=== PATIENT | female | born 1980 | race Caucasian/White ===

== ENCOUNTER 2020-09-19 12:57 | Emergency (ER) | payer OTHER, SELFPAY ==
[2020-09-19 13:23] VITALS: BP 155/96; PULSE 84; RESP 17; TEMP 36.7; O2SAT 95; BMI 27.4
--- NOTE | 2020-09-19 13:53 | ED.GENADULT ---
HPI - General Adult General Chief complaint: General Medical Stated complaint: L JAW PAIN Time Seen by Provider: 09/19/20 13:29 Source: patient Mode of arrival: ambulatory History of Present Illness HPI narrative: 40-year-old female with no significant past medical history presenting to the ED complaining of left jaw pain/swelling times a few days. Patient reports she has concern for possible abscess. Denies fever, ear pain, throat pain, intra oral swelling, difficulty swallowing, dental pain or issues Onset (ago): day(s) Related Data Previous Rx's Medication Instructions Recorded azithromycin [Zithromax TRI-JOSE MIGUEL] See Rx Instructions .ROUTE 09/19/20 .COMPLEX #6 tab Allergies Allergy/AdvReac Type Severity Reaction Status Date / Time amoxicillin [Amoxicillin] Allergy Intermediate HIVES Unverified 07/28/20 16:01 tramadol AdvReac Unknown SOB Verified 12/07/19 00:00 Review of Systems Review of Systems: Constitutional: No Weight loss, No Fever, + Chills ENT/Mouth: No Ear Pain, No Nasal Congestion, No Sinus Pain, No Hoarseness, No sore throat, No Rhinorrhea, No Swallowing Difficulty, +L jaw pain Cardiovascular: No Chest Pain, No SOB Respiratory: No Cough, No Sputum, No Wheezing Musculoskeletal: No joint pain, No Myalgias, No Joint Swelling Skin: No Skin Lesions, No rash Yes all other systems are reviewed and are negative [facility] Past Medical History Attestation statement: The following information was validated with the patient. Source: nursing notes reviewed Medical History (Updated 09/19/20 @ 16:32 by RAMONE Vazquez) Abscess Surgical History (Updated 09/19/20 @ 13:26 by Sylvia Brady RN) Tubal ligation status Social History Social History Advance Directives: No Advance Directives Information Provided: No Physical Exam Vital Signs: Vital Signs: Last Vital Signs Temp 98.3 F 09/19/20 15:36 Pulse 87 09/19/20 15:36 Resp 16 09/19/20 15:36 BP 159/89 H 09/19/20 15:36 Pulse Ox 100 09/19/20 15:36 Body Mass Index 27.4 Const: General: cooperative and healthy appearing Orientation/consciousness: patient oriented x3 Limitations: no limitations HENMT: Other: + left jaw at angle mandible swelling noted. No fluctuance, induration, or erythema. No crepitus. No TMJ or mastoid ttp Bilateral ears and intra oral mucosa WNL Ears: hearing grossly normal bilaterally, TM's normal bilaterally, mastoids normal and external ear abnormal General nose exam: Normal external nose present Mouth: Normal oral and palatal mucosa present, no drooling and no muffled voice Throat: Yes posterior oropharynx normal and Yes uvula midline Eyes: General: appearance normal, both eyes and all related structures EOM: EOMs intact bilaterally Neck: Neck: Yes normal visual inspection, Yes full ROM, Yes no meningeal signs, Yes trachea midline, Yes supple and No torticollis Resp: Effort & Inspection: normal respiratory effort, no respiratory distress and no stridor Skin: Rashes: no rashes Wounds: no wounds Neuro: General: patient oriented x3 and no meningeal signs Gait exam (Neuro): Normal gait present Extrem: General: Yes normal to inspection Course Course Course Narrative: -labs unremarkable -CT with out cystic or solid mass, interval adenopathy, abscess or acute inflammatory changes. Bilateral enlarged parotid glands in bilateral mildly atrophic submandibular glands with scattered fatty foci and some punctate parenchymal calcifications similar to prior CT >> labs/imaging results discussed with patient, with shared decision making will send patient home with antibiotic due to questionable unilateral lymphadenopathy and close PCP follow-up. Worrisome signs and symptoms and strict return precautions discussed. Patient verbalized understanding feel safe for discharge home Medical Decision Making MDM Narrative Medical decision making narrative: On exam VS, NAD/well-appearing left-sided jaw swelling. No evidence of ear or mouth involvement. Concern for possible abscess vs ? Lymphadenopathy. No evidence of SQUAD BOSS Plan: Labs, CT Lab Data Result diagrams: 09/19/20 14:02 09/19/20 14:02 Labs: Lab Results 09/19/20 09/19/20 Range/Units 14:02 14:02 WBC 5.2 (4.8-10.8) X10*3/uL RBC 3.91 L (4.20-5.50) X10*6/uL Hgb 10.0 L (12.0-16.0) g/dl Hct 33.1 L (37-47) % MCV 84.7 (80-98) fL MCH 25.6 L (27.0-33.0) pg MCHC 30.2 L (31.0-35.0) g/dl RDW 16.1 H (11.0-16.0) % Plt Count 197 (160-400) X10*3/uL MPV 12.4 H (9.4-12.3) fL Immature Gran % (Auto) Cancelled Neut % (Auto) Cancelled Lymph % (Auto) Cancelled [place] % (Auto) Cancelled Eos % (Auto) Cancelled Baso % (Auto) Cancelled Lymph # (Auto) Cancelled [place] # (Auto) Cancelled Eos # (Auto) Cancelled Baso # (Auto) Cancelled Abs Immat Gran (auto) Cancelled Absolute Neuts (auto) Cancelled Absolute Nucleated RBC 0.000 (0.0-0.012) X10*3/uL Nucleated RBC % (auto) 0.0 (0.0-0.2) /100WBC Neutrophils % (Manual) 76 H (45-73) % Band Neutrophils % 3 (3-5) % Lymphocytes % (Manual) 16 L (20-40) % Monocytes % (Manual) 5 (2-11) % Abs Neuts (Manual) 4.1 (2.2-7.9) X10*3/uL Lymphocytes # (Manual) 0.8 (0.6-4.8) X10*3/uL Monocytes # (Manual) 0.3 (0.0-1.2) X10*3/uL Platelet Estimate NORMAL (NORMAL) Plt Morphology Comment NORMAL RBC Morphology NOTED Hypochromasia 1+ Sodium 137 (135-145) mmol/L Potassium 4.5 (3.3-5.1) mmol/l Chloride 105 (96-108) mmol/L Carbon Dioxide 26 (22-29) mmol/L Anion Gap 11 L (12-20) BUN 12 (9-16) mg/dL Creatinine 0.83 (0.5-1.4) mg/dL Estim Creat Clear Calc 86.2 Estimated GFR > 60 Random Glucose 105 (60-115) mg/dL Calcium 8.4 (8.4-10.2) mg/dL Discharge Plan Discharge Clinical Impression: Lump Patient Disposition: Home, Self-Care Instructions: Lymphadenopathy (ED) Additional Instructions: Your blood work was unremarkable today in the ED Your CT scan did not show any acute findings The Z-jose miguel is an antibiotic, take as prescribed Take Tylenol and Motrin every 4-6 hours for pain/inflammation Apply ice or heat area Follow up with her doctor If area grows, turns red, looks infected, pain becomes unbearable, or spreads return to the ED Prescriptions: New azithromycin [Zithromax TRI-JOSE MIGUEL] 500 mg tablet See Rx Instructions .ROUTE .COMPLEX Qty: 6 RF: 0 Referrals: Physician,None [Primary Care Provider] - 2 days (Your primary care doctor)
--- NOTE | 2020-09-19 13:54 | CT_ITS ---
EXAMINATION: CT FACIAL WITH CONTRAST CLINICAL INFORMATION: Pain in soft tissue swelling left side near angle of jaw. Assess for cyst versus abscess/inflammatory. COMPARISON: CT neck soft tissues with contrast 03/26/2018 TECHNIQUE: Axial CT of the facial soft tissues and upper neck is performed in the axial plane using 85 mL Omnipaque 350 intravenous contrast. Additional 2-D coronal and sagittal reformatted images are generated on the CT workstation and uploaded to PACS. This CT examination was performed using dose optimization techniques as appropriate, variously including the following: *Automated exposure control *Adjustment of mA and/or kV according to patient size (this includes techniques or standardized protocols for targeted exams where dose is matched to indication/reason for exam; i.e. extremities or head) *Use of iterative reconstruction technique DLP: 376 mGy-cm FINDINGS: There is no cystic or solid mass, inflammatory changes in the soft tissue planes, or abscess. The parapharyngeal spaces are symmetric. The vallecula and epiglottis and area epiglottic folds and outbursts prevertebral soft tissues are unremarkable. Again, there is bilateral symmetric prominence of the parotid glands which show numerous scattered foci of fatty changes as well as some scattered punctate calcifications similar to prior CT. The bilateral submandibular glands again show some mild atrophy with scattered foci of fatty change again similar to prior CT. There are no inflammatory changes around the salivary glands. The bilateral infratemporal fossa and globes and retrobulbar soft tissues are unremarkable. There is no thrombophlebitis. No interval adenopathy or cystic susan changes. Prominent left submental node 0.6 cm short axis again noted. There is no fracture. The orbital rims and floors, zygomatic arches, pterygoid plates, mandible are intact. There are no air-fluid levels in the sinuses or middle ears or mastoids. Small polyp or retention cyst 1 cm again noted right maxillary sinus. CT/CT facial bones w con IMPRESSION: 1. No cystic or solid mass, interval adenopathy, abscess, or acute inflammatory changes. 2. Bilateral enlarged parotid glands and bilateral mildly atrophic submandibular glands with scattered glandular fatty foci and some punctate parenchymal calcifications similar to prior CT 2018.
[2020-09-19 14:12] LABS: Hematocrit 33.1 % (37-47); Mean Corpuscular HGB Conc 30.2 g/dl (31.0-35.0); Mean Corpuscular Hemoglobin 25.6 pg (27.0-33.0); Mean Corpuscular Volume 84.7 fL (80-98); Mean Platelet Volume 12.4 fL (9.4-12.3); Platelet Count 197 X10*3/uL (160-400); Red Blood Count 3.91 X10*6/uL (4.20-5.50); Red Cell Distribution Width 16.1 % (11.0-16.0)
[2020-09-19 14:13] LABS: WBC ABN SCTR FOR CBC 1
[2020-09-19 14:41] LABS: Anion Gap 11 (12-20); Blood Urea Nitrogen 12 mg/dL (9-16); Calcium 8.4 mg/dL (8.4-10.2); Carbon Dioxide 26 mmol/L (22-29); Chloride 105 mmol/L (96-108); Creatinine Clr Calc Pharmacy 86.2; Estimated Glomerular Filt Rate > 60; Glucose Random 105 mg/dL (60-115); Potassium 4.5 mmol/l (3.3-5.1); Sodium 137 mmol/L (135-145)
[2020-09-19 14:57] LABS: Band Neutrophils Percent 3 % (3-5); Lymphocytes Percent Manual 16 % (20-40); Monocytes Percent Manual 5 % (2-11); Neutrophils Percent Manual 76 % (45-73); RBC Morphology NOTED
[2020-09-19 15:02] LABS: Hypochromasia 1+; Platelet Estimate NORMAL (NORMAL); Platelet Morphology Comment NORMAL
[2020-09-19 15:03] LABS: Lymphocytes Absolute Manual 0.8 X10*3/uL (0.6-4.8); Monocytes Absolute Manual 0.3 X10*3/uL (0.0-1.2); Neutrophils Absolute Manual 4.1 X10*3/uL (2.2-7.9); White Blood Count 5.2 X10*3/uL (4.8-10.8)
[2020-09-19 15:36] VITALS: BP 159/89; PULSE 87; RESP 16; TEMP 36.8; O2SAT 100
[2020-09-19] MEDS: iohexoL 350 MG/ML 100 ML INFUS..BTL IV (15:45)
== END 2020-09-19 16:49 | disposition home or self-care (01) ==
PROVIDERS: Physician Assistant; Emergency Provider Emergency Medicine
DX: R68.84 Jaw pain (principal)
CPT/HCPCS: 36415; 70487; 80048; 85007; 85027; 99283; 99284; Q9967

== ENCOUNTER 2020-09-21 12:35 | Emergency (ER) | payer OTHER, SELFPAY ==
[2020-09-21 14:03] VITALS: BP 143/86; PULSE 67; RESP 16; TEMP 37.6; O2SAT 98; BMI 27.6
--- NOTE | 2020-09-21 15:13 | CT_ITS ---
EXAMINATION: CT HEAD WITHOUT CONTRAST CLINICAL INFORMATION: Headache and dizziness COMPARISON: Previous facial bone CT 09/19/[address] March 2018 TECHNIQUE: Contiguous axial imaging was performed from the skull base to vertex without intravenous administration of contrast. This CT examination was performed using dose optimization techniques as appropriate, variously including the following: *Automated exposure control *Adjustment of mA and/or kV according to patient size (this includes techniques or standardized protocols for targeted exams where dose is matched to indication/reason for exam; i.e. extremities or head) *Use of iterative reconstruction technique DLP: 668 mGy-cm FINDINGS: There is no evidence of acute intracranial hemorrhage or territorial infarction. No abnormal mass effect or midline shift is seen. Levine to white matter differentiation is well preserved. No extra-axial fluid collections are identified. The ventricles are normal in size. There is no abnormal attenuation within the brain parenchyma. The osseous structures and soft tissues are normal. There is a small polyp or cyst in the floor of the right maxillary sinus. 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 The visualized parotid glands appear prominent with areas of fatty infiltration or small cysts and small bilateral calcifications. This is similar to previous exams. CT/CT head/brain wo con IMPRESSION: No acute intracranial pathology. Prominent parotid glands with bilateral small parotid calcifications and areas of fatty infiltration versus small cysts.
[2020-09-21] MEDS: 0.9 % Sodium Chloride 1,000 ML 1000 ML IV (15:40)
[2020-09-21 15:48] LABS: Hematocrit 32.9 % (37-47); Hemoglobin 9.8 g/dl (12.0-16.0); Mean Corpuscular HGB Conc 29.8 g/dl (31.0-35.0); Mean Corpuscular Hemoglobin 25.1 pg (27.0-33.0); Mean Corpuscular Volume 84.4 fL (80-98); Mean Platelet Volume 12.3 fL (9.4-12.3); Platelet Count 210 X10*3/uL (160-400); Red Cell Distribution Width 15.9 % (11.0-16.0)
[2020-09-21 15:53] LABS: WBC ABN SCTR FOR CBC 1
[2020-09-21 16:11] LABS: White Blood Count 6.1 X10*3/uL (4.8-10.8)
[2020-09-21 16:15] LABS: Band Neutrophils Percent 1 % (3-5); Lymphocytes Absolute Manual 1.6 X10*3/uL (0.6-4.8); Lymphocytes Percent Manual 27 % (20-40); Monocytes Absolute Manual 0.5 X10*3/uL (0.0-1.2); Monocytes Percent Manual 8 % (2-11); Neutrophils Percent Manual 64 % (45-73)
[2020-09-21 16:17] LABS: Microcytosis 2+; Platelet Estimate NORMAL (NORMAL); Platelet Morphology Comment NORMAL
[2020-09-21 16:23] LABS: Alanine Aminotransferase 14 U/L (0-31); Albumin Level 3.9 g/dL (3.5-5.0); Alkaline Phosphatase 51 U/L (39-117); Anion Gap 14 (12-20); Aspartate Amino Transferase 15 U/L (5-31); Bilirubin Total 0.4 mg/dL (0.0-1.0); Blood Urea Nitrogen 14 mg/dL (9-16); Calcium 8.2 mg/dL (8.4-10.2); Carbon Dioxide 27 mmol/L (22-29); Chloride 101 mmol/L (96-108); Creatinine Clr Calc Pharmacy 91.9; Estimated Glomerular Filt Rate > 60; Glucose Random 79 mg/dL (60-115); Potassium 4.3 mmol/l (3.3-5.1); Sodium 138 mmol/L (135-145); Total Protein 7.3 g/dL (6.5-8.0)
[2020-09-21 16:28] LABS: Troponin-I High Sensitivity < 3.5 ng/L (<3.5-17.0)
[2020-09-21 16:47] VITALS: BP 152/85; PULSE 62
[2020-09-21 16:51] VITALS: BP 152/93; PULSE 62
[2020-09-21 16:52] LABS: Appearance Urine CLOUDY; Color Urine AMBER; Glucose Urine UA NEG (NEG); Leukocyte Esterase Urine 1+ (NEG); Nitrite Urine NEG (NEG); PH 5.5 (5.0-8.0); Specific Gravity - Urine >= 1.030 (1.005-1.025); Urine Blood 3+ (NEG); Urine Ketones NEG (NEG); Urine Protein 1+ MG/DL (NEG-TRACE)
[2020-09-21 16:53] VITALS: BP 157/92; PULSE 54
[2020-09-21 16:57] LABS: RBC Morphology NOTED
[2020-09-21 17:17] LABS: Amphetamine Screen Urine Not Detected (Not Detect); Barbiturates, Urine Not Detected (Not Detect); Benzodiazepines Screen Urine Not Detected (Not Detect); Cannabinoid Screen Urine POSITIVE (Not Detect); Cocaine Screen Urine Not Detected (Not Detect); Opiate Screen Urine POSITIVE (Not Detect); Phencyclidine Screen Urine Not Detected (Not Detect)
[2020-09-21 17:24] LABS: RBC Urine TNTC /HPF (0)
[2020-09-21 17:25] LABS: Mucus Urine 2+ /LPF; Squamous Epithelial Cell Urine 1+ /LPF
--- NOTE | 2020-09-21 19:22 | ED_ITS ---
HPI - Dizziness General Chief Complaint: Dizziness Stated Complaint: dizzy Time Seen by Provider: 09/21/20 15:13 Source: patient Mode of arrival: ambulatory Limitations: no limitations History of Present Illness HPI Narrative: States she was seen here 2 days ago for swelling glands and mild ear pain now having slight pain in the left ear again with dizziness. Denies headache, chest pain or shortness of breath. MD elicited complaint: dizziness Onset (ago): day(s) (1) Timing: gradual onset Severity: moderate Description: room spinning History of similar symptoms: Yes Exacerbating factors: movement/ambulation Relieving factors: remaining still Associated symptoms: denies other symptoms Related Data Previous Rx's Medication Instructions Recorded azithromycin [Zithromax TRI-JOSE MIGUEL] See Rx Instructions .ROUTE 09/19/20 .COMPLEX #6 tab meclizine 25 mg PO DAILY PRN #10 tab 09/21/20 Allergies Allergy/AdvReac Type Severity Reaction Status Date / Time amoxicillin [Amoxicillin] Allergy Intermediate HIVES Unverified 07/28/20 16:01 tramadol AdvReac Unknown SOB Verified 12/07/19 00:00 Review of Systems Review of Systems: Constitutional: No Weight loss, No Fever, No Chills, No Night Sweats, No Fatigue, No Malaise ENT/Mouth: No Hearing loss, No Ear Pain, No Nasal Congestion, No Sinus Pain, No Hoarseness, No sore throat, No Rhinorrhea, No Swallowing Difficulty Eyes: No Eye Pain, No Swelling, No Redness, No Foreign Body, No Discharge, No Vision Changes Cardiovascular: No Chest Pain, No SOB, No Dyspnea on Exertion, No Orthopnea, No Edema, No Palpitations Respiratory: No Cough, No Sputum, No Wheezing, No Smoke Exposure, No Dyspnea Gastrointestinal: No Nausea, No Vomiting, No Diarrhea, No Constipation, No abdominal Pain, No Hematochezia, No Melena Genitourinary: no irregular bleeding, No Dysuria, No Urinary Frequency, No Hematuria, No Urinary Incontinence, No Urgency, No Flank Pain, No Urinary Flow Changes, No Hesitancy Musculoskeletal: No joint pain, No Myalgias, No Joint Swelling Skin: No Skin Lesions, No rash Neuro: No Weakness, No Numbness, No Paresthesias, No Loss of Consciousness, No Headache Psych: No Anxiety/Panic, No Depression, No SI/HI/AH/VH, No Social Issues, Heme/Lymph: No Bruising, No Bleeding,No Lymphadenopathy Endocrine: No Polyuria, No Polydipsia, No Temperature Intolerance Yes all other systems are reviewed and are negative [facility] Past Medical History Attestation statement: The following information was validated with the patient. Medical History (Updated 09/22/20 @ 00:07 by Eladio Natarajan) Abscess Surgical History (Updated 09/19/20 @ 13:26 by Sylvia Brady RN) Tubal ligation status Social History Social History Advance Directives: No Advance Directives Information Provided: No Physical Exam Vital Signs: Vital Signs: Last Vital Signs Temp 99.7 F 09/21/20 14:03 Pulse 54 09/21/20 16:53 Resp 16 09/21/20 14:03 BP 157/92 H 09/21/20 16:53 Pulse Ox 98 09/21/20 14:03 Body Mass Index 27.6 Reviewed Const: General: cooperative and healthy appearing; No acute distress or intoxicated appearing Nutritional Appearance: average body habitus Orientation/consciousness: patient oriented x3 HENMT: Head: Yes normal to inspection Ears: hearing grossly normal bilaterally Eyes: General: appearance normal, both eyes and all related structures Visual Zheng: normal visual zheng by confrontation Neck: Neck: Yes normal visual inspection, No positive Brudzinski's sign, No positive Kernig's sign and No tender Thyroid: Thyroid normal Chest: Chest palpation & inspection: normal inspection of the chest Resp: Effort & Inspection: normal respiratory effort Cardio: Jugular venous distension: no JVD GI: Inspection: Yes normal to inspection Percussion: Yes normal to percussion Auscultation: normal bowel sounds : General: Yes no CVA tenderness Back/Spine/Pelvis: Back: no CVA tenderness Skin: General skin exam: no rashes or lesions noted Neuro: Other: Positive [place] Ambulates with steady straight gait General: patient oriented x3 Extrem: General: Yes normal to inspection Course Course Course Narrative: NIH/stroke scale negative MDM - Dizziness Differential Diagnosis Differential diagnosis: Likely adverse reaction to drug, benign paroxysmal positional vertigo, orthostatic hypotension and vertebral basilar insufficiency; Unlikely cerebrovascular accident, acute vestibular neuronitis and transient cerebral ischemia Medical Records Attestation: I reviewed the patient's medical records. Lab Data Attestation: I reviewed the patient's lab results. Result diagrams: 09/21/20 15:39 09/21/20 15:39 Labs: Lab Results 09/21/20 09/21/20 09/21/20 Range/Units 15:39 15:39 15:39 WBC 6.1 (4.8-10.8) X10*3/uL RBC 3.90 L (4.20-5.50) X10*6/uL Hgb 9.8 L (12.0-16.0) g/dl Hct 32.9 L (37-47) % MCV 84.4 (80-98) fL MCH 25.1 L (27.0-33.0) pg MCHC 29.8 L (31.0-35.0) g/dl RDW 15.9 (11.0-16.0) % Plt Count 210 (160-400) X10*3/uL MPV 12.3 (9.4-12.3) fL Immature Gran % (Auto) Cancelled Neut % (Auto) Cancelled Lymph % (Auto) Cancelled [place] % (Auto) Cancelled Eos % (Auto) Cancelled Baso % (Auto) Cancelled Lymph # (Auto) Cancelled [place] # (Auto) Cancelled Eos # (Auto) Cancelled Baso # (Auto) Cancelled Abs Immat Gran (auto) Cancelled Absolute Neuts (auto) Cancelled Absolute Nucleated RBC 0.000 (0.0-0.012) X10*3/uL Nucleated RBC % (auto) 0.0 (0.0-0.2) /100WBC Neutrophils % (Manual) 64 (45-73) % Band Neutrophils % 1 L (3-5) % Lymphocytes % (Manual) 27 (20-40) % Monocytes % (Manual) 8 (2-11) % Abs Neuts (Manual) 4.0 (2.2-7.9) X10*3/uL Lymphocytes # (Manual) 1.6 (0.6-4.8) X10*3/uL Monocytes # (Manual) 0.5 (0.0-1.2) X10*3/uL Platelet Estimate NORMAL (NORMAL) Plt Morphology Comment NORMAL RBC Morphology NOTED Microcytosis 2+ Sodium 138 (135-145) mmol/L Potassium 4.3 (3.3-5.1) mmol/l Chloride 101 (96-108) mmol/L Carbon Dioxide 27 (22-29) mmol/L Anion Gap 14 (12-20) BUN 14 (9-16) mg/dL Creatinine 0.78 (0.5-1.4) mg/dL Estim Creat Clear Calc 91.9 Estimated GFR > 60 Random Glucose 79 (60-115) mg/dL Calcium 8.2 L (8.4-10.2) mg/dL Total Bilirubin 0.4 (0.0-1.0) mg/dL AST 15 (5-31) U/L ALT 14 (0-31) U/L Alkaline Phosphatase 51 (39-117) U/L Troponin I High Sens < 3.5 (<3.5-17.0) ng/L Total Protein 7.3 (6.5-8.0) g/dL Albumin 3.9 (3.5-5.0) g/dL Urine Color Urine Appearance Urine pH (5.0-8.0) Ur Specific [place] (1.005-1.025) Urine Protein (NEG-TRACE) MG/DL Urine Glucose (UA) (NEG) MG/DL Urine Ketones (NEG) MG/DL Urine Blood (NEG) Urine Nitrite (NEG) Ur Leukocyte Esterase (NEG) Urine RBC (0) /HPF Urine WBC (0-4) /HPF Ur Squamous Epith Cells /LPF Urine Bacteria /LPF Urine Mucus /LPF Urine Opiates Screen (Not Detect) Ur Barbiturates Screen (Not Detect) Ur Phencyclidine Scrn (Not Detect) Ur Amphetamines Screen (Not Detect) U Benzodiazepines Scrn (Not Detect) Urine Cocaine Screen (Not Detect) U Marijuana (THC) Screen (Not Detect) 09/21/20 09/21/20 Range/Units 16:39 16:39 WBC (4.8-10.8) X10*3/uL RBC (4.20-5.50) X10*6/uL Hgb (12.0-16.0) g/dl Hct (37-47) % MCV (80-98) fL MCH (27.0-33.0) pg MCHC (31.0-35.0) g/dl RDW (11.0-16.0) % Plt Count (160-400) X10*3/uL MPV (9.4-12.3) fL Immature Gran % (Auto) Neut % (Auto) Lymph % (Auto) [place] % (Auto) Eos % (Auto) Baso % (Auto) Lymph # (Auto) [place] # (Auto) Eos # (Auto) Baso # (Auto) Abs Immat Gran (auto) Absolute Neuts (auto) Absolute Nucleated RBC (0.0-0.012) X10*3/uL Nucleated RBC % (auto) (0.0-0.2) /100WBC Neutrophils % (Manual) (45-73) % Band Neutrophils % (3-5) % Lymphocytes % (Manual) (20-40) % Monocytes % (Manual) (2-11) % Abs Neuts (Manual) (2.2-7.9) X10*3/uL Lymphocytes # (Manual) (0.6-4.8) X10*3/uL Monocytes # (Manual) (0.0-1.2) X10*3/uL Platelet Estimate (NORMAL) Plt Morphology Comment RBC Morphology Microcytosis Sodium (135-145) mmol/L Potassium (3.3-5.1) mmol/l Chloride (96-108) mmol/L Carbon Dioxide (22-29) mmol/L Anion Gap (12-20) BUN (9-16) mg/dL Creatinine (0.5-1.4) mg/dL Estim Creat Clear Calc Estimated GFR Random Glucose (60-115) mg/dL Calcium (8.4-10.2) mg/dL Total Bilirubin (0.0-1.0) mg/dL AST (5-31) U/L ALT (0-31) U/L Alkaline Phosphatase (39-117) U/L Troponin I High Sens (<3.5-17.0) ng/L Total Protein (6.5-8.0) g/dL Albumin (3.5-5.0) g/dL Urine Color ARBEN Urine Appearance CLOUDY Urine pH 5.5 (5.0-8.0) Ur Specific [place] >= 1.030 H (1.005-1.025) Urine Protein 1+ H (NEG-TRACE) MG/DL Urine Glucose (UA) NEG (NEG) MG/DL Urine Ketones NEG (NEG) MG/DL Urine Blood 3+ H (NEG) Urine Nitrite NEG (NEG) Ur Leukocyte Esterase 1+ H (NEG) Urine RBC TNTC H (0) /HPF Urine WBC 5-9 H (0-4) /HPF Ur Squamous Epith Cells 1+ /LPF Urine Bacteria NONE /LPF Urine Mucus 2+ /LPF Urine Opiates Screen POSITIVE H (Not Detect) Ur Barbiturates Screen Not Detected (Not Detect) Ur Phencyclidine Scrn Not Detected (Not Detect) Ur Amphetamines Screen Not Detected (Not Detect) U Benzodiazepines Scrn Not Detected (Not Detect) Urine Cocaine Screen Not Detected (Not Detect) U Marijuana (THC) Screen POSITIVE H (Not Detect) Discharge Plan Discharge Clinical Impression: Benign paroxysmal positional vertigo Patient Disposition: Home, Self-Care Instructions: Benign Paroxysmal Positional Vertigo (ED), Dizziness (ED) Prescriptions: New meclizine 25 mg tablet 25 mg PO DAILY PRN (Reason: dizziness) Qty: 10 RF: 0 No Action azithromycin [Zithromax TRI-JOSE MIGUEL] 500 mg tablet See Rx Instructions .ROUTE .COMPLEX Qty: 6 RF: 0 Referrals: Physician,None [Primary Care Provider] - 1 week (Primary care ) Stand Alone Forms: Work/School Release Interventions: ED Discharge Assessment Last Done: 09/21/20 19:34 Discharge Date/Time: 09/21/20 19:36
== END 2020-09-21 19:36 | disposition home or self-care (01) ==
PROVIDERS: Nurse Practitioner Primary Care; Emergency Provider Emergency Medicine
DX: H81.13 Benign paroxysmal vertigo, bilateral (principal); Z79.899 Other long term (current) drug therapy
CPT/HCPCS: 36415; 70450; 80053; 80307; 81001; 84484; 85007; 85025; 85027; 96360; 99283; 99284

== ENCOUNTER 2020-11-18 12:13 | Outpatient (REF) | payer OTHER, SELFPAY | END 2020-11-18 12:14 | disposition home or self-care (01) | LOC: HO.LAB 12:13 | PROVIDERS: Visit Provider Internal Medicine | DX: Z20.822 Contact with and (suspected) exposure to COVID-19 (principal) | CPT/HCPCS: 36415; C9803; U0003 ==

== ENCOUNTER 2020-11-23 13:28 | Outpatient (REF) | payer OTHER, SELFPAY | END 2020-11-23 13:29 | disposition home or self-care (01) | LOC: HO.LAB 13:28 | PROVIDERS: Visit Provider Internal Medicine | DX: Z20.822 Contact with and (suspected) exposure to COVID-19 (principal) | CPT/HCPCS: 36415; C9803; U0003 ==

== ENCOUNTER 2020-12-28 12:14 | Emergency (ER) | payer OTHER, SELFPAY ==
--- NOTE | ~2020-12-28 | CT_ITS ---
EXAMINATION: CT ABDOMEN AND PELVIS WITH CONTRAST CLINICAL INFORMATION: Nausea vomiting and abdominal pain COMPARISON: August 08, 2020 TECHNIQUE: Multidetector volumetric images were obtained from the superior aspect of the liver through the pubic symphysis following administration 85 mL of Omnipaque 350 intravenous contrast. Sagittal and coronal reformatted images were obtained on the technologist's workstation. Oral contrast: No This CT examination was performed using dose optimization techniques as appropriate, variously including the following: *Automated exposure control *Adjustment of mA and/or kV according to patient size (this includes techniques or standardized protocols for targeted exams where dose is matched to indication/reason for exam; i.e. extremities or head) *Use of iterative reconstruction technique DLP: 503 mGy-cm FINDINGS: LUNG BASES: Lung bases appear unremarkable without evidence of pleural or pericardial effusion. LIVER, GALLBLADDER, AND BILIARY TREE: The liver is normal in size, shape, and attenuation. No focal hepatic lesion or biliary ductal dilatation is present. The gallbladder is unremarkable with no evidence of radiopaque gallstones, gallbladder wall thickening, or obvious pericholecystic inflammatory changes. PANCREAS: Unremarkable. SPLEEN: Unremarkable. ADRENAL GLANDS: Unremarkable. KIDNEYS AND URETERS: The kidneys are normal in size, shape, and attenuation. No hydronephrosis, hydroureter, or calculi seen. No perinephric stranding. BLADDER: Unremarkable. GASTROINTESTINAL TRACT: No free air or free fluid is identified. No dilated large or small bowel are seen. There is no evidence of acute diverticulitis. No pericolonic inflammatory change. The appendix is visualized and appears unremarkable. ABDOMINAL WALL: No significant hernia is appreciated. LYMPH NODES: No lymphadenopathy is appreciated. VASCULAR: Unremarkable. PELVIC VISCERA: No abnormal pelvic mass or free fluid is appreciated. OSSEOUS STRUCTURES: No suspicious destructive bony lesions identified. CT/CT abdomen pelvis w con IMPRESSION: No evidence of ileus or obstruction. No free air or free fluid. No evidence of obstructive uropathy. No evidence of acute diverticulitis or acute appendicitis.
[2020-12-28 12:27] VITALS: BP 116/80; BP 175/95; PULSE 80; PULSE 86; RESP 20; TEMP 36.6; O2SAT 96; BMI 28.3
[2020-12-28] MEDS: Ketorolac Tromethamine 30 MG/ML VIAL IVPUSH (12:54)
[2020-12-28] MEDS: diphenhydrAMINE HCL 50 MG/ML VIAL IVPUSH (12:54)
[2020-12-28] MEDS: Metoclopramide HCl 10 MG/2 ML VIAL IVPUSH (12:54)
[2020-12-28] MEDS: 0.9 % Sodium Chloride 1,000 ML 999 ML IVCONT (12:55)
[2020-12-28 13:07] LABS: MANUAL DIFF FLAG NO
[2020-12-28 13:13] LABS: Basophils Percent Auto 0.3 % (0-2); Eosinophils Percent Auto 0.1 % (0-4); Hematocrit 36.1 % (37-47); Imm Gran Abs Auto 0.02 X10*3/uL (0.00-0.03); Imm Gran Pct Auto 0.3 % (0.0-0.4); Lymphocytes Absolute Auto 0.7 X10*3/uL (1.2-4.9); Lymphocytes Percent Auto 9.9 % (20-40); Mean Corpuscular HGB Conc 30.5 g/dl (31.0-35.0); Mean Platelet Volume 12.7 fL (9.4-12.3); Monocytes Absolute Auto 0.3 X10*3/uL (0.1-1.2); Monocytes Percent Auto 3.5 % (2-11); Neutrophils Absolute Auto 6.5 X10*3/uL (2.0-8.3); Neutrophils Percent Auto 85.9 % (45-73); Platelet Count 190 X10*3/uL (160-400); Red Cell Distribution Width 14.9 % (11.0-16.0); White Blood Count 7.5 X10*3/uL (4.8-10.8)
[2020-12-28 13:15] LABS: INTERNATIONAL NORM RATIO 1.2 (0.9-1.1)
--- NOTE | 2020-12-28 13:39 | ED_ITS ---
HPI - Abdominal Pain General Chief Complaint: General Medical Stated Complaint: CHILLS,N/V/D Time Seen by Provider: 12/28/20 12:33 Source: patient and EMS Mode of arrival: EMS Limitations: no limitations History of Present Illness HPI narrative: 40-year-old female with a past medical history of hypothyroidism, pyelonephritis, marijuana and opioid usage presenting to the ED with complaints of nausea/vomiting with diffuse abdominal pain that started today with associated chills. Reports she had a COVID test recently which was negative but unsure of the date. Denies recent travel or sick contacts or bad food exposure. Denies any focal weakness, weaight loss, dizziness, headaches, hemoptysis, jaw pain, chest pain, shortness of breath, sore throat, cough, dysuria, hematuria, vaginal discharge, diarrhea or any other symptoms complaints or concerns at this time. MD elicited complaint: abdominal pain Onset (ago): hour(s) Pain Consistency: constant Location: diffuse Severity: severe Quality: aching Radiation: none Migration to: no migration Exacerbating factors: nothing Relieving factors: nothing Associated symptoms: nausea, vomiting and chills Treatments prior to arrival: other (4 mg of Zofran IV via EMS no symptomatic relief) Related Data Previous Rx's Medication Instructions Recorded azithromycin [Zithromax TRI-JOSE MIGUEL] See Rx Instructions .ROUTE 09/19/20 .COMPLEX #6 tab meclizine 25 mg PO DAILY PRN #10 tab 09/21/20 naproxen 500 mg PO BID PRN #10 tab 12/28/20 oxycodone-acetaminophen [Percocet] 1 tab PO Q6H PRN #10 tab 12/28/20 prochlorperazine maleate 10 mg PO Q8H PRN #14 tab 12/28/20 [Compazine] Allergies Allergy/AdvReac Type Severity Reaction Status Date / Time amoxicillin [Amoxicillin] Allergy Intermediate HIVES Verified 12/28/20 12:27 tramadol AdvReac Intermediate SOB Verified 12/28/20 12:27 Review of Systems Review of Systems Constitutional : + Chills, No Weight loss, No Fever, No Night Sweats, No Fatigue, No Malaise ENT/Mouth: No ear pain, No sore throat, No Difficulty swallowing Cardiovascular : No Chest Pain, No SOB, No Dyspnea on Exertion, No Orthopnea, NoEdema, No Palpitations Respiratory : No Cough, No Sputum, No Wheezing, No Dyspnea Gastrointestinal : + Nausea, + Vomiting, + Abdominal pain, No Diarrhea, No Hematochezia, No Melena Genitourinary : No irregular bleeding, No Dysuria, No Urinary Frequency, No Hematuria,No Urinary Incontinence, No Urgency, No Flank Pain Musculoskeletal : No joint pain, No Myalgias, No Joint Swelling Skin : No Skin Lesions, No rash Neuro : No Weakness, No Numbness, No Paresthesias, No Loss of Consciousness, NoDizziness, No Headache Psych : No Social Issues, Heme/Lymph: No Bruising, No Bleeding,No Lymphadenopathy Endocrine : No Polyuria, No Polydipsia, No Temperature Intolerance Yes all other systems are reviewed and are negative Physical Exam Vital Signs: Vital Signs: Last Vital Signs Temp 98.2 F 12/28/20 16:12 Pulse 82 12/28/20 16:12 Resp 20 12/28/20 16:12 BP 165/77 H 12/28/20 16:12 Pulse Ox 100 12/28/20 16:12 Body Mass Index 28.3 vital signs have been reviewed as normal and appeared to be correct. Blood pressure hypertensive at 175/95. Heart rate normal. Respiration rate normal. Temperature normal. Oxygen saturation normal. Appearance: Alert. Actively vomiting throughout exam bilious emesis noted. Otherwise is Oriented X3 and No o ther acute distress. Head: Normal external exam. Normocephalic. Eyes: PERRLA. EOMI. Conjunctiva and sclera normal. Eyelids normal. ENT: Pharynx normal. Uvula midline. Moist mucous membranes. No trismus noted. No drooling noted. No muffled voice noted. Neck: Normal inspection. Neck supple. FROM. No adenopathy. No meningeal signs. CVS: Normal heart rate and rhythm. Heart sound normal. No murmurs noted. Pulses normal throughout. Respiratory: No respiratory distress. Painless inspiration. Breath sounds normal. No wheezes/rales/rhonchi noted. Chest nontender. No accessory muscle usage noted or decreased air movement noted. Abdomen: Soft and mild tenderness diffusely. Nondistended. No guarding. No rigidity. Bowel sounds normal in all 4 quadrants. No distention noted. No organomegaly noted. No visible injury noted. No rebound tenderness. Negative Rovsing sign. Negative obturator's sign. Negative psoas sign. Negative Lam sign. Back: No CVA tenderness. Full range of motion noted. Skin: Skin warm and dry. Normal skin color. Normal skin turgor. No rashes/lesions/lacerations noted. Extremities: Extremities exhibit normal range of motion. Extremities nontender. Neuro: Oriented X 3. No motor deficit. No sensory deficit. Reflexes normal. Course Course Course Narrative: 12:35pm - 40-year-old female with a past medical history of hypothyroidism, pyelonephritis, marijuana and opioid usage presenting to the ED with complaints of nausea/vomiting with diffuse abdominal pain that started today with associated chills. - patient received 4 mg of IV Zofran via EMS prior to arrival no symptomatic relief. When I enter the patient's room patient is actively vomiting bilious emesis otherwise in no other acute distress. Is alert and oriented x3. Mildly hypertensive otherwise all other vitals are within normal limits. Nontoxic appearing. No signs of dehydration. Abdomen is soft and mild tenderness to palpation diffusely. No CVA tenderness noted. - concern for viral syndrome vs appendicitis vs cholecystitis vs diverticulitis vs electrolyte abnormality - Plan: Labs, UA, Drug urine screen, CT scan of abd/pelvis c IV contrast. Provide a L of IV fluids, 10 mg of IV Reglan and 50 mg of IV Benadryl and re- evaluate. Reevaluation(s) Reevaluation #1: - Labs WNL. Serum quant negative for . Patient positive for marijuana. Negative for all other drugs. - UA with 15 ketones otherwise no signs of UTI. Urine negative. - COVID/RSV/flu negative. - CT scan of abdomen and pelvis within normal limits no acute processes noted. - I gave the patient 10 mg of Benadryl and Reglan and she did not have any symptomatic relief. Therefore I gave her 10 mg of Compazine and 4 mg of morphine and patient reports the Compazine is what made her feel much better therefore is requesting this to go home. She is able to tolerate p.o. fluids at this time. Will DC home with Compazine and symptomatic treatment along with instructions to return if any new or worsening symptoms to follow up with primary care provider. Patient understands agrees with this plan. Time: 16:48 [facility] - Abdominal Pain Medical Records Attestation: I reviewed the patient's medical records. Lab Data Attestation: I reviewed the patient's lab results. Result diagrams: 12/28/20 13:01 12/28/20 13:01 Labs: Lab Results 12/28/20 12/28/20 12/28/20 Range/Units 13:00 13:00 13:00 WBC (4.8-10.8) X10*3/uL RBC (4.20-5.50) X10*6/uL Hgb (12.0-16.0) g/dl Hct (37-47) % MCV (80-98) fL MCH (27.0-33.0) pg MCHC (31.0-35.0) g/dl RDW (11.0-16.0) % Plt Count (160-400) X10*3/uL MPV (9.4-12.3) fL Immature Gran % (Auto) (0.0-0.4) % Neut % (Auto) (45-73) % Lymph % (Auto) (20-40) % [place]ruff % (Auto) (2-11) % Eos % (Auto) (0-4) % Baso % (Auto) (0-2) % Lymph # (Auto) (1.2-4.9) X10*3/uL [place] # (Auto) (0.1-1.2) X10*3/uL Eos # (Auto) (0.0-0.4) X10*3/uL Baso # (Auto) (0.0-0.2) X10*3/uL Abs Immat Gran (auto) (0.00-0.03) X10*3/uL Absolute Neuts (auto) (2.0-8.3) X10*3/uL Absolute Nucleated RBC (0.0-0.012) X10*3/uL Nucleated RBC % (auto) (0.0-0.2) /100WBC PT 14.0 H (10.8-13.0) SEC INR 1.2 H (0.9-1.1) Sodium (135-145) mmol/L Potassium (3.3-5.1) mmol/L Chloride (96-108) mmol/L Carbon Dioxide (22-29) mmol/L Anion Gap (12-20) BUN (9-16) mg/dL Creatinine (0.5-1.4) mg/dL Estim Creat Clear Calc Estimated GFR Random Glucose (60-115) mg/dL Calcium (8.4-10.2) mg/dL Magnesium (1.6-2.6) mg/dL Ferritin (10-250) ng/mL Total Bilirubin (0.0-1.0) mg/dL Direct Bilirubin (0.0-0.5) mg/dL AST (5-31) U/L ALT (0-31) U/L Alkaline Phosphatase (39-117) U/L Lactate Dehydrogenase (122-220) U/L C-Reactive Protein (< or = 0.50) mg/dL Total Protein (6.5-8.0) g/dL Albumin (3.5-5.0) g/dL Procalcitonin < 0.02 ng/mL Beta HCG, Quant mIU/mL Urine Color Urine Appearance Urine pH (5.0-8.0) Ur Specific [place] (1.005-1.025) Urine Protein (NEG-TRACE) MG/DL Urine Glucose (UA) (NEG) MG/DL Urine Ketones (NEG) MG/DL Urine Blood (NEG) Urine Nitrite (NEG) Ur Leukocyte Esterase (NEG) Urine Test (NEGATIVE) Urine Opiates Screen (Not Detect) Ur Barbiturates Screen (Not Detect) Ur Phencyclidine Scrn (Not Detect) Ur Amphetamines Screen (Not Detect) U Benzodiazepines Scrn (Not Detect) Urine Cocaine Screen (Not Detect) U Marijuana (THC) Screen (Not Detect) Coronavirus (PCR) NEGATIVE (Negative) Influenza Type A (PCR) NEGATIVE (Negative) Influenza Type B (PCR) NEGATIVE (Negative) RSV RNA Qual (PCR) NEGATIVE (Negative) 12/28/20 12/28/20 12/28/20 Range/Units 13:01 13:01 13:01 WBC 7.5 (4.8-10.8) X10*3/uL RBC 4.40 (4.20-5.50) X10*6/uL Hgb 11.0 L (12.0-16.0) g/dl Hct 36.1 L (37-47) % MCV 82.0 (80-98) fL MCH 25.0 L (27.0-33.0) pg MCHC 30.5 L (31.0-35.0) g/dl RDW 14.9 (11.0-16.0) % Plt Count 190 (160-400) X10*3/uL MPV 12.7 H (9.4-12.3) fL Immature Gran % (Auto) 0.3 (0.0-0.4) % Neut % (Auto) 85.9 H (45-73) % Lymph % (Auto) 9.9 L (20-40) % Woodruff % (Auto) 3.5 (2-11) % Eos % (Auto) 0.1 (0-4) % Baso % (Auto) 0.3 (0-2) % Lymph # (Auto) 0.7 L (1.2-4.9) X10*3/uL [place] # (Auto) 0.3 (0.1-1.2) X10*3/uL Eos # (Auto) 0.0 (0.0-0.4) X10*3/uL Baso # (Auto) 0.0 (0.0-0.2) X10*3/uL Abs Immat Gran (auto) 0.02 (0.00-0.03) X10*3/uL Absolute Neuts (auto) 6.5 (2.0-8.3) X10*3/uL Absolute Nucleated RBC 0.000 (0.0-0.012) X10*3/uL Nucleated RBC % (auto) 0.0 (0.0-0.2) /100WBC PT (10.8-13.0) SEC INR (0.9-1.1) Sodium 138 (135-145) mmol/L Potassium 3.8 (3.3-5.1) mmol/L Chloride 107 (96-108) mmol/L Carbon Dioxide 23 (22-29) mmol/L Anion Gap 12 (12-20) BUN 9 (9-16) mg/dL Creatinine 0.78 (0.5-1.4) mg/dL Estim Creat Clear Calc 93.1 Estimated GFR > 60 Random Glucose 126 H D (60-115) mg/dL Calcium 8.8 D (8.4-10.2) mg/dL Magnesium 1.9 (1.6-2.6) mg/dL Ferritin 13 (10-250) ng/mL Total Bilirubin 0.6 (0.0-1.0) mg/dL Direct Bilirubin 0.2 (0.0-0.5) mg/dL AST 19 (5-31) U/L ALT 18 (0-31) U/L Alkaline Phosphatase 56 (39-117) U/L Lactate Dehydrogenase 179 (122-220) U/L C-Reactive Protein 0.29 (< or = 0.50) mg/dL Total Protein 8.1 H (6.5-8.0) g/dL Albumin 4.4 (3.5-5.0) g/dL Procalcitonin ng/mL Beta HCG, Quant < 2 mIU/mL Urine Color Urine Appearance Urine pH (5.0-8.0) Ur Specific [place] (1.005-1.025) Urine Protein (NEG-TRACE) MG/DL Urine Glucose (UA) (NEG) MG/DL Urine Ketones (NEG) MG/DL Urine Blood (NEG) Urine Nitrite (NEG) Ur Leukocyte Esterase (NEG) Urine Test (NEGATIVE) Urine Opiates Screen (Not Detect) Ur Barbiturates Screen (Not Detect) Ur Phencyclidine Scrn (Not Detect) Ur Amphetamines Screen (Not Detect) U Benzodiazepines Scrn (Not Detect) Urine Cocaine Screen (Not Detect) U Marijuana (THC) Screen (Not Detect) Coronavirus (PCR) (Negative) Influenza Type A (PCR) (Negative) Influenza Type B (PCR) (Negative) RSV RNA Qual (PCR) (Negative) 12/28/20 12/28/20 Range/Units 14:24 14:24 WBC (4.8-10.8) X10*3/uL RBC (4.20-5.50) X10*6/uL Hgb (12.0-16.0) g/dl Hct (37-47) % MCV (80-98) fL MCH (27.0-33.0) pg MCHC (31.0-35.0) g/dl RDW (11.0-16.0) % Plt Count (160-400) X10*3/uL MPV (9.4-12.3) fL Immature Gran % (Auto) (0.0-0.4) % Neut % (Auto) (45-73) % Lymph % (Auto) (20-40) % Woodruff % (Auto) (2-11) % Eos % (Auto) (0-4) % Baso % (Auto) (0-2) % Lymph # (Auto) (1.2-4.9) X10*3/uL [place] # (Auto) (0.1-1.2) X10*3/uL Eos # (Auto) (0.0-0.4) X10*3/uL Baso # (Auto) (0.0-0.2) X10*3/uL Abs Immat Gran (auto) (0.00-0.03) X10*3/uL Absolute Neuts (auto) (2.0-8.3) X10*3/uL Absolute Nucleated RBC (0.0-0.012) X10*3/uL Nucleated RBC % (auto) (0.0-0.2) /100WBC PT (10.8-13.0) SEC INR (0.9-1.1) Sodium (135-145) mmol/L Potassium (3.3-5.1) mmol/L Chloride (96-108) mmol/L Carbon Dioxide (22-29) mmol/L Anion Gap (12-20) BUN (9-16) mg/dL Creatinine (0.5-1.4) mg/dL Estim Creat Clear Calc Estimated GFR Random Glucose (60-115) mg/dL Calcium (8.4-10.2) mg/dL Magnesium (1.6-2.6) mg/dL Ferritin (10-250) ng/mL Total Bilirubin (0.0-1.0) mg/dL Direct Bilirubin (0.0-0.5) mg/dL AST (5-31) U/L ALT (0-31) U/L Alkaline Phosphatase (39-117) U/L Lactate Dehydrogenase (122-220) U/L C-Reactive Protein (< or = 0.50) mg/dL Total Protein (6.5-8.0) g/dL Albumin (3.5-5.0) g/dL Procalcitonin ng/mL Beta HCG, Quant mIU/mL Urine Color STRAW Urine Appearance HAZY Urine pH 8.5 H (5.0-8.0) Ur Specific [place] 1.020 (1.005-1.025) Urine Protein NEG (NEG-TRACE) MG/DL Urine Glucose (UA) NEG (NEG) MG/DL Urine Ketones 15 (NEG) MG/DL Urine Blood NEG (NEG) Urine Nitrite NEG (NEG) Ur Leukocyte Esterase NEG (NEG) Urine Test NEGATIVE (NEGATIVE) Urine Opiates Screen Not Detected (Not Detect) Ur Barbiturates Screen Not Detected (Not Detect) Ur Phencyclidine Scrn Not Detected (Not Detect) Ur Amphetamines Screen Not Detected (Not Detect) U Benzodiazepines Scrn Not Detected (Not Detect) Urine Cocaine Screen Not Detected (Not Detect) U Marijuana (THC) Screen POSITIVE H (Not Detect) Coronavirus (PCR) (Negative) Influenza Type A (PCR) (Negative) Influenza Type B (PCR) (Negative) RSV RNA Qual (PCR) (Negative) Imaging Data CT scan of abdomen and pelvis with IV contrast: Attestation: I personally reviewed and interpreted this imaging study as follows: Radiologist's impression: FINDINGS: LUNG BASES: Lung bases appear unremarkable without evidence of pleural or pericardial effusion. LIVER, GALLBLADDER, AND BILIARY TREE: The liver is normal in size, shape, and attenuation. No focal hepatic lesion or biliary ductal dilatation is present. The gallbladder is unremarkable with no evidence of radiopaque gallstones, gallbladder wall thickening, or obvious pericholecystic inflammatory changes. PANCREAS: Unremarkable. SPLEEN: Unremarkable. ADRENAL GLANDS: Unremarkable. KIDNEYS AND URETERS: The kidneys are normal in size, shape, and attenuation. No hydronephrosis, hydroureter, or calculi seen. No perinephric stranding. BLADDER: Unremarkable. GASTROINTESTINAL TRACT: No free air or free fluid is identified. No dilated large or small bowel are seen. There is no evidence of acute diverticulitis. No pericolonic inflammatory change. The appendix is visualized and appears unremarkable. ABDOMINAL WALL: No significant hernia is appreciated. LYMPH NODES: No lymphadenopathy is appreciated. VASCULAR: Unremarkable. PELVIC VISCERA: No abnormal pelvic mass or free fluid is appreciated. OSSEOUS STRUCTURES: No suspicious destructive bony lesions identified. CT/CT abdomen pelvis w con IMPRESSION: No evidence of ileus or obstruction. No free air or free fluid. No evidence of obstructive uropathy. No evidence of acute diverticulitis or acute appendicitis. Discharge Plan Discharge Clinical Impression: Abdominal pain, Nausea & vomiting Patient Disposition: Home, Self-Care Instructions: Acute Nausea and Vomiting (ED), Abdominal Pain (ED) Prescriptions: New prochlorperazine maleate [Compazine] 10 mg tablet 10 mg PO Q8H PRN (Reason: nausea and vomiting) Qty: 14 RF: 0 oxycodone-acetaminophen [Percocet] 5-325 mg tablet 1 tab PO Q6H PRN (Reason: pain) Qty: 10 RF: 0 naproxen 500 mg tablet 500 mg PO BID PRN (Reason: pain) Qty: 10 RF: 0 No Action meclizine 25 mg tablet 25 mg PO DAILY PRN (Reason: dizziness) Qty: 10 RF: 0 azithromycin [Zithromax TRI-JOSE MIGUEL] 500 mg tablet See Rx Instructions .ROUTE .COMPLEX Qty: 6 RF: 0 Referrals: Physician,None [Primary Care Provider] - 2 days (your pcp) Stand Alone Forms: Work/School Release Print Language: Croatian [facility] Past Medical History Attestation statement: The following information was validated with the patient. Medical History Abscess Surgical History Tubal ligation status Social History Social History Alcohol intake: current Alcohol intake frequency: holidays/special occasions only Smoking Status: Current every day smoker Use of substances other than those prescribed or required for medical reasons: Yes Substance Use Type: Marijuana Last Used Substance: Days (ago) Advance Directives: No Advance Directives Information Provided: No
[2020-12-28 13:47] LABS: Alanine Aminotransferase 18 U/L (0-31); Albumin Level 4.4 g/dL (3.5-5.0); Alkaline Phosphatase 56 U/L (39-117); Anion Gap 12 (12-20); Aspartate Amino Transferase 19 U/L (5-31); Bilirubin Direct 0.2 mg/dL (0.0-0.5); Bilirubin Total 0.6 mg/dL (0.0-1.0); Blood Urea Nitrogen 9 mg/dL (9-16); C Reactive Protein 0.29 mg/dL (< or = 0.50); Calcium 8.8 mg/dL (8.4-10.2); Carbon Dioxide 23 mmol/L (22-29); Chloride 107 mmol/L (96-108); Creatinine Clr Calc Pharmacy 93.1; Estimated Glomerular Filt Rate > 60; Glucose Random 126 mg/dL (60-115); Lactate Dehydrogenase 179 U/L (122-220); Magnesium 1.9 mg/dL (1.6-2.6); Potassium 3.8 mmol/L (3.3-5.1); Sodium 138 mmol/L (135-145); Total Protein 8.1 g/dL (6.5-8.0)
[2020-12-28 13:51] LABS: Influenza A PCR NEGATIVE (Negative); Influenza B PCR NEGATIVE (Negative); Resp Syncy Virus RNA Qual PCR NEGATIVE (Negative); SARS COV2 PCR INHOUSE NEGATIVE (Negative)
[2020-12-28 13:57] LABS: Ferritin 13 ng/mL (10-250)
--- NOTE | 2020-12-28 14:18 | PC.NURSE ---
patient a&ox3, c/o 08/20 abd pain, vitals stable, pt medicated per order, labs drawn, pt aware we need urine, will continue to monitor.
[2020-12-28 14:20] LABS: Procalcitonin < 0.02 ng/mL
[2020-12-28 14:21] VITALS: BP 181/93; PULSE 74; RESP 20; TEMP 36.8; O2SAT 100
[2020-12-28 14:39] LABS: Glucose Urine UA NEG (NEG); Leukocyte Esterase Urine NEG (NEG); Nitrite Urine NEG (NEG); PH 8.5 (5.0-8.0); Urine Blood NEG (NEG); Urine Ketones 15 MG/DL (NEG); Urine Protein NEG (NEG-TRACE)
[2020-12-28 14:40] LABS: Appearance Urine HAZY; Color Urine STRAW
[2020-12-28 14:41] LABS: UPreg QC Valid YES; Urine Pregnancy NEGATIVE (NEGATIVE)
[2020-12-28 14:43] LABS: HCG Quantitative < 2 mIU/mL
--- NOTE | 2020-12-28 14:51 | PC.NURSE ---
patient continues to c/o 08/20 abd pain, nausea/vomiting, provider notified, pts daughter kamryn called per request of patient she was updated on her mothers status
[2020-12-28] MEDS: Morphine Sulfate 4 MG/ML CARTRIDGE IVPUSH (15:03)
[2020-12-28] MEDS: Prochlorperazine Edisylate 10 MG/2 ML VIAL IVPUSH (15:04)
--- NOTE | 2020-12-28 15:04 | PC.NURSE ---
patient medicated for pain per order
[2020-12-28 15:08] LABS: Amphetamine Screen Urine Not Detected (Not Detect); Barbiturates, Urine Not Detected (Not Detect); Benzodiazepines Screen Urine Not Detected (Not Detect); Cannabinoid Screen Urine POSITIVE (Not Detect); Cocaine Screen Urine Not Detected (Not Detect); Opiate Screen Urine Not Detected (Not Detect); Phencyclidine Screen Urine Not Detected (Not Detect)
[2020-12-28] MEDS: iohexoL 350 MG/ML 100 ML INFUS..BTL 85 ML IV (15:44)
[2020-12-28 16:12] VITALS: BP 165/77; PULSE 82; RESP 20; TEMP 36.8; O2SAT 100
--- NOTE | 2020-12-28 16:13 | PC.NURSE ---
gaurang a&ox3, pt states she is sweating and cold at the same time, c/o 8 abd pain and states her nausea is only a little bit better, vss, will continue to montior
== END 2020-12-28 17:35 | disposition home or self-care (01) ==
PROVIDERS: Physician Assistant Medical; Emergency Provider Emergency Medicine
DX: R10.9 Unspecified abdominal pain (principal); R11.2 Nausea with vomiting, unspecified; F12.90 Cannabis use, unspecified, uncomplicated; F11.10 Opioid abuse, uncomplicated; F17.200 Nicotine dependence, unspecified, uncomplicated; Z71.6 Tobacco abuse counseling; Z20.822 Contact with and (suspected) exposure to COVID-19
CPT/HCPCS: 0241U; 36415; 74177; 80048; 80076; 80307; 81003; 81025; 82728; 83615; 83735; 84145; 84702; 85025; 85610; 86140; 96361; 96374; 96375; 99284; J1200; J1885; J2270; J2765; Q9967

== ENCOUNTER 2020-12-31 15:44 | Emergency (ER) | payer OTHER, SELFPAY ==
[2020-12-31 16:13] VITALS: BP 134/103; PULSE 89; RESP 16; TEMP 37.7; O2SAT 98; BMI 27.4
[2020-12-31 21:05] VITALS: BP 163/93; PULSE 79; RESP 18; TEMP 37.4; O2SAT 100
[2020-12-31 21:16] LABS: Basophils Percent Auto 0.1 % (0-2); Hematocrit 36.3 % (37-47); Hemoglobin 11.2 g/dl (12.0-16.0); Imm Gran Abs Auto 0.02 X10*3/uL (0.00-0.03); Imm Gran Pct Auto 0.2 % (0.0-0.4); Lymphocytes Absolute Auto 1.9 X10*3/uL (1.2-4.9); Lymphocytes Percent Auto 21.4 % (20-40); MANUAL DIFF FLAG NO; Mean Corpuscular HGB Conc 30.9 g/dl (31.0-35.0); Mean Corpuscular Hemoglobin 24.9 pg (27.0-33.0); Mean Corpuscular Volume 80.7 fL (80-98); Monocytes Absolute Auto 0.8 X10*3/uL (0.1-1.2); Monocytes Percent Auto 8.8 % (2-11); Neutrophils Absolute Auto 6.2 X10*3/uL (2.0-8.3); Neutrophils Percent Auto 69.5 % (45-73); Platelet Count 232 X10*3/uL (160-400); Red Cell Distribution Width 15.2 % (11.0-16.0); WBC ABN SCTR 1
[2020-12-31 21:17] LABS: WBC ABN SCTR FOR CBC 1; White Blood Count 8.9 X10*3/uL (4.8-10.8)
[2020-12-31] MEDS: 0.9 % Sodium Chloride 1,000 ML 999 ML IVCONT (21:23)
--- NOTE | 2020-12-31 21:23 | ECG_ITS ---
Test Reason : ABDOMINAL PAIN Blood Pressure : / mmHG Vent. Rate : 074 BPM Atrial Rate : 074 BPM P-R Int : 138 ms QRS Dur : 090 ms QT Int : 450 ms P-R-T Axes : 061 062 042 degrees QTc Int : 499 ms Normal sinus rhythm Possible Left atrial enlargement Left ventricular hypertrophy Prolonged QT Abnormal ECG No previous ECGs available Referred By: Sydnee Ricks Electronically Signed By:Benjamin Zayas
--- NOTE | 2020-12-31 21:24 | ED_ITS ---
HPI - Abdominal Pain General Chief Complaint: Abdominal Pain Stated Complaint: abd pain, vomiting Time Seen by Provider: 12/31/20 21:10 Source: patient Mode of arrival: ambulatory Limitations: no limitations History of Present Illness HPI narrative: Patient comes to emergency room complaining of nausea and vomiting and epigastric burning. Patient was seen here on December 28 for the same reason. Patient also had a CT scan done which showed no acute pathology. Patient admits that she has been constantly smoking marijuana. Patient reports 1 episode of loose stool. Patient states that Zofran and Compazine did not work is to control the nausea and vomiting MD elicited complaint: other (Nausea vomiting) Related Data Previous Rx's Medication Instructions Recorded azithromycin [Zithromax TRI-JOSE MIGUEL] See Rx Instructions .ROUTE 09/19/20 .COMPLEX #6 tab meclizine 25 mg PO DAILY PRN #10 tab 09/21/20 naproxen 500 mg PO BID PRN #10 tab 12/28/20 oxycodone-acetaminophen [Percocet] 1 tab PO Q6H PRN #10 tab 12/28/20 prochlorperazine maleate 10 mg PO Q8H PRN #14 tab 12/28/20 [Compazine] promethazine 25 mg PO Q6H PRN #14 tab 12/31/20 Allergies Allergy/AdvReac Type Severity Reaction Status Date / Time amoxicillin [Amoxicillin] Allergy Intermediate HIVES Verified 12/28/20 12:27 tramadol AdvReac Intermediate SOB Verified 12/28/20 12:27 Review of Systems Review of Systems Constitutional : No Weight loss, No Fever, No Chills, No Night Sweats, No Fatigue, No Malaise ENT/Mouth : No Hearing loss, No Ear Pain, No Nasal Congestion, No Sinus Pain, No Hoarseness, No sore throat, No Rhinorrhea, No Swallowing Difficulty Eyes: No Eye Pain, No Swelling, No Redness, No Foreign Body, No Discharge, No Vision Changes Cardiovascular : No Chest Pain, No SOB, No Dyspnea on Exertion, No Orthopnea, No Edema, No Palpitations Respiratory : No Cough, No Sputum, No Wheezing, No Smoke Exposure, No Dyspnea Gastrointestinal : Complaining of nausea, vomiting, 1 episode of loose stool, No Constipation, epigastric burning sensation, No Hematochezia, No Melena Genitourinary : no irregular bleeding, No Dysuria, No Urinary Frequency, No Hematuria, No Urinary Incontinence, No Urgency, No Flank Pain, No Urinary Flow Changes, No Hesitancy Musculoskeletal : No joint pain, No Myalgias, No Joint Swelling Skin : No Skin Lesions, No rash Neuro : No Weakness, No Numbness, No Paresthesias, No Loss of Consciousness, No Dizziness, No Headache Psych : No Anxiety/Panic, No Depression, No SI/HI/AH/VH, No Social Issues, Heme/Lymph: No Bruising, No Bleeding,No Lymphadenopathy Endocrine : No Polyuria, No Polydipsia, No Temperature Intolerance Physical Exam Vital Signs: Vital Signs: Last Vital Signs Temp 98.2 F 12/31/20 21:52 Pulse 79 12/31/20 21:52 Resp 18 12/31/20 21:52 BP 165/90 H 12/31/20 21:52 Pulse Ox 98 12/31/20 21:52 Body Mass Index 27.4 Appearance: Alert. Oriented X3. Mild distress, seems uncomfortable Eyes: Pupils equal, round and reactive to light. ENT: Pharynx normal. Neck: Normal inspection. Neck supple. No lymph nodes noted. No crepitus CVS: Normal heart rate and rhythm. Pulses normal. Normal S1 and S2 Respiratory: No respiratory distress. Breath sounds normal. No Wheezing. No rales Abdomen: Soft and nontender. No rigidity. No distention. good BS x4 Skin: Skin warm and dry. Normal skin color. Normal skin turgor. Extremities: No lower extremity edema. No lower extremity edema. No Lacerations. No Rash Neuro: Oriented X 3. No motor deficit. No sensory deficit. Moving all extermities. No slurred speech. Course Course Course Narrative: Patient has not vomited in the emergency room, patient more comfortable, patient had good effect with Phenergan. I discussed with the patient to stop smoking marijuana, patient states she was not aware that marijuana can cause cyclical vomiting, but now she is aware. MDM - Abdominal Pain Lab Data Result diagrams: 12/31/20 21:09 12/31/20 21:09 Labs: Lab Results 12/31/20 12/31/20 12/31/20 Range/Units 21:09 21:09 21:09 WBC 8.9 (4.8-10.8) X10*3/uL RBC 4.50 (4.20-5.50) X10*6/uL Hgb 11.2 L (12.0-16.0) g/dl Hct 36.3 L (37-47) % MCV 80.7 (80-98) fL MCH 24.9 L (27.0-33.0) pg MCHC 30.9 L (31.0-35.0) g/dl RDW 15.2 (11.0-16.0) % Plt Count 232 (160-400) X10*3/uL MPV 12.0 (9.4-12.3) fL Immature Gran % (Auto) 0.2 (0.0-0.4) % Neut % (Auto) 69.5 (45-73) % Lymph % (Auto) 21.4 (20-40) % [place] % (Auto) 8.8 (2-11) % Eos % (Auto) 0.0 (0-4) % Baso % (Auto) 0.1 (0-2) % Lymph # (Auto) 1.9 (1.2-4.9) X10*3/uL [place] # (Auto) 0.8 (0.1-1.2) X10*3/uL Eos # (Auto) 0.0 (0.0-0.4) X10*3/uL Baso # (Auto) 0.0 (0.0-0.2) X10*3/uL Abs Immat Gran (auto) 0.02 (0.00-0.03) X10*3/uL Absolute Neuts (auto) 6.2 (2.0-8.3) X10*3/uL Absolute Nucleated RBC 0.000 (0.0-0.012) X10*3/uL Nucleated RBC % (auto) 0.0 (0.0-0.2) /100WBC Hold Blue Top SEE NOTE Sodium 140 (135-145) mmol/L Potassium 3.3 (3.3-5.1) mmol/L Chloride 104 (96-108) mmol/L Carbon Dioxide 24 (22-29) mmol/L Anion Gap 15 (12-20) BUN 13 (9-16) mg/dL Creatinine 0.83 (0.5-1.4) mg/dL Estim Creat Clear Calc 86.2 Estimated GFR > 60 Random Glucose 111 (60-115) mg/dL Calcium 9.4 D (8.4-10.2) mg/dL Total Bilirubin 0.8 (0.0-1.0) mg/dL Direct Bilirubin 0.3 (0.0-0.5) mg/dL AST 20 (5-31) U/L ALT 15 (0-31) U/L Alkaline Phosphatase 57 (39-117) U/L Total Protein 8.9 H (6.5-8.0) g/dL Albumin 4.8 (3.5-5.0) g/dL Lipase 35 (8-78) U/L Discharge Plan Discharge Clinical Impression: Cyclical vomiting Patient Disposition: Home, Self-Care Instructions: Cyclic Vomiting Syndrome (ED) Additional Instructions: Please follow-up with your primary care physician tomorrow. If you have any worsening or new symptoms, please return to the emergency room or call 911 Prescriptions: New promethazine 25 mg tablet 25 mg PO Q6H PRN (Reason: nausea and vomiting) Qty: 14 RF: 0 No Action meclizine 25 mg tablet 25 mg PO DAILY PRN (Reason: dizziness) Qty: 10 RF: 0 prochlorperazine maleate [Compazine] 10 mg tablet 10 mg PO Q8H PRN (Reason: nausea and vomiting) Qty: 14 RF: 0 oxycodone-acetaminophen [Percocet] 5-325 mg tablet 1 tab PO Q6H PRN (Reason: pain) Qty: 10 RF: 0 naproxen 500 mg tablet 500 mg PO BID PRN (Reason: pain) Qty: 10 RF: 0 azithromycin [Zithromax TRI-JOSE MIGUEL] 500 mg tablet See Rx Instructions .ROUTE .COMPLEX Qty: 6 RF: 0 Stand Alone Forms: Work/School Release [facility] Past Medical History Medical History (Updated 12/31/20 @ 23:51 by Sydnee Ricks MD) Abscess Cyclical vomiting Surgical History Tubal ligation status Social History Social History Alcohol intake: never Smoking Status: Current every day smoker Substance Use Type: Marijuana Substance Use Frequency: Occasionally Advance Directives: No Advance Directives Information Provided: Yes
[2020-12-31] MEDS: Famotidine/PF 20 MG/2 ML VIAL IVPUSH (21:33)
[2020-12-31] MEDS: Lidocaine HCl Viscous 2 % 15 ML SOLUTION MUCOUS MEM (21:34)
[2020-12-31] MEDS: Magnesium Hydrox/Alum Hydrox 30 ML ORAL.SUSP PO (21:34)
[2020-12-31 21:38] LABS: Alanine Aminotransferase 15 U/L (0-31); Albumin Level 4.8 g/dL (3.5-5.0); Alkaline Phosphatase 57 U/L (39-117); Anion Gap 15 (12-20); Aspartate Amino Transferase 20 U/L (5-31); Bilirubin Total 0.8 mg/dL (0.0-1.0); Blood Urea Nitrogen 13 mg/dL (9-16); Calcium 9.4 mg/dL (8.4-10.2); Carbon Dioxide 24 mmol/L (22-29); Chloride 104 mmol/L (96-108); Creatinine Clr Calc Pharmacy 86.2; Estimated Glomerular Filt Rate > 60; Glucose Random 111 mg/dL (60-115); Potassium 3.3 mmol/L (3.3-5.1); Sodium 140 mmol/L (135-145); Total Protein 8.9 g/dL (6.5-8.0)
[2020-12-31 21:52] VITALS: BP 165/90; PULSE 79; RESP 18; TEMP 36.8; O2SAT 98
[2020-12-31 21:52] LABS: Bilirubin Direct 0.3 mg/dL (0.0-0.5); Lipase 35 U/L (8-78)
[2021-01-01] VITALS: BP 135/85; PULSE 89; RESP 18; TEMP 37.3; O2SAT 100
== END 2021-01-01 00:09 | disposition home or self-care (01) ==
PROVIDERS: Emergency Provider Emergency Medicine; PCP Family Medicine
DX: R11.15 Cyclical vomiting syndrome unrelated to migraine (principal); F12.90 Cannabis use, unspecified, uncomplicated
CPT/HCPCS: 36415; 80053; 80076; 82248; 83690; 85025; 93005; 96361; 96374; 96375; 99284

== ENCOUNTER 2021-01-01 13:01 | Inpatient (IN) | payer OTHER, SELFPAY ==
--- NOTE | ~2021-01-01 | CT_ITS ---
EXAMINATION: CT ABDOMEN AND PELVIS WITH CONTRAST CLINICAL INFORMATION: Abdominal pain COMPARISON: 12/28/2020 TECHNIQUE: Multidetector volumetric images were obtained from the superior aspect of the liver through the pubic symphysis following administration 85 mL of Omnipaque 350 intravenous contrast. Sagittal and coronal reformatted images were obtained on the technologist's workstation. Oral contrast: No This CT examination was performed using dose optimization techniques as appropriate, variously including the following: *Automated exposure control *Adjustment of mA and/or kV according to patient size (this includes techniques or standardized protocols for targeted exams where dose is matched to indication/reason for exam; i.e. extremities or head) *Use of iterative reconstruction technique DLP: 526 mGy-cm FINDINGS: LUNG BASES: The visualized lung bases are unremarkable. LIVER, GALLBLADDER, AND BILIARY TREE: The liver is normal in size, shape, and attenuation. No focal hepatic lesion or biliary ductal dilatation is present. The gallbladder is unremarkable with no evidence of radiopaque gallstones, gallbladder wall thickening, or obvious pericholecystic inflammatory changes. PANCREAS: Unremarkable. SPLEEN: Unremarkable. ADRENAL GLANDS: Unremarkable. KIDNEYS AND URETERS: The kidneys are normal in size, shape, and attenuation. No hydronephrosis, hydroureter, or calculi seen. No perinephric stranding. BLADDER: Normally distended without wall thickening. There is a crescentic area of fluid seen inferior to the bladder, along the tract of the urethra. This could represent a urethral diverticulum or vaginal inclusion cyst. This is unchanged from the recent prior. GASTROINTESTINAL TRACT: The stomach is unremarkable. Normal caliber small bowel. There is no obstruction. No colonic wall thickening or inflammatory change. Normal appendix. No free air. No free fluid. ABDOMINAL WALL: No significant hernia is appreciated. LYMPH NODES: Normal. VASCULAR: Unremarkable. PELVIC VISCERA: Anteverted uterus. Likely nabothian cysts. Endometrial thickness of 0.8 cm. There is no adnexal mass. OSSEOUS STRUCTURES: No acute or suspicious osseous abnormality. CT/CT abdomen pelvis w con IMPRESSION: No acute findings in the abdomen or pelvis. No inflammatory changes. Crescentic fluid-filled structure along the course of the urethra, suspicious for a urethral diverticulum or vaginal inclusion cyst. This is unchanged over multiple prior studies.
[2021-01-01 13:45] VITALS: BP 189/78; PULSE 104; RESP 20; TEMP 36.6; O2SAT 98; BMI 27.3
--- NOTE | 2021-01-01 17:54 | ED.ABDPAIN ---
HPI - Abdominal Pain General Chief Complaint: Abdominal Pain Stated Complaint: stomach pain,nausea and vomiting Time Seen by Provider: 01/01/21 17:30 Source: patient Mode of arrival: ambulatory Limitations: no limitations History of Present Illness HPI narrative: 40-year-old female with a past medical history of hypothyroidism, pyelonephritis, marijuana and opioid usage presenting to the ED with complaints of nausea, vomiting and diffuse abdominal pain that started several days ago. This is her 3rd visit to this emergency department for this complaint. Reports she had a COVID test recently which was negative but unsure of the date. Denies recent travel or sick contacts or bad food exposure. Denies any focal weakness, weight loss, dizziness, headaches, hemoptysis, jaw pain, chest pain, shortness of breath, sore throat, cough, dysuria, hematuria, vaginal discharge and abnormal bleeding, diarrhea or any other symptoms complaints or concerns at this time MD elicited complaint: abdominal pain Onset (ago): day(s) Pain Consistency: constant Location: diffuse Severity: severe Pain scale (0-10): 10 Quality: cramping, stabbing and aching Exacerbating factors: eating, vomiting and movement Relieving factors: nothing Associated symptoms: nausea, vomiting, chills and anorexia Related Data Previous Rx's Medication Instructions Recorded azithromycin [Zithromax TRI-JOSE MIGUEL] See Rx Instructions .ROUTE 09/19/20 .COMPLEX #6 tab meclizine 25 mg PO DAILY PRN #10 tab 09/21/20 naproxen 500 mg PO BID PRN #10 tab 12/28/20 oxycodone-acetaminophen [Percocet] 1 tab PO Q6H PRN #10 tab 12/28/20 prochlorperazine maleate 10 mg PO Q8H PRN #14 tab 12/28/20 [Compazine] promethazine 25 mg PO Q6H PRN #14 tab 12/31/20 cephalexin 500 mg PO Q8H 7 Days #21 cap 01/01/21 metoclopramide HCl [Reglan] 10 mg PO Q6H PRN #30 tab 01/01/21 oxycodone 5 mg PO Q8H PRN #2 tab 01/01/21 phenazopyridine [Pyridium] 200 mg PO TID PRN #6 tab 01/01/21 Allergies Allergy/AdvReac Type Severity Reaction Status Date / Time amoxicillin [Amoxicillin] Allergy Intermediate HIVES Verified 12/28/20 12:27 tramadol AdvReac Intermediate SOB Verified 12/28/20 12:27 Review of Systems Review of Systems Constitutional: No Weight loss, No Fever, No Chills, No Night Sweats, No Fatigue, No Malaise ENT/Mouth: No Hearing loss, No Ear Pain, No Nasal Congestion, No Sinus Pain, No Hoarseness, No sore throat, No Rhinorrhea, No Swallowing Difficulty Eyes: No Eye Pain, No Swelling, No Redness, No Foreign Body, No Discharge, No Vision Changes Cardiovascular: No Chest Pain, No SOB, No Dyspnea on Exertion, No Orthopnea, No Edema, No Palpitations Respiratory: No Cough, No Sputum, No Wheezing, No Smoke Exposure, No Dyspnea Gastrointestinal: Positive Nausea, Positive Vomiting, no Diarrhea, positive abdominal Pain, No Hematochezia, No Melena Genitourinary: no irregular bleeding, No Dysuria, No Urinary Frequency, No Hematuria, No Urinary Incontinence, No Urgency, No Flank Pain, No Urinary Flow Changes, No Hesitancy Musculoskeletal: No joint pain, No Myalgias, No Joint Swelling Skin: No Skin Lesions, No rash Neuro: No Weakness, No Numbness, No Paresthesias, No Loss of Consciousness, No Dizziness, No Headache Psych: No Anxiety/Panic, No Depression, No SI/HI/AH/VH, No Social Issues Heme/Lymph: No Bruising, No Bleeding,No Lymphadenopathy Endocrine: No Polyuria, No Polydipsia, No Temperature Intolerance Yes all other systems are reviewed and are negative Physical Exam Vital Signs: Vital Signs: Last Vital Signs Temp 99.5 F 01/01/21 20:55 Pulse 75 01/02/21 00:10 Resp 16 01/02/21 00:12 BP 125/77 01/02/21 00:10 Pulse Ox 97 01/02/21 00:10 Body Mass Index 27.3 Appearance: Alert. Oriented X3. Moderate distress. Eyes: Pupils equal, round and reactive to light. EOMI, sclera nonicteric ENT: Pharynx normal. Oral mucosa dry, tongue midline, nares patent, bilateral tympanic membranes intact Neck: Normal inspection. Neck supple. No lymphadenopathy, negative Kernig's CVS: Tachycardic heart rate and rhythm. Pulses normal. Equal to all extremities Respiratory: No respiratory distress. Lung sounds clear to auscultation all lobes. No chest wall tenderness palpation Abdomen: Soft and diffusely tender, no rigidity Skin: Skin warm and dry. Normal skin color. Normal skin turgor. Extremities: No lower extremity edema moves all extremities against resistance Neuro: No motor deficit. No sensory deficit. Cranial nerves 2-12 intact, gait well balanced well coordinated Course Course Course Narrative: 40-year-old female with a past medical history of hypothyroidism, pyelonephritis, marijuana and opioid usage presenting to the ED with complaints of nausea, vomiting and diffuse abdominal pain. This is her 3rd visit for this illness, will order CBC, Chem 7, urinalysis give Toradol, saline 1 L, and repeat COVID. At 5:32 p.m. patient complains of increased nausea, order for Phenergan and Benadryl IV. And a 2nd L of fluid. Patient re-evaluated at 8:25 p.m., noted to have UTI on urinalysis, plan is for IV ceftriaxone, Pyridium, patient complains of 10/10 pain. Will give oxycodone. Patient states at 8:36 p.m. she continues to report abdominal pain, order for Maalox and lidocaine. 10:46 p.m. discussion with hospitalist regarding intractable nausea, vomiting and abdominal pain. Patient will be admitted for observation status. At 11:39 p.m. patient continues to complain of 10/10 pain order for Dilaudid as she has a slightly prolonged QT interval. MDM - Abdominal Pain Differential Diagnosis Differential diagnosis: Likely abdominal pain, acute appendicitis, bowel perforation, calculus of kidney, constipation, diverticulitis, endometriosis, gastroenteritis, ovarian cyst, pancreatitis and small bowel obstruction Medical Records Attestation: I reviewed the patient's medical records. Lab Data Attestation: I reviewed the patient's lab results. Result diagrams: 01/01/21 18:51 01/01/21 18:51 Labs: Lab Results 01/01/21 01/01/21 01/01/21 Range/Units 18:51 18:51 18:51 WBC 9.4 (4.8-10.8) X10*3/uL RBC 4.36 (4.20-5.50) X10*6/uL Hgb 10.8 L (12.0-16.0) g/dl Hct 35.3 L (37-47) % MCV 81.0 (80-98) fL MCH 24.8 L (27.0-33.0) pg MCHC 30.6 L (31.0-35.0) g/dl RDW 15.4 (11.0-16.0) % Plt Count 188 (160-400) X10*3/uL MPV 12.0 (9.4-12.3) fL Immature Gran % (Auto) Cancelled Neut % (Auto) Cancelled Lymph % (Auto) Cancelled [place] % (Auto) Cancelled Eos % (Auto) Cancelled Baso % (Auto) Cancelled Lymph # (Auto) Cancelled [place] # (Auto) Cancelled Eos # (Auto) Cancelled Baso # (Auto) Cancelled Abs Immat Gran (auto) Cancelled Absolute Neuts (auto) Cancelled Absolute Nucleated RBC 0.000 (0.0-0.012) X10*3/uL Nucleated RBC % (auto) 0.0 (0.0-0.2) /100WBC Neutrophils % (Manual) 84 H (45-73) % Lymphocytes % (Manual) 14 L (20-40) % Monocytes % (Manual) 2 (2-11) % Abs Neuts (Manual) 7.6 (2.2-7.9) X10*3/uL Lymphocytes # (Manual) 1.3 (0.6-4.8) X10*3/uL Monocytes # (Manual) 0.2 (0.0-1.2) X10*3/uL Platelet Estimate NORMAL (NORMAL) Large Platelets PRESENT Plt Morphology Comment NOTED RBC Morphology NORMAL Sodium 141 (135-145) mmol/L Potassium 3.3 (3.3-5.1) mmol/L Chloride 106 (96-108) mmol/L Carbon Dioxide 23 (22-29) mmol/L Anion Gap 15 (12-20) BUN 12 (9-16) mg/dL Creatinine 0.76 (0.5-1.4) mg/dL Estim Creat Clear Calc 83.6 Estimated GFR > 60 Random Glucose 95 (60-115) mg/dL Lactic Acid (0.5-2.0) mmol/L Calcium 8.7 D (8.4-10.2) mg/dL Total Bilirubin 0.8 (0.0-1.0) mg/dL Direct Bilirubin 0.3 (0.0-0.5) mg/dL AST 23 (5-31) U/L ALT 17 (0-31) U/L Alkaline Phosphatase 52 (39-117) U/L Total Protein 8.2 H (6.5-8.0) g/dL Albumin 4.5 (3.5-5.0) g/dL Lipase 40 (8-78) U/L Urine Color Urine Appearance Urine pH (5.0-8.0) Ur Specific [place] (1.005-1.025) Urine Protein (NEG-TRACE) MG/DL Urine Glucose (UA) (NEG) MG/DL Urine Ketones (NEG) MG/DL Urine Blood (NEG) Urine Nitrite (NEG) Ur Leukocyte Esterase (NEG) Urine RBC (0) /HPF Urine WBC (0-4) /HPF Ur Squamous Epith Cells /LPF Urine Bacteria /LPF Urine Mucus /LPF Urine Test (NEGATIVE) Coronavirus (PCR) (Negative) Influenza Type A (PCR) (Negative) Influenza Type B (PCR) (Negative) RSV RNA Qual (PCR) (Negative) 01/01/21 01/01/21 01/01/21 Range/Units 19:28 19:28 19:28 WBC (4.8-10.8) X10*3/uL RBC (4.20-5.50) X10*6/uL Hgb (12.0-16.0) g/dl Hct (37-47) % MCV (80-98) fL MCH (27.0-33.0) pg MCHC (31.0-35.0) g/dl RDW (11.0-16.0) % Plt Count (160-400) X10*3/uL MPV (9.4-12.3) fL Immature Gran % (Auto) Neut % (Auto) Lymph % (Auto) [place] % (Auto) Eos % (Auto) Baso % (Auto) Lymph # (Auto) [place] # (Auto) Eos # (Auto) Baso # (Auto) Abs Immat Gran (auto) Absolute Neuts (auto) Absolute Nucleated RBC (0.0-0.012) X10*3/uL Nucleated RBC % (auto) (0.0-0.2) /100WBC Neutrophils % (Manual) (45-73) % Lymphocytes % (Manual) (20-40) % Monocytes % (Manual) (2-11) % Abs Neuts (Manual) (2.2-7.9) X10*3/uL Lymphocytes # (Manual) (0.6-4.8) X10*3/uL Monocytes # (Manual) (0.0-1.2) X10*3/uL Platelet Estimate (NORMAL) Large Platelets Plt Morphology Comment RBC Morphology Sodium (135-145) mmol/L Potassium (3.3-5.1) mmol/L Chloride (96-108) mmol/L Carbon Dioxide (22-29) mmol/L Anion Gap (12-20) BUN (9-16) mg/dL Creatinine (0.5-1.4) mg/dL Estim Creat Clear Calc Estimated GFR Random Glucose (60-115) mg/dL Lactic Acid (0.5-2.0) mmol/L Calcium (8.4-10.2) mg/dL Total Bilirubin (0.0-1.0) mg/dL Direct Bilirubin (0.0-0.5) mg/dL AST (5-31) U/L ALT (0-31) U/L Alkaline Phosphatase (39-117) U/L Total Protein (6.5-8.0) g/dL Albumin (3.5-5.0) g/dL Lipase (8-78) U/L Urine Color YELLOW Urine Appearance HAZY Urine pH 6.0 (5.0-8.0) Ur Specific [place] 1.025 (1.005-1.025) Urine Protein NEG (NEG-TRACE) MG/DL Urine Glucose (UA) NEG (NEG) MG/DL Urine Ketones 40 (NEG) MG/DL Urine Blood 1+ H (NEG) Urine Nitrite POS H (NEG) Ur Leukocyte Esterase 2+ H (NEG) Urine RBC 1-4 (0) /HPF Urine WBC 5-9 H (0-4) /HPF Ur Squamous Epith Cells 2+ /LPF Urine Bacteria 3+ /LPF Urine Mucus 2+ /LPF Urine Test NEGATIVE (NEGATIVE) Coronavirus (PCR) NEGATIVE (Negative) Influenza Type A (PCR) NEGATIVE (Negative) Influenza Type B (PCR) NEGATIVE (Negative) RSV RNA Qual (PCR) NEGATIVE (Negative) 02/21/21 Range/Units 21:05 WBC (4.8-10.8) X10*3/uL RBC (4.20-5.50) X10*6/uL Hgb (12.0-16.0) g/dl Hct (37-47) % MCV (80-98) fL MCH (27.0-33.0) pg MCHC (31.0-35.0) g/dl RDW (11.0-16.0) % Plt Count (160-400) X10*3/uL MPV (9.4-12.3) fL Immature Gran % (Auto) Neut % (Auto) Lymph % (Auto) [place] % (Auto) Eos % (Auto) Baso % (Auto) Lymph # (Auto) [place] # (Auto) Eos # (Auto) Baso # (Auto) Abs Immat Gran (auto) Absolute Neuts (auto) Absolute Nucleated RBC (0.0-0.012) X10*3/uL Nucleated RBC % (auto) (0.0-0.2) /100WBC Neutrophils % (Manual) (45-73) % Lymphocytes % (Manual) (20-40) % Monocytes % (Manual) (2-11) % Abs Neuts (Manual) (2.2-7.9) X10*3/uL Lymphocytes # (Manual) (0.6-4.8) X10*3/uL Monocytes # (Manual) (0.0-1.2) X10*3/uL Platelet Estimate (NORMAL) Large Platelets Plt Morphology Comment RBC Morphology Sodium (135-145) mmol/L Potassium (3.3-5.1) mmol/L Chloride (96-108) mmol/L Carbon Dioxide (22-29) mmol/L Anion Gap (12-20) BUN (9-16) mg/dL Creatinine (0.5-1.4) mg/dL Estim Creat Clear Calc Estimated GFR Random Glucose (60-115) mg/dL Lactic Acid 0.8 (0.5-2.0) mmol/L Calcium (8.4-10.2) mg/dL Total Bilirubin (0.0-1.0) mg/dL Direct Bilirubin (0.0-0.5) mg/dL AST (5-31) U/L ALT (0-31) U/L Alkaline Phosphatase (39-117) U/L Total Protein (6.5-8.0) g/dL Albumin (3.5-5.0) g/dL Lipase (8-78) U/L Urine Color Urine Appearance Urine pH (5.0-8.0) Ur Specific [place] (1.005-1.025) Urine Protein (NEG-TRACE) MG/DL Urine Glucose (UA) (NEG) MG/DL Urine Ketones (NEG) MG/DL Urine Blood (NEG) Urine Nitrite (NEG) Ur Leukocyte Esterase (NEG) Urine RBC (0) /HPF Urine WBC (0-4) /HPF Ur Squamous Epith Cells /LPF Urine Bacteria /LPF Urine Mucus /LPF Urine Test (NEGATIVE) Coronavirus (PCR) (Negative) Influenza Type A (PCR) (Negative) Influenza Type B (PCR) (Negative) RSV RNA Qual (PCR) (Negative) Imaging Data CT scan - abdomen: Attestation: I personally reviewed and interpreted this imaging study as follows: Radiologist's impression: EXAMINATION: CT ABDOMEN AND PELVIS WITH CONTRAST CLINICAL INFORMATION: Abdominal pain COMPARISON: 12/28/2020 TECHNIQUE: Multidetector volumetric images were obtained from the superior aspect of the liver through the pubic symphysis following administration 85 mL of Omnipaque 350 intravenous contrast. Sagittal and coronal reformatted images were obtained on the technologist's workstation. Oral contrast: No This CT examination was performed using dose optimization techniques as appropriate, variously including the following: *Automated exposure control *Adjustment of mA and/or kV according to patient size (this includes techniques or standardized protocols for targeted exams where dose is matched to indication/reason for exam; i.e. extremities or head) *Use of iterative reconstruction technique DLP: 526 mGy-cm FINDINGS: LUNG BASES: The visualized lung bases are unremarkable. LIVER, GALLBLADDER, AND BILIARY TREE: The liver is normal in size, shape, and attenuation. No focal hepatic lesion or biliary ductal dilatation is present. The gallbladder is unremarkable with no evidence of radiopaque gallstones, gallbladder wall thickening, or obvious pericholecystic inflammatory changes. PANCREAS: Unremarkable. SPLEEN: Unremarkable. ADRENAL GLANDS: Unremarkable. KIDNEYS AND URETERS: The kidneys are normal in size, shape, and attenuation. No hydronephrosis, hydroureter, or calculi seen. No perinephric stranding. BLADDER: Normally distended without wall thickening. There is a crescentic area of fluid seen inferior to the bladder, along the tract of the urethra. This could represent a urethral diverticulum or vaginal inclusion cyst. This is unchanged from the recent prior. GASTROINTESTINAL TRACT: The stomach is unremarkable. Normal caliber small bowel. There is no obstruction. No colonic wall thickening or inflammatory change. Normal appendix. No free air. No free fluid. ABDOMINAL WALL: No significant hernia is appreciated. LYMPH NODES: Normal. VASCULAR: Unremarkable. PELVIC VISCERA: Anteverted uterus. Likely nabothian cysts. Endometrial thickness of 0.8 cm. There is no adnexal mass. OSSEOUS STRUCTURES: No acute or suspicious osseous abnormality. CT/CT abdomen pelvis w con IMPRESSION: No acute findings in the abdomen or pelvis. No inflammatory changes. Crescentic fluid-filled structure along the course of the urethra, suspicious for a urethral diverticulum or vaginal inclusion cyst. This is unchanged over multiple prior studies. Discharge Plan Discharge Clinical Impression: Cyclical vomiting UTI (urinary tract infection) Qualifiers: Urinary tract infection type: acute cystitis Hematuria presence: with hematuria Qualified Code(s): N30.01 - Acute cystitis with hematuria Patient Disposition: Admitted as Observation [facility] Past Medical History Attestation statement: The following information was validated with the patient. Medical History Abscess Cyclical vomiting Surgical History Tubal ligation status Social History Social History Alcohol intake: never Smoking Status: Current every day smoker Substance Use Type: Marijuana Advance Directives: Yes Advance Directives Information Provided: No Advance Directives on File: No
[2021-01-01] MEDS: diphenhydrAMINE HCL 50 MG/ML VIAL 25 MG IVPUSH (18:39)
[2021-01-01] MEDS: 0.9 % Sodium Chloride 1,000 ML 999 ML IVCONT (18:40)
[2021-01-01 19:01] LABS: Hematocrit 35.3 % (37-47); Hemoglobin 10.8 g/dl (12.0-16.0); Mean Corpuscular HGB Conc 30.6 g/dl (31.0-35.0); Mean Corpuscular Hemoglobin 24.8 pg (27.0-33.0); Red Blood Count 4.36 X10*6/uL (4.20-5.50); Red Cell Distribution Width 15.4 % (11.0-16.0)
[2021-01-01 19:03] LABS: WBC ABN SCTR FOR CBC 1
[2021-01-01 19:22] LABS: Platelet Count 188 X10*3/uL (160-400); White Blood Count 9.4 X10*3/uL (4.8-10.8)
[2021-01-01 19:24] LABS: Lymphocytes Absolute Manual 1.3 X10*3/uL (0.6-4.8); Lymphocytes Percent Manual 14 % (20-40); Monocytes Absolute Manual 0.2 X10*3/uL (0.0-1.2); Monocytes Percent Manual 2 % (2-11); Neutrophils Percent Manual 84 % (45-73); Platelet Estimate NORMAL (NORMAL); RBC Morphology NORMAL
[2021-01-01 19:25] LABS: Large Platelet PRESENT; Neutrophils Absolute Manual 7.6 X10*3/uL (2.2-7.9); Platelet Morphology Comment NOTED
[2021-01-01 19:27] LABS: Lipase 40 U/L (8-78)
[2021-01-01 19:29] LABS: Alanine Aminotransferase 17 U/L (0-31); Albumin Level 4.5 g/dL (3.5-5.0); Alkaline Phosphatase 52 U/L (39-117); Anion Gap 15 (12-20); Aspartate Amino Transferase 23 U/L (5-31); Bilirubin Direct 0.3 mg/dL (0.0-0.5); Bilirubin Total 0.8 mg/dL (0.0-1.0); Blood Urea Nitrogen 12 mg/dL (9-16); Calcium 8.7 mg/dL (8.4-10.2); Carbon Dioxide 23 mmol/L (22-29); Chloride 106 mmol/L (96-108); Creatinine Clr Calc Pharmacy 83.6; Estimated Glomerular Filt Rate > 60; Glucose Random 95 mg/dL (60-115); Potassium 3.3 mmol/L (3.3-5.1); Sodium 141 mmol/L (135-145); Total Protein 8.2 g/dL (6.5-8.0)
[2021-01-01 19:30] VITALS: BP 161/84; PULSE 79; RESP 16; TEMP 36.9; O2SAT 99
[2021-01-01 19:42] LABS: Appearance Urine HAZY; Color Urine YELLOW; Glucose Urine UA NEG (NEG); Leukocyte Esterase Urine 2+ (NEG); Nitrite Urine POS (NEG); Specific Gravity - Urine 1.025 (1.005-1.025); UACC Culture Trigger YES; Urine Blood 1+ (NEG); Urine Ketones 40 MG/DL (NEG); Urine Protein NEG (NEG-TRACE)
[2021-01-01 19:44] LABS: UPreg QC Valid YES; Urine Pregnancy NEGATIVE (NEGATIVE)
[2021-01-01 19:48] LABS: Bacteria Urine 3+ /LPF; Mucus Urine 2+ /LPF; Squamous Epithelial Cell Urine 2+ /LPF
[2021-01-01 20:29] LABS: Influenza A PCR NEGATIVE (Negative); Influenza B PCR NEGATIVE (Negative); Resp Syncy Virus RNA Qual PCR NEGATIVE (Negative); SARS COV2 PCR INHOUSE NEGATIVE (Negative)
[2021-01-01 20:55] VITALS: BP 146/94; PULSE 78; RESP 18; TEMP 37.5; O2SAT 97
[2021-01-01] MEDS: oxyCODONE HCl Immed Release 5 MG TABLET PO (20:59)
[2021-01-01] MEDS: Lidocaine HCl Viscous 2 % 15 ML SOLUTION MUCOUS MEM (20:59)
[2021-01-01] MEDS: Magnesium Hydrox/Alum Hydrox 30 ML ORAL.SUSP PO (20:59)
[2021-01-01] MEDS: Phenazopyridine HCL 200 MG TABLET PO (21:00)
--- NOTE | 2021-01-01 21:04 | PC.NURSE ---
Pt resting on stretcher in NAD, breathing with ease on RA. Pt aaox4, reports persistent abd pain 10/ as documented. Pt describes pain as generalized in abd but with most severe pain in epigastrium. Pt medicated per MAR, lactic and cultures drawn prior to admin of IV rocephin. Pt stretcher low locked, rails raised, call de luna within reach.
[2021-01-01] MEDS: cefTRIAXone sodium 1 GM in 0.9 % Sodium Chloride 50 ML IV (21:07)
[2021-01-01 21:31] LABS: Lactic Acid 0.8 mmol/L (0.5-2.0)
[2021-01-01 21:50] VITALS: BP 152/104; PULSE 74; RESP 16; O2SAT 97
[2021-01-01 23:27] VITALS: BP 162/79; PULSE 74; RESP 16; O2SAT 96
[2021-01-01] MEDS: diazePAM 5 MG TABLET PO (23:28)
[2021-01-01] MEDS: iohexoL 350 MG/ML 100 ML INFUS..BTL 85 ML IV (23:45)
[2021-01-02] VITALS (14 sets, daily range): BP systolic 125–165; BP diastolic 76–101; PULSE 75–86; RESP 16–20; TEMP 36.5–37.1; O2SAT 97–100
[2021-01-02] MEDS: 0.9 % Sodium Chloride 1,000 ML 999 ML IVCONT (00:12)
[2021-01-02] MEDS: HYDROmorphone HCl 1 MG/ML SYRINGE IVPUSH (00:12)
--- NOTE | 2021-01-02 00:32 | P.HPHOSP_ITS ---
History of Present Illness Date of Service: 01/02/21 Chief Complaint: Nausea/vomiting 43-year-old female with a past medical history of substance abuse, cannabis abuse, history of cyclic vomiting syndrome, hypothyroidism, history of UTI/pyelonephritis, to the hospital with a chief complaint of nausea and vomiting. Patient mentioned that her current symptoms are similar to the prior symptoms. Also complains of abdominal discomfort. Denies any fever chills cough. Denies any recent travel or sick contacts. Denies any chest pain palpitations. Mentioned that she has been having reduced oral intake. Review of all other systems is negative except mentioned above ER course: Per ER team patient noted to be in discomfort secondary to nausea and vomiting given IV Zofran. Patient's QTC was 499. Subsequently given Reglan. Urinalysis abnormal consistent with UTI-given ceftriaxone. Also her repeat CT abdomen pelvis done which showed no acute intra-abdominal pathology except for some chronic findings. Admitted to the hospital for further management PMFSH Medical History Abscess Cyclical vomiting Surgical History Tubal ligation status Social History Alcohol intake: never Smoking Status: Current every day smoker Substance Use Type: Marijuana Advance Directives: Yes Advance Directives Information Provided: No Advance Directives on File: No Meds Allergies Allergy/AdvReac Type Severity Reaction Status Date / Time amoxicillin [Amoxicillin] Allergy Intermediate HIVES Verified 12/28/20 12:27 tramadol AdvReac Intermediate SOB Verified 12/28/20 12:27 Active Medications: Current Medications Generic Name Dose Route Start Last Admin Trade Name Freq PRN Reason Stop Dose Admin Acetaminophen 650 mg 01/02/21 00:27 Acetaminophen 325 Mg Tablet PO Q6H PRN Pain, Mild (Pain Scale 1-3) Sodium Chloride 1,000 mls @ 999 mls/hr 01/01/21 23:45 01/02/21 00:12 Ns IVCONT 01/02/21 00:45 999 mls/hr .Q1H1M VICTOR M Administration Dextrose/Sodium Chloride 1,000 mls @ 100 mls/hr 01/02/21 00:30 D51/2ns IVCONT .Q10H VICTOR M Ceftriaxone Sodium 1 gm/ 50 mls @ 100 mls/hr 01/02/21 00:30 Sodium Chloride IV Q24H VICTOR M Lorazepam 0.5 mg 01/02/21 00:29 Lorazepam 2 Mg/Ml Vial IVPUSH Q6H PRN anxiety/restlessness Metoclopramide HCl 10 mg 01/02/21 00:29 Metoclopramide Hcl 10 Mg/2 Ml Vial IVPUSH Q6H PRN Nausea and Vomiting Sodium Chloride 3 ml 01/02/21 08:00 0.9 % Sodium Chloride Flush 3 Ml Syringe IVFLUSH QSHIFT [facility] Home Medications Medication Instructions Recorded Confirmed Last Taken Type No Known Home Meds 01/02/21 01/02/21 Unknown History Physical Exam Vital Signs and Narrative: Vital Signs: Last Vital Signs Temp 99.5 F 01/01/21 20:55 Pulse 75 01/02/21 00:10 Resp 16 01/02/21 00:12 BP 125/77 01/02/21 00:10 Pulse Ox 97 01/02/21 00:10 Body Mass Index 27.3 Gen: Appears be in no acute distress HEENT: NCAT, Moist mucosa. Pulmonary: Vesicular breath sounds, fair air entry CVS: Normal S1-S2 Abdomen: BS+, Soft, mildly tender diffusely, no guarding no rigidity Extremities: Warm well perfused Neuro: Alert and awake. Results Labs CBC and Chem 7: 01/01/21 18:51 01/01/21 18:51 Labs: Laboratory Results - last 24 hr 01/01/21 01/01/21 01/01/21 18:51 18:51 18:51 MCV 81.0 MCH 24.8 L MCHC 30.6 L RDW 15.4 Plt Count 188 MPV 12.0 Immature Gran % (Auto) Cancelled Neut % (Auto) Cancelled Lymph % (Auto) Cancelled [place] % (Auto) Cancelled Eos % (Auto) Cancelled Baso % (Auto) Cancelled Lymph # (Auto) Cancelled [place] # (Auto) Cancelled Eos # (Auto) Cancelled Baso # (Auto) Cancelled Abs Immat Gran (auto) Cancelled Absolute Neuts (auto) Cancelled Absolute Nucleated RBC 0.000 Nucleated RBC % (auto) 0.0 Neutrophils % (Manual) 84 H Lymphocytes % (Manual) 14 L Monocytes % (Manual) 2 Abs Neuts (Manual) 7.6 Lymphocytes # (Manual) 1.3 Monocytes # (Manual) 0.2 Platelet Estimate NORMAL Large Platelets PRESENT Plt Morphology Comment NOTED RBC Morphology NORMAL Anion Gap 15 Estim Creat Clear Calc 83.6 Estimated GFR > 60 Random Glucose 95 Lactic Acid Calcium 8.7 D Total Bilirubin 0.8 Direct Bilirubin 0.3 AST 23 ALT 17 Alkaline Phosphatase 52 Total Protein 8.2 H Albumin 4.5 Lipase 40 Urine Color Urine Appearance Urine pH Ur Specific [employer] Urine Protein Urine Glucose (UA) Urine Ketones Urine Blood Urine Nitrite Ur Leukocyte Esterase Urine RBC Urine WBC Ur Squamous Epith Cells Urine Bacteria Urine Mucus Urine Test Coronavirus (PCR) Influenza Type A (PCR) Influenza Type B (PCR) RSV RNA Qual (PCR) 01/01/21 01/01/21 01/01/21 19:28 19:28 19:28 MCV MCH MCHC RDW Plt Count MPV Immature Gran % (Auto) Neut % (Auto) Lymph % (Auto) [place] % (Auto) Eos % (Auto) Baso % (Auto) Lymph # (Auto) [place] # (Auto) Eos # (Auto) Baso # (Auto) Abs Immat Gran (auto) Absolute Neuts (auto) Absolute Nucleated RBC Nucleated RBC % (auto) Neutrophils % (Manual) Lymphocytes % (Manual) Monocytes % (Manual) Abs Neuts (Manual) Lymphocytes # (Manual) Monocytes # (Manual) Platelet Estimate Large Platelets Plt Morphology Comment RBC Morphology Anion Gap Estim Creat Clear Calc Estimated GFR Random Glucose Lactic Acid Calcium Total Bilirubin Direct Bilirubin AST ALT Alkaline Phosphatase Total Protein Albumin Lipase Urine Color YELLOW Urine Appearance HAZY Urine pH 6.0 Ur Specific [employer] 1.025 Urine Protein NEG Urine Glucose (UA) NEG Urine Ketones 40 Urine Blood 1+ H Urine Nitrite POS H Ur Leukocyte Esterase 2+ H Urine RBC 1-4 Urine WBC 5-9 H Ur Squamous Epith Cells 2+ Urine Bacteria 3+ Urine Mucus 2+ Urine Test NEGATIVE Coronavirus (PCR) NEGATIVE Influenza Type A (PCR) NEGATIVE Influenza Type B (PCR) NEGATIVE RSV RNA Qual (PCR) NEGATIVE 01/01/21 21:05 MCV MCH MCHC RDW Plt Count MPV Immature Gran % (Auto) Neut % (Auto) Lymph % (Auto) [place] % (Auto) Eos % (Auto) Baso % (Auto) Lymph # (Auto) [place] # (Auto) Eos # (Auto) Baso # (Auto) Abs Immat Gran (auto) Absolute Neuts (auto) Absolute Nucleated RBC Nucleated RBC % (auto) Neutrophils % (Manual) Lymphocytes % (Manual) Monocytes % (Manual) Abs Neuts (Manual) Lymphocytes # (Manual) Monocytes # (Manual) Platelet Estimate Large Platelets Plt Morphology Comment RBC Morphology Anion Gap Estim Creat Clear Calc Estimated GFR Random Glucose Lactic Acid 0.8 Calcium Total Bilirubin Direct Bilirubin AST ALT Alkaline Phosphatase Total Protein Albumin Lipase Urine Color Urine Appearance Urine pH Ur Specific [employer] Urine Protein Urine Glucose (UA) Urine Ketones Urine Blood Urine Nitrite Ur Leukocyte Esterase Urine RBC Urine WBC Ur Squamous Epith Cells Urine Bacteria Urine Mucus Urine Test Coronavirus (PCR) Influenza Type A (PCR) Influenza Type B (PCR) RSV RNA Qual (PCR) Imaging Radiologist's Impressions: Impressions Abdomen/Pelvis CT 01/01/21 22:29 IMPRESSION: No acute findings in the abdomen or pelvis. No inflammatory changes. Crescentic fluid-filled structure along the course of the urethra, suspicious for a urethral diverticulum or vaginal inclusion cyst. This is unchanged over multiple prior studies. Assessment and Plan (1) Cyclical vomiting: Status: Acute 40-year-old female with a past medical history of hypothyroidism, UTI/pyelonephritis, cyclic vomiting syndrome, substance abuse, cannabis abuse, hypothyroidism presented to the hospital with a chief complaint of nausea vomiting and abdominal discomfort. Noted to be having recurrent episodes of cyclic vomiting syndrome. Also noted to have UTI. Admitted to the hospital for further management. Cyclic vomiting syndrome: Patient has decreased oral intake. IV fluids. Supportive care with Reglan p.r.n. Pain control Advance diet as tolerated UTI: Continue ceftriaxone, Follow-up cultures. DVT prophylaxis: SCD boots Code status: Full code
[2021-01-02] MEDS: Dextrose 5 % and 0.45 % NaCl 1,000 ML 100 ML IVCONT ×2 (02:33→11:03)
--- NOTE | 2021-01-02 03:39 | PC.NURSE ---
pt has been ambulatory to bathroom every 2 hours, with steady gait. able to tolerate small sips of clary ludivina, with no vomiting for several hours. pt not interested in food, causes nausea. pt reports any increase in pain causing nausea as well.
[2021-01-02] MEDS: HYDROmorphone HCl 0.5 MG/0.5 ML SYRINGE IVPUSH (03:57)
[2021-01-02 06:49] LABS: MANUAL DIFF FLAG NO
--- NOTE | 2021-01-02 07:02 | PC.NURSE ---
received report carloz nix
[2021-01-02 07:07] LABS: Basophils Percent Auto 0.3 % (0-2); Eosinophils Percent Auto 0.4 % (0-4); Hematocrit 32.1 % (37-47); Hemoglobin 9.9 g/dl (12.0-16.0); Imm Gran Abs Auto 0.02 X10*3/uL (0.00-0.03); Imm Gran Pct Auto 0.3 % (0.0-0.4); Lymphocytes Absolute Auto 2.6 X10*3/uL (1.2-4.9); Lymphocytes Percent Auto 36.2 % (20-40); Mean Corpuscular HGB Conc 30.8 g/dl (31.0-35.0); Mean Corpuscular Hemoglobin 25.1 pg (27.0-33.0); Mean Corpuscular Volume 81.5 fL (80-98); Mean Platelet Volume 12.9 fL (9.4-12.3); Monocytes Absolute Auto 0.6 X10*3/uL (0.1-1.2); Monocytes Percent Auto 8.3 % (2-11); Neutrophils Absolute Auto 3.9 X10*3/uL (2.0-8.3); Neutrophils Percent Auto 54.5 % (45-73); Platelet Count 163 X10*3/uL (160-400); Red Blood Count 3.94 X10*6/uL (4.20-5.50); Red Cell Distribution Width 15.7 % (11.0-16.0); White Blood Count 7.2 X10*3/uL (4.8-10.8)
[2021-01-02 07:58] LABS: Anion Gap 9 (12-20); Blood Urea Nitrogen 8 mg/dL (9-16); Carbon Dioxide 28 mmol/L (22-29); Chloride 103 mmol/L (96-108); Creatinine Clr Calc Pharmacy 87.1; Estimated Glomerular Filt Rate > 60; Glucose Random 90 mg/dL (60-115); Potassium 3.2 mmol/L (3.3-5.1); Sodium 137 mmol/L (135-145)
--- NOTE | 2021-01-02 08:30 | PC.NURSE ---
pt sitting up in bed, alert and oriented, reports upper/mid abd pain 8/10 at this time, feels like its burning/aching, nausea starting to come back slightly due to the pain, no vomiting at this time hospitalist tigered for pain medication
[2021-01-02] MEDS: Morphine Sulfate 2 MG/ML CARTRIDGE 1 MG IVPUSH ×2 (08:56→15:11)
[2021-01-02] MEDS: Potassium Chloride ER 20 MEQ TAB.ER.PRT 40 MEQ PO (08:58)
[2021-01-02] MEDS: LORazepam 2 MG/ML VIAL 0.5 MG IVPUSH ×3 (08:58→22:05)
--- NOTE | 2021-01-02 10:45 | PC.NURSE ---
pt reports feeling much better after the pain medications pain at 01/18 [t is requesting to eat
[2021-01-02] MEDS: 0.9 % Sodium Chloride Flush 3 ML SYRINGE IVFLUSH ×2 (10:54→15:17)
--- NOTE | 2021-01-02 12:22 | PC.NURSE ---
epigastric pain remains undercontrol as does nausea. pt states the pain induces nausea. up to br to clean up. awaits bed on floor. skin pwd. moist mm. taking po clear liquids without diff.
--- NOTE | 2021-01-02 14:34 | PC.NURSE ---
tolerated po solids well. requesting pain medication but denies nausea at this time.
--- NOTE | 2021-01-02 15:13 | PC.NURSE ---
medicated for increasing epigastric pain. nausea remains under controll. takin po liguids. up to br frequently. steady on feet. skin pwd. moist mm. no abd tenderness.
--- NOTE | 2021-01-02 15:40 | HO.PM.IMPN ---
Subjective Subjective Date of Service: 01/02/21 Interval History: Patient seen and examined at bedside patient was reporting abdominal pain and nausea Review of Systems Constitutional: No Weight loss, No Fever, No Chills, No Night Sweats, No Fatigue, No Malaise ENT/Mouth: No Hearing loss, No Ear Pain, No Nasal Congestion, No Sinus Pain, No Hoarseness, No sore throat, No Rhinorrhea, No Swallowing Difficulty Eyes: No Eye Pain, No Swelling, No Redness, No Foreign Body, No Discharge, No Vision Changes Cardiovascular: No Chest Pain, No SOB, No Dyspnea on Exertion, No Orthopnea, No Edema, No Palpitations Respiratory: No Cough, No Sputum, No Wheezing, No Smoke Exposure, No Dyspnea Gastrointestinal: Positive Nausea, Positive Vomiting, no Diarrhea, positive abdominal Pain, No Hematochezia, No Melena Genitourinary: no irregular bleeding, No Dysuria, No Urinary Frequency, No Hematuria, No Urinary Incontinence, No Urgency, No Flank Pain, No Urinary Flow Changes, No Hesitancy Musculoskeletal: No joint pain, No Myalgias, No Joint Swelling Skin: No Skin Lesions, No rash Neuro: No Weakness, No Numbness, No Paresthesias, No Loss of Consciousness, No Dizziness, No Headache Psych: No Anxiety/Panic, No Depression, No SI/HI/AH/VH, No Social Issues Heme/Lymph: No Bruising, No Bleeding,No Lymphadenopathy Endocrine: No Polyuria, No Polydipsia, No Temperature Intolerance Physical Exam Vital Signs: Vital Signs: Last Vital Signs Temp 98.7 F 01/02/21 12:22 Pulse 85 01/02/21 14:34 Resp 18 01/02/21 14:34 BP 134/88 01/02/21 14:34 Pulse Ox 100 01/02/21 14:34 Body Mass Index 27.3 Const: Other: Gen: Appears be in no acute distress HEENT: NCAT, Moist mucosa. Pulmonary: Vesicular breath sounds, fair air entry CVS: Normal S1-S2 Abdomen: BS+, Soft, mildly tender diffusely, no guarding no rigidity Extremities: Warm well perfused Neuro: Alert and awake. Objective Data Current Medications Generic Name Dose Route Start Last Admin Trade Name Freq PRN Reason Stop Dose Admin Acetaminophen 650 mg 01/02/21 00:27 Acetaminophen 325 Mg Tablet PO Q6H PRN Pain, Mild (Pain Scale 1-3) Dextrose/Sodium Chloride 1,000 mls @ 100 mls/hr 01/02/21 00:30 01/02/21 11:03 D51/2ns IVCONT 100 mls/hr .Q10H VICTOR M Administration Ceftriaxone Sodium 1 gm/ 50 mls @ 100 mls/hr 01/02/21 21:00 Sodium Chloride IV Q24H VICTOR M Lorazepam 0.5 mg 01/02/21 00:29 01/02/21 15:11 Lorazepam 2 Mg/Ml Vial IVPUSH 0.5 mg Q6H PRN Administration anxiety/restlessness Metoclopramide HCl 10 mg 01/02/21 00:29 Metoclopramide Hcl 10 Mg/2 Ml Vial IVPUSH Q6H PRN Nausea and Vomiting Morphine Sulfate 1 mg 01/02/21 08:39 01/02/21 15:11 Morphine Sulfate 2 Mg/Ml Cartridge IVPUSH 1 mg Q6H PRN Administration Pain, Moderate (Pain Scale 4-6 Sodium Chloride 3 ml 01/02/21 08:00 01/02/21 15:17 0.9 % Sodium Chloride Flush 3 Ml Syringe IVFLUSH 3 ml QSHIFT VICTOR M Administration Labs CBC & Chem 7: 01/02/21 06:37 01/02/21 06:37 Microbiology Microbiology Results: Microbiology 01/01/21 19:44 Urine clean catch - Clean Catch Midstream Urine Culture - Preliminary Gram negative justin Assessment and Plan (1) Cyclical vomiting: Status: Acute Assessment and Plan: 40-year-old female with a past medical history of hypothyroidism, UTI/pyelonephritis, cyclic vomiting syndrome, substance abuse, cannabis abuse, hypothyroidism presented to the hospital with a chief complaint of nausea vomiting and abdominal discomfort admitted for cyclic vomiting syndrome and UTI Cyclic vomiting syndrome likely secondary to marijuana use Patient has decreased oral intake. continue IV fluids. continue Supportive care with Reglan p.r.n. Advance diet as tolerated UTI: Continue ceftriaxone, Follow-up cultures. DVT prophylaxis: SCD boots Code status: Full code
--- NOTE | 2021-01-02 20:14 | MHC.CM.PN ---
CM met with pt. HCP/daughter Lisa Cartagena ([phone]). 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 D/C plan is home without services. Daughter to provide transportation home. Pt states she will need a note for work and her Covid results at discharge. Enc pt to tell her nurse prior to discharge. CM to follow for d/c needs.
[2021-01-02] MEDS: Morphine Sulfate 4 MG/ML CARTRIDGE IVPUSH (20:46)
[2021-01-02] MEDS: cefTRIAXone sodium 1 GM in 0.9 % Sodium Chloride 50 ML IV (20:47)
--- NOTE | 2021-01-03 | PC.NURSE ---
Report received from Karen Martinez RN. Pt resting comfortably at this time, will continue to monitor.
[2021-01-03] MEDS: diphenhydrAMINE HCL 50 MG/ML VIAL 25 MG IVPUSH (00:10)
[2021-01-03 02:30] VITALS: RESP 18
[2021-01-03] MEDS: Morphine Sulfate 2 MG/ML CARTRIDGE 1 MG IVPUSH ×4 (02:30→20:22)
[2021-01-03] MEDS: Acetaminophen 325 MG TABLET 650 MG PO (02:30)
[2021-01-03] MEDS: 0.9 % Sodium Chloride Flush 3 ML SYRINGE IVFLUSH ×2 (02:30→08:29)
--- NOTE | 2021-01-03 02:31 | PC.NURSE ---
New 22g IV access established in left forearm. Previous 22g in outer left forearm infiltrated. 20g in right AC remains patient but positional. Fluids continue to infuse as ordered, with frequent beeping. Fluids connected to new 22g IV access, infusing much more smoothly than through the 20g IV access. Patient also medicated for 8/10 pain. Will continue to monitor.
[2021-01-03 03:30] VITALS: RESP 16
--- NOTE | 2021-01-03 04:28 | PC.NURSE ---
Preparing to transfer to admit to room 372-1. Awaiting call back to give RN to RN report.
[2021-01-03 06:38] VITALS: BP 150/99; PULSE 75; RESP 18; TEMP 36.6; O2SAT 99
[2021-01-03] MEDS: Dextrose 5 % and 0.45 % NaCl 1,000 ML 100 ML IVCONT ×2 (06:52→18:36)
[2021-01-03] MEDS: Metoclopramide HCl 10 MG/2 ML VIAL IVPUSH (08:34)
[2021-01-03] MEDS: LORazepam 2 MG/ML VIAL 0.5 MG IVPUSH ×3 (08:34→20:37)
[2021-01-03 09:46] LABS: Anion Gap 12 (12-20); Blood Urea Nitrogen 7 mg/dL (9-16); Calcium 8.2 mg/dL (8.4-10.2); Carbon Dioxide 27 mmol/L (22-29); Chloride 101 mmol/L (96-108); Creatinine Clr Calc Pharmacy 87.1; Estimated Glomerular Filt Rate > 60; Glucose Random 92 mg/dL (60-115); Potassium 3.3 mmol/L (3.3-5.1); Sodium 137 mmol/L (135-145)
[2021-01-03 12:00] VITALS: BP 140/89; PULSE 83; RESP 19; TEMP 36.7; O2SAT 97
--- NOTE | 2021-01-03 13:03 | HO.PM.IMPN ---
Subjective Subjective Date of Service: 01/03/21 Interval History: Patient seen and examined at bedside patient still reporting abdominal pain and nausea Review of Systems Constitutional: No Weight loss, No Fever, No Chills, No Night Sweats, No Fatigue, No Malaise ENT/Mouth: No Hearing loss, No Ear Pain, No Nasal Congestion, No Sinus Pain, No Hoarseness, No sore throat, No Rhinorrhea, No Swallowing Difficulty Eyes: No Eye Pain, No Swelling, No Redness, No Foreign Body, No Discharge, No Vision Changes Cardiovascular: No Chest Pain, No SOB, No Dyspnea on Exertion, No Orthopnea, No Edema, No Palpitations Respiratory: No Cough, No Sputum, No Wheezing, No Smoke Exposure, No Dyspnea Gastrointestinal: Positive Nausea, Positive Vomiting, no Diarrhea, positive abdominal Pain, No Hematochezia, No Melena Genitourinary: no irregular bleeding, No Dysuria, No Urinary Frequency, No Hematuria, No Urinary Incontinence, No Urgency, No Flank Pain, No Urinary Flow Changes, No Hesitancy Musculoskeletal: No joint pain, No Myalgias, No Joint Swelling Skin: No Skin Lesions, No rash Neuro: No Weakness, No Numbness, No Paresthesias, No Loss of Consciousness, No Dizziness, No Headache Psych: No Anxiety/Panic, No Depression, No SI/HI/AH/VH, No Social Issues Heme/Lymph: No Bruising, No Bleeding,No Lymphadenopathy Endocrine: No Polyuria, No Polydipsia, No Temperature Intolerance Physical Exam Vital Signs: Vital Signs: Last Vital Signs Temp 98.1 F 01/03/21 12:00 Pulse 83 01/03/21 12:00 Resp 19 01/03/21 12:00 BP 140/89 H 01/03/21 12:00 Pulse Ox 97 01/03/21 12:00 Body Mass Index 27.3 Cardio: Other: Gen: Appears be in no acute distress HEENT: NCAT, Moist mucosa. Pulmonary: Vesicular breath sounds, fair air entry CVS: Normal S1-S2 Abdomen: BS+, Soft, mildly tender diffusely, no guarding no rigidity Extremities: Warm well perfused Neuro: Alert and awake. Objective Data Current Medications Generic Name Dose Route Start Last Admin Trade Name Freq PRN Reason Stop Dose Admin Acetaminophen 650 mg 01/02/21 00:27 01/03/21 02:30 Acetaminophen 325 Mg Tablet PO 650 mg Q6H PRN Administration Pain, Mild (Pain Scale 1-3) Dextrose/Sodium Chloride 1,000 mls @ 100 mls/hr 01/02/21 00:30 01/03/21 06:52 D51/2ns IVCONT 100 mls/hr .Q10H VICTOR M Administration Ceftriaxone Sodium 1 gm/ 50 mls @ 100 mls/hr 01/02/21 21:00 01/02/21 21:35 Sodium Chloride IV Infused Q24H VICTOR M Infusion Lorazepam 0.5 mg 01/02/21 00:29 01/03/21 08:34 Lorazepam 2 Mg/Ml Vial IVPUSH 0.5 mg Q6H PRN Administration anxiety/restlessness Metoclopramide HCl 10 mg 01/02/21 00:29 01/03/21 08:34 Metoclopramide Hcl 10 Mg/2 Ml Vial IVPUSH 10 mg Q6H PRN Administration Nausea and Vomiting Morphine Sulfate 1 mg 01/02/21 08:39 01/03/21 08:28 Morphine Sulfate 2 Mg/Ml Cartridge IVPUSH 1 mg Q6H PRN Administration Pain, Moderate (Pain Scale 4-6 Sodium Chloride 3 ml 01/02/21 08:00 01/03/21 08:29 0.9 % Sodium Chloride Flush 3 Ml Syringe IVFLUSH 3 ml QSHIFT VICTOR M Administration Labs CBC & Chem 7: 01/02/21 06:37 01/03/21 08:27 Microbiology Microbiology Results: Microbiology 01/01/21 19:44 Urine clean catch - Clean Catch Midstream Urine Culture - Final Citrobacter freundii 01/01/21 21:05 Blood - Venous Blood Culture - Preliminary No growth after 24 hours. 01/01/21 21:05 Blood - Venous Blood Culture - Preliminary No growth after 24 hours. Assessment and Plan (1) Cyclical vomiting: Status: Acute Assessment and Plan: 40-year-old female with a past medical history of hypothyroidism, UTI/pyelonephritis, cyclic vomiting syndrome, substance abuse, cannabis abuse, hypothyroidism presented to the hospital with a chief complaint of nausea vomiting and abdominal discomfort admitted for cyclic vomiting syndrome and UTI Cyclic vomiting syndrome likely secondary to marijuana use Still with nausea vomiting and abdominal pain little improved continue IV fluids. continue Supportive care with Reglan p.r.n. Advance diet as tolerated UTI: Continue ceftriaxone, urine culture grew Citrobacter DVT prophylaxis: SCD boots Code status: Full code
[2021-01-03 19:25] VITALS: BP 131/81; PULSE 76; RESP 18; TEMP 36.2; O2SAT 100
[2021-01-03] MEDS: cefTRIAXone sodium 1 GM in 0.9 % Sodium Chloride 50 ML IV (20:42)
[2021-01-03 23:22] VITALS: BP 117/65; PULSE 83; RESP 19; TEMP 36.7; O2SAT 99
[2021-01-04] MEDS: 0.9 % Sodium Chloride Flush 3 ML SYRINGE IVFLUSH ×2 (00:52→08:40)
[2021-01-04] MEDS: Morphine Sulfate 2 MG/ML CARTRIDGE 1 MG IVPUSH ×2 (02:09→08:40)
[2021-01-04] MEDS: LORazepam 2 MG/ML VIAL 0.5 MG IVPUSH ×2 (02:50→08:49)
[2021-01-04 03:59] VITALS: BP 140/84; PULSE 76; RESP 19; TEMP 36.5; O2SAT 100
[2021-01-04] MEDS: Dextrose 5 % and 0.45 % NaCl 1,000 ML 100 ML IVCONT (04:55)
[2021-01-04 08:00] VITALS: BP 143/86; PULSE 77; RESP 17; TEMP 36.3; O2SAT 98
--- NOTE | 2021-01-04 10:15 | PM.DS ---
DS: Providers Provider Date of Service: 01/11/21 Date of admission: 01/02/21 00:27 Primary care physician: Navi Real MD DS: Diagnosis Discharge Diagnosis (1) Cyclical vomiting: Status: Resolved DS: Medications Discharge Medications Home Medications: Previous Rx's Medication Instructions Recorded cefuroxime axetil 500 mg PO BID 7 Days #14 tab 01/04/21 ondansetron HCl [Zofran] 4 mg PO Q8H PRN #14 tab 01/04/21 oxycodone 5 mg PO TID PRN #5 cap 01/04/21 DS: Summary Hospital Course Hospital Course: HPI 43-year-old female with a past medical history of substance abuse, cannabis abuse, history of cyclic vomiting syndrome, hypothyroidism, history of UTI/pyelonephritis, to the hospital with a chief complaint of nausea and vomiting. Patient mentioned that her current symptoms are similar to the prior symptoms. Also complains of abdominal discomfort. Denies any fever chills cough. Denies any recent travel or sick contacts. Denies any chest pain palpitations. Mentioned that she has been having reduced oral intake. Review of all other systems is negative except mentioned above ER course: Per ER team patient noted to be in discomfort secondary to nausea and vomiting given IV Zofran. Patient's QTC was 499. Subsequently given Reglan. Urinalysis abnormal consistent with UTI-given ceftriaxone. Also her repeat CT abdomen pelvis done which showed no acute intra-abdominal pathology except for some chronic findings. Admitted to the hospital for further management Hospital course 41-year-old female admitted with cyclic and vomiting and UTI ,patient uses marijuana, patient was started on IV Zofran supportive management and started on IV Rocephin, urine culture grew Citrobacter pansensitive, patient's nausea vomiting improved, patient was tolerating regular diet, blood cultures remain negative, patient was stable discharged home on p.o. antibiotic Time Spent with Patient Time attestation: Total time spent providing and/or coordinating discharge services: Discharge coordination time: Greater than 30 minutes Physical Exam Vital Signs: Vital Signs: Last Vital Signs Temp 97.4 F 01/04/21 08:00 Pulse 77 01/04/21 08:00 Resp 17 01/04/21 08:00 BP 143/86 H 01/04/21 08:00 Pulse Ox 98 01/04/21 08:00 Body Mass Index 27.3 DS: Data Data Completed and Pending Labs on day of discharge: Preliminary micro results at discharge 01/01/21 21:05 Blood Culture - Preliminary Blood - Venous No growth after 48 hours. 01/01/21 21:05 Blood Culture - Preliminary Blood - Venous No growth after 48 hours. Discharge Plan Discharge Anticipated Discharge Date/Time: 01/04/21 10:08 Patient Disposition: Home, Self-Care Referrals: Navi Real MD [Primary Care Provider] - Discharge Medications: New cefuroxime axetil 500 mg tablet 500 mg PO BID 7 Days Qty: 14 RF: 0 oxycodone 5 mg capsule 5 mg PO TID PRN (Reason: pain, moderate) Qty: 5 RF: 0 ondansetron HCl [Zofran] 4 mg tablet 4 mg PO Q8H PRN (Reason: nausea and vomiting) Qty: 14 RF: 0 Discharge Orders: Discharge Order (Routine); Ordered 01/04/21 Ordered By: William Pastrana Activity on Discharge: As tolerated Stand Alone Forms: Patient Portal Discharge page, Work/School Release Care Plan Goals: treat UTI Health Concerns: cyclical vomiting Plan of Treatment: po antibiotics Patient Instructions: Urinary Tract Infection in Women (ED), Cyclic Vomiting Syndrome (ED) Discharge Date/Time: 01/04/21 11:50
--- NOTE | 2021-01-04 10:23 | MHC.CM.PN ---
Addendum entered by Venecia López RN 01/04/21 11:01: RETURN TO WORK LETTER AND 2 COPIES OF COVID RESULTS IN DISCHARGE ENVELOPE. Original Note: PT DISCHARGING HOME SELF-CARE WITH FAMILY TO TRANSPORT, CM PRINTED OUT REQUESTED COVID TEST RESULTS FOR PT AND WILL REQUEST RETURN TO WORK NOTE FROM HOSPITALIST.
== END 2021-01-04 11:50 | disposition home or self-care (01) | DRG 812 ==
LOC: HO.ED 01-02 00:28 → HO.EDOVER 01-02 00:38 → HO.S3 01-03 03:52
PROVIDERS: Nurse Practitioner Family; Admitting Provider Hospitalist; Emergency Provider Internal Medicine; PCP Family Medicine; Visit Provider Internal Medicine
DX: T40.7X1A Poisoning by cannabis (derivatives), accidental (unintentional), initial encounter (principal); E03.9 Hypothyroidism, unspecified; N39.0 Urinary tract infection, site not specified; F17.210 Nicotine dependence, cigarettes, uncomplicated; Z20.822 Contact with and (suspected) exposure to COVID-19; Z71.6 Tobacco abuse counseling; Z88.0 Allergy status to penicillin; Z88.5 Allergy status to narcotic agent; Y92.9 Unspecified place or not applicable; R11.15 Cyclical vomiting syndrome unrelated to migraine
CPT/HCPCS: 0241U; 36415; 74177; 80048; 80076; 81001; 81003; 81025; 83605; 83690; 83735; 85007; 85025; 85027; 87040; 87086; 87088; 87186; 96361; 96365; 96375; 99218; 99285; J0696; J1170; J1200; J2060; J2270; J2765; Q9967

== ENCOUNTER 2021-02-04 07:57 | Emergency (ER) | payer OTHER, SELFPAY ==
--- NOTE | ~2021-02-04 | CT_ITS ---
EXAMINATION: CT ABDOMEN AND PELVIS WITH CONTRAST CLINICAL INFORMATION: 41-year-old female with lower abdominal pain. Nausea and vomiting. COMPARISON: CT abdomen pelvis 01/01/2021 TECHNIQUE: Multidetector volumetric images were obtained from the superior aspect of the liver through the pubic symphysis following administration 85 mL of Omnipaque 350 intravenous contrast. Sagittal and coronal reformatted images were obtained on the technologist's workstation. This CT examination was performed using dose optimization techniques as appropriate, variously including the following: *Automated exposure control *Adjustment of mA and/or kV according to patient size (this includes techniques or standardized protocols for targeted exams where dose is matched to indication/reason for exam; i.e. extremities or head) *Use of iterative reconstruction technique DLP: 526 mGy-cm FINDINGS: Visualized lung bases are well aerated. The liver demonstrates normal size, contour and attenuation. The gallbladder is normal in appearance. The liver, spleen and adrenal glands are unremarkable. Symmetrically enhancing kidneys. No hydronephrosis bilaterally. The stomach is relatively decompressed. Normal caliber loops of small and large bowel. Normal appendix. Nonaneurysmal abdominal aorta which demonstrates only minimal atherosclerotic disease. No retroperitoneal lymphadenopathy. The bladder is normal in appearance. Unremarkable CT appearance of the uterus. Suspected nabothian cysts. Similar curvilinear fluid density along the course of the urethra, possibly representing a urethral diverticulum or vaginal inclusion cyst. No acute osseous abnormality. Small amount of free pelvic fluid, likely physiologic. Shotty bilateral inguinal lymph nodes are stable. CT/CT abdomen pelvis w con IMPRESSION: Stable examination. No CT evidence for acute abnormality within the abdomen or pelvis.
[2021-02-04 07:59] VITALS: BP 185/95; PULSE 80; RESP 20; TEMP 36.4; O2SAT 99; BMI 31.1
--- NOTE | 2021-02-04 09:49 | ED.ABDPAIN ---
HPI - Abdominal Pain General Chief Complaint: Abdominal Pain Stated Complaint: abd pain Time Seen by Provider: 02/04/21 08:52 Source: patient Mode of arrival: ambulatory Limitations: no limitations History of Present Illness HPI narrative: 41-year-old female with a past medical history of hypothyroidism, pyelonephritis, cyclical vomiting possibly marijuana induced, opioid abuse, pyelonephritis and past surgical history of tubal ligation presenting to the ED with complaints of nausea/vomiting with associated lower abdominal pain radiating to her lower back that started today with associated sweats and chills. Reports it feels like when she had her pyelonephritis infection and was hospitalized at the end of December/2020. Denies recent travel/sick contacts or possible bad food exposure.n reports her last menstrual period was 01/16/2021. Denies any focal weakness, weight loss, dizziness, headaches, hemoptysis, hematemeis, jaw pain, chest pain, shortness of breath, dyspnea on exertion, orthopnea, palpitations, sore throat, cough, dysuria, hematuria, vaginal discharge, constipation, diarrhea or any other symptoms complaints or concerns at this time. MD elicited complaint: abdominal pain Pertinent past history: other (Cyclical vomiting history of marijuana usage) Pain Consistency: constant Location: suprapubic Severity: moderate Quality: aching Radiation: back (Lower back) Exacerbating factors: vomiting Relieving factors: nothing Associated symptoms: nausea and vomiting Related Data Patient : No Previous Rx's Medication Instructions Recorded cefuroxime axetil 500 mg PO BID 7 Days #14 tab 01/04/21 ondansetron HCl [Zofran] 4 mg PO Q8H PRN #14 tab 01/04/21 oxycodone 5 mg PO TID PRN #5 cap 01/04/21 acetaminophen [Tylenol Extra 1,000 mg PO QID PRN #14 tab 02/04/21 Strength] cefuroxime axetil 500 mg PO BID 7 Days #14 tab 02/04/21 ibuprofen 800 mg PO Q8H PRN #14 tab 02/04/21 ondansetron HCl [Zofran] 4 mg PO Q8H PRN #14 tab 02/04/21 oxycodone 5 mg PO BID PRN #5 tab 02/04/21 Allergies Allergy/AdvReac Type Severity Reaction Status Date / Time amoxicillin [Amoxicillin] Allergy Intermediate HIVES Verified 02/04/21 07:59 tramadol AdvReac Intermediate SOB Verified 02/04/21 07:59 Review of Systems Review of Systems Constitutional : + Chills, No Fever, No Chills, No Night Sweats, No Fatigue, No Malaise Cardiovascular : No Chest Pain, No SOB Respiratory : No Cough, No Sputum, No Wheezing, No Dyspnea Gastrointestinal : + Nausea, + Vomiting, + Abdominal Pain, No Diarrhea, No Constipation, No Hematochezia, No Melena, No hematemesis Genitourinary : No irregular bleeding, No Dysuria, No Urinary Frequency, No Hematuria,No Urinary Incontinence, No Urgency, No Flank Pain Musculoskeletal : + Lower back pain, No neck pain/stiffness, No joint pain, No Myalgias, No Joint Swelling Skin : No Skin Lesions, No rash Neuro : No Weakness, No Numbness, No Paresthesias, No Loss of Consciousness, No Dizziness, No Headache Heme/Lymph: No Lymphadenopathy Endocrine : No Temperature Intolerance Yes all other systems are reviewed and are negative Physical Exam Vital Signs: Vital Signs: Last Vital Signs Temp 97.6 F 02/04/21 07:59 Pulse 80 02/04/21 07:59 Resp 20 02/04/21 07:59 BP 185/95 H 02/04/21 07:59 Pulse Ox 99 02/04/21 07:59 Body Mass Index 31.1 vital signs have been reviewed as normal and appeared to be correct. Blood pressure hypertensive at 185/95. Heart rate normal. Respiration rate normal. Temperature normal. Oxygen saturation normal. Appearance: Alert. Oriented X3. No acute distress. Head: Normal external exam. Normocephalic. Eyes: PERRLA. EOMI. Conjunctiva and sclera normal. Eyelids normal. ENT: Pharynx normal. Uvula midline. Moist mucous membranes. Neck: Normal inspection. Neck supple. FROM. No adenopathy. No meningeal signs. CVS: Normal heart rate and rhythm. Heart sound normal. No murmurs noted. Pulses normal throughout. Respiratory: No respiratory distress. Painless inspiration. Breath sounds normal. No wheezes/rales/rhonchi noted. Chest nontender. No accessory muscle usage noted or decreased air movement noted. Abdomen: Soft and nontender. No reproducible tenderness is noted. Nondistended. No guarding. No rigidity. Bowel sounds normal in all 4 quadrants. No distention noted. No organomegaly noted. No visible injury noted. No rebound tenderness. Negative Rovsing sign. Negative obturator's sign. Negative psoas sign. Negative Lam sign. Back: No CVA tenderness. Full range of motion noted. Skin: Skin warm and dry. Normal skin color. Normal skin turgor. No rashes/lesions/lacerations noted. Extremities: Extremities exhibit normal range of motion. Extremities nontender. Neuro: Oriented X 3. No motor deficit. No sensory deficit. Reflexes normal. Course Course Course Narrative: 9:52am - 41-year-old female with a past medical history of hypothyroidism, pyelonephritis, cyclical vomiting possibly marijuana induced, opioid abuse, pyelonephritis and past surgical history of tubal ligation presenting to the ED with complaints of nausea/vomiting with associated lower abdominal pain radiating to her lower back that started today with associated sweats and chills. Was hospitalized on 01/02/2021 for cyclical vomiting/UTI/pyelonephritis. - on exam patient is alert and oriented x3. Not in any acute distress. Mildly hypertensive at 185/95 otherwise all other vitals are within normal limits. No focal neuro deficit and are noted. Lungs clear to auscultation. CV RRR. Patient complains of lower abdominal pain although on exam abdomen is soft and no reproducible tenderness is noted. No CVA tenderness is noted. - Plan: Labs, UA, CT scan of abdomen and pelvis with IV contrast. Provide a L of IV fluids, 4 mg of Zofran and 30 mg of Toradol then re-evaluate. Reevaluation(s) Reevaluation #1: - patient mild baseline anemia similar when compared to prior. Otherwise all other labs are within normal limits. Serum quant negative for . UA revealed leukocytosis although positive epithelial cells possibly a dirty catch although patient has had UTI with pyelonephritis in the past therefore will placed on antibiotics. Otherwise CT scan of abdomen and pelvis revealed chronic changes no acute processes noted. Patient has not had any episodes of vomiting while here in the ER. Is tolerating p.o.. Will DC home with antibiotics and symptomatic treatment alone instructions return if any new or worsening symptoms to follow up with primary care provider. Time: 12:[address] [facility] - Abdominal Pain Medical Records Attestation: I reviewed the patient's medical records. Lab Data Attestation: I reviewed the patient's lab results. Result diagrams: 02/04/21 09:52 02/04/21 09:52 Labs: Lab Results 02/04/21 02/04/21 02/04/21 Range/Units 09:52 09:52 09:52 WBC 6.7 (4.8-10.8) X10*3/uL RBC 4.02 L (4.20-5.50) X10*6/uL Hgb 9.9 L (12.0-16.0) g/dl Hct 32.7 L (37-47) % MCV 81.3 (80-98) fL MCH 24.6 L (27.0-33.0) pg MCHC 30.3 L (31.0-35.0) g/dl RDW 16.1 H (11.0-16.0) % Plt Count 185 (160-400) X10*3/uL MPV 11.8 (9.4-12.3) fL Immature Gran % (Auto) 0.1 (0.0-0.4) % Neut % (Auto) 85.8 H (45-73) % Lymph % (Auto) 9.3 L (20-40) % [place] % (Auto) 4.2 (2-11) % Eos % (Auto) 0.3 (0-4) % Baso % (Auto) 0.3 (0-2) % Lymph # (Auto) 0.6 L (1.2-4.9) X10*3/uL [place] # (Auto) 0.3 (0.1-1.2) X10*3/uL Eos # (Auto) 0.0 (0.0-0.4) X10*3/uL Baso # (Auto) 0.0 (0.0-0.2) X10*3/uL Abs Immat Gran (auto) 0.01 (0.00-0.03) X10*3/uL Absolute Neuts (auto) 5.7 (2.0-8.3) X10*3/uL Absolute Nucleated RBC 0.000 (0.0-0.012) X10*3/uL Nucleated RBC % (auto) 0.0 (0.0-0.2) /100WBC Smear Tech's Comments VERIFIED PT 12.9 (10.8-13.0) SEC INR 1.1 (0.9-1.1) APTT 33.5 (24.1-38.0) SEC Sodium 136 (135-145) mmol/L Potassium 4.2 D (3.3-5.1) mmol/L Chloride 106 (96-108) mmol/L Carbon Dioxide 21 L (22-29) mmol/L Anion Gap 13 (12-20) BUN 14 D (9-16) mg/dL Creatinine 0.71 (0.5-1.4) mg/dL Estim Creat Clear Calc 94.5 Estimated GFR > 60 Random Glucose 111 (60-115) mg/dL Calcium 8.6 (8.4-10.2) mg/dL Magnesium 2.1 (1.6-2.6) mg/dL Total Bilirubin 0.3 (0.0-1.0) mg/dL Direct Bilirubin 0.2 (0.0-0.5) mg/dL AST 20 (5-31) U/L ALT 18 (0-31) U/L Alkaline Phosphatase 54 (39-117) U/L Total Protein 7.7 (6.5-8.0) g/dL Albumin 4.2 (3.5-5.0) g/dL Lipase 76 (8-78) U/L Beta HCG, Quant mIU/mL Urine Color Urine Appearance Urine pH (5.0-8.0) Ur Specific [place] (1.005-1.025) Urine Protein (NEG-TRACE) MG/DL Urine Glucose (UA) (NEG) MG/DL Urine Ketones (NEG) MG/DL Urine Blood (NEG) Urine Nitrite (NEG) Ur Leukocyte Esterase (NEG) Urine RBC (0) /HPF Urine WBC (0-4) /HPF Ur Squamous Epith Cells /LPF Talc Crystals /LPF Amorphous Sediment /LPF Urine Bacteria /LPF Urine Opiates Screen (Not Detect) Ur Barbiturates Screen (Not Detect) Ur Phencyclidine Scrn (Not Detect) Ur Amphetamines Screen (Not Detect) U Benzodiazepines Scrn (Not Detect) Urine Cocaine Screen (Not Detect) U Marijuana (THC) Screen (Not Detect) Ethyl Alcohol mg/dL Coronavirus (PCR) (Negative) Influenza Type A (PCR) (Negative) Influenza Type B (PCR) (Negative) RSV RNA Qual (PCR) (Negative) 02/04/21 02/04/21 02/04/21 Range/Units 09:52 09:52 09:52 WBC (4.8-10.8) X10*3/uL RBC (4.20-5.50) X10*6/uL Hgb (12.0-16.0) g/dl Hct (37-47) % MCV (80-98) fL MCH (27.0-33.0) pg MCHC (31.0-35.0) g/dl RDW (11.0-16.0) % Plt Count (160-400) X10*3/uL MPV (9.4-12.3) fL Immature Gran % (Auto) (0.0-0.4) % Neut % (Auto) (45-73) % Lymph % (Auto) (20-40) % [place] % (Auto) (2-11) % Eos % (Auto) (0-4) % Baso % (Auto) (0-2) % Lymph # (Auto) (1.2-4.9) X10*3/uL [place] # (Auto) (0.1-1.2) X10*3/uL Eos # (Auto) (0.0-0.4) X10*3/uL Baso # (Auto) (0.0-0.2) X10*3/uL Abs Immat Gran (auto) (0.00-0.03) X10*3/uL Absolute Neuts (auto) (2.0-8.3) X10*3/uL Absolute Nucleated RBC (0.0-0.012) X10*3/uL Nucleated RBC % (auto) (0.0-0.2) /100WBC Smear Tech's Comments PT (10.8-13.0) SEC INR (0.9-1.1) APTT (24.1-38.0) SEC Sodium (135-145) mmol/L Potassium (3.3-5.1) mmol/L Chloride (96-108) mmol/L Carbon Dioxide (22-29) mmol/L Anion Gap (12-20) BUN (9-16) mg/dL Creatinine (0.5-1.4) mg/dL Estim Creat Clear Calc Estimated GFR Random Glucose (60-115) mg/dL Calcium (8.4-10.2) mg/dL Magnesium (1.6-2.6) mg/dL Total Bilirubin (0.0-1.0) mg/dL Direct Bilirubin (0.0-0.5) mg/dL AST (5-31) U/L ALT (0-31) U/L Alkaline Phosphatase (39-117) U/L Total Protein (6.5-8.0) g/dL Albumin (3.5-5.0) g/dL Lipase (8-78) U/L Beta HCG, Quant < 2 mIU/mL Urine Color Urine Appearance Urine pH (5.0-8.0) Ur Specific [place] (1.005-1.025) Urine Protein (NEG-TRACE) MG/DL Urine Glucose (UA) (NEG) MG/DL Urine Ketones (NEG) MG/DL Urine Blood (NEG) Urine Nitrite (NEG) Ur Leukocyte Esterase (NEG) Urine RBC (0) /HPF Urine WBC (0-4) /HPF Ur Squamous Epith Cells /LPF Talc Crystals /LPF Amorphous Sediment /LPF Urine Bacteria /LPF Urine Opiates Screen (Not Detect) Ur Barbiturates Screen (Not Detect) Ur Phencyclidine Scrn (Not Detect) Ur Amphetamines Screen (Not Detect) U Benzodiazepines Scrn (Not Detect) Urine Cocaine Screen (Not Detect) U Marijuana (THC) Screen (Not Detect) Ethyl Alcohol < 10 mg/dL Coronavirus (PCR) NEGATIVE (Negative) Influenza Type A (PCR) NEGATIVE (Negative) Influenza Type B (PCR) NEGATIVE (Negative) RSV RNA Qual (PCR) NEGATIVE (Negative) 02/04/21 02/04/21 Range/Units 09:52 09:52 WBC (4.8-10.8) X10*3/uL RBC (4.20-5.50) X10*6/uL Hgb (12.0-16.0) g/dl Hct (37-47) % MCV (80-98) fL MCH (27.0-33.0) pg MCHC (31.0-35.0) g/dl RDW (11.0-16.0) % Plt Count (160-400) X10*3/uL MPV (9.4-12.3) fL Immature Gran % (Auto) (0.0-0.4) % Neut % (Auto) (45-73) % Lymph % (Auto) (20-40) % [place] % (Auto) (2-11) % Eos % (Auto) (0-4) % Baso % (Auto) (0-2) % Lymph # (Auto) (1.2-4.9) X10*3/uL [place] # (Auto) (0.1-1.2) X10*3/uL Eos # (Auto) (0.0-0.4) X10*3/uL Baso # (Auto) (0.0-0.2) X10*3/uL Abs Immat Gran (auto) (0.00-0.03) X10*3/uL Absolute Neuts (auto) (2.0-8.3) X10*3/uL Absolute Nucleated RBC (0.0-0.012) X10*3/uL Nucleated RBC % (auto) (0.0-0.2) /100WBC Smear Tech's Comments PT (10.8-13.0) SEC INR (0.9-1.1) APTT (24.1-38.0) SEC Sodium (135-145) mmol/L Potassium (3.3-5.1) mmol/L Chloride (96-108) mmol/L Carbon Dioxide (22-29) mmol/L Anion Gap (12-20) BUN (9-16) mg/dL Creatinine (0.5-1.4) mg/dL Estim Creat Clear Calc Estimated GFR Random Glucose (60-115) mg/dL Calcium (8.4-10.2) mg/dL Magnesium (1.6-2.6) mg/dL Total Bilirubin (0.0-1.0) mg/dL Direct Bilirubin (0.0-0.5) mg/dL AST (5-31) U/L ALT (0-31) U/L Alkaline Phosphatase (39-117) U/L Total Protein (6.5-8.0) g/dL Albumin (3.5-5.0) g/dL Lipase (8-78) U/L Beta HCG, Quant mIU/mL Urine Color YELLOW Urine Appearance HAZY Urine pH 7.5 (5.0-8.0) Ur Specific [place] 1.025 (1.005-1.025) Urine Protein NEG (NEG-TRACE) MG/DL Urine Glucose (UA) NEG (NEG) MG/DL Urine Ketones NEG (NEG) MG/DL Urine Blood NEG (NEG) Urine Nitrite NEG (NEG) Ur Leukocyte Esterase 2+ H (NEG) Urine RBC 0-2 (0) /HPF Urine WBC 15-29 H (0-4) /HPF Ur Squamous Epith Cells 3+ /LPF Talc Crystals 1+ /LPF Amorphous Sediment 1+ /LPF Urine Bacteria 1+ /LPF Urine Opiates Screen Not Detected (Not Detect) Ur Barbiturates Screen Not Detected (Not Detect) Ur Phencyclidine Scrn Not Detected (Not Detect) Ur Amphetamines Screen Not Detected (Not Detect) U Benzodiazepines Scrn Not Detected (Not Detect) Urine Cocaine Screen POSITIVE H (Not Detect) U Marijuana (THC) Screen POSITIVE H (Not Detect) Ethyl Alcohol mg/dL Coronavirus (PCR) (Negative) Influenza Type A (PCR) (Negative) Influenza Type B (PCR) (Negative) RSV RNA Qual (PCR) (Negative) Imaging Data CT scan of abdomen and pelvis with IV contrast: Attestation: I personally reviewed and interpreted this imaging study as follows: Radiologist's impression: FINDINGS: Visualized lung bases are well aerated. The liver demonstrates normal size, contour and attenuation. The gallbladder is normal in appearance. The liver, spleen and adrenal glands are unremarkable. Symmetrically enhancing kidneys. No hydronephrosis bilaterally. The stomach is relatively decompressed. Normal caliber loops of small and large bowel. Normal appendix. Nonaneurysmal abdominal aorta which demonstrates only minimal atherosclerotic disease. No retroperitoneal lymphadenopathy. The bladder is normal in appearance. Unremarkable CT appearance of the uterus. Suspected nabothian cysts. Similar curvilinear fluid density along the course of the urethra, possibly representing a urethral diverticulum or vaginal inclusion cyst. No acute osseous abnormality. Small amount of free pelvic fluid, likely physiologic. Shotty bilateral inguinal lymph nodes are stable. CT/CT abdomen pelvis w con IMPRESSION: Stable examination. No CT evidence for acute abnormality within the abdomen or pelvis. Discharge Plan Discharge Clinical Impression: Cyclical vomiting syndrome, UTI (urinary tract infection) Patient Disposition: Home, Self-Care Instructions: Urinary Tract Infection in Women (ED), Cyclic Vomiting Syndrome (ED) Prescriptions: New cefuroxime axetil 500 mg tablet 500 mg PO BID 7 Days Qty: 14 RF: 0 ondansetron HCl [Zofran] 4 mg tablet 4 mg PO Q8H PRN (Reason: nausea and vomiting) Qty: 14 RF: 0 acetaminophen [Tylenol Extra Strength] 500 mg tablet 1,000 mg PO QID PRN (Reason: fever or pain) Qty: 14 RF: 0 ibuprofen 800 mg tablet 800 mg PO Q8H PRN (Reason: pain) Qty: 14 RF: 0 oxycodone 5 mg tablet 5 mg PO BID PRN (Reason: pain) Qty: 5 RF: 0 No Action cefuroxime axetil 500 mg tablet 500 mg PO BID 7 Days Qty: 14 RF: 0 oxycodone 5 mg capsule 5 mg PO TID PRN (Reason: pain, moderate) Qty: 5 RF: 0 ondansetron HCl [Zofran] 4 mg tablet 4 mg PO Q8H PRN (Reason: nausea and vomiting) Qty: 14 RF: 0 Referrals: Navi Real MD [Primary Care Provider] - 2 days Stand Alone Forms: Work/School Release Print Language: Hebrew [facility] [place] Past Medical History Attestation statement: The following information was validated with the patient. Medical History Abscess Cyclical vomiting Surgical History Tubal ligation status Social History Social History Household Members: Children Housing: House Alcohol intake: never Smoking Status: Current every day smoker Tobacco Type: Cigarette Cigarettes Per Day: 3 Substance Use Type: Marijuana and Painkillers Advance Directives: Yes Advance Directives on File: Yes Advance Directives Date on File: 01/02/21 service: No Current occupational status: employed
[2021-02-04] MEDS: Ketorolac Tromethamine 30 MG/ML VIAL IVPUSH (10:04)
[2021-02-04] MEDS: 0.9 % Sodium Chloride 1,000 ML 999 ML IVCONT (10:04)
[2021-02-04 10:05] LABS: Glucose Urine UA NEG (NEG); Leukocyte Esterase Urine 2+ (NEG); Nitrite Urine NEG (NEG); PH 7.5 (5.0-8.0); Specific Gravity - Urine 1.025 (1.005-1.025); UACC Culture Trigger YES; Urine Blood NEG (NEG); Urine Ketones NEG (NEG); Urine Protein NEG (NEG-TRACE)
[2021-02-04] MEDS: ondansetron HCL 4 MG/2 ML VIAL IVPUSH (10:05)
[2021-02-04 10:13] LABS: Basophils Percent Auto 0.3 % (0-2); Eosinophils Percent Auto 0.3 % (0-4); Hematocrit 32.7 % (37-47); Hemoglobin 9.9 g/dl (12.0-16.0); Imm Gran Abs Auto 0.01 X10*3/uL (0.00-0.03); Imm Gran Pct Auto 0.1 % (0.0-0.4); Lymphocytes Absolute Auto 0.6 X10*3/uL (1.2-4.9); Lymphocytes Percent Auto 9.3 % (20-40); MANUAL DIFF FLAG SCAN; Mean Corpuscular HGB Conc 30.3 g/dl (31.0-35.0); Mean Corpuscular Hemoglobin 24.6 pg (27.0-33.0); Mean Corpuscular Volume 81.3 fL (80-98); Mean Platelet Volume 11.8 fL (9.4-12.3); Monocytes Absolute Auto 0.3 X10*3/uL (0.1-1.2); Monocytes Percent Auto 4.2 % (2-11); Neutrophils Absolute Auto 5.7 X10*3/uL (2.0-8.3); Neutrophils Percent Auto 85.8 % (45-73); Platelet Count 185 X10*3/uL (160-400); Red Blood Count 4.02 X10*6/uL (4.20-5.50); Red Cell Distribution Width 16.1 % (11.0-16.0); SCAN SMEAR FLAG 1; White Blood Count 6.7 X10*3/uL (4.8-10.8)
[2021-02-04 10:18] LABS: Appearance Urine HAZY; Color Urine YELLOW
[2021-02-04 10:19] LABS: Ethanol < 10 mg/dL
[2021-02-04 10:24] LABS: Alanine Aminotransferase 18 U/L (0-31); Albumin Level 4.2 g/dL (3.5-5.0); Alkaline Phosphatase 54 U/L (39-117); Amphetamine Screen Urine Not Detected (Not Detect); Anion Gap 13 (12-20); Aspartate Amino Transferase 20 U/L (5-31); Barbiturates, Urine Not Detected (Not Detect); Benzodiazepines Screen Urine Not Detected (Not Detect); Bilirubin Direct 0.2 mg/dL (0.0-0.5); Bilirubin Total 0.3 mg/dL (0.0-1.0); Blood Urea Nitrogen 14 mg/dL (9-16); Calcium 8.6 mg/dL (8.4-10.2); Cannabinoid Screen Urine POSITIVE (Not Detect); Carbon Dioxide 21 mmol/L (22-29); Chloride 106 mmol/L (96-108); Cocaine Screen Urine POSITIVE (Not Detect); Creatinine Clr Calc Pharmacy 94.5; Estimated Glomerular Filt Rate > 60; Glucose Random 111 mg/dL (60-115); INTERNATIONAL NORM RATIO 1.1 (0.9-1.1); Lipase 76 U/L (8-78); Magnesium 2.1 mg/dL (1.6-2.6); Opiate Screen Urine Not Detected (Not Detect); Phencyclidine Screen Urine Not Detected (Not Detect); Potassium 4.2 mmol/L (3.3-5.1); Prothrombin Time 12.9 SEC (10.8-13.0); Sodium 136 mmol/L (135-145); Total Protein 7.7 g/dL (6.5-8.0)
[2021-02-04 10:26] LABS: Partial Thromboplastin Time 33.5 SEC (24.1-38.0)
[2021-02-04 10:27] LABS: Bacteria Urine 1+ /LPF; HCG Quantitative < 2 mIU/mL; RBC Urine 0-2 /HPF (0); Squamous Epithelial Cell Urine 3+ /LPF
[2021-02-04 10:28] LABS: Amorphous Sediment Urine 1+ /LPF; Urine Talc Crystals 1+ /LPF
[2021-02-04 10:31] LABS: SLIDE REVIEW VERIFIED
[2021-02-04 11:06] LABS: Influenza A PCR NEGATIVE (Negative); Influenza B PCR NEGATIVE (Negative); Resp Syncy Virus RNA Qual PCR NEGATIVE (Negative); SARS COV2 PCR INHOUSE NEGATIVE (Negative)
[2021-02-04] MEDS: iohexoL 350 MG/ML 75 ML INFUS..BTL IV (11:09)
[2021-02-04] MEDS: Morphine Sulfate 4 MG/ML CARTRIDGE IVPUSH (11:28)
[2021-02-04 12:18] VITALS: BP 118/68; PULSE 62; RESP 18; O2SAT 100
== END 2021-02-04 12:40 | disposition home or self-care (01) ==
PROVIDERS: Physician Assistant Medical; Emergency Provider Emergency Medicine; PCP Family Medicine
DX: R11.15 Cyclical vomiting syndrome unrelated to migraine (principal); N39.0 Urinary tract infection, site not specified; F12.90 Cannabis use, unspecified, uncomplicated; F14.90 Cocaine use, unspecified, uncomplicated; Z20.822 Contact with and (suspected) exposure to COVID-19; F11.10 Opioid abuse, uncomplicated; I10 Essential (primary) hypertension; F17.210 Nicotine dependence, cigarettes, uncomplicated
CPT/HCPCS: 0241U; 36415; 74177; 80048; 80076; 80307; 80320; 81001; 81003; 83690; 83735; 84702; 85025; 85610; 85730; 87086; 87088; 87186; 96361; 96374; 96375; 99284; J1885; J2270; J2405; Q9967

== ENCOUNTER 2021-02-05 09:26 | Inpatient (IN) | payer OTHER, SELFPAY ==
[2021-02-05] VITALS (7 sets, daily range): BP systolic 119–168; BP diastolic 73–105; PULSE 69–98; RESP 16–22; TEMP 35.8–37.3; O2SAT 94–100; BMI 28.3
--- NOTE | ~2021-02-05 | US_ITS ---
EXAMINATION: ULTRASOUND PELVIC, COMPLETE CLINICAL INFORMATION: Lower abdominal pain. COMPARISON: CT scan abdomen pelvis February 04, 2021, pelvic ultrasound 04/28/2017 TECHNIQUE: Transvaginal: Used to better visualize pelvic structures Transabdominal: Not adequate for visualization Spectral Doppler and color Doppler exam was utilized. LMP: 12/19/2020 FINDINGS: UTERUS: Unremarkable. Uterus measures 9.8 x 4 x 6 cm The endometrial cavity measures 1 cm. No fluid in the endometrial cavity. There are multiple small nabothian cysts. There is an anechoic cyst measuring 1.8 x 1.4 x 1.6 cm. Difficult to tell this is a nabothian cysts of the cervix or a cyst at the posterior wall of the vagina. With transvaginal ultrasound this appears to be likely related to the vaginal wall. ADNEXA: Ovarian vascularity:Doppler demonstrates both arterial and venous vascular flow in the right and left ovary. No evidence of ovarian torsion. Right Ovary: There is a right adnexal ovarian versus paraovarian cyst which is anechoic. This measures 2.1 x 1.9 x 1.9 cm. The right ovary measures 3.9 x 1.9 x 2.4 cm. Right ovarian volume 9.3 mL. Left Ovary: Left ovary measures 3.2 x 2 x 3 cm. Left ovarian volume 10.1 mL. Cul-de-sac: No Fluid US/US pelvic complete IMPRESSION: 1. Normal ultrasound of uterus. 2. Simple cyst in the right adnexa area which is ovarian versus paraovarian. 3. Multiple small nabothian cysts. 4. 1.8 cm simple cyst which is may be a prominent nabothian cysts versus a cyst at the posterior wall of the vagina.
--- NOTE | ~2021-02-05 | US_ITS ---
EXAMINATION: ULTRASOUND PELVIC, COMPLETE CLINICAL INFORMATION: Lower abdominal pain. COMPARISON: CT scan abdomen pelvis February 04, 2021, pelvic ultrasound 04/28/2017 TECHNIQUE: Transvaginal: Used to better visualize pelvic structures Transabdominal: Not adequate for visualization Spectral Doppler and color Doppler exam was utilized. LMP: 12/19/2020 FINDINGS: UTERUS: Unremarkable. Uterus measures 9.8 x 4 x 6 cm The endometrial cavity measures 1 cm. No fluid in the endometrial cavity. There are multiple small nabothian cysts. There is an anechoic cyst measuring 1.8 x 1.4 x 1.6 cm. Difficult to tell this is a nabothian cysts of the cervix or a cyst at the posterior wall of the vagina. With transvaginal ultrasound this appears to be likely related to the vaginal wall. ADNEXA: Ovarian vascularity:Doppler demonstrates both arterial and venous vascular flow in the right and left ovary. No evidence of ovarian torsion. Right Ovary: There is a right adnexal ovarian versus paraovarian cyst which is anechoic. This measures 2.1 x 1.9 x 1.9 cm. The right ovary measures 3.9 x 1.9 x 2.4 cm. Right ovarian volume 9.3 mL. Left Ovary: Left ovary measures 3.2 x 2 x 3 cm. Left ovarian volume 10.1 mL. Cul-de-sac: No Fluid US/US transvaginal IMPRESSION: 1. Normal ultrasound of uterus. 2. Simple cyst in the right adnexa area which is ovarian versus paraovarian. 3. Multiple small nabothian cysts. 4. 1.8 cm simple cyst which is may be a prominent nabothian cysts versus a cyst at the posterior wall of the vagina.
[2021-02-05] MEDS: ondansetron HCL 4 MG/2 ML VIAL IVPUSH ×2 (10:27→20:05)
[2021-02-05] MEDS: LORazepam 2 MG/ML VIAL 1 MG IVPUSH ×2 (10:27→11:59)
[2021-02-05] MEDS: 0.9 % Sodium Chloride 1,000 ML 999 ML IVCONT ×3 (10:27→13:40)
[2021-02-05 10:46] LABS: Hematocrit 33.5 % (37-47); Hemoglobin 10.2 g/dl (12.0-16.0); Mean Corpuscular HGB Conc 30.4 g/dl (31.0-35.0); Mean Corpuscular Volume 82.1 fL (80-98); Mean Platelet Volume 12.3 fL (9.4-12.3); Platelet Count 208 X10*3/uL (160-400); Red Blood Count 4.08 X10*6/uL (4.20-5.50); Red Cell Distribution Width 16.3 % (11.0-16.0)
[2021-02-05 10:50] LABS: WBC ABN SCTR FOR CBC 1
[2021-02-05 11:04] LABS: Alanine Aminotransferase 17 U/L (0-31); Albumin Level 4.1 g/dL (3.5-5.0); Alkaline Phosphatase 53 U/L (39-117); Anion Gap 14 (12-20); Aspartate Amino Transferase 19 U/L (5-31); Bilirubin Total 0.4 mg/dL (0.0-1.0); Blood Urea Nitrogen 13 mg/dL (9-16); Calcium 8.4 mg/dL (8.4-10.2); Carbon Dioxide 21 mmol/L (22-29); Creatinine Clr Calc Pharmacy 92.1; Estimated Glomerular Filt Rate > 60; Glucose Random 110 mg/dL (60-115); Lipase 59 U/L (8-78); Potassium 3.9 mmol/L (3.3-5.1); Sodium 137 mmol/L (135-145); Total Protein 7.7 g/dL (6.5-8.0)
[2021-02-05 11:08] LABS: Chloride 106 mmol/L (96-108)
[2021-02-05 11:10] LABS: Band Neutrophils Percent 4 % (3-5); Eosinophils Percent Manual 2 % (0-4); HCG Quantitative < 2 mIU/mL; Lymphocytes Percent Manual 14 % (20-40); Metamyelocytes Percent 1 %; Monocytes Percent Manual 2 % (2-11); Neutrophils Percent Manual 77 % (45-73)
[2021-02-05 11:11] LABS: Platelet Estimate NORMAL (NORMAL); Platelet Morphology Comment NORMAL; RBC Morphology NORMAL
[2021-02-05 11:12] LABS: Eosinophils Absolute Manual 0.1 X10*3/UL (0.0-0.8); Metamyelocytes Absolute 0.1 X10*3/uL; Monocytes Absolute Manual 0.1 X10*3/uL (0.0-1.2); Neutrophils Absolute Manual 5.8 X10*3/uL (2.2-7.9); White Blood Count 7.1 X10*3/uL (4.8-10.8)
--- NOTE | 2021-02-05 11:17 | PC.NURSE ---
pt reports 10/10 lower abdominal pain. She states she was seen here yesterday, treated with toradol and states that did not work but was then given morphine that did help. She reports she needs medication for pain. She has stopped vomiting, reports hot and cold flashes . VS stable. will update MD about pain.
--- NOTE | 2021-02-05 11:21 | ED_ITS ---
HPI - Nausea/Vomiting/Diarrhea General Chief complaint: Nausea/Vomiting/Diarrhea Stated complaint: UTI?, vomiting, abd pain Time Seen by Provider: 02/05/21 10:12 History of Present Illness HPI Narrative: This is a 41 years old of female presented there with vomiting. She was here yesterday she carries diagnoses of with cyclic vomiting syndrome she had a CT scan of the abdomen and pelvis which was normal she is returning today with vomiting there is no fever no diarrhea no chills MD elicited complaint: vomiting Related Data Previous Rx's Medication Instructions Recorded cefuroxime axetil 500 mg PO BID 7 Days #14 tab 01/04/21 ondansetron HCl [Zofran] 4 mg PO Q8H PRN #14 tab 01/04/21 oxycodone 5 mg PO TID PRN #5 cap 01/04/21 acetaminophen [Tylenol Extra 1,000 mg PO QID PRN #14 tab 02/04/21 Strength] cefuroxime axetil 500 mg PO BID 7 Days #14 tab 02/04/21 ibuprofen 800 mg PO Q8H PRN #14 tab 02/04/21 ondansetron HCl [Zofran] 4 mg PO Q8H PRN #14 tab 02/04/21 oxycodone 5 mg PO BID PRN #5 tab 02/04/21 Allergies Allergy/AdvReac Type Severity Reaction Status Date / Time amoxicillin [Amoxicillin] Allergy Intermediate HIVES Verified 02/04/21 07:59 tramadol AdvReac Intermediate SOB Verified 02/04/21 07:59 Review of Systems Review of Systems: Yes all other systems are reviewed and are negative Gastrointestinal: Gastrointestinal: Denies melena and Denies hematochezia Neurologic: Reports system reviewed and no additional complaints, except as documented PMFSH Past Medical History Attestation statement: The following information was validated with the patient. Medical History Abscess Cyclical vomiting Surgical History Tubal ligation status Social History Social History Household Members: Children Housing: House Alcohol intake: unknown Smoking Status: Never smoker Tobacco Type: Cigarette Cigarettes Per Day: 3 Use of substances other than those prescribed or required for medical reasons: Unknown Substance Use Type: Marijuana and Painkillers Advance Directives: Yes Advance Directives on File: Yes Advance Directives Date on File: 01/02/21 service: No Current occupational status: employed Physical Exam Vital Signs: Vital Signs: Last Vital Signs Temp 98.5 F 02/05/21 13:06 Pulse 69 02/05/21 13:06 Resp 16 02/05/21 13:06 BP 134/104 H 02/05/21 13:06 Pulse Ox 94 02/05/21 13:06 Body Mass Index 28.3 Const: General: cooperative and healthy appearing Orientation/consciousness: oriented to person, oriented to place, oriented to time and patient oriented x3 HENMT: Head: Yes normal to inspection Eyes: General: appearance normal, both eyes and all related structures Neck: Neck: Yes normal visual inspection Chest: Chest palpation & inspection: normal inspection of the chest Resp: Effort & Inspection: normal respiratory effort Auscultation: clear to auscultation bilaterally Cardio: Jugular venous distension: no JVD Rate: regular rate GI: Inspection: Yes normal to inspection Palpation (GI): Soft to palpation and nontender Skin: General skin exam: no rashes or lesions noted and elasticity normal Neuro: General: oriented to person, oriented to place, oriented to time, patient oriented x3 and gait normal Psych: Other: Anxious appearing Course Reevaluation(s) Reevaluation #1: Continue to vomit therefore will admit for observation she was ready been here yesterday Time: 16:01 MDM - Nausea/Vomiting/Diarrhea Lab Data Result diagrams: 02/05/21 10:36 02/05/21 10:36 Labs: Lab Results 02/05/21 02/05/21 02/05/21 Range/Units 10:36 10:36 13:53 WBC 7.1 (4.8-10.8) X10*3/uL RBC 4.08 L (4.20-5.50) X10*6/uL Hgb 10.2 L (12.0-16.0) g/dl Hct 33.5 L (37-47) % MCV 82.1 (80-98) fL MCH 25.0 L (27.0-33.0) pg MCHC 30.4 L (31.0-35.0) g/dl RDW 16.3 H (11.0-16.0) % Plt Count 208 (160-400) X10*3/uL MPV 12.3 (9.4-12.3) fL Immature Gran % (Auto) Cancelled Neut % (Auto) Cancelled Lymph % (Auto) Cancelled [place] % (Auto) Cancelled Eos % (Auto) Cancelled Baso % (Auto) Cancelled Lymph # (Auto) Cancelled [place] # (Auto) Cancelled Eos # (Auto) Cancelled Baso # (Auto) Cancelled Abs Immat Gran (auto) Cancelled Absolute Neuts (auto) Cancelled Absolute Nucleated RBC 0.000 (0.0-0.012) X10*3/uL Nucleated RBC % (auto) 0.0 (0.0-0.2) /100WBC Neutrophils % (Manual) 77 H (45-73) % Band Neutrophils % 4 (3-5) % Lymphocytes % (Manual) 14 L (20-40) % Monocytes % (Manual) 2 (2-11) % Eosinophils % (Manual) 2 (0-4) % Metamyelocytes % 1 % Abs Neuts (Manual) 5.8 (2.2-7.9) X10*3/uL Lymphocytes # (Manual) 1.0 (0.6-4.8) X10*3/uL Monocytes # (Manual) 0.1 (0.0-1.2) X10*3/uL Eosinophils # (Manual) 0.1 (0.0-0.8) X10*3/UL Metamyelocytes # 0.1 X10*3/uL Platelet Estimate NORMAL (NORMAL) Plt Morphology Comment NORMAL RBC Morphology NORMAL Sodium 137 (135-145) mmol/L Potassium 3.9 (3.3-5.1) mmol/L Chloride 106 (96-108) mmol/L Carbon Dioxide 21 L (22-29) mmol/L Anion Gap 14 (12-20) BUN 13 (9-16) mg/dL Creatinine 0.78 (0.5-1.4) mg/dL Estim Creat Clear Calc 92.1 Estimated GFR > 60 Random Glucose 110 (60-115) mg/dL Calcium 8.4 (8.4-10.2) mg/dL Total Bilirubin 0.4 (0.0-1.0) mg/dL AST 19 (5-31) U/L ALT 17 (0-31) U/L Alkaline Phosphatase 53 (39-117) U/L Total Protein 7.7 (6.5-8.0) g/dL Albumin 4.1 (3.5-5.0) g/dL Lipase 59 (8-78) U/L Beta HCG, Quant < 2 mIU/mL Coronavirus (PCR) NEGATIVE (Negative) Influenza Type A (PCR) NEGATIVE (Negative) Influenza Type B (PCR) NEGATIVE (Negative) RSV RNA Qual (PCR) NEGATIVE (Negative) Discharge Plan Discharge Clinical Impression: Vomiting Prescriptions: No Action cefuroxime axetil 500 mg tablet 500 mg PO BID 7 Days Qty: 14 RF: 0 oxycodone 5 mg capsule 5 mg PO TID PRN (Reason: pain, moderate) Qty: 5 RF: 0 ondansetron HCl [Zofran] 4 mg tablet 4 mg PO Q8H PRN (Reason: nausea and vomiting) Qty: 14 RF: 0 cefuroxime axetil 500 mg tablet 500 mg PO BID 7 Days Qty: 14 RF: 0 ondansetron HCl [Zofran] 4 mg tablet 4 mg PO Q8H PRN (Reason: nausea and vomiting) Qty: 14 RF: 0 acetaminophen [Tylenol Extra Strength] 500 mg tablet 1,000 mg PO QID PRN (Reason: fever or pain) Qty: 14 RF: 0 ibuprofen 800 mg tablet 800 mg PO Q8H PRN (Reason: pain) Qty: 14 RF: 0 oxycodone 5 mg tablet 5 mg PO BID PRN (Reason: pain) Qty: 5 RF: 0
[2021-02-05] MEDS: Morphine Sulfate 4 MG/ML CARTRIDGE IVPUSH (12:02)
[2021-02-05] MEDS: Metoclopramide HCl 10 MG/2 ML VIAL IVPUSH (13:40)
[2021-02-05] MEDS: diphenhydrAMINE HCL 50 MG/ML VIAL 25 MG IVPUSH (13:40)
[2021-02-05] MEDS: Famotidine/PF 20 MG/2 ML VIAL IVPUSH (14:07)
[2021-02-05 14:39] LABS: Influenza A PCR NEGATIVE (Negative); Influenza B PCR NEGATIVE (Negative); Resp Syncy Virus RNA Qual PCR NEGATIVE (Negative); SARS COV2 PCR INHOUSE NEGATIVE (Negative)
--- NOTE | 2021-02-05 15:23 | ECG_ITS ---
Test Reason : NAUSEA Blood Pressure : / mmHG Vent. Rate : 079 BPM Atrial Rate : 079 BPM P-R Int : 142 ms QRS Dur : 080 ms QT Int : 396 ms P-R-T Axes : 059 063 041 degrees QTc Int : 454 ms Normal sinus rhythm Possible Left atrial enlargement Left ventricular hypertrophy Abnormal ECG No significant changes when compared with the previous EKG of 31 dec 2020 Referred By: Beatris Ludwig Electronically Signed By:ALEENA JACQUES
--- NOTE | 2021-02-05 16:05 | P.HPHOSP_ITS ---
History of Present Illness Date of Service: 02/05/21 Chief Complaint: Nausea, vomiting, abdominal pain This is a 41-year-old female who presents to the emergency department with complaints of abdominal pain, nausea, vomiting. She was seen in the emergency department yesterday with similar complaints. She underwent a CT scan at that time which revealed no acute process. She was started on oral antibiotics for possible UTI and was discharged home. She returns to the emergency department today with ongoing generalized abdominal pain with radiation to her back, nausea and vomiting. She reports associated subjective fevers and chills. She denies any recent takeout food, diarrhea, travel, recent sick contacts. She denies any dysuria or polyuria. She does report this is the way that she felt last month when she was admitted for UTI/pyelonephritis. She was admitted to the hospital in December of this year with UTI, urine culture at that time grew Citrobacter. In the emergency department she was afebrile, lab work revealed no leukocytosis and kidney function was at baseline. She received multiple doses of pain medication and antiemetics in the emergency department but continued to feel nauseated and the decision was made to admit her for further management. Review of Systems Review of Systems: Yes all other systems are reviewed and are negative Constitutional: Constitutional: Reports chills and Reports fever(s) Cardiovascular: Cardiovascular: Denies chest pain Respiratory: Respiratory: Denies cough Gastrointestinal: Gastrointestinal: Reports abdominal pain and Denies diarrhea [facility] Medical History (Updated 02/05/21 @ 16:13 by RAMONE Armendariz) Abscess Cyclical vomiting Hypothyroidism Functional capacity: independent ambulation Family History (Updated 02/05/21 @ 16:13 by RAMONE Armendariz) Other Heart disease Surgical History Tubal ligation status Social History Household Members: Children Housing: House Alcohol intake: unknown Smoking Status: Never smoker Tobacco Type: Cigarette Cigarettes Per Day: 3 Use of substances other than those prescribed or required for medical reasons: Unknown Substance Use Type: Marijuana and Painkillers Advance Directives: Yes Advance Directives on File: Yes Advance Directives Date on File: 01/02/21 service: No Current occupational status: employed Meds Allergies Allergy/AdvReac Type Severity Reaction Status Date / Time amoxicillin [Amoxicillin] Allergy Intermediate HIVES Verified 02/04/21 07:59 tramadol AdvReac Intermediate SOB Verified 02/04/21 07:59 Active Medications: Current Medications Generic Name Dose Route Start Last Admin Trade Name Freq PRN Reason Stop Dose Admin Acetaminophen 650 mg 02/05/21 15:28 Acetaminophen 325 Mg Tablet PO Q6H PRN Pain, Mild (Pain Scale 1-3) Docusate Sodium 100 mg 02/05/21 21:00 Docusate Sodium 100 Mg Capsule PO BID [facility] Enoxaparin Sodium 40 mg 02/05/21 15:30 Enoxaparin Sodium 40 Mg/0.4 Ml Syringe SUBCUT Q24H VICTOR M Famotidine 20 mg 02/06/21 09:00 Famotidine/Pf 20 Mg/2 Ml Vial IVPUSH DAILY [facility] Sodium Chloride 1,000 mls @ 150 mls/hr 02/05/21 15:30 Ns IVCONT .Q6H40M [facility] Metoclopramide HCl 5 mg 02/05/21 15:33 Metoclopramide Hcl 10 Mg/2 Ml Vial IVPUSH Q6H PRN Nausea and Vomiting Ondansetron HCl 4 mg 02/05/21 15:28 Ondansetron Hcl 4 Mg/2 Ml Vial IVPUSH Q8H PRN Nausea and Vomiting Senna 17.2 mg 02/05/21 15:28 Sennosides 8.6 Mg Tablet PO BEDTIME PRN Constipation Sodium Chloride 3 ml 02/05/21 16:00 0.9 % Sodium Chloride Flush 3 Ml Syringe IVFLUSH QSHIFT [facility] Physical Exam Vital Signs and Narrative: Vital Signs: Last Vital Signs Temp 98.5 F 02/05/21 13:06 Pulse 69 02/05/21 13:06 Resp 16 02/05/21 13:06 BP 134/104 H 02/05/21 13:06 Pulse Ox 94 02/05/21 13:06 Body Mass Index 28.3 Const: Other: lying in bed, appears uncomfortable General: alert and awake Nutritional Appearance: well nourished Orientation/consciousness: patient oriented x3 HENMT: Head: Yes normocephalic and Yes atraumatic Eyes: Sclerae: sclerae normal Chest: Chest palpation & inspection: normal inspection of the chest Resp: Effort & Inspection: normal respiratory effort and no respiratory distress Auscultation: clear to auscultation bilaterally Cardio: Rate: regular rate Rhythm: regular rhythm GI: Other: non-tender, soft, non-distended, no guarding : Other: b/l CVAT Skin: General skin exam: no rashes or lesions noted Neuro: General: patient oriented x3 Cranial nerves: Yes CN's II-XII intact bilaterally and Yes Bilaterally intact EOM present Extrem: General: Yes normal to inspection Results Labs CBC and Chem 7: 02/05/21 10:36 02/05/21 10:36 Labs: Laboratory Results - last 24 hr 02/05/21 02/05/21 02/05/21 10:36 10:36 13:53 MCV 82.1 MCH 25.0 L MCHC 30.4 L RDW 16.3 H Plt Count 208 MPV 12.3 Immature Gran % (Auto) Cancelled Neut % (Auto) Cancelled Lymph % (Auto) Cancelled [place] % (Auto) Cancelled Eos % (Auto) Cancelled Baso % (Auto) Cancelled Lymph # (Auto) Cancelled [place] # (Auto) Cancelled Eos # (Auto) Cancelled Baso # (Auto) Cancelled Abs Immat Gran (auto) Cancelled Absolute Neuts (auto) Cancelled Absolute Nucleated RBC 0.000 Nucleated RBC % (auto) 0.0 Neutrophils % (Manual) 77 H Band Neutrophils % 4 Lymphocytes % (Manual) 14 L Monocytes % (Manual) 2 Eosinophils % (Manual) 2 Metamyelocytes % 1 Abs Neuts (Manual) 5.8 Lymphocytes # (Manual) 1.0 Monocytes # (Manual) 0.1 Eosinophils # (Manual) 0.1 Metamyelocytes # 0.1 Platelet Estimate NORMAL Plt Morphology Comment NORMAL RBC Morphology NORMAL Anion Gap 14 Estim Creat Clear Calc 92.1 Estimated GFR > 60 Random Glucose 110 Calcium 8.4 Total Bilirubin 0.4 AST 19 ALT 17 Alkaline Phosphatase 53 Total Protein 7.7 Albumin 4.1 Lipase 59 Beta HCG, Quant < 2 Coronavirus (PCR) NEGATIVE Influenza Type A (PCR) NEGATIVE Influenza Type B (PCR) NEGATIVE RSV RNA Qual (PCR) NEGATIVE Assessment and Plan (1) Complicated UTI (urinary tract infection): Status: Acute This is a 41-year-old female with a history of hypothyroidism, history of UTI, seen in the emergency department yesterday with abdominal pain, nausea, vomiting who returns with the same found to have positive urine culture Complicated UTI No evidence of sepsis Urine culture from 02/04 growing Enterococcus/Streptococcus sp -will start Vancomycin given PCN allergy -follow final UCx sensitivities -will obtain BCx -ID consult N/V likely r/t above sometimes smokes marijuana, but not regularly CT from 02/04 with no acute abnormalities -treat symptomatically with IVF, antiemetics, pain control -advance diet as tolerated DVT prophylaxis-Lovenox Code status-full code This case was discussed with Dr. Cash
--- NOTE | 2021-02-05 16:14 | PM.EVENT ---
Event Note Date of Service: 02/05/21 Event Note: Admission note the patient was seen and evaluated with RAMONE Luque. I agree with her note, assessment and plan with the following. Summary, 41 years old lady who presents to the hospital complaining of intractable nausea and vomiting for the last 2 days. She is outpatient treatment. Urine culture growing submit Enterococcus. Admitted further evaluation and treatment. Intractable nausea and vomiting Urinary tract infection, possible pyelonephritis CT scan negative any findings, still CVA tenderness Start vancomycin for possible strep or Enterococcus infection to get ID evaluation Use Zofran for nausea Keep NPO for tonight Rest of evaluations by PA note.
[2021-02-05] MEDS: Morphine Sulfate 2 MG/ML CARTRIDGE IVPUSH ×2 (17:16→21:48)
[2021-02-05] MEDS: 0.9 % Sodium Chloride 1,000 ML 150 ML IVCONT (17:20)
[2021-02-05] MEDS: Enoxaparin Sodium 40 MG/0.4 ML SYRINGE SUBCUT (17:24)
[2021-02-05] MEDS: vancomycin HCL 1,000 MG in 0.9 % Sodium Chloride 250 ML 270 MG IV (17:25)
[2021-02-05] MEDS: 0.9 % Sodium Chloride Flush 3 ML SYRINGE IVFLUSH (17:28)
[2021-02-05] MEDS: Docusate Sodium 100 MG CAPSULE PO (20:05)
[2021-02-05] MEDS: Metoclopramide HCl 10 MG/2 ML VIAL 5 MG IVPUSH (21:25)
[2021-02-06] MEDS: Morphine Sulfate 2 MG/ML CARTRIDGE IVPUSH ×5 (03:39→22:57)
[2021-02-06] MEDS: 0.9 % Sodium Chloride 1,000 ML 150 ML IVCONT ×3 (03:39→22:53)
[2021-02-06 04:00] VITALS: BP 148/88; PULSE 86; RESP 16; TEMP 36.9; O2SAT 93
[2021-02-06] MEDS: ondansetron HCL 4 MG/2 ML VIAL IVPUSH ×2 (04:41→17:55)
[2021-02-06] MEDS: vancomycin HCL 1,000 MG in 0.9 % Sodium Chloride 250 ML 270 MG IV ×2 (04:41→17:48)
[2021-02-06 07:31] LABS: Anion Gap 13 (12-20); Blood Urea Nitrogen 8 mg/dL (9-16); Calcium 7.9 mg/dL (8.4-10.2); Carbon Dioxide 19 mmol/L (22-29); Chloride 107 mmol/L (96-108); Creatinine Clr Calc Pharmacy 104.1; Estimated Glomerular Filt Rate > 60; Glucose Random 79 mg/dL (60-115); Potassium 3.4 mmol/L (3.3-5.1); Sodium 136 mmol/L (135-145)
[2021-02-06 07:35] VITALS: BP 145/85; PULSE 84; RESP 18; TEMP 36.1; O2SAT 100
[2021-02-06] MEDS: Docusate Sodium 100 MG CAPSULE PO ×2 (08:11→20:35)
[2021-02-06] MEDS: Famotidine/PF 20 MG/2 ML VIAL IVPUSH (08:11)
[2021-02-06] MEDS: Metoclopramide HCl 10 MG/2 ML VIAL 5 MG IVPUSH ×2 (08:18→20:33)
--- NOTE | 2021-02-06 08:46 | MHC.CM.PN ---
PATIENT IS FULLY INDEPENDENT. CAR IS IN [facility] LOT. NO DME OR [facility] SERVICES. CASE MANAGEMENT FOLLOWING FOR ANY DISCHARGE NEEDS. GRACIA 02/05 IN CHART.
--- NOTE | 2021-02-06 11:29 | P.PNIM_ITS ---
Subjective Subjective Date of Service: 02/06/21 <Sruthi Jimenez NP - Last Filed: 02/06/21 11:55> 02/06/21 <Saravanan Conley MD - Last Filed: 02/06/21 16:57> Interval History: Follow up anaya, still with CVA tenderness and lower abdominal pain. Feels hungry. <Sruthi Jimenez NP - Last Filed: 02/06/21 11:55> Physical Exam Vital Signs: Vital Signs: Last Vital Signs Temp 97 F 02/06/21 07:35 Pulse 84 02/06/21 07:35 Resp 18 02/06/21 07:35 BP 145/85 H 02/06/21 07:35 Pulse Ox 100 02/06/21 07:35 Body Mass Index 28.3 <Sruthi Jimenez NP - Last Filed: 02/06/21 11:55> Appearing in no acute distress head is normocephalic atraumatic eyes pupils are PERRLA sclera is anicteric mouth throat mucous membranes are intact and moist neck is supple no lymphadenopathy, no JVD noted lung sounds are clear to auscultation heart regular rate rhythm, clear S1, S2 positive bowel sounds, lower abd tenderness , cva tenderness neuro patient is alert x3, no focal deficits <Sruthi Jimenez NP - Last Filed: 02/06/21 11:55> Objective Data Current Medications Generic Name Dose Route Start Last Admin Trade Name Freq PRN Reason Stop Dose Admin Acetaminophen 650 mg 02/05/21 15:28 Acetaminophen 325 Mg Tablet PO Q6H PRN Pain, Mild (Pain Scale 1-3) Docusate Sodium 100 mg 02/05/21 21:00 02/06/21 08:11 Docusate Sodium 100 Mg Capsule PO 100 mg BID VICTOR M Administration Enoxaparin Sodium 40 mg 02/05/21 15:30 02/05/21 17:24 Enoxaparin Sodium 40 Mg/0.4 Ml Syringe SUBCUT 40 mg Q24H VICTOR M Administration Famotidine 20 mg 02/06/21 09:00 02/06/21 08:11 Famotidine/Pf 20 Mg/2 Ml Vial IVPUSH 20 mg DAILY VICTOR M Administration Sodium Chloride 1,000 mls @ 150 mls/hr 02/05/21 15:30 02/06/21 05:43 Ns IVCONT Infused .Q6H40M VICTOR M Infusion Vancomycin HCl 1,000 mg/ 270 mls @ 270 mls/hr 02/05/21 18:00 02/06/21 05:44 Sodium Chloride IV Infused Q12H VICTOR M Infusion Metoclopramide HCl 5 mg 02/05/21 15:33 02/06/21 08:18 Metoclopramide Hcl 10 Mg/2 Ml Vial IVPUSH 5 mg Q6H PRN Administration Nausea and Vomiting Morphine Sulfate 2 mg 02/05/21 16:11 02/06/21 08:14 Morphine Sulfate 2 Mg/Ml Cartridge IVPUSH 2 mg Q4H PRN Administration Pain, Severe (Pain Scale 7-10) Ondansetron HCl 4 mg 02/05/21 15:28 02/06/21 04:41 Ondansetron Hcl 4 Mg/2 Ml Vial IVPUSH 4 mg Q8H PRN Administration Nausea and Vomiting Pharmacy Consult 1 each 02/05/21 16:04 Consult Rx Vancomycin Dosing MISCELLANE DAILY PRN Consult order Senna 17.2 mg 02/05/21 15:28 Sennosides 8.6 Mg Tablet PO BEDTIME PRN Constipation Sodium Chloride 3 ml 02/05/21 16:00 02/06/21 07:58 0.9 % Sodium Chloride Flush 3 Ml Syringe IVFLUSH Not Given QSHIFT COUNT INCLUDES THE [facility] <Sruthi Jimenez NP - Last Filed: 02/06/21 11:55> Labs CBC & Chem 7: : 02/05/21 10:36 02/06/21 06:42 <Sruthi Jimenez NP - Last Filed: 02/06/21 11:55> Assessment and Plan (1) Pyelonephritis: Status: Acute <Sruthi Jimenez NP - Last Filed: 02/06/21 11:55> Assessment and Plan: 41-year-old female with a history of hypothyroidism, history of UTI, seen in the emergency department yesterday with abdominal pain, nausea, vomiting who returns with the same found to have positive urine culture Pyelonephritis. Complicated UTI. Urine culture from 02/04 growing Enterococcus faecalis -change vanco to ampicillin -follow final UCx sensitivities -will obtain BCx -ID consult -pain control, antiemetics Attending: Dr. Conley <Sruthi Jimenze NP - Last Filed: 02/06/21 11:55> Patient seen and examined independently and I was present during voss portion of E/M service. Agree with Dasha Jimenez NP's history, physical, assessment, and plan. Pyelonephritis Urince C&S showing E. Faecalis -- sensitive to amp; changed from vancomyin blood cx pending at this time pain improved will need outpatient urology f/u given recurrent UTI/Pyelonephritis Intractable N/V likely from above start clears and advance as tolerated <Saravanan Conley MD - Last Filed: 02/06/21 16:57>
[2021-02-06 12:00] VITALS: BP 164/96; PULSE 80; RESP 18; TEMP 36.8; O2SAT 100
[2021-02-06] MEDS: Ampicillin Sodium 2 GM in 0.9 % Sodium Chloride 100 ML IV ×2 (13:36→19:27)
[2021-02-06] MEDS: Enoxaparin Sodium 40 MG/0.4 ML SYRINGE SUBCUT (14:52)
[2021-02-06 15:23] VITALS: BP 124/78; PULSE 104; RESP 19; TEMP 36.4; O2SAT 98
--- NOTE | 2021-02-06 16:06 | MHC.CM.PN ---
PER HOSPITALIST ROUNDS, NO PLAN FOR DISCHARGE TODAY. PLAN WILL BE HOME WITH NO SERVICES.
[2021-02-06 19:19] VITALS: BP 151/96; PULSE 81; RESP 20; TEMP 36.7; O2SAT 100
--- NOTE | 2021-02-06 20:57 | P.CNID_ITS ---
History of Present Illness Data of Consult Service Date: 02/06/21 Requesting physician: Saravanan Conley Primary Care Provider: Navi Real MD HPI Reason for consult: nausea and vomiting She presents to hospital with nausea and vomiting for three days. She has subjective chills and complaints of abdominal pain 9/10 Abdominal pain is diffuse and not focal except in back She denies dysuria or vaginal discharge No one else is ill. Review of Systems Review of Systems: Yes all other systems are reviewed and are negative PMFSH Past Medical History Medical History (Updated 02/07/21 @ 13:00 by Susan Calloway MD) Abscess Cyclical vomiting Hidradenitis suppurativa Hypothyroidism Functional capacity: independent ambulation Family History Family History Other Heart disease Surgical History Surgical History Tubal ligation status Social History Social History Household Members: Children Housing: House Do you presently have visiting nurse or other home services: No Alcohol intake: unknown Smoking Status: Current every day smoker Tobacco Type: Cigarette Cigarettes Per Day: 3 Years Smoked: 20 Smoked in Last 30 Days: Yes Patient Interested in Nicotine Replacement: No Patient Given Instructions on How to Stop Smoking: Yes Date Education Initiated: 02/05/21 Second Hand Smoke Exposure: No Use of substances other than those prescribed or required for medical reasons: Yes Substance Use Type: Marijuana Substance Use Frequency: Occasionally Last Used Substance: Days (ago) Last Used Substance Other:: 3-4 days ago Currently Displaying Signs/Symptoms of Drug Intoxication Withdrawal: No Have you been hit, kicked, punched, or otherwise hurt by someone within the past year? If so, by whom?: No Do you feel safe in your current relationship?: Yes Is there a partner from a previous relationship who is making you feel unsafe now?: No Are you made to feel afraid or neglected: No Spiritual Healthcare Practices: worship Advance Directives: Yes Advance Directives on File: Yes Advance Directives Date on File: 01/02/21 Do you have thoughts of harming others: None Do you have a plan to hurt others: No Plan Recently lost weight without trying: No service: No Current occupational status: employed Meds Allergies Allergy/AdvReac Type Severity Reaction Status Date / Time amoxicillin [Amoxicillin] Allergy Intermediate HIVES Verified 02/04/21 07:59 tramadol AdvReac Intermediate SOB Verified 02/04/21 07:59 Active Medications: Current Medications Generic Name Dose Route Start Last Admin Trade Name Freq PRN Reason Stop Dose Admin Acetaminophen 650 mg 02/05/21 15:28 Acetaminophen 325 Mg Tablet PO Q6H PRN Pain, Mild (Pain Scale 1-3) Docusate Sodium 100 mg 02/05/21 21:00 02/06/21 20:35 Docusate Sodium 100 Mg Capsule PO 100 mg BID VICTOR M Administration Enoxaparin Sodium 40 mg 02/05/21 15:30 02/06/21 14:52 Enoxaparin Sodium 40 Mg/0.4 Ml Syringe SUBCUT 40 mg Q24H VICTOR M Administration Famotidine 20 mg 02/06/21 09:00 02/06/21 08:11 Famotidine/Pf 20 Mg/2 Ml Vial IVPUSH 20 mg DAILY VICTOR M Administration Sodium Chloride 1,000 mls @ 150 mls/hr 02/05/21 15:30 02/06/21 13:39 Ns IVCONT 150 mls/hr .Q6H40M VICTOR M Administration Vancomycin HCl 1,000 mg/ 270 mls @ 270 mls/hr 02/05/21 18:00 02/06/21 19:25 Sodium Chloride IV Infused Q12H VICTOR M Infusion Ampicillin Sodium 2 gm/ Sodium 100 mls @ 100 mls/hr 02/06/21 12:00 02/06/21 20:50 Chloride IV Infused Q6H VICTOR M Infusion Metoclopramide HCl 5 mg 02/05/21 15:33 02/06/21 20:33 Metoclopramide Hcl 10 Mg/2 Ml Vial IVPUSH 5 mg Q6H PRN Administration Nausea and Vomiting Morphine Sulfate 2 mg 02/05/21 16:11 02/06/21 17:53 Morphine Sulfate 2 Mg/Ml Cartridge IVPUSH 2 mg Q4H PRN Administration Pain, Severe (Pain Scale 7-10) Ondansetron HCl 4 mg 02/05/21 15:28 02/06/21 17:55 Ondansetron Hcl 4 Mg/2 Ml Vial IVPUSH 4 mg Q8H PRN Administration Nausea and Vomiting Pharmacy Consult 1 each 02/05/21 16:04 Consult Rx Vancomycin Dosing MISCELLANE DAILY PRN Consult order Senna 17.2 mg 02/05/21 15:28 Sennosides 8.6 Mg Tablet PO BEDTIME PRN Constipation Sodium Chloride 3 ml 02/05/21 16:00 02/06/21 14:54 0.9 % Sodium Chloride Flush 3 Ml Syringe IVFLUSH Not Given QSHIFT VICTOR M Physical Exam Vital Signs: Vital Signs: Last Vital Signs Temp 98.0 F 02/06/21 19:19 Pulse 81 02/06/21 19:19 Resp 20 02/06/21 19:19 BP 151/96 H 02/06/21 19:19 Pulse Ox 100 02/06/21 19:19 Body Mass Index 28.3 Const: General: cooperative Orientation/consciousness: patient oriented x3 HENMT: Head: Yes normal to inspection Mouth: Normal oral and palatal mucosa present Eyes: General: appearance normal, both eyes and all related structures Resp: Effort & Inspection: normal respiratory effort Cardio: Rate: regular rate Rhythm: regular rhythm GI: Palpation (GI): Soft to palpation and Tenderness to palpation present (GI) : General: Yes no CVA tenderness Back/Spine/Pelvis: Back: no CVA tenderness Sacrum: ecchymosis Skin: General skin exam: no rashes or lesions noted Neuro: General: patient oriented x3 Extrem: General: Yes normal to inspection Results Labs CBC & Chem 7: 02/07/21 04:42 02/07/21 04:42 Labs: BMP 02/06/21 06:42 Sodium 136 Potassium 3.4 Chloride 107 Carbon Dioxide 19 L BUN 8 L Creatinine 0.69 Calcium 7.9 L Microbiology Microbiology Results: Microbiology 02/05/21 16:57 Blood - Venous Blood Culture - Preliminary No growth after 24 hours. 02/05/21 16:57 Blood - Venous Blood Culture - Preliminary No growth after 24 hours. 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
[2021-02-06] MEDS: levoFLOXacin/D5W 750 MG/150 ML PIGGYBACK 100 MG IV (22:47)
[2021-02-07] VITALS: BP 143/83; PULSE 81; RESP 18; TEMP 37.2; O2SAT 95
[2021-02-07] MEDS: ondansetron HCL 4 MG/2 ML VIAL IVPUSH (02:16)
[2021-02-07] MEDS: 0.9 % Sodium Chloride 1,000 ML 150 ML IVCONT (02:18)
[2021-02-07 03:07] VITALS: RESP 16
[2021-02-07] MEDS: Metoclopramide HCl 10 MG/2 ML VIAL 5 MG IVPUSH ×3 (04:04→20:09)
[2021-02-07] MEDS: Morphine Sulfate 2 MG/ML CARTRIDGE IVPUSH ×5 (04:12→22:36)
[2021-02-07 04:52] LABS: Hematocrit 31.8 % (37-47); Hemoglobin 9.8 g/dl (12.0-16.0); Mean Corpuscular HGB Conc 30.8 g/dl (31.0-35.0); Mean Corpuscular Hemoglobin 24.4 pg (27.0-33.0); Mean Corpuscular Volume 79.3 fL (80-98); Mean Platelet Volume 12.1 fL (9.4-12.3); Platelet Count 187 X10*3/uL (160-400); Red Blood Count 4.01 X10*6/uL (4.20-5.50); Red Cell Distribution Width 15.9 % (11.0-16.0); WBC ABN SCTR FOR CBC 1
[2021-02-07 05:13] LABS: White Blood Count 7.6 X10*3/uL (4.8-10.8)
[2021-02-07 05:15] LABS: Atypical Lymph Absolute Manual 0.1 x10*3/uL; Atypical Lymphs Percent Manual 1 % (0-6); Band Neutrophils Percent 1 % (3-5); Lymphocytes Absolute Manual 1.4 X10*3/uL (0.6-4.8); Lymphocytes Percent Manual 18 % (20-40); Monocytes Absolute Manual 0.4 X10*3/uL (0.0-1.2); Monocytes Percent Manual 5 % (2-11); Neutrophils Absolute Manual 5.8 X10*3/uL (2.2-7.9); Neutrophils Percent Manual 75 % (45-73); RBC Morphology NOTED
[2021-02-07 05:16] LABS: Anion Gap 14 (12-20); Blood Urea Nitrogen 5 mg/dL (9-16); Calcium 8.2 mg/dL (8.4-10.2); Carbon Dioxide 20 mmol/L (22-29); Chloride 102 mmol/L (96-108); Creatinine Clr Calc Pharmacy 108.9; Estimated Glomerular Filt Rate > 60; Glucose Random 102 mg/dL (60-115); Hypochromasia 1+ (5-14) /OIF; Large Platelet PRESENT; Microcytosis 1+ (5-14) /OIF; Platelet Estimate NORMAL (NORMAL); Platelet Morphology Comment NOTED; Potassium 3.2 mmol/L (3.3-5.1); Sodium 133 mmol/L (135-145)
[2021-02-07 05:26] LABS: Vancomycin Trough 4.3 mcg/mL (10.0-20.0)
[2021-02-07 08:00] VITALS: BP 174/97; PULSE 90; RESP 19; TEMP 36.6; O2SAT 97
[2021-02-07] MEDS: Potassium Chloride Packet 20 MEQ PACKET 40 MEQ PO (09:30)
[2021-02-07] MEDS: Docusate Sodium 100 MG CAPSULE PO ×2 (09:30→20:09)
[2021-02-07] MEDS: Acetaminophen 325 MG TABLET 650 MG PO (09:30)
[2021-02-07] MEDS: 0.9 % Sodium Chloride Flush 3 ML SYRINGE IVFLUSH (09:30)
--- NOTE | 2021-02-07 11:16 | HO.PM.IMPN ---
Subjective Subjective Date of Service: 02/07/21 Interval History: Follow up pyelonephritis. Still with lower abdominal pain and nausea. Physical Exam Vital Signs: Vital Signs: Last Vital Signs Temp 97.8 F 02/07/21 08:00 Pulse 90 02/07/21 08:00 Resp 19 02/07/21 08:00 BP 174/97 H 02/07/21 08:00 Pulse Ox 97 02/07/21 08:00 Body Mass Index 28.3 Appearing mild distress lung sounds are clear to auscultation heart regular rate rhythm, clear S1, S2 positive bowel sounds, abdomen is tender to lower quadrants neuro patient is alert x3, no focal deficits Objective Data Current Medications Generic Name Dose Route Start Last Admin Trade Name Freq PRN Reason Stop Dose Admin Acetaminophen 650 mg 02/05/21 15:28 02/07/21 09:30 Acetaminophen 325 Mg Tablet PO 650 mg Q6H PRN Administration Pain, Mild (Pain Scale 1-3) Docusate Sodium 100 mg 02/05/21 21:00 02/07/21 09:30 Docusate Sodium 100 Mg Capsule PO 100 mg BID VICTOR M Administration Enoxaparin Sodium 40 mg 02/05/21 15:30 02/06/21 14:52 Enoxaparin Sodium 40 Mg/0.4 Ml Syringe SUBCUT 40 mg Q24H VICTOR M Administration Levofloxacin 750 mg in 150 mls @ 100 mls/hr 02/06/21 21:15 02/07/21 00:40 Levaquin IV Infused Q24H VICTOR M Infusion Dextrose/Sodium Chloride 1,000 mls @ 100 mls/hr 02/07/21 10:45 D51/2ns IVCONT .Q10H VICTOR M Lidocaine/Diphenhydr/Alum/Mg/Simeth 10 ml 02/07/21 09:22 Mag&Al/Sim/Diphenhyd/Lidocaine 10 Ml Oral.Susp PO Q6H PRN abdominal pain Protocol Metoclopramide HCl 5 mg 02/05/21 15:33 02/07/21 04:04 Metoclopramide Hcl 10 Mg/2 Ml Vial IVPUSH 5 mg Q6H PRN Administration Nausea and Vomiting Morphine Sulfate 2 mg 02/05/21 16:11 02/07/21 09:29 Morphine Sulfate 2 Mg/Ml Cartridge IVPUSH 2 mg Q4H PRN Administration Pain, Severe (Pain Scale 7-10) Ondansetron HCl 4 mg 02/05/21 15:28 02/07/21 02:16 Ondansetron Hcl 4 Mg/2 Ml Vial IVPUSH 4 mg Q8H PRN Administration Nausea and Vomiting Pantoprazole Sodium 40 mg 02/07/21 10:45 Pantoprazole Sodium 40 Mg/10 Ml Vial IVPUSH DAILY@0630 [facility] Pharmacy Consult 1 each 02/05/21 16:04 Consult Rx Vancomycin Dosing MISCELLANE DAILY PRN Consult order Senna 17.2 mg 02/05/21 15:28 Sennosides 8.6 Mg Tablet PO BEDTIME PRN Constipation Sodium Chloride 3 ml 02/05/21 16:00 02/07/21 09:30 0.9 % Sodium Chloride Flush 3 Ml Syringe IVFLUSH 3 ml QSHIFT [facility] Administration Labs CBC & Chem 7: 02/07/21 04:42 02/07/21 04:42 Microbiology Microbiology Results: Microbiology 02/05/21 16:57 Blood - Venous Blood Culture - Preliminary No growth after 24 hours. 02/05/21 16:57 Blood - Venous Blood Culture - Preliminary No growth after 24 hours. Assessment and Plan (1) Pyelonephritis: Status: Acute Assessment and Plan: 41-year-old female with a history of hypothyroidism, history of UTI, seen in the emergency department yesterday with abdominal pain, nausea, vomiting who returns with the same found to have positive urine culture Pyelonephritis. Complicated UTI. Urine culture from 02/04 growing Enterococcus faecalis -blood cx negative -ID following rec change abx to Levaquin from ampicillin -pain control, antiemetics Abdominal pain. with nausea and vomiting. -Consult HISTORY CARD CLERK to rule PID or other gynecological issue -add PPI -change diet to clear liquid, add D5NS -consider Gastroenterology consultation gynecological issues ruled out Hypokalemia. Mild -Kayex Hyponatremia. Mild,likely from vomiting -D5NS -Trend CBC Attending: Dr. Conley
[2021-02-07] MEDS: Dextrose 5 % and 0.45 % NaCl 1,000 ML 100 ML IVCONT (11:37)
[2021-02-07] MEDS: Pantoprazole Sodium 40 MG/10 ML VIAL IVPUSH (11:37)
[2021-02-07] MEDS: Mag&Al/Sim/Diphenhyd/Lidocaine 10 ML ORAL.SUSP PO ×2 (11:45→20:09)
[2021-02-07 12:00] VITALS: BP 133/82; PULSE 83; RESP 16; TEMP 37; O2SAT 97
--- NOTE | 2021-02-07 12:54 | P.CONOB_ITS ---
FOOD SERVICE TECHNICIAN - CN: HPI Data of Consult Consult date: 02/07/21 Requesting Physician: Saravanan Conley MD Primary Care Provider: Navi Real MD Consult Narrative Narrative: Idalims Handy I is a 41 year old female currently admitted to the hospital with intractable nausea/vomiting and generalized abdominal pain, suspected pyelonephritis. She reports the onset of her symptoms on Saturday, four days ago. She reports the onset of pain after waking up and urinating. Wi thin 30 minutes of pain onset, she became nauseated and experienced profuse vomiting. She called out of work and presented to the ER. She was discharged home later that day. She was able to sleep that night and despite not feeling improved, went to work the next morning. However, once at work, she started vomiting again and left work to present ot the ER. At that time, she was admitted. She reports that since the onset of her pain, it has become worse. The pain is not sharp and is constantly present. She reports difficulty describing the pain but when asked, says that it is similar to menstrual cramps but more intense. The intensity is constant. The pain is located from her upper abdomen down to her pelvis and does not radiate elsewhere. She has had this pain before, with her prior episodes of pyelonephritis. She is currently sexually active with a monogamous male partner. She has a remote history of chlamydia in adolescence and gonorrhea five years ago after her partner at that time cheated on her. She was treated in both events. She denies any previous history of PID. She does not currently have abnormal discharge, vaginal itching or irritation. She denies dyspareunia. cc:: CC: Saravanan Conley MD WORM SORTER - Review of Systems Review of Systems ROS Unobtainable: All systems reviewed & are unremarkable except as noted in HPI and below OB PMFSH Past Medical History Medical History (Updated 02/07/21 @ 13:00 by Susan Calloway MD) Abscess Cyclical vomiting Hidradenitis suppurativa Hypothyroidism Functional capacity: independent ambulation Family History Family History Other Heart disease Surgical History Surgical History Tubal ligation status Social History Social History Household Members: Children Housing: House Do you presently have visiting nurse or other home services: No Alcohol intake: unknown Smoking Status: Current every day smoker Tobacco Type: Cigarette Cigarettes Per Day: 3 Years Smoked: 20 Smoked in Last 30 Days: Yes Patient Interested in Nicotine Replacement: No Patient Given Instructions on How to Stop Smoking: Yes Date Education Initiated: 02/05/21 Second Hand Smoke Exposure: No Use of substances other than those prescribed or required for medical reasons: Yes Substance Use Type: Marijuana Substance Use Frequency: Occasionally Last Used Substance: Days (ago) Last Used Substance Other:: 3-4 days ago Currently Displaying Signs/Symptoms of Drug Intoxication Withdrawal: No Have you been hit, kicked, punched, or otherwise hurt by someone within the past year? If so, by whom?: No Do you feel safe in your current relationship?: Yes Is there a partner from a previous relationship who is making you feel unsafe now?: No Are you made to feel afraid or neglected: No Spiritual Healthcare Practices: uatsdin Advance Directives: Yes Advance Directives on File: Yes Advance Directives Date on File: 01/02/21 Do you have thoughts of harming others: None Do you have a plan to hurt others: No Plan Recently lost weight without trying: No service: No Current occupational status: employed Meds Allergies Allergy/AdvReac Type Severity Reaction Status Date / Time amoxicillin [Amoxicillin] Allergy Intermediate HIVES Verified 02/04/21 07:59 tramadol AdvReac Intermediate SOB Verified 02/04/21 07:59 Active Medications: Current Medications Generic Name Dose Route Start Last Admin Trade Name Joseq PRN Reason Stop Dose Admin Acetaminophen 650 mg 02/05/21 15:28 02/07/21 09:30 Acetaminophen 325 Mg Tablet PO 650 mg Q6H PRN Administration Pain, Mild (Pain Scale 1-3) Docusate Sodium 100 mg 02/05/21 21:00 02/07/21 09:30 Docusate Sodium 100 Mg Capsule PO 100 mg BID VICTOR M Administration Enoxaparin Sodium 40 mg 02/05/21 15:30 02/06/21 14:52 Enoxaparin Sodium 40 Mg/0.4 Ml Syringe SUBCUT 40 mg Q24H VICTOR M Administration Levofloxacin 750 mg in 150 mls @ 100 mls/hr 02/06/21 21:15 02/07/21 00:40 Levaquin IV Infused Q24H VICTOR M Infusion Dextrose/Sodium Chloride 1,000 mls @ 100 mls/hr 02/07/21 10:45 02/07/21 11:37 D51/2ns IVCONT 100 mls/hr .Q10H VICTOR M Administration Lidocaine/Diphenhydr/Alum/Mg/Simeth 10 ml 02/07/21 09:22 02/07/21 11:45 Mag&Al/Sim/Diphenhyd/Lidocaine 10 Ml Oral.Susp PO 10 ml Q6H PRN Administration abdominal pain Protocol Metoclopramide HCl 5 mg 02/05/21 15:33 02/07/21 11:44 Metoclopramide Hcl 10 Mg/2 Ml Vial IVPUSH 5 mg Q6H PRN Administration Nausea and Vomiting Morphine Sulfate 2 mg 02/05/21 16:11 02/07/21 09:29 Morphine Sulfate 2 Mg/Ml Cartridge IVPUSH 2 mg Q4H PRN Administration Pain, Severe (Pain Scale 7-10) Ondansetron HCl 4 mg 02/05/21 15:28 02/07/21 02:16 Ondansetron Hcl 4 Mg/2 Ml Vial IVPUSH 4 mg Q8H PRN Administration Nausea and Vomiting Pantoprazole Sodium 40 mg 02/07/21 10:45 02/07/21 11:37 Pantoprazole Sodium 40 Mg/10 Ml Vial IVPUSH 40 mg DAILY@0630 [facility] Administration Pharmacy Consult 1 each 02/05/21 16:04 Consult Rx Vancomycin Dosing MISCELLANE DAILY PRN Consult order Senna 17.2 mg 02/05/21 15:28 Sennosides 8.6 Mg Tablet PO BEDTIME PRN Constipation Sodium Chloride 3 ml 02/05/21 16:00 02/07/21 09:30 0.9 % Sodium Chloride Flush 3 Ml Syringe IVFLUSH 3 ml QSHIFT [facility] Administration FOOD SERVICE TECHNICIAN Physical Exam Vitals Vital signs: Temp Pulse Resp BP Pulse Ox 97.8 F 90 19 174/97 H 97 02/07/21 08:00 02/07/21 08:00 02/07/21 08:00 02/07/21 08:00 02/07/21 08:00 Body Mass Index 28.3 Books Salesperson: Present Constitutional General Appearance: Well-nourished, Well-developed and Overweight Lungs Respiratory Effort: No intercostal retractions and No accessory muscle usage Female Genitalia (Pelvic) Bladder/Urethra: Normal meatus Vulva: No lesions and No masses Vagina: No erythema and Normal discharge Cervix: Grossly normal Uterus: Tender FOOD SERVICE TECHNICIAN - Results Labs CBC & Chem 7: 02/07/21 04:42 02/07/21 04:42 Labs: Short CBC 02/07/21 Range/Units 04:42 WBC 7.6 (4.8-10.8) X10*3/uL Hgb 9.8 L (12.0-16.0) g/dl Hct 31.8 L (37-47) % Plt Count 187 (160-400) X10*3/uL BMP 02/07/21 04:42 Sodium 133 L Potassium 3.2 L Chloride 102 Carbon Dioxide 20 L BUN 5 L Creatinine 0.66 Calcium 8.2 L Assessment and Plan (1) Abdominal pain: Status: Inactive Ms. Handy reports having had this same pain in the past with her previous episodes of pyelonephritis. Given the location of pain in her upper abdomen, and her pain being consistent with pyelo in the past, PID seems an unlikely cause of her pain. She exhibits tenderness on bimanual exam, but no true cervical motion tenderness. I reviewed with Ms. Handy that my suspicion for PID is low; however, she is currently hospitalized and has not had improvement in her pain. I think treating for PID will not harm her and I would rather err on the side of over treating. She is amenable to this. I ordered a pelvic US to rule out tubo-ovarian abscess, which would require IV antibiotics. If pelvic US is normal, will recommend outpatient management of PID (as she would not meet criteria for parenteral management) with one dose of ceftriaxone and two weeks of oral doxycycline and metronidazole. Will follow up US results and document further recommendations.
[2021-02-07] MEDS: Enoxaparin Sodium 40 MG/0.4 ML SYRINGE SUBCUT (14:22)
[2021-02-07 15:15] VITALS: BP 168/80; PULSE 79; RESP 20; TEMP 36.8; O2SAT 98
[2021-02-07 16:40] LABS: CT PCR NOT DETECTED (Not Detect.); NG PCR NOT DETECTED (Not Detect.)
[2021-02-07 20:00] VITALS: BP 154/88; PULSE 78; RESP 20; TEMP 37; O2SAT 98
[2021-02-07] MEDS: levoFLOXacin/D5W 750 MG/150 ML PIGGYBACK 100 MG IV (20:08)
[2021-02-08] VITALS: BP 137/66; PULSE 80; RESP 16; TEMP 36.4; O2SAT 100
[2021-02-08] MEDS: Metoclopramide HCl 10 MG/2 ML VIAL 5 MG IVPUSH ×3 (01:30→14:00)
[2021-02-08] MEDS: Morphine Sulfate 2 MG/ML CARTRIDGE IVPUSH ×5 (02:33→21:18)
[2021-02-08] MEDS: Dextrose 5 % and 0.45 % NaCl 1,000 ML 100 ML IVCONT (05:01)
[2021-02-08] MEDS: Pantoprazole Sodium 40 MG/10 ML VIAL IVPUSH (05:37)
[2021-02-08 06:36] LABS: MANUAL DIFF FLAG NO
[2021-02-08 06:50] LABS: Basophils Percent Auto 0.1 % (0-2); Eosinophils Percent Auto 0.1 % (0-4); Hemoglobin 9.9 g/dl (12.0-16.0); Imm Gran Abs Auto 0.02 X10*3/uL (0.00-0.03); Imm Gran Pct Auto 0.3 % (0.0-0.4); Lymphocytes Absolute Auto 1.8 X10*3/uL (1.2-4.9); Lymphocytes Percent Auto 25.3 % (20-40); Mean Corpuscular HGB Conc 30.9 g/dl (31.0-35.0); Mean Corpuscular Hemoglobin 24.8 pg (27.0-33.0); Monocytes Absolute Auto 0.8 X10*3/uL (0.1-1.2); Monocytes Percent Auto 10.5 % (2-11); Neutrophils Absolute Auto 4.6 X10*3/uL (2.0-8.3); Neutrophils Percent Auto 63.7 % (45-73); Platelet Count 203 X10*3/uL (160-400); White Blood Count 7.2 X10*3/uL (4.8-10.8)
[2021-02-08 07:18] LABS: Anion Gap 14 (12-20); Blood Urea Nitrogen 6 mg/dL (9-16); Calcium 8.3 mg/dL (8.4-10.2); Carbon Dioxide 21 mmol/L (22-29); Chloride 102 mmol/L (96-108); Creatinine Clr Calc Pharmacy 102.6; Estimated Glomerular Filt Rate > 60; Glucose Random 108 mg/dL (60-115); Potassium 3.6 mmol/L (3.3-5.1); Sodium 133 mmol/L (135-145)
[2021-02-08] MEDS: 0.9 % Sodium Chloride Flush 3 ML SYRINGE IVFLUSH ×2 (07:21→16:22)
[2021-02-08 08:00] VITALS: BP 157/98; PULSE 86; RESP 16; TEMP 36.3; O2SAT 96
--- NOTE | 2021-02-08 08:58 | PM.GYNPNOP ---
GAS COMPRESSOR TURBINE OPERATOR - Subjective Subjective Date of Service: 02/08/21 Interval history: Ms. Handy reports she has still not had anything orally; she just had some ice chips and is waiting to see whether she keeps them down. She continues to have the same abdominal pain, which is from her upper abdomen to her pelvis. FIRE CONTROL TECHNICIAN B Physical Exam Vitals Vital signs: Temp Pulse Resp BP Pulse Ox 97.4 F 86 16 157/98 H 96 02/08/21 08:00 02/08/21 08:00 02/08/21 08:00 02/08/21 08:00 02/08/21 08:00 Body Mass Index 28.3 Constitutional General Appearance: Well-nourished and Well-developed Lungs Respiratory Effort: No intercostal retractions and No accessory muscle usage GAS COMPRESSOR TURBINE OPERATOR - Prog Note: Results Labs CBC & Chem 7: 02/08/21 05:59 02/08/21 05:59 Labs: Laboratory Results - last 24 hr 02/07/21 02/08/21 02/08/21 12:30 05:59 05:59 WBC 7.2 RBC 4.00 L Hgb 9.9 L Hct 32.0 L MCV 80.0 MCH 24.8 L MCHC 30.9 L RDW 16.0 Plt Count 203 MPV 13.0 H Immature Gran % (Auto) 0.3 Neut % (Auto) 63.7 Lymph % (Auto) 25.3 [place] % (Auto) 10.5 Eos % (Auto) 0.1 Baso % (Auto) 0.1 Lymph # (Auto) 1.8 [place] # (Auto) 0.8 Eos # (Auto) 0.0 Baso # (Auto) 0.0 Abs Immat Gran (auto) 0.02 Absolute Neuts (auto) 4.6 Absolute Nucleated RBC 0.000 Nucleated RBC % (auto) 0.0 Sodium 133 L Potassium 3.6 Chloride 102 Carbon Dioxide 21 L Anion Gap 14 BUN 6 L Creatinine 0.70 Estim Creat Clear Calc 102.6 Estimated GFR > 60 Random Glucose 108 Calcium 8.3 L Chlam trachomat DNA PCR NOT DETECTED N.gonorrhoeae DNA (PCR) NOT DETECTED GAS COMPRESSOR TURBINE OPERATOR - A/P (1) Vomiting: Problem details: The inability to tolerate oral medication is the only criteria that she meets for parenteral treatment of PID at this time (no signs of abscess or fever). Will order IV antibiotics; these can be switched to oral once she is tolerating P.O. Status: Acute (2) Pyelonephritis: Status: Acute (3) Abdominal pain: Status: Inactive Assessment and Plan: I reviewed with Ms. Handy her US findings. I reviewed with her again that given the location of her pain in her upper abdomen without US findings to explain a pelvic source of upper abdominal pain, my concern for PID is low. However, given the serious potential consequences of untreated PID (abscess, infertility), it is recommended to treat for PID when there is any clinical suspicion. As she is currently not tolerating PO, I have ordered the recommended parenteral regimen for PID: cefotetan 2g IV Q12 and doxycycline 100mg IV Q12. (The risk of allergic reaction to cefotetan with amoxicillin allergy is very low.) Once she is tolerating PO, she can be switched to doxycyline 100mg PO BID to complete a 14 day course (including the days she is on IV treatment). Given my low concern for PID, I would continue to consider alternative causes of her pain. Please re-contact FIRE CONTROL TECHNICIAN B with new questions or concerns. Time Spent With Patient Time: Total time spent is greater than 50% in coordination of care (as documented) at patient's floor/unit and/or counseling patient: 15 min Time with patient: less than 15 minutes
[2021-02-08] MEDS: Doxycycline Hyclate 100 MG in 0.9 % Sodium Chloride 250 ML 166.67 MG IV ×2 (09:13→22:30)
--- NOTE | 2021-02-08 10:53 | P.PNIM_ITS ---
Subjective Subjective Date of Service: 02/08/21 Interval History: Follow up pyelonephritis. Still wuth nausea and vomiting with lower abdominal pain. Not eating. Physical Exam Vital Signs: Vital Signs: Last Vital Signs Temp 97.4 F 02/08/21 08:00 Pulse 86 02/08/21 08:00 Resp 16 02/08/21 08:00 BP 157/98 H 02/08/21 08:00 Pulse Ox 96 02/08/21 08:00 Body Mass Index 28.3 Appearing in no acute distress lung sounds are clear to auscultation heart regular rate rhythm, clear S1, S2 positive bowel sounds, lower abdomen tenderness neuro patient is alert x3, no focal deficits Objective Data Current Medications Generic Name Dose Route Start Last Admin Trade Name Freq PRN Reason Stop Dose Admin Acetaminophen 650 mg 02/05/21 15:28 02/07/21 09:30 Acetaminophen 325 Mg Tablet PO 650 mg Q6H PRN Administration Pain, Mild (Pain Scale 1-3) Docusate Sodium 100 mg 02/05/21 21:00 02/08/21 07:32 Docusate Sodium 100 Mg Capsule PO Not Given BID VICTOR M Enoxaparin Sodium 40 mg 02/05/21 15:30 02/07/21 14:22 Enoxaparin Sodium 40 Mg/0.4 Ml Syringe SUBCUT 40 mg Q24H VICTOR M Administration Levofloxacin 750 mg in 150 mls @ 100 mls/hr 02/06/21 21:15 02/07/21 21:44 Levaquin IV Infused Q24H VICTOR M Infusion Dextrose/Sodium Chloride 1,000 mls @ 100 mls/hr 02/07/21 10:45 02/08/21 05:01 D51/2ns IVCONT 100 mls/hr .Q10H VICTOR M Administration Cefotetan Disodium 2 gm/ 50 mls @ 100 mls/hr 02/08/21 09:00 Sodium Chloride IV Q12H VICTOR M Doxycycline Hyclate 100 mg/ 250 mls @ 166.67 mls/hr 02/08/21 09:00 02/08/21 09:13 Sodium Chloride IV 166.67 mls/hr Q12H VICTOR M Administration Lidocaine/Diphenhydr/Alum/Mg/Simeth 10 ml 02/07/21 09:22 02/07/21 20:09 Mag&Al/Sim/Diphenhyd/Lidocaine 10 Ml Oral.Susp PO 10 ml Q6H PRN Administration abdominal pain Protocol Metoclopramide HCl 5 mg 02/05/21 15:33 02/08/21 07:27 Metoclopramide Hcl 10 Mg/2 Ml Vial IVPUSH 5 mg Q6H PRN Administration Nausea and Vomiting Morphine Sulfate 2 mg 02/05/21 16:11 02/08/21 07:22 Morphine Sulfate 2 Mg/Ml Cartridge IVPUSH 2 mg Q4H PRN Administration Pain, Severe (Pain Scale 7-10) Ondansetron HCl 4 mg 02/05/21 15:28 02/07/21 02:16 Ondansetron Hcl 4 Mg/2 Ml Vial IVPUSH 4 mg Q8H PRN Administration Nausea and Vomiting Pantoprazole Sodium 40 mg 02/07/21 10:45 02/08/21 05:37 Pantoprazole Sodium 40 Mg/10 Ml Vial IVPUSH 40 mg DAILY@0630 [facility] Administration Pharmacy Consult 1 each 02/05/21 16:04 Consult Rx Vancomycin Dosing MISCELLANE DAILY PRN Consult order Senna 17.2 mg 02/05/21 15:28 Sennosides 8.6 Mg Tablet PO BEDTIME PRN Constipation Sodium Chloride 3 ml 02/05/21 16:00 02/08/21 07:21 0.9 % Sodium Chloride Flush 3 Ml Syringe IVFLUSH 3 ml QSHIFT [facility] Administration Labs CBC & Chem 7: 02/08/21 05:59 02/08/21 05:59 Microbiology Microbiology Results: Microbiology 02/05/21 16:57 Blood - Venous Blood Culture - Preliminary No growth after 48 hours. 02/05/21 16:57 Blood - Venous Blood Culture - Preliminary No growth after 48 hours. Assessment and Plan (1) Pyelonephritis: Status: Acute Assessment and Plan: 41-year-old female with a history of hypothyroidism, history of UTI, seen in the emergency department yesterday with abdominal pain, nausea, vomiting who returns with the same found to have positive urine culture Abdominal pain. with nausea and vomiting. Still with pain to the lower abdomen. Pelvic and transvag u/s both negative for anything acute -Seen by PALEOLOGY PROFESSOR, low suspicion for PID however recommendation was to treat empiric ally with Ceftin and doxycycline. Emotional Disabilities Teacher also recommended switching her to oral doxycycline 100 mg b.i.d. to complete a 14 day course. -continue PPI -change diet to clear liquid, add D5NS -gastroenterology consultation for alternative causes of pain Pyelonephritis. Complicated UTI. Urine culture from 02/04 growing Enterococcus faecalis. -blood cx negative -ID following -continue Levaquin -pain control, antiemetics Hypokalemia. Mild -Kayex Hyponatremia. Mild, likely from vomiting -D5NS -Trend CBC Attending: Dr. Conley
[2021-02-08] MEDS: cefoTEtan disodium 2 GM in 0.9 % Sodium Chloride 50 ML IV ×2 (11:09→21:29)
[2021-02-08] MEDS: ondansetron HCL 4 MG/2 ML VIAL IVPUSH (11:53)
[2021-02-08 12:00] VITALS: BP 133/94; PULSE 82; RESP 16; TEMP 36.3; O2SAT 100
[2021-02-08 15:18] VITALS: BP 137/77; PULSE 79; RESP 16; TEMP 36.5; O2SAT 100
[2021-02-08] MEDS: Acetaminophen 325 MG TABLET 650 MG PO (19:26)
[2021-02-08 19:29] VITALS: BP 166/84; PULSE 88; RESP 16; TEMP 36.5; O2SAT 99
[2021-02-08] MEDS: Docusate Sodium 100 MG CAPSULE PO (21:21)
[2021-02-08] MEDS: Sennosides 8.6 MG TABLET 17.2 MG PO (21:21)
--- NOTE | 2021-02-08 22:20 | CONS_ITS ---
DATE OF SERVICE: 02/08/2021 REFERRING PHYSICIAN: Bobby Mckinney MD REASON FOR CONSULTATION: Abdominal pain. HISTORY OF PRESENT ILLNESS: The patient is a pleasant 41-year-old woman, who was admitted to the hospital on February 05 with abdominal pain, nausea, and vomiting. She was initially seen the day before admission and diagnosed with urinary tract infection and sent home on oral antibiotics. She presented to the emergency room next day complaining of generalized abdominal pain with nausea and nonbloody emesis. She says she felt hot and cold and sweaty, but did not take her temperature. She denies any melena or rectal bleeding. She has had previous admissions for urinary tract infections and pyelonephritis as well as urinary tract infections that were treated as an outpatient. She does take ibuprofen for menstrual cramps and for occasional headaches and does get occasional heartburn, but does not take any proton pump inhibitor. As part of the evaluation, she underwent laboratory testing and CT scanning, which was reviewed. She did have mild anemia with hematocrit on admission of 33.5, white count was 7.1. Chemistries showed normal liver profile and lipase. Imaging was obtained with CT scanning of the abdomen and pelvis, which showed no acute abnormality. 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 PAST MEDICAL HISTORY: 1. Urinary tract infections as above. 2. Hypothyroidism. CURRENT MEDICATIONS: Her current medication list was reviewed in the chart. ALLERGIES: AMOXICILLIN AND TRAMADOL. FAMILY HISTORY: This was reviewed with the patient and was noncontributory. SOCIAL HISTORY: She does smoke 3 to 4 cigarettes per day. She states she uses marijuana occasionally. She denies any other substance use. 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 REVIEW OF SYSTEMS: SKIN: No pruritus. HEENT: Negative. CARDIOPULMONARY: She denies shortness of breath or chest pain. GASTROINTESTINAL: As above. GENITOURINARY: Negative. NEUROPSYCHIATRIC: Negative. PHYSICAL EXAMINATION: GENERAL: Shows a well-appearing female, complaining of abdominal pain, asking her nurse when her next pain dose is due. VITAL SIGNS: Reviewed in the electronic medical record and are stable. SKIN: Anicteric. HEENT: Shows no scleral icterus. NECK: Without lymphadenopathy or thyromegaly. LUNGS: Clear. HEART: Shows regular rate and rhythm. S1, S2. No murmur. ABDOMEN: Soft. She does complain of tenderness to palpation over both lower quadrants. Bowel sounds are present. No organomegaly is noted. There is no guarding or rebound. EXTREMITIES: Without edema. DATA: Laboratory data including CT scanning was reviewed. IMPRESSION AND PLAN: Abdominal pain. It is possible some of her symptoms could be related to her recent infection with nausea and vomiting on the basis of that or even her antibiotics. She states she did not tolerate the initial prescription. She has been treated with pantoprazole intravenously, and when she is tolerating oral intake, she can be switched to proton pump inhibitor orally. If her symptoms of nausea and vomiting persists, I would recommend she undergo upper endoscopy. This can be arranged electively as an outpatient assuming she is able to tolerate solid food and be discharged for outpatient evaluation. Thanks for asking me to see her. I will follow her in the hospital with you. MD KATIE Page/CANDIS / [phone]
[2021-02-08 23:41] VITALS: BP 118/72; PULSE 84; RESP 20; TEMP 36.4; O2SAT 99
[2021-02-09] MEDS: levoFLOXacin/D5W 750 MG/150 ML PIGGYBACK 100 MG IV (00:29)
[2021-02-09] MEDS: Dextrose 5 % and 0.45 % NaCl 1,000 ML 100 ML IVCONT (02:18)
[2021-02-09] MEDS: Acetaminophen 325 MG TABLET 650 MG PO (02:21)
[2021-02-09] MEDS: Morphine Sulfate 2 MG/ML CARTRIDGE IVPUSH ×2 (03:49→10:12)
[2021-02-09 04:00] VITALS: BP 115/71; PULSE 85; RESP 20; TEMP 36.7; O2SAT 99
[2021-02-09] MEDS: Pantoprazole Sodium 40 MG/10 ML VIAL IVPUSH (05:29)
[2021-02-09 06:49] LABS: Basophils Percent Auto 0.3 % (0-2); Hemoglobin 9.9 g/dl (12.0-16.0); MANUAL DIFF FLAG SCAN; SCAN SMEAR FLAG 1
[2021-02-09 06:51] LABS: Mean Corpuscular Volume 80.4 fL (80-98); White Blood Count 6.1 X10*3/uL (4.8-10.8)
[2021-02-09 07:08] LABS: Eosinophils Percent Auto 0.5 % (0-4); Imm Gran Abs Auto 0.02 X10*3/uL (0.00-0.03); Imm Gran Pct Auto 0.3 % (0.0-0.4); Lymphocytes Absolute Auto 1.3 X10*3/uL (1.2-4.9); Lymphocytes Percent Auto 21.7 % (20-40); Mean Corpuscular HGB Conc 30.9 g/dl (31.0-35.0); Mean Corpuscular Hemoglobin 24.9 pg (27.0-33.0); Mean Platelet Volume 12.9 fL (9.4-12.3); Monocytes Absolute Auto 0.7 X10*3/uL (0.1-1.2); Monocytes Percent Auto 10.9 % (2-11); Neutrophils Absolute Auto 4.1 X10*3/uL (2.0-8.3); Neutrophils Percent Auto 66.3 % (45-73); Platelet Count 203 X10*3/uL (160-400); Red Blood Count 3.98 X10*6/uL (4.20-5.50); Red Cell Distribution Width 16.5 % (11.0-16.0)
[2021-02-09 07:10] LABS: Anion Gap 11 (12-20); Blood Urea Nitrogen 6 mg/dL (9-16); Calcium 8.4 mg/dL (8.4-10.2); Carbon Dioxide 24 mmol/L (22-29); Chloride 105 mmol/L (96-108); Creatinine Clr Calc Pharmacy 101.2; Estimated Glomerular Filt Rate > 60; Glucose Random 115 mg/dL (60-115); PLT ABN DIST 1; Potassium 3.4 mmol/L (3.3-5.1); Sodium 137 mmol/L (135-145)
[2021-02-09 07:29] LABS: SLIDE REVIEW VERIFIED
[2021-02-09 08:00] VITALS: BP 153/93; PULSE 82; RESP 16; TEMP 36.9; O2SAT 100
[2021-02-09] MEDS: cefoTEtan disodium 2 GM in 0.9 % Sodium Chloride 50 ML IV (10:18)
--- NOTE | 2021-02-09 10:19 | PM.DS ---
DS: Providers Provider Date of Service: 02/09/21 <RAMONE Armendariz - Last Filed: 02/09/21 11:07> 02/09/21 <Saravanan Conley MD - Last Filed: 02/09/21 16:44> Date of admission: 02/05/21 16:30 <RAMONE Armendariz - Last Filed: 02/09/21 11:07> Primary care physician: Navi Real MD <RAMONE Armendariz - Last Filed: 02/09/21 11:07> Consults: 02/05/21 16:11 Consult to Infectious Diseases Routine Consulting Provider: Gina Martinez Reason for consultation: uti Has provider been notified: No 02/07/21 11:13 Consult to Obstetrics / Gynecology Routine Consulting Provider: Elton Baez Reason for consultation: lower abdominal pain ? PID Has provider been notified: No 02/08/21 10:57 Consult to Gastroenterology Routine Consulting Provider: Leon House Reason for consultation: unresolving abdominal pain, admitted with pyelo Has provider been notified: No <RAMONE Armendariz - Last Filed: 02/09/21 11:07> DS: Diagnosis Discharge Diagnosis (1) Pyelonephritis: Status: Acute <RAMONE Armendariz - Last Filed: 02/09/21 11:07> (2) Intractable nausea and vomiting: Status: Acute <RAMONE Armendariz - Last Filed: 02/09/21 11:07> (3) Hypokalemia: Status: Acute <RAMONE Armendariz - Last Filed: 02/09/21 11:07> DS: Medications Discharge Medications Home Medications: Previous Rx's Medication Instructions Recorded cefuroxime axetil 500 mg PO BID 7 Days #14 tab 01/04/21 ondansetron HCl [Zofran] 4 mg PO Q8H PRN #14 tab 01/04/21 oxycodone 5 mg PO TID PRN #5 cap 01/04/21 acetaminophen [Tylenol Extra 1,000 mg PO QID PRN #14 tab 02/04/21 Strength] cefuroxime axetil 500 mg PO BID 7 Days #14 tab 02/04/21 ibuprofen 800 mg PO Q8H PRN #14 tab 02/04/21 ondansetron HCl [Zofran] 4 mg PO Q8H PRN #14 tab 02/04/21 oxycodone 5 mg PO BID PRN #5 tab 02/04/21 <RAMONE Armendariz - Last Filed: 02/09/21 11:07> DS: Summary Hospital Course Hospital Course: This is a 41-year-old female who presents to the emergency department with complaints of abdominal pain, nausea, vomiting. She was seen in the emergency department yesterday with similar complaints. She underwent a CT scan at that time which revealed no acute process. She was started on oral antibiotics for possible UTI and was discharged home. She returns to the emergency department today with ongoing generalized abdominal pain with radiation to her back, nausea and vomiting. She reports associated subjective fevers and chills. She denies any recent takeout food, diarrhea, travel, recent sick contacts. She denies any dysuria or polyuria. She does report this is the way that she felt last month when she was admitted for UTI/pyelonephritis. She was admitted to the hospital in December of this year with UTI, urine culture at that time grew Citrobacter. In the emergency department she was afebrile, lab work revealed no leukocytosis and kidney function was at baseline. She received multiple doses of pain medication and antiemetics in the emergency department but continued to feel nauseated and the decision was made to admit her for further management. UTI/pyelonephritis Urine culture grew Enterococcus faecalis. She was seen in consultation by Infectious Diseases who recommended 14 day course of levofloxacin. Blood cultures have remained negative. Abominal Pain Pain was initially attributed to pyelonephritis. Given persistent pain and decreased PO intake she was seen in consultation by TECHNICAL SERVICE SPECIALIST. Transvaginal ultrasound and pelvic ultrasound were unremarkable. TECHNICAL SERVICE SPECIALIST recommended empiric treatment for PID and she was started on cefotetan and doxycycline and is recommend to transition to doxycycline on discharge for total 14 days. She was also seen by GI who recommended daily PPI and outpatient follow-up. She is currently tolerating a regular diet and is eager to return home. Attending Attestation: Patient seen and examined independently and I was present during voss portion of E/M service. Agree with RAMONE Felton's history, physical, assessment, and plan. Treated for pyelo + empiric for PID. Improved with IV and will be d/c on oral antibiotics as above for total 14d. Also had abd pain, possible gastritis and empirically treated with IV ppi. Seen by GI with recommendations for outpatient f/u if needed. <RAMONE Armendariz - Last Filed: 02/09/21 11:07> Time Spent with Patient Time attestation: Total time spent providing and/or coordinating discharge services: <RAMONE Armendariz - Last Filed: 02/09/21 11:07> Discharge coordination time: Greater than 30 minutes <RAMONE Armendariz Last Filed: 02/09/21 11:07> Physical Exam Vital Signs: Vital Signs: Last Vital Signs Temp 98.5 F 02/09/21 08:00 Pulse 82 02/09/21 08:00 Resp 16 02/09/21 08:00 BP 153/93 H 02/09/21 08:00 Pulse Ox 100 02/09/21 08:00 Body Mass Index 28.3 <RAMONE Armendariz Last Filed: 02/09/21 11:07> Const: Nutritional Appearance: well nourished <RAMONE Armendariz Last Filed: 02/09/21 11:07> Orientation/consciousness: patient oriented x3 <RAMONE Armendariz - Last Filed: 02/09/21 11:07> HENMT: Head: Yes normocephalic and Yes atraumatic <RAMONE Armendariz Last Filed: 02/09/21 11:07> Eyes: Sclerae: sclerae normal <RAMONE Armendariz - Last Filed: 02/09/21 11:07> Resp: Effort & Inspection: normal respiratory effort and no respiratory distress <RAMONE Armendariz Last Filed: 02/09/21 11:07> Cardio: Rate: regular rate <RAMONE Armendariz Last Filed: 02/09/21 11:07> Rhythm: regular rhythm <RAMONE Armendariz Last Filed: 02/09/21 11:07> GI: Inspection: No distended <RAMONE Armendariz Last Filed: 02/09/21 11:07> Palpation (GI): Soft to palpation and no guarding <RAMONE Armendariz - Last Filed: 02/09/21 11:07> Neuro: General: patient oriented x3 <RAMONE Armendariz - Last Filed: 02/09/21 11:07> Cranial nerves: Yes CN's II-XII intact bilaterally and Yes Bilaterally intact EOM present <RAMONE Armendariz - Last Filed: 02/09/21 11:07> DS: Data Data Completed and Pending Labs on day of discharge: Laboratory Results - last 24 hr 02/09/21 02/09/21 06:09 06:09 WBC 6.1 RBC 3.98 L Hgb 9.9 L Hct 32.0 L MCV 80.4 MCH 24.9 L MCHC 30.9 L RDW 16.5 H Plt Count 203 MPV 12.9 H Immature Gran % (Auto) 0.3 Neut % (Auto) 66.3 Lymph % (Auto) 21.7 [place] % (Auto) 10.9 Eos % (Auto) 0.5 Baso % (Auto) 0.3 Lymph # (Auto) 1.3 [place] # (Auto) 0.7 Eos # (Auto) 0.0 Baso # (Auto) 0.0 Abs Immat Gran (auto) 0.02 Absolute Neuts (auto) 4.1 Absolute Nucleated RBC 0.000 Nucleated RBC % (auto) 0.0 Smear Tech's Comments VERIFIED Sodium 137 Potassium 3.4 Chloride 105 Carbon Dioxide 24 Anion Gap 11 L BUN 6 L Creatinine 0.71 Estim Creat Clear Calc 101.2 Estimated GFR > 60 Random Glucose 115 Calcium 8.4 Preliminary micro results at discharge 02/05/21 16:57 Blood Culture - Preliminary Blood - Venous No growth after 48 hours. 02/05/21 16:57 Blood Culture - Preliminary Blood - Venous No growth after 48 hours. <RAMONE Armendariz - Last Filed: 02/09/21 11:07> Discharge Plan Discharge Patient Disposition: Home, Self-Care <RAMONE Armendariz - Last Filed: 02/09/21 11:07> Referrals: Leon House [Physician] - (abdominal pain) Navi Real MD [Primary Care Provider] - <RAMONE Armendariz - Last Filed: 02/09/21 11:07> Discharge Medications: New omeprazole 40 mg capsule,delayed release(DR/EC) 40 mg PO DAILY 30 Days Qty: 30 RF: 0 doxycycline hyclate 100 mg capsule 100 mg PO BID 13 Days Qty: 26 RF: 0 levofloxacin 750 mg tablet 750 mg PO DAILY 10 Days Qty: 10 RF: 0 Continued ondansetron HCl [Zofran] 4 mg tablet 4 mg PO Q8H PRN (Reason: nausea and vomiting) Qty: 14 RF: 0 Discontinued cefuroxime axetil 500 mg tablet 500 mg PO BID 7 Days Qty: 14 RF: 0 oxycodone 5 mg capsule 5 mg PO TID PRN (Reason: pain, moderate) Qty: 5 RF: 0 cefuroxime axetil 500 mg tablet 500 mg PO BID 7 Days Qty: 14 RF: 0 ondansetron HCl [Zofran] 4 mg tablet 4 mg PO Q8H PRN (Reason: nausea and vomiting) Qty: 14 RF: 0 acetaminophen [Tylenol Extra Strength] 500 mg tablet 1,000 mg PO QID PRN (Reason: fever or pain) Qty: 14 RF: 0 ibuprofen 800 mg tablet 800 mg PO Q8H PRN (Reason: pain) Qty: 14 RF: 0 oxycodone 5 mg tablet 5 mg PO BID PRN (Reason: pain) Qty: 5 RF: 0 <RAMONE Armendariz - Last Filed: 02/09/21 11:07> Discharge Orders: Discharge Order (Routine); Ordered 02/09/21 Ordered By: Beatris Ludwig <RAMONE Armendariz - Last Filed: 02/09/21 11:07> Activity on Discharge: As tolerated <RAMONE Armendariz - Last Filed: 02/09/21 11:07> As tolerated <Saravanan Conley MD - Last Filed: 02/09/21 16:44> Stand Alone Forms: Patient Portal Discharge page, Work/School Release <RAMONE Armendariz - Last Filed: 02/09/21 11:07> Care Plan Goals: See Below <RAMONE Armendariz - Last Filed: 02/09/21 11:07> Health Concerns: Pyelonephritis. possible PID. Abdominal pain. <RAMONE Armendariz - Last Filed: 02/09/21 11:07> Plan of Treatment: Pyelonephritis. Please complete entire course of antibiotics. possible PID. Please complete entire course of antitiotics Abdominal pain. start taking PPI, call Dr. House's office to schedule follow up appointment. <RAMONE Armendariz - Last Filed: 02/09/21 11:07> Discharge Date/Time: 02/09/21 12:40 <RAMONE Armendariz - Last Filed: 02/09/21 11:07>
[2021-02-09] MEDS: Doxycycline Hyclate 100 MG in 0.9 % Sodium Chloride 250 ML 166.67 MG IV (10:55)
--- NOTE | 2021-02-09 11:13 | MHC.CM.PN ---
PATIENT IS DISCHARGED HOME WITH NO NEED FOR SERVICES. HER CAR IS IN LOT. RN AWARE OF PLAN.
[2021-02-09 11:54] VITALS: BP 141/90; PULSE 84; RESP 16; TEMP 36.6; O2SAT 100
== END 2021-02-09 12:40 | disposition home or self-care (01) | DRG 463 ==
LOC: HO.ED 09:48 → HO.S3 16:05
PROVIDERS: Nurse Practitioner Acute Care; Obstetrics & Gynecology; Physician Assistant Medical; Admitting Provider Student in an Organized Health Care Education/Training Program; Emergency Provider Emergency Medicine; PCP Family Medicine; Visit Provider Family Medicine
DX: N12 Tubulo-interstitial nephritis, not specified as acute or chronic (principal); E87.1 Hypo-osmolality and hyponatremia; B95.2 Enterococcus as the cause of diseases classified elsewhere; E03.9 Hypothyroidism, unspecified; E87.6 Hypokalemia; N73.9 Female pelvic inflammatory disease, unspecified; F17.210 Nicotine dependence, cigarettes, uncomplicated; Z71.6 Tobacco abuse counseling; Z87.440 Personal history of urinary (tract) infections; Z20.822 Contact with and (suspected) exposure to COVID-19; Z88.0 Allergy status to penicillin; Z88.5 Allergy status to narcotic agent; Z79.899 Other long term (current) drug therapy
CPT/HCPCS: 0241U; 36415; 76830; 76856; 80048; 80053; 80202; 83690; 84702; 85007; 85025; 85027; 87040; 87491; 87591; 93005; 96374; 96375; 99285; J0290; J1200; J1650; J1956; J2060; J2270; J2405; J2765; J3370

== ENCOUNTER 2021-03-15 12:26 | Emergency (ER) | payer OTHER, SELFPAY ==
[2021-03-15 12:38] VITALS: BP 141/96; PULSE 70; RESP 20; TEMP 37.1; O2SAT 98; BMI 28.3
--- NOTE | 2021-03-15 12:40 | ED_ITS ---
HPI - Abdominal Pain General Chief Complaint: Abdominal Pain Stated Complaint: abd pain, hx uti Time Seen by Provider: 03/15/21 12:40 Source: patient Mode of arrival: EMS Limitations: no limitations History of Present Illness HPI narrative: patient with shaking and vomiting for a few days, thinks she is having sepsis secondary to UTI as she has had this before MD elicited complaint: abdominal pain Pertinent past history: past UTI Onset (ago): hour(s) Pain Consistency: constant Location: other (lower) Severity: mild Quality: stabbing Exacerbating factors: movement Relieving factors: nothing Associated symptoms: nausea, vomiting, chills and dysuria Related Data Previous Rx's Medication Instructions Recorded ondansetron HCl [Zofran] 4 mg PO Q8H PRN #14 tab 01/04/21 doxycycline hyclate 100 mg PO BID 13 Days #26 cap 02/09/21 levofloxacin 750 mg PO DAILY 10 Days #10 tab 02/09/21 omeprazole 40 mg PO DAILY 30 Days #30 cap 02/09/21 cephalexin [Keflex] 750 mg PO QID #28 cap 03/15/21 ondansetron HCl [Zofran] 4 mg PO Q8H PRN #10 tab 03/15/21 Allergies Allergy/AdvReac Type Severity Reaction Status Date / Time amoxicillin [Amoxicillin] Allergy Intermediate HIVES Verified 02/04/21 07:59 tramadol AdvReac Intermediate SOB Verified 02/04/21 07:59 Review of Systems Constitutional: Reports no additional constitutional complaints Eyes: Reports no additional eye complaints Denies dizziness Cardiovascular: Reports no additional cardiovascular complaints Respiratory: Reports as per HPI Gastrointestinal: Reports no additional gastrointestinal complaints Genitourinary: Reports no additional female genitourinary complaints Musculoskeletal: Reports no additional musculoskeletal complaints Skin/Breast: Denies rash Reports system reviewed and no additional complaints, except as documented, Denies dizziness and Denies Sensory deficit (Neuro) Psychiatric: Denies anxiety Physical Exam Vital Signs: Vital Signs: Last Vital Signs Temp 98.7 F 03/15/21 12:38 Pulse 70 03/15/21 12:38 Resp 20 03/15/21 12:38 BP 141/96 H 03/15/21 12:38 Pulse Ox 98 03/15/21 12:38 Body Mass Index 28.3 Const: Other: anxious tearful female shaking Nutritional Appearance: average body habitus Orientation/consciousness: oriented to person and patient oriented x3 Limitations: no limitations HENMT: Head: Yes normal to inspection Ears: external ears normal General nose exam: Normal external nose present Mouth: Normal oral and palatal mucosa present and oropharynx normal Throat: Yes posterior oropharynx normal Eyes: General: appearance normal, both eyes and all related structures Neck: Other: supple Neck: Yes normal visual inspection Chest: Chest palpation & inspection: normal inspection of the chest Resp: Auscultation: clear to auscultation bilaterally Cardio: Jugular venous distension: no JVD Rate: regular rate Rhythm: regular rhythm Heart sounds: S1 normal heart sound present and S2 normal heart sound present GI: Inspection: Yes normal to inspection Palpation (GI): Soft to palpation, nontender and No hepatosplenomegaly present Auscultation: normal bowel sounds : General: Yes no CVA tenderness Back/Spine/Pelvis: Back: no CVA tenderness Skin: General skin exam: no rashes or lesions noted Neuro: General: oriented to person and patient oriented x3 Cranial nerves: Yes CN's II-XII intact bilaterally Motor exam (neuro): 5/5 motor strength present throughout Sensory Exam: No Sensory deficit (Neuro) Extrem: General: Yes normal to inspection Psych: Appearance: grossly normal MDM - Abdominal Pain MDM Narrative Medical decision making narrative: patients UA consistent with UTI will dc on keflex, no evidence of sepsis Differential Diagnosis Differential diagnosis: Likely abdominal pain Lab Data Result diagrams: 03/15/21 13:01 03/15/21 13:01 Labs: Lab Results 03/15/21 03/15/21 03/15/21 Range/Units 13:01 13:01 14:11 WBC 8.0 (4.8-10.8) X10*3/uL RBC 4.42 (4.20-5.50) X10*6/uL Hgb 10.9 L (12.0-16.0) g/dl Hct 35.6 L (37-47) % MCV 80.5 (80-98) fL MCH 24.7 L (27.0-33.0) pg MCHC 30.6 L (31.0-35.0) g/dl RDW 17.0 H (11.0-16.0) % Plt Count 299 D (160-400) X10*3/uL MPV 12.6 H (9.4-12.3) fL Immature Gran % (Auto) 0.3 (0.0-0.4) % Neut % (Auto) 83.8 H (45-73) % Lymph % (Auto) 11.5 L (20-40) % [place] % (Auto) 4.0 (2-11) % Eos % (Auto) 0.1 (0-4) % Baso % (Auto) 0.3 (0-2) % Lymph # (Auto) 0.9 L (1.2-4.9) X10*3/uL [place] # (Auto) 0.3 (0.1-1.2) X10*3/uL Eos # (Auto) 0.0 (0.0-0.4) X10*3/uL Baso # (Auto) 0.0 (0.0-0.2) X10*3/uL Abs Immat Gran (auto) 0.02 (0.00-0.03) X10*3/uL Absolute Neuts (auto) 6.7 (2.0-8.3) X10*3/uL Absolute Nucleated RBC 0.000 (0.0-0.012) X10*3/uL Nucleated RBC % (auto) 0.0 (0.0-0.2) /100WBC Sodium 140 (135-145) mmol/L Potassium 3.7 (3.3-5.1) mmol/L Chloride 105 (96-108) mmol/L Carbon Dioxide 25 (22-29) mmol/L Anion Gap 14 (12-20) BUN 12 D (9-16) mg/dL Creatinine 0.78 (0.5-1.4) mg/dL Estim Creat Clear Calc 92.1 Estimated GFR > 60 Random Glucose 119 H (60-115) mg/dL Calcium 9.7 D (8.4-10.2) mg/dL Total Bilirubin 0.7 (0.0-1.0) mg/dL Direct Bilirubin 0.3 (0.0-0.5) mg/dL AST 20 (5-31) U/L ALT 19 (0-31) U/L Alkaline Phosphatase 69 D (39-117) U/L Total Protein 8.7 H (6.5-8.0) g/dL Albumin 4.6 (3.5-5.0) g/dL Lipase 57 (8-78) U/L Urine Color PINK Urine Appearance HAZY Urine pH 8.5 H (5.0-8.0) Ur Specific [place] 1.020 (1.005-1.025) Urine Protein TRACE (NEG-TRACE) MG/DL Urine Glucose (UA) NEG (NEG) MG/DL Urine Ketones 15 (NEG) MG/DL Urine Blood 3+ H (NEG) Urine Nitrite NEG (NEG) Ur Leukocyte Esterase TRACE H (NEG) Urine RBC 76-150 H (0) /HPF Urine WBC 15-29 H (0-4) /HPF Ur Squamous Epith Cells 2+ /LPF Urine Bacteria NONE /LPF Urine Mucus 1+ /LPF Urine Test (NEGATIVE) 03/15/21 Range/Units 14:11 WBC (4.8-10.8) X10*3/uL RBC (4.20-5.50) X10*6/uL Hgb (12.0-16.0) g/dl Hct (37-47) % MCV (80-98) fL MCH (27.0-33.0) pg MCHC (31.0-35.0) g/dl RDW (11.0-16.0) % Plt Count (160-400) X10*3/uL MPV (9.4-12.3) fL Immature Gran % (Auto) (0.0-0.4) % Neut % (Auto) (45-73) % Lymph % (Auto) (20-40) % [place] % (Auto) (2-11) % Eos % (Auto) (0-4) % Baso % (Auto) (0-2) % Lymph # (Auto) (1.2-4.9) X10*3/uL [place] # (Auto) (0.1-1.2) X10*3/uL Eos # (Auto) (0.0-0.4) X10*3/uL Baso # (Auto) (0.0-0.2) X10*3/uL Abs Immat Gran (auto) (0.00-0.03) X10*3/uL Absolute Neuts (auto) (2.0-8.3) X10*3/uL Absolute Nucleated RBC (0.0-0.012) X10*3/uL Nucleated RBC % (auto) (0.0-0.2) /100WBC Sodium (135-145) mmol/L Potassium (3.3-5.1) mmol/L Chloride (96-108) mmol/L Carbon Dioxide (22-29) mmol/L Anion Gap (12-20) BUN (9-16) mg/dL Creatinine (0.5-1.4) mg/dL Estim Creat Clear Calc Estimated GFR Random Glucose (60-115) mg/dL Calcium (8.4-10.2) mg/dL Total Bilirubin (0.0-1.0) mg/dL Direct Bilirubin (0.0-0.5) mg/dL AST (5-31) U/L ALT (0-31) U/L Alkaline Phosphatase (39-117) U/L Total Protein (6.5-8.0) g/dL Albumin (3.5-5.0) g/dL Lipase (8-78) U/L Urine Color Urine Appearance Urine pH (5.0-8.0) Ur Specific [place] (1.005-1.025) Urine Protein (NEG-TRACE) MG/DL Urine Glucose (UA) (NEG) MG/DL Urine Ketones (NEG) MG/DL Urine Blood (NEG) Urine Nitrite (NEG) Ur Leukocyte Esterase (NEG) Urine RBC (0) /HPF Urine WBC (0-4) /HPF Ur Squamous Epith Cells /LPF Urine Bacteria /LPF Urine Mucus /LPF Urine Test NEGATIVE (NEGATIVE) Discharge Plan Discharge Clinical Impression: Urinary tract infection Qualifiers: Urinary tract infection type: acute cystitis Hematuria presence: with hematuria Qualified Code(s): N30.01 - Acute cystitis with hematuria Patient Disposition: Home, Self-Care Instructions: Urinary Tract Infection in Women (ED), Dysuria (ED) Prescriptions: New ondansetron HCl [Zofran] 4 mg tablet 4 mg PO Q8H PRN (Reason: nausea and vomiting) Qty: 10 RF: 0 cephalexin [Keflex] 750 mg capsule 750 mg PO QID Qty: 28 RF: 0 No Action ondansetron HCl [Zofran] 4 mg tablet 4 mg PO Q8H PRN (Reason: nausea and vomiting) Qty: 14 RF: 0 omeprazole 40 mg capsule,delayed release(DR/EC) 40 mg PO DAILY 30 Days Qty: 30 RF: 0 doxycycline hyclate 100 mg capsule 100 mg PO BID 13 Days Qty: 26 RF: 0 levofloxacin 750 mg tablet 750 mg PO DAILY 10 Days Qty: 10 RF: 0 Referrals: Navi Real MD [Primary Care Provider] - 5 days PMFSH Past Medical History Medical History Abscess Cyclical vomiting Hidradenitis suppurativa Hypothyroidism Surgical History Tubal ligation status Family History Family History Other Heart disease Social History Social History Household Members: Children Housing: House Alcohol intake: never Smoking Status: Current every day smoker Tobacco Type: Cigarette Cigarettes Per Day: 3 Years Smoked: 20 Second Hand Smoke Exposure: No Use of substances other than those prescribed or required for medical reasons: No Substance Use Type: Marijuana Advance Directives: Yes Advance Directives on File: Yes Advance Directives Date on File: 01/02/21 Patient : No service: No Current occupational status: employed
[2021-03-15] MEDS: LORazepam 2 MG/ML VIAL 1 MG IVPUSH (13:02)
[2021-03-15] MEDS: ondansetron HCL 4 MG/2 ML VIAL IVPUSH (13:02)
[2021-03-15] MEDS: 0.9 % Sodium Chloride 1,000 ML 999 ML IVCONT ×2 (13:02→14:34)
[2021-03-15 13:10] LABS: MANUAL DIFF FLAG NO
[2021-03-15 13:30] LABS: Basophils Percent Auto 0.3 % (0-2); Eosinophils Percent Auto 0.1 % (0-4); Hematocrit 35.6 % (37-47); Hemoglobin 10.9 g/dl (12.0-16.0); Imm Gran Abs Auto 0.02 X10*3/uL (0.00-0.03); Imm Gran Pct Auto 0.3 % (0.0-0.4); Lymphocytes Absolute Auto 0.9 X10*3/uL (1.2-4.9); Lymphocytes Percent Auto 11.5 % (20-40); Mean Corpuscular HGB Conc 30.6 g/dl (31.0-35.0); Mean Corpuscular Hemoglobin 24.7 pg (27.0-33.0); Mean Corpuscular Volume 80.5 fL (80-98); Mean Platelet Volume 12.6 fL (9.4-12.3); Monocytes Absolute Auto 0.3 X10*3/uL (0.1-1.2); Neutrophils Absolute Auto 6.7 X10*3/uL (2.0-8.3); Neutrophils Percent Auto 83.8 % (45-73); Platelet Count 299 X10*3/uL (160-400); Red Blood Count 4.42 X10*6/uL (4.20-5.50)
[2021-03-15 13:47] LABS: Alanine Aminotransferase 19 U/L (0-31); Albumin Level 4.6 g/dL (3.5-5.0); Alkaline Phosphatase 69 U/L (39-117); Anion Gap 14 (12-20); Aspartate Amino Transferase 20 U/L (5-31); Bilirubin Direct 0.3 mg/dL (0.0-0.5); Bilirubin Total 0.7 mg/dL (0.0-1.0); Blood Urea Nitrogen 12 mg/dL (9-16); Calcium 9.7 mg/dL (8.4-10.2); Carbon Dioxide 25 mmol/L (22-29); Chloride 105 mmol/L (96-108); Creatinine Clr Calc Pharmacy 92.1; Estimated Glomerular Filt Rate > 60; Glucose Random 119 mg/dL (60-115); Lipase 57 U/L (8-78); Potassium 3.7 mmol/L (3.3-5.1); Sodium 140 mmol/L (135-145); Total Protein 8.7 g/dL (6.5-8.0)
[2021-03-15 14:21] LABS: Glucose Urine UA NEG (NEG); Leukocyte Esterase Urine TRACE (NEG); Nitrite Urine NEG (NEG); PH 8.5 (5.0-8.0); UACC Culture Trigger YES; Urine Blood 3+ (NEG); Urine Ketones 15 MG/DL (NEG); Urine Protein TRACE MG/DL (NEG-TRACE)
[2021-03-15 14:24] LABS: Appearance Urine HAZY; Color Urine PINK; UPreg QC Valid YES; Urine Pregnancy NEGATIVE (NEGATIVE)
[2021-03-15 14:32] LABS: Mucus Urine 1+ /LPF; Squamous Epithelial Cell Urine 2+ /LPF
[2021-03-15 16:00] VITALS: BP 135/77; PULSE 75; RESP 18; TEMP 36.8; O2SAT 97
[2021-03-15] MEDS: Haloperidol Lactate 5 MG/ML VIAL IVPUSH (16:15)
--- NOTE | 2021-03-15 16:59 | PC.NURSE ---
WHEN THIS RN WENT TO D/C PATIENT SHE ASKED TO BE ADMITTED TO THE HOSPITAL TO KEEP AN EYE ON HER D/T HER VOMITING, NO VOMITING NOTED SINCE PT ARRIVAL >3 HRS AGO, PT TOLERATING PO INTAKE, PT ADVISED IS OK TO TAKE MEDICATIONS AT HOME, TO RETURN WITH ANY WORSENING OF SX, PT VERBALIZES AGREEMENT AND UNDERSTANDING OF PLAN OF CARE AND PENDING D/C.
== END 2021-03-15 17:01 | disposition home or self-care (01) ==
PROVIDERS: Emergency Provider Emergency Medicine; PCP Family Medicine
DX: N30.01 Acute cystitis with hematuria (principal); F17.210 Nicotine dependence, cigarettes, uncomplicated; Z71.6 Tobacco abuse counseling; Z79.899 Other long term (current) drug therapy
CPT/HCPCS: 36415; 80048; 80076; 81001; 81003; 81025; 83690; 85025; 87040; 87086; 96365; 96375; 99284; J2060; J2405; J2550

== ENCOUNTER 2021-03-21 12:22 | Inpatient (IN) | payer OTHER, SELFPAY ==
[2021-03-21] VITALS (7 sets, daily range): BP systolic 133–181; BP diastolic 72–103; PULSE 81–97; RESP 13–22; TEMP 36.3–37.2; O2SAT 96–99; BMI 28.3
--- NOTE | 2021-03-21 | ECG_ITS ---
Test Reason : WEAK Blood Pressure : / mmHG Vent. Rate : 090 BPM Atrial Rate : 090 BPM P-R Int : 130 ms QRS Dur : 078 ms QT Int : 414 ms P-R-T Axes : 075 064 037 degrees QTc Int : 506 ms Normal sinus rhythm Possible Left atrial enlargement Left ventricular hypertrophy Prolonged QT Abnormal ECG When compared with ECG of 05-FEB-2021 16:10, QT has lengthened Referred By: Kev Herzog Electronically Signed By:Benjamin Zayas
--- NOTE | ~2021-03-21 | US_ITS ---
EXAMINATION: US RETROPERITONEAL LIMITED (RENAL ONLY) CLINICAL INFORMATION: Renal calculi. COMPARISON: CT abdomen pelvis 02/04/2021 TECHNIQUE: Ultrasound of the kidneys was performed FINDINGS: RIGHT KIDNEY: 10.0 x 6.6 x 5.6 cm (SAG x AP x TRV). The kidney is normal in size, contour, and echogenicity. Renal cortical thickness is normal. No calculi or focal parenchymal lesions. No hydronephrosis. LEFT KIDNEY: 11.1 x 6.2 x 4.7 cm (SAG x AP x TRV). The kidney is normal in size, contour, and echogenicity. Renal cortical thickness is normal. No calculi or focal parenchymal lesions. No hydronephrosis. US/US renal BI IMPRESSION: No renal calculi are seen on ultrasound. Please note that on the CT scan performed recently no renal calculi were seen and CT is much more sensitive than ultrasound..
--- NOTE | ~2021-03-21 | US_ITS ---
EXAMINATION: PELVIC ULTRASOUND CLINICAL INFORMATION: Pelvic pain COMPARISON: Pelvic ultrasound 02/07/2021 TECHNIQUE: Both transabdominal and endovaginal scanning was performed. FINDINGS: Again seen is an anteverted anteflexed uterus measuring 7.8 x 4.3 x 4.4 cm. The uterus appears normal. The right ovary measures 3.4 x 2.7 x 2.4 cm for a volume of 11.5 mL and includes a 1.3 x 0.9 x 1.6 cm cyst. Another separate right adnexal cyst is present measuring 2.1 x 1.2 x 2.0 cm. Left ovary measures 2.9 x 2.7 x 2.5 cm for a volume of 10.3 mL and appears normal. A cyst is present in the vagina measuring 2.4 x 1.4 x 1.7 cm consistent with a Papi's duct cyst. No free fluid is present. US/US pelvic and transvaginal IMPRESSION: No worrisome interval change since the patient's prior study. Incidental note made of a small right ovarian cyst with another simple adnexal cyst along with a probable Papi's duct cyst in the vagina.
--- NOTE | 2021-03-21 14:15 | ED_ITS ---
HPI - Abdominal Pain General Chief Complaint: Abdominal Pain Stated Complaint: abd pain uti Time Seen by Provider: 03/21/21 14:04 Source: patient Mode of arrival: ambulatory Limitations: no limitations History of Present Illness HPI narrative: 41 y/o female with history of recurrent UTI's, history of pyelonephritis, hypothyrodisim, marijuana use who presents to the ED with acute onset of N/V and lower abdominal pain that started this morning. She was recently seen here on 03/15, diagnosed with UTI and sent home on PO Keflex. She states she is still on antibiotics and her symptoms had been improved until this morning. She reports she only feels like this when she has a bad urine infection. She denies current dysuria but admits to frequency and urgency. She has shaking chills and subjective fevers at home. MD elicited complaint: abdominal pain and other (vomiting ) Pertinent past history: past UTI Onset (ago): hour(s) (7) Pain Consistency: constant Location: RLQ, LLQ and suprapubic Severity: moderate Quality: stabbing Radiation: bilateral flank Migration to: no migration Exacerbating factors: eating, vomiting and movement Relieving factors: nothing Context: recent antibiotic use and history of similar episodes Associated symptoms: nausea, vomiting and chills Related Data Previous Rx's Medication Instructions Recorded ondansetron HCl [Zofran] 4 mg PO Q8H PRN #14 tab 01/04/21 doxycycline hyclate 100 mg PO BID 13 Days #26 cap 02/09/21 levofloxacin 750 mg PO DAILY 10 Days #10 tab 02/09/21 omeprazole 40 mg PO DAILY 30 Days #30 cap 02/09/21 cephalexin [Keflex] 750 mg PO QID #28 cap 03/15/21 ondansetron HCl [Zofran] 4 mg PO Q8H PRN #10 tab 03/15/21 Allergies Allergy/AdvReac Type Severity Reaction Status Date / Time amoxicillin [Amoxicillin] Allergy Intermediate HIVES Verified 02/04/21 07:59 tramadol AdvReac Intermediate SOB Verified 02/04/21 07:59 Review of Systems Review of Systems Constitutional: + Fever, + Chills ENT/Mouth: No sore throat, No Rhinorrhea, No Swallowing Difficulty Cardiovascular: No Chest Pain, No SOB, No Orthopnea, No Edema Respiratory: No Cough, No Sputum, No Wheezing, No dyspnea Gastrointestinal: + Nausea, + Vomiting, No Diarrhea, + abdominal Pain, No Hematochezia, No Melena Genitourinary: No Dysuria, + Urinary Frequency, No Hematuria Musculoskeletal: No joint pain, No Myalgias Skin: No Skin Lesions, No rash Neuro: No Weakness, No Numbness, No Dizziness, No Headache Psych: + Anxiety/Panic, No Depression Heme/Lymph: No Bruising, No Lymphadenopathy Endocrine: No Polyuria, No Polydipsia Physical Exam Vital Signs: Vital Signs: Last Vital Signs Temp 97.9 F 03/21/21 14:59 Pulse 97 03/21/21 14:59 Resp 16 03/21/21 14:59 BP 133/72 03/21/21 14:59 Pulse Ox 99 03/21/21 14:59 Body Mass Index 28.3 Appearance: Alert. Oriented X3. Shaking chills, dry heaving. Anxious Eyes: Pupils equal, round and reactive to light. ENT: Pharynx normal. Neck: Normal inspection. Neck supple. CVS: Normal heart rate and rhythm. Pulses normal. Respiratory: No respiratory distress. Breath sounds normal. Abdomen: Soft with lower abdominal tenderness, no rebound or guarding. +BS x4. Pelvic exam deferred Skin: Skin warm and dry. Normal skin color. Normal skin turgor. No rashes. Extremities: No lower extremity edema. Neuro: Oriented X 3. Moves all 4 extremities spontaneously, ambulates with steady gait. Course Course Course Narrative: 41 y/o female presenting with N/V and lower abdominal pain that started today. She is on abx for UTI - urine culture from visit on 03/15 growing 10,000-50,000 with mixed bacterial favian. Blood cultures were negative. She was on Keflex on d/c. She has had 3 CT scans this year and all of which showed no acute abdnormalities. Will get repeat UA, labs, give antiemetics and IVF and reassess. Suspect ?cyclical vomiting given recurrence of similar presentations and active marijuana use. Reevaluation(s) Reevaluation #1: No vomiting at this time. Still awaiting UA and Utox. Labs are unremarkable, stable anemia, H/H 10/32. Lactic acid mildly elevated 2.3, consistent with dehydration and vomiting. No signs of sepsis at this time. Getting IVF now, will repeat lactic. Signed out to Beverley FAITH who will assume care. MDM - Abdominal Pain Lab Data Result diagrams: 03/21/21 14:37 03/21/21 14:37 Labs: Lab Results 03/21/21 03/21/21 03/21/21 Range/Units 14:37 14:37 14:37 WBC 8.2 (4.8-10.8) X10*3/uL RBC 4.00 L (4.20-5.50) X10*6/uL Hgb 10.0 L (12.0-16.0) g/dl Hct 32.6 L (37-47) % MCV 81.5 (80-98) fL MCH 25.0 L (27.0-33.0) pg MCHC 30.7 L (31.0-35.0) g/dl RDW 17.4 H (11.0-16.0) % Plt Count 208 D (160-400) X10*3/uL MPV 12.8 H (9.4-12.3) fL Immature Gran % (Auto) Cancelled Neut % (Auto) Cancelled Lymph % (Auto) Cancelled [place] % (Auto) Cancelled Eos % (Auto) Cancelled Baso % (Auto) Cancelled Lymph # (Auto) Cancelled [place] # (Auto) Cancelled Eos # (Auto) Cancelled Baso # (Auto) Cancelled Abs Immat Gran (auto) Cancelled Absolute Neuts (auto) Cancelled Absolute Nucleated RBC 0.000 (0.0-0.012) X10*3/uL Nucleated RBC % (auto) 0.0 (0.0-0.2) /100WBC Neutrophils % (Manual) 78 H (45-73) % Band Neutrophils % 6 H (3-5) % Lymphocytes % (Manual) 7 L (20-40) % Monocytes % (Manual) 8 (2-11) % Basophils % (Manual) 1 (0-1) % Abs Neuts (Manual) 6.9 (2.2-7.9) X10*3/uL Lymphocytes # (Manual) 0.6 (0.6-4.8) X10*3/uL Monocytes # (Manual) 0.7 (0.0-1.2) X10*3/uL Basophils # (Manual) 0.1 (0.0-0.3) X10*3/uL Platelet Estimate NORMAL (NORMAL) Plt Morphology Comment NORMAL RBC Morphology NORMAL Ovalocytes 1+ (5-14) /OIF Stomatocytes 1+ (5-14) /OIF Hold Blue Top SEE NOTE Sodium 140 (135-145) mmol/L Potassium 3.7 (3.3-5.1) mmol/L Chloride 105 (96-108) mmol/L Carbon Dioxide 27 (22-29) mmol/L Anion Gap 12 (12-20) BUN 15 (9-16) mg/dL Creatinine 0.75 (0.5-1.4) mg/dL Estim Creat Clear Calc 95.8 Estimated GFR > 60 Random Glucose 104 (60-115) mg/dL Lactic Acid (0.5-2.0) mmol/L Calcium 9.1 D (8.4-10.2) mg/dL Magnesium 2.0 (1.6-2.6) mg/dL Total Bilirubin 0.3 (0.0-1.0) mg/dL Direct Bilirubin 0.2 (0.0-0.5) mg/dL AST 16 (5-31) U/L ALT 18 (0-31) U/L Alkaline Phosphatase 59 (39-117) U/L Total Protein 7.7 (6.5-8.0) g/dL Albumin 4.2 (3.5-5.0) g/dL 03/21/21 Range/Units 14:37 WBC (4.8-10.8) X10*3/uL RBC (4.20-5.50) X10*6/uL Hgb (12.0-16.0) g/dl Hct (37-47) % MCV (80-98) fL MCH (27.0-33.0) pg MCHC (31.0-35.0) g/dl RDW (11.0-16.0) % Plt Count (160-400) X10*3/uL MPV (9.4-12.3) fL Immature Gran % (Auto) Neut % (Auto) Lymph % (Auto) [place] % (Auto) Eos % (Auto) Baso % (Auto) Lymph # (Auto) [place] # (Auto) Eos # (Auto) Baso # (Auto) Abs Immat Gran (auto) Absolute Neuts (auto) Absolute Nucleated RBC (0.0-0.012) X10*3/uL Nucleated RBC % (auto) (0.0-0.2) /100WBC Neutrophils % (Manual) (45-73) % Band Neutrophils % (3-5) % Lymphocytes % (Manual) (20-40) % Monocytes % (Manual) (2-11) % Basophils % (Manual) (0-1) % Abs Neuts (Manual) (2.2-7.9) X10*3/uL Lymphocytes # (Manual) (0.6-4.8) X10*3/uL Monocytes # (Manual) (0.0-1.2) X10*3/uL Basophils # (Manual) (0.0-0.3) X10*3/uL Platelet Estimate (NORMAL) Plt Morphology Comment RBC Morphology Ovalocytes /OIF Stomatocytes /OIF Hold Blue Top Sodium (135-145) mmol/L Potassium (3.3-5.1) mmol/L Chloride (96-108) mmol/L Carbon Dioxide (22-29) mmol/L Anion Gap (12-20) BUN (9-16) mg/dL Creatinine (0.5-1.4) mg/dL Estim Creat Clear Calc Estimated GFR Random Glucose (60-115) mg/dL Lactic Acid 2.3 H* (0.5-2.0) mmol/L Calcium (8.4-10.2) mg/dL Magnesium (1.6-2.6) mg/dL Total Bilirubin (0.0-1.0) mg/dL Direct Bilirubin (0.0-0.5) mg/dL AST (5-31) U/L ALT (0-31) U/L Alkaline Phosphatase (39-117) U/L Total Protein (6.5-8.0) g/dL Albumin (3.5-5.0) g/dL Discharge Plan Discharge Prescriptions: No Action ondansetron HCl [Zofran] 4 mg tablet 4 mg PO Q8H PRN (Reason: nausea and vomiting) Qty: 14 RF: 0 omeprazole 40 mg capsule,delayed release(DR/EC) 40 mg PO DAILY 30 Days Qty: 30 RF: 0 doxycycline hyclate 100 mg capsule 100 mg PO BID 13 Days Qty: 26 RF: 0 levofloxacin 750 mg tablet 750 mg PO DAILY 10 Days Qty: 10 RF: 0 ondansetron HCl [Zofran] 4 mg tablet 4 mg PO Q8H PRN (Reason: nausea and vomiting) Qty: 10 RF: 0 cephalexin [Keflex] 750 mg capsule 750 mg PO QID Qty: 28 RF: 0 PMFSH Past Medical History Attestation statement: The following information was validated with the patient. Medical History Abscess Cyclical vomiting Hidradenitis suppurativa Hypothyroidism Surgical History Tubal ligation status Family History Family History Other Heart disease Social History Social History Household Members: Children Housing: House Alcohol intake: never Smoking Status: Current every day smoker Tobacco Type: Cigarette Cigarettes Per Day: 3 Years Smoked: 20 Second Hand Smoke Exposure: No Use of substances other than those prescribed or required for medical reasons: No Substance Use Type: Marijuana Advance Directives: Yes Advance Directives on File: Yes Advance Directives Date on File: 01/02/21 Patient : No service: No Current occupational status: employed
[2021-03-21] MEDS: 0.9 % Sodium Chloride 1,000 ML 999 ML IVCONT ×2 (14:38→17:06)
[2021-03-21] MEDS: ondansetron HCL 4 MG/2 ML VIAL IVPUSH ×2 (14:38→23:38)
[2021-03-21] MEDS: diphenhydrAMINE HCL 50 MG/ML VIAL 25 MG IVPUSH (14:38)
[2021-03-21 15:15] LABS: Lactic Acid 2.3 mmol/L (0.5-2.0)
[2021-03-21 15:18] LABS: Alanine Aminotransferase 18 U/L (0-31); Albumin Level 4.2 g/dL (3.5-5.0); Alkaline Phosphatase 59 U/L (39-117); Anion Gap 12 (12-20); Aspartate Amino Transferase 16 U/L (5-31); Bilirubin Direct 0.2 mg/dL (0.0-0.5); Bilirubin Total 0.3 mg/dL (0.0-1.0); Blood Urea Nitrogen 15 mg/dL (9-16); Calcium 9.1 mg/dL (8.4-10.2); Carbon Dioxide 27 mmol/L (22-29); Chloride 105 mmol/L (96-108); Creatinine Clr Calc Pharmacy 95.8; Estimated Glomerular Filt Rate > 60; Glucose Random 104 mg/dL (60-115); Potassium 3.7 mmol/L (3.3-5.1); Sodium 140 mmol/L (135-145); Total Protein 7.7 g/dL (6.5-8.0)
[2021-03-21 15:31] LABS: Hematocrit 32.6 % (37-47); Mean Corpuscular HGB Conc 30.7 g/dl (31.0-35.0); Mean Corpuscular Volume 81.5 fL (80-98); Mean Platelet Volume 12.8 fL (9.4-12.3); Platelet Count 208 X10*3/uL (160-400); Red Cell Distribution Width 17.4 % (11.0-16.0)
[2021-03-21 15:34] LABS: WBC ABN SCTR FOR CBC 1
[2021-03-21 15:35] LABS: White Blood Count 8.2 X10*3/uL (4.8-10.8)
[2021-03-21] MEDS: Ketorolac Tromethamine 30 MG/ML VIAL IVPUSH (15:43)
[2021-03-21 15:45] LABS: Band Neutrophils Percent 6 % (3-5); Basophils Abs Manual 0.1 X10*3/uL (0.0-0.3); Basophils Percent Manual 1 % (0-1); Lymphocytes Absolute Manual 0.6 X10*3/uL (0.6-4.8); Lymphocytes Percent Manual 7 % (20-40); Monocytes Absolute Manual 0.7 X10*3/uL (0.0-1.2); Monocytes Percent Manual 8 % (2-11); Neutrophils Absolute Manual 6.9 X10*3/uL (2.2-7.9); Neutrophils Percent Manual 78 % (45-73)
[2021-03-21 15:46] LABS: Platelet Estimate NORMAL (NORMAL); Platelet Morphology Comment NORMAL; RBC Morphology NORMAL
[2021-03-21 15:47] LABS: Ovalocytes 1+ (5-14) /OIF; Stomatocytes 1+ (5-14) /OIF
[2021-03-21 16:49] LABS: Reflex Lactate? Lactic Acid Added
[2021-03-21] MEDS: Acetaminophen 325 MG TABLET 650 MG PO (17:38)
--- NOTE | 2021-03-21 17:39 | PC.NURSE ---
Pt tolerating po well.
[2021-03-21 17:49] LABS: ~Lactic Acid-LAB USE ONLY 1.8 mmol/L (0.5-2.0)
[2021-03-21] MEDS: Morphine Sulfate 2 MG/ML CARTRIDGE IVPUSH (18:47)
[2021-03-21 19:00] LABS: Glucose Urine UA NEG (NEG); Leukocyte Esterase Urine TRACE (NEG); Nitrite Urine NEG (NEG); PH 8.5 (5.0-8.0); UACC Culture Trigger YES; Urine Blood TRACE (NEG); Urine Ketones 5 MG/DL (NEG); Urine Protein NEG (NEG-TRACE)
[2021-03-21 19:10] LABS: Appearance Urine CLEAR; Color Urine YELLOW
[2021-03-21 19:12] LABS: Bacteria Urine 1+ /LPF; Mucus Urine 1+ /LPF; Squamous Epithelial Cell Urine 2+ /LPF; UPreg QC Valid YES; Urine Pregnancy NEGATIVE (NEGATIVE)
[2021-03-21 19:35] LABS: Amphetamine Screen Urine Not Detected (Not Detect); Barbiturates, Urine Not Detected (Not Detect); Benzodiazepines Screen Urine Not Detected (Not Detect); Cannabinoid Screen Urine POSITIVE (Not Detect); Cocaine Screen Urine Not Detected (Not Detect); Opiate Screen Urine Not Detected (Not Detect); Phencyclidine Screen Urine Not Detected (Not Detect)
--- NOTE | 2021-03-21 20:47 | PC.NURSE ---
Pt aaox4, resting on stretcher in NAD, c/o 10/10 abd pain and low back pain. Pt IVF complete. Pt states I'm hot, then I'm cold, then I'm hot. Pt also assisted to bathroom without incidence. Pt stretcher is in lowest locked position, rails raised.
--- NOTE | 2021-03-21 20:50 | PC.NURSE ---
Stephy PACK made aware of pt's pain, states pt was recently medicated with morphine and no intervention at this time.
--- NOTE | 2021-03-21 21:05 | PC.NURSE ---
Pt asleep on stretcher in nad, breathing with ease on RA. Pt without nonverbal indicators of pain.
--- NOTE | 2021-03-21 22:05 | P.HPHOSP_ITS ---
History of Present Illness Date of Service: 03/21/21 Chief Complaint: Nausea/vomiting/abdominal discomfort. 41-year-old female UTI/pyelonephritis, history of cannabis use presented to the hospital with a chief complaint nausea vomiting and abdominal discomfort. Patient mentioned that she has been having nausea and vomiting the past few days, multiple episodes, denies any blood. Mentions she is not able to keep anything down. Also complains of bilateral lower abdominal pain more so on the left flank area; patient mentioned that she was in the ER few days ago when she was diagnosed with UTI and was given antibiotics but patient was unable to keep the antibiotics down secondary to nausea and vomiting. Also complains of chills. Mention that she uses cannabis but has not used in the past few days. Denies any chest pain palpitations. Denies any headaches numbness tingling. Denies any diarrhea. Review of all other systems is negative except mentioned above ER course: Per ER team patient noted to have abdominal discomfort, nausea and vomiting; patient was given Zofran and pain medication couple times with no significant improvement. Renal ultrasound was done pending. Patient urinalysis was sli ghtly abnormal given prior history of Enterococcus-patient was started on levofloxacin. [facility] Medical History Abscess Cyclical vomiting Hidradenitis suppurativa Hypothyroidism Family History Other Heart disease Surgical History Tubal ligation status Social History Household Members: Children Housing: House Do you presently have visiting nurse or other home services: No Alcohol intake: unknown Smoking Status: Current every day smoker Tobacco Type: Cigarette Cigarettes Per Day: 3 Years Smoked: 20 Second Hand Smoke Exposure: Yes Substance Use Type: Marijuana Advance Directives Date on File: 01/02/21 service: No Current occupational status: employed Meds Allergies Allergy/AdvReac Type Severity Reaction Status Date / Time amoxicillin [Amoxicillin] Allergy Intermediate HIVES Verified 04/04/21 11:11 tramadol AdvReac Intermediate SOB Verified 04/04/21 11:11 Active Medications: Current Medications Generic Name Dose Route Start Last Admin Trade Name Freq PRN Reason Stop Dose Admin Dextrose/Sodium Chloride 1,000 mls @ 100 mls/hr 03/21/21 22:15 D51/2ns IVCONT .Q10H [facility] Ondansetron HCl 4 mg 03/21/21 22:03 Ondansetron Hcl 4 Mg/2 Ml Vial IVPUSH Q8H PRN Nausea and Vomiting Pharmacy Consult 1 each 03/21/21 21:54 Consult Rx Perform Med Rec MISCELLANE ONCE PRN Consult order Senna 17.2 mg 03/21/21 22:03 Sennosides 8.6 Mg Tablet PO BEDTIME PRN Constipation Sodium Chloride 3 ml 03/22/21 00:00 0.9 % Sodium Chloride Flush 3 Ml Syringe IVFLUSH QSHIFT [facility] Home Medications Medication Instructions Recorded Confirmed Last Taken Type acetaminophen 2 tab PO QID PRN 03/21/21 03/24/21 Unknown History doxycycline hyclate 100 mg tablet 100 mg PO BID 04/04/21 Unknown History ferrous sulfate 324 mg (65 mg 324 mg PO BID 04/04/21 Unknown History iron) tablet,delayed release metronidazole 500 mg tablet 500 mg PO BID 04/04/21 Unknown History prochlorperazine 25 mg rectal 0 mg NE 04/04/21 Unknown History suppository Physical Exam Vital Signs and Narrative: Vital Signs: Last Vital Signs Temp 98.8 F 03/21/21 20:49 Pulse 95 03/21/21 20:49 Resp 22 H 03/21/21 20:49 BP 177/91 H 03/21/21 20:49 Pulse Ox 96 03/21/21 20:49 Body Mass Index 28.3 Gen: Appears be in no acute distress HEENT: NCAT, Moist mucosa. Pulmonary: Vesicular breath sounds, fair air entry CVS: Normal S1-S2 Abdomen: BS+, Soft, tender in the bilateral lower quadrants; no guarding no rigidity. Mild CVA tenderness positive on both sides. Extremities: Warm well perfused Neuro: Alert and awake. Results Labs CBC and Chem 7: 03/22/21 09:33 03/22/21 09:33 Labs: Laboratory Results - last 24 hr 03/21/21 03/21/21 03/21/21 14:37 14:37 14:37 MCV 81.5 MCH 25.0 L MCHC 30.7 L RDW 17.4 H Plt Count 208 D MPV 12.8 H Immature Gran % (Auto) Cancelled Neut % (Auto) Cancelled Lymph % (Auto) Cancelled [place] % (Auto) Cancelled Eos % (Auto) Cancelled Baso % (Auto) Cancelled Lymph # (Auto) Cancelled [place] # (Auto) Cancelled Eos # (Auto) Cancelled Baso # (Auto) Cancelled Abs Immat Gran (auto) Cancelled Absolute Neuts (auto) Cancelled Absolute Nucleated RBC 0.000 Nucleated RBC % (auto) 0.0 Neutrophils % (Manual) 78 H Band Neutrophils % 6 H Lymphocytes % (Manual) 7 L Monocytes % (Manual) 8 Basophils % (Manual) 1 Abs Neuts (Manual) 6.9 Lymphocytes # (Manual) 0.6 Monocytes # (Manual) 0.7 Basophils # (Manual) 0.1 Platelet Estimate NORMAL Plt Morphology Comment NORMAL RBC Morphology NORMAL Ovalocytes 1+ (5-14) Stomatocytes 1+ (5-14) Hold Blue Top SEE NOTE Anion Gap 12 Estim Creat Clear Calc 95.8 Estimated GFR > 60 Random Glucose 104 Lactic Acid Lactic Acid Fup @ 2Hr Calcium 9.1 D Magnesium 2.0 Total Bilirubin 0.3 Direct Bilirubin 0.2 AST 16 ALT 18 Alkaline Phosphatase 59 Total Protein 7.7 Albumin 4.2 Urine Color Urine Appearance Urine pH Ur Specific [place] Urine Protein Urine Glucose (UA) Urine Ketones Urine Blood Urine Nitrite Ur Leukocyte Esterase Urine RBC Urine WBC Ur Squamous Epith Cells Urine Bacteria Urine Mucus Urine Test Urine Opiates Screen Ur Barbiturates Screen Ur Phencyclidine Scrn Ur Amphetamines Screen U Benzodiazepines Scrn Urine Cocaine Screen U Marijuana (THC) Screen 03/21/21 03/21/21 03/21/21 14:37 17:05 18:49 MCV MCH MCHC RDW Plt Count MPV Immature Gran % (Auto) Neut % (Auto) Lymph % (Auto) [place] % (Auto) Eos % (Auto) Baso % (Auto) Lymph # (Auto) [place] # (Auto) Eos # (Auto) Baso # (Auto) Abs Immat Gran (auto) Absolute Neuts (auto) Absolute Nucleated RBC Nucleated RBC % (auto) Neutrophils % (Manual) Band Neutrophils % Lymphocytes % (Manual) Monocytes % (Manual) Basophils % (Manual) Abs Neuts (Manual) Lymphocytes # (Manual) Monocytes # (Manual) Basophils # (Manual) Platelet Estimate Plt Morphology Comment RBC Morphology Ovalocytes Stomatocytes Hold Blue Top Anion Gap Estim Creat Clear Calc Estimated GFR Random Glucose Lactic Acid 2.3 H* Lactic Acid Fup @ 2Hr 1.8 Calcium Magnesium Total Bilirubin Direct Bilirubin AST ALT Alkaline Phosphatase Total Protein Albumin Urine Color YELLOW Urine Appearance CLEAR Urine pH 8.5 H Ur Specific [place] 1.020 Urine Protein NEG Urine Glucose (UA) NEG Urine Ketones 5 Urine Blood TRACE Urine Nitrite NEG Ur Leukocyte Esterase TRACE H Urine RBC 1-4 Urine WBC 10-14 H Ur Squamous Epith Cells 2+ Urine Bacteria 1+ Urine Mucus 1+ Urine Test Urine Opiates Screen Ur Barbiturates Screen Ur Phencyclidine Scrn Ur Amphetamines Screen U Benzodiazepines Scrn Urine Cocaine Screen U Marijuana (THC) Screen 03/21/21 03/21/21 18:49 18:49 MCV MCH MCHC RDW Plt Count MPV Immature Gran % (Auto) Neut % (Auto) Lymph % (Auto) [place] % (Auto) Eos % (Auto) Baso % (Auto) Lymph # (Auto) [place] # (Auto) Eos # (Auto) Baso # (Auto) Abs Immat Gran (auto) Absolute Neuts (auto) Absolute Nucleated RBC Nucleated RBC % (auto) Neutrophils % (Manual) Band Neutrophils % Lymphocytes % (Manual) Monocytes % (Manual) Basophils % (Manual) Abs Neuts (Manual) Lymphocytes # (Manual) Monocytes # (Manual) Basophils # (Manual) Platelet Estimate Plt Morphology Comment RBC Morphology Ovalocytes Stomatocytes Hold Blue Top Anion Gap Estim Creat Clear Calc Estimated GFR Random Glucose Lactic Acid Lactic Acid Fup @ 2Hr Calcium Magnesium Total Bilirubin Direct Bilirubin AST ALT Alkaline Phosphatase Total Protein Albumin Urine Color Urine Appearance Urine pH Ur Specific [place] Urine Protein Urine Glucose (UA) Urine Ketones Urine Blood Urine Nitrite Ur Leukocyte Esterase Urine RBC Urine WBC Ur Squamous Epith Cells Urine Bacteria Urine Mucus Urine Test NEGATIVE Urine Opiates Screen Not Detected Ur Barbiturates Screen Not Detected Ur Phencyclidine Scrn Not Detected Ur Amphetamines Screen Not Detected U Benzodiazepines Scrn Not Detected Urine Cocaine Screen Not Detected U Marijuana (THC) Screen POSITIVE H Assessment and Plan (1) UTI (urinary tract infection): Qualifiers: Hematuria presence: without hematuria Urinary tract infection type: acute cystitis Qualified Code(s): N30.00 - Acute cystitis without hematuria Status: Acute 41-year-old female with a past medical history hypothyroidism, history of UTI, cannabis use presented to the hospital with a chief complaint of nausea vomiting and abdominal discomfort. Patient was recently diagnosed with UTI. Admitted for further management. UTI: Continue Levaquin. Follow up cultures. Patient bilateral CVA tenderness; pending renal ultrasound. Tylenol p.r.n.. Nausea/vomiting: Question cyclic vomiting syndrome. Supportive care. Zofran p.r.n.. EKG to check QTc DVT prophylaxis: SCD boots Code status: Full code
--- NOTE | 2021-03-21 22:54 | PC.NURSE ---
This RN TT inpatient provider asking is duplicate order for BC x 2 is necessary, he informs this RN that it is not as BC x 2 have already been obtained and are currently processing. This RN requests provider to cancel order.
[2021-03-21] MEDS: HYDROmorphone HCl 0.5 MG/0.5 ML SYRINGE IVPUSH (23:38)
[2021-03-21] MEDS: levoFLOXacin/D5W 750 MG/150 ML PIGGYBACK 100 MG IV (23:38)
[2021-03-21] MEDS: Dextrose 5 % and 0.45 % NaCl 1,000 ML 100 ML IVCONT (23:42)
[2021-03-22] VITALS (9 sets, daily range): BP systolic 121–140; BP diastolic 75–94; PULSE 60–90; RESP 14–19; TEMP 36.4–37.2; O2SAT 97–100
[2021-03-22 04:38] LABS: COVID-19 Test Negative (Negative); IDNOW Serial# 9DD0AD1C
[2021-03-22] MEDS: HYDROmorphone HCl 0.5 MG/0.5 ML SYRINGE IVPUSH ×2 (06:23→12:47)
[2021-03-22] MEDS: Dextrose 5 % and 0.45 % NaCl 1,000 ML 100 ML IVCONT ×2 (09:33→20:29)
[2021-03-22 10:24] LABS: MANUAL DIFF FLAG NO
[2021-03-22 10:40] LABS: Basophils Percent Auto 0.2 % (0-2); Eosinophils Absolute Auto 0.1 X10*3/uL (0.0-0.4); Eosinophils Percent Auto 1.1 % (0-4); Hematocrit 28.6 % (37-47); Hemoglobin 8.7 g/dl (12.0-16.0); Imm Gran Abs Auto 0.01 X10*3/uL (0.00-0.03); Imm Gran Pct Auto 0.2 % (0.0-0.4); Lymphocytes Absolute Auto 1.9 X10*3/uL (1.2-4.9); Lymphocytes Percent Auto 41.3 % (20-40); Mean Corpuscular HGB Conc 30.4 g/dl (31.0-35.0); Mean Corpuscular Hemoglobin 24.6 pg (27.0-33.0); Mean Corpuscular Volume 80.8 fL (80-98); Mean Platelet Volume 12.8 fL (9.4-12.3); Monocytes Absolute Auto 0.6 X10*3/uL (0.1-1.2); Monocytes Percent Auto 13.5 % (2-11); Neutrophils Percent Auto 43.7 % (45-73); Platelet Count 176 X10*3/uL (160-400); Red Blood Count 3.54 X10*6/uL (4.20-5.50); Red Cell Distribution Width 17.4 % (11.0-16.0); White Blood Count 4.5 X10*3/uL (4.8-10.8)
[2021-03-22 10:57] LABS: Anion Gap 10 (12-20); Blood Urea Nitrogen 8 mg/dL (9-16); Calcium 8.6 mg/dL (8.4-10.2); Carbon Dioxide 27 mmol/L (22-29); Chloride 102 mmol/L (96-108); Creatinine Clr Calc Pharmacy 102.6; Estimated Glomerular Filt Rate > 60; Glucose Random 94 mg/dL (60-115); Potassium 3.2 mmol/L (3.3-5.1); Sodium 136 mmol/L (135-145)
--- NOTE | 2021-03-22 12:04 | MHC.CM.PN ---
met with pt who is indepedent cm intervention is not indicated pt will be arranging her own transportaion home
--- NOTE | 2021-03-22 13:46 | HO.PM.IMPN ---
Subjective Subjective Date of Service: 03/22/21 Interval History: improving, wants to try solids Cardiovascular Cardiovascular: Reports no additional cardiovascular complaints Genitourinary Genitourinary: Reports no additional female genitourinary complaints Physical Exam Vital Signs: Vital Signs: Last Vital Signs Temp 98.2 F 03/22/21 11:12 Pulse 69 03/22/21 11:12 Resp 19 03/22/21 11:12 BP 140/84 H 03/22/21 11:12 Pulse Ox 98 03/22/21 11:12 Body Mass Index 28.3 General: AO X 3, no acute distress Resp: CTA bilateral CVS: S1,S2,RRR GI: soft, non tender, non distended Neuro: motor grossly intact Psych: appropriate affect Objective Data Current Medications Generic Name Dose Route Start Last Admin Trade Name Freq PRN Reason Stop Dose Admin Acetaminophen 650 mg 03/21/21 22:09 Acetaminophen 325 Mg Tablet PO Q6H PRN pain/fever Hydromorphone HCl 0.5 mg 03/21/21 22:09 03/22/21 12:47 Hydromorphone Hcl 0.5 Mg/0.5 Ml Syringe IVPUSH 0.5 mg Q6H PRN Administration Breakthrough Pain Dextrose/Sodium Chloride 1,000 mls @ 100 mls/hr 03/21/21 22:15 03/22/21 09:33 D51/2ns IVCONT 100 mls/hr .Q10H VICTOR M Administration Ondansetron HCl 4 mg 03/21/21 22:03 03/21/21 23:38 Ondansetron Hcl 4 Mg/2 Ml Vial IVPUSH 4 mg Q8H PRN Administration Nausea and Vomiting Pharmacy Consult 1 each 03/21/21 21:54 Consult Rx Perform Med Rec MISCELLANE ONCE PRN Consult order Senna 17.2 mg 03/21/21 22:03 Sennosides 8.6 Mg Tablet PO BEDTIME PRN Constipation Sodium Chloride 3 ml 03/22/21 00:00 03/22/21 09:34 0.9 % Sodium Chloride Flush 3 Ml Syringe IVFLUSH Not Given QSHIFT [facility] Labs CBC & Chem 7: 03/22/21 09:33 03/22/21 09:33 Microbiology Microbiology Results: Microbiology 03/21/21 19:15 Urine clean catch - Clean Catch Midstream Urine Culture - Preliminary Culture in progress. Assessment and Plan (1) Intractable nausea and vomiting: Status: Acute Assessment and Plan: 41F presented with abdominal pain, nasuea and vomitting cyclic vomiting improving, antiemetics, advance diet as toelrated doubt uti dc levaquin
[2021-03-22] MEDS: oxyCODONE HCl Immed Release 5 MG TABLET PO ×2 (16:56→21:08)
[2021-03-22] MEDS: Acetaminophen 325 MG TABLET 650 MG PO (21:08)
[2021-03-22] MEDS: 0.9 % Sodium Chloride Flush 3 ML SYRINGE IVFLUSH (23:19)
[2021-03-23] MEDS: oxyCODONE HCl Immed Release 5 MG TABLET PO ×3 (00:55→11:29)
[2021-03-23 03:51] VITALS: BP 135/93; PULSE 60; RESP 16; TEMP 36.7; O2SAT 99
[2021-03-23] MEDS: ondansetron HCL 4 MG/2 ML VIAL IVPUSH (06:05)
[2021-03-23] MEDS: Dextrose 5 % and 0.45 % NaCl 1,000 ML 100 ML IVCONT (06:08)
[2021-03-23 07:07] VITALS: BP 113/77; PULSE 80; RESP 18; TEMP 36.6; O2SAT 100
[2021-03-23] MEDS: 0.9 % Sodium Chloride Flush 3 ML SYRINGE IVFLUSH (09:12)
--- NOTE | 2021-03-23 10:26 | HO.PM.IMPN ---
Subjective Subjective Date of Service: 03/23/21 Interval History: still with severe pain, more pelvic, tolerated minimal solid foods Cardiovascular Cardiovascular: Reports no additional cardiovascular complaints Genitourinary Genitourinary: Reports no additional female genitourinary complaints Physical Exam Vital Signs: Vital Signs: Last Vital Signs Temp 98 F 03/23/21 07:07 Pulse 80 03/23/21 07:07 Resp 18 03/23/21 07:07 BP 113/77 03/23/21 07:07 Pulse Ox 100 03/23/21 07:07 Body Mass Index 28.3 General: AO X 3, no acute distress Resp: CTA bilateral CVS: S1,S2,RRR GI: soft, non tender, non distended Neuro: motor grossly intact Psych: appropriate affect Objective Data Current Medications Generic Name Dose Route Start Last Admin Trade Name Freq PRN Reason Stop Dose Admin Acetaminophen 650 mg 03/21/21 22:09 03/22/21 21:08 Acetaminophen 325 Mg Tablet PO 650 mg Q6H PRN Administration pain/fever Dextrose/Sodium Chloride 1,000 mls @ 100 mls/hr 03/21/21 22:15 03/23/21 06:08 D51/2ns IVCONT 100 mls/hr .Q10H VICTOR M Administration Ondansetron HCl 4 mg 03/21/21 22:03 03/23/21 06:05 Ondansetron Hcl 4 Mg/2 Ml Vial IVPUSH 4 mg Q8H PRN Administration Nausea and Vomiting Oxycodone HCl 5 mg 03/22/21 16:48 03/23/21 05:57 Oxycodone Hcl Immed Release 5 Mg Tablet PO 5 mg Q4H PRN Administration pain Pharmacy Consult 1 each 03/21/21 21:54 Consult Rx Perform Med Rec MISCELLANE ONCE PRN Consult order Senna 17.2 mg 03/21/21 22:03 Sennosides 8.6 Mg Tablet PO BEDTIME PRN Constipation Sodium Chloride 3 ml 03/22/21 00:00 03/23/21 09:12 0.9 % Sodium Chloride Flush 3 Ml Syringe IVFLUSH 3 ml QSHIFT VICTOR M Administration Labs CBC & Chem 7: 03/22/21 09:33 03/22/21 09:33 Microbiology Microbiology Results: Microbiology 03/21/21 23:00 Blood - Venous Blood Culture - Preliminary No growth after 24 hours. 03/21/21 23:00 Blood - Venous Blood Culture - Preliminary No growth after 24 hours. 03/21/21 15:09 Blood - Venous Blood Culture - Preliminary No growth after 24 hours. 03/21/21 14:37 Blood - Venous Blood Culture - Preliminary No growth after 24 hours. 03/21/21 19:15 Urine clean catch - Clean Catch Midstream Urine Culture - Preliminary Culture in progress. 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
[2021-03-23 10:52] VITALS: BP 115/78; PULSE 82; RESP 18; TEMP 36.6; O2SAT 99
--- NOTE | 2021-03-23 11:52 | PM.GYNCN ---
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 She was discharged home with antibiotics. She reports that she continued vomiting at home; however, her PCP encouraged her to stay home and continue the Abx. She reports that she started feeling some improvement until two days ago, when she started experiencing fevers and chills and worsening of her pain. She reports that her pain was initially flank pain; however, since she has been in the hospital it has moved and is now primarily pelvic in the front and wrapping around to her sides and back. She finds it difficult to describe the pain but reports that it is intermittent; sometimes it is a sharp, stabbing pain. At other times, the pain is similar to menstrual cramping but ten times worse. She reports that when she used the bathroom thinking she needed to have a bowel movement, she passed some mucus-y discharge with some blood in it. She has not noticed any other vaginal discharge. Her periods are regular, monthly. She believes her LMP was 5/4. She reports that since her BTL was done, her cramping has been very bad and her bleeding has increased to 5 to 7 days. She reports that the bleeding is very heavy and she changes her super tampons q1-2hrs during the heavy days. She is sexually active with one monogamous partner. She was last seen by myself during her admission at the end of January, at which time pelvic US was normal but she was tender on pelvic exam and was treated for PID. She reports that she did not complete the last few days of her outpatient antibiotics. She is currently not vomiting and reports that she has not been since 11:30pm the night before. cc:: CC: Matt Fermin MD REWINDER OPERATOR - Review of Systems Review of Systems ROS Unobtainable: All systems reviewed & are unremarkable except as noted in HPI and below OB PMFSH Past Medical History Medical History Abscess Cyclical vomiting Hidradenitis suppurativa Hypothyroidism Family History Family History Other Heart disease Surgical History Surgical History Tubal ligation status Social History Social History Household Members: Children Housing: House Alcohol intake: never Smoking Status: Current every day smoker Tobacco Type: Cigarette Cigarettes Per Day: 3 Years Smoked: 20 Smoked in Last 30 Days: Yes Second Hand Smoke Exposure: No Use of substances other than those prescribed or required for medical reasons: No Substance Use Type: Marijuana Substance Use Type Other:: last marijuana use 3 days ago Currently Displaying Signs/Symptoms of Drug Intoxication Withdrawal: No Have you been hit, kicked, punched, or otherwise hurt by someone within the past year? If so, by whom?: No Do you feel safe in your current relationship?: Yes Is there a partner from a previous relationship who is making you feel unsafe now?: No Are you made to feel afraid or neglected: No Advance Directives: Yes Advance Directives on File: Yes Advance Directives Date on File: 01/02/21 Do you have thoughts of harming others: None Do you have a plan to hurt others: No Plan Recently lost weight without trying: Yes How much weight loss: 2-13 pounds Nutrition Risks: No Nutritional Risk Patient : No service: No Current occupational status: employed Meds Allergies Allergy/AdvReac Type Severity Reaction Status Date / Time amoxicillin [Amoxicillin] Allergy Intermediate HIVES Verified 03/21/21 23:46 tramadol AdvReac Intermediate SOB Verified 03/21/21 23:46 Active Medications: Current Medications Generic Name Dose Route Start Last Admin Trade Name Freq PRN Reason Stop Dose Admin Acetaminophen 650 mg 03/21/21 22:09 03/22/21 21:08 Acetaminophen 325 Mg Tablet PO 650 mg Q6H PRN Administration pain/fever Ceftriaxone Sodium 500 mg 03/23/21 11:44 Ceftriaxone Sodium 500 Mg Vial IM 03/23/21 11:45 ONCE ONE Ceftriaxone Sodium 500 mg/ 0 mg 03/23/21 12:00 Lidocaine HCl 1 ml IM 03/23/21 12:01 ONCE ONE Ferrous Sulfate 324 mg 03/23/21 17:00 Ferrous Sulfate 324 Mg Tablet. PO BIDWM VICTOR M Dextrose/Sodium Chloride 1,000 mls @ 100 mls/hr 03/21/21 22:15 03/23/21 06:08 D51/2ns IVCONT 100 mls/hr .Q10H [facility] M Administration Ondansetron HCl 4 mg 03/21/21 22:03 03/23/21 06:05 Ondansetron Hcl 4 Mg/2 Ml Vial IVPUSH 4 mg Q8H PRN Administration Nausea and Vomiting Oxycodone HCl 5 mg 03/22/21 16:48 03/23/21 11:29 Oxycodone Hcl Immed Release 5 Mg Tablet PO 5 mg Q4H PRN Administration pain Pharmacy Consult 1 each 03/21/21 21:54 Consult Rx Perform Med Rec MISCELLANE ONCE PRN Consult order Senna 17.2 mg 03/21/21 22:03 Sennosides 8.6 Mg Tablet PO BEDTIME PRN Constipation Sodium Chloride 3 ml 03/22/21 00:00 03/23/21 09:12 0.9 % Sodium Chloride Flush 3 Ml Syringe IVFLUSH 3 ml QSHIFT [facility] Administration Home Medications Medication Instructions Recorded Confirmed Last Taken Type acetaminophen 2 tab PO QID PRN 03/21/21 03/21/21 Unknown History ibuprofen 1 tab PO Q8H PRN 03/21/21 03/21/21 Unknown History 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 Physical Exam Vitals Vital signs: Temp Pulse Resp BP Pulse Ox 98 F 82 18 115/78 99 03/23/21 10:52 03/23/21 10:52 03/23/21 10:52 03/23/21 10:52 03/23/21 10:52 Body Mass Index 28.3 Cafe Operator: Present Constitutional General Appearance: Overweight Psychiatric Orientation: to time, to place and to person Mood and Affect: normal mood and normal affect Female Genitalia (Pelvic) Bladder/Urethra: Normal meatus Vulva: No lesions Vagina: No erythema and Abnormal discharge (creamy white, pink discharge) Uterus: Normal size and Tender Adnexa/Parametria: Adnexal Mass: None 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 - Results Labs CBC & Chem 7: 03/22/21 09:33 03/22/21 09:33 Labs: Urine 03/21/21 03/21/21 Range/Units 18:49 18:49 Urine Color YELLOW Urine Appearance CLEAR Urine pH 8.5 H (5.0-8.0) Ur Specific [place] 1.020 (1.005-1.025) Urine Protein NEG (NEG-TRACE) MG/DL Urine Glucose (UA) NEG (NEG) MG/DL Urine Test NEGATIVE (NEGATIVE) Assessment and Plan (1) Pelvic inflammatory disease: Status: Acute Although it seems unlikely that this patient, with a normal pelvic US 02/07, who completed close to the full two week treatment of PID, either has continued or recurrent PID; however, with pelvic pain and uterine tenderness on bimanual exam, she meets criteria for PID treatment. I reviewed with her that I am fine with discharge home today; however, if the US does show an abscess, she would need at least 24hrs of IV antibiotics. I advised her that I think the chance of this is very low, given her recent incomplete PID treatment after her last pelvic US did not show an abscess. We agreed together that she can be discharged after her US and in the unlikely event her US does show an abscess, I would call her for readmission for IV antibiotics for the appropriate management of PID with abscess. Assuming that she will by US meet criteria for outpatient treatment, one dose of ceftriaxone 500mg IM ordered to be given prior to discharge and Rx's sent to pharmacy for two weeks of doxycycline 100mg PO BID and metronidazole 500mg PO BID. I also reviewed that hormonal contraceptives may help improve both her menstrual bleeding and pain, including pain in between her cycles if this is hormone related. I also reviewed hysteroscopy D&C, novasure ablation, hysterectomy as alternative options for management of AUB; however, she prefers to try medical management first. As her BP has been elevated in the hospital and she has not yet been evaluated by her PCP, I recommended treatment with progesterone only. Norethindrone Rx sent, as well as ferrous sulfate for treatment of anemia 2/2 abnormal uterine bleeding. I will also flag my office to schedule outpatient follow up.
--- NOTE | 2021-03-23 13:10 | P.DS_ITS ---
DS: Providers Provider Date of Service: 03/23/21 Date of admission: 03/21/21 22:00 Primary care physician: Navi Real MD Consults: 03/23/21 10:06 Consult to Obstetrics / Gynecology Routine Consulting Provider: Elton Baez Reason for consultation: pelvic pain, discharge DS: Diagnosis Discharge Diagnosis (1) Pelvic inflammatory disease: Status: Acute DS: Medications Discharge Medications Home Medications: Home Medications Medication Instructions Recorded Confirmed acetaminophen 2 tab PO QID PRN 03/21/21 03/21/21 Previous Rx's Medication Instructions Recorded ondansetron HCl [Zofran] 4 mg PO Q8H PRN #14 tab 01/04/21 doxycycline hyclate 100 mg PO BID 14 Days #28 tab 03/23/21 ferrous sulfate 324 mg PO BIDWM #60 tab 03/23/21 ibuprofen 1 tab PO Q8H PRN #60 tab 03/23/21 metronidazole 500 mg PO BID 14 Days #28 tab 03/23/21 norethindrone (contraceptive) 0.35 mg PO DAILY #84 tab 03/23/21 omeprazole 40 mg PO DAILY 30 Days #30 cap 03/23/21 DS: Summary Hospital Course Hospital Course: She was admitted for episode of cyclic vomiting. Her symptoms quickly resolved. Then patient was complaining of pelvic pain. She was recently treated for PID. She was seen by Gynecology who recommended pelvic ultrasound, 1 dose of IM ceftriaxone followed by 2 weeks of doxycycline and Flagyl to treat recurrent PID. She will follow up the ultrasound results with Gynecology, if it reveals abscess she will then be admitted for IV antibiotics. At this point patient is feeling better will be discharged home. Time Spent with Patient Time attestation: Total time spent providing and/or coordinating discharge services: Discharge coordination time: Greater than 30 minutes Quality: Stroke Does the patient have a stroke diagnosis?: No Physical Exam Vital Signs: Vital Signs: Last Vital Signs Temp 98 F 03/23/21 10:52 Pulse 82 03/23/21 10:52 Resp 18 03/23/21 10:52 BP 115/78 03/23/21 10:52 Pulse Ox 99 03/23/21 10:52 Body Mass Index 28.3 General: AO X 3, no acute distress Resp: CTA bilateral CVS: S1,S2,RRR GI: soft, non tender, non distended Neuro: motor grossly intact Psych: appropriate affect DS: Data Data Completed and Pending Labs on day of discharge: Preliminary micro results at discharge 03/21/21 23:00 Blood Culture - Preliminary Blood - Venous No growth after 24 hours. 03/21/21 23:00 Blood Culture - Preliminary Blood - Venous No growth after 24 hours. 03/21/21 15:09 Blood Culture - Preliminary Blood - Venous No growth after 24 hours. 03/21/21 14:37 Blood Culture - Preliminary Blood - Venous No growth after 24 hours. 03/21/21 19:15 Urine Culture - Preliminary Urine clean catch - Clean Catch Midstream Culture in progress. Discharge Plan Discharge Patient Disposition: Home, Self-Care Discharge Diagnosis: possible pid Referrals: Navi Real MD [Primary Care Provider] - 1 Week Discharge Medications: New doxycycline hyclate 100 mg tablet 100 mg PO BID 14 Days Qty: 28 RF: 0 metronidazole 500 mg tablet 500 mg PO BID 14 Days Qty: 28 RF: 0 ferrous sulfate 324 mg (65 mg iron) Tablet,Delayed Release (Dr/Ec) 324 mg PO BIDWM Qty: 60 RF: 3 norethindrone (contraceptive) 0.35 mg tablet 0.35 mg PO DAILY Qty: 84 RF: 3 Continued ondansetron HCl [Zofran] 4 mg tablet 4 mg PO Q8H PRN (Reason: nausea and vomiting) Qty: 14 RF: 0 acetaminophen 500 mg tablet 2 tab PO QID PRN (Reason: fever) RF: 0 ibuprofen 800 mg tablet 1 tab PO Q8H PRN (Reason: pain) Qty: 60 RF: 1 omeprazole 40 mg capsule,delayed release(DR/EC) 40 mg PO DAILY 30 Days Qty: 30 RF: 1 Discontinued cephalexin [Keflex] 750 mg capsule 750 mg PO QID Qty: 28 RF: 0 Discharge Orders: Discharge Order (Routine); Ordered 03/23/21 Ordered By: Matt Fermin Activity on Discharge: As tolerated Stand Alone Forms: Patient Portal Discharge page Care Plan Goals: recovery Health Concerns: possible pid Plan of Treatment: follow up with physiotherapist's assistant, antibiotics as prescribed Assessment: see above Patient Instructions: Abdominal Pain (ED)
--- NOTE | 2021-03-23 13:23 | MHC.CM.PN ---
Patient has been medically cleared for dc to home today, no services.
[2021-03-23] MEDS: cefTRIAXone sodium 500 MG, Lidocaine HCl 1 % MPF 1 ML IM (14:10)
[2021-03-23 14:16] LABS: CT PCR NOT DETECTED (Not Detect.); NG PCR NOT DETECTED (Not Detect.)
[2021-03-24 09:15] LABS: BV Int Neg Control Negative (Negative); BV Int Pos Control Positive (Positive)
== END 2021-03-23 14:28 | disposition home or self-care (01) | DRG 531 ==
LOC: HO.ED 19:34 → HO.EDOVER 22:13 → HO.IMC 03-22 05:24
PROVIDERS: Obstetrics & Gynecology; Physician Assistant; Admitting Provider Hospitalist; Emergency Provider Emergency Medicine; PCP Family Medicine; Visit Provider Internal Medicine
DX: N73.9 Female pelvic inflammatory disease, unspecified (principal); E03.9 Hypothyroidism, unspecified; F17.210 Nicotine dependence, cigarettes, uncomplicated; R31.9 Hematuria, unspecified; Z71.6 Tobacco abuse counseling; Z88.0 Allergy status to penicillin; Z88.6 Allergy status to analgesic agent; Z20.822 Contact with and (suspected) exposure to COVID-19; Z79.899 Other long term (current) drug therapy
CPT/HCPCS: 36415; 76775; 76830; 76856; 80048; 80076; 80307; 81001; 81003; 81025; 83605; 83735; 85007; 85025; 85027; 87040; 87086; 87088; 87186; 87480; 87491; 87510; 87591; 87635; 87660; 93005; 96374; 96375; 99285; J0696; J1170; J1200; J1885; J1956; J2270; J2405

== ENCOUNTER 2021-03-24 11:06 | Observation (INO) | payer OTHER, SELFPAY ==
[2021-03-24 11:17] VITALS: BP 170/100; PULSE 94; RESP 18; TEMP 36.4; O2SAT 100
--- NOTE | 2021-03-24 11:40 | PC.NURSE ---
pt is self inducing vomiting in waiting room. monitoring at this time. very scant vomit production at this time.
--- NOTE | 2021-03-24 13:46 | ED.NAVMDI ---
HPI - Nausea/Vomiting/Diarrhea General Chief complaint: Nausea/Vomiting/Diarrhea Stated complaint: VOMITING Time Seen by Provider: 03/24/21 12:58 Source: patient and old records reviewed Mode of arrival: ambulatory Limitations: no limitations History of Present Illness HPI Narrative: 41 yo female hx of UTI, substance abuse, cyclical vomiting, recent admit wtih DC on 03/23 for inractable n/v dx with recurrenty PID DC home on doxy and flagyl received IM ceftriaxone no abscess seen on US, pos for BV and trich on 03/23 at this time states she went home and cannot keep her medications down and began vomiting again, c/o R sided pain, denies THC use since DC MD elicited complaint: nausea, vomiting and abdominal pain Pertinent past history: cyclical vomiting Onset (ago): day(s) (1) Description of vomiting: food contents and watery Associated nausea: Yes Associated abdominal pain: Yes Location of pain: RUQ, RLQ and R flank Pain consistency: constant Severity: similar to previous episodes Quality: stabbing Exacerbating factors: none Relieving factors: none Context: recent antibiotic use Associated symptoms: loss of appetite, malaise and nausea/vomiting Related Data Home Medications Medication Instructions Recorded Confirmed acetaminophen 2 tab PO QID PRN 03/21/21 03/21/21 Previous Rx's Medication Instructions Recorded ondansetron HCl [Zofran] 4 mg PO Q8H PRN #14 tab 01/04/21 doxycycline hyclate 100 mg PO BID 14 Days #28 tab 03/23/21 ferrous sulfate 324 mg PO BIDWM #60 tab 03/23/21 ibuprofen 1 tab PO Q8H PRN #60 tab 03/23/21 metronidazole 500 mg PO BID 14 Days #28 tab 03/23/21 norethindrone (contraceptive) 0.35 mg PO DAILY #84 tab 03/23/21 omeprazole 40 mg PO DAILY 30 Days #30 cap 03/23/21 Allergies Allergy/AdvReac Type Severity Reaction Status Date / Time amoxicillin [Amoxicillin] Allergy Intermediate HIVES Verified 03/21/21 23:46 tramadol AdvReac Intermediate SOB Verified 03/21/21 23:46 Review of Systems Review of Systems: Constitutional : No Weight loss, No Fever, No Chills ENT/Mouth : No sore throat, No Rhinorrhea Eyes: No Swelling, No Redness Cardiovascular : No Chest Pain, No SOB, NoEdema Respiratory : No Cough, No Sputum, No Wheezing Gastrointestinal : Positive Nausea, Positive Vomiting, positiveno Genitourinary : No Dysuria, No Urinary Frequency, No Hematuria, No Urgency Musculoskeletal : No joint pain, No Myalgias, No Joint Swelling Skin : No Skin Lesions, No rash Neuro : No Weakness, No Numbness, No Dizziness, No Headache Psych : No Anxiety/Panic, No Depression Heme/Lymph: No Bruising, No Lymphadenopathy Endocrine : No Polyuria, No Polydipsia All other systems reviewed and are negative. Gastrointestinal: Gastrointestinal: Reports nausea PMFSH Past Medical History Attestation statement: The following information was validated with the patient. Medical History Abscess Cyclical vomiting Hidradenitis suppurativa Hypothyroidism Surgical History Tubal ligation status Family History Family History Other Heart disease Social History Social History Household Members: Children Housing: House Alcohol intake: never Smoking Status: Current every day smoker Tobacco Type: Cigarette Cigarettes Per Day: 3 Years Smoked: 20 Second Hand Smoke Exposure: No Substance Use Type: Marijuana Advance Directives: Yes Advance Directives on File: Yes Advance Directives Date on File: 01/02/21 Patient : No service: No Current occupational status: employed Physical Exam Vital Signs: Vital Signs: Last Vital Signs Temp 97.6 F 03/24/21 14:00 Pulse 79 03/24/21 14:00 Resp 18 03/24/21 14:00 BP 174/85 H 03/24/21 14:00 Pulse Ox 100 03/24/21 14:00 Body Mass Index 30.0 Appearance: Alert. Oriented X3. anxious in pain mild acute distress. Eyes: Pupils equal, round and reactive to light. ENT: Pharynx normal. Neck: Normal inspection. Neck supple. CVS: Normal heart rate and rhythm. Pulses normal. Respiratory: No respiratory distress. Breath sounds normal. Abdomen: Soft and moderate R sided ttp Skin: Skin warm and dry. pale skin color. Normal skin turgor. Extremities: No lower extremity edema. No calf ttp Neuro: Oriented X 3. No motor deficit. No sensory deficit. Course Course Course Narrative: patient is asleep and no longer throwing up after medications, plan to obtain UA and PO challenge, if she fails would admit for intractable n/v - signed out to Radha PACK MDM - Nausea/Vomiting/Diarrhea MDM Narrative Medical decision making narrative: 41 yo female hx of UTI, substance abuse, cyclical vomiting, recent admit wtih DC on 03/23 for inractable n/v dx with recurrenty PID DC home on doxy and flagyl received IM ceftriaxone no abscess seen on US, pos for BV and trich on 03/23 at this time states she went home and cannot keep her medications down and began vomiting again, c/o R sided pain, denies THC use since DC. At this time will obtain repeat labs, treat symptoms, hydrate, dispo per results and ability to tolerate home medications Lab Data Result diagrams: 03/24/21 14:08 03/24/21 14:07 Labs: Lab Results 03/24/21 03/24/21 03/24/21 Range/Units 14:07 14:07 14:08 WBC 8.8 (4.8-10.8) X10*3/uL RBC 4.31 D (4.20-5.50) X10*6/uL Hgb 10.6 L D (12.0-16.0) g/dl Hct 34.1 L (37-47) % MCV 79.1 L (80-98) fL MCH 24.6 L (27.0-33.0) pg MCHC 31.1 (31.0-35.0) g/dl RDW 17.0 H (11.0-16.0) % Plt Count 195 (160-400) X10*3/uL MPV 12.7 H (9.4-12.3) fL Immature Gran % (Auto) Cancelled Neut % (Auto) Cancelled Lymph % (Auto) Cancelled [place] % (Auto) Cancelled Eos % (Auto) Cancelled Baso % (Auto) Cancelled Lymph # (Auto) Cancelled [place] # (Auto) Cancelled Eos # (Auto) Cancelled Baso # (Auto) Cancelled Abs Immat Gran (auto) Cancelled Absolute Neuts (auto) Cancelled Absolute Nucleated RBC 0.000 (0.0-0.012) X10*3/uL Nucleated RBC % (auto) 0.0 (0.0-0.2) /100WBC Neutrophils % (Manual) 84 H (45-73) % Band Neutrophils % 0 L (3-5) % Lymphocytes % (Manual) 11 L (20-40) % Monocytes % (Manual) 5 (2-11) % Abs Neuts (Manual) 7.4 (2.2-7.9) X10*3/uL Lymphocytes # (Manual) 1.0 (0.6-4.8) X10*3/uL Monocytes # (Manual) 0.4 (0.0-1.2) X10*3/uL Platelet Estimate NORMAL (NORMAL) Plt Morphology Comment NORMAL RBC Morphology NOTED Hypochromasia 1+ (5-14) /OIF Microcytosis 1+ (5-14) /OIF Tear Drop Cells 1+ (0-2) /OIF Ovalocytes 1+ (5-14) /OIF Hold Blue Top SEE NOTE Sodium 138 (135-145) mmol/L Potassium 3.3 (3.3-5.1) mmol/L Chloride 102 (96-108) mmol/L Carbon Dioxide 24 (22-29) mmol/L Anion Gap 15 (12-20) BUN 9 (9-16) mg/dL Creatinine 0.78 (0.5-1.4) mg/dL Estim Creat Clear Calc 94.8 Estimated GFR > 60 Random Glucose 110 (60-115) mg/dL Calcium 9.4 D (8.4-10.2) mg/dL Magnesium 1.9 (1.6-2.6) mg/dL Total Bilirubin 0.6 (0.0-1.0) mg/dL Direct Bilirubin 0.3 (0.0-0.5) mg/dL AST 18 (5-31) U/L ALT 17 (0-31) U/L Alkaline Phosphatase 66 (39-117) U/L Total Protein 8.2 H (6.5-8.0) g/dL Albumin 4.5 (3.5-5.0) g/dL Lipase 62 (8-78) U/L Discharge Plan Discharge Clinical Impression: Vomiting Qualifiers: Vomiting type: unspecified Vomiting Intractability: unspecified Nausea presence: unspecified Qualified Code(s): R11.10 - Vomiting, unspecified Prescriptions: No Action ondansetron HCl [Zofran] 4 mg tablet 4 mg PO Q8H PRN (Reason: nausea and vomiting) Qty: 14 RF: 0 acetaminophen 500 mg tablet 2 tab PO QID PRN (Reason: fever) RF: 0 doxycycline hyclate 100 mg tablet 100 mg PO BID 14 Days Qty: 28 RF: 0 metronidazole 500 mg tablet 500 mg PO BID 14 Days Qty: 28 RF: 0 ferrous sulfate 324 mg (65 mg iron) Tablet,Delayed Release (Dr/Ec) 324 mg PO BIDWM Qty: 60 RF: 3 norethindrone (contraceptive) 0.35 mg tablet 0.35 mg PO DAILY Qty: 84 RF: 3 ibuprofen 800 mg tablet 1 tab PO Q8H PRN (Reason: pain) Qty: 60 RF: 1 omeprazole 40 mg capsule,delayed release(DR/EC) 40 mg PO DAILY 30 Days Qty: 30 RF: 1
[2021-03-24 14:00] VITALS: BP 174/85; PULSE 79; RESP 18; TEMP 36.4; O2SAT 100
[2021-03-24] MEDS: diphenhydrAMINE HCL 50 MG/ML VIAL 25 MG IVPUSH (14:12)
[2021-03-24] MEDS: LORazepam 2 MG/ML VIAL 1 MG IVPUSH ×2 (14:12→22:46)
[2021-03-24] MEDS: 0.9 % Sodium Chloride 1,000 ML 999 ML IVCONT (14:13)
[2021-03-24] MEDS: Haloperidol Lactate 5 MG/ML VIAL IM (14:13)
[2021-03-24 14:40] LABS: Alanine Aminotransferase 17 U/L (0-31); Albumin Level 4.5 g/dL (3.5-5.0); Alkaline Phosphatase 66 U/L (39-117); Anion Gap 15 (12-20); Aspartate Amino Transferase 18 U/L (5-31); Bilirubin Direct 0.3 mg/dL (0.0-0.5); Bilirubin Total 0.6 mg/dL (0.0-1.0); Blood Urea Nitrogen 9 mg/dL (9-16); Calcium 9.4 mg/dL (8.4-10.2); Carbon Dioxide 24 mmol/L (22-29); Chloride 102 mmol/L (96-108); Creatinine Clr Calc Pharmacy 94.8; Estimated Glomerular Filt Rate > 60; Glucose Random 110 mg/dL (60-115); Lipase 62 U/L (8-78); Magnesium 1.9 mg/dL (1.6-2.6); Potassium 3.3 mmol/L (3.3-5.1); Sodium 138 mmol/L (135-145); Total Protein 8.2 g/dL (6.5-8.0)
[2021-03-24 14:43] LABS: Hematocrit 34.1 % (37-47); Hemoglobin 10.6 g/dl (12.0-16.0); Mean Corpuscular HGB Conc 31.1 g/dl (31.0-35.0); Mean Corpuscular Hemoglobin 24.6 pg (27.0-33.0); Mean Corpuscular Volume 79.1 fL (80-98); Mean Platelet Volume 12.7 fL (9.4-12.3); Platelet Count 195 X10*3/uL (160-400); Red Blood Count 4.31 X10*6/uL (4.20-5.50)
[2021-03-24 14:45] LABS: PLT ABN DIST 1; WBC ABN SCTR FOR CBC 1
[2021-03-24 14:48] LABS: White Blood Count 8.8 X10*3/uL (4.8-10.8)
[2021-03-24 14:58] LABS: Lymphocytes Percent Manual 11 % (20-40); Microcytosis 1+ (5-14) /OIF; Monocytes Absolute Manual 0.4 X10*3/uL (0.0-1.2); Monocytes Percent Manual 5 % (2-11); Neutrophils Percent Manual 84 % (45-73); Ovalocytes 1+ (5-14) /OIF; RBC Morphology NOTED
[2021-03-24 14:59] LABS: Band Neutrophils Percent 0 % (3-5); Hypochromasia 1+ (5-14) /OIF; Neutrophils Absolute Manual 7.4 X10*3/uL (2.2-7.9); Platelet Estimate NORMAL (NORMAL); Platelet Morphology Comment NORMAL; Tear Drop Cells 1+ (0-2) /OIF
[2021-03-24 18:00] VITALS: BP 138/84; PULSE 90; RESP 18; TEMP 36.9; O2SAT 100
--- NOTE | 2021-03-24 18:25 | PC.NURSE ---
Urine sample provided and sent to lab. Pt feels cold and is c/o lower abd pain at this time. VSS. Pt reassured. PA notified.
[2021-03-24 18:35] LABS: Glucose Urine UA NEG (NEG); Leukocyte Esterase Urine 2+ (NEG); Nitrite Urine NEG (NEG); PH 8.5 (5.0-8.0); UACC Culture Trigger YES; Urine Blood NEG (NEG); Urine Ketones 40 MG/DL (NEG); Urine Protein NEG (NEG-TRACE)
[2021-03-24 18:37] LABS: Appearance Urine CLOUDY; Color Urine YELLOW
[2021-03-24 18:46] LABS: Bacteria Urine 3+ /LPF; Mucus Urine 2+ /LPF; Squamous Epithelial Cell Urine 3+ /LPF; WBC Urine 30-49 /HPF (0-4)
[2021-03-24 18:47] LABS: Amorphous Sediment Urine 2+ /LPF
[2021-03-24 18:55] LABS: Amphetamine Screen Urine Not Detected (Not Detect); Barbiturates, Urine Not Detected (Not Detect); Benzodiazepines Screen Urine Not Detected (Not Detect); Cannabinoid Screen Urine POSITIVE (Not Detect); Cocaine Screen Urine Not Detected (Not Detect); Opiate Screen Urine Not Detected (Not Detect); Phencyclidine Screen Urine Not Detected (Not Detect)
[2021-03-24] MEDS: Metoclopramide HCl 10 MG/2 ML VIAL IVPUSH (19:30)
[2021-03-24] MEDS: Ketorolac Tromethamine 30 MG/ML VIAL IVPUSH (19:30)
--- NOTE | 2021-03-24 20:21 | P.HPHOSP_ITS ---
History of Present Illness Date of Service: 03/24/21 Chief Complaint: Nausea vomiting 41-year-old female with a past medical history of substance abuse, marijuana use, cyclic vomiting syndrome, history of UTI/PID; recently discharged from the hospital for recurrent pelvic inflammatory disease/cyclic vomiting syndrome; patient was discharged on oral antibiotics; presented back to the ER today with a chief complaint of worsening nausea and vomiting unable to keep anything down. Complains of abdominal discomfort secondary to vomiting. Denies any blood in the vomitus. Denies any fever chills cough. Review of all other systems is negative except mentioned above ER course: Per ER team patient stayed in the ER for about 8 hours with no significant symptomatic improvement even after multiple doses of anti nausea medications, also given Haldol and Ativan. Patient is still not able tolerate p.o. and failed oral challenge. Admitted for further management. [facility] Medical History Abscess Cyclical vomiting Hidradenitis suppurativa Hypothyroidism Family History Other Heart disease Surgical History Tubal ligation status Social History Household Members: Children Housing: House Do you presently have visiting nurse or other home services: No Alcohol intake: unknown Smoking Status: Current every day smoker Tobacco Type: Cigarette Cigarettes Per Day: 3 Years Smoked: 20 Smoked in Last 30 Days: Yes Patient Interested in Nicotine Replacement: Yes (patch) Patient Given Instructions on How to Stop Smoking: No Second Hand Smoke Exposure: Yes Use of substances other than those prescribed or required for medical reasons: Yes Substance Use Type: Marijuana Substance Use Frequency: Weekly Last Used Substance: Weeks (ago) Currently Displaying Signs/Symptoms of Drug Intoxication Withdrawal: No Any prior treatment program specific to substance use: No Have you been hit, kicked, punched, or otherwise hurt by someone within the past year? If so, by whom?: No Do you feel safe in your current relationship?: Yes Is there a partner from a previous relationship who is making you feel unsafe now?: No Are you made to feel afraid or neglected: No Advance Directives: Yes Advance Directives on File: Yes Advance Directives Date on File: 01/02/21 Do you have thoughts of harming others: None Do you have a plan to hurt others: No Plan Recently lost weight without trying: Yes How much weight loss: Unsure Eating poorly because of decreased appetite: Yes Nutrition screen score: 5 Nutrition Risks: No Nutritional Risk Patient : No : No Poor oral hygiene: No service: No Current occupational status: employed Meds Allergies Allergy/AdvReac Type Severity Reaction Status Date / Time amoxicillin [Amoxicillin] Allergy Intermediate HIVES Verified 03/21/21 23:46 tramadol AdvReac Intermediate SOB Verified 03/21/21 23:46 Active Medications: Current Medications Generic Name Dose Route Start Last Admin Trade Name Freq PRN Reason Stop Dose Admin Dextrose/Sodium Chloride 1,000 mls @ 100 mls/hr 03/24/21 20:30 D51/2ns IVCONT .Q10H [facility] Ketorolac Tromethamine 15 mg 03/24/21 20:18 Ketorolac Tromethamine 30 Mg/Ml Vial IVPUSH 03/29/21 20:17 Q6H PRN Pain, Severe (Pain Scale 7-10) Ondansetron HCl 4 mg 03/24/21 20:18 Ondansetron Hcl 4 Mg/2 Ml Vial IVPUSH Q8H PRN Nausea and Vomiting Sodium Chloride 3 ml 03/25/21 00:00 0.9 % Sodium Chloride Flush 3 Ml Syringe IVFLUSH QSHIFT [facility] Home Medications Medication Instructions Recorded Confirmed Last Taken Type acetaminophen 2 tab PO QID PRN 03/21/21 03/24/21 Unknown History Physical Exam Vital Signs and Narrative: Vital Signs: Last Vital Signs Temp 98.5 F 03/24/21 18:00 Pulse 90 03/24/21 18:00 Resp 18 03/24/21 18:00 BP 138/84 03/24/21 18:00 Pulse Ox 100 03/24/21 18:00 Body Mass Index 30.0 Gen: Appears be in no acute distress HEENT: NCAT, Moist mucosa. Pulmonary: Vesicular breath sounds, fair air entry CVS: Normal S1-S2 Abdomen: BS+, Soft, Nontender Extremities: Warm well perfused Neuro: Alert and awake. Results Labs CBC and Chem 7: 03/25/21 06:57 05/15/21 06:57 Labs: Laboratory Results - last 24 hr 03/24/21 03/24/21 03/24/21 14:07 14:07 14:08 MCV 79.1 L MCH 24.6 L MCHC 31.1 RDW 17.0 H Plt Count 195 MPV 12.7 H Immature Gran % (Auto) Cancelled Neut % (Auto) Cancelled Lymph % (Auto) Cancelled [place] % (Auto) Cancelled Eos % (Auto) Cancelled Baso % (Auto) Cancelled Lymph # (Auto) Cancelled [place] # (Auto) Cancelled Eos # (Auto) Cancelled Baso # (Auto) Cancelled Abs Immat Gran (auto) Cancelled Absolute Neuts (auto) Cancelled Absolute Nucleated RBC 0.000 Nucleated RBC % (auto) 0.0 Neutrophils % (Manual) 84 H Band Neutrophils % 0 L Lymphocytes % (Manual) 11 L Monocytes % (Manual) 5 Abs Neuts (Manual) 7.4 Lymphocytes # (Manual) 1.0 Monocytes # (Manual) 0.4 Platelet Estimate NORMAL Plt Morphology Comment NORMAL RBC Morphology NOTED Hypochromasia 1+ (5-14) Microcytosis 1+ (5-14) Tear Drop Cells 1+ (0-2) Ovalocytes 1+ (5-14) Hold Blue Top SEE NOTE Anion Gap 15 Estim Creat Clear Calc 94.8 Estimated GFR > 60 Random Glucose 110 Calcium 9.4 D Magnesium 1.9 Total Bilirubin 0.6 Direct Bilirubin 0.3 AST 18 ALT 17 Alkaline Phosphatase 66 Total Protein 8.2 H Albumin 4.5 Lipase 62 Urine Color Urine Appearance Urine pH Ur Specific Distant Urine Protein Urine Glucose (UA) Urine Ketones Urine Blood Urine Nitrite Ur Leukocyte Esterase Urine RBC Urine WBC Ur Squamous Epith Cells Amorphous Sediment Urine Bacteria RBC Casts Urine Mucus Urine Yeast Urine Opiates Screen Ur Barbiturates Screen Ur Phencyclidine Scrn Ur Amphetamines Screen U Benzodiazepines Scrn Urine Cocaine Screen U Marijuana (THC) Screen 03/24/21 03/24/21 18:23 18:23 MCV MCH MCHC RDW Plt Count MPV Immature Gran % (Auto) Neut % (Auto) Lymph % (Auto) [place] % (Auto) Eos % (Auto) Baso % (Auto) Lymph # (Auto) [place] # (Auto) Eos # (Auto) Baso # (Auto) Abs Immat Gran (auto) Absolute Neuts (auto) Absolute Nucleated RBC Nucleated RBC % (auto) Neutrophils % (Manual) Band Neutrophils % Lymphocytes % (Manual) Monocytes % (Manual) Abs Neuts (Manual) Lymphocytes # (Manual) Monocytes # (Manual) Platelet Estimate Plt Morphology Comment RBC Morphology Hypochromasia Microcytosis Tear Drop Cells Ovalocytes Hold Blue Top Anion Gap Estim Creat Clear Calc Estimated GFR Random Glucose Calcium Magnesium Total Bilirubin Direct Bilirubin AST ALT Alkaline Phosphatase Total Protein Albumin Lipase Urine Color YELLOW Urine Appearance CLOUDY Urine pH 8.5 H Ur Specific Distant 1.020 Urine Protein NEG Urine Glucose (UA) NEG Urine Ketones 40 Urine Blood NEG Urine Nitrite NEG Ur Leukocyte Esterase 2+ H Urine RBC 76-150 H Urine WBC 30-49 H Ur Squamous Epith Cells 3+ Amorphous Sediment 2+ Urine Bacteria 3+ RBC Casts 1-4 Urine Mucus 2+ Urine Yeast 1+ Urine Opiates Screen Not Detected Ur Barbiturates Screen Not Detected Ur Phencyclidine Scrn Not Detected Ur Amphetamines Screen Not Detected U Benzodiazepines Scrn Not Detected Urine Cocaine Screen Not Detected U Marijuana (THC) Screen POSITIVE H Assessment and Plan (1) Vomiting: Qualifiers: Nausea presence: unspecified Vomiting Intractability: unspecified Vomiting type: unspecified Qualified Code(s): R11.10 - Vomiting, unspecified Status: Acute 38-year-old female with a past medical history of substance abuse, cyclic vomiting syndrome, history of UTI, history of pelvic inflammatory disease presented to the hospital with a chief complaint of nausea vomiting and poor oral intake. Cyclic vomiting syndrome: Supportive care. Zofran p.r.n.. IV fluids. Clear liquid diet. Advance diet as tolerated. Recurrent pelvic inflammatory disease: Patient was recently discharged on doxycycline and Flagyl. Will continue for now. Substance abuse: Patient counseled to avoid cannabis use. DVT prophylaxis: SCD boots Code status: Full code
[2021-03-24 20:36] VITALS: PULSE 108; RESP 16
[2021-03-24 20:38] VITALS: BP 148/97; PULSE 101; RESP 18; TEMP 36.6; O2SAT 99
--- NOTE | 2021-03-24 20:44 | PC.NURSE ---
continues to c/o lower abd pain and states that she needs pain meds stronger than torodol. this rn to approach hospitalists for order. pt requesting knock me out again .
[2021-03-24] MEDS: ondansetron HCL 4 MG/2 ML VIAL IVPUSH (20:45)
[2021-03-24] MEDS: Famotidine/PF 20 MG/2 ML VIAL IVPUSH (20:45)
[2021-03-24] MEDS: Dextrose 5 % and 0.45 % NaCl 1,000 ML 100 ML IVCONT (20:47)
--- NOTE | 2021-03-24 20:56 | PC.NURSE ---
PT CONTINUES TO COMPLAIN OF ABD PAIN. NAUSEA REMAINS BUT HAS IMPROVED AND SHE IS NOT DRYHEAVING. SKIN PWD. AWAITS ROOM ON FLOOR.
[2021-03-25] VITALS: PULSE 84; RESP 15
[2021-03-25] MEDS: Ketorolac Tromethamine 30 MG/ML VIAL 15 MG IVPUSH (02:53)
[2021-03-25] MEDS: Melatonin 3 MG TABLET 6 MG PO ×2 (03:05→22:06)
--- NOTE | 2021-03-25 03:06 | PC.NURSE ---
Patient unable to sleep and hospitalist notified. Patient prescribed melatonin 6 mg. Patient medicated
[2021-03-25 04:00] VITALS: RESP 16
[2021-03-25 06:52] VITALS: BP 142/103; PULSE 80; RESP 18; TEMP 36.2; O2SAT 99
[2021-03-25 07:19] LABS: Hemoglobin 9.1 g/dl (12.0-16.0); Imm Gran Abs Auto 0.02 X10*3/uL (0.00-0.03); Imm Gran Pct Auto 0.3 % (0.0-0.4); Lymphocytes Percent Auto 30.7 % (20-40); MANUAL DIFF FLAG SCAN; Red Cell Distribution Width 17.3 % (11.0-16.0); SCAN SMEAR FLAG 1
[2021-03-25 07:21] LABS: Basophils Percent Auto 0.3 % (0-2); Eosinophils Absolute Auto 0.1 X10*3/uL (0.0-0.4); Eosinophils Percent Auto 0.8 % (0-4); Hematocrit 29.8 % (37-47); Lymphocytes Absolute Auto 1.8 X10*3/uL (1.2-4.9); Mean Corpuscular HGB Conc 30.5 g/dl (31.0-35.0); Mean Corpuscular Hemoglobin 24.6 pg (27.0-33.0); Mean Corpuscular Volume 80.5 fL (80-98); Mean Platelet Volume 12.5 fL (9.4-12.3); Monocytes Absolute Auto 0.6 X10*3/uL (0.1-1.2); Monocytes Percent Auto 10.2 % (2-11); Neutrophils Absolute Auto 3.4 X10*3/uL (2.0-8.3); Neutrophils Percent Auto 57.7 % (45-73); Platelet Count 169 X10*3/uL (160-400); White Blood Count 5.9 X10*3/uL (4.8-10.8)
[2021-03-25 07:24] LABS: PLT ABN DIST 1
[2021-03-25 07:35] LABS: Anion Gap 10 (12-20); Blood Urea Nitrogen 7 mg/dL (9-16); Calcium 8.6 mg/dL (8.4-10.2); Carbon Dioxide 25 mmol/L (22-29); Chloride 103 mmol/L (96-108); Creatinine Clr Calc Pharmacy 113.7; Estimated Glomerular Filt Rate > 60; Glucose Random 87 mg/dL (60-115); Potassium 3.2 mmol/L (3.3-5.1); Sodium 135 mmol/L (135-145)
[2021-03-25] MEDS: Dextrose 5 % and 0.45 % NaCl 1,000 ML 100 ML IVCONT ×2 (07:37→18:07)
[2021-03-25] MEDS: 0.9 % Sodium Chloride Flush 3 ML SYRINGE IVFLUSH (07:38)
[2021-03-25] MEDS: metroNIDAZOLE 500 MG TABLET PO (09:26)
[2021-03-25] MEDS: Omeprazole 40 MG CAPSULE.DR PO (09:27)
[2021-03-25] MEDS: oxyCODONE HCl Immed Release 5 MG TABLET PO ×4 (09:30→22:06)
--- NOTE | 2021-03-25 11:38 | HO.PM.IMPN ---
Subjective Subjective Date of Service: 03/25/21 Interval History: nausea Cardiovascular Cardiovascular: Reports no additional cardiovascular complaints Gastrointestinal Gastrointestinal: Reports no additional gastrointestinal complaints Physical Exam Vital Signs: Vital Signs: Last Vital Signs Temp 97.2 F 03/25/21 06:52 Pulse 80 03/25/21 06:52 Resp 18 03/25/21 06:52 BP 142/103 H 03/25/21 06:52 Pulse Ox 99 03/25/21 06:52 Body Mass Index 30.0 General: AO X 3, no acute distress Resp: CTA bilateral CVS: S1,S2,RRR GI: soft, non tender, non distended Neuro: motor grossly intact Psych: appropriate affect Objective Data Current Medications Generic Name Dose Route Start Last Admin Trade Name Freq PRN Reason Stop Dose Admin Doxycycline Hyclate 100 mg 03/25/21 09:00 03/25/21 09:26 Doxycycline Hyclate 100 Mg Tablet PO 100 mg BID VICTOR M Administration Dextrose/Sodium Chloride 1,000 mls @ 100 mls/hr 03/24/21 20:30 03/25/21 07:37 D51/2ns IVCONT 100 mls/hr .Q10H VICTOR M Administration Ketorolac Tromethamine 15 mg 03/24/21 20:18 03/25/21 02:53 Ketorolac Tromethamine 30 Mg/Ml Vial IVPUSH 03/29/21 20:17 15 mg Q6H PRN Administration Pain, Severe (Pain Scale 7-10) Melatonin 6 mg 03/25/21 02:55 03/25/21 03:05 Melatonin 3 Mg Tablet PO 6 mg BEDTIME PRN Administration Insomnia Metronidazole 500 mg 03/25/21 09:00 03/25/21 09:26 Metronidazole 500 Mg Tablet PO 500 mg BID VICTOR M Administration Non-Formulary Medication 0.35 mg 03/25/21 09:00 Norethindrone (Contraceptive) PO DAILY VICTOR M Omeprazole 40 mg 03/25/21 09:00 03/25/21 09:27 Omeprazole 40 Mg Capsule.Dr PO 40 mg DAILY VICTOR M Administration Ondansetron HCl 4 mg 03/24/21 20:18 03/24/21 20:45 Ondansetron Hcl 4 Mg/2 Ml Vial IVPUSH 4 mg Q8H PRN Administration Nausea and Vomiting Oxycodone HCl 5 mg 03/25/21 09:07 03/25/21 09:30 Oxycodone Hcl Immed Release 5 Mg Tablet PO 5 mg Q4H PRN Administration pain Pharmacy Consult 1 each 03/24/21 20:24 Consult Rx Perform Med Rec MISCELLANE ONCE PRN Consult order Sodium Chloride 3 ml 03/25/21 00:00 03/25/21 07:38 0.9 % Sodium Chloride Flush 3 Ml Syringe IVFLUSH 3 ml QSHIFT VICTOR M Administration Labs CBC & Chem 7: 03/25/21 06:57 03/25/21 06:57 Microbiology Microbiology Results: Microbiology 03/24/21 Unknown Urine clean catch - Clean Catch Midstream Urine Culture - Preliminary Culture in progress. Assessment and Plan (1) Vomiting: Status: Acute (2) Intractable nausea and vomiting: Status: Acute Assessment and Plan: 41F presented with abdominal pain, nasuea and vomitting cyclic vomiting still some nausea but hungry, will advance diet pelvic pain and discharge recurrent PID, US negative, gardenella, trichomonas positive continue doxy augmentin bacturia vre and pseudomonas unclear significance, will hold of on treatment for now, ID to see
[2021-03-25 12:00] VITALS: BP 128/83; PULSE 89; RESP 19; TEMP 36.5; O2SAT 100
--- NOTE | 2021-03-25 13:45 | MHC.CM.PN ---
PATIENT IS FULLY INDEPENDENT NO DME OR VNA SERVICES. SHE IS ABLE TO TRANSPORT SELF WHERE NEEDED. PLAN WILL BE HOME WITH NO SERVICES AT DISCHARGE. GRACIA 03/25 IN CHART
[2021-03-25] MEDS: Nicotine 7 MG PATCH.TD24 TRANSDERMA (13:48)
[2021-03-25 15:47] VITALS: BP 131/79; PULSE 80; RESP 16; TEMP 36.3; O2SAT 100
[2021-03-25 19:38] VITALS: BP 131/81; PULSE 75; RESP 18; TEMP 36.4; O2SAT 99
--- NOTE | 2021-03-25 22:31 | W.PM.IDCN ---
History of Present Illness Data of Consult Service Date: 03/25/21 Requesting physician: Matt Fermin Primary Care Provider: Navi Real MD HPI Reason for consult: nausea and vomiting She presents to hospital with nausea and vomiting She has had this over last week She has had 5-6/10 right lower quadrant discomfort She has no fever or chills or leukocytosis She was treated for PID in hospital ,yesterday gone. She has had Keflex 750 mg po qid for a week She was seen by Manager [employer] as well and recieved Levaquin 250 mg daily for 5 days on 03/24 (written 03/21) as well as Doxycycline 100 mg po bid as well as Flagyl 500 bid ,both for two weeks as well as Norethinfrone,iron tabletes and Omeprazole After these medications she felt nausea and vomiting. Review of Systems Review of Systems: Yes all other systems are reviewed and are negative [facility] Past Medical History Medical History Abscess Cyclical vomiting Hidradenitis suppurativa Hypothyroidism Family History Family History Other Heart disease Family history: reviewed and not pertinent Surgical History Surgical History Tubal ligation status Social History Social History Household Members: Children Housing: House Do you presently have visiting nurse or other home services: No Alcohol intake: unknown Cigarettes Per Day: 3 Years Smoked: 20 Second Hand Smoke Exposure: Yes Substance Use Type: Marijuana Advance Directives Date on File: 01/02/21 service: No Current occupational status: employed Meds Allergies Allergy/AdvReac Type Severity Reaction Status Date / Time amoxicillin [Amoxicillin] Allergy Intermediate HIVES Verified 04/04/21 11:11 tramadol AdvReac Intermediate SOB Verified 04/04/21 11:11 Active Medications: Current Medications Generic Name Dose Route Start Last Admin Trade Name Freq PRN Reason Stop Dose Admin Dextrose/Sodium Chloride 1,000 mls @ 100 mls/hr 03/24/21 20:30 03/25/21 18:07 D51/2ns IVCONT 100 mls/hr .Q10H VICTOR M Administration Ketorolac Tromethamine 15 mg 03/24/21 20:18 03/25/21 02:53 Ketorolac Tromethamine 30 Mg/Ml Vial IVPUSH 03/29/21 20:17 15 mg Q6H PRN Administration Pain, Severe (Pain Scale 7-10) Melatonin 6 mg 03/25/21 02:55 03/25/21 22:06 Melatonin 3 Mg Tablet PO 6 mg BEDTIME PRN Administration Insomnia Nicotine 7 mg 03/25/21 13:00 03/25/21 13:48 Nicotine 7 Mg Patch.Td24 TRANSDERMA 7 mg DAILY [facility] Administration Non-Formulary Medication 0.35 mg 03/25/21 09:00 Norethindrone (Contraceptive) PO DAILY [facility] Omeprazole 40 mg 03/25/21 09:00 03/25/21 09:27 Omeprazole 40 Mg Capsule.Dr PO 40 mg DAILY [facility] Administration Ondansetron HCl 4 mg 03/24/21 20:18 03/24/21 20:45 Ondansetron Hcl 4 Mg/2 Ml Vial IVPUSH 4 mg Q8H PRN Administration Nausea and Vomiting Oxycodone HCl 5 mg 03/25/21 09:07 03/25/21 22:06 Oxycodone Hcl Immed Release 5 Mg Tablet PO 5 mg Q4H PRN Administration pain Pharmacy Consult 1 each 03/24/21 20:24 Consult Rx Perform Med Rec MISCELLANE ONCE PRN Consult order Sodium Chloride 3 ml 03/25/21 00:00 03/25/21 14:49 0.9 % Sodium Chloride Flush 3 Ml Syringe IVFLUSH Not Given QSHIFT [facility] Home Medications Medication Instructions Recorded Confirmed Last Taken Type acetaminophen 2 tab PO QID PRN 03/21/21 03/24/21 Unknown History doxycycline hyclate 100 mg tablet 100 mg PO BID 04/04/21 Unknown History ferrous sulfate 324 mg (65 mg 324 mg PO BID 04/04/21 Unknown History iron) tablet,delayed release metronidazole 500 mg tablet 500 mg PO BID 04/04/21 Unknown History prochlorperazine 25 mg rectal 0 mg MI 04/04/21 Unknown History suppository Physical Exam Vital Signs: Vital Signs: Last Vital Signs Temp 97.5 F 03/25/21 19:38 Pulse 75 03/25/21 19:38 Resp 18 03/25/21 19:38 BP 131/81 03/25/21 19:38 Pulse Ox 99 03/25/21 19:38 Body Mass Index 30.0 Const: General: cooperative HENMT: Head: Yes normal to inspection Resp: Effort & Inspection: normal respiratory effort Cardio: Rate: regular rate Rhythm: regular rhythm GI: Palpation (GI): Soft to palpation and nontender Results Labs CBC & Chem 7: 03/25/21 06:57 03/25/21 06:57 Labs: Short CBC 03/25/21 Range/Units 06:57 WBC 5.9 (4.8-10.8) X10*3/uL Hgb 9.1 L (12.0-16.0) g/dl Hct 29.8 L (37-47) % Plt Count 169 (160-400) X10*3/uL BMP 03/25/21 06:57 Sodium 135 Potassium 3.2 L Chloride 103 Carbon Dioxide 25 BUN 7 L Creatinine 0.65 Calcium 8.6 D Microbiology Microbiology Results: Microbiology 03/24/21 Unknown Urine clean catch - Clean Catch Midstream Urine Culture - Preliminary Culture in progress. Assessment and Plan (1) Pelvic inflammatory disease: Problem details: She reports gonorrhea and had IM Ceftriaxone 500 mg within last week She has had Metronidazole and vomited as well as Doxycycline and vomited The 500 mg Ceftriaxone treated GC and probably did have enough Metronidazole to rx trichomonas I think nausea and vomiting more related to polypharmacy than PID at this point especially since there is no fever or chills or leukocytosis and she had iron and omeprazole which may cause GI symptoms Status: Acute Would hold antibiotics at this time Would reevaluate symptoms and treat if needed Check HIV and RPR if not done (2) Vomiting: Qualifiers: Nausea presence: unspecified Vomiting Intractability: unspecified Vomiting type: unspecified Qualified Code(s): R11.10 - Vomiting, unspecified Status: Acute (3) Intractable nausea and vomiting: Status: Acute
[2021-03-26 00:30] VITALS: BP 147/105; PULSE 78; RESP 18; TEMP 36.6; O2SAT 100
[2021-03-26] MEDS: oxyCODONE HCl Immed Release 5 MG TABLET PO ×3 (02:56→12:42)
[2021-03-26] MEDS: Dextrose 5 % and 0.45 % NaCl 1,000 ML 100 ML IVCONT (02:57)
[2021-03-26 04:00] VITALS: BP 142/91; PULSE 75; RESP 16; TEMP 37.1; O2SAT 94
[2021-03-26] MEDS: Omeprazole 40 MG CAPSULE.DR PO (07:52)
[2021-03-26] MEDS: Nicotine 7 MG PATCH.TD24 TRANSDERMA (07:52)
[2021-03-26 07:58] VITALS: BP 135/99; PULSE 81; RESP 17; TEMP 36.2; O2SAT 100
[2021-03-26 11:47] VITALS: BP 161/93; PULSE 84; RESP 18; TEMP 36.7; O2SAT 98
--- NOTE | 2021-03-26 12:50 | PM.DS ---
DS: Providers Provider Date of Service: 03/26/21 Date of admission: 03/24/21 20:18 Primary care physician: Navi Real MD Consults: 03/25/21 08:12 Consult to Infectious Diseases Routine Consulting Provider: Gina Martinez Reason for consultation: vre and pseudomonas in urine DS: Diagnosis Discharge Diagnosis (1) Vomiting: Status: Acute DS: Medications Discharge Medications Home Medications: Home Medications Medication Instructions Recorded Confirmed acetaminophen 2 tab PO QID PRN 03/21/21 03/24/21 Previous Rx's Medication Instructions Recorded ondansetron HCl [Zofran] 4 mg PO Q8H PRN #14 tab 01/04/21 ibuprofen 1 tab PO Q8H PRN #60 tab 03/23/21 norethindrone (contraceptive) 0.35 mg PO DAILY #84 tab 03/23/21 omeprazole 40 mg PO DAILY 30 Days #30 cap 03/23/21 DS: Summary Hospital Course Hospital Course: Patient was admitted for intractable nausea vomiting and abdominal pain. She initially was continued on her medication for PID. Urine culture grew VRE and Pseudomonas. Therefore, consultation was having Infectious Disease. Recommendations by Infectious Disease with that patient's symptoms were likely side effects of antibiotics, unlikely that patient has active PID or UTI, plan was to discontinue antibiotics. After discontinuing antibiotics patient's abdominal pain improved and she was able to tolerate solid diet. She will be discharged home off of antibiotics but should monitor her symptoms closely. She did have a syphilis, HCV, HIV blood test drawn in the hospital that is still pending and should follow up outpatient. Time Spent with Patient Time attestation: Total time spent providing and/or coordinating discharge services: Discharge coordination time: Greater than 30 minutes Quality: Stroke Does the patient have a stroke diagnosis?: No Physical Exam Vital Signs: Vital Signs: Last Vital Signs Temp 98.0 F 03/26/21 11:47 Pulse 84 03/26/21 11:47 Resp 18 03/26/21 11:47 BP 161/93 H 03/26/21 11:47 Pulse Ox 98 03/26/21 11:47 Body Mass Index 30.0 General: AO X 3, no acute distress Resp: CTA bilateral CVS: S1,S2,RRR GI: soft, non tender, non distended Neuro: motor grossly intact Psych: appropriate affect Discharge Plan Discharge Patient Disposition: Home, Self-Care Discharge Diagnosis: nasuea Referrals: Navi Real MD [Primary Care Provider] - 1 Week Discharge Medications: Continued ondansetron HCl [Zofran] 4 mg tablet 4 mg PO Q8H PRN (Reason: nausea and vomiting) Qty: 14 RF: 0 acetaminophen 500 mg tablet 2 tab PO QID PRN (Reason: fever) RF: 0 norethindrone (contraceptive) 0.35 mg tablet 0.35 mg PO DAILY Qty: 84 RF: 3 ibuprofen 800 mg tablet 1 tab PO Q8H PRN (Reason: pain) Qty: 60 RF: 1 omeprazole 40 mg capsule,delayed release(DR/EC) 40 mg PO DAILY 30 Days Qty: 30 RF: 1 Discontinued doxycycline hyclate 100 mg tablet 100 mg PO BID 14 Days Qty: 28 RF: 0 metronidazole 500 mg tablet 500 mg PO BID 14 Days Qty: 28 RF: 0 Discharge Orders: Discharge Order (Routine); Ordered 03/26/21 Ordered By: Matt Fermin Diet: advance to usual diet Activity on Discharge: As tolerated Stand Alone Forms: Patient Portal Discharge page Care Plan Goals: recovery Health Concerns: nausea Plan of Treatment: monitor off antibiotics Assessment: see above
--- NOTE | 2021-03-26 12:55 | MHC.CM.PN ---
pt dcd home no skilled servcies ordered by
[2021-03-27 03:39] LABS: Syphilis Screen Nonreactive (Nonreactive)
[2021-03-27 04:11] LABS: ~HepC Num1 0.06 S/CO (0.00-0.79); ~Hepatitis C Antibody Nonreactive (Nonreactive)
[2021-03-27 04:30] LABS: HIV AB/AG Nonreactive (Nonreactive); HIV Num 1 0.06 S/CO (0.00-0.99)
== END 2021-03-26 13:56 | disposition home or self-care (01) ==
LOC: HO.ED 13:46 → HO.EDOVER 21:03 → HO.S3 03-25 05:27
PROVIDERS: Internal Medicine; Admitting Provider Hospitalist; Emergency Provider Emergency Medicine; PCP Family Medicine; Visit Provider Internal Medicine
DX: R11.2 Nausea with vomiting, unspecified (principal); R10.31 Right lower quadrant pain; L73.2 Hidradenitis suppurativa; E03.9 Hypothyroidism, unspecified; N73.9 Female pelvic inflammatory disease, unspecified; B96.5 Pseudomonas (aeruginosa) (mallei) (pseudomallei) as the cause of diseases classified elsewhere; F17.210 Nicotine dependence, cigarettes, uncomplicated; F12.10 Cannabis abuse, uncomplicated; R11.15 Cyclical vomiting syndrome unrelated to migraine; Z87.440 Personal history of urinary (tract) infections; Z98.51 Tubal ligation status; Z82.49 Family history of ischemic heart disease and other diseases of the circulatory system; Z88.1 Allergy status to other antibiotic agents; Z88.8 Allergy status to other drugs, medicaments and biological substances; Z16.21 Resistance to vancomycin; Z79.899 Other long term (current) drug therapy
CPT/HCPCS: 36415; 80048; 80076; 80307; 81001; 81003; 83690; 83735; 85007; 85025; 85027; 86780; 86803; 87086; 87389; 96361; 96365; 96366; 96372; 96375; 96376; 99218; 99285; J1200; J1885; J2060; J2405; J2765

== ENCOUNTER → 2021-04-04 10:50 | Outpatient (BNVA) | payer OTHER, SELFPAY | PROVIDERS: PCP Family Medicine | DX: N73.9 Female pelvic inflammatory disease, unspecified (principal); N39.0 Urinary tract infection, site not specified; N12 Tubulo-interstitial nephritis, not specified as acute or chronic; L73.2 Hidradenitis suppurativa | CPT/HCPCS: 99202 ==

== ENCOUNTER → 2021-05-03 09:07 | Outpatient (BNVA) | payer OTHER, SELFPAY | PROVIDERS: PCP Family Medicine | DX: N39.0 Urinary tract infection, site not specified (principal) | CPT/HCPCS: 99212 ==

== ENCOUNTER 2021-05-05 14:52 | Emergency (ER) | payer OTHER, SELFPAY ==
--- NOTE | ~2021-05-05 | US_ITS ---
EXAMINATION: US PELVIS CLINICAL INFORMATION: Suprapubic pain COMPARISON: Pelvic ultrasound 03/23/2021 TECHNIQUE: Ultrasound of the pelvis is performed using both transabdominal and transvaginal transducers along with Doppler. Transvaginal imaging is performed due to inadequate visualization transabdominally. FINDINGS: Uterus: The uterus is anteverted and measures 9.5 x 5.0 x 5.0 cm. The double wall endometrial thickness is 12 mm. The uterus is smooth in contour and has normal myometrial echogenicity. No visible fibroid. A nabothian cyst versus Papi's duct cyst is present. A right adnexal cyst is again seen separate from the ovary measuring 1.7 x 2.1 x 1.0 cm. Adnexa: Both ovaries are visualized. There is normal color flow to the adnexa. There is no ovarian torsion. There is no pelvic ascites or fluid collection. Right ovary measures 5.0 x 3.2 x 4.0 cm for a volume of 33.5 mL and includes a ovarian cyst measuring 2.6 x 3.4 x 2.8 cm (previously 1.3 x 0.9 x 1.6 cm). Left ovary measures 3.5 x 2.1 x 1.9 cm for a volume of 7.3 mL which includes a 1.4 x 1.4 x 1.2 cm cyst. US/US pelvic complete IMPRESSION: 1. Normal-appearing uterus 2. Benign-appearing right ovarian cyst slightly increased in size 3. Again noted is an unchanged benign left ovarian cyst paraovarian cyst.
[2021-05-05 14:56] VITALS: BP 185/102; PULSE 93; RESP 18; TEMP 36.4; O2SAT 100; BMI 25.7
[2021-05-05 17:09] VITALS: PULSE 77; TEMP 36.6; O2SAT 98
[2021-05-05 17:15] VITALS: BP 154/83
--- NOTE | 2021-05-05 17:15 | ED_ITS ---
HPI - Abdominal Pain General Chief Complaint: Abdominal Pain Stated Complaint: abd pain and back pain Time Seen by Provider: 05/05/21 17:15 Source: patient Mode of arrival: ambulatory Limitations: no limitations History of Present Illness HPI narrative: This is a 41-year-old female with past medical history that is significant for substance abuse, marijuana use, cyclic vomiting syndrome, history of UTI/PID; discharged from the hospital for recurrent pelvic inflammatory disease/cyclic vomiting syndrome with multiple admissions in the past most recently on March 24 through March 26 ( 6 weeks ago) today she presents with complaint of 2 days of gradually worsening nausea and vomiting for with now having lower abdomen pain as well. States she has had similar episodes in the past and has been admitted here for this. Also reports mild vaginal discharge that is ?whitish? states this is normal for her and has noted some mild discomfort with urination. She otherwise denies any fever or chills to me. She does report she smokes marijuana heavily but has not done so in 2 weeks. MD elicited complaint: abdominal pain Pertinent past history: past UTI Onset (ago): day(s) Pain Consistency: constant Location: suprapubic Severity: moderate Quality: aching Radiation: none Migration to: no migration Exacerbating factors: eating Relieving factors: nothing Associated symptoms: nausea and vomiting Related Data Home Medications Medication Instructions Recorded Confirmed acetaminophen 2 tab PO QID PRN 03/21/21 03/24/21 doxycycline hyclate 100 mg tablet 100 mg PO BID 04/04/21 ferrous sulfate 324 mg (65 mg 324 mg PO BID 04/04/21 iron) tablet,delayed release metronidazole 500 mg tablet 500 mg PO BID 04/04/21 prochlorperazine 25 mg rectal 0 mg MO 04/04/21 suppository Previous Rx's Medication Instructions Recorded ondansetron HCl [Zofran] 4 mg PO Q8H PRN #14 tab 01/04/21 ibuprofen 1 tab PO Q8H PRN #60 tab 03/23/21 norethindrone (contraceptive) 0.35 mg PO DAILY #84 tab 03/23/21 omeprazole 40 mg PO DAILY 30 Days #30 cap 03/23/21 ascorbic acid (vitamin C) 1,000 mg 1 g PO DAILY 14 Days #14 tab NS 04/04/21 tablet methenamine hippurate 1 gram tablet 1 g PO DAILY 14 Days #14 tab 04/04/21 doxycycline hyclate 100 mg capsule 100 mg PO BID 5 Days #10 cap 05/03/21 fluconazole 150 mg tablet 150 mg PO DAILY 1 Days #1 tab 05/03/21 fosfomycin tromethamine 3 gram 1 packet PO Q OTHER DAY #3 ea 05/03/21 oral packet ondansetron HCl [Zofran] 4 mg PO Q8H PRN #10 tab 05/05/21 Allergies Allergy/AdvReac Type Severity Reaction Status Date / Time amoxicillin [Amoxicillin] Allergy Intermediate HIVES Verified 05/05/21 14:56 tramadol AdvReac Intermediate SOB Verified 05/05/21 14:56 Review of Systems Review of Systems Constitutional: No Weight loss, No Fever, No Chills, No Night Sweats, No Fatigue, No Malaise ENT/Mouth: No Hearing loss, No Ear Pain, No Nasal Congestion, No Sinus Pain, No Hoarseness, No sore throat, No Rhinorrhea, No Swallowing Difficulty Eyes: No Eye Pain, No Swelling, No Redness, No Foreign Body, No Discharge, No Vision Changes Cardiovascular: No Chest Pain, No SOB, No Dyspnea on Exertion, No Orthopnea, No Edema, No Palpitations Respiratory: No Cough, No Sputum, No Wheezing, No Smoke Exposure, No Dyspnea Gastrointestinal: As noted per HPI, No Hematochezia, No Melena Genitourinary: no irregular bleeding, No Dysuria, No Urinary Frequency, No Hemat uria, No Urinary Incontinence, No Urgency, No Flank Pain, No Urinary Flow Changes, No Hesitancy Musculoskeletal: No joint pain, No Myalgias, No Joint Swelling Skin: No Skin Lesions, No rash Neuro: No Weakness, No Numbness, No Paresthesias, No Loss of Consciousness, No Dizziness, No Headache Psych: No Anxiety/Panic, No Depression, No SI/HI/AH/VH, No Social Issues Heme/Lymph: No Bruising, No Bleeding,No Lymphadenopathy Endocrine: No Polyuria, No Polydipsia, No Temperature Intolerance Yes all other systems are reviewed and are negative Physical Exam Vital Signs: Vital Signs: Last Vital Signs Temp 98.4 F 05/05/21 18:50 Pulse 88 05/05/21 21:22 Resp 18 05/05/21 21:22 BP 158/95 H 05/05/21 21:22 Pulse Ox 100 05/05/21 21:22 Body Mass Index 25.7 Reviewed Const: General: anxious and diaphoretic (Slightly); No intoxicated appearing Nutritional Appearance: average body habitus Orientation/consciousness: patient oriented x3 HENMT: Head: Yes normal to inspection Ears: hearing grossly normal bilaterally Eyes: General: appearance normal, both eyes and all related structures Visual Zheng: normal visual zhegn by confrontation Neck: Neck: Yes normal visual inspection, No positive Brudzinski's sign, No positive Kernig's sign and No tender Thyroid: Thyroid normal Chest: Chest palpation & inspection: normal inspection of the chest Resp: Effort & Inspection: normal respiratory effort Auscultation: clear to auscultation bilaterally Cardio: Jugular venous distension: no JVD Rhythm: regular rhythm Heart sounds: S1 normal heart sound present and S2 normal heart sound present GI: Inspection: Yes normal to inspection Palpation (GI): Soft to palpation Percussion: Yes normal to percussion Auscultation: normal bowel sounds : General: Yes no CVA tenderness Back/Spine/Pelvis: Back: no CVA tenderness Skin: General skin exam: no rashes or lesions noted Neuro: General: patient oriented x3 Extrem: General: Yes normal to inspection Course Course Course Narrative: 1714 Reevaluation(s) Reevaluation #1: 1715 AP exam consistent with cyclic vomiting inconsistent with her story about cannabis use. Complaint of lower abdominal pain with gradual onset after having nausea vomiting for 2 days progressively getting worse. Will check labs including CBC, comprehensive metabolic profile, urine and urine toxicology screen. Will treat with IV fluids, IV Zofran, IV Ativan. At this time no signs or symptoms of infectious process. Substance not suspected. Vital signs are stable. Will re-evaluate and dispo per plan. Reevaluation #2: Was able to sleep after initial treatment will cup dry heaving drink a couple water advised not to drink anything and vomited clear. She was subsequently given additional antiemetic. Labs overall reassuring. No leukocytosis. Compressive metabolic profile without significant abnormality. UA shows forty ketone, 2+ leukocyte Estrace, RBC 0-2, WBC 15-29, 4+ epithelial, no nitrate. She also had ultrasound that was unremarkable. She declined pelvic exam given her recurrent PID plan for re- evaluation however she declined given that she had ultrasound and pelvic sent with Gynecology. Will give her another L of fluid and re-evaluate. Reevaluation #3: Has been resting comfortably requesting p.o. intake. Tolerated p.o. intake well. Has gynecology appointment coming up in 2 days here at [facility], also seen Dr. Walton urology. Overall at this point no indication to keep her in the emergency room. She again did test positive for marijuana I did have a discussion with her regarding THC induced hyperemesis. She will be discharged home with clear precaution return follow-up instructions she feels comfortable. MDM - Abdominal Pain Lab Data Result diagrams: 05/05/21 17:19 05/05/21 18:24 Labs: Lab Results 05/05/21 05/05/21 05/05/21 Range/Units 17:19 17:33 17:33 WBC 9.5 (4.8-10.8) X10*3/uL RBC 4.35 (4.20-5.50) X10*6/uL Hgb 10.4 L (12.0-16.0) g/dl Hct 34.3 L (37-47) % MCV 78.9 L (80-98) fL MCH 23.9 L (27.0-33.0) pg MCHC 30.3 L (31.0-35.0) g/dl RDW 16.8 H (11.0-16.0) % Plt Count 224 D (160-400) X10*3/uL MPV 12.6 H (9.4-12.3) fL Immature Gran % (Auto) 0.2 (0.0-0.4) % Neut % (Auto) 85.3 H (45-73) % Lymph % (Auto) 10.2 L (20-40) % [place] % (Auto) 3.9 (2-11) % Eos % (Auto) 0.2 (0-4) % Baso % (Auto) 0.2 (0-2) % Lymph # (Auto) 1.0 L (1.2-4.9) X10*3/uL [place] # (Auto) 0.4 (0.1-1.2) X10*3/uL Eos # (Auto) 0.0 (0.0-0.4) X10*3/uL Baso # (Auto) 0.0 (0.0-0.2) X10*3/uL Abs Immat Gran (auto) 0.02 (0.00-0.03) X10*3/uL Absolute Neuts (auto) 8.1 (2.0-8.3) X10*3/uL Absolute Nucleated RBC 0.000 (0.0-0.012) X10*3/uL Nucleated RBC % (auto) 0.0 (0.0-0.2) /100WBC Sodium (135-145) mmol/L Potassium (3.3-5.1) mmol/L Chloride (96-108) mmol/L Carbon Dioxide (22-29) mmol/L Anion Gap (12-20) BUN (9-16) mg/dL Creatinine (0.5-1.4) mg/dL Estim Creat Clear Calc Estimated GFR Random Glucose (60-115) mg/dL Calcium (8.4-10.2) mg/dL Total Bilirubin (0.0-1.0) mg/dL AST (5-31) U/L ALT (0-31) U/L Alkaline Phosphatase (39-117) U/L Total Protein (6.5-8.0) g/dL Albumin (3.5-5.0) g/dL Urine Color YELLOW Urine Appearance HAZY Urine pH 8.5 H (5.0-8.0) Ur Specific [place] 1.015 (1.005-1.025) Urine Protein 1+ H (NEG-TRACE) MG/DL Urine Glucose (UA) NEG (NEG) MG/DL Urine Ketones 40 (NEG) MG/DL Urine Blood NEG (NEG) Urine Nitrite NEG (NEG) Ur Leukocyte Esterase 2+ H (NEG) Urine RBC 0-2 (0) /HPF Urine WBC 15-29 H (0-4) /HPF Ur Squamous Epith Cells 4+ /LPF Urine Bacteria 1+ /LPF Urine Test NEGATIVE (NEGATIVE) Urine Opiates Screen (Not Detect) Ur Barbiturates Screen (Not Detect) Ur Phencyclidine Scrn (Not Detect) Ur Amphetamines Screen (Not Detect) U Benzodiazepines Scrn (Not Detect) Urine Cocaine Screen (Not Detect) U Marijuana (THC) Screen (Not Detect) 05/05/21 05/05/21 Range/Units 17:33 18:24 WBC (4.8-10.8) X10*3/uL RBC (4.20-5.50) X10*6/uL Hgb (12.0-16.0) g/dl Hct (37-47) % MCV (80-98) fL MCH (27.0-33.0) pg MCHC (31.0-35.0) g/dl RDW (11.0-16.0) % Plt Count (160-400) X10*3/uL MPV (9.4-12.3) fL Immature Gran % (Auto) (0.0-0.4) % Neut % (Auto) (45-73) % Lymph % (Auto) (20-40) % [place] % (Auto) (2-11) % Eos % (Auto) (0-4) % Baso % (Auto) (0-2) % Lymph # (Auto) (1.2-4.9) X10*3/uL [place] # (Auto) (0.1-1.2) X10*3/uL Eos # (Auto) (0.0-0.4) X10*3/uL Baso # (Auto) (0.0-0.2) X10*3/uL Abs Immat Gran (auto) (0.00-0.03) X10*3/uL Absolute Neuts (auto) (2.0-8.3) X10*3/uL Absolute Nucleated RBC (0.0-0.012) X10*3/uL Nucleated RBC % (auto) (0.0-0.2) /100WBC Sodium 140 (135-145) mmol/L Potassium 3.8 (3.3-5.1) mmol/L Chloride 110 H (96-108) mmol/L Carbon Dioxide 19 L (22-29) mmol/L Anion Gap 15 (12-20) BUN 10 (9-16) mg/dL Creatinine 0.73 (0.5-1.4) mg/dL Estim Creat Clear Calc 94.1 Estimated GFR > 60 Random Glucose 101 (60-115) mg/dL Calcium 9.0 (8.4-10.2) mg/dL Total Bilirubin 0.4 (0.0-1.0) mg/dL AST 16 (5-31) U/L ALT 10 (0-31) U/L Alkaline Phosphatase 68 (39-117) U/L Total Protein 8.1 H (6.5-8.0) g/dL Albumin 4.3 (3.5-5.0) g/dL Urine Color Urine Appearance Urine pH (5.0-8.0) Ur Specific [place] (1.005-1.025) Urine Protein (NEG-TRACE) MG/DL Urine Glucose (UA) (NEG) MG/DL Urine Ketones (NEG) MG/DL Urine Blood (NEG) Urine Nitrite (NEG) Ur Leukocyte Esterase (NEG) Urine RBC (0) /HPF Urine WBC (0-4) /HPF Ur Squamous Epith Cells /LPF Urine Bacteria /LPF Urine Test (NEGATIVE) Urine Opiates Screen Not Detected (Not Detect) Ur Barbiturates Screen Not Detected (Not Detect) Ur Phencyclidine Scrn Not Detected (Not Detect) Ur Amphetamines Screen Not Detected (Not Detect) U Benzodiazepines Scrn Not Detected (Not Detect) Urine Cocaine Screen Not Detected (Not Detect) U Marijuana (THC) Screen POSITIVE H (Not Detect) Discharge Plan Discharge Clinical Impression: Intractable nausea and vomiting Patient Disposition: Home, Self-Care Instructions: Acute Nausea and Vomiting (ED) Additional Instructions: Please take medication prescribed Please follow-up with lock assembler as planned Please follow up with urologist as planned Please avoid any cannabis use S this is likely precipitating factor in her symptoms and is making your medical conditions worse. Gradually increase her diet Take her anti nausea medication prescribed Push fluids Return if any concerns or worsening symptoms Thank you Prescriptions: New ondansetron HCl [Zofran] 4 mg tablet 4 mg PO Q8H PRN (Reason: nausea and vomiting) Qty: 10 RF: 0 No Action ondansetron HCl [Zofran] 4 mg tablet 4 mg PO Q8H PRN (Reason: nausea and vomiting) Qty: 14 RF: 0 acetaminophen 500 mg tablet 2 tab PO QID PRN (Reason: fever) RF: 0 norethindrone (contraceptive) 0.35 mg tablet 0.35 mg PO DAILY Qty: 84 RF: 3 ibuprofen 800 mg tablet 1 tab PO Q8H PRN (Reason: pain) Qty: 60 RF: 1 omeprazole 40 mg capsule,delayed release(DR/EC) 40 mg PO DAILY 30 Days Qty: 30 RF: 1 methenamine hippurate 1 gram tablet 1 g PO DAILY 14 Days Qty: 14 RF: 0 ascorbic acid (vitamin C) 1,000 mg tablet 1 g PO DAILY 14 Days Qty: 14 RF: 0 doxycycline hyclate 100 mg capsule 100 mg PO BID 5 Days Qty: 10 RF: 0 fosfomycin tromethamine 3 gram packet 1 packet PO Q OTHER DAY Qty: 3 RF: 0 fluconazole 150 mg tablet 150 mg PO DAILY 1 Days Qty: 1 RF: 0 Referrals: Cele Rice DO [Physician] - 2 days Interventions: ED Discharge Assessment Last Done: 05/05/21 23:11 Discharge Date/Time: 05/05/21 23:12 [facility] Past Medical History Medical History (Updated 05/05/21 @ 22:18 by Wilbert Mack NP) Abscess Cyclical vomiting Hidradenitis suppurativa Hypokalemia Hypothyroidism Marijuana abuse Opioid abuse Pelvic inflammatory disease Pyelonephritis UTI (urinary tract infection) Surgical History Tubal ligation status Family History Family History Other Heart disease Social History Social History Household Members: Children Housing: House Do you presently have visiting nurse or other home services: No Alcohol intake: current Alcohol intake frequency: holidays/special occasions only Patient Tobacco Use Status: Current everyday Tobacco user Cigarettes Per Day: 3 Years Smoked: 20 Second Hand Smoke Exposure: Yes Use of substances other than those prescribed or required for medical reasons: No Substance Use Type: Marijuana Advance Directives: Yes Advance Directives on File: Yes Advance Directives Date on File: 01/02/21 Patient : No service: No Current occupational status: employed
[2021-05-05] MEDS: ondansetron HCL 4 MG/2 ML VIAL IVPUSH (17:24)
[2021-05-05] MEDS: LORazepam 2 MG/ML VIAL 1 MG IVPUSH (17:25)
[2021-05-05] MEDS: 0.9 % Sodium Chloride 1,000 ML 999 ML IV (17:25)
[2021-05-05] MEDS: Ketorolac Tromethamine 30 MG/ML VIAL IVPUSH (17:25)
[2021-05-05 17:27] LABS: MANUAL DIFF FLAG NO
[2021-05-05 17:34] LABS: Basophils Percent Auto 0.2 % (0-2); Eosinophils Percent Auto 0.2 % (0-4); Imm Gran Abs Auto 0.02 X10*3/uL (0.00-0.03); Imm Gran Pct Auto 0.2 % (0.0-0.4); Mean Corpuscular Volume 78.9 fL (80-98); Red Cell Distribution Width 16.8 % (11.0-16.0); SCAN SMEAR FLAG 1
[2021-05-05 17:36] LABS: Hematocrit 34.3 % (37-47); Hemoglobin 10.4 g/dl (12.0-16.0); Lymphocytes Percent Auto 10.2 % (20-40); Mean Corpuscular HGB Conc 30.3 g/dl (31.0-35.0); Mean Corpuscular Hemoglobin 23.9 pg (27.0-33.0); Mean Platelet Volume 12.6 fL (9.4-12.3); Monocytes Absolute Auto 0.4 X10*3/uL (0.1-1.2); Monocytes Percent Auto 3.9 % (2-11); Neutrophils Absolute Auto 8.1 X10*3/uL (2.0-8.3); Neutrophils Percent Auto 85.3 % (45-73); Platelet Count 224 X10*3/uL (160-400); Red Blood Count 4.35 X10*6/uL (4.20-5.50); White Blood Count 9.5 X10*3/uL (4.8-10.8)
[2021-05-05 17:44] LABS: Glucose Urine UA NEG (NEG); Leukocyte Esterase Urine 2+ (NEG); Nitrite Urine NEG (NEG); PH 8.5 (5.0-8.0); Specific Gravity - Urine 1.015 (1.005-1.025); UACC Culture Trigger YES; Urine Blood NEG (NEG); Urine Ketones 40 MG/DL (NEG); Urine Protein 1+ MG/DL (NEG-TRACE)
[2021-05-05 17:45] LABS: Appearance Urine HAZY; Color Urine YELLOW
[2021-05-05 17:46] LABS: PLT ABN DIST 1
[2021-05-05 17:52] LABS: Bacteria Urine 1+ /LPF; RBC Urine 0-2 /HPF (0); Squamous Epithelial Cell Urine 4+ /LPF; UACC CULT YES
[2021-05-05 17:53] LABS: UPreg QC Valid YES; Urine Pregnancy NEGATIVE (NEGATIVE)
[2021-05-05 18:06] LABS: Amphetamine Screen Urine Not Detected (Not Detect); Barbiturates, Urine Not Detected (Not Detect); Benzodiazepines Screen Urine Not Detected (Not Detect); Cannabinoid Screen Urine POSITIVE (Not Detect); Cocaine Screen Urine Not Detected (Not Detect); Opiate Screen Urine Not Detected (Not Detect); Phencyclidine Screen Urine Not Detected (Not Detect)
[2021-05-05] MEDS: Haloperidol Lactate 5 MG/ML VIAL IM (18:34)
[2021-05-05 18:49] LABS: Alanine Aminotransferase 10 U/L (0-31); Albumin Level 4.3 g/dL (3.5-5.0); Alkaline Phosphatase 68 U/L (39-117); Anion Gap 15 (12-20); Aspartate Amino Transferase 16 U/L (5-31); Bilirubin Total 0.4 mg/dL (0.0-1.0); Blood Urea Nitrogen 10 mg/dL (9-16); Carbon Dioxide 19 mmol/L (22-29); Chloride 110 mmol/L (96-108); Creatinine Clr Calc Pharmacy 94.1; Estimated Glomerular Filt Rate > 60; Glucose Random 101 mg/dL (60-115); Potassium 3.8 mmol/L (3.3-5.1); Sodium 140 mmol/L (135-145); Total Protein 8.1 g/dL (6.5-8.0)
[2021-05-05 18:50] VITALS: BP 161/100; PULSE 74; RESP 18; TEMP 36.9; O2SAT 100
[2021-05-05 21:22] VITALS: BP 158/95; PULSE 88; RESP 18; O2SAT 100
[2021-05-05] MEDS: HYDROmorphone HCl 0.5 MG/0.5 ML SYRINGE IVPUSH (21:24)
[2021-05-05 23:09] VITALS: BP 129/68; PULSE 85; O2SAT 94
== END 2021-05-05 23:12 | disposition home or self-care (01) ==
PROVIDERS: Nurse Practitioner Primary Care; Emergency Provider Internal Medicine; PCP Family Medicine
DX: R11.2 Nausea with vomiting, unspecified (principal); R10.30 Lower abdominal pain, unspecified; F12.10 Cannabis abuse, uncomplicated
CPT/HCPCS: 36415; 76856; 80053; 80307; 81001; 81025; 85025; 87086; 96361; 96372; 96374; 96375; 99284; 99285; J1170; J1885; J2060; J2405

== ENCOUNTER 2021-05-11 14:16 | Emergency (ER) | payer OTHER, SELFPAY ==
--- NOTE | ~2021-05-11 | CT_ITS ---
EXAMINATION: CT ABDOMEN AND PELVIS WITH CONTRAST CLINICAL INFORMATION: Abdominal pain COMPARISON: CT scan abdomen pelvis February 04, 2021. Pelvic ultrasound February 07, 2021 TECHNIQUE: Multidetector volumetric images were obtained from the superior aspect of the liver through the pubic symphysis following administration 85 mL of Omnipaque 350 intravenous contrast. Sagittal and coronal reformatted images were obtained on the technologist's workstation. Oral contrast: No This CT examination was performed using dose optimization techniques as appropriate, variously including the following: *Automated exposure control *Adjustment of mA and/or kV according to patient size (this includes techniques or standardized protocols for targeted exams where dose is matched to indication/reason for exam; i.e. extremities or head) *Use of iterative reconstruction technique DLP: 502 mGy-cm FINDINGS: LUNG BASES: The visualized lung bases are unremarkable. LIVER, GALLBLADDER, AND BILIARY TREE: The liver is normal in size, shape, and attenuation. No focal hepatic lesion or biliary ductal dilatation is present. The gallbladder is unremarkable with no evidence of radiopaque gallstones, gallbladder wall thickening, or obvious pericholecystic inflammatory changes. PANCREAS: Unremarkable. SPLEEN: Unremarkable. ADRENAL GLANDS: Unremarkable. KIDNEYS AND URETERS: The kidneys are normal in size, shape, and attenuation. No hydronephrosis, hydroureter, or calculi seen. No perinephric stranding. BLADDER: Unremarkable. GASTROINTESTINAL TRACT: The small and large bowel are unremarkable. The appendix is unremarkable. ABDOMINAL WALL: No significant hernia is appreciated. LYMPH NODES: Normal. VASCULAR: Unremarkable. PELVIC VISCERA: Uterus is anteverted. No adnexal abnormality. 2 cm cyst in the left side of the vaginal stripe. This is unchanged since prior studies. OSSEOUS STRUCTURES: Unremarkable. CT/CT abdomen pelvis w con IMPRESSION: No acute abnormality CT scan abdomen pelvis.
[2021-05-11 14:23] VITALS: BP 103/70; BP 157/101; PULSE 79; PULSE 80; RESP 16; TEMP 36.9; O2SAT 100; O2SAT 96; BMI 26.6
[2021-05-11 14:44] LABS: Basophils Percent Auto 0.2 % (0-2); Eosinophils Absolute Auto 0.1 X10*3/uL (0.0-0.4); Eosinophils Percent Auto 1.7 % (0-4); Imm Gran Abs Auto 0.03 X10*3/uL (0.00-0.03); Imm Gran Pct Auto 0.4 % (0.0-0.4); MANUAL DIFF FLAG SCAN; SCAN SMEAR FLAG 1
[2021-05-11 14:46] LABS: Hematocrit 34.5 % (37-47); Hemoglobin 10.3 g/dl (12.0-16.0); Lymphocytes Absolute Auto 1.8 X10*3/uL (1.2-4.9); Lymphocytes Percent Auto 22.4 % (20-40); Mean Corpuscular HGB Conc 29.9 g/dl (31.0-35.0); Mean Corpuscular Hemoglobin 23.7 pg (27.0-33.0); Mean Corpuscular Volume 79.5 fL (80-98); Mean Platelet Volume 12.3 fL (9.4-12.3); Monocytes Absolute Auto 0.7 X10*3/uL (0.1-1.2); Monocytes Percent Auto 8.9 % (2-11); Neutrophils Absolute Auto 5.3 X10*3/uL (2.0-8.3); Neutrophils Percent Auto 66.4 % (45-73); Platelet Count 178 X10*3/uL (160-400); Red Blood Count 4.34 X10*6/uL (4.20-5.50); Red Cell Distribution Width 17.3 % (11.0-16.0); White Blood Count 8.1 X10*3/uL (4.8-10.8)
[2021-05-11 14:51] LABS: PLT ABN DIST 1
[2021-05-11 15:03] LABS: Alanine Aminotransferase 10 U/L (0-31); Albumin Level 4.6 g/dL (3.5-5.0); Alkaline Phosphatase 68 U/L (39-117); Anion Gap 15 (12-20); Aspartate Amino Transferase 19 U/L (5-31); Bilirubin Total 0.3 mg/dL (0.0-1.0); Blood Urea Nitrogen 13 mg/dL (9-16); Calcium 9.6 mg/dL (8.4-10.2); Carbon Dioxide 21 mmol/L (22-29); Chloride 105 mmol/L (96-108); Creatinine Clr Calc Pharmacy 90.6; Estimated Glomerular Filt Rate > 60; Glucose Random 103 mg/dL (60-115); Sodium 137 mmol/L (135-145); Total Protein 8.7 g/dL (6.5-8.0)
[2021-05-11 15:13] LABS: SLIDE REVIEW VERIFIED
[2021-05-11 15:15] LABS: Lipase 96 U/L (8-78)
[2021-05-11 15:25] LABS: HCG Quantitative < 2 mIU/mL
[2021-05-11] MEDS: ondansetron HCL 4 MG/2 ML VIAL IVPUSH (15:33)
[2021-05-11] MEDS: Ketorolac Tromethamine 30 MG/ML VIAL IVPUSH (15:33)
[2021-05-11] MEDS: diphenhydrAMINE HCL 50 MG/ML VIAL IVPUSH (15:34)
[2021-05-11] MEDS: 0.9 % Sodium Chloride 1,000 ML 999 ML IV (15:34)
[2021-05-11 16:37] LABS: Glucose Urine UA NEG (NEG); Leukocyte Esterase Urine 1+ (NEG); Nitrite Urine NEG (NEG); UACC Culture Trigger YES; Urine Blood NEG (NEG); Urine Ketones 15 MG/DL (NEG); Urine Protein NEG (NEG-TRACE)
[2021-05-11 16:38] LABS: Appearance Urine HAZY; Color Urine YELLOW
[2021-05-11 16:55] LABS: Bacteria Urine 1+ /LPF; RBC Urine 0-2 /HPF (0); Squamous Epithelial Cell Urine 3+ /LPF
[2021-05-11 18:00] VITALS: BP 119/74; PULSE 79; RESP 16; O2SAT 98
[2021-05-11] MEDS: iohexoL 350 MG/ML 100 ML INFUS..BTL IV (18:20)
[2021-05-11] MEDS: Morphine Sulfate 2 MG/ML CARTRIDGE IVPUSH (18:23)
[2021-05-11 20:00] VITALS: BP 136/88; PULSE 78; RESP 16; O2SAT 100
--- NOTE | 2021-05-11 20:11 | ED.ABDPAIN ---
HPI - Abdominal Pain General Chief Complaint: Abdominal Pain Stated Complaint: ABD PAIN/VOMITING/CHILLS Time Seen by Provider: 05/11/21 16:59 Source: patient Mode of arrival: ambulatory Limitations: no limitations History of Present Illness HPI narrative: patient presents to ED for lower abdominal pain, nausea and vomiting, since yesterday. Patient states history of chronic recurring UTI that caused her to have her symptoms and is being followed by specialist for chronic urinary tract infections. Patient states also history of cyclic vomiting have seen in the ED many times for similar presentation. Patient states no fever, chills, hematuria, dysuria, vaginal discharge, or vaginal bleeding. Patient denies any recent unprotected sexual activity. patient isn't ready on chronic antibiotics and vitamin-C pills for UTI Related Data Home Medications Medication Instructions Recorded Confirmed acetaminophen 2 tab PO QID PRN 03/21/21 03/24/21 doxycycline hyclate 100 mg tablet 100 mg PO BID 04/04/21 ferrous sulfate 324 mg (65 mg 324 mg PO BID 04/04/21 iron) tablet,delayed release metronidazole 500 mg tablet 500 mg PO BID 04/04/21 prochlorperazine 25 mg rectal 0 mg CO 04/04/21 suppository Previous Rx's Medication Instructions Recorded ondansetron HCl [Zofran] 4 mg PO Q8H PRN #14 tab 01/04/21 ibuprofen 1 tab PO Q8H PRN #60 tab 03/23/21 norethindrone (contraceptive) 0.35 mg PO DAILY #84 tab 03/23/21 omeprazole 40 mg PO DAILY 30 Days #30 cap 03/23/21 doxycycline hyclate 100 mg capsule 100 mg PO BID 5 Days #10 cap 05/03/21 fluconazole 150 mg tablet 150 mg PO DAILY 1 Days #1 tab 05/03/21 fosfomycin tromethamine 3 gram 1 packet PO Q OTHER DAY #3 ea 05/03/21 oral packet ondansetron HCl [Zofran] 4 mg PO Q8H PRN #10 tab 05/05/21 ascorbic acid (vitamin C) 1,000 mg 1 g PO DAILY 90 Days #90 tab NS 05/11/21 tablet methenamine hippurate 1 gram tablet 1 g PO DAILY 90 Days #90 tab 05/11/21 oxycodone-acetaminophen [Percocet] 1 tab PO TID PRN #9 tab 05/11/21 Allergies Allergy/AdvReac Type Severity Reaction Status Date / Time amoxicillin [Amoxicillin] Allergy Intermediate HIVES Verified 05/05/21 14:56 tramadol AdvReac Intermediate SOB Verified 05/05/21 14:56 Review of Systems Review of Systems Yes all other systems are reviewed and are negative Constitutional: Reports as per HPI and Reports no additional constitutional complaints Eyes: Reports as per HPI and Reports no additional eye complaints Reports system reviewed and no additional complaints, except as documented and Reports as per HPI Cardiovascular: Reports as per HPI and Reports no additional cardiovascular complaints Respiratory: Reports as per HPI and Reports no additional respiratory complaints Gastrointestinal: Reports as per HPI, Reports no additional gastrointestinal complaints, Reports abdominal pain, Reports nausea and Reports vomiting Genitourinary: Reports no additional female genitourinary complaints and Reports as per HPI Musculoskeletal: Reports no additional musculoskeletal complaints and Reports as per HPI Reports system reviewed and no additional complaints, except as documented and Reports as per HPI Psychiatric: Reports no additional psychiatric complaints and Reports as per HPI Physical Exam Vital Signs: Vital Signs: Last Vital Signs Temp 98.4 F 05/11/21 14:23 Pulse 78 05/11/21 20:00 Resp 16 05/11/21 20:00 BP 136/88 05/11/21 20:00 Pulse Ox 100 05/11/21 20:00 Body Mass Index 26.6 Const: General: cooperative, healthy appearing, comfortable and acute distress Orientation/consciousness: patient oriented x3 HENMT: Head: Yes normal to inspection, Yes No palpable skull fracture present, Yes normocephalic, Yes atraumatic and No abrasion Eyes: General: appearance normal, both eyes and all related structures Neck: Neck: Yes normal visual inspection, Yes full ROM, Yes no lymphadenopathy, Yes no meningeal signs, Yes trachea midline, Yes supple and No tender Chest: Chest palpation & inspection: normal inspection of the chest and normal palpation of entire chest wall Resp: Effort & Inspection: normal respiratory effort and able to speak in complete sentences Auscultation: clear to auscultation bilaterally Cardio: Jugular venous distension: no JVD Heart sounds: S1 normal heart sound present and S2 normal heart sound present GI: Inspection: Yes normal to inspection and No abdominal wall ecchymosis Palpation (GI): Tenderness to palpation present (GI) in the LLQ and in the RLQ; not at McBurney's point, not periumbilically, not suprapubicly, Lam's sign negative, obturator sign negative, psoas sign negative, with no rebound tenderness and Rovsing's sign negative, no guarding and not rigid : General: No CVA tenderness and Yes no CVA tenderness Back/Spine/Pelvis: Back: no CVA tenderness, No CVA tenderness and No back tenderness Skin: General skin exam: no rashes or lesions noted and elasticity normal Neuro: General: patient oriented x3, gait normal, no meningeal signs and CN's II-XI intact bilaterally Cranial nerves: Yes CN's II-XII intact bilaterally Extrem: General: Yes normal to inspection and Yes full ROM Psych: Appearance: grossly normal, well kempt and not disheveled Course Course Course Narrative: Patient have medical evaluation. Reevaluation(s) Reevaluation #1: Patient labs are baseline. Patient given Toradol and morphine for pain control. Urine shows UTI. Will send patient for abdominal CT scan to rule out any other abdominal etiology. Time: 21:32 Reevaluation #2: abdominal CT scan came back negative for any acute intra abdominal processes. Patient already on chronic antibiotics and vitamin-C pills for UTI. Patient feels better after medical intervention. Patient passed p.o. challenge. Patient will be discharged with pain medication. Patient informed to continue taking prescribed antibiotics and vitamin-C pills and she should follow up with the PCP and specialist urologist. Time: 21:33 MDM - Abdominal Pain MDM Narrative Medical decision making narrative: Chronic UTI. Abdominal pain Lab Data Result diagrams: 05/11/21 14:32 05/11/21 14:32 Labs: Lab Results 05/11/21 05/11/21 05/11/21 Range/Units 14:32 14:32 16:23 WBC 8.1 (4.8-10.8) X10*3/uL RBC 4.34 (4.20-5.50) X10*6/uL Hgb 10.3 L (12.0-16.0) g/dl Hct 34.5 L (37-47) % MCV 79.5 L (80-98) fL MCH 23.7 L (27.0-33.0) pg MCHC 29.9 L (31.0-35.0) g/dl RDW 17.3 H (11.0-16.0) % Plt Count 178 (160-400) X10*3/uL MPV 12.3 (9.4-12.3) fL Immature Gran % (Auto) 0.4 (0.0-0.4) % Neut % (Auto) 66.4 (45-73) % Lymph % (Auto) 22.4 (20-40) % [place] % (Auto) 8.9 (2-11) % Eos % (Auto) 1.7 (0-4) % Baso % (Auto) 0.2 (0-2) % Lymph # (Auto) 1.8 (1.2-4.9) X10*3/uL [place] # (Auto) 0.7 (0.1-1.2) X10*3/uL Eos # (Auto) 0.1 (0.0-0.4) X10*3/uL Baso # (Auto) 0.0 (0.0-0.2) X10*3/uL Abs Immat Gran (auto) 0.03 (0.00-0.03) X10*3/uL Absolute Neuts (auto) 5.3 (2.0-8.3) X10*3/uL Absolute Nucleated RBC 0.000 (0.0-0.012) X10*3/uL Nucleated RBC % (auto) 0.0 (0.0-0.2) /100WBC Smear Tech's Comments VERIFIED Sodium 137 (135-145) mmol/L Potassium 4.0 (3.3-5.1) mmol/L Chloride 105 (96-108) mmol/L Carbon Dioxide 21 L (22-29) mmol/L Anion Gap 15 (12-20) BUN 13 (9-16) mg/dL Creatinine 0.77 (0.5-1.4) mg/dL Estim Creat Clear Calc 90.6 Estimated GFR > 60 Random Glucose 103 (60-115) mg/dL Calcium 9.6 D (8.4-10.2) mg/dL Total Bilirubin 0.3 (0.0-1.0) mg/dL AST 19 (5-31) U/L ALT 10 (0-31) U/L Alkaline Phosphatase 68 (39-117) U/L Total Protein 8.7 H (6.5-8.0) g/dL Albumin 4.6 (3.5-5.0) g/dL Lipase 96 H (8-78) U/L Beta HCG, Quant < 2 mIU/mL Urine Color YELLOW Urine Appearance HAZY Urine pH 8.0 (5.0-8.0) Ur Specific [place] 1.020 (1.005-1.025) Urine Protein NEG (NEG-TRACE) MG/DL Urine Glucose (UA) NEG (NEG) MG/DL Urine Ketones 15 (NEG) MG/DL Urine Blood NEG (NEG) Urine Nitrite NEG (NEG) Ur Leukocyte Esterase 1+ H (NEG) Urine RBC 0-2 (0) /HPF Urine WBC 10-14 H (0-4) /HPF Ur Squamous Epith Cells 3+ /LPF Urine Bacteria 1+ /LPF Discharge Plan Discharge Clinical Impression: Chronic lower urinary tract infection, Nausea & vomiting Patient Disposition: Home, Self-Care Instructions: Urinary Tract Infection in Women (ED), Acute Nausea and Vomiting (ED), Abdominal Pain (ED) Additional Instructions: your abdominal CT scan came back normal. Your urine came back positive for chronic urinary tract infection. Your labs came back normal. Return to the ED immediately for worsening abdominal pain, flank pain, fever, chills, weakness, dizziness, vaginal bleeding, vaginal discharge, or any other concerning symptoms. Please take your antibiotics he will already prescribed and follow-up with PCP. Prescriptions: New oxycodone-acetaminophen [Percocet] 5-325 mg tablet 1 tab PO TID PRN (Reason: pain) Qty: 9 RF: 0 No Action ascorbic acid (vitamin C) 1,000 mg tablet 1 g PO DAILY 90 Days Qty: 90 RF: 0 methenamine hippurate 1 gram tablet 1 g PO DAILY 90 Days Qty: 90 RF: 0 ondansetron HCl [Zofran] 4 mg tablet 4 mg PO Q8H PRN (Reason: nausea and vomiting) Qty: 14 RF: 0 acetaminophen 500 mg tablet 2 tab PO QID PRN (Reason: fever) RF: 0 norethindrone (contraceptive) 0.35 mg tablet 0.35 mg PO DAILY Qty: 84 RF: 3 ibuprofen 800 mg tablet 1 tab PO Q8H PRN (Reason: pain) Qty: 60 RF: 1 omeprazole 40 mg capsule,delayed release(DR/EC) 40 mg PO DAILY 30 Days Qty: 30 RF: 1 ondansetron HCl [Zofran] 4 mg tablet 4 mg PO Q8H PRN (Reason: nausea and vomiting) Qty: 10 RF: 0 doxycycline hyclate 100 mg capsule 100 mg PO BID 5 Days Qty: 10 RF: 0 fosfomycin tromethamine 3 gram packet 1 packet PO Q OTHER DAY Qty: 3 RF: 0 fluconazole 150 mg tablet 150 mg PO DAILY 1 Days Qty: 1 RF: 0 Referrals: Navi Real MD [Primary Care Provider] - 2 days ( Urine shows positive chronic UTI. Labs came back at baseline. Abdominal CT scan negative for any acute abdominal etiology.) Stand Alone Forms: Work/School Release Interventions: ED Discharge Assessment Last Done: 05/11/21 20:43 Discharge Date/Time: 05/11/21 20:47 Print Language: [place] [facility] Past Medical History Medical History (Updated 05/11/21 @ 20:30 by RAMONE Reyes) Abscess Cyclical vomiting Hidradenitis suppurativa Hypokalemia Hypothyroidism Marijuana abuse Opioid abuse Pelvic inflammatory disease Pyelonephritis UTI (urinary tract infection) Surgical History Tubal ligation status Family History Family History Other Heart disease Social History Social History Household Members: Children Housing: House Do you presently have visiting nurse or other home services: No Alcohol intake: current Alcohol intake frequency: holidays/special occasions only Patient Tobacco Use Status: Current everyday Tobacco user Cigarettes Per Day: 3 Years Smoked: 20 Second Hand Smoke Exposure: Yes Substance Use Type: Marijuana Advance Directives: Yes Advance Directives on File: Yes Advance Directives Date on File: 01/02/21 Patient : No service: No Current occupational status: employed
== END 2021-05-11 20:47 | disposition home or self-care (01) ==
PROVIDERS: Physician Assistant; Emergency Provider Internal Medicine; PCP Family Medicine
DX: N39.0 Urinary tract infection, site not specified (principal); R11.2 Nausea with vomiting, unspecified; Z87.440 Personal history of urinary (tract) infections
CPT/HCPCS: 36415; 74177; 80053; 81001; 81003; 83690; 84702; 85025; 87086; 99284; 99285; J1200; J1885; J2270; J2405; Q9967

== ENCOUNTER → 2021-05-17 11:06 | Outpatient (BNVA) | payer OTHER, SELFPAY | PROVIDERS: PCP Family Medicine | DX: N30.00 Acute cystitis without hematuria (principal); D72.829 Elevated white blood cell count, unspecified; N73.9 Female pelvic inflammatory disease, unspecified; E87.6 Hypokalemia; E03.9 Hypothyroidism, unspecified; F17.210 Nicotine dependence, cigarettes, uncomplicated | CPT/HCPCS: 99212 ==

== ENCOUNTER 2021-06-05 09:59 | Outpatient (REF) | payer OTHER, SELFPAY ==
[2021-06-05 12:08] LABS: Hematocrit 32.1 % (37-47); Hemoglobin 9.4 g/dl (12.0-16.0); Mean Corpuscular HGB Conc 29.3 g/dl (31.0-35.0); Mean Corpuscular Hemoglobin 23.3 pg (27.0-33.0); Mean Corpuscular Volume 79.7 fL (80-98); Platelet Count 165 X10*3/uL (160-400); Red Blood Count 4.03 X10*6/uL (4.20-5.50); White Blood Count 5.6 X10*3/uL (4.8-10.8)
[2021-06-05 12:54] LABS: TSH reflex Free T4 1.25 uIU/mL (0.32-4.0)
[2021-06-06 05:22] LABS: CT PCR NOT DETECTED (Not Detect.); NG PCR NOT DETECTED (Not Detect.)
[2021-06-06 10:48] LABS: BV Int Neg Control Negative (Negative); BV Int Pos Control Positive (Positive)
[2021-06-08 04:56] LABS: HPV 16 RNA NOT DETECTED (NOT DETECTED); HPV mRNA E6/E7 rflx Detected (Not Detected)
== END 2021-06-05 10:00 | disposition home or self-care (01) ==
LOC: HO.LAB 09:59
PROVIDERS: PCP Family Medicine; Visit Provider Advanced Practice Midwife
DX: Z01.419 Encounter for gynecological examination (general) (routine) without abnormal findings (principal); N93.9 Abnormal uterine and vaginal bleeding, unspecified; N94.6 Dysmenorrhea, unspecified; F17.210 Nicotine dependence, cigarettes, uncomplicated; N83.209 Unspecified ovarian cyst, unspecified side; Z20.2 Contact with and (suspected) exposure to infections with a predominantly sexual mode of transmission
CPT/HCPCS: 36415; 84443; 85027; 87480; 87491; 87510; 87591; 87624; 87625; 87660; 88142

== ENCOUNTER 2021-07-07 08:34 | Inpatient (IN) | payer OTHER, SELFPAY ==
--- NOTE | ~2021-07-07 | CT_ITS ---
EXAMINATION: CT ABDOMEN AND PELVIS WITHOUT CONTRAST CLINICAL INFORMATION: Right-sided pain. COMPARISON: CT abdomen noncontrast 05/11/2021, pelvic ultrasound 05/05/2021 TECHNIQUE: Multidetector volumetric imaging was performed from the superior aspect of the liver through the pubic symphysis. No oral or intravenous contrast. Sagittal and coronal reformatted images were obtained on the technologist's workstation. This CT examination was performed using dose optimization techniques as appropriate, variously including the following: *Automated exposure control *Adjustment of mA and/or kV according to patient size (this includes techniques or standardized protocols for targeted exams where dose is matched to indication/reason for exam; i.e. extremities or head) *Use of iterative reconstruction technique DLP: 444 mGy-cm FINDINGS: LUNG BASES: The visualized lung bases are unremarkable. LIVER, GALLBLADDER, AND BILIARY TREE: The liver is normal in size, shape, and attenuation. No focal hepatic lesion or biliary ductal dilatation is present. The gallbladder is unremarkable with no evidence of radiopaque gallstones, gallbladder wall thickening, or obvious pericholecystic inflammatory changes. PANCREAS: Unremarkable. SPLEEN: Unremarkable. ADRENAL GLANDS: Unremarkable. KIDNEYS AND URETERS: The kidneys are normal in size, shape, and attenuation. No hydronephrosis, hydroureter, or calculi seen. No perinephric stranding. BLADDER: Unremarkable. GASTROINTESTINAL TRACT: There is no bowel obstruction or focal inflammatory changes in the bowel or mesentery. The appendix is normal. No pneumatosis or free air. No ascites or fluid collection. ABDOMINAL WALL: No significant hernia is appreciated. LYMPH NODES: There are some small nodes in the retroperitoneum just below the renal vessels, stable from prior study. No interval lymphadenopathy abdomen or pelvis. VASCULAR: Unremarkable. PELVIC VISCERA: Small right adnexal cyst 2.5 cm. Prior measurements ultrasound 05/05/2021 are 3.4 x 2.6 x 2.8 cm. Small amount of ascites right cul-de-sac, stable. Cyst 1.6 cm left lower vaginal vault, stable to borderline decreased. OSSEOUS STRUCTURES: Unremarkable. CT/CT abdomen pelvis wo con IMPRESSION: 1. No inflammatory changes in bowel or mesentery. Normal appendix. 2. No biliary ductal dilatation, hydronephrosis, or perinephric stranding. 3. Small right adnexal cyst 2.5 cm, decreased from ultrasound 05/05/2021. Mild pelvic ascites, stable.
[2021-07-07 08:57] VITALS: BP 163/86; PULSE 83; RESP 20; TEMP 36.6; O2SAT 95; BMI 26.6
--- NOTE | 2021-07-07 09:18 | ED_ITS ---
HPI - Nausea/Vomiting/Diarrhea General Chief complaint: Abdominal Pain Stated complaint: multiple multiple complaints Time Seen by Provider: 07/07/21 08:50 Source: patient and old records reviewed Mode of arrival: ambulatory Limitations: no limitations History of Present Illness MD elicited complaint: nausea, vomiting and abdominal pain Pertinent past history: other (hx of intractable n/v) Onset (ago): hour(s) (this AM) Description of vomiting: food contents Associated nausea: Yes Associated abdominal pain: Yes Location of pain: suprapubic Pain consistency: constant Severity: moderate Quality: aching Exacerbating factors: none Relieving factors: none Context: marijuana use and other (hx of similar episodes) Associated symptoms: fever/chills, loss of appetite and nausea/vomiting Related Data Home Medications Medication Instructions Recorded Confirmed methenamine hippurate 1 gram tablet 1 tab PO DAILY 07/07/21 07/07/21 Previous Rx's Medication Instructions Recorded ibuprofen 800 mg tablet 1 tab PO Q8H PRN #60 tab 03/23/21 ascorbic acid (vitamin C) 1,000 mg 1 g PO DAILY 90 Days #90 tab NS 05/11/21 tablet Allergies Allergy/AdvReac Type Severity Reaction Status Date / Time amoxicillin [Amoxicillin] Allergy Intermediate HIVES Verified 06/05/21 10:19 tramadol AdvReac Intermediate SOB Verified 06/05/21 10:19 Review of Systems Review of Systems: Constitutional : No Weight loss, No Fever, No Chills ENT/Mouth : No sore throat, No Rhinorrhea Eyes: No Swelling, No Redness Cardiovascular : No Chest Pain, No SOB, NoEdema Respiratory : No Cough, No Sputum, No Wheezing Gastrointestinal : Positive Nausea, Positive Vomiting, no Diarrhea, positive abdominal Pain, No Hematochezia, No Melena Genitourinary : No Dysuria, No Urinary Frequency, No Hematuria, No Urgency Musculoskeletal : No joint pain, No Myalgias, No Joint Swelling Skin : No Skin Lesions, No rash Neuro : No Weakness, No Numbness, No Dizziness, No Headache Psych : No Anxiety/Panic, No Depression Heme/Lymph: No Bruising, No Lymphadenopathy Endocrine : No Polyuria, No Polydipsia All other systems reviewed and are negative. Gastrointestinal: Gastrointestinal: Reports nausea PMFSH Past Medical History Attestation statement: The following information was validated with the patient. Medical History Abscess Cyclical vomiting Hidradenitis suppurativa Hypokalemia Hypothyroidism Marijuana abuse Opioid abuse Pelvic inflammatory disease Pyelonephritis UTI (urinary tract infection) Surgical History Tubal ligation status Family History Family History Mother CVD (cardiovascular disease) HTN (hypertension) Maternal Grandmother High cholesterol HTN (hypertension) Maternal Grandfather Prostate cancer Other Heart disease Social History Social History Household Members: Children Housing: House Do you presently have visiting nurse or other home services: No Alcohol intake: current Alcohol intake frequency: holidays/special occasions only Patient Tobacco Use Status: Current everyday Tobacco user Cigarettes Per Day: 3 Years Smoked: 20 Second Hand Smoke Exposure: Yes Substance Use Type: Marijuana Advance Directives: Yes Advance Directives on File: Yes Advance Directives Date on File: 01/02/21 Patient : No service: No Current occupational status: employed Physical Exam Vital Signs: Vital Signs: Last Vital Signs Temp 98.1 F 07/07/21 10:24 Pulse 85 07/07/21 10:24 Resp 15 07/07/21 10:24 BP 134/75 07/07/21 10:24 Pulse Ox 100 07/07/21 10:24 Body Mass Index 26.6 Appearance: Alert. Oriented X3. Anxious mild acute distress. active rigors Eyes: Pupils equal, round and reactive to light. ENT: Pharynx normal. Neck: Normal inspection. Neck supple. CVS: Normal heart rate and rhythm. Pulses normal. Respiratory: No respiratory distress. Breath sounds normal. Abdomen: Soft and moderate lower abdominal pain no rebound or guarding Skin: Skin warm and diaphoretic pale skin color. Normal skin turgor. Extremities: No lower extremity edema. No calf ttp Neuro: Oriented X 3. No motor deficit. No sensory deficit. Course Course Course Narrative: I did discuss the findings of her u tox with patient she denies that she is in withdrawal - added on additioinal medications, EKG, IVF empiric cefepime - patient appears like she is withdrawing but denies any chronic substance abuse increased pain - IV medications ordered and CT Scan for renal colic negative CT scan patietn still reports nausea and vomiting MDM - Nausea/Vomiting/Diarrhea MDM Narrative Medical decision making narrative: 41 yo female hx of UTIs, pyelonephritis, intractable n/v here with a few hours of n/v and lower abdominal pain and chills - at this time labs, IVF, IV morphine for pain, UA, dispo per results and improvement. Lab Data Result diagrams: 07/07/21 09:23 07/07/21 10:19 Labs: Lab Results 07/07/21 07/07/21 07/07/21 Range/Units 09:23 09:23 09:23 WBC 7.3 (4.8-10.8) X10*3/uL RBC 4.62 (4.20-5.50) X10*6/uL Hgb 10.9 L (12.0-16.0) g/dl Hct 36.3 L (37-47) % MCV 78.6 L (80-98) fL MCH 23.6 L (27.0-33.0) pg MCHC 30.0 L (31.0-35.0) g/dl RDW 17.4 H (11.0-16.0) % Plt Count 244 D (160-400) X10*3/uL MPV 12.1 (9.4-12.3) fL Immature Gran % (Auto) Cancelled Neut % (Auto) Cancelled Lymph % (Auto) Cancelled [place] % (Auto) Cancelled Eos % (Auto) Cancelled Baso % (Auto) Cancelled Lymph # (Auto) Cancelled [place] # (Auto) Cancelled Eos # (Auto) Cancelled Baso # (Auto) Cancelled Abs Immat Gran (auto) Cancelled Absolute Neuts (auto) Cancelled Absolute Nucleated RBC 0.000 (0.0-0.012) X10*3/uL Nucleated RBC % (auto) 0.0 (0.0-0.2) /100WBC Neutrophils % (Manual) 71 (45-73) % Band Neutrophils % 1 L (3-5) % Lymphocytes % (Manual) 23 (20-40) % Monocytes % (Manual) 5 (2-11) % Abs Neuts (Manual) 5.3 (2.2-7.9) X10*3/uL Lymphocytes # (Manual) 1.7 (0.6-4.8) X10*3/uL Monocytes # (Manual) 0.4 (0.0-1.2) X10*3/uL Platelet Estimate NORMAL (NORMAL) Plt Morphology Comment NORMAL RBC Morphology NOTED Hypochromasia 1+ (5-14) /OIF Sodium (135-145) mmol/L Potassium (3.3-5.1) mmol/L Chloride (96-108) mmol/L Carbon Dioxide (22-29) mmol/L Anion Gap (12-20) BUN (9-16) mg/dL Creatinine (0.5-1.4) mg/dL Estim Creat Clear Calc Estimated GFR Random Glucose (60-115) mg/dL Lactic Acid 2.6 H* (0.5-2.0) mmol/L Lactic Acid Fup @ 2Hr (0.5-2.0) mmol/L Calcium (8.4-10.2) mg/dL Magnesium (1.6-2.6) mg/dL Total Bilirubin (0.0-1.0) mg/dL Direct Bilirubin (0.0-0.5) mg/dL AST (5-31) U/L ALT (0-31) U/L Alkaline Phosphatase (39-117) U/L Total Protein (6.5-8.0) g/dL Albumin (3.5-5.0) g/dL Lipase (8-78) U/L Urine Color Urine Appearance Urine pH (5.0-8.0) Ur Specific [place] (1.005-1.025) Urine Protein (NEG-TRACE) MG/DL Urine Glucose (UA) (NEG) MG/DL Urine Ketones (NEG) MG/DL Urine Blood (NEG) Urine Nitrite (NEG) Ur Leukocyte Esterase (NEG) Urine RBC (0) /HPF Urine WBC (0-4) /HPF Ur Squamous Epith Cells /LPF Urine Bacteria /LPF Urine Mucus /LPF Urine Opiates Screen (Not Detect) Urine Fentanyl Screen (Not Detect) Ur Barbiturates Screen (Not Detect) Ur Phencyclidine Scrn (Not Detect) Ur Amphetamines Screen (Not Detect) U Benzodiazepines Scrn (Not Detect) Urine Cocaine Screen (Not Detect) U Marijuana (THC) Screen (Not Detect) COVID-19 (MILLICENT) Negative (Negative) COVID-19 Clin Com See Note 07/07/21 07/07/21 07/07/21 Range/Units 10:19 10:19 10:21 WBC (4.8-10.8) X10*3/uL RBC (4.20-5.50) X10*6/uL Hgb (12.0-16.0) g/dl Hct (37-47) % MCV (80-98) fL MCH (27.0-33.0) pg MCHC (31.0-35.0) g/dl RDW (11.0-16.0) % Plt Count (160-400) X10*3/uL MPV (9.4-12.3) fL Immature Gran % (Auto) Neut % (Auto) Lymph % (Auto) [place] % (Auto) Eos % (Auto) Baso % (Auto) Lymph # (Auto) [place] # (Auto) Eos # (Auto) Baso # (Auto) Abs Immat Gran (auto) Absolute Neuts (auto) Absolute Nucleated RBC (0.0-0.012) X10*3/uL Nucleated RBC % (auto) (0.0-0.2) /100WBC Neutrophils % (Manual) (45-73) % Band Neutrophils % (3-5) % Lymphocytes % (Manual) (20-40) % Monocytes % (Manual) (2-11) % Abs Neuts (Manual) (2.2-7.9) X10*3/uL Lymphocytes # (Manual) (0.6-4.8) X10*3/uL Monocytes # (Manual) (0.0-1.2) X10*3/uL Platelet Estimate (NORMAL) Plt Morphology Comment RBC Morphology Hypochromasia /OIF Sodium 139 (135-145) mmol/L Potassium 4.1 (3.3-5.1) mmol/L Chloride 110 H (96-108) mmol/L Carbon Dioxide 18 L (22-29) mmol/L Anion Gap 15 (12-20) BUN 10 (9-16) mg/dL Creatinine 0.82 (0.5-1.4) mg/dL Estim Creat Clear Calc 85.1 Estimated GFR > 60 Random Glucose 108 (60-115) mg/dL Lactic Acid (0.5-2.0) mmol/L Lactic Acid Fup @ 2Hr (0.5-2.0) mmol/L Calcium 9.0 D (8.4-10.2) mg/dL Magnesium 2.2 (1.6-2.6) mg/dL Total Bilirubin 0.5 (0.0-1.0) mg/dL Direct Bilirubin 0.2 (0.0-0.5) mg/dL AST 18 (5-31) U/L ALT 14 (0-31) U/L Alkaline Phosphatase 58 (39-117) U/L Total Protein 8.0 (6.5-8.0) g/dL Albumin 4.3 (3.5-5.0) g/dL Lipase 67 (8-78) U/L Urine Color Urine Appearance Urine pH (5.0-8.0) Ur Specific [place] (1.005-1.025) Urine Protein (NEG-TRACE) MG/DL Urine Glucose (UA) (NEG) MG/DL Urine Ketones (NEG) MG/DL Urine Blood (NEG) Urine Nitrite (NEG) Ur Leukocyte Esterase (NEG) Urine RBC (0) /HPF Urine WBC (0-4) /HPF Ur Squamous Epith Cells /LPF Urine Bacteria /LPF Urine Mucus /LPF Urine Opiates Screen POSITIVE H (Not Detect) Urine Fentanyl Screen POSITIVE H (Not Detect) Ur Barbiturates Screen Not Detected (Not Detect) Ur Phencyclidine Scrn Not Detected (Not Detect) Ur Amphetamines Screen Not Detected (Not Detect) U Benzodiazepines Scrn Not Detected (Not Detect) Urine Cocaine Screen POSITIVE H (Not Detect) U Marijuana (THC) Screen POSITIVE H (Not Detect) COVID-19 (MILLICENT) (Negative) COVID-19 Clin Com 07/07/21 07/07/21 Range/Units 10:21 12:47 WBC (4.8-10.8) X10*3/uL RBC (4.20-5.50) X10*6/uL Hgb (12.0-16.0) g/dl Hct (37-47) % MCV (80-98) fL MCH (27.0-33.0) pg MCHC (31.0-35.0) g/dl RDW (11.0-16.0) % Plt Count (160-400) X10*3/uL MPV (9.4-12.3) fL Immature Gran % (Auto) Neut % (Auto) Lymph % (Auto) [place] % (Auto) Eos % (Auto) Baso % (Auto) Lymph # (Auto) [place] # (Auto) Eos # (Auto) Baso # (Auto) Abs Immat Gran (auto) Absolute Neuts (auto) Absolute Nucleated RBC (0.0-0.012) X10*3/uL Nucleated RBC % (auto) (0.0-0.2) /100WBC Neutrophils % (Manual) (45-73) % Band Neutrophils % (3-5) % Lymphocytes % (Manual) (20-40) % Monocytes % (Manual) (2-11) % Abs Neuts (Manual) (2.2-7.9) X10*3/uL Lymphocytes # (Manual) (0.6-4.8) X10*3/uL Monocytes # (Manual) (0.0-1.2) X10*3/uL Platelet Estimate (NORMAL) Plt Morphology Comment RBC Morphology Hypochromasia /OIF Sodium (135-145) mmol/L Potassium (3.3-5.1) mmol/L Chloride (96-108) mmol/L Carbon Dioxide (22-29) mmol/L Anion Gap (12-20) BUN (9-16) mg/dL Creatinine (0.5-1.4) mg/dL Estim Creat Clear Calc Estimated GFR Random Glucose (60-115) mg/dL Lactic Acid (0.5-2.0) mmol/L Lactic Acid Fup @ 2Hr 1.8 (0.5-2.0) mmol/L Calcium (8.4-10.2) mg/dL Magnesium (1.6-2.6) mg/dL Total Bilirubin (0.0-1.0) mg/dL Direct Bilirubin (0.0-0.5) mg/dL AST (5-31) U/L ALT (0-31) U/L Alkaline Phosphatase (39-117) U/L Total Protein (6.5-8.0) g/dL Albumin (3.5-5.0) g/dL Lipase (8-78) U/L Urine Color YELLOW Urine Appearance HAZY Urine pH 7.5 (5.0-8.0) Ur Specific [place] 1.020 (1.005-1.025) Urine Protein TRACE (NEG-TRACE) MG/DL Urine Glucose (UA) NEG (NEG) MG/DL Urine Ketones NEG (NEG) MG/DL Urine Blood NEG (NEG) Urine Nitrite NEG (NEG) Ur Leukocyte Esterase 1+ H (NEG) Urine RBC 0 (0) /HPF Urine WBC 5-9 H (0-4) /HPF Ur Squamous Epith Cells 2+ /LPF Urine Bacteria 2+ /LPF Urine Mucus 1+ /LPF Urine Opiates Screen (Not Detect) Urine Fentanyl Screen (Not Detect) Ur Barbiturates Screen (Not Detect) Ur Phencyclidine Scrn (Not Detect) Ur Amphetamines Screen (Not Detect) U Benzodiazepines Scrn (Not Detect) Urine Cocaine Screen (Not Detect) U Marijuana (THC) Screen (Not Detect) COVID-19 (MILLICENT) (Negative) COVID-19 Clin Com ECG Data Attestation: I personally reviewed and interpreted this ECG as follows: ECG interpretation date: 07/07/21 ECG interpretation time: 11:10 Interpretation: Rate: 76 Rhythm: NSR [place]: normal Normal P waves. Normal PARRISH. Normal QRS complex. ST T wave : normal no CHERIE qTC: normal prior studies: no acute ischemia The study has been interpreted contemporaneously by me. . Discharge Plan Discharge Clinical Impression: Abdominal pain, UTI (urinary tract infection), Vomiting, Cocaine abuse, Pyelonephritis, Acidosis, lactic Patient Disposition: Admitted As Inpatient
[2021-07-07 09:31] LABS: Hematocrit 36.3 % (37-47); Hemoglobin 10.9 g/dl (12.0-16.0); Mean Corpuscular Hemoglobin 23.6 pg (27.0-33.0); Mean Corpuscular Volume 78.6 fL (80-98); Mean Platelet Volume 12.1 fL (9.4-12.3); PLT CLUMP 1; Red Blood Count 4.62 X10*6/uL (4.20-5.50); Red Cell Distribution Width 17.4 % (11.0-16.0)
[2021-07-07 09:32] LABS: WBC ABN SCTR FOR CBC 1
[2021-07-07] MEDS: Metoclopramide HCl 10 MG/2 ML VIAL IVPUSH (09:34)
[2021-07-07] MEDS: diphenhydrAMINE HCL 50 MG/ML VIAL 25 MG IVPUSH (09:36)
[2021-07-07] MEDS: Morphine Sulfate 4 MG/ML CARTRIDGE IVPUSH ×2 (09:36→12:49)
[2021-07-07] MEDS: 0.9 % Sodium Chloride 1,000 ML 999 ML IVCONT (09:37)
[2021-07-07 09:49] LABS: COVID-19 Test Negative (Negative)
[2021-07-07 09:55] LABS: Lactic Acid 2.6 mmol/L (0.5-2.0)
[2021-07-07 10:03] LABS: Band Neutrophils Percent 1 % (3-5); Lymphocytes Percent Manual 23 % (20-40); Monocytes Percent Manual 5 % (2-11); Neutrophils Percent Manual 71 % (45-73)
[2021-07-07 10:04] LABS: Hypochromasia 1+ (5-14) /OIF; Platelet Estimate NORMAL (NORMAL); Platelet Morphology Comment NORMAL; RBC Morphology NOTED
[2021-07-07 10:06] LABS: Lymphocytes Absolute Manual 1.7 X10*3/uL (0.6-4.8); Monocytes Absolute Manual 0.4 X10*3/uL (0.0-1.2); Neutrophils Absolute Manual 5.3 X10*3/uL (2.2-7.9); Platelet Count 244 X10*3/uL (160-400); White Blood Count 7.3 X10*3/uL (4.8-10.8)
[2021-07-07 10:24] VITALS: BP 134/75; PULSE 85; RESP 15; TEMP 36.7; O2SAT 100
[2021-07-07 10:35] LABS: Appearance Urine HAZY; Color Urine YELLOW; Glucose Urine UA NEG (NEG); Leukocyte Esterase Urine 1+ (NEG); Nitrite Urine NEG (NEG); PH 7.5 (5.0-8.0); UACC Culture Trigger YES; Urine Blood NEG (NEG); Urine Ketones NEG (NEG); Urine Protein TRACE MG/DL (NEG-TRACE)
--- NOTE | 2021-07-07 10:37 | PHA.MEDREC ---
Pharmacy Consult ? Medication Reconciliation Pharmacy has completed the medication reconciliation. Patient took meds this AM but vomitted right after. Angeli Amaya, KarenD
[2021-07-07 10:54] LABS: Anion Gap 15 (12-20); Blood Urea Nitrogen 10 mg/dL (9-16); Carbon Dioxide 18 mmol/L (22-29); Chloride 110 mmol/L (96-108); Creatinine Clr Calc Pharmacy 85.1; Estimated Glomerular Filt Rate > 60; Glucose Random 108 mg/dL (60-115); Potassium 4.1 mmol/L (3.3-5.1); Sodium 139 mmol/L (135-145)
[2021-07-07 10:55] LABS: Alanine Aminotransferase 14 U/L (0-31); Albumin Level 4.3 g/dL (3.5-5.0); Alkaline Phosphatase 58 U/L (39-117); Aspartate Amino Transferase 18 U/L (5-31); Bilirubin Direct 0.2 mg/dL (0.0-0.5); Bilirubin Total 0.5 mg/dL (0.0-1.0); Lipase 67 U/L (8-78); Magnesium 2.2 mg/dL (1.6-2.6)
[2021-07-07 10:56] LABS: Amphetamine Screen Urine Not Detected (Not Detect); Barbiturates, Urine Not Detected (Not Detect); Benzodiazepines Screen Urine Not Detected (Not Detect); Cannabinoid Screen Urine POSITIVE (Not Detect); Cocaine Screen Urine POSITIVE (Not Detect); Fentanyl, urine POSITIVE (Not Detect); Opiate Screen Urine POSITIVE (Not Detect); Phencyclidine Screen Urine Not Detected (Not Detect)
--- NOTE | 2021-07-07 11:00 | ECG_ITS ---
Test Reason : ABDOMINAL PAIN Blood Pressure : / mmHG Vent. Rate : 076 BPM Atrial Rate : 076 BPM P-R Int : 136 ms QRS Dur : 076 ms QT Int : 408 ms P-R-T Axes : 060 055 024 degrees QTc Int : 459 ms Normal sinus rhythm with sinus arrhythmia Possible Left atrial enlargement Borderline ECG When compared with ECG of 21-MAR-2021 22:28, QT has shortened Referred By: Latisha Moreno Electronically Signed By:HI DAVENPORT
[2021-07-07 11:06] LABS: Bacteria Urine 2+ /LPF
[2021-07-07 11:07] LABS: Mucus Urine 1+ /LPF; RBC Urine 0 /HPF (0); Squamous Epithelial Cell Urine 2+ /LPF
[2021-07-07] MEDS: Lactated Ringers 1,000 ML 999 ML IV (11:20)
[2021-07-07] MEDS: LORazepam 2 MG/ML VIAL 1 MG IVPUSH ×2 (11:23→18:08)
[2021-07-07] MEDS: cefEPime HCl 2 GM in 0.9 % Sodium Chloride 50 ML IV (11:23)
[2021-07-07] MEDS: Acetaminophen 325 MG TABLET 650 MG PO (11:23)
[2021-07-07 11:27] LABS: Reflex Lactate? Lactic Acid Added
[2021-07-07 13:19] LABS: ~Lactic Acid-LAB USE ONLY 1.8 mmol/L (0.5-2.0)
[2021-07-07] MEDS: Prochlorperazine Edisylate 10 MG/2 ML VIAL IVPUSH (16:04)
--- NOTE | 2021-07-07 16:53 | PM.IMHP ---
History of Present Illness Date of Service: 07/07/21 41yo F with hx cyclical vomiting, frequent UTI/pyelonephritis presenting with 2d of worsening dysuria, urinary frequency/urgency, and suprapubic pain with L flank pain. No hematuria. No fever but this am she woke up with sweats and chills. She has been nauseous and vomiting [non-bloody, non-bilious] all day. In the last year, she has had UTIs with Citrobacter, Enterococcus faecalis including VRE, and Pseudomonas aeurigonsa. Uses marijuana frequently. States she inhaled what she thought was cocaine 2d ago supplied by her nephew to relieve her stress, but this was a 1-time instance. Denies any known opioid abuse. No EtOH or tobacco. 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 In the ED, she was noted to have pyuria and bacteruria; lactic acidosis; and Utox positive for THC, opiates, fentanyl, and cocaine. She was given IV fluids and a dose of IV cefepime, along with lorazepam, compazine, metoclopramide, diphenhydramine, and morphine. Review of Systems Review of Systems: Yes all other systems are reviewed and are negative [facility] Medical History Abscess Cyclical vomiting Hidradenitis suppurativa Hypokalemia Hypothyroidism Marijuana abuse Opioid abuse Pelvic inflammatory disease Pyelonephritis UTI (urinary tract infection) Family History Mother CVD (cardiovascular disease) HTN (hypertension) Maternal Grandmother High cholesterol HTN (hypertension) Maternal Grandfather Prostate cancer Other Heart disease Surgical History Tubal ligation status Social History Household Members: Children Housing: House Do you presently have visiting nurse or other home services: No Alcohol intake: current Alcohol intake frequency: holidays/special occasions only Patient Tobacco Use Status: Current everyday Tobacco user Cigarettes Per Day: 3 Years Smoked: 20 Second Hand Smoke Exposure: Yes Substance Use Type: Marijuana Advance Directives: Yes Advance Directives on File: Yes Advance Directives Date on File: 01/02/21 Patient : No service: No Current occupational status: employed Meds Allergies Allergy/AdvReac Type Severity Reaction Status Date / Time amoxicillin [Amoxicillin] Allergy Intermediate HIVES Verified 06/05/21 10:19 tramadol AdvReac Intermediate SOB Verified 06/05/21 10:19 Active Medications: Current Medications Generic Name Dose Route Start Last Admin Trade Name Jelena PRN Reason Stop Dose Admin Ascorbic Acid 1,000 mg 07/08/21 09:00 Ascorbic Acid 500 Mg Tablet PO DAILY VICTOR M Clonidine HCl 0.1 mg 07/07/21 16:40 Clonidine Hcl 0.1 Mg Tablet PO TID PRN opioid withdrawal Protocol Levofloxacin 500 mg in 100 mls @ 100 mls/hr 07/07/21 18:00 Levaquin IV Q24H VICTOR M Ibuprofen 800 mg 07/07/21 16:40 Ibuprofen 800 Mg Tablet PO Q8H PRN pain Pharmacy Consult 1 each 07/07/21 09:01 Consult Rx Perform Med Rec MISCELLANE ONCE PRN Consult order Home Medications Medication Instructions Recorded Confirmed Last Taken Type methenamine hippurate 1 gram tablet 1 tab PO DAILY 07/07/21 07/07/21 07/07/21 History Physical Exam Vital Signs and Narrative: Vital Signs: Last Vital Signs Temp 98.1 F 07/07/21 10:24 Pulse 85 07/07/21 10:24 Resp 15 07/07/21 10:24 BP 134/75 07/07/21 10:24 Pulse Ox 100 07/07/21 10:24 Body Mass Index 26.6 Gen: in pain, drenched with sweat HEENT: sclera anicteric, moist mucus membranes Neck: supple Lungs: clear to auscultation bilaterally Heart: regular rate and rhythm, no murmurs Abd: soft, tender suprapubic area : L CVA tenderness Ext: no edema Skin: warm/well-perfused Neuro: alert and oriented x3, no focal findings Psych: anxious Results Labs CBC and Chem 7: 07/07/21 09:23 07/07/21 10:19 Labs: Laboratory Results - last 24 hr 07/07/21 07/07/21 07/07/21 09:23 09:23 09:23 MCV 78.6 L MCH 23.6 L MCHC 30.0 L RDW 17.4 H Plt Count 244 D MPV 12.1 Immature Gran % (Auto) Cancelled Neut % (Auto) Cancelled Lymph % (Auto) Cancelled [place] % (Auto) Cancelled Eos % (Auto) Cancelled Baso % (Auto) Cancelled Lymph # (Auto) Cancelled [place] # (Auto) Cancelled Eos # (Auto) Cancelled Baso # (Auto) Cancelled Abs Immat Gran (auto) Cancelled Absolute Neuts (auto) Cancelled Absolute Nucleated RBC 0.000 Nucleated RBC % (auto) 0.0 Neutrophils % (Manual) 71 Band Neutrophils % 1 L Lymphocytes % (Manual) 23 Monocytes % (Manual) 5 Abs Neuts (Manual) 5.3 Lymphocytes # (Manual) 1.7 Monocytes # (Manual) 0.4 Platelet Estimate NORMAL Plt Morphology Comment NORMAL RBC Morphology NOTED Hypochromasia 1+ (5-14) Anion Gap Estim Creat Clear Calc Estimated GFR Random Glucose Lactic Acid 2.6 H* Lactic Acid Fup @ 2Hr Calcium Magnesium Total Bilirubin Direct Bilirubin AST ALT Alkaline Phosphatase Total Protein Albumin Lipase Urine Color Urine Appearance Urine pH Ur Specific [place] Urine Protein Urine Glucose (UA) Urine Ketones Urine Blood Urine Nitrite Ur Leukocyte Esterase Urine RBC Urine WBC Ur Squamous Epith Cells Urine Bacteria Urine Mucus Urine Opiates Screen Urine Fentanyl Screen Ur Barbiturates Screen Ur Phencyclidine Scrn Ur Amphetamines Screen U Benzodiazepines Scrn Urine Cocaine Screen U Marijuana (THC) Screen COVID-19 (MILLICENT) Negative COVID-19 Clin Com See Note 07/07/21 07/07/21 07/07/21 10:19 10:19 10:21 MCV MCH MCHC RDW Plt Count MPV Immature Gran % (Auto) Neut % (Auto) Lymph % (Auto) [place] % (Auto) Eos % (Auto) Baso % (Auto) Lymph # (Auto) [place] # (Auto) Eos # (Auto) Baso # (Auto) Abs Immat Gran (auto) Absolute Neuts (auto) Absolute Nucleated RBC Nucleated RBC % (auto) Neutrophils % (Manual) Band Neutrophils % Lymphocytes % (Manual) Monocytes % (Manual) Abs Neuts (Manual) Lymphocytes # (Manual) Monocytes # (Manual) Platelet Estimate Plt Morphology Comment RBC Morphology Hypochromasia Anion Gap 15 Estim Creat Clear Calc 85.1 Estimated GFR > 60 Random Glucose 108 Lactic Acid Lactic Acid Fup @ 2Hr Calcium 9.0 D Magnesium 2.2 Total Bilirubin 0.5 Direct Bilirubin 0.2 AST 18 ALT 14 Alkaline Phosphatase 58 Total Protein 8.0 Albumin 4.3 Lipase 67 Urine Color Urine Appearance Urine pH Ur Specific [place] Urine Protein Urine Glucose (UA) Urine Ketones Urine Blood Urine Nitrite Ur Leukocyte Esterase Urine RBC Urine WBC Ur Squamous Epith Cells Urine Bacteria Urine Mucus Urine Opiates Screen POSITIVE H Urine Fentanyl Screen POSITIVE H Ur Barbiturates Screen Not Detected Ur Phencyclidine Scrn Not Detected Ur Amphetamines Screen Not Detected U Benzodiazepines Scrn Not Detected Urine Cocaine Screen POSITIVE H U Marijuana (THC) Screen POSITIVE H COVID-19 (MILLICENT) COVID-19 [employer] Com 07/07/21 07/07/21 10:21 12:47 MCV MCH MCHC RDW Plt Count MPV Immature Gran % (Auto) Neut % (Auto) Lymph % (Auto) [place] % (Auto) Eos % (Auto) Baso % (Auto) Lymph # (Auto) [place] # (Auto) Eos # (Auto) Baso # (Auto) Abs Immat Gran (auto) Absolute Neuts (auto) Absolute Nucleated RBC Nucleated RBC % (auto) Neutrophils % (Manual) Band Neutrophils % Lymphocytes % (Manual) Monocytes % (Manual) Abs Neuts (Manual) Lymphocytes # (Manual) Monocytes # (Manual) Platelet Estimate Plt Morphology Comment RBC Morphology Hypochromasia Anion Gap Estim Creat Clear Calc Estimated GFR Random Glucose Lactic Acid Lactic Acid Fup @ 2Hr 1.8 Calcium Magnesium Total Bilirubin Direct Bilirubin AST ALT Alkaline Phosphatase Total Protein Albumin Lipase Urine Color YELLOW Urine Appearance HAZY Urine pH 7.5 Ur Specific [place] 1.020 Urine Protein TRACE Urine Glucose (UA) NEG Urine Ketones NEG Urine Blood NEG Urine Nitrite NEG Ur Leukocyte Esterase 1+ H Urine RBC 0 Urine WBC 5-9 H Ur Squamous Epith Cells 2+ Urine Bacteria 2+ Urine Mucus 1+ Urine Opiates Screen Urine Fentanyl Screen Ur Barbiturates Screen Ur Phencyclidine Scrn Ur Amphetamines Screen U Benzodiazepines Scrn Urine Cocaine Screen U Marijuana (THC) Screen COVID-19 (MILLICENT) COVID-19 Clin Com Imaging Radiologist's Impressions: Impressions Abdomen/Pelvis CT 07/07/21 12:22 IMPRESSION: 1. No inflammatory changes in bowel or mesentery. Normal appendix. 2. No biliary ductal dilatation, hydronephrosis, or perinephric stranding. 3. Small right adnexal cyst 2.5 cm, decreased from ultrasound 05/05/2021. Mild pelvic ascites, stable. Assessment and Plan (1) UTI (urinary tract infection): Qualifiers: Hematuria presence: without hematuria Urinary tract infection type: acute cystitis Qualified Code(s): N30.00 - Acute cystitis without hematuria Status: Acute 41yo F with frequent UTI/pyelonephritis, frequent THC use, presenting with intractable N/V/suprapubic pain, found to have UTI with lactic acidosis but not septic; also Utox positive for cocaine and fentanyl, though denies use of the latter. # UTI - admit to M/S, IV levofloxacin, follow UCx # N/V/abd pain - suspect UTI but could be part of a withdrawal syndrome or cyclic vomiting syndrome from THC use; treat with IV fluids, prn lorazepam, prn ketorolac, prn ondanstreon/metoclopramide # cocaine abuse # opioid abuse - CARE Team + addiction medicine consults, clonidine + lorazepam prn anxiety/withdrawal # VTE ppx - LMWH, SCDs Quality Stroke Does the patient have a stroke diagnosis?: No VTE Prior VTE?: No VTE Risk Level:: Medical - moderate - high VTE Device Contraindication: N/A - Device Ordered VTE Drug Contraindication: N/A - Med Ordered
[2021-07-07 17:00] LABS: C Reactive Protein 0.31 mg/dL (< or = 0.50)
[2021-07-07] MEDS: ondansetron HCL 4 MG/2 ML VIAL IVPUSH (18:08)
[2021-07-07] MEDS: Ketorolac Tromethamine 15 MG/ML VIAL IVPUSH ×2 (18:08→23:05)
[2021-07-07] MEDS: Enoxaparin Sodium 40 MG/0.4 ML SYRINGE SUBCUT (18:18)
[2021-07-07] MEDS: Phenazopyridine HCL 100 MG TABLET PO (18:18)
[2021-07-07] MEDS: 0.9 % Sodium Chloride 1,000 ML 100 ML IVCONT (18:18)
[2021-07-07] MEDS: levoFLOXacin/D5W 500 MG/100 ML PIGGYBACK 100 MG IV (18:19)
--- NOTE | 2021-07-07 18:59 | PC.NURSE ---
pt alert, respirations easy, n/l. Pt awaiting for transfer to floor.
[2021-07-07 19:40] VITALS: BP 121/78; PULSE 99; RESP 19; TEMP 37.2; O2SAT 100
[2021-07-07 23:35] VITALS: BP 119/72; PULSE 85; RESP 18; TEMP 37.1; O2SAT 100
[2021-07-07 23:42] VITALS: BMI 26.9
[2021-07-08] MEDS: 0.9 % Sodium Chloride Flush 3 ML SYRINGE IVFLUSH (00:42)
[2021-07-08 03:47] VITALS: BP 122/68; PULSE 81; RESP 18; TEMP 36.6; O2SAT 100
[2021-07-08] MEDS: 0.9 % Sodium Chloride 1,000 ML 100 ML IVCONT (05:31)
[2021-07-08] MEDS: Ketorolac Tromethamine 15 MG/ML VIAL IVPUSH (05:32)
[2021-07-08 05:40] LABS: Hematocrit 29.8 % (37-47); Mean Corpuscular HGB Conc 30.2 g/dl (31.0-35.0); Mean Corpuscular Hemoglobin 23.4 pg (27.0-33.0); Mean Corpuscular Volume 77.6 fL (80-98); Mean Platelet Volume 12.3 fL (9.4-12.3); Platelet Count 203 X10*3/uL (160-400); Red Blood Count 3.84 X10*6/uL (4.20-5.50); Red Cell Distribution Width 17.2 % (11.0-16.0); White Blood Count 6.7 X10*3/uL (4.8-10.8)
[2021-07-08 05:41] LABS: PLT ABN DIST 1
[2021-07-08 06:12] LABS: Anion Gap 12 (12-20); Blood Urea Nitrogen 11 mg/dL (9-16); Calcium 8.7 mg/dL (8.4-10.2); Carbon Dioxide 22 mmol/L (22-29); Chloride 107 mmol/L (96-108); Estimated Glomerular Filt Rate > 60; Glucose Random 84 mg/dL (60-115); Potassium 3.5 mmol/L (3.3-5.1); Sodium 137 mmol/L (135-145)
[2021-07-08 07:40] VITALS: BP 128/72; PULSE 87; RESP 18; TEMP 36.9; O2SAT 100
[2021-07-08 08:48] LABS: Iron 83 mcg/dL (30-160); Percent Iron Saturation 22 % (15-50); Total Iron Binding Capacity 377 mcg/dL (228-428); Unsaturated Iron Binding 294 ug/dL
[2021-07-08 09:08] LABS: Ferritin 11 ng/mL (10-250)
[2021-07-08] MEDS: Phenazopyridine HCL 100 MG TABLET PO (09:46)
[2021-07-08] MEDS: Ascorbic Acid 500 MG TABLET 1000 MG PO (09:46)
--- NOTE | 2021-07-08 10:27 | MHC.RECOVSUP ---
Recovery Support note: Patient is a 41 year old [place] Islander speaking female who presented to [facility] due to nausea, vomiting and abdominal pain and was medically admitted. Patient tested positive for cocaine, opiates, fentanyl and cannabis. This life underwriter met with patient to discuss her substance use and recovery supports. Patient reports that she has a lot going on in her life and that she recently started a second job. Patient reports she was exhausted and confided in a trusted friend. Per patient, this friend suggested that she try using cocaine as a way to feel more energized. Patient reports she tried the substance he had once and didn't try it again and had no intention of trying it again. Patient was informed by hospital staff that she tested positive for opiates and fentanyl in addition to cocaine. Patient reports she is extremely upset and angry that the substance she tried had opiates and fentanyl in it. Patient acknowledges the danger and risk of overdose when using these substances and reports she never would have accepted it had she known. Patient reports this friend broke her trust and she is very hurt by the whole situation. Patient continues to report that she will never try any drug that isn't from a pharmacy. Patient reports using cannabis daily however dose not find this harmful or problematic. Discussed testing strips with patient as a way to identify what substances are present and patient acknowledged however continues to report no plans to use any substance again. Discussed outpatient therapy with patient and provided patient with information on counseling clinics in the area. Patient reports she was previously getting therapy and psychiatry however was unable to continue due to transportation barriers. Encouraged patient to reach out to that clinic to restart services and to determine whether they are doing virtual visits. Patient acknowledged and reports no questions at this time.
[2021-07-08] MEDS: Ferrous Sulfate 324 MG TABLET.DR PO (10:29)
--- NOTE | 2021-07-08 10:53 | PM.DS ---
DS: Providers Provider Date of Service: 07/08/21 Date of admission: 07/07/21 16:51 Date of discharge: 07/08/21 Primary care physician: Navi Real MD Consults: 07/07/21 16:24 Addiction Medicine Routine Consulting Provider: Chandni Dawn Reason for consultation: cocaine, fentanyl 07/07/21 16:40 Consult to Care Team Routine Comment: Reason for consultation: cocaine fentanly DS: Diagnosis Discharge Diagnosis (1) UTI (urinary tract infection): Status: Acute (2) Microcytic anemia: Status: Acute (3) Cocaine abuse: Status: Acute (4) Acidosis, lactic: Status: Acute (5) Tobacco abuse: Status: Acute DS: Medications Discharge Medications Home Medications: Previous Rx's Medication Instructions Recorded ascorbic acid (vitamin C) 1,000 mg 1 g PO DAILY 90 Days #90 tab NS 05/11/21 tablet ferrous sulfate 324 mg (65 mg 324 mg PO DAILY #30 tab 07/08/21 iron) tablet,delayed release ibuprofen 800 mg tablet 1 tab PO Q8H PRN #60 tab 07/08/21 levofloxacin 500 mg tablet 500 mg PO DAILY #4 tab 07/08/21 nicotine (polacrilex) 2 mg gum 2 mg BUCCAL Q1H #110 ea 07/08/21 phenazopyridine 100 mg tablet 100 mg PO TIDWM #6 tab 07/08/21 DS: Summary Hospital Course Hospital Course: from my admission H+P, 07/07/21: 41yo F with hx cyclical vomiting, frequent UTI/pyelonephritis presenting with 2d of worsening dysuria, urinary frequency/urgency, and suprapubic pain with L flank pain.? No hematuria.? No fever but this am she woke up with sweats and chills.? She has been nauseous and vomiting [non-bloody, non-bilious] all day.? In the last year, she has had UTIs with Citrobacter, Enterococcus faecalis including VRE, and Pseudomonas aeurigonsa.? Uses marijuana frequently.? States she inhaled what she thought was cocaine 2d ago supplied by her nephew to relieve her stress, but this was a 1-time instance.? Denies any known opioid abuse.? No EtOH or tobacco.? 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 In the ED, she was noted to have pyuria and bacteruria; lactic acidosis; and Utox positive for THC, opiates, fentanyl, and cocaine.? She was given IV fluids and a dose of IV cefepime, along with lorazepam, compazine, metoclopramide, diphenhydramine, and morphine. The patient was admitted to the hospitalist service and treated with IV fluids and levofloxacin. Lactic acidosis resolved with fluid hydration. She denied taking any opioids and it is possible that the cocaine she used was laced with fentanyl. Her symptoms improved and she was able to tolerate regular diet. She was started on iron for microcytic anemia. She met with the Recovery Team and was counseled to avoid all substances of abuse, which she is only too glad to do after her current experience. She was discharged home and will follow up with her primary care doctor within 1 week. Time Spent with Patient Time attestation: Total time spent providing and/or coordinating discharge services: Discharge coordination time: Greater than 30 minutes Quality: Stroke Does the patient have a stroke diagnosis?: No Physical Exam Vital Signs: Vital Signs: Last Vital Signs Temp 98.4 F 07/08/21 07:40 Pulse 87 07/08/21 07:40 Resp 18 07/08/21 07:40 BP 128/72 07/08/21 07:40 Pulse Ox 100 07/08/21 07:40 Body Mass Index 26.9 Gen: in no acute distress HEENT: sclera anicteric, moist mucus membranes Neck: supple Lungs: clear to auscultation bilaterally Heart: regular rate and rhythm, no murmurs Abd: soft, non-tender, non-distended Ext: no edema Skin: warm/well-perfused Neuro: alert and oriented x3, no focal findings Psych: appropriate affect DS: Data Data Completed and Pending Completed studies during hospitalization [Text1]: Laboratory Results WBC 6.7 X10*3/uL (4.8-10.8) 07/08/21 05:03 RBC 3.84 X10*6/uL (4.20-5.50) L 07/08/21 05:03 Hgb 9.0 g/dl (12.0-16.0) L 07/08/21 05:03 Hct 29.8 % (37-47) L 07/08/21 05:03 MCV 77.6 fL (80-98) L 07/08/21 05:03 MCH 23.4 pg (27.0-33.0) L 07/08/21 05:03 MCHC 30.2 g/dl (31.0-35.0) L 07/08/21 05:03 RDW 17.2 % (11.0-16.0) H 07/08/21 05:03 Plt Count 203 X10*3/uL (160-400) 07/08/21 05:03 MPV 12.3 fL (9.4-12.3) 07/08/21 05:03 Immature Gran % (Auto) Cancelled 07/07/21 09:23 Neut % (Auto) Cancelled 07/07/21 09:23 Lymph % (Auto) Cancelled 07/07/21 09:23 [place] % (Auto) Cancelled 07/07/21 09:23 Eos % (Auto) Cancelled 07/07/21 09:23 Baso % (Auto) Cancelled 07/07/21 09:23 Lymph # (Auto) Cancelled 07/07/21 09:23 [place] # (Auto) Cancelled 07/07/21 09:23 Eos # (Auto) Cancelled 07/07/21 09:23 Baso # (Auto) Cancelled 07/07/21 09:23 Abs Immat Gran (auto) Cancelled 07/07/21 09:23 Absolute Neuts (auto) Cancelled 07/07/21 09:23 Absolute Nucleated RBC 0.000 X10*3/uL (0.0-0.012) 07/08/21 05:03 Nucleated RBC % (auto) 0.0 /100WBC (0.0-0.2) 07/08/21 05:03 Neutrophils % (Manual) 71 % (45-73) 07/07/21 09:23 Band Neutrophils % 1 % (3-5) L 07/07/21 09:23 Lymphocytes % (Manual) 23 % (20-40) 07/07/21 09:23 Monocytes % (Manual) 5 % (2-11) 07/07/21 09:23 Abs Neuts (Manual) 5.3 X10*3/uL (2.2-7.9) 07/07/21 09:23 Lymphocytes # (Manual) 1.7 X10*3/uL (0.6-4.8) 07/07/21 09:23 Monocytes # (Manual) 0.4 X10*3/uL (0.0-1.2) 07/07/21 09:23 Platelet Estimate NORMAL (NORMAL) 07/07/21 09:23 Plt Morphology Comment NORMAL 07/07/21 09:23 RBC Morphology NOTED 07/07/21 09:23 Hypochromasia 1+ (5-14) /OIF 07/07/21 09:23 Sodium 137 mmol/L (135-145) 07/08/21 05:03 Potassium 3.5 mmol/L (3.3-5.1) 07/08/21 05:03 Chloride 107 mmol/L (96-108) 07/08/21 05:03 Carbon Dioxide 22 mmol/L (22-29) 07/08/21 05:03 Anion Gap 12 (12-20) 07/08/21 05:03 BUN 11 mg/dL (9-16) 07/08/21 05:03 Creatinine 0.73 mg/dL (0.5-1.4) 07/08/21 05:03 Estim Creat Clear Calc 96.0 07/08/21 05:03 Estimated GFR > 60 07/08/21 05:03 Random Glucose 84 mg/dL (60-115) 07/08/21 05:03 Lactic Acid 2.6 mmol/L (0.5-2.0) H* 07/07/21 09:23 Lactic Acid Fup @ 2Hr 1.8 mmol/L (0.5-2.0) 07/07/21 12:47 Calcium 8.7 mg/dL (8.4-10.2) 07/08/21 05:03 Magnesium 2.2 mg/dL (1.6-2.6) 07/07/21 10:19 Iron 83 mcg/dL (30-160) 07/08/21 05:03 TIBC 377 mcg/dL (228-428) 07/08/21 05:03 % Saturation 22 % (15-50) 07/08/21 05:03 Unsat Iron Binding 294 ug/dL 07/08/21 05:03 Ferritin 11 ng/mL (10-250) 07/08/21 05:03 Total Bilirubin 0.5 mg/dL (0.0-1.0) 07/07/21 10:19 Direct Bilirubin 0.2 mg/dL (0.0-0.5) 07/07/21 10:19 AST 18 U/L (5-31) 07/07/21 10:19 ALT 14 U/L (0-31) 07/07/21 10:19 Alkaline Phosphatase 58 U/L (39-117) 07/07/21 10:19 C-Reactive Protein 0.31 mg/dL (< or = 0.50) 07/07/21 10:19 Total Protein 8.0 g/dL (6.5-8.0) 07/07/21 10:19 Albumin 4.3 g/dL (3.5-5.0) 07/07/21 10:19 Lipase 67 U/L (8-78) 07/07/21 10:19 Urine Color YELLOW 07/07/21 10:21 Urine Appearance HAZY 07/07/21 10:21 Urine pH 7.5 (5.0-8.0) 07/07/21 10:21 Ur Specific [place] 1.020 (1.005-1.025) 07/07/21 10:21 Urine Protein TRACE MG/DL (NEG-TRACE) 07/07/21 10:21 Urine Glucose (UA) NEG MG/DL (NEG) 07/07/21 10:21 Urine Ketones NEG MG/DL (NEG) 07/07/21 10:21 Urine Blood NEG (NEG) 07/07/21 10:21 Urine Nitrite NEG (NEG) 07/07/21 10:21 Ur Leukocyte Esterase 1+ (NEG) H 07/07/21 10:21 Urine RBC 0 /HPF (0) 07/07/21 10:21 Urine WBC 5-9 /HPF (0-4) H 07/07/21 10:21 Ur Squamous Epith Cells 2+ /LPF 07/07/21 10:21 Urine Bacteria 2+ /LPF 07/07/21 10:21 Urine Mucus 1+ /LPF 07/07/21 10:21 Urine Opiates Screen POSITIVE (Not Detect) H 07/07/21 10:21 Urine Fentanyl Screen POSITIVE (Not Detect) H 07/07/21 10:21 Ur Barbiturates Screen Not Detected (Not Detect) 07/07/21 10:21 Ur Phencyclidine Scrn Not Detected (Not Detect) 07/07/21 10:21 Ur Amphetamines Screen Not Detected (Not Detect) 07/07/21 10:21 U Benzodiazepines Scrn Not Detected (Not Detect) 07/07/21 10:21 Urine Cocaine Screen POSITIVE (Not Detect) H 07/07/21 10:21 U Marijuana (THC) Screen POSITIVE (Not Detect) H 07/07/21 10:21 COVID-19 (MILLICENT) Negative (Negative) 07/07/21 09:23 COVID-19 Clin Com See Note 07/07/21 09:23 Impressions Abdomen/Pelvis CT 07/07/21 12:22 IMPRESSION: 1. No inflammatory changes in bowel or mesentery. Normal appendix. 2. No biliary ductal dilatation, hydronephrosis, or perinephric stranding. 3. Small right adnexal cyst 2.5 cm, decreased from ultrasound 05/05/2021. Mild pelvic ascites, stable. Pending studies at discharge: Urine culture from 07/07/21 Hepatitis B/C and HIV serologies from 07/08/21 Labs on day of discharge: Laboratory Results - last 24 hr 07/07/21 07/07/21 07/07/21 10:19 10:19 10:21 WBC RBC Hgb Hct MCV MCH MCHC RDW Plt Count MPV Absolute Nucleated RBC Nucleated RBC % (auto) Sodium 139 Potassium 4.1 Chloride 110 H Carbon Dioxide 18 L Anion Gap 15 BUN 10 Creatinine 0.82 Estim Creat Clear Calc 85.1 Estimated GFR > 60 Random Glucose 108 Lactic Acid Fup @ 2Hr Calcium 9.0 D Magnesium 2.2 Iron TIBC % Saturation Unsat Iron Binding Ferritin Total Bilirubin 0.5 Direct Bilirubin 0.2 AST 18 ALT 14 Alkaline Phosphatase 58 C-Reactive Protein 0.31 Total Protein 8.0 Albumin 4.3 Lipase 67 Urine RBC Urine WBC Ur Squamous Epith Cells Urine Bacteria Urine Mucus Urine Opiates Screen POSITIVE H Urine Fentanyl Screen POSITIVE H Ur Barbiturates Screen Not Detected Ur Phencyclidine Scrn Not Detected Ur Amphetamines Screen Not Detected U Benzodiazepines Scrn Not Detected Urine Cocaine Screen POSITIVE H U Marijuana (THC) Screen POSITIVE H 07/07/21 07/07/21 07/08/21 10:21 12:47 05:03 WBC 6.7 RBC 3.84 L Hgb 9.0 L Hct 29.8 L MCV 77.6 L MCH 23.4 L MCHC 30.2 L RDW 17.2 H Plt Count 203 MPV 12.3 Absolute Nucleated RBC 0.000 Nucleated RBC % (auto) 0.0 Sodium Potassium Chloride Carbon Dioxide Anion Gap BUN Creatinine Estim Creat Clear Calc Estimated GFR Random Glucose Lactic Acid Fup @ 2Hr 1.8 Calcium Magnesium Iron TIBC % Saturation Unsat Iron Binding Ferritin Total Bilirubin Direct Bilirubin AST ALT Alkaline Phosphatase C-Reactive Protein Total Protein Albumin Lipase Urine RBC 0 Urine WBC 5-9 H Ur Squamous Epith Cells 2+ Urine Bacteria 2+ Urine Mucus 1+ Urine Opiates Screen Urine Fentanyl Screen Ur Barbiturates Screen Ur Phencyclidine Scrn Ur Amphetamines Screen U Benzodiazepines Scrn Urine Cocaine Screen U Marijuana (THC) Screen 07/08/21 05:03 WBC RBC Hgb Hct MCV MCH MCHC RDW Plt Count MPV Absolute Nucleated RBC Nucleated RBC % (auto) Sodium 137 Potassium 3.5 Chloride 107 Carbon Dioxide 22 Anion Gap 12 BUN 11 Creatinine 0.73 Estim Creat Clear Calc 96.0 Estimated GFR > 60 Random Glucose 84 Lactic Acid Fup @ 2Hr Calcium 8.7 Magnesium Iron 83 TIBC 377 % Saturation 22 Unsat Iron Binding 294 Ferritin 11 Total Bilirubin Direct Bilirubin AST ALT Alkaline Phosphatase C-Reactive Protein Total Protein Albumin Lipase Urine RBC Urine WBC Ur Squamous Epith Cells Urine Bacteria Urine Mucus Urine Opiates Screen Urine Fentanyl Screen Ur Barbiturates Screen Ur Phencyclidine Scrn Ur Amphetamines Screen U Benzodiazepines Scrn Urine Cocaine Screen U Marijuana (THC) Screen Discharge Plan Discharge Patient Disposition: Home, Self-Care Discharge Diagnosis: UTI, anemia, cocaine abuse Referrals: Navi Real MD [Primary Care Provider] - 1 Week Discharge Medications: New phenazopyridine 100 mg Tablet 100 mg PO TIDWM Qty: 6 RF: 0 ferrous sulfate 324 mg (65 mg iron) Tablet,Delayed Release (Dr/Ec) 324 mg PO DAILY Qty: 30 RF: 0 levofloxacin 500 mg tablet 500 mg PO DAILY Qty: 4 RF: 0 nicotine (polacrilex) 2 mg gum 2 mg buccal Q1H Qty: 110 RF: 0 Continued ascorbic acid (vitamin C) 1,000 mg tablet 1 g PO DAILY 90 Days Qty: 90 RF: 0 ibuprofen 800 mg tablet 1 tab PO Q8H PRN (Reason: pain) Qty: 60 RF: 1 Discontinued methenamine hippurate 1 gram tablet 1 tab PO DAILY RF: 0 Discharge Orders: Discharge Order (Routine); Ordered 07/08/21 Ordered By: Breezy Andersen Diet: advance to usual diet Activity on Discharge: As tolerated Stand Alone Forms: Patient Portal Discharge page Care Plan Goals: relief of UTI improvement in anemia avoidance of substances of abuse Health Concerns: UTI anemia cocaine abuse tobacco abuse Plan of Treatment: levofloxacin 500 mg daily x 4 days; phenazopyridine + ibuprofen as needed for pain; call [facility] on 07/09/21 for results of urine culture [[phone] [phone]] ferrous sulfate 324 mg daily avoid cocaine and other street drugs stop smoking; usine nicotine gum to quit see your primary care doctor in 1 week Assessment: as above Patient Instructions: Urinary Tract Infection in Women (DC), Cocaine Abuse (GEN)
[2021-07-10 07:49] LABS: HBS Num1 0.27 mIU/mL (0-7.99); HBc Num1 0.31 S/CO (0.00-0.79); HIV AB/AG Nonreactive (Nonreactive); HIV Num 1 0.07 S/CO (0.00-0.99); Hepatitis B Core Antibody Nonreactive (Nonreactive); Hepatitis B Surface Antigen Negative (Negative); ~HepC Num1 0.16 S/CO (0.00-0.79); ~Hepatitis B Surface Antibody NONREACTIVE (Nonreactive); ~Hepatitis C Antibody Nonreactive (Nonreactive)
== END 2021-07-08 11:57 | disposition home or self-care (01) | DRG 463 ==
LOC: HO.ED 12:55 → HO.EDOVER 17:23 → HO.IMC 17:46
PROVIDERS: Admitting Provider Family Medicine; Emergency Provider Emergency Medicine; PCP Family Medicine; Visit Provider Family Medicine
DX: N39.0 Urinary tract infection, site not specified (principal); E87.2 Acidosis; F17.210 Nicotine dependence, cigarettes, uncomplicated; F14.10 Cocaine abuse, uncomplicated; Z20.822 Contact with and (suspected) exposure to COVID-19; D50.9 Iron deficiency anemia, unspecified; Z71.6 Tobacco abuse counseling; Z87.440 Personal history of urinary (tract) infections; Z88.0 Allergy status to penicillin; Z88.5 Allergy status to narcotic agent; Z79.899 Other long term (current) drug therapy
CPT/HCPCS: 36415; 74176; 74177; 76830; 76856; 80048; 80076; 80307; 81001; 81025; 82728; 82947; 83540; 83605; 83690; 83735; 85007; 85025; 85027; 86140; 86704; 86706; 86780; 86803; 87040; 87086; 87147; 87205; 87340; 87389; 87480; 87491; 87510; 87591; 87635; 87660; 93005; 96361; 96365; 96374; 96375; 96376; 99285; J0692; J0696; J1200; J1650; J1885; J1956; J2060; J2270; J2405; J2765; Q9967

== ENCOUNTER 2021-07-08 15:02 | Inpatient (IN) | payer OTHER, SELFPAY ==
[2021-07-08] VITALS (7 sets, daily range): BP systolic 114–180; BP diastolic 65–100; PULSE 80–96; RESP 16–20; TEMP 36.3–37.7; O2SAT 98–100; BMI 26.6; BMI 25.7
--- NOTE | ~2021-07-08 | CT_ITS ---
EXAMINATION: CT ABDOMEN AND PELVIS WITH CONTRAST CLINICAL INFORMATION: Flank pain. Rule out pyelonephritis COMPARISON: 07/07/2021 TECHNIQUE: Multidetector volumetric images were obtained from the superior aspect of the liver through the pubic symphysis following administration 85 mL of Omnipaque 350 intravenous contrast. Sagittal and coronal reformatted images were obtained on the technologist's workstation. Oral contrast: No This CT examination was performed using dose optimization techniques as appropriate, variously including the following: *Automated exposure control *Adjustment of mA and/or kV according to patient size (this includes techniques or standardized protocols for targeted exams where dose is matched to indication/reason for exam; i.e. extremities or head) *Use of iterative reconstruction technique FINDINGS: LUNG BASES: The visualized lung bases are unremarkable. LIVER, GALLBLADDER, AND BILIARY TREE: The liver is normal in size, shape, and attenuation. No focal hepatic lesion or biliary ductal dilatation is present. The gallbladder is unremarkable with no evidence of radiopaque gallstones, gallbladder wall thickening, or obvious pericholecystic inflammatory changes. PANCREAS: Unremarkable. SPLEEN: Unremarkable. ADRENAL GLANDS: Unremarkable. KIDNEYS AND URETERS: The kidneys are normal in size, shape, and attenuation. No hydronephrosis, hydroureter, or calculi seen. No perinephric stranding. BLADDER: Unremarkable. GASTROINTESTINAL TRACT: The small and large bowel are unremarkable. The appendix is unremarkable. ABDOMINAL WALL: No significant hernia is appreciated. LYMPH NODES: Normal. VASCULAR: Unremarkable. PELVIC VISCERA: Normal appearance of the ovaries. Small physiologic volume of simple pelvic free fluid. Normal appearing anteverted uterus. Cyst in the left inferior vagina. OSSEOUS STRUCTURES: Unremarkable. CT/CT abdomen pelvis w con IMPRESSION: Symmetric bilateral renal enhancement. No CT evidence of pyelonephritis. No hydronephrosis or hydroureter.
--- NOTE | ~2021-07-08 | US_ITS ---
EXAM: Pelvic Ultrasound CLINICAL INDICATION: Vaginal discharge COMPARISON: CT abdomen pelvis July 08, 2021 and pelvic ultrasound May 05, 2021 TECHNIQUE: The pelvis was evaluated using transabdominal and transvaginal imaging. FINDINGS: The uterus measures 8.2 x 4.7 x 4.8 cm in longitudinal by AP by transverse dimension. The endometrial endometrium measures up to 1.8 cm in thickness. The cervix measures approximately 3.3 cm in length. Nabothian cysts are appreciated. There is an approximately 1.9 cm cyst of the vagina. The left ovary measures approximately 4.4 x 2.1 x 2.5 cm and is normal. The right ovary measures approximately 3.3 x 2.1 x 3.3 cm and is also normal. Adjacent to the right ovary there is an approximately 3 cm cyst which contains a single thin septation. Mild to moderate amount of free pelvic fluid. US/US pelvic complete IMPRESSION: 1. Endometrium measures 1.8 cm in thickness. Correlation with menstrual cycle recommended. 2. Nabothian cysts and a 1.9 cm suspected Papi's duct cyst of the vagina noted. 3. 3 cm minimally complex right paraovarian cyst present. 4. Mild to moderate amount of free pelvic fluid.
--- NOTE | ~2021-07-08 | US_ITS ---
EXAM: Pelvic Ultrasound CLINICAL INDICATION: Vaginal discharge COMPARISON: CT abdomen pelvis July 08, 2021 and pelvic ultrasound May 05, 2021 TECHNIQUE: The pelvis was evaluated using transabdominal and transvaginal imaging. FINDINGS: The uterus measures 8.2 x 4.7 x 4.8 cm in longitudinal by AP by transverse dimension. The endometrial endometrium measures up to 1.8 cm in thickness. The cervix measures approximately 3.3 cm in length. Nabothian cysts are appreciated. There is an approximately 1.9 cm cyst of the vagina. The left ovary measures approximately 4.4 x 2.1 x 2.5 cm and is normal. The right ovary measures approximately 3.3 x 2.1 x 3.3 cm and is also normal. Adjacent to the right ovary there is an approximately 3 cm cyst which contains a single thin septation. Mild to moderate amount of free pelvic fluid. US/US transvaginal IMPRESSION: 1. Endometrium measures 1.8 cm in thickness. Correlation with menstrual cycle recommended. 2. Nabothian cysts and a 1.9 cm suspected Papi's duct cyst of the vagina noted. 3. 3 cm minimally complex right paraovarian cyst present. 4. Mild to moderate amount of free pelvic fluid.
[2021-07-08 15:17] LABS: Glucose, Whole Blood 108 mg/dL (60-115)
--- NOTE | 2021-07-08 15:24 | ED_ITS ---
HPI - Nausea/Vomiting/Diarrhea General Chief complaint: Nausea/Vomiting/Diarrhea Stated complaint: abd pain/N/V s/p UTI Time Seen by Provider: 07/08/21 15:21 Source: EMS and pay clerk Mode of arrival: EMS Limitations: language barrier History of Present Illness HPI Narrative: 41 yo female with past medical history of cyclical vomiting, Hidradenitis suppurativa, Hypothyroidism, Marijuana abuse/Opioid abuse, Pelvic inflammatory disease, Pyelonephritis, UTI (urinary tract infection) here with complaints of abdominal pain/low back pain, vomiting Of note, patient admitted here 07/07 for UTI, lactic acidosis and persistent vomiting/abdominal pain. Discharged this AM on course of levaquin. Returns for persistent abdominal pain, low back pain and vomiting. No fevers, chills or urinary symptoms. Unable to tolerate PO or antibiotics at home. Associated nausea: Yes Related Data Previous Rx's Medication Instructions Recorded ascorbic acid (vitamin C) 1,000 mg 1 g PO DAILY 90 Days #90 tab NS 05/11/21 tablet ferrous sulfate 324 mg (65 mg 324 mg PO DAILY #30 tab 07/08/21 iron) tablet,delayed release ibuprofen 800 mg tablet 1 tab PO Q8H PRN #60 tab 07/08/21 levofloxacin 500 mg tablet 500 mg PO DAILY #4 tab 07/08/21 nicotine (polacrilex) 2 mg gum 2 mg BUCCAL Q1H #110 ea 07/08/21 phenazopyridine 100 mg tablet 100 mg PO TIDWM #6 tab 07/08/21 Allergies Allergy/AdvReac Type Severity Reaction Status Date / Time amoxicillin [Amoxicillin] Allergy Intermediate HIVES Verified 07/08/21 15:11 tramadol AdvReac Intermediate SOB Verified 07/08/21 15:11 Review of Systems Review of Systems: Yes all other systems are reviewed and are negative Constitutional: Constitutional: Reports no additional constitutional complaints, Denies body ache(s), Denies chills, Denies fever(s), Denies headache(s) and Denies weakness Eyes: Eyes: Reports no additional eye complaints and Denies change in vision ENT: Reports system reviewed and no additional complaints, except as do cumented, Denies dizziness, Denies headache(s), Denies nasal congestion, Denies nasal discharge and Denies neck pain Cardiovascular: Cardiovascular: Reports no additional cardiovascular complaints, Denies chest pain, Denies leg edema and Denies dyspnea Respiratory: Respiratory: Reports no additional respiratory complaints, Denies cough and Denies dyspnea Gastrointestinal: Gastrointestinal: Reports no additional gastrointestinal complaints, Reports abdominal pain, Denies diarrhea, Reports nausea and Reports vomiting Genitourinary: Genitourinary: Reports no additional female genitourinary complaints and Denies urinary incontinence Musculoskeletal: Musculoskeletal: Reports no additional musculoskeletal complaints, Reports back pain, Denies arthralgias, Denies joint swelling, Denies neck pain, Denies numbness and Denies tingling Integumentary/Breasts: Skin/Breast: Reports system reviewed and no additional complaints, except as docu and Denies rash Neurologic: Reports system reviewed and no additional complaints, except as documented, Denies Abnormal speech present, Denies dizziness, Denies headache(s), Denies numbness, Denies tingling and Denies weakness PMFSH Past Medical History Attestation statement: The following information was validated with the patient. Source: old records reviewed and nursing notes reviewed Medical History Abscess Cyclical vomiting Hidradenitis suppurativa Hypokalemia Hypothyroidism Marijuana abuse Opioid abuse Pelvic inflammatory disease Pyelonephritis UTI (urinary tract infection) Surgical History Tubal ligation status Family History Family History Mother CVD (cardiovascular disease) HTN (hypertension) Maternal Grandmother High cholesterol HTN (hypertension) Maternal Grandfather Prostate cancer Other Heart disease Social History Social History Household Members: Children Housing: House Do you presently have visiting nurse or other home services: No Alcohol intake: never Patient Tobacco Use Status: Current everyday Tobacco user Cigarettes Per Day: 3 Years Smoked: 20 Second Hand Smoke Exposure: Yes Use of substances other than those prescribed or required for medical reasons: Yes Substance Use Type: Marijuana Advance Directives: Yes Advance Directives on File: Yes Advance Directives Date on File: 01/02/21 Patient : No service: No Current occupational status: employed Physical Exam Vital Signs: Vital Signs: Last Vital Signs Temp 99.8 F 07/08/21 17:47 Pulse 94 07/08/21 17:47 Resp 20 07/08/21 17:47 BP 144/90 H 07/08/21 17:47 Pulse Ox 100 07/08/21 17:47 Body Mass Index 26.6 Const: Other: shaking back and forth in pain General: anxious Orientation/consciousness: patient oriented x3 Limitations: no limitations HENMT: Head: Yes normal to inspection Ears: hearing grossly normal bilaterally General nose exam: Normal external nose present Face and sin us: Yes normal facial exam Mouth: Normal oral and palatal mucosa present Throat: Yes posterior oropharynx normal Eyes: General: appearance normal, both eyes and all related structures Pupils: Equal, round and reactive pupils present Neck: Neck: Yes normal visual inspection Chest: Chest palpation & inspection: normal inspection of the chest Resp: Effort & Inspection: normal respiratory effort Auscultation: clear to auscultation bilaterally Cardio: Rate: regular rate Rhythm: regular rhythm Peripheral pulses: Peripheral pulses 2+ throughout GI: Inspection: Yes normal to inspection Palpation (GI): Soft to palpation and Tenderness to palpation present (GI) (mod diffuse tenderness ) Auscultation: normal bowel sounds : General: Yes no CVA tenderness Back/Spine/Pelvis: Other: mod lower lumbar soft tissue tenderness Back: no CVA tenderness Thoracic/Lumbar Spine: thoracic and lumbar spine normal to inspection Skin: General skin exam: no rashes or lesions noted Neuro: General: patient oriented x3, no focal motor deficits and normal sensation to monofilament Cranial nerves: Yes Equal, round and reactive pupils present Cognition (Neuro): normal cognition Speech: No Abnormal speech present Gait exam (Neuro): Normal gait present Motor exam (neuro): 5/5 motor strength present throughout Extrem: General: Yes normal to inspection, Yes no pedal edema and Yes no calf tenderness Course Course Course Narrative: 41 yo female here with complaints of generalized abdominal pa in, vomiting, inability to tolerate PO after being discharged from [facility] [place] [facility] this AM after admission for same in addition to be treated for a UTI. On exam the patient has moderate diffuse tenderness, is quite anxious, rocking back and forth in her room. Will check labs, UA. at this time infection is hebert spect. Antibiotics ordered. 1705-Continued vomiting. Will give reglan and benadryl. 1715-reviewed labs with the exception of a mildly elevated lactic acid which is likely secondary to dehydration from vomiting. 1800-Continued vomiting requiring 3rd round of antiemetic. Informed medicine patient will require admission for intractable vomiting (Dr Mckinney). MDM - Nausea/Vomiting/Diarrhea Medical Records Attestation: I reviewed the patient's medical records. Lab Data Attestation: I reviewed the patient's lab results. Result diagrams: 07/08/21 15:41 07/08/21 15:41 Labs: Lab Results 07/08/21 07/08/21 07/08/21 Range/Units 15:12 15:41 15:41 WBC 8.5 (4.8-10.8) X10*3/uL RBC 4.28 (4.20-5.50) X10*6/uL Hgb 10.0 L (12.0-16.0) g/dl Hct 32.8 L (37-47) % MCV 76.6 L (80-98) fL MCH 23.4 L (27.0-33.0) pg MCHC 30.5 L (31.0-35.0) g/dl RDW 17.2 H (11.0-16.0) % Plt Count 259 D (160-400) X10*3/uL MPV 11.9 (9.4-12.3) fL Immature Gran % (Auto) Cancelled Neut % (Auto) Cancelled Lymph % (Auto) Cancelled [place] % (Auto) Cancelled Eos % (Auto) Cancelled Baso % (Auto) Cancelled Lymph # (Auto) Cancelled [place] # (Auto) Cancelled Eos # (Auto) Cancelled Baso # (Auto) Cancelled Abs Immat Gran (auto) Cancelled Absolute Neuts (auto) Cancelled Absolute Nucleated RBC 0.000 (0.0-0.012) X10*3/uL Nucleated RBC % (auto) 0.0 (0.0-0.2) /100WBC Neutrophils % (Manual) 93 H (45-73) % Lymphocytes % (Manual) 5 L (20-40) % Monocytes % (Manual) 2 (2-11) % Abs Neuts (Manual) 7.9 (2.2-7.9) X10*3/uL Lymphocytes # (Manual) 0.4 L (0.6-4.8) X10*3/uL Monocytes # (Manual) 0.2 (0.0-1.2) X10*3/uL Platelet Estimate NORMAL (NORMAL) Large Platelets PRESENT Plt Morphology Comment NOTED RBC Morphology NORMAL Sodium 137 (135-145) mmol/L Potassium 3.7 (3.3-5.1) mmol/L Chloride 107 (96-108) mmol/L Carbon Dioxide 18 L (22-29) mmol/L Anion Gap 16 (12-20) BUN 12 (9-16) mg/dL Creatinine 0.82 (0.5-1.4) mg/dL Estim Creat Clear Calc 85.1 Estimated GFR > 60 POC Glucose 108 (60-115) mg/dL Random Glucose 104 (60-115) mg/dL Lactic Acid (0.5-2.0) mmol/L Calcium 9.2 (8.4-10.2) mg/dL Magnesium 2.1 (1.6-2.6) mg/dL Total Bilirubin 1.0 (0.0-1.0) mg/dL Direct Bilirubin 0.3 (0.0-0.5) mg/dL AST 21 (5-31) U/L ALT 14 (0-31) U/L Alkaline Phosphatase 58 (39-117) U/L Total Protein 8.5 H (6.5-8.0) g/dL Albumin 4.4 (3.5-5.0) g/dL 07/08/21 Range/Units 15:41 WBC (4.8-10.8) X10*3/uL RBC (4.20-5.50) X10*6/uL Hgb (12.0-16.0) g/dl Hct (37-47) % MCV (80-98) fL MCH (27.0-33.0) pg MCHC (31.0-35.0) g/dl RDW (11.0-16.0) % Plt Count (160-400) X10*3/uL MPV (9.4-12.3) fL Immature Gran % (Auto) Neut % (Auto) Lymph % (Auto) [place] % (Auto) Eos % (Auto) Baso % (Auto) Lymph # (Auto) [place] # (Auto) Eos # (Auto) Baso # (Auto) Abs Immat Gran (auto) Absolute Neuts (auto) Absolute Nucleated RBC (0.0-0.012) X10*3/uL Nucleated RBC % (auto) (0.0-0.2) /100WBC Neutrophils % (Manual) (45-73) % Lymphocytes % (Manual) (20-40) % Monocytes % (Manual) (2-11) % Abs Neuts (Manual) (2.2-7.9) X10*3/uL Lymphocytes # (Manual) (0.6-4.8) X10*3/uL Monocytes # (Manual) (0.0-1.2) X10*3/uL Platelet Estimate (NORMAL) Large Platelets Plt Morphology Comment RBC Morphology Sodium (135-145) mmol/L Potassium (3.3-5.1) mmol/L Chloride (96-108) mmol/L Carbon Dioxide (22-29) mmol/L Anion Gap (12-20) BUN (9-16) mg/dL Creatinine (0.5-1.4) mg/dL Estim Creat Clear Calc Estimated GFR POC Glucose (60-115) mg/dL Random Glucose (60-115) mg/dL Lactic Acid 2.8 H* (0.5-2.0) mmol/L Calcium (8.4-10.2) mg/dL Magnesium (1.6-2.6) mg/dL Total Bilirubin (0.0-1.0) mg/dL Direct Bilirubin (0.0-0.5) mg/dL AST (5-31) U/L ALT (0-31) U/L Alkaline Phosphatase (39-117) U/L Total Protein (6.5-8.0) g/dL Albumin (3.5-5.0) g/dL Discharge Plan Discharge Clinical Impression: Complicated UTI (urinary tract infection), Intractable nausea and vomiting Patient Disposition: Admitted As Inpatient Prescriptions: No Action ascorbic acid (vitamin C) 1,000 mg tablet 1 g PO DAILY 90 Days Qty: 90 RF: 0 phenazopyridine 100 mg Tablet 100 mg PO TIDWM Qty: 6 RF: 0 ferrous sulfate 324 mg (65 mg iron) Tablet,Delayed Release (Dr/Ec) 324 mg PO DAILY Qty: 30 RF: 0 levofloxacin 500 mg tablet 500 mg PO DAILY Qty: 4 RF: 0 ibuprofen 800 mg tablet 1 tab PO Q8H PRN (Reason: pain) Qty: 60 RF: 1 nicotine (polacrilex) 2 mg gum 2 mg buccal Q1H Qty: 110 RF: 0
[2021-07-08] MEDS: Morphine Sulfate 4 MG/ML CARTRIDGE IVPUSH ×2 (15:42→21:28)
[2021-07-08] MEDS: ondansetron HCL 4 MG/2 ML VIAL IVPUSH ×2 (15:42→22:52)
[2021-07-08] MEDS: 0.9 % Sodium Chloride 1,000 ML 999 ML IV (15:43)
--- NOTE | 2021-07-08 15:46 | PC.NURSE ---
iv inserted, labs drawn, pt medicated for 10/10 abd/back pain, medicated for nausea, ivf running per order, pt aware we need urine, will continue to monitor.
[2021-07-08 15:48] LABS: Hematocrit 32.8 % (37-47); Mean Corpuscular HGB Conc 30.5 g/dl (31.0-35.0); Mean Corpuscular Hemoglobin 23.4 pg (27.0-33.0); Mean Corpuscular Volume 76.6 fL (80-98); Mean Platelet Volume 11.9 fL (9.4-12.3); Platelet Count 259 X10*3/uL (160-400); Red Blood Count 4.28 X10*6/uL (4.20-5.50); Red Cell Distribution Width 17.2 % (11.0-16.0)
[2021-07-08 15:55] LABS: WBC ABN SCTR FOR CBC 1
[2021-07-08 16:09] LABS: Alanine Aminotransferase 14 U/L (0-31); Albumin Level 4.4 g/dL (3.5-5.0); Alkaline Phosphatase 58 U/L (39-117); Anion Gap 16 (12-20); Aspartate Amino Transferase 21 U/L (5-31); Bilirubin Direct 0.3 mg/dL (0.0-0.5); Blood Urea Nitrogen 12 mg/dL (9-16); Calcium 9.2 mg/dL (8.4-10.2); Carbon Dioxide 18 mmol/L (22-29); Chloride 107 mmol/L (96-108); Creatinine Clr Calc Pharmacy 85.1; Estimated Glomerular Filt Rate > 60; Glucose Random 104 mg/dL (60-115); Magnesium 2.1 mg/dL (1.6-2.6); Potassium 3.7 mmol/L (3.3-5.1); Sodium 137 mmol/L (135-145); Total Protein 8.5 g/dL (6.5-8.0)
[2021-07-08] MEDS: levoFLOXacin/D5W 500 MG/100 ML PIGGYBACK 100 MG IV (16:12)
[2021-07-08 16:14] LABS: Lactic Acid 2.8 mmol/L (0.5-2.0)
--- NOTE | 2021-07-08 16:15 | PC.NURSE ---
abx started per order
[2021-07-08 16:26] LABS: Lymphocytes Percent Manual 5 % (20-40); Monocytes Percent Manual 2 % (2-11); Neutrophils Percent Manual 93 % (45-73); Platelet Estimate NORMAL (NORMAL); RBC Morphology NORMAL
[2021-07-08 16:27] LABS: Large Platelet PRESENT; Platelet Morphology Comment NOTED
[2021-07-08 16:28] LABS: Lymphocytes Absolute Manual 0.4 X10*3/uL (0.6-4.8); Monocytes Absolute Manual 0.2 X10*3/uL (0.0-1.2); White Blood Count 8.5 X10*3/uL (4.8-10.8)
[2021-07-08 16:29] LABS: Neutrophils Absolute Manual 7.9 X10*3/uL (2.2-7.9)
[2021-07-08] MEDS: diphenhydrAMINE HCL 50 MG/ML VIAL 25 MG IVPUSH (17:15)
[2021-07-08] MEDS: Metoclopramide HCl 10 MG/2 ML VIAL IVPUSH (17:15)
--- NOTE | 2021-07-08 17:18 | PC.NURSE ---
DRY HEAVING CONTINUES. PT REMAINS ALERT, SKIN MOIST, WARM, .
[2021-07-08 17:45] LABS: Reflex Lactate? Lactic Acid Added
[2021-07-08] MEDS: Haloperidol Lactate 5 MG/ML VIAL 1 MG IVPUSH (17:59)
[2021-07-08 18:00] LABS: Glucose Urine UA 100 MG/DL (NEG); Leukocyte Esterase Urine TRACE (NEG); Nitrite Urine POS (NEG); PH 5.5 (5.0-8.0); Specific Gravity - Urine >= 1.030 (1.005-1.025); UACC Culture Trigger YES; Urine Blood NEG (NEG); Urine Ketones 40 MG/DL (NEG); Urine Protein 1+ MG/DL (NEG-TRACE)
[2021-07-08] MEDS: LORazepam 2 MG/ML VIAL 1 MG IVPUSH (18:00)
[2021-07-08 18:10] LABS: Appearance Urine HAZY; Color Urine ORANGE
[2021-07-08 18:14] LABS: Amorphous Sediment Urine TRACE /LPF; Bacteria Urine 2+ /LPF; Mucus Urine 3+ /LPF; RBC Urine 0 /HPF (0); Squamous Epithelial Cell Urine 4+ /LPF
[2021-07-08 18:21] LABS: UPreg QC Valid YES; Urine Pregnancy NEGATIVE (NEGATIVE)
[2021-07-08] MEDS: Ketorolac Tromethamine 15 MG/ML VIAL 30 MG IVPUSH (19:26)
--- NOTE | 2021-07-08 19:28 | PC.NURSE ---
patient medicated for 10/10 pain per order
[2021-07-08] MEDS: Heparin Sodium,Porcine 5,000 UNIT/ML VIAL 5000 UNIT SUBCUT (21:28)
[2021-07-08] MEDS: cefTRIAXone sodium 1 GM in 0.9 % Sodium Chloride 50 ML IV (21:29)
--- NOTE | 2021-07-08 21:33 | PC.NURSE ---
pt medicated for pain and iv antibiotics started per order. will begin LR after abx finished as they are not compatible per pharmacy
[2021-07-08 21:43] LABS: COVID-19 Test Negative (Negative); IDNOW Serial# 08D9AD1C
[2021-07-08] MEDS: iohexoL 350 MG/ML 100 ML INFUS..BTL IV (21:57)
[2021-07-08] MEDS: Lactated Ringers 1,000 ML 80 ML IVCONT (22:06)
--- NOTE | 2021-07-08 22:11 | PC.NURSE ---
report called to the floor
[2021-07-08] MEDS: Melatonin 3 MG TABLET 6 MG PO (23:41)
[2021-07-09] VITALS (9 sets, daily range): BP systolic 111–167; BP diastolic 64–93; PULSE 66–101; RESP 12–19; TEMP 36–36.9; O2SAT 93–100
[2021-07-09] MEDS: Morphine Sulfate 4 MG/ML CARTRIDGE IVPUSH ×6 (01:20→22:42)
--- NOTE | 2021-07-09 06:22 | PM.IMHP ---
History of Present Illness Date of Service: 07/09/21 Chief Complaint: Nausea vomiting, suprapubic pain 41-year-old female with past medical history of frequent UTI pyelonephritis, cyclic vomiting syndrome returns to the hospital after being managed for UTI and discharge in a.m. stating that she has had recurrent nausea and vomiting, inability to keep anything down, and severe pain in the suprapubic region as well as flank pain. Reports that she also has sweats, shaking, and had discharge from the vaginal region. Patient denies chest pain, no shortness of breath, no headache or change in vision, no lower extremity edema, no numbness tingling. Vitals reviewed showed no abnormality Labs significant for WBC count of 8.5, otherwise unremarkable. UA is positive for leukocyte Estrace, nitrites, and some WBC. Patient has significant flank and suprapubic pain, and therefore will undergo CT scan of the abdomen and admitted for further management Review of Systems Review of Systems: Yes all other systems are reviewed and are negative [facility] Medical History Abscess Cyclical vomiting Hidradenitis suppurativa Hypokalemia Hypothyroidism Marijuana abuse Opioid abuse Pelvic inflammatory disease Pyelonephritis UTI (urinary tract infection) Family History Mother CVD (cardiovascular disease) HTN (hypertension) Maternal Grandmother High cholesterol HTN (hypertension) Maternal Grandfather Prostate cancer Other Heart disease Surgical History Tubal ligation status Social History Household Members: Family Housing: Apartment Do you presently have visiting nurse or other home services: No Alcohol intake: never Patient Tobacco Use Status: Current everyday Tobacco user Tobacco use type: Cigarette Cigarettes Per Day: 4 Years Smoked: 20 Smoked in Last 30 Days: Yes Patient Interested in Nicotine Replacement: Yes Patient Given Instructions on How to Stop Smoking: No Second Hand Smoke Exposure: No Use of substances other than those prescribed or required for medical reasons: Yes Substance Use Type: Marijuana Substance Use Frequency: Daily Currently Displaying Signs/Symptoms of Drug Intoxication Withdrawal: No Any prior treatment program specific to substance use: No Have you been hit, kicked, punched, or otherwise hurt by someone within the past year? If so, by whom?: No Do you feel safe in your current relationship?: No Is there a partner from a previous relationship who is making you feel unsafe now?: No Are you made to feel afraid or neglected: No Advance Directives: Yes Advance Directives on File: Yes Advance Directives Date on File: 01/02/21 Do you have thoughts of harming others: None Do you have a plan to hurt others: No Plan Recently lost weight without trying: No How much weight loss: 2-13 pounds Eating poorly because of decreased appetite: No Nutrition screen score: 1 Nutrition Risks: No Nutritional Risk Patient : No : No Poor oral hygiene: No service: No Current occupational status: employed Meds Allergies Allergy/AdvReac Type Severity Reaction Status Date / Time amoxicillin [Amoxicillin] Allergy Intermediate HIVES Verified 07/08/21 15:11 tramadol AdvReac Intermediate SOB Verified 07/08/21 15:11 Active Medications: Current Medications Generic Name Dose Route Start Last Admin Trade Name Freq PRN Reason Stop Dose Admin Acetaminophen 650 mg 07/08/21 21:01 Acetaminophen 325 Mg Tablet PO Q6H PRN Pain, Mild (Pain Scale 1-3) Ascorbic Acid 1,000 mg 07/09/21 09:00 Ascorbic Acid 500 Mg Tablet PO DAILY [facility] Docusate Sodium 100 mg 07/08/21 21:01 Docusate Sodium 100 Mg Capsule PO DAILY PRN Constipation Ferrous Sulfate 324 mg 07/09/21 09:00 Ferrous Sulfate 324 Mg Tablet.Dr PO DAILY [facility] Heparin Sodium (Porcine) 5,000 unit 07/08/21 22:00 07/08/21 22:09 Heparin Sodium,Porcine 5,000 Unit/Ml Vial SUBCUT Not Given Q12H [facility] Ceftriaxone Sodium 1 gm/ 50 mls @ 100 mls/hr 07/08/21 22:00 07/08/21 22:11 Sodium Chloride IV Infused Q24H VICTOR M Infusion Lactated Ringer's 1,000 mls @ 80 mls/hr 07/08/21 21:01 07/08/21 22:06 Lr IVCONT 80 mls/hr .[id number] VICTOR M Administration Morphine Sulfate 4 mg 07/08/21 21:01 07/09/21 01:20 Morphine Sulfate 4 Mg/Ml Cartridge IVPUSH 4 mg Q4H PRN Administration Pain, Severe (Pain Scale 7-10) Protocol Ondansetron HCl 4 mg 07/08/21 21:01 07/08/21 22:52 Ondansetron Hcl 4 Mg/2 Ml Vial IVPUSH 4 mg Q8H PRN Administration Nausea and Vomiting Phenazopyridine HCl 100 mg 07/09/21 08:00 Phenazopyridine Hcl 100 Mg Tablet PO TIDWM [facility] Sodium Chloride 3 ml 07/09/21 00:00 07/08/21 22:51 0.9 % Sodium Chloride Flush 3 Ml Syringe IVFLUSH Not Given QSHIFT [facility] Physical Exam Vital Signs and Narrative: Vital Signs: Last Vital Signs Temp 97.5 F 07/09/21 04:00 Pulse 75 07/09/21 04:00 Resp 18 07/09/21 04:00 BP 111/71 07/09/21 04:00 Pulse Ox 100 07/09/21 04:00 Body Mass Index 25.7 Const: General: cooperative and no acute distress Orientation/consciousness: patient oriented x3 Eyes: General: appearance normal, both eyes and all related structures Resp: Effort & Inspection: normal respiratory effort and able to speak in complete sentences Auscultation: clear to auscultation bilaterally Cardio: Rate: regular rate Rhythm: regular rhythm GI: Other: Suprapubic tenderness, no guarding, no rebound Palpation (GI): Soft to palpation Auscultation: normal bowel sounds : Other: CVA tenderness Skin: General skin exam: no rashes or lesions noted Neuro: General: patient oriented x3 Cognition (Neuro): normal cognition Extrem: General: Yes normal to inspection and Yes no pedal edema Results Labs CBC and Chem 7: 07/08/21 15:41 07/08/21 15:41 Labs: Laboratory Results - last 24 hr 07/08/21 07/08/21 07/08/21 15:12 15:41 15:41 MCV 76.6 L MCH 23.4 L MCHC 30.5 L RDW 17.2 H Plt Count 259 D MPV 11.9 Immature Gran % (Auto) Cancelled Neut % (Auto) Cancelled Lymph % (Auto) Cancelled [place] % (Auto) Cancelled Eos % (Auto) Cancelled Baso % (Auto) Cancelled Lymph # (Auto) Cancelled [place] # (Auto) Cancelled Eos # (Auto) Cancelled Baso # (Auto) Cancelled Abs Immat Gran (auto) Cancelled Absolute Neuts (auto) Cancelled Absolute Nucleated RBC 0.000 Nucleated RBC % (auto) 0.0 Neutrophils % (Manual) 93 H Lymphocytes % (Manual) 5 L Monocytes % (Manual) 2 Abs Neuts (Manual) 7.9 Lymphocytes # (Manual) 0.4 L Monocytes # (Manual) 0.2 Platelet Estimate NORMAL Large Platelets PRESENT Plt Morphology Comment NOTED RBC Morphology NORMAL Anion Gap 16 Estim Creat Clear Calc 85.1 Estimated GFR > 60 POC Glucose 108 Random Glucose 104 Lactic Acid Lactic Acid Fup @ 2Hr Calcium 9.2 Magnesium 2.1 Total Bilirubin 1.0 Direct Bilirubin 0.3 AST 21 ALT 14 Alkaline Phosphatase 58 Total Protein 8.5 H Albumin 4.4 Urine Color Urine Appearance Urine pH Ur Specific [place] Urine Protein Urine Glucose (UA) Urine Ketones Urine Blood Urine Nitrite Ur Leukocyte Esterase Urine RBC Urine WBC Ur Squamous Epith Cells Amorphous Sediment Urine Bacteria Urine Mucus Urine Test COVID-19 (MILLICENT) COVID-19 Clin Com 07/08/21 07/08/21 07/08/21 15:41 17:47 17:47 MCV MCH MCHC RDW Plt Count MPV Immature Gran % (Auto) Neut % (Auto) Lymph % (Auto) [place] % (Auto) Eos % (Auto) Baso % (Auto) Lymph # (Auto) [place] # (Auto) Eos # (Auto) Baso # (Auto) Abs Immat Gran (auto) Absolute Neuts (auto) Absolute Nucleated RBC Nucleated RBC % (auto) Neutrophils % (Manual) Lymphocytes % (Manual) Monocytes % (Manual) Abs Neuts (Manual) Lymphocytes # (Manual) Monocytes # (Manual) Platelet Estimate Large Platelets Plt Morphology Comment RBC Morphology Anion Gap Estim Creat Clear Calc Estimated GFR POC Glucose Random Glucose Lactic Acid 2.8 H* Lactic Acid Fup @ 2Hr Calcium Magnesium Total Bilirubin Direct Bilirubin AST ALT Alkaline Phosphatase Total Protein Albumin Urine Color ORANGE Urine Appearance HAZY Urine pH 5.5 Ur Specific [place] >= 1.030 H Urine Protein 1+ H Urine Glucose (UA) 100 H Urine Ketones 40 Urine Blood NEG Urine Nitrite POS H Ur Leukocyte Esterase TRACE H Urine RBC 0 Urine WBC 1-4 Ur Squamous Epith Cells 4+ Amorphous Sediment TRACE Urine Bacteria 2+ Urine Mucus 3+ Urine Test NEGATIVE COVID-19 (MILLICENT) COVID-19 Clin Com 07/08/21 07/08/21 07/08/21 18:24 18:25 21:18 MCV MCH MCHC RDW Plt Count MPV Immature Gran % (Auto) Neut % (Auto) Lymph % (Auto) [place] % (Auto) Eos % (Auto) Baso % (Auto) Lymph # (Auto) [place] # (Auto) Eos # (Auto) Baso # (Auto) Abs Immat Gran (auto) Absolute Neuts (auto) Absolute Nucleated RBC Nucleated RBC % (auto) Neutrophils % (Manual) Lymphocytes % (Manual) Monocytes % (Manual) Abs Neuts (Manual) Lymphocytes # (Manual) Monocytes # (Manual) Platelet Estimate Large Platelets Plt Morphology Comment RBC Morphology Anion Gap Estim Creat Clear Calc Estimated GFR POC Glucose Random Glucose Lactic Acid 2.0 Lactic Acid Fup @ 2Hr Cancelled Calcium Magnesium Total Bilirubin Direct Bilirubin AST ALT Alkaline Phosphatase Total Protein Albumin Urine Color Urine Appearance Urine pH Ur Specific [place] Urine Protein Urine Glucose (UA) Urine Ketones Urine Blood Urine Nitrite Ur Leukocyte Esterase Urine RBC Urine WBC Ur Squamous Epith Cells Amorphous Sediment Urine Bacteria Urine Mucus Urine Test COVID-19 (MILLICENT) Negative COVID-19 Clin Com See Note Imaging Radiologist's Impressions: Impressions Abdomen/Pelvis CT 07/08/21 20:58 IMPRESSION: Symmetric bilateral renal enhancement. No CT evidence of pyelonephritis. No hydronephrosis or hydroureter. Assessment and Plan (1) Pyelonephritis: Status: Acute (2) UTI (urinary tract infection): Qualifiers: Hematuria presence: without hematuria Urinary tract infection type: acute cystitis Qualified Code(s): N30.00 - Acute cystitis without hematuria Status: Acute (3) Vaginal discharge: Status: Acute 41-year-old female with past medical history of hypothyroidism, marijuana abuse, opioid abuse, pelvic inflammatory disease, history pyelo and UTI presents to the hospital with complaints of nausea vomiting, as well as flank pain # UTI/pyelonephritis - has clinical symptoms of pyelonephritis with CVA tenderness, UA continues to be positive for nitrates, - patient was discharged on levofloxacin on 07/08 - cultures from 07/07 negative to date - will switch her antibiotics to ceftriaxone - re-culture the urine - # reports vaginal discharge with history of PID - will obtain chlamydia, gonorrhea PCR - will obtain pelvic ultrasound - IV antibiotics DVT prophylaxis: Heparin subQ Quality Stroke Does the patient have a stroke diagnosis?: No VTE Prior VTE?: No VTE Risk Level:: Medical - moderate - high VTE Device Contraindication: Treatment Not Indicated VTE Drug Contraindication: N/A - Med Ordered
[2021-07-09 07:31] LABS: MANUAL DIFF FLAG NO
[2021-07-09 07:36] LABS: Basophils Percent Auto 0.1 % (0-2); Eosinophils Percent Auto 0.3 % (0-4); Hematocrit 28.7 % (37-47); Hemoglobin 8.5 g/dl (12.0-16.0); Imm Gran Abs Auto 0.02 X10*3/uL (0.00-0.03); Imm Gran Pct Auto 0.3 % (0.0-0.4); Lymphocytes Absolute Auto 1.6 X10*3/uL (1.2-4.9); Lymphocytes Percent Auto 24.3 % (20-40); Mean Corpuscular HGB Conc 29.6 g/dl (31.0-35.0); Mean Corpuscular Volume 77.6 fL (80-98); Mean Platelet Volume 12.6 fL (9.4-12.3); Monocytes Absolute Auto 0.6 X10*3/uL (0.1-1.2); Monocytes Percent Auto 9.4 % (2-11); Neutrophils Absolute Auto 4.4 X10*3/uL (2.0-8.3); Neutrophils Percent Auto 65.6 % (45-73); Platelet Count 202 X10*3/uL (160-400); Red Cell Distribution Width 17.1 % (11.0-16.0); White Blood Count 6.7 X10*3/uL (4.8-10.8)
[2021-07-09 08:11] LABS: Anion Gap 9 (12-20); Blood Urea Nitrogen 8 mg/dL (9-16); Calcium 8.6 mg/dL (8.4-10.2); Carbon Dioxide 24 mmol/L (22-29); Chloride 106 mmol/L (96-108); Creatinine Clr Calc Pharmacy 101.1; Estimated Glomerular Filt Rate > 60; Glucose Random 100 mg/dL (60-115); Potassium 3.2 mmol/L (3.3-5.1); Sodium 136 mmol/L (135-145)
[2021-07-09] MEDS: Ascorbic Acid 500 MG TABLET 1000 MG PO (08:28)
[2021-07-09] MEDS: metroNIDAZOLE 500 MG TABLET PO ×2 (08:29→21:22)
[2021-07-09] MEDS: 0.9 % Sodium Chloride Flush 3 ML SYRINGE IVFLUSH (08:29)
[2021-07-09] MEDS: Phenazopyridine HCL 100 MG TABLET PO ×3 (08:29→17:34)
[2021-07-09] MEDS: Heparin Sodium,Porcine 5,000 UNIT/ML VIAL 5000 UNIT SUBCUT ×2 (08:29→21:56)
[2021-07-09] MEDS: Ferrous Sulfate 324 MG TABLET.DR PO (08:29)
[2021-07-09] MEDS: Doxycycline Hyclate 100 MG in 0.9 % Sodium Chloride 250 ML 166.67 MG IV ×2 (08:30→20:04)
[2021-07-09 08:32] LABS: C Reactive Protein 0.18 mg/dL (< or = 0.50)
[2021-07-09] MEDS: Potassium Chloride Packet 20 MEQ PACKET 40 MEQ PO (08:55)
--- NOTE | 2021-07-09 11:03 | HO.PM.IMPN ---
Subjective Subjective Date of Service: 07/09/21 Interval History: Readmitted for nausea/vomiting/suprapubic pain Now has vaginal discharge History of PID Review of Systems Review of Systems: Yes all other systems are reviewed and are negative Physical Exam Vital Signs: Vital Signs: Last Vital Signs Temp 98.4 F 07/09/21 07:33 Pulse 87 07/09/21 07:33 Resp 18 07/09/21 10:48 BP 132/85 07/09/21 07:33 Pulse Ox 97 07/09/21 07:33 Body Mass Index 25.7 Gen: in no acute distress HEENT: sclera anicteric, moist mucus membranes Neck: supple Lungs: clear to auscultation bilaterally Heart: regular rate and rhythm, no murmurs Abd: soft, non-tender, non-distended, suprapubic tenderness Ext: no edema Skin: warm/well-perfused Neuro: alert and oriented x3, no focal findings Psych: appropriate affect Objective Data Current Medications Generic Name Dose Route Start Last Admin Trade Name Freq PRN Reason Stop Dose Admin Acetaminophen 650 mg 07/08/21 21:01 Acetaminophen 325 Mg Tablet PO Q6H PRN Pain, Mild (Pain Scale 1-3) Ascorbic Acid 1,000 mg 07/09/21 09:00 07/09/21 08:28 Ascorbic Acid 500 Mg Tablet PO 1,000 mg DAILY VICTOR M Administration Docusate Sodium 100 mg 07/08/21 21:01 Docusate Sodium 100 Mg Capsule PO DAILY PRN Constipation Ferrous Sulfate 324 mg 07/09/21 09:00 07/09/21 08:29 Ferrous Sulfate 324 Mg Tablet. PO 324 mg DAILY VICTOR M Administration Heparin Sodium (Porcine) 5,000 unit 07/08/21 22:00 07/09/21 08:29 Heparin Sodium,Porcine 5,000 Unit/Ml Vial SUBCUT 5,000 unit Q12H VICTOR M Administration Ceftriaxone Sodium 1 gm/ 50 mls @ 100 mls/hr 07/08/21 22:00 07/08/21 22:11 Sodium Chloride IV Infused Q24H VICTOR M Infusion Lactated Ringer's 1,000 mls @ 80 mls/hr 07/08/21 21:01 07/09/21 08:56 Lr IVCONT 0 mls/hr .[id number] VICTOR M Infusion Doxycycline Hyclate 100 mg/ 250 mls @ 166.67 mls/hr 07/09/21 07:45 07/09/21 10:52 Sodium Chloride IV Infused Q12H VICTOR M Infusion Metronidazole 500 mg 07/09/21 07:45 07/09/21 08:29 Metronidazole 500 Mg Tablet PO 500 mg Q12H VICTOR M Administration Morphine Sulfate 4 mg 07/08/21 21:01 07/09/21 10:48 Morphine Sulfate 4 Mg/Ml Cartridge IVPUSH 4 mg Q4H PRN Administration Pain, Severe (Pain Scale 7-10) Protocol Ondansetron HCl 4 mg 07/08/21 21:01 07/08/21 22:52 Ondansetron Hcl 4 Mg/2 Ml Vial IVPUSH 4 mg Q8H PRN Administration Nausea and Vomiting Phenazopyridine HCl 100 mg 07/09/21 08:00 07/09/21 08:29 Phenazopyridine Hcl 100 Mg Tablet PO 100 mg TIDWM VICTOR M Administration Sodium Chloride 3 ml 07/09/21 00:00 07/09/21 08:29 0.9 % Sodium Chloride Flush 3 Ml Syringe IVFLUSH 3 ml QSHIFT VICTOR M Administration Labs CBC & Chem 7: 07/09/21 06:56 07/09/21 06:56 Labs: Laboratory Results - last 24 hr 07/08/21 07/08/21 07/08/21 15:12 15:41 15:41 MCV 76.6 L MCH 23.4 L MCHC 30.5 L RDW 17.2 H Plt Count 259 D MPV 11.9 Immature Gran % (Auto) Cancelled Neut % (Auto) Cancelled Lymph % (Auto) Cancelled [place] % (Auto) Cancelled Eos % (Auto) Cancelled Baso % (Auto) Cancelled Lymph # (Auto) Cancelled [place] # (Auto) Cancelled Eos # (Auto) Cancelled Baso # (Auto) Cancelled Abs Immat Gran (auto) Cancelled Absolute Neuts (auto) Cancelled Absolute Nucleated RBC 0.000 Nucleated RBC % (auto) 0.0 Neutrophils % (Manual) 93 H Lymphocytes % (Manual) 5 L Monocytes % (Manual) 2 Abs Neuts (Manual) 7.9 Lymphocytes # (Manual) 0.4 L Monocytes # (Manual) 0.2 Platelet Estimate NORMAL Large Platelets PRESENT Plt Morphology Comment NOTED RBC Morphology NORMAL Anion Gap 16 Estim Creat Clear Calc 85.1 Estimated GFR > 60 POC Glucose 108 Random Glucose 104 Lactic Acid Lactic Acid Fup @ 2Hr Calcium 9.2 Magnesium 2.1 Total Bilirubin 1.0 Direct Bilirubin 0.3 AST 21 ALT 14 Alkaline Phosphatase 58 C-Reactive Protein Total Protein 8.5 H Albumin 4.4 Urine Color Urine Appearance Urine pH Ur Specific [place] Urine Protein Urine Glucose (UA) Urine Ketones Urine Blood Urine Nitrite Ur Leukocyte Esterase Urine RBC Urine WBC Ur Squamous Epith Cells Amorphous Sediment Urine Bacteria Urine Mucus Urine Test COVID-19 (MILLICENT) COVID-19 [employer] 07/08/21 07/08/21 07/08/21 15:41 17:47 17:47 MCV MCH MCHC RDW Plt Count MPV Immature Gran % (Auto) Neut % (Auto) Lymph % (Auto) [place] % (Auto) Eos % (Auto) Baso % (Auto) Lymph # (Auto) [place] # (Auto) Eos # (Auto) Baso # (Auto) Abs Immat Gran (auto) Absolute Neuts (auto) Absolute Nucleated RBC Nucleated RBC % (auto) Neutrophils % (Manual) Lymphocytes % (Manual) Monocytes % (Manual) Abs Neuts (Manual) Lymphocytes # (Manual) Monocytes # (Manual) Platelet Estimate Large Platelets Plt Morphology Comment RBC Morphology Anion Gap Estim Creat Clear Calc Estimated GFR POC Glucose Random Glucose Lactic Acid 2.8 H* Lactic Acid Fup @ 2Hr Calcium Magnesium Total Bilirubin Direct Bilirubin AST ALT Alkaline Phosphatase C-Reactive Protein Total Protein Albumin Urine Color ORANGE Urine Appearance HAZY Urine pH 5.5 Ur Specific [place] >= 1.030 H Urine Protein 1+ H Urine Glucose (UA) 100 H Urine Ketones 40 Urine Blood NEG Urine Nitrite POS H Ur Leukocyte Esterase TRACE H Urine RBC 0 Urine WBC 1-4 Ur Squamous Epith Cells 4+ Amorphous Sediment TRACE Urine Bacteria 2+ Urine Mucus 3+ Urine Test NEGATIVE COVID-19 (MILLICENT) COVID-19 Daily [place] Com 07/08/21 07/08/21 07/08/21 18:24 18:25 21:18 MCV MCH MCHC RDW Plt Count MPV Immature Gran % (Auto) Neut % (Auto) Lymph % (Auto) [place] % (Auto) Eos % (Auto) Baso % (Auto) Lymph # (Auto) [place] # (Auto) Eos # (Auto) Baso # (Auto) Abs Immat Gran (auto) Absolute Neuts (auto) Absolute Nucleated RBC Nucleated RBC % (auto) Neutrophils % (Manual) Lymphocytes % (Manual) Monocytes % (Manual) Abs Neuts (Manual) Lymphocytes # (Manual) Monocytes # (Manual) Platelet Estimate Large Platelets Plt Morphology Comment RBC Morphology Anion Gap Estim Creat Clear Calc Estimated GFR POC Glucose Random Glucose Lactic Acid 2.0 Lactic Acid Fup @ 2Hr Cancelled Calcium Magnesium Total Bilirubin Direct Bilirubin AST ALT Alkaline Phosphatase C-Reactive Protein Total Protein Albumin Urine Color Urine Appearance Urine pH Ur Specific [place] Urine Protein Urine Glucose (UA) Urine Ketones Urine Blood Urine Nitrite Ur Leukocyte Esterase Urine RBC Urine WBC Ur Squamous Epith Cells Amorphous Sediment Urine Bacteria Urine Mucus Urine Test COVID-19 (MILLICENT) Negative COVID-19 Clin Com See Note 07/09/21 07/09/21 06:56 06:56 MCV 77.6 L MCH 23.0 L MCHC 29.6 L RDW 17.1 H Plt Count 202 MPV 12.6 H Immature Gran % (Auto) 0.3 Neut % (Auto) 65.6 Lymph % (Auto) 24.3 [place] % (Auto) 9.4 Eos % (Auto) 0.3 Baso % (Auto) 0.1 Lymph # (Auto) 1.6 [place] # (Auto) 0.6 Eos # (Auto) 0.0 Baso # (Auto) 0.0 Abs Immat Gran (auto) 0.02 Absolute Neuts (auto) 4.4 Absolute Nucleated RBC 0.000 Nucleated RBC % (auto) 0.0 Neutrophils % (Manual) Lymphocytes % (Manual) Monocytes % (Manual) Abs Neuts (Manual) Lymphocytes # (Manual) Monocytes # (Manual) Platelet Estimate Large Platelets Plt Morphology Comment RBC Morphology Anion Gap 9 L Estim Creat Clear Calc 101.1 Estimated GFR > 60 POC Glucose Random Glucose 100 Lactic Acid Lactic Acid Fup @ 2Hr Calcium 8.6 D Magnesium Total Bilirubin Direct Bilirubin AST ALT Alkaline Phosphatase C-Reactive Protein 0.18 Total Protein Albumin Urine Color Urine Appearance Urine pH Ur Specific [place] Urine Protein Urine Glucose (UA) Urine Ketones Urine Blood Urine Nitrite Ur Leukocyte Esterase Urine RBC Urine WBC Ur Squamous Epith Cells Amorphous Sediment Urine Bacteria Urine Mucus Urine Test COVID-19 (MILLICENT) COVID-19 Clin Com ITS Impressions Abdomen/Pelvis CT 07/08/21 20:58 IMPRESSION: Symmetric bilateral renal enhancement. No CT evidence of pyelonephritis. No hydronephrosis or hydroureter. Pelvis Ultrasound 07/09/21 09:55 IMPRESSION: 1. Endometrium measures 1.8 cm in thickness. Correlation with menstrual cycle recommended. 2. Nabothian cysts and a 1.9 cm suspected Papi's duct cyst of the vagina noted. 3. 3 cm minimally complex right paraovarian cyst present. 4. Mild to moderate amount of free pelvic fluid. Transvaginal US 07/09/21 09:55 IMPRESSION: 1. Endometrium measures 1.8 cm in thickness. Correlation with menstrual cycle recommended. 2. Nabothian cysts and a 1.9 cm suspected Papi's duct cyst of the vagina noted. 3. 3 cm minimally complex right paraovarian cyst present. 4. Mild to moderate amount of free pelvic fluid. Microbiology Microbiology Results: Microbiology 07/08/21 15:41 Blood Culture - Preliminary Blood - Venous Prelim: GPC Gram Stain only Assessment and Plan (1) Vaginal discharge: Status: Acute Assessment and Plan: hospital d#2 41yo F with frequent UTI/pyelonephritis, frequent THC use, hx PID; admitted 07/07-07/08/21 for suspected UTI with N/V, readmitted 07/08/21 for recurrent/persistent symptoms but now with vaginal discharge # UTI vs PID - ceftriaxone d#2, follow UCx. check GC/CT + BV swab. 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 will treat as for PID by adding doxycycline and metronidazole d#1 - IV fluids, ondansetron, morphine # ?bacteremia - 1/2 BCx pos for GPCs but suspect contaminant; prior BCx were negative; follow up results # anemia - Fe supplementation # VTE ppx - UFH Quality Stroke Does the patient have a stroke diagnosis?: No VTE Prior VTE?: No VTE Risk Level:: Medical - moderate - high VTE Device Contraindication: Treatment Not Indicated VTE Drug Contraindication: N/A - Med Ordered
[2021-07-09] MEDS: Lactated Ringers 1,000 ML 80 ML IVCONT (12:06)
[2021-07-09 13:18] LABS: CT PCR NOT DETECTED (Not Detect.); NG PCR NOT DETECTED (Not Detect.)
--- NOTE | 2021-07-09 15:43 | MHC.CM.PN ---
CM MET WITH PT WHO REPORTS SHE LIVES WITH ONE OF HER ADULT DAUGHTERS. PT REPORTS SHE IS INDEPENDENT WITH CARE AND WORKS PT HAS NO SERVICES AND NO DME. PT CONFIRMS HER PCP IS ELIZABETH SUH AND HER DAUGHTER IS HER HCP, ON FILE. CURRENT DC PLAN IS HOME WITH NO SERVICES PT WILL SELF ARRANGE TRANSPORT
[2021-07-09] MEDS: cefTRIAXone sodium 1 GM in 0.9 % Sodium Chloride 50 ML IV (21:57)
[2021-07-10] VITALS (9 sets, daily range): BP systolic 115–158; BP diastolic 62–91; PULSE 66–77; RESP 14–18; TEMP 36.2–36.9; O2SAT 99–100
[2021-07-10] MEDS: Morphine Sulfate 4 MG/ML CARTRIDGE IVPUSH ×5 (02:48→20:19)
[2021-07-10] MEDS: Melatonin 3 MG TABLET 6 MG PO ×2 (02:48→22:45)
[2021-07-10] MEDS: Lactated Ringers 1,000 ML 80 ML IVCONT ×2 (02:49→16:21)
[2021-07-10] MEDS: Ascorbic Acid 500 MG TABLET 1000 MG PO (07:30)
[2021-07-10] MEDS: Doxycycline Hyclate 100 MG in 0.9 % Sodium Chloride 250 ML 166.67 MG IV (07:30)
[2021-07-10] MEDS: Ferrous Sulfate 324 MG TABLET.DR PO (07:30)
[2021-07-10] MEDS: 0.9 % Sodium Chloride Flush 3 ML SYRINGE IVFLUSH ×2 (07:30→16:22)
[2021-07-10] MEDS: metroNIDAZOLE 500 MG TABLET PO ×2 (07:30→19:27)
[2021-07-10] MEDS: Phenazopyridine HCL 100 MG TABLET PO ×3 (07:31→16:21)
[2021-07-10] MEDS: ondansetron HCL 4 MG/2 ML VIAL IVPUSH (07:38)
[2021-07-10 07:52] LABS: Anion Gap 14 (12-20); Blood Urea Nitrogen 8 mg/dL (9-16); Calcium 8.4 mg/dL (8.4-10.2); Carbon Dioxide 23 mmol/L (22-29); Chloride 104 mmol/L (96-108); Creatinine Clr Calc Pharmacy 98.2; Estimated Glomerular Filt Rate > 60; Glucose Random 78 mg/dL (60-115); Potassium 3.6 mmol/L (3.3-5.1); Sodium 137 mmol/L (135-145)
[2021-07-10 08:14] LABS: Syphilis Screen Nonreactive (Nonreactive)
--- NOTE | 2021-07-10 09:10 | P.CONOB_ITS ---
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 Workup included the following normal CBC, chemistry, urine was positive for nitrite, and the patient has a history of positive Trichomonas a months ago but treated in addition to her partner. The patient was admitted with a presumed diagnosis of PID and pyelonephritis was started on ceftriaxone 1 g Q 24 with doxycycline 100 mg p.o. b.i.d. and Flagyl 500 mg p.o. q.12. Urine culture taken on 07/07 was negative. GC and chlamydia taken on admission post came back negative no BV panel collected. The patient still complaining of pelvic pain and flank pain but states that her pain started to improve this morning. Vaginal discharge is whitish not associated with any odor or itching. Pelvic ultrasound showed no evidence of tubo-ovarian abscess,?3 cm minimally complex right paraovarian cyst present. CT scan was negative cc:: CC: Hebert Orr MD VAT SKIMMER - Review of Systems Review of Systems ROS Unobtainable: All systems reviewed & are unremarkable except as noted in HPI and below Cardiovascular: Denies Palpatations, Loss of consciousness or Chest pain Respiratory: Denies Cough, Wheezing or Shortness of breath Musculoskeletal: Denies Low back pain Gastrointestinal: Denies Heartburn, Constipation, Diarrhea, Nausea or Vomiting Genitourinary: Denies Pain with urination, Burning with urination or Urinary frequency Neurological: Denies Migranes Psychological: Denies Depression OB [facility] Past Medical History Medical History Abscess Cyclical vomiting Hidradenitis suppurativa Hypokalemia Hypothyroidism Marijuana abuse Opioid abuse Pelvic inflammatory disease Pyelonephritis UTI (urinary tract infection) Family History Family History Mother CVD (cardiovascular disease) HTN (hypertension) Maternal Grandmother High cholesterol HTN (hypertension) Maternal Grandfather Prostate cancer Other Heart disease Surgical History Surgical History Tubal ligation status Social History Social History Household Members: Family Housing: Apartment Do you presently have visiting nurse or other home services: No Alcohol intake: never Patient Tobacco Use Status: Current everyday Tobacco user Tobacco use type: Cigarette Cigarettes Per Day: 4 Years Smoked: 20 Smoked in Last 30 Days: Yes Patient Interested in Nicotine Replacement: Yes Patient Given Instructions on How to Stop Smoking: No Second Hand Smoke Exposure: No Use of substances other than those prescribed or required for medical reasons: Yes Substance Use Type: Marijuana Substance Use Frequency: Daily Currently Displaying Signs/Symptoms of Drug Intoxication Withdrawal: No Any prior treatment program specific to substance use: No Have you been hit, kicked, punched, or otherwise hurt by someone within the past year? If so, by whom?: No Do you feel safe in your current relationship?: No Is there a partner from a previous relationship who is making you feel unsafe now?: No Are you made to feel afraid or neglected: No Advance Directives: Yes Advance Directives on File: Yes Advance Directives Date on File: 01/02/21 Do you have thoughts of harming others: None Do you have a plan to hurt others: No Plan Recently lost weight without trying: No How much weight loss: 2-13 pounds Eating poorly because of decreased appetite: No Nutrition screen score: 1 Nutrition Risks: No Nutritional Risk Patient : No : No Poor oral hygiene: No service: No Current occupational status: employed Meds Allergies Allergy/AdvReac Type Severity Reaction Status Date / Time amoxicillin [Amoxicillin] Allergy Intermediate HIVES Verified 07/08/21 15:11 tramadol AdvReac Intermediate SOB Verified 07/08/21 15:11 Active Medications: Current Medications Generic Name Dose Route Start Last Admin Trade Name Freq PRN Reason Stop Dose Admin Acetaminophen 650 mg 07/08/21 21:01 Acetaminophen 325 Mg Tablet PO Q6H PRN Pain, Mild (Pain Scale 1-3) Ascorbic Acid 1,000 mg 07/09/21 09:00 07/10/21 07:30 Ascorbic Acid 500 Mg Tablet PO 1,000 mg DAILY VICTOR M Administration Docusate Sodium 100 mg 07/08/21 21:01 Docusate Sodium 100 Mg Capsule PO DAILY PRN Constipation Ferrous Sulfate 324 mg 07/09/21 09:00 07/10/21 07:30 Ferrous Sulfate 324 Mg Tablet. PO 324 mg DAILY VICTOR M Administration Heparin Sodium (Porcine) 5,000 unit 07/08/21 22:00 07/09/21 21:56 Heparin Sodium,Porcine 5,000 Unit/Ml Vial SUBCUT 5,000 unit Q12H VICTOR M Administration Ceftriaxone Sodium 1 gm/ 50 mls @ 100 mls/hr 07/08/21 22:00 07/09/21 22:47 Sodium Chloride IV Infused Q24H VICTOR M Infusion Lactated Ringer's 1,000 mls @ 80 mls/hr 07/08/21 21:01 07/10/21 02:49 Lr IVCONT 80 mls/hr .[id number] VICTOR M Administration Doxycycline Hyclate 100 mg/ 250 mls @ 166.67 mls/hr 07/09/21 07:45 07/10/21 07:30 Sodium Chloride IV 166.67 mls/hr Q12H VICTOR M Administration Melatonin 6 mg 07/10/21 00:55 07/10/21 02:48 Melatonin 3 Mg Tablet PO 6 mg BEDTIME PRN Administration Insomnia Metronidazole 500 mg 07/09/21 07:45 07/10/21 07:30 Metronidazole 500 Mg Tablet PO 500 mg Q12H VICTOR M Administration Morphine Sulfate 4 mg 07/08/21 21:01 07/10/21 07:30 Morphine Sulfate 4 Mg/Ml Cartridge IVPUSH 4 mg Q4H PRN Administration Pain, Severe (Pain Scale 7-10) Protocol Ondansetron HCl 4 mg 07/08/21 21:01 07/10/21 07:38 Ondansetron Hcl 4 Mg/2 Ml Vial IVPUSH 4 mg Q8H PRN Administration Nausea and Vomiting Phenazopyridine HCl 100 mg 07/09/21 08:00 07/10/21 07:31 Phenazopyridine Hcl 100 Mg Tablet PO 100 mg TIDWM VICTOR M Administration Sodium Chloride 3 ml 07/09/21 00:00 07/10/21 07:30 0.9 % Sodium Chloride Flush 3 Ml Syringe IVFLUSH 3 ml QSHIFT VICTOR M Administration ASSISTANT PRESS 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 OFFSET Physical Exam Vitals Vital signs: Temp Pulse Resp BP Pulse Ox 97.4 F 73 16 158/91 H 100 07/10/21 07:37 07/10/21 07:37 07/10/21 07:37 08/30/21 07:37 07/10/21 07:37 Body Mass Index 25.7 Constitutional General Appearance: Healthy appearing, Well-nourished and Well-developed Psychiatric Mood and Affect: active and alert, normal mood and normal affect Skin Appearance: No rashes and No lesions Lungs Respiratory Effort: No intercostal retractions Auscultation: Clear to auscultation Cardiovascular Auscultation: RRR Abdomen Auscultation/Inspection/Palpation: Normal bowel sounds, Soft, Non-distended and No tenderness Female Genitalia (Pelvic) Vulva: No lesions Vagina: Nontender, No erythema and Abnormal discharge (Whitish discharge) Cervix: Grossly normal and Cervical motion tenderness Uterus: Normal size, Mobile and Tender Adnexa/Parametria: Adnexal Tenderness: Bilateral ASSISTANT PRESS 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 Keep on ceftriaxone 1 g Q 24 and doxycycline 100 mg IV q.12 with metronidazole 100 mg p.o. b.i.d. till clinical improvement then the patient can be discharged home on p.o. doxycycline 100 mg p.o. b.i.d. with Flagyl 500 mg p.o. b.i.d. for 14 days and follow up in the office Clinical scenario could be consistent with PID , given abdominal tenderness positive cervical motion tenderness, uterine and adnexal tenderness. Will check BV panel and treat accordingly. (2) Complex ovarian cyst: Status: Acute Discussed with the patient the complex ovarian cyst by ultrasound. ?Discussed with the patient the Ultrasound findings, the main limitation of transvaginal ultrasonography alone as a diagnostic tool to distinguish benign from malignant masses relates to its lack of specificity and low positive predictive value for cancer. The differential diagnosis discussed with the patient includes the following but not limited to: benign and malignant gynecological and non-gynecological causes. Laboratory evaluation include UPT and GC/CT , serum tumor marker CA 125. Discussed with the patient that CA 125 is a protein associated with epithelial ovarian malignancies, but also frequently expressed at lower levels by nonmalignant tissue. Elevation of CA 125 levels may occur in nonmalignant gynecologic conditions, and in non-gynecologic cancers, It is most useful in postmenopausal women and in identifying non mucinous epithelial cancer. The CA 125 level is elevated in 80% of patients with epithelial ovarian cancer but in only 50% of patients with stage I disease. The overall sensitivity of CA 125 testing in distinguishing benign from malignant adnexal masses reportedly ranges from 61% to 90%; specificity ranges from 71% to 93%, positive predictive value ranges from 35% to 91%, and negative predictive value ranges from 67% to 90%. Discussed with the patient options of treatment , in case CA 125 is not elevated, including laparoscopy ovarian cystectomy/oophorectomy vs. expectant management with repeat US in repeating pelvic US in 6-12 weeks from previous US. If the ovarian complex cyst is persistent larger and / or more complex looking, or higher CA 125 will refer to gynecologic Oncology. All pros, cons, risks and benefits of each approach were discussed with the patient? including but not limited to a delay in the di agnosis and treatment of ovarian cancer affecting the prognosis; ?The patient decided to go ahead with expectant management will schedule the patient in 2 weeks in the office, order CA 125 and schedule a follow-up ultrasound and a follow-up appointment in the office in 3 months. All questions were answered & the patient verbalized understanding and agreed with the plan.
--- NOTE | 2021-07-10 11:27 | HO.PM.IMPN ---
Subjective Subjective Date of Service: 07/10/21 Interval History: F/u on readmission for nausea/vomiting/suprapubic pain, vaginal discharge and concern for STD Review of Systems Gen: no fever Resp: no sob, no cough CV: no chest, no HEBERT, no leg edema GI: No n/v, no abd pain Neuro: No confusion Physical Exam Vital Signs: Vital Signs: Last Vital Signs Temp 97.4 F 07/10/21 07:37 Pulse 73 07/10/21 07:37 Resp 16 07/10/21 07:37 BP 158/91 H 07/10/21 07:37 Pulse Ox 100 07/10/21 07:37 Body Mass Index 25.7 Gen: in no acute distress HEENT: sclera anicteric, moist mucus membranes Neck: supple Lungs: clear to auscultation bilaterally Heart: regular rate and rhythm, no murmurs Abd: soft, non-tender, non-distended, suprapubic tenderness, Paperboard Boxes Estimator exam deffered to Dr. Palacios Ext: no edema Skin: warm/well-perfused Neuro: alert and oriented x3, no focal findings Psych: appropriate affect Objective Data Current Medications Generic Name Dose Route Start Last Admin Trade Name Freq PRN Reason Stop Dose Admin Acetaminophen 650 mg 07/08/21 21:01 Acetaminophen 325 Mg Tablet PO Q6H PRN Pain, Mild (Pain Scale 1-3) Ascorbic Acid 1,000 mg 07/09/21 09:00 07/10/21 07:30 Ascorbic Acid 500 Mg Tablet PO 1,000 mg DAILY VICTOR M Administration Docusate Sodium 100 mg 07/08/21 21:01 Docusate Sodium 100 Mg Capsule PO DAILY PRN Constipation Ferrous Sulfate 324 mg 07/09/21 09:00 07/10/21 07:30 Ferrous Sulfate 324 Mg Tablet. PO 324 mg DAILY VICTOR M Administration Heparin Sodium (Porcine) 5,000 unit 07/08/21 22:00 07/09/21 21:56 Heparin Sodium,Porcine 5,000 Unit/Ml Vial SUBCUT 5,000 unit Q12H VICTOR M Administration Ceftriaxone Sodium 1 gm/ 50 mls @ 100 mls/hr 07/08/21 22:00 07/09/21 22:47 Sodium Chloride IV Infused Q24H VICTOR M Infusion Lactated Ringer's 1,000 mls @ 80 mls/hr 07/08/21 21:01 07/10/21 02:49 Lr IVCONT 80 mls/hr .[id number] VICTOR M Administration Doxycycline Hyclate 100 mg/ 250 mls @ 166.67 mls/hr 07/09/21 07:45 07/10/21 09:20 Sodium Chloride IV Infused Q12H VICTOR M Infusion Melatonin 6 mg 07/10/21 00:55 07/10/21 02:48 Melatonin 3 Mg Tablet PO 6 mg BEDTIME PRN Administration Insomnia Metronidazole 500 mg 07/09/21 07:45 07/10/21 07:30 Metronidazole 500 Mg Tablet PO 500 mg Q12H VICTOR M Administration Morphine Sulfate 4 mg 07/08/21 21:01 07/10/21 07:30 Morphine Sulfate 4 Mg/Ml Cartridge IVPUSH 4 mg Q4H PRN Administration Pain, Severe (Pain Scale 7-10) Protocol Ondansetron HCl 4 mg 07/08/21 21:01 07/10/21 07:38 Ondansetron Hcl 4 Mg/2 Ml Vial IVPUSH 4 mg Q8H PRN Administration Nausea and Vomiting Phenazopyridine HCl 100 mg 07/09/21 08:00 07/10/21 07:31 Phenazopyridine Hcl 100 Mg Tablet PO 100 mg TIDWM VICTOR M Administration Sodium Chloride 3 ml 07/09/21 00:00 07/10/21 07:30 0.9 % Sodium Chloride Flush 3 Ml Syringe IVFLUSH 3 ml QSHIFT VICTOR M Administration Labs CBC & Chem 7: 07/09/21 06:56 07/10/21 06:15 Labs: Laboratory Results - last 24 hr 07/09/21 07/10/21 07/10/21 11:30 06:15 06:15 Anion Gap 14 Estim Creat Clear Calc 98.2 Estimated GFR > 60 Random Glucose 78 Calcium 8.4 T.pallidum Ab (EIA) Nonreactive Chlam trachomat DNA PCR NOT DETECTED N.gonorrhoeae DNA (PCR) NOT DETECTED Microbiology Microbiology Results: Microbiology 07/08/21 15:41 Blood Culture - Preliminary Blood - Venous Streptococcus viridans group 07/08/21 16:06 Blood Culture - Preliminary Blood - Venous No growth after 24 hours. Assessment and Plan (1) Vaginal discharge: Status: Acute Assessment and Plan: hospital d#3 41yo F with frequent UTI/pyelonephritis, frequent THC use, hx PID; admitted 07/07-07/08/21 for suspected UTI with N/V, readmitted 07/08/21 for recurrent/persistent symptoms but now with vaginal discharge # UTI vs PID - ceftriaxone d#3, follow UCx. check GC/CT + BV swab. 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 will treat as for PID by adding doxycycline and metronidazole d#2 - IV fluids, ondansetron, morphine. PLATE SHOP HELPER eval by Dr. Baez: 1-PID Keep on IV ceftriaxone, doxy and flagyl till pain resolves then dc home on po flagyl and doxy for 14 days and fu in our office 2-complex ov cyst Will follow up with ordering Ca125 in 2 wks as outpatient and repeat US in 3 months 3- recent h/o Trichomonas BV panel Collected if positive will need to be treated # ?bacteremia--Culture Strep Viridan group - 1/2 BCx pos for GPCs but suspect contaminant; prior BCx were negative; follow up results. ID consult # anemia - Fe supplementation # VTE ppx - UFH Quality Stroke Does the patient have a stroke diagnosis?: No VTE Prior VTE?: No VTE Risk Level:: Medical - moderate - high VTE Device Contraindication: Treatment Not Indicated VTE Drug Contraindication: N/A - Med Ordered
[2021-07-10] MEDS: Heparin Sodium,Porcine 5,000 UNIT/ML VIAL 5000 UNIT SUBCUT ×2 (11:46→20:20)
--- NOTE | 2021-07-10 11:52 | MHC.CLN ---
NUTRITION PATIENT WITH HX OF CYCLIC VOMITING. WEIGHT LOSS X 6 MONTHS=-9.1%. REPORTS THAT WEIGHT LOSS DUE TO EPISODES OF VOMITING. PLEASED WITH CURRENT WEIGHT.
--- NOTE | 2021-07-10 15:04 | P.CNID_ITS ---
History of Present Illness Data of Consult Service Date: 07/10/21 Requesting physician: Bobby Mckinney Primary Care Provider: Navi Real MD HPI Reason for consult: bacteremia She presents with nausea and vomiting for a day She had presented 07/07 with dysuria and flank pain and urine culture negative She has no fever or chills She has been discharged with Levaquin and taking She has no rash Blood culture one of two strep viridans Review of Systems Review of Systems: Yes all other systems are reviewed and are negative PMF Past Medical History Medical History Abdominal pain Abscess Acidosis, lactic Bacteremia Cocaine abuse Complicated UTI (urinary tract infection) Cyclical vomiting Hidradenitis suppurativa Hypokalemia Hypothyroidism Intractable vomiting Marijuana abuse Opioid abuse Pelvic inflammatory disease Pyelonephritis Pyelonephritis UTI (urinary tract infection) Vomiting Family History Family History Mother CVD (cardiovascular disease) HTN (hypertension) Maternal Grandmother High cholesterol HTN (hypertension) Maternal Grandfather Prostate cancer Other Heart disease Surgical History Surgical History Tubal ligation status Social History Social History Household Members: Family Housing: Apartment Do you presently have visiting nurse or other home services: No Alcohol intake: never Patient Tobacco Use Status: Current someday Tobacco user Tobacco use type: Cigarette Cigarettes Per Day: 4 Years Smoked: 20 e-Cigarette/Vaping Use: Never Used Second Hand Smoke Exposure: No Substance Use Type: Marijuana Advance Directives Date on File: 01/02/21 service: No Current occupational status: employed Meds Allergies Allergy/AdvReac Type Severity Reaction Status Date / Time amoxicillin [Amoxicillin] Allergy Intermediate HIVES Verified 07/08/21 15:11 tramadol AdvReac Intermediate SOB Verified 07/08/21 15:11 Active Medications: Current Medications Generic Name Dose Route Start Last Admin Trade Name Freq PRN Reason Stop Dose Admin Acetaminophen 650 mg 07/08/21 21:01 Acetaminophen 325 Mg Tablet PO Q6H PRN Pain, Mild (Pain Scale 1-3) Ascorbic Acid 1,000 mg 07/09/21 09:00 07/10/21 07:30 Ascorbic Acid 500 Mg Tablet PO 1,000 mg DAILY VICTOR M Administration Docusate Sodium 100 mg 07/08/21 21:01 Docusate Sodium 100 Mg Capsule PO DAILY PRN Constipation Ferrous Sulfate 324 mg 07/09/21 09:00 07/10/21 07:30 Ferrous Sulfate 324 Mg Tablet. PO 324 mg DAILY VICTOR M Administration Heparin Sodium (Porcine) 5,000 unit 07/08/21 22:00 07/10/21 11:46 Heparin Sodium,Porcine 5,000 Unit/Ml Vial SUBCUT 5,000 unit Q12H VICTOR M Administration Ceftriaxone Sodium 1 gm/ 50 mls @ 100 mls/hr 07/08/21 22:00 07/09/21 22:47 Sodium Chloride IV Infused Q24H VICTOR M Infusion Lactated Ringer's 1,000 mls @ 80 mls/hr 07/08/21 21:01 07/10/21 13:27 Lr IVCONT Not Given .[id number] [facility] Doxycycline Hyclate 100 mg/ 250 mls @ 166.67 mls/hr 07/09/21 07:45 07/10/21 09:20 Sodium Chloride IV Infused Q12H VICTOR M Infusion Melatonin 6 mg 07/10/21 00:55 07/10/21 02:48 Melatonin 3 Mg Tablet PO 6 mg BEDTIME PRN Administration Insomnia Metronidazole 500 mg 07/09/21 07:45 07/10/21 07:30 Metronidazole 500 Mg Tablet PO 500 mg Q12H VICTOR M Administration Morphine Sulfate 4 mg 07/08/21 21:01 07/10/21 11:46 Morphine Sulfate 4 Mg/Ml Cartridge IVPUSH 4 mg Q4H PRN Administration Pain, Severe (Pain Scale 7-10) Protocol Ondansetron HCl 4 mg 07/08/21 21:01 07/10/21 07:38 Ondansetron Hcl 4 Mg/2 Ml Vial IVPUSH 4 mg Q8H PRN Administration Nausea and Vomiting Phenazopyridine HCl 100 mg 07/09/21 08:00 07/10/21 11:46 Phenazopyridine Hcl 100 Mg Tablet PO 100 mg TIDWM VICTOR M Administration Sodium Chloride 3 ml 07/09/21 00:00 07/10/21 07:30 0.9 % Sodium Chloride Flush 3 Ml Syringe IVFLUSH 3 ml QSHIFT VICTOR M Administration Home Medications Medication Instructions Recorded Confirmed Last Taken Type methenamine hippurate 1 gram tablet 1 tab PO DAILY 07/25/21 08/07/21 07/24/21 History ibuprofen 800 mg tablet 1 tab PO Q8H PRN 08/07/21 08/07/21 Unknown History Physical Exam Vital Signs: Vital Signs: Last Vital Signs Temp 97.1 F 07/10/21 12:00 Pulse 68 07/10/21 12:00 Resp 16 07/10/21 12:00 BP 134/81 07/10/21 12:00 Pulse Ox 100 07/10/21 12:00 Body Mass Index 25.7 Const: General: cooperative Nutritional Appearance: average body habitus HENMT: Head: Yes normal to inspection Mouth: Normal oral and palatal mucosa present Eyes: General: appearance normal, both eyes and all related structures Resp: Effort & Inspection: normal respiratory effort Cardio: Rate: regular rate Rhythm: regular rhythm GI: Palpation (GI): Soft to palpation and nontender : General: No CVA tenderness and Yes no CVA tenderness Back/Spine/Pelvis: Back: no CVA tenderness and No CVA tenderness Skin: General skin exam: no rashes or lesions noted Results Labs CBC & Chem 7: 07/09/21 06:56 07/10/21 06:15 Labs: BMP 07/10/21 06:15 Sodium 137 Potassium 3.6 Chloride 104 Carbon Dioxide 23 BUN 8 L Creatinine 0.70 Calcium 8.4 Microbiology Microbiology Results: Microbiology 07/08/21 15:41 Blood - Venous Blood Culture - Preliminary Streptococcus viridans group 07/08/21 16:06 Blood - Venous Blood Culture - Preliminary No growth after 24 hours. Assessment and Plan (1) Complex ovarian cyst: Status: Acute (2) Pelvic inflammatory disease: Status: Resolved Prior PID ,treated (3) Bacteremia: Status: Resolved Strep viridans is likely contaminant She has no fever or leukocytosis and has had Levaquin Suggest Hydration and hold Ceftriaxone IM Ceftriaxone 250 mg and po Doxycycline when can take well for 10 days cover PID
[2021-07-10 15:15] LABS: BV Int Neg Control Negative (Negative); BV Int Pos Control Positive (Positive)
[2021-07-10] MEDS: cefTRIAXone sodium 500 MG VIAL IM (16:20)
[2021-07-11] MEDS: Morphine Sulfate 4 MG/ML CARTRIDGE IVPUSH ×3 (00:31→08:41)
[2021-07-11 03:37] VITALS: BP 126/77; PULSE 71; RESP 16; TEMP 36.6; O2SAT 100
[2021-07-11] MEDS: Lactated Ringers 1,000 ML 80 ML IVCONT (04:42)
[2021-07-11 07:17] VITALS: BP 137/71; PULSE 70; RESP 18; TEMP 36.2; O2SAT 100
[2021-07-11] MEDS: Phenazopyridine HCL 100 MG TABLET PO (08:00)
[2021-07-11] MEDS: metroNIDAZOLE 500 MG TABLET PO (08:00)
[2021-07-11] MEDS: Ascorbic Acid 500 MG TABLET 1000 MG PO (08:00)
[2021-07-11] MEDS: Ferrous Sulfate 324 MG TABLET.DR PO (08:01)
--- NOTE | 2021-07-11 09:05 | MHC.CM.PN ---
PT DISCHARGING HOME SELF-,PER ID NOTE PT WILL D/C ON DOXYCYCLINE BID X10 DAYS, PT TO ARRANGE TRANSPORT.
--- NOTE | 2021-07-11 10:20 | P.DS_ITS ---
DS: Providers Provider Date of Service: 07/11/21 Date of admission: 07/08/21 20:58 Primary care physician: Navi Real MD Consults: 07/09/21 11:03 Consult to Obstetrics / Gynecology Routine Consulting Provider: [facility] Reason for consultation: ?PID 07/10/21 11:33 Consult to Infectious Diseases Routine Consulting Provider: Gina Martinez Reason for consultation: Strep viridan bacteremia DS: Diagnosis Discharge Diagnosis (1) Complex ovarian cyst: Status: Acute (2) Pelvic inflammatory disease: Status: Resolved (3) Bacteremia: Status: Resolved DS: Summary Hospital Course Hospital Course: Chief Complaint: Nausea vomiting, suprapubic pain 41-year-old female with past medical history of frequent UTI pyelonephritis, cyclic vomiting syndrome returns to the hospital after being managed for UTI and discharge in a.m. stating that she has had recurrent nausea and vomiting, inability to keep anything down, and severe pain in the suprapubic region as well as flank pain.? Reports that she also has sweats, shaking, and had discharge from the vaginal region. Patient denies chest pain, no shortness of breath, no headache or change in vision, no lower extremity edema, no numbness tingling. Vitals reviewed showed no abnormality Labs significant for WBC count of 8.5, otherwise unremarkable.? UA is positive for leukocyte Estrace, nitrites, and some WBC.? Patient has significant flank and suprapubic pain, and therefore will undergo CT scan of the abdomen and admitted for further management. Hospital course: 41yo F with frequent UTI/pyelonephritis, frequent THC use, hx PID; admitted 07/07-07/08/21 for suspected UTI with N/V, readmitted 07/08/21 for recurrent/persistent symptoms but now with vaginal discharge # UTI vs PID--treated with ceftriaxone for 3 days. Urine cultures are negative but it is of note that she was previously treated with Levaquin. She then started having vaginal discharge so was seen by [employer] and had vaginal exam with swab. GC/Chlaemedia positive but positive for yeast. Wass seen by [employer] with the following remarks and recommendation. . Zerbe:?1-PID Keep on IV ceftriaxone, doxy and flagyl till pain resolves then dc home on po flagyl and doxy for 14 days and fu in our office 2-complex ov cyst Will follow up with ordering Ca125 in 2 wks as outpatient and repeat US in 3 months 3- recent h/o Trichomonas BV panel Collected if positive will need to be treated. Patient was also seen by Dr. Juan CADET and suggest IV Ceftriaxone 500 mg x 1 (given), and Doxycyline for 10 days. She has received 1 dose of Diflucan 150. # ?bacteremia--Culture Strep Viridan group - 1/2 BCx pos for GPCs but suspect contaminant; prior BCx were negative; ID recommend no further treatment as likely contamination. # anemia--Iron supplementation Time Spent with Patient Time attestation: Total time spent providing and/or coordinating discharge services: Discharge coordination time: Greater than 30 minutes Quality: Stroke Does the patient have a stroke diagnosis?: No Physical Exam Vital Signs: Vital Signs: Last Vital Signs Temp 97.2 F 07/11/21 07:17 Pulse 70 07/11/21 07:17 Resp 18 07/11/21 07:17 BP 137/71 07/11/21 07:17 Pulse Ox 100 07/11/21 07:17 Body Mass Index 25.7 DS: Data Data Completed and Pending Labs on day of discharge: Laboratory Results - last 24 hr 07/10/21 08:45 Luz species DNA Positive A Gardnerella DNA Probe Negative Trichomonas DNA Probe Negative Preliminary micro results at discharge 07/10/21 06:15 Blood Culture - Preliminary Blood - Venous No growth after 24 hours. 07/10/21 06:15 Blood Culture - Preliminary Blood - Venous No growth after 24 hours. 07/08/21 16:06 Blood Culture - Preliminary Blood - Venous No growth after 48 hours. 07/08/21 15:41 Blood Culture - Preliminary Blood - Venous Streptococcus viridans group Discharge Plan Discharge Anticipated Discharge Date/Time: 07/11/21 10:02 Patient Disposition: Home, Self-Care Discharge Diagnosis: PID Referrals: Navi Real MD [Primary Care Provider] - 1 Week Elton Baez MD [Physician] - 1 Week Discharge Medications: New oxycodone 5 mg tablet 5 mg PO Q6H PRN (Reason: pain) Qty: 10 RF: 0 metronidazole 500 mg Tablet 500 mg PO Q12H Qty: 22 RF: 0 doxycycline hyclate 100 mg Tablet 100 mg PO Q12H Qty: 22 RF: 0 Continued ascorbic acid (vitamin C) 1,000 mg tablet 1 g PO DAILY 90 Days Qty: 90 RF: 0 phenazopyridine 100 mg Tablet 100 mg PO TIDWM Qty: 6 RF: 0 ferrous sulfate 324 mg (65 mg iron) Tablet,Delayed Release (Dr/Ec) 324 mg PO DAILY Qty: 30 RF: 0 ibuprofen 800 mg tablet 1 tab PO Q8H PRN (Reason: pain) Qty: 60 RF: 1 nicotine (polacrilex) 2 mg gum 2 mg buccal Q1H Qty: 110 RF: 0 Discontinued levofloxacin 500 mg tablet 500 mg PO DAILY Qty: 4 RF: 0 Discharge Orders: Discharge Order (Routine); Ordered 07/11/21 Ordered By: Hebert Orr Diet: advance to usual diet Activity on Discharge: As tolerated Stand Alone Forms: Patient Portal Discharge page, Work/School Release Care Plan Goals: Full recovery from PID Health Concerns: PID Plan of Treatment: You have received antibioitics (Ceftriaxone, flagyl and Diflucan).. You need to finish taking Doxycline, follow up with your Doctor in a week Assessment: As above Discharge Date/Time: 07/11/21 10:57
[2021-07-11] MEDS: Fluconazole 150 MG TABLET PO (14:11)
== END 2021-07-11 10:57 | disposition home or self-care (01) | DRG 531 ==
LOC: HO.ED 18:05 → HO.EDOVER 21:21 → HO.S3 21:51
PROVIDERS: Family Medicine; Nurse Practitioner Family; Admitting Provider Internal Medicine; Emergency Provider Emergency Medicine; PCP Family Medicine; Visit Provider Internal Medicine
DX: N73.9 Female pelvic inflammatory disease, unspecified (principal); B37.3 Candidiasis of vulva and vagina; D64.9 Anemia, unspecified; E03.9 Hypothyroidism, unspecified; F17.210 Nicotine dependence, cigarettes, uncomplicated; N39.0 Urinary tract infection, site not specified; N83.291 Other ovarian cyst, right side; Z20.822 Contact with and (suspected) exposure to COVID-19; Z71.6 Tobacco abuse counseling; Z88.0 Allergy status to penicillin; Z88.5 Allergy status to narcotic agent; Z79.899 Other long term (current) drug therapy
CPT/HCPCS: 36415; 74177; 76830; 76856; 80048; 80076; 81001; 81025; 82947; 83605; 83735; 85007; 85025; 85027; 86140; 86780; 87040; 87147; 87205; 87480; 87491; 87510; 87591; 87635; 87660; 96361; 96365; 96375; 99285; J0696; J1200; J1885; J1956; J2060; J2270; J2405; J2765; Q9967

== ENCOUNTER 2021-07-24 09:21 | Observation (INO) | payer OTHER, SELFPAY ==
--- NOTE | ~2021-07-24 | US_ITS ---
EXAM: Pelvic Ultrasound CLINICAL INDICATION: Pelvic pain. Concern for torsion. COMPARISON: Pelvic ultrasound July 09, 2021 TECHNIQUE: The pelvis was evaluated using transabdominal and transvaginal imaging. Color Doppler imaging and spectral analysis of the bilateral ovaries was also performed. FINDINGS: The uterus measures 8.7 x 4.3 x 5.9 cm in longitudinal by AP by transverse dimension. The endometrial stripe is not thickened and measures 1.3 cm. The cervix measures approximately 3.4 cm in length. Nabothian cysts and an approximately 1.9 cm Papi's duct cyst of the vagina again noted. The left ovary measures approximately 3.7 x 2.8 x 3.2 cm and contains a simple appearing 2.2 cm cyst. The right ovary measures approximately 2.8 x 1.3 x 2.5 cm and is normal. Spectral analysis reveals normal arterial and venous waveforms in the bilateral ovaries. There is a small amount of free fluid in the pelvis. US/US pelvic and transvaginal IMPRESSION: -Both ovaries demonstrate normal arterial and venous waveforms.
--- NOTE | ~2021-07-24 | US_ITS ---
EXAMINATION: US RETROPERITONEAL LIMITED (RENAL ONLY) CLINICAL INFORMATION: Flank pain. Question kidney stone. COMPARISON: CT abdomen pelvis July 08, 2021 and renal ultrasound March 21, 2021 TECHNIQUE: Grayscale and color Doppler imaging of the kidneys was obtained. FINDINGS: RIGHT KIDNEY: 10.9 x 6.1 x 5.3 cm (SAG x AP x TRV). The kidney is normal in size, contour, and echogenicity. Renal cortical thickness is normal. No calculi or focal parenchymal lesions. No hydronephrosis. LEFT KIDNEY: 11.3 x 5.5 x 5.4 cm (SAG x AP x TRV). The kidney is normal in size, contour, and echogenicity. Renal cortical thickness is normal. No calculi or focal parenchymal lesions. No hydronephrosis. US/US renal BI IMPRESSION: No renal calculi or hydronephrosis of either kidney.
--- NOTE | ~2021-07-24 | US_ITS ---
EXAM: Pelvic Ultrasound CLINICAL INDICATION: Pelvic pain. Concern for torsion. COMPARISON: Pelvic ultrasound July 09, 2021 TECHNIQUE: The pelvis was evaluated using transabdominal and transvaginal imaging. Color Doppler imaging and spectral analysis of the bilateral ovaries was also performed. FINDINGS: The uterus measures 8.7 x 4.3 x 5.9 cm in longitudinal by AP by transverse dimension. The endometrial stripe is not thickened and measures 1.3 cm. The cervix measures approximately 3.4 cm in length. Nabothian cysts and an approximately 1.9 cm Papi's duct cyst of the vagina again noted. The left ovary measures approximately 3.7 x 2.8 x 3.2 cm and contains a simple appearing 2.2 cm cyst. The right ovary measures approximately 2.8 x 1.3 x 2.5 cm and is normal. Spectral analysis reveals normal arterial and venous waveforms in the bilateral ovaries. There is a small amount of free fluid in the pelvis. US/US pelvic ovarian doppler IMPRESSION: -Both ovaries demonstrate normal arterial and venous waveforms.
[2021-07-24 09:33] VITALS: BP 156/98; PULSE 80; O2SAT 98
[2021-07-24 10:44] VITALS: BP 145/69; PULSE 98; RESP 18; TEMP 37.2; O2SAT 96; BMI 26.6
[2021-07-24] MEDS: Ondansetron ODT 4 MG TAB.RAPDIS TRANSLINGU (13:24)
--- NOTE | 2021-07-24 13:35 | ED_ITS ---
HPI - Abdominal Pain General Chief Complaint: Nausea/Vomiting/Diarrhea Stated Complaint: LOW ABD PAIN, HX OF FREQUENT UTI, ? UTI Time Seen by Provider: 07/24/21 13:21 Related Data Home Medications Medication Instructions Recorded Confirmed methenamine hippurate 1 gram tablet 1 tab PO DAILY 07/25/21 07/25/21 oxycodone 5 mg tablet 1 tab PO Q6H PRN 07/25/21 07/25/21 Previous Rx's Medication Instructions Recorded ascorbic acid (vitamin C) 1,000 mg 1 g PO DAILY 90 Days #90 tab NS 05/11/21 tablet ferrous sulfate 324 mg (65 mg 324 mg PO DAILY #30 tab 07/08/21 iron) tablet,delayed release ibuprofen 800 mg tablet 1 tab PO Q8H PRN #60 tab 07/08/21 nicotine (polacrilex) 2 mg gum 2 mg BUCCAL Q1H #110 ea 07/08/21 doxycycline hyclate 100 mg tablet 100 mg PO Q12H #22 tab 07/11/21 metronidazole 500 mg tablet 500 mg PO Q12H #22 tab 07/11/21 Allergies Allergy/AdvReac Type Severity Reaction Status Date / Time amoxicillin [Amoxicillin] Allergy Intermediate HIVES Verified 07/08/21 15:11 tramadol AdvReac Intermediate SOB Verified 07/08/21 15:11 Physical Exam Vital Signs: Vital Signs: Last Vital Signs Temp 98.2 F 07/25/21 15:39 Pulse 79 07/25/21 15:39 Resp 19 07/25/21 15:39 BP 132/81 07/25/21 15:39 Pulse Ox 100 07/25/21 15:39 Body Mass Index 26.6 Course Course Course Narrative: 12pm - 41-year-old female presenting to the ED with complaints of nausea/vomiting with associated lower abdominal pain radiating to her lower back with associated dysuria. On exam patient is alert oriented x3. Not in any acute distress. Although she is actively vomiting in triage. She was given Zofran. She has mild tenderness up patient to lower abdomen. No CVA tenderness is noted on my exam. Patient is safe to go back to the waiting room at this time. Labs and UA ord ered at this time. MDM - Abdominal Pain Lab Data Result diagrams: 07/25/21 07:51 07/25/21 07:51 Labs: Lab Results 09/07/24/21 07/24/21 Range/Units 15:33 15:33 19:03 WBC 11.2 H (4.8-10.8) X10*3/uL RBC 4.27 (4.20-5.50) X10*6/uL Hgb 10.2 L (12.0-16.0) g/dl Hct 33.3 L (37-47) % MCV 78.0 L (80-98) fL MCH 23.9 L (27.0-33.0) pg MCHC 30.6 L (31.0-35.0) g/dl RDW 17.7 H (11.0-16.0) % Plt Count 301 D (160-400) X10*3/uL MPV 11.6 (9.4-12.3) fL Immature Gran % (Auto) 0.4 (0.0-0.4) % Neut % (Auto) 92.9 H (45-73) % Lymph % (Auto) 4.4 L (20-40) % Stanton % (Auto) 2.2 (2-11) % Eos % (Auto) 0.0 (0-4) % Baso % (Auto) 0.1 (0-2) % Lymph # (Auto) 0.5 L (1.2-4.9) X10*3/uL Stanton # (Auto) 0.3 (0.1-1.2) X10*3/uL Eos # (Auto) 0.0 (0.0-0.4) X10*3/uL Baso # (Auto) 0.0 (0.0-0.2) X10*3/uL Abs Immat Gran (auto) 0.05 H (0.00-0.03) X10*3/uL Absolute Neuts (auto) 10.4 H (2.0-8.3) X10*3/uL Absolute Nucleated RBC 0.000 (0.0-0.012) X10*3/uL Nucleated RBC % (auto) 0.0 (0.0-0.2) /100WBC Smear Tech's Comments VERIFIED Sodium 138 (135-145) mmol/L Potassium 4.3 (3.3-5.1) mmol/L Chloride 107 (96-108) mmol/L Carbon Dioxide 22 (22-29) mmol/L Anion Gap 13 (12-20) BUN 11 (9-16) mg/dL Creatinine 0.75 (0.5-1.4) mg/dL Estim Creat Clear Calc 93.0 Estimated GFR > 60 Random Glucose 108 (60-115) mg/dL Calcium 9.9 D (8.4-10.2) mg/dL Total Bilirubin 0.7 (0.0-1.0) mg/dL AST 20 (5-31) U/L ALT 18 (0-31) U/L Alkaline Phosphatase 59 (39-117) U/L Total Protein 8.5 H (6.5-8.0) g/dL Albumin 4.6 (3.5-5.0) g/dL Beta HCG, Quant < 2 mIU/mL Urine Color Urine Appearance Urine pH (5.0-8.0) Ur Specific [place] (1.005-1.025) Urine Protein (NEG-TRACE) MG/DL Urine Glucose (UA) (NEG) MG/DL Urine Ketones (NEG) MG/DL Urine Blood (NEG) Urine Nitrite (NEG) Ur Leukocyte Esterase (NEG) Urine Test NEGATIVE (NEGATIVE) Luz species DNA (Negative) Chlam trachomat DNA PCR (Not Detect.) Gardnerella DNA Probe (Negative) N.gonorrhoeae DNA (PCR) (Not Detect.) Trichomonas DNA Probe (Negative) 07/24/21 07/24/21 07/24/21 Range/Units 19:03 23:07 23:07 WBC (4.8-10.8) X10*3/uL RBC (4.20-5.50) X10*6/uL Hgb (12.0-16.0) g/dl Hct (37-47) % MCV (80-98) fL MCH (27.0-33.0) pg MCHC (31.0-35.0) g/dl RDW (11.0-16.0) % Plt Count (160-400) X10*3/uL MPV (9.4-12.3) fL Immature Gran % (Auto) (0.0-0.4) % Neut % (Auto) (45-73) % Lymph % (Auto) (20-40) % Stanton % (Auto) (2-11) % Eos % (Auto) (0-4) % Baso % (Auto) (0-2) % Lymph # (Auto) (1.2-4.9) X10*3/uL Stanton # (Auto) (0.1-1.2) X10*3/uL Eos # (Auto) (0.0-0.4) X10*3/uL Baso # (Auto) (0.0-0.2) X10*3/uL Abs Immat Gran (auto) (0.00-0.03) X10*3/uL Absolute Neuts (auto) (2.0-8.3) X10*3/uL Absolute Nucleated RBC (0.0-0.012) X10*3/uL Nucleated RBC % (auto) (0.0-0.2) /100WBC Smear Tech's Comments Sodium (135-145) mmol/L Potassium (3.3-5.1) mmol/L Chloride (96-108) mmol/L Carbon Dioxide (22-29) mmol/L Anion Gap (12-20) BUN (9-16) mg/dL Creatinine (0.5-1.4) mg/dL Estim Creat Clear Calc Estimated GFR Random Glucose (60-115) mg/dL Calcium (8.4-10.2) mg/dL Total Bilirubin (0.0-1.0) mg/dL AST (5-31) U/L ALT (0-31) U/L Alkaline Phosphatase (39-117) U/L Total Protein (6.5-8.0) g/dL Albumin (3.5-5.0) g/dL Beta HCG, Quant mIU/mL Urine Color YELLOW Urine Appearance CLOUDY Urine pH 8.5 H (5.0-8.0) Ur Specific [place] 1.020 (1.005-1.025) Urine Protein TRACE (NEG-TRACE) MG/DL Urine Glucose (UA) NEG (NEG) MG/DL Urine Ketones 40 (NEG) MG/DL Urine Blood NEG (NEG) Urine Nitrite NEG (NEG) Ur Leukocyte Esterase NEG (NEG) Urine Test (NEGATIVE) Luz species DNA Positive A (Negative) Chlam trachomat DNA PCR NOT DETECTED (Not Detect.) Gardnerella DNA Probe Negative (Negative) N.gonorrhoeae DNA (PCR) NOT DETECTED (Not Detect.) Trichomonas DNA Probe Negative (Negative) Discharge Plan Discharge Clinical Impression: Intractable vomiting Patient Disposition: Admitted As Inpatient Discharge Date/Time: 07/25/21 07:36 [facility] Past Medical History Medical History (Updated 07/25/21 @ 01:26 by RAMONE Reyes) Abdominal pain Abscess Acidosis, lactic Bacteremia Cocaine abuse Complicated UTI (urinary tract infection) Cyclical vomiting Hidradenitis suppurativa Hypokalemia Hypothyroidism Marijuana abuse Opioid abuse Pelvic inflammatory disease Pyelonephritis Pyelonephritis UTI (urinary tract infection) Vomiting Surgical History Tubal ligation status Family History Family History Mother CVD (cardiovascular disease) HTN (hypertension) Maternal Grandmother High cholesterol HTN (hypertension) Maternal Grandfather Prostate cancer Other Heart disease Social History Social History Household Members: Family Housing: Apartment Do you presently have visiting nurse or other home services: No Alcohol intake: never Patient Tobacco Use Status: Current everyday Tobacco user Tobacco use type: Cigarette Cigarettes Per Day: 4 Years Smoked: 20 e-Cigarette/Vaping Use: Never Used Patient Interested in Nicotine Replacement: No Second Hand Smoke Exposure: No Use of substances other than those prescribed or required for medical reasons: Yes Substance Use Type: Marijuana Substance Use Frequency: Occasionally Last Used Substance: Just Prior to Admission Currently Displaying Signs/Symptoms of Drug Intoxication Withdrawal: No Any prior treatment program specific to substance use: No Have you been hit, kicked, punched, or otherwise hurt by someone within the past year? If so, by whom?: No Is there a partner from a previous relationship who is making you feel unsafe now?: No Are you made to feel afraid or neglected: No Advance Directives: Yes Advance Directives on File: Yes Advance Directives Date on File: 01/02/21 Do you have thoughts of harming others: None Do you have a plan to hurt others: No Plan Nutrition Risks: No Nutritional Risk Patient : No : No Poor oral hygiene: No service: No Current occupational status: employed
[2021-07-24 15:42] LABS: Imm Gran Pct Auto 0.4 % (0.0-0.4); Mean Platelet Volume 11.6 fL (9.4-12.3); Red Cell Distribution Width 17.7 % (11.0-16.0); SCAN SMEAR FLAG 1; WBC ABN SCTR 1
[2021-07-24 15:50] LABS: Basophils Percent Auto 0.1 % (0-2); Hematocrit 33.3 % (37-47); Hemoglobin 10.2 g/dl (12.0-16.0); Imm Gran Abs Auto 0.05 X10*3/uL (0.00-0.03); Lymphocytes Absolute Auto 0.5 X10*3/uL (1.2-4.9); Lymphocytes Percent Auto 4.4 % (20-40); Mean Corpuscular HGB Conc 30.6 g/dl (31.0-35.0); Mean Corpuscular Hemoglobin 23.9 pg (27.0-33.0); Monocytes Absolute Auto 0.3 X10*3/uL (0.1-1.2); Monocytes Percent Auto 2.2 % (2-11); Neutrophils Absolute Auto 10.4 X10*3/uL (2.0-8.3); Neutrophils Percent Auto 92.9 % (45-73); Platelet Count 301 X10*3/uL (160-400); Red Blood Count 4.27 X10*6/uL (4.20-5.50)
[2021-07-24 15:53] LABS: WBC ABN SCTR FOR CBC 1
[2021-07-24 15:56] LABS: MANUAL DIFF FLAG SCAN
[2021-07-24 15:59] LABS: Alanine Aminotransferase 18 U/L (0-31); Albumin Level 4.6 g/dL (3.5-5.0); Alkaline Phosphatase 59 U/L (39-117); Anion Gap 13 (12-20); Aspartate Amino Transferase 20 U/L (5-31); Bilirubin Total 0.7 mg/dL (0.0-1.0); Blood Urea Nitrogen 11 mg/dL (9-16); Calcium 9.9 mg/dL (8.4-10.2); Carbon Dioxide 22 mmol/L (22-29); Chloride 107 mmol/L (96-108); Estimated Glomerular Filt Rate > 60; Glucose Random 108 mg/dL (60-115); Potassium 4.3 mmol/L (3.3-5.1); Sodium 138 mmol/L (135-145); Total Protein 8.5 g/dL (6.5-8.0)
[2021-07-24 16:24] LABS: SLIDE REVIEW VERIFIED; White Blood Count 11.2 X10*3/uL (4.8-10.8)
[2021-07-24 17:27] VITALS: BP 167/86; PULSE 89; RESP 20; TEMP 36.1
--- NOTE | 2021-07-24 18:25 | ED.ABDPAIN ---
HPI - Abdominal Pain General Chief Complaint: Nausea/Vomiting/Diarrhea Stated Complaint: LOW ABD PAIN, HX OF FREQUENT UTI, ? UTI Time Seen by Provider: 07/24/21 13:21 Source: patient Mode of arrival: ambulatory Limitations: no limitations History of Present Illness HPI narrative: 41-year-old female history of cyclic vomiting chronic UTIs and intractable vomiting presents to ED for lower abdominal pain history of frequent UTIs. Patient has had admissions for intractable vomiting due to vomiting. Patient was admitted June for intractable vomiting. Patient has multiple normal abdominal CT scans this year. MD elicited complaint: abdominal pain Related Data Previous Rx's Medication Instructions Recorded ascorbic acid (vitamin C) 1,000 mg 1 g PO DAILY 90 Days #90 tab NS 05/11/21 tablet ferrous sulfate 324 mg (65 mg 324 mg PO DAILY #30 tab 07/08/21 iron) tablet,delayed release ibuprofen 800 mg tablet 1 tab PO Q8H PRN #60 tab 07/08/21 nicotine (polacrilex) 2 mg gum 2 mg BUCCAL Q1H #110 ea 07/08/21 phenazopyridine 100 mg tablet 100 mg PO TIDWM #6 tab 07/08/21 doxycycline hyclate 100 mg tablet 100 mg PO Q12H #22 tab 07/11/21 metronidazole 500 mg tablet 500 mg PO Q12H #22 tab 07/11/21 oxycodone 5 mg tablet 5 mg PO Q6H PRN #10 tab 07/11/21 Allergies Allergy/AdvReac Type Severity Reaction Status Date / Time amoxicillin [Amoxicillin] Allergy Intermediate HIVES Verified 07/08/21 15:11 tramadol AdvReac Intermediate SOB Verified 07/08/21 15:11 Review of Systems Review of Systems Yes all other systems are reviewed and are negative Constitutional: Reports as per HPI and Reports no additional constitutional complaints Eyes: Reports as per HPI and Reports no additional eye complaints Reports system reviewed and no additional complaints, except as documented and Reports as per HPI Cardiovascular: Reports as per HPI and Reports no additional cardiovascular complaints Respiratory: Reports as per HPI and Reports no additional respiratory complaints Gastrointestinal: Reports as per HPI, Reports no additional gastrointestinal complaints, Reports abdominal pain, Reports nausea and Reports vomiting Genitourinary: Reports no additional female genitourinary complaints and Reports as per HPI Musculoskeletal: Reports no additional musculoskeletal complaints and Reports as per HPI Reports system reviewed and no additional complaints, except as documented and Reports as per HPI Psychiatric: Reports no additional psychiatric complaints and Reports as per HPI Physical Exam Vital Signs: Vital Signs: Last Vital Signs Temp 96.9 F 07/24/21 17:27 Pulse 85 07/24/21 23:23 Resp 18 07/24/21 23:23 BP 93/50 L 07/24/21 23:23 Pulse Ox 99 07/24/21 23:23 Body Mass Index 26.6 Const: General: cooperative, healthy appearing, comfortable, no acute distress, well developed and acute distress Orientation/consciousness: patient oriented x3 HENMT: Head: Yes normal to inspection, Yes No palpable skull fracture present, Yes normocephalic and Yes atraumatic Eyes: General: appearance normal, both eyes and all related structures Neck: Neck: Yes normal visual inspection, Yes full ROM, Yes no lymphadenopathy, Yes no meningeal signs, Yes trachea midline, Yes supple and No tender Chest: Chest palpation & inspection: normal inspection of the chest and normal palpation of entire chest wall Resp: Effort & Inspection: normal respiratory effort and able to speak in complete sentences Auscultation: clear to auscultation bilaterally Cardio: Jugular venous distension: no JVD Heart sounds: S1 normal heart sound present and S2 normal heart sound present GI: Inspection: Yes normal to inspection and No abdominal wall ecchymosis Palpation (GI): Soft to palpation, not firm, Tenderness to palpation present (GI) in the LLQ and in the RLQ, no guarding and not rigid : Other: Negative for any vaginal lesions. Negative for any vaginal discharge or vaginal bleeding. Negative for any significant CMT. General: Yes CVA tenderness (Bilateral) External Female Exam: normal external appearance Back/Spine/Pelvis: Back: CVA tenderness (Bilateral) and No back tenderness Skin: General skin exam: no rashes or lesions noted and elasticity normal Neuro: General: patient oriented x3, gait normal, no meningeal signs and CN's II-XI intact bilaterally Cranial nerves: Yes CN's II-XII intact bilaterally Extrem: General: Yes normal to inspection and Yes full ROM Psych: Appearance: grossly normal, well kempt and not disheveled Course Course Course Narrative: Labs ordered. UA pending. Will give meds Reevaluation(s) Reevaluation #1: Labs are baseline. UA negative for UTI. Patient for bilateral flank ultrasound and pelvic ultrasound to rule out any torsion or tubo-ovarian abscess or kidney stones. CT scan not ordered due to multiple normal CT scans this year. Patient given pain medication. Nurse gave 2 L of IV fluid without orders. Time: 19:03 Reevaluation #2: Renal ultrasound came back negative for kidney stones for a pelvic ultrasound came back normal. Pelvic exam negative for any discharge. Patient continued to have multiple rounds of emesis after given nausea medications still stating pain. Patient failed p.o. challenge. Patient admitted to hospitalist for intractable vomiting. Case accepted by Dr. Herzog the hospitalist. Time: 01:23 MDM - Abdominal Pain MDM Narrative Medical decision making narrative: Intractable vomiting. Lab Data Result diagrams: 07/24/21 15:33 07/24/21 15:33 Labs: Lab Results 07/24/21 07/24/21 07/24/21 Range/Units 15:33 15:33 19:03 WBC 11.2 H (4.8-10.8) X10*3/uL RBC 4.27 (4.20-5.50) X10*6/uL Hgb 10.2 L (12.0-16.0) g/dl Hct 33.3 L (37-47) % MCV 78.0 L (80-98) fL MCH 23.9 L (27.0-33.0) pg MCHC 30.6 L (31.0-35.0) g/dl RDW 17.7 H (11.0-16.0) % Plt Count 301 D (160-400) X10*3/uL MPV 11.6 (9.4-12.3) fL Immature Gran % (Auto) 0.4 (0.0-0.4) % Neut % (Auto) 92.9 H (45-73) % Lymph % (Auto) 4.4 L (20-40) % [place] % (Auto) 2.2 (2-11) % Eos % (Auto) 0.0 (0-4) % Baso % (Auto) 0.1 (0-2) % Lymph # (Auto) 0.5 L (1.2-4.9) X10*3/uL [place]ayer # (Auto) 0.3 (0.1-1.2) X10*3/uL Eos # (Auto) 0.0 (0.0-0.4) X10*3/uL Baso # (Auto) 0.0 (0.0-0.2) X10*3/uL Abs Immat Gran (auto) 0.05 H (0.00-0.03) X10*3/uL Absolute Neuts (auto) 10.4 H (2.0-8.3) X10*3/uL Absolute Nucleated RBC 0.000 (0.0-0.012) X10*3/uL Nucleated RBC % (auto) 0.0 (0.0-0.2) /100WBC Smear Tech's Comments VERIFIED Sodium 138 (135-145) mmol/L Potassium 4.3 (3.3-5.1) mmol/L Chloride 107 (96-108) mmol/L Carbon Dioxide 22 (22-29) mmol/L Anion Gap 13 (12-20) BUN 11 (9-16) mg/dL Creatinine 0.75 (0.5-1.4) mg/dL Estim Creat Clear Calc 93.0 Estimated GFR > 60 Random Glucose 108 (60-115) mg/dL Calcium 9.9 D (8.4-10.2) mg/dL Total Bilirubin 0.7 (0.0-1.0) mg/dL AST 20 (5-31) U/L ALT 18 (0-31) U/L Alkaline Phosphatase 59 (39-117) U/L Total Protein 8.5 H (6.5-8.0) g/dL Albumin 4.6 (3.5-5.0) g/dL Beta HCG, Quant < 2 mIU/mL Urine Color Urine Appearance Urine pH (5.0-8.0) Ur Specific [place] (1.005-1.025) Urine Protein (NEG-TRACE) MG/DL Urine Glucose (UA) (NEG) MG/DL Urine Ketones (NEG) MG/DL Urine Blood (NEG) Urine Nitrite (NEG) Ur Leukocyte Esterase (NEG) Urine Test NEGATIVE (NEGATIVE) 07/24/21 Range/Units 19:03 WBC (4.8-10.8) X10*3/uL RBC (4.20-5.50) X10*6/uL Hgb (12.0-16.0) g/dl Hct (37-47) % MCV (80-98) fL MCH (27.0-33.0) pg MCHC (31.0-35.0) g/dl RDW (11.0-16.0) % Plt Count (160-400) X10*3/uL MPV (9.4-12.3) fL Immature Gran % (Auto) (0.0-0.4) % Neut % (Auto) (45-73) % Lymph % (Auto) (20-40) % [place] % (Auto) (2-11) % Eos % (Auto) (0-4) % Baso % (Auto) (0-2) % Lymph # (Auto) (1.2-4.9) X10*3/uL [place] # (Auto) (0.1-1.2) X10*3/uL Eos # (Auto) (0.0-0.4) X10*3/uL Baso # (Auto) (0.0-0.2) X10*3/uL Abs Immat Gran (auto) (0.00-0.03) X10*3/uL Absolute Neuts (auto) (2.0-8.3) X10*3/uL Absolute Nucleated RBC (0.0-0.012) X10*3/uL Nucleated RBC % (auto) (0.0-0.2) /100WBC Smear Tech's Comments Sodium (135-145) mmol/L Potassium (3.3-5.1) mmol/L Chloride (96-108) mmol/L Carbon Dioxide (22-29) mmol/L Anion Gap (12-20) BUN (9-16) mg/dL Creatinine (0.5-1.4) mg/dL Estim Creat Clear Calc Estimated GFR Random Glucose (60-115) mg/dL Calcium (8.4-10.2) mg/dL Total Bilirubin (0.0-1.0) mg/dL AST (5-31) U/L ALT (0-31) U/L Alkaline Phosphatase (39-117) U/L Total Protein (6.5-8.0) g/dL Albumin (3.5-5.0) g/dL Beta HCG, Quant mIU/mL Urine Color YELLOW Urine Appearance CLOUDY Urine pH 8.5 H (5.0-8.0) Ur Specific [place] 1.020 (1.005-1.025) Urine Protein TRACE (NEG-TRACE) MG/DL Urine Glucose (UA) NEG (NEG) MG/DL Urine Ketones 40 (NEG) MG/DL Urine Blood NEG (NEG) Urine Nitrite NEG (NEG) Ur Leukocyte Esterase NEG (NEG) Urine Test (NEGATIVE) Discharge Plan Discharge Clinical Impression: Intractable vomiting Patient Disposition: Admitted As Inpatient [facility] Past Medical History Medical History (Updated 07/25/21 @ 01:26 by RAMONE Reyes) Abdominal pain Abscess Acidosis, lactic Bacteremia Cocaine abuse Complicated UTI (urinary tract infection) Cyclical vomiting Hidradenitis suppurativa Hypokalemia Hypothyroidism Marijuana abuse Opioid abuse Pelvic inflammatory disease Pyelonephritis Pyelonephritis UTI (urinary tract infection) Vomiting Surgical History Tubal ligation status Family History Family History Mother CVD (cardiovascular disease) HTN (hypertension) Maternal Grandmother High cholesterol HTN (hypertension) Maternal Grandfather Prostate cancer Other Heart disease Social History Social History Household Members: Family Housing: Apartment Do you presently have visiting nurse or other home services: No Alcohol intake: never Patient Tobacco Use Status: Current everyday Tobacco user Tobacco use type: Cigarette Cigarettes Per Day: 4 Years Smoked: 20 Second Hand Smoke Exposure: No Substance Use Type: Marijuana Advance Directives: Yes Advance Directives on File: Yes Advance Directives Date on File: 01/02/21 Patient : No service: No Current occupational status: employed
[2021-07-24 18:58] LABS: HCG Quantitative < 2 mIU/mL
[2021-07-24 19:10] LABS: Appearance Urine CLOUDY; Color Urine YELLOW; Glucose Urine UA NEG (NEG); Leukocyte Esterase Urine NEG (NEG); Nitrite Urine NEG (NEG); PH 8.5 (5.0-8.0); Urine Blood NEG (NEG); Urine Ketones 40 MG/DL (NEG); Urine Protein TRACE MG/DL (NEG-TRACE)
[2021-07-24 19:26] LABS: UPreg QC Valid YES; Urine Pregnancy NEGATIVE (NEGATIVE)
[2021-07-24] MEDS: diphenhydrAMINE HCL 50 MG/ML VIAL IVPUSH (19:29)
[2021-07-24] MEDS: ondansetron HCL 4 MG/2 ML VIAL IVPUSH (19:29)
[2021-07-24] MEDS: Ketorolac Tromethamine 15 MG/ML VIAL 30 MG IVPUSH (19:30)
[2021-07-24] MEDS: Magnesium Hydrox/Alum Hydrox 30 ML ORAL.SUSP PO (19:36)
[2021-07-24] MEDS: Lidocaine HCl Viscous 2 % 15 ML SOLUTION MUCOUS MEM (19:36)
[2021-07-24] MEDS: PHENobarb/Hyoscy/Atropine/Scop 10 ML ELIXIR PO (19:37)
[2021-07-24] MEDS: Metoclopramide HCl 10 MG/2 ML VIAL IVPUSH ×2 (19:40→23:15)
[2021-07-24] MEDS: Famotidine/PF 20 MG/2 ML VIAL IVPUSH (19:40)
[2021-07-24] MEDS: Morphine Sulfate 4 MG/ML CARTRIDGE IVPUSH (23:14)
[2021-07-24 23:23] VITALS: BP 93/50; PULSE 85; RESP 18; O2SAT 99
--- NOTE | 2021-07-24 23:43 | PM.IMHP ---
History of Present Illness Date of Service: 07/24/21 Chief Complaint: Nausea/vomiting 41-year-old female with a past medical history of recurrent UTI/pyelonephritis, polysubstance abuse, cannabis abuse, history of pelvic inflammatory disease, ovarian cyst, recently discharged from the hospital presented to the hospital with a chief complaint of nausea vomiting and abdominal discomfort. Patient reports that her symptoms have been going on for 3 days and has not been taking anything p.o.. Denies any chest pain palpitations lightheadedness or dizziness. Denies any fever chills cough. Denies any urinary symptoms. Review of all other systems is negative except mentioned above ER course: Per ER team patient noted mild diffuse tenderness in the abdomen; no guarding no rigidity; ultrasound showed no acute findings; patient was given nausea medications with no significant improvement patient unable to tolerate p.o.. Admitted to the hospital for further observation. [facility] Medical History (Updated 07/25/21 @ 01:26 by RAMONE Reyes) Abdominal pain Abscess Acidosis, lactic Bacteremia Cocaine abuse Complicated UTI (urinary tract infection) Cyclical vomiting Hidradenitis suppurativa Hypokalemia Hypothyroidism Marijuana abuse Opioid abuse Pelvic inflammatory disease Pyelonephritis Pyelonephritis UTI (urinary tract infection) Vomiting Family History Mother CVD (cardiovascular disease) HTN (hypertension) Maternal Grandmother High cholesterol HTN (hypertension) Maternal Grandfather Prostate cancer Other Heart disease Surgical History Tubal ligation status Social History Household Members: Family Housing: Apartment Do you presently have visiting nurse or other home services: No Alcohol intake: never Patient Tobacco Use Status: Current everyday Tobacco user Tobacco use type: Cigarette Cigarettes Per Day: 4 Years Smoked: 20 Second Hand Smoke Exposure: No Substance Use Type: Marijuana Advance Directives: Yes Advance Directives on File: Yes Advance Directives Date on File: 01/02/21 Patient : No service: No Current occupational status: employed Meds Allergies Allergy/AdvReac Type Severity Reaction Status Date / Time amoxicillin [Amoxicillin] Allergy Intermediate HIVES Verified 07/08/21 15:11 tramadol AdvReac Intermediate SOB Verified 07/08/21 15:11 Active Medications: Current Medications Generic Name Dose Route Start Last Admin Trade Name Jelena PRN Reason Stop Dose Admin Acetaminophen 650 mg 07/24/21 23:33 Acetaminophen 325 Mg Tablet PO Q6H PRN Pain, Mild (Pain Scale 1-3) Dextrose/Sodium Chloride 1,000 mls @ 100 mls/hr 07/24/21 23:45 D51/2ns IVCONT .Q10H VICTOR M Melatonin 6 mg 07/24/21 23:33 Melatonin 3 Mg Tablet PO BEDTIME PRN Insomnia Ondansetron HCl 4 mg 07/24/21 23:33 Ondansetron Hcl 4 Mg/2 Ml Vial IVPUSH Q8H PRN Nausea and Vomiting Pharmacy Consult 1 each 07/24/21 23:33 Consult Rx Perform Med Rec MISCELLANE ONCE PRN Consult order Senna 17.2 mg 07/24/21 23:33 Sennosides 8.6 Mg Tablet PO BEDTIME PRN Constipation Sodium Chloride 3 ml 07/25/21 00:00 0.9 % Sodium Chloride Flush 3 Ml Syringe IVFLUSH QSHIFT ON LICENSE OF [facility] Physical Exam Vital Signs and Narrative: Vital Signs: Last Vital Signs Temp 96.9 F 07/24/21 17:27 Pulse 85 07/24/21 23:23 Resp 18 07/24/21 23:23 BP 93/50 L 07/24/21 23:23 Pulse Ox 99 07/24/21 23:23 Body Mass Index 26.6 Gen: Appears be in no acute distress HEENT: NCAT, Moist mucosa. Pulmonary: Vesicular breath sounds, fair air entry CVS: Normal S1-S2 Abdomen: BS+, Soft, Nontender Extremities: Warm well perfused Neuro: Alert and awake. Results Labs CBC and Chem 7: 07/24/21 15:33 07/24/21 15:33 Labs: Laboratory Results - last 24 hr 07/24/21 07/24/21 07/24/21 15:33 15:33 19:03 MCV 78.0 L MCH 23.9 L MCHC 30.6 L RDW 17.7 H Plt Count 301 D MPV 11.6 Immature Gran % (Auto) 0.4 Neut % (Auto) 92.9 H Lymph % (Auto) 4.4 L [place] % (Auto) 2.2 Eos % (Auto) 0.0 Baso % (Auto) 0.1 Lymph # (Auto) 0.5 L [place] # (Auto) 0.3 Eos # (Auto) 0.0 Baso # (Auto) 0.0 Abs Immat Gran (auto) 0.05 H Absolute Neuts (auto) 10.4 H Absolute Nucleated RBC 0.000 Nucleated RBC % (auto) 0.0 Smear Tech's Comments VERIFIED Anion Gap 13 Estim Creat Clear Calc 93.0 Estimated GFR > 60 Random Glucose 108 Calcium 9.9 D Total Bilirubin 0.7 AST 20 ALT 18 Alkaline Phosphatase 59 Total Protein 8.5 H Albumin 4.6 Beta HCG, Quant < 2 Urine Color Urine Appearance Urine pH Ur Specific [place] Urine Protein Urine Glucose (UA) Urine Ketones Urine Blood Urine Nitrite Ur Leukocyte Esterase Urine Test NEGATIVE 07/24/21 19:03 MCV MCH MCHC RDW Plt Count MPV Immature Gran % (Auto) Neut % (Auto) Lymph % (Auto) [place] % (Auto) Eos % (Auto) Baso % (Auto) Lymph # (Auto) [place] # (Auto) Eos # (Auto) Baso # (Auto) Abs Immat Gran (auto) Absolute Neuts (auto) Absolute Nucleated RBC Nucleated RBC % (auto) Smear Tech's Comments Anion Gap Estim Creat Clear Calc Estimated GFR Random Glucose Calcium Total Bilirubin AST ALT Alkaline Phosphatase Total Protein Albumin Beta HCG, Quant Urine Color YELLOW Urine Appearance CLOUDY Urine pH 8.5 H Ur Specific [place] 1.020 Urine Protein TRACE Urine Glucose (UA) NEG Urine Ketones 40 Urine Blood NEG Urine Nitrite NEG Ur Leukocyte Esterase NEG Urine Test Imaging Radiologist's Impressions: Impressions Pelvic/Transvag US 07/24/21 20:03 IMPRESSION: -Both ovaries demonstrate normal arterial and venous waveforms. Doppler Study Ultrasound 07/24/21 20:09 IMPRESSION: -Both ovaries demonstrate normal arterial and venous waveforms. Renal Ultrasound 07/24/21 20:09 IMPRESSION: No renal calculi or hydronephrosis of either kidney. Assessment and Plan (1) Cyclical vomiting: Status: Acute 41-year-old female with a past medical history of recurrent UTI/pyelonephritis, polysubstance abuse, cannabis abuse, history of pelvic inflammatory disease, ovarian cyst, recently discharged from the hospital presented to the hospital with a chief complaint of nausea vomiting and abdominal discomfort. Admitted for cyclic vomiting syndrome: Cyclic vomiting syndrome: Patient does have prior history and continue to use cannabis. Counselled to avoid cannabis use. Supportive care Jorge p.r.n. Advanced diet as tolerated Urinalysis negative for infection Recent pelvic inflammatory disease: Patient on doxycycline and Flagyl as outpatient. Reports a missed few doses secondary to nausea and vomiting. c/w Doxy and Flagyl to finish course DVT prophylaxis: SCD boots Code status: Full code Quality Stroke Does the patient have a stroke diagnosis?: No VTE Prior VTE?: No VTE Risk Level:: Medical - moderate - high VTE Device Contraindication: N/A - Device Ordered VTE Drug Contraindication: Treatment Not Indicated
[2021-07-25 01:49] LABS: CT PCR NOT DETECTED (Not Detect.); NG PCR NOT DETECTED (Not Detect.)
[2021-07-25 02:54] LABS: COVID-19 Test Negative (Negative)
[2021-07-25] MEDS: HYDROmorphone HCl 0.5 MG/0.5 ML SYRINGE IVPUSH ×4 (03:33→21:51)
[2021-07-25] MEDS: Doxycycline Hyclate 100 MG in 0.9 % Sodium Chloride 250 ML 166.67 MG IV ×2 (03:34→13:47)
[2021-07-25] MEDS: metroNIDAZOLE/NS 500 MG/100 ML PIGGYBACK 100 MG IV ×3 (03:40→18:07)
--- NOTE | 2021-07-25 05:14 | PC.NURSE ---
troy solomon [phone]
[2021-07-25 05:51] VITALS: BP 117/58; PULSE 76; RESP 16; TEMP 36.8; O2SAT 97
[2021-07-25 08:00] VITALS: BP 116/73; PULSE 68; RESP 20; TEMP 36.4; O2SAT 100
[2021-07-25] MEDS: Dextrose 5 % and 0.45 % NaCl 1,000 ML 100 ML IVCONT (08:15)
[2021-07-25 08:20] LABS: MANUAL DIFF FLAG NO
[2021-07-25 08:27] LABS: Basophils Percent Auto 0.1 % (0-2); Eosinophils Percent Auto 0.1 % (0-4); Hematocrit 30.3 % (37-47); Hemoglobin 9.1 g/dl (12.0-16.0); Imm Gran Abs Auto 0.03 X10*3/uL (0.00-0.03); Imm Gran Pct Auto 0.4 % (0.0-0.4); Lymphocytes Absolute Auto 1.9 X10*3/uL (1.2-4.9); Lymphocytes Percent Auto 25.3 % (20-40); Mean Corpuscular Hemoglobin 23.5 pg (27.0-33.0); Mean Corpuscular Volume 78.3 fL (80-98); Monocytes Absolute Auto 0.8 X10*3/uL (0.1-1.2); Monocytes Percent Auto 10.3 % (2-11); Neutrophils Absolute Auto 4.8 X10*3/uL (2.0-8.3); Neutrophils Percent Auto 63.8 % (45-73); Platelet Count 229 X10*3/uL (160-400); Red Blood Count 3.87 X10*6/uL (4.20-5.50); Red Cell Distribution Width 18.1 % (11.0-16.0); White Blood Count 7.5 X10*3/uL (4.8-10.8)
[2021-07-25 08:39] LABS: Anion Gap 11 (12-20); Blood Urea Nitrogen 12 mg/dL (9-16); Calcium 9.2 mg/dL (8.4-10.2); Carbon Dioxide 23 mmol/L (22-29); Chloride 108 mmol/L (96-108); Estimated Glomerular Filt Rate > 60; Glucose Random 88 mg/dL (60-115); Potassium 3.5 mmol/L (3.3-5.1); Sodium 138 mmol/L (135-145)
--- NOTE | 2021-07-25 09:08 | PHA.MEDREC ---
Pharmacy Consult ? Medication Reconciliation Pharmacy has completed the medication reconciliation. Nicolle Lynch, PharmD [phone]
[2021-07-25 09:14] LABS: BV Int Neg Control Negative (Negative); BV Int Pos Control Positive (Positive)
--- NOTE | 2021-07-25 10:23 | MHC.CM.PN ---
pt lives alone in her apt. she reports that she is independent in her care. she denies the need for vna at dc. she said she has a freind who will transport her home at dc, however if she is not available then she may need help c a ride home. dc plan is home no svcs. cm to cont. to follow.
[2021-07-25 11:56] VITALS: BP 134/93; PULSE 76; RESP 20; TEMP 36.4; O2SAT 100
--- NOTE | 2021-07-25 13:25 | P.PNIM_ITS ---
Subjective Subjective Date of Service: 07/25/21 Interval History: c/o nausea, abd pain but wants to try eating no fever no dyspnea Review of Systems Review of Systems: Yes all other systems are reviewed and are negative Physical Exam Vital Signs: Vital Signs: Last Vital Signs Temp 97.6 F 07/25/21 11:56 Pulse 76 07/25/21 11:56 Resp 20 07/25/21 11:56 BP 134/93 H 07/25/21 11:56 Pulse Ox 100 07/25/21 11:56 Body Mass Index 26.6 Gen: in no acute distress HEENT: sclera anicteric, moist mucus membranes Neck: supple Lungs: clear to auscultation bilaterally Heart: regular rate and rhythm, no murmurs Abd: soft, mild diffuse tenderness, non-distended Ext: no edema Skin: warm/well-perfused Neuro: alert and oriented x3, no focal findings Psych: appropriate affect Objective Data Active Medications Acetaminophen (Acetaminophen 325 Mg Tablet) 650 mg PO Q6H PRN PRN Reason: Pain, Mild (Pain Scale 1-3) Hydromorphone HCl (Hydromorphone Hcl 0.5 Mg/0.5 Ml Syringe) 0.5 mg IVPUSH Q6H PRN; Protocol PRN Reason: Breakthrough Pain Last Admin: 07/25/21 09:53 Dose: 0.5 mg Documented by: MAUREEN Doxycycline Hyclate 100 mg/ (Sodium Chloride) 250 mls @ 166.67 mls/hr IV Q12H [facility] Last Infusion: 07/25/21 06:12 Dose: 0 mls/hr Documented by: [place] Metronidazole (Flagyl) 500 mg in 100 mls @ 100 mls/hr IV Q8H [facility] Last Infusion: 07/25/21 11:51 Dose: 0 mls/hr Documented by: MAUREEN Lactated Ringer's (Lr) 1,000 mls @ 100 mls/hr IVCONT .Q10H [facility] Melatonin (Melatonin 3 Mg Tablet) 6 mg PO BEDTIME PRN PRN Reason: Insomnia Nicotine Polacrilex (Nicotine Polacrilex 2 Mg Gum) 2 mg BUCCAL Q1H PRN PRN Reason: NICOTINE CRAVINGS Ondansetron HCl (Ondansetron Hcl 4 Mg/2 Ml Vial) 4 mg IVPUSH Q8H PRN PRN Reason: Nausea and Vomiting Pharmacy Consult (Consult Rx Perform Med Rec) 1 each MISCELLANE ONCE PRN PRN Reason: Consult order Senna (Sennosides 8.6 Mg Tablet) 17.2 mg PO BEDTIME PRN PRN Reason: Constipation Sodium Chloride (0.9 % Sodium Chloride Flush 3 Ml Syringe) 3 ml IVFLUSH QSHIFT VICTOR M Last Admin: 07/25/21 07:41 Dose: Not Given Documented by: MAUREEN Non-Admin Reason: IV Running Labs CBC & Chem 7: 07/25/21 07:51 07/25/21 07:51 Labs: Laboratory Results - last 24 hr 07/24/21 07/24/21 07/24/21 15:33 15:33 19:03 MCV 78.0 L MCH 23.9 L MCHC 30.6 L RDW 17.7 H Plt Count 301 D MPV 11.6 Immature Gran % (Auto) 0.4 Neut % (Auto) 92.9 H Lymph % (Auto) 4.4 L [place] % (Auto) 2.2 Eos % (Auto) 0.0 Baso % (Auto) 0.1 Lymph # (Auto) 0.5 L [place] # (Auto) 0.3 Eos # (Auto) 0.0 Baso # (Auto) 0.0 Abs Immat Gran (auto) 0.05 H Absolute Neuts (auto) 10.4 H Absolute Nucleated RBC 0.000 Nucleated RBC % (auto) 0.0 Smear Tech's Comments VERIFIED Anion Gap 13 Estim Creat Clear Calc 93.0 Estimated GFR > 60 Random Glucose 108 Calcium 9.9 D Total Bilirubin 0.7 AST 20 ALT 18 Alkaline Phosphatase 59 Total Protein 8.5 H Albumin 4.6 Beta HCG, Quant < 2 Urine Color Urine Appearance Urine pH Ur Specific [place] Urine Protein Urine Glucose (UA) Urine Ketones Urine Blood Urine Nitrite Ur Leukocyte Esterase Urine Test NEGATIVE Luz species DNA Chlam trachomat DNA PCR COVID-19 (MILLICENT) COVID-19 Clin Com Gardnerella DNA Probe N.gonorrhoeae DNA (PCR) Trichomonas DNA Probe 07/24/21 07/24/21 07/24/21 19:03 23:07 23:07 MCV MCH MCHC RDW Plt Count MPV Immature Gran % (Auto) Neut % (Auto) Lymph % (Auto) [place] % (Auto) Eos % (Auto) Baso % (Auto) Lymph # (Auto) [place] # (Auto) Eos # (Auto) Baso # (Auto) Abs Immat Gran (auto) Absolute Neuts (auto) Absolute Nucleated RBC Nucleated RBC % (auto) Smear Tech's Comments Anion Gap Estim Creat Clear Calc Estimated GFR Random Glucose Calcium Total Bilirubin AST ALT Alkaline Phosphatase Total Protein Albumin Beta HCG, Quant Urine Color YELLOW Urine Appearance CLOUDY Urine pH 8.5 H Ur Specific [place] 1.020 Urine Protein TRACE Urine Glucose (UA) NEG Urine Ketones 40 Urine Blood NEG Urine Nitrite NEG Ur Leukocyte Esterase NEG Urine Test Luz species DNA Positive A Chlam trachomat DNA PCR NOT DETECTED COVID-19 (MILLICENT) COVID-19 Clin Com [place] DNA Probe Negative N.gonorrhoeae DNA (PCR) NOT DETECTED Trichomonas DNA Probe Negative 07/25/21 07/25/21 07/25/21 02:30 07:51 07:51 MCV 78.3 L MCH 23.5 L MCHC 30.0 L RDW 18.1 H Plt Count 229 MPV 12.0 Immature Gran % (Auto) 0.4 Neut % (Auto) 63.8 Lymph % (Auto) 25.3 [place] % (Auto) 10.3 Eos % (Auto) 0.1 Baso % (Auto) 0.1 Lymph # (Auto) 1.9 [place] # (Auto) 0.8 Eos # (Auto) 0.0 Baso # (Auto) 0.0 Abs Immat Gran (auto) 0.03 Absolute Neuts (auto) 4.8 Absolute Nucleated RBC 0.000 Nucleated RBC % (auto) 0.0 Smear Tech's Comments Anion Gap 11 L Estim Creat Clear Calc 93.0 Estimated GFR > 60 Random Glucose 88 Calcium 9.2 D Total Bilirubin AST ALT Alkaline Phosphatase Total Protein Albumin Beta HCG, Quant Urine Color Urine Appearance Urine pH Ur Specific [place] Urine Protein Urine Glucose (UA) Urine Ketones Urine Blood Urine Nitrite Ur Leukocyte Esterase Urine Test Luz species DNA Chlam trachomat DNA PCR COVID-19 (MILLICENT) Negative COVID-19 Clin Com See Note Gard[place]rella DNA Probe N.gonorrhoeae DNA (PCR) Trichomonas DNA Probe Microbiology Microbiology Results: Microbiology 07/24/21 23:07 Trichomonas Preparation - Final Vaginal Assessment and Plan (1) Cyclical vomiting: Status: Acute Assessment and Plan: hospital d#2 41yo F with recurrent UTI/pyelonephritis, cannabis abuse, hx PID + ovarian cyst presenting with abd pain/nausea/vomiting, admitted for suspected cyclic vomiting syndrome # cyclic vomiting syndrome/cannabinoid hyperemesis syndrome - IV fluids, prn ondansetron, advance diet as tolerated, Addiction Medicine consult, counseling to avoid cannabis abuse # recent PID - complete doxycycline + metronidazole # VTE ppx - LMWH Quality Stroke Does the patient have a stroke diagnosis?: No VTE Prior VTE?: No VTE Risk Level:: Medical - moderate - high VTE Device Contraindication: N/A - Device Ordered VTE Drug Contraindication: Treatment Not Indicated
[2021-07-25] MEDS: Enoxaparin Sodium 40 MG/0.4 ML SYRINGE SUBCUT (13:47)
[2021-07-25] MEDS: ondansetron HCL 4 MG/2 ML VIAL IVPUSH ×2 (13:47→22:24)
[2021-07-25 15:39] VITALS: BP 132/81; PULSE 79; RESP 19; TEMP 36.8; O2SAT 100
[2021-07-25] MEDS: Lactated Ringers 1,000 ML 100 ML IVCONT (15:46)
--- NOTE | 2021-07-25 16:49 | HO.ADDICTCON ---
History of Present Illness Date of Service: 07/25/2021 Chief Complaint: Cyclic vomiting syndrome Reason for Consult: ?canabinoid hyperemesis syndrome Requesting physician: Breezy Andersen Discussed with referring provider: No Sources of Information: patient interviewed and chart reviewed HPI Narrative: Patient is a 41 year old female with history of recurrent UTI, pyelonephritis and recurrent vomiting thought to be due to use of cannabis. Consult requested to assess for canabis use disorder. Patient seen in room 385. Awake, alert, minimally engaged in interview (reporting she was feeling nauseous). Attempted to discuss provider concerns related to role of cannabis and recurrent vomiting, patient dismissive of this theory and states that she only vomits when she is sick or has an infection. Declined to discuss cannabis use as as she has been smoking for years and this never happened before She denies any other substance use and when asked about previous positive UDS she stated they were a result of medication prescribed to her by providers--she declined to discuss any further. During interview she reported feeling hot and cold flashes, nausea, headache and body aches. Past Psychiatric History: not reviewed Review of Systems Review of Systems as per HPI Diagnostics Vital Signs (24Hr): Vital Signs - 24 hr 07/24/21 17:27 07/24/21 23:23 07/25/21 05:51 Temperature 96.9 F 98.2 F Pulse Rate 89 85 76 Respiratory Rate 20 18 16 Blood Pressure 167/86 H 93/50 L 117/58 L Pulse Oximetry 99 97 07/25/21 08:00 07/25/21 11:56 07/25/21 15:39 Temperature 97.5 F 97.6 F 98.2 F Pulse Rate 68 76 79 Respiratory Rate 20 20 19 Blood Pressure 116/73 134/93 H 132/81 Pulse Oximetry 100 100 100 Body Mass Index 26.6 Labs Results: 07/25/21 07:51 07/25/21 07:51 Labs: Laboratory Results - last 48 hr 07/24/21 07/24/21 07/24/21 15:33 15:33 19:03 WBC 11.2 H RBC 4.27 Hgb 10.2 L Hct 33.3 L MCV 78.0 L MCH 23.9 L MCHC 30.6 L RDW 17.7 H Plt Count 301 D MPV 11.6 Immature Gran % (Auto) 0.4 Neut % (Auto) 92.9 H Lymph % (Auto) 4.4 L [place] % (Auto) 2.2 Eos % (Auto) 0.0 Baso % (Auto) 0.1 Lymph # (Auto) 0.5 L [place] # (Auto) 0.3 Eos # (Auto) 0.0 Baso # (Auto) 0.0 Abs Immat Gran (auto) 0.05 H Absolute Neuts (auto) 10.4 H Absolute Nucleated RBC 0.000 Nucleated RBC % (auto) 0.0 Smear Tech's Comments VERIFIED Sodium 138 Potassium 4.3 Chloride 107 Carbon Dioxide 22 Anion Gap 13 BUN 11 Creatinine 0.75 Estim Creat Clear Calc 93.0 Estimated GFR > 60 Random Glucose 108 Calcium 9.9 D Total Bilirubin 0.7 AST 20 ALT 18 Alkaline Phosphatase 59 Total Protein 8.5 H Albumin 4.6 Beta HCG, Quant < 2 Urine Color Urine Appearance Urine pH Ur Specific [place] Urine Protein Urine Glucose (UA) Urine Ketones Urine Blood Urine Nitrite Ur Leukocyte Esterase Urine Test NEGATIVE Luz species DNA Chlam trachomat DNA PCR COVID-19 (MILLICENT) COVID-19 Clin Com Gard[place]rella DNA Probe N.gonorrhoeae DNA (PCR) Trichomonas DNA Probe 07/24/21 07/24/21 07/24/21 19:03 23:07 23:07 WBC RBC Hgb Hct MCV MCH MCHC RDW Plt Count MPV Immature Gran % (Auto) Neut % (Auto) Lymph % (Auto) [place] % (Auto) Eos % (Auto) Baso % (Auto) Lymph # (Auto) [place] # (Auto) Eos # (Auto) Baso # (Auto) Abs Immat Gran (auto) Absolute Neuts (auto) Absolute Nucleated RBC Nucleated RBC % (auto) Smear Tech's Comments Sodium Potassium Chloride Carbon Dioxide Anion Gap BUN Creatinine Estim Creat Clear Calc Estimated GFR Random Glucose Calcium Total Bilirubin AST ALT Alkaline Phosphatase Total Protein Albumin Beta HCG, Quant Urine Color YELLOW Urine Appearance CLOUDY Urine pH 8.5 H Ur Specific [place] 1.020 Urine Protein TRACE Urine Glucose (UA) NEG Urine Ketones 40 Urine Blood NEG Urine Nitrite NEG Ur Leukocyte Esterase NEG Urine Test Luz species DNA Positive A Chlam trachomat DNA PCR NOT DETECTED COVID-19 (MILLICENT) COVID-19 Clin Com [place] DNA Probe Negative N.gonorrhoeae DNA (PCR) NOT DETECTED Trichomonas DNA Probe Negative 07/25/21 07/25/21 07/25/21 02:30 07:51 07:51 WBC 7.5 RBC 3.87 L Hgb 9.1 L Hct 30.3 L MCV 78.3 L MCH 23.5 L MCHC 30.0 L RDW 18.1 H Plt Count 229 MPV 12.0 Immature Gran % (Auto) 0.4 Neut % (Auto) 63.8 Lymph % (Auto) 25.3 [place] % (Auto) 10.3 Eos % (Auto) 0.1 Baso % (Auto) 0.1 Lymph # (Auto) 1.9 [place] # (Auto) 0.8 Eos # (Auto) 0.0 Baso # (Auto) 0.0 Abs Immat Gran (auto) 0.03 Absolute Neuts (auto) 4.8 Absolute Nucleated RBC 0.000 Nucleated RBC % (auto) 0.0 Smear Tech's Comments Sodium 138 Potassium 3.5 Chloride 108 Carbon Dioxide 23 Anion Gap 11 L BUN 12 Creatinine 0.75 Estim Creat Clear Calc 93.0 Estimated GFR > 60 Random Glucose 88 Calcium 9.2 D Total Bilirubin AST ALT Alkaline Phosphatase Total Protein Albumin Beta HCG, Quant Urine Color Urine Appearance Urine pH Ur Specific [place] Urine Protein Urine Glucose (UA) Urine Ketones Urine Blood Urine Nitrite Ur Leukocyte Esterase Urine Test Luz species DNA Chlam trachomat DNA PCR COVID-19 (MILLICENT) Negative COVID-19 Clin Com See Note [place] DNA Probe N.gonorrhoeae DNA (PCR) Trichomonas DNA Probe Imaging Radiology Impressions: ITS Impressions Pelvic/Transvag US 07/24/21 20:03 IMPRESSION: -Both ovaries demonstrate normal arterial and venous waveforms. Doppler Study Ultrasound 07/24/21 20:09 IMPRESSION: -Both ovaries demonstrate normal arterial and venous waveforms. Renal Ultrasound 07/24/21 20:09 IMPRESSION: No renal calculi or hydronephrosis of either kidney. Mental Status Exam Mental Status Exam Patient Appearance: Appropriate Patient Orientation: Person, Place, Time and Situation Level of Consciousness: Awake and Alert Patient Behavior: Appropriate and Guarded Mood Description: Constricted Affect Description: Constricted Speech Pattern: Clear Thought Process: Intact Thought Content: positive for Intact Judgement: Fair Medications Medications Current Medications Generic Name Dose Route Start Last Admin Trade Name Freq PRN Reason Stop Dose Admin Acetaminophen 650 mg 07/24/21 23:33 Acetaminophen 325 Mg Tablet PO Q6H PRN Pain, Mild (Pain Scale 1-3) Enoxaparin Sodium 40 mg 07/25/21 14:00 07/25/21 13:47 Enoxaparin Sodium 40 Mg/0.4 Ml Syringe SUBCUT 40 mg Q24H VICTOR M Administration Hydromorphone HCl 0.5 mg 07/25/21 02:13 07/25/21 16:08 Hydromorphone Hcl 0.5 Mg/0.5 Ml Syringe IVPUSH 0.5 mg Q6H PRN Administration Breakthrough Pain Protocol Doxycycline Hyclate 100 mg/ 250 mls @ 166.67 mls/hr 07/25/21 03:00 07/25/21 15:42 Sodium Chloride IV Infused Q12H VICTOR M Infusion Metronidazole 500 mg in 100 mls @ 100 mls/hr 07/25/21 03:00 07/25/21 11:51 Flagyl IV Infused Q8H VICTOR M Infusion Lactated Ringer's 1,000 mls @ 100 mls/hr 07/25/21 08:30 07/25/21 15:46 Lr IVCONT 100 mls/hr .Q10H VICTOR M Administration Melatonin 6 mg 07/24/21 23:33 Melatonin 3 Mg Tablet PO BEDTIME PRN Insomnia Nicotine Polacrilex 2 mg 07/25/21 11:30 Nicotine Polacrilex 2 Mg Gum BUCCAL Q1H PRN NICOTINE CRAVINGS Ondansetron HCl 4 mg 07/24/21 23:33 07/25/21 13:47 Ondansetron Hcl 4 Mg/2 Ml Vial IVPUSH 4 mg Q8H PRN Administration Nausea and Vomiting Pharmacy Consult 1 each 07/24/21 23:33 Consult Rx Perform Med Rec MISCELLANE ONCE PRN Consult order Senna 17.2 mg 07/24/21 23:33 Sennosides 8.6 Mg Tablet PO BEDTIME PRN Constipation Sodium Chloride 3 ml 07/25/21 00:00 07/25/21 14:56 0.9 % Sodium Chloride Flush 3 Ml Syringe IVFLUSH Not Given QSHIFT VICTOR M Allergies Allergies Allergy/AdvReac Type Severity Reaction Status Date / Time amoxicillin [Amoxicillin] Allergy Intermediate HIVES Verified 07/08/21 15:11 tramadol AdvReac Intermediate SOB Verified 07/08/21 15:11 Assessment & Plan Assessment & Plan (1) Intractable vomiting: Status: Acute Code(s): R11.10 - Vomiting, unspecified Assessment and Plan: Discussed using hot showers or capsacin to rub on her abdomen to address sx --she reports hot showers have been very helpful in the past and she often takes 3 showers per day declined further intervention or resources Greater than 50% of the session was spent on counseling and/or coordination of care PMF Past Medical History Medical History (Updated 07/25/21 @ 01:26 by RAMONE Reyes) Abdominal pain Abscess Acidosis, lactic Bacteremia Cocaine abuse Complicated UTI (urinary tract infection) Cyclical vomiting Hidradenitis suppurativa Hypokalemia Hypothyroidism Marijuana abuse Opioid abuse Pelvic inflammatory disease Pyelonephritis Pyelonephritis UTI (urinary tract infection) Vomiting Family History Family History Mother CVD (cardiovascular disease) HTN (hypertension) Maternal Grandmother High cholesterol HTN (hypertension) Maternal Grandfather Prostate cancer Other Heart disease Surgical History Surgical History Tubal ligation status Social History Social History Household Members: Family Housing: Apartment Do you presently have visiting nurse or other home services: No Alcohol intake: never Patient Tobacco Use Status: Current everyday Tobacco user Tobacco use type: Cigarette Cigarettes Per Day: 4 Years Smoked: 20 e-Cigarette/Vaping Use: Never Used Patient Interested in Nicotine Replacement: No Second Hand Smoke Exposure: No Use of substances other than those prescribed or required for medical reasons: Yes Substance Use Type: Marijuana Substance Use Frequency: Occasionally Last Used Substance: Just Prior to Admission Currently Displaying Signs/Symptoms of Drug Intoxication Withdrawal: No Any prior treatment program specific to substance use: No Have you been hit, kicked, punched, or otherwise hurt by someone within the past year? If so, by whom?: No Is there a partner from a previous relationship who is making you feel unsafe now?: No Are you made to feel afraid or neglected: No Advance Directives: Yes Advance Directives on File: Yes Advance Directives Date on File: 01/02/21 Do you have thoughts of harming others: None Do you have a plan to hurt others: No Plan Nutrition Risks: No Nutritional Risk Patient : No : No Poor oral hygiene: No service: No Current occupational status: employed
[2021-07-25 19:37] VITALS: BP 145/94; PULSE 81; RESP 18; TEMP 36.8; O2SAT 100
[2021-07-25] MEDS: Melatonin 3 MG TABLET 6 MG PO (22:24)
[2021-07-25 23:58] VITALS: BP 121/71; PULSE 84; RESP 17; TEMP 36.3; O2SAT 99
[2021-07-26] MEDS: Doxycycline Hyclate 100 MG in 0.9 % Sodium Chloride 250 ML 166.67 MG IV (02:13)
[2021-07-26] MEDS: Lactated Ringers 1,000 ML 100 ML IVCONT (02:13)
[2021-07-26] MEDS: metroNIDAZOLE/NS 500 MG/100 ML PIGGYBACK 100 MG IV ×2 (03:51→10:21)
[2021-07-26] MEDS: HYDROmorphone HCl 0.5 MG/0.5 ML SYRINGE IVPUSH ×2 (03:52→10:20)
[2021-07-26 03:53] VITALS: BP 139/80; PULSE 72; RESP 17; TEMP 36.3; O2SAT 100
[2021-07-26 08:00] VITALS: BP 135/80; PULSE 66; RESP 20; TEMP 36.2; O2SAT 100
[2021-07-26] MEDS: ondansetron HCL 4 MG/2 ML VIAL IVPUSH (09:21)
[2021-07-26] MEDS: Fluconazole 150 MG TABLET PO (09:21)
[2021-07-26] MEDS: 0.9 % Sodium Chloride Flush 3 ML SYRINGE IVFLUSH (10:22)
--- NOTE | 2021-07-26 10:47 | PM.DS ---
DS: Providers Provider Date of Service: 07/26/21 Date of admission: 07/24/21 23:33 Date of discharge: 07/26/21 Primary care physician: Navi Real MD Consults: 07/25/21 08:31 Addiction Medicine Routine Consulting Provider: Chandni Dawn Reason for consultation: cannabis hyperemesis DS: Diagnosis Discharge Diagnosis (1) Intractable vomiting: Status: Acute (2) Cyclical vomiting: Status: Acute (3) Cannabinoid hyperemesis syndrome: Status: Acute (4) Vaginal candidiasis: Status: Acute DS: Summary Hospital Course Hospital Course: From admission H+P by hospitalist Kev Herzog MD, 07/24/21: 41-year-old female with a past medical history of recurrent UTI/pyelonephritis, polysubstance abuse, cannabis abuse, history of pelvic inflammatory disease, ovarian cyst, recently discharged from the hospital presented to the hospital with a chief complaint of nausea vomiting and abdominal discomfort. Patient reports that her symptoms have been going on for 3 days and has not been taking anything p.o.. Denies any chest pain palpitations lightheadedness or dizziness. Denies any fever chills cough. Denies any urinary symptoms. Review of all other systems is negative except mentioned above ER course: Per ER team patient noted mild diffuse tenderness in the abdomen; no guarding no rigidity; ultrasound showed no acute findings; patient was given nausea medications with no significant improvement patient unable to tolerate p.o..? Admitted to the hospital for further observation. This 41yo F with recurrent UTI/pyelonephritis, cannabis abuse, hx PID + ovarian cyst presenting with abd pain/nausea/vomiting was admitted for suspected cyclic vomiting syndrome from cannabinoid hyperemesis. She improved with IV fluid hydration and ondansetron. Diet was advanced. She was counseled to avoid cannabis and all substances of abuse. She was discharged home and was treated for candidal vulvovaginitis; she will complete PID treatment as previously prescribed with doxycycline and metronidazole. Time Spent with Patient Time attestation: Total time spent providing and/or coordinating discharge services: Discharge coordination time: Greater than 30 minutes Quality: Stroke Does the patient have a stroke diagnosis?: No Physical Exam Vital Signs: Vital Signs: Last Vital Signs Temp 97.2 F 07/26/21 08:00 Pulse 66 07/26/21 08:00 Resp 20 07/26/21 08:00 BP 135/80 07/26/21 08:00 Pulse Ox 100 07/26/21 08:00 Body Mass Index 26.6 Gen: in no acute distress HEENT: sclera anicteric, moist mucus membranes Neck: supple Lungs: clear to auscultation bilaterally Heart: regular rate and rhythm, no murmurs Abd: soft, non-tender, non-distended : no CVA tenderness Ext: no edema Skin: warm/well-perfused Neuro: alert and oriented x3, no focal findings Psych: appropriate affect DS: Data Data Completed and Pending Completed studies during hospitalization [Text1]: Laboratory Results WBC 7.5 X10*3/uL (4.8-10.8) 07/25/21 07:51 RBC 3.87 X10*6/uL (4.20-5.50) L 07/25/21 07:51 Hgb 9.1 g/dl (12.0-16.0) L 07/25/21 07:51 Hct 30.3 % (37-47) L 07/25/21 07:51 MCV 78.3 fL (80-98) L 07/25/21 07:51 MCH 23.5 pg (27.0-33.0) L 07/25/21 07:51 MCHC 30.0 g/dl (31.0-35.0) L 07/25/21 07:51 RDW 18.1 % (11.0-16.0) H 07/25/21 07:51 Plt Count 229 X10*3/uL (160-400) 07/25/21 07:51 MPV 12.0 fL (9.4-12.3) 07/25/21 07:51 Immature Gran % (Auto) 0.4 % (0.0-0.4) 07/25/21 07:51 Neut % (Auto) 63.8 % (45-73) 07/25/21 07:51 Lymph % (Auto) 25.3 % (20-40) 07/25/21 07:51 [place] % (Auto) 10.3 % (2-11) 07/25/21 07:51 Eos % (Auto) 0.1 % (0-4) 07/25/21 07:51 Baso % (Auto) 0.1 % (0-2) 07/25/21 07:51 Lymph # (Auto) 1.9 X10*3/uL (1.2-4.9) 07/25/21 07:51 [place] # (Auto) 0.8 X10*3/uL (0.1-1.2) 07/25/21 07:51 Eos # (Auto) 0.0 X10*3/uL (0.0-0.4) 07/25/21 07:51 Baso # (Auto) 0.0 X10*3/uL (0.0-0.2) 07/25/21 07:51 Abs Immat Gran (auto) 0.03 X10*3/uL (0.00-0.03) 07/25/21 07:51 Absolute Neuts (auto) 4.8 X10*3/uL (2.0-8.3) 07/25/21 07:51 Absolute Nucleated RBC 0.000 X10*3/uL (0.0-0.012) 07/25/21 07:51 Nucleated RBC % (auto) 0.0 /100WBC (0.0-0.2) 07/25/21 07:51 Smear Tech's Comments VERIFIED 07/24/21 15:33 Sodium 138 mmol/L (135-145) 07/25/21 07:51 Potassium 3.5 mmol/L (3.3-5.1) 07/25/21 07:51 Chloride 108 mmol/L (96-108) 07/25/21 07:51 Carbon Dioxide 23 mmol/L (22-29) 07/25/21 07:51 Anion Gap 11 (12-20) L 07/25/21 07:51 BUN 12 mg/dL (9-16) 07/25/21 07:51 Creatinine 0.75 mg/dL (0.5-1.4) 07/25/21 07:51 Estim Creat Clear Calc 93.0 07/25/21 07:51 Estimated GFR > 60 07/25/21 07:51 Random Glucose 88 mg/dL (60-115) 07/25/21 07:51 Calcium 9.2 mg/dL (8.4-10.2) D 07/25/21 07:51 Total Bilirubin 0.7 mg/dL (0.0-1.0) 07/24/21 15:33 AST 20 U/L (5-31) 07/24/21 15:33 ALT 18 U/L (0-31) 07/24/21 15:33 Alkaline Phosphatase 59 U/L (39-117) 07/24/21 15:33 Total Protein 8.5 g/dL (6.5-8.0) H 07/24/21 15:33 Albumin 4.6 g/dL (3.5-5.0) 07/24/21 15:33 Beta HCG, Quant < 2 mIU/mL 07/24/21 15:33 Urine Color YELLOW 07/24/21 19:03 Urine Appearance CLOUDY 07/24/21 19:03 Urine pH 8.5 (5.0-8.0) H 07/24/21 19:03 Ur Specific [place] 1.020 (1.005-1.025) 07/24/21 19:03 Urine Protein TRACE MG/DL (NEG-TRACE) 07/24/21 19:03 Urine Glucose (UA) NEG MG/DL (NEG) 07/24/21 19:03 Urine Ketones 40 MG/DL (NEG) 07/24/21 19:03 Urine Blood NEG (NEG) 07/24/21 19:03 Urine Nitrite NEG (NEG) 07/24/21 19:03 Ur Leukocyte Esterase NEG (NEG) 07/24/21 19:03 Urine Test NEGATIVE (NEGATIVE) 07/24/21 19:03 Luz species DNA Positive (Negative) A 07/24/21 23:07 Chlam trachomat DNA PCR NOT DETECTED (Not Detect.) 07/24/21 23:07 COVID-19 (MILLICENT) Negative (Negative) 07/25/21 02:30 COVID-19 Clin Com See Note 07/25/21 02:30 [place] DNA Probe Negative (Negative) 07/24/21 23:07 N.gonorrhoeae DNA (PCR) NOT DETECTED (Not Detect.) 07/24/21 23:07 Trichomonas DNA Probe Negative (Negative) 07/24/21 23:07 Impressions Pelvic/Transvag US 07/24/21 20:03 IMPRESSION: -Both ovaries demonstrate normal arterial and venous waveforms. Doppler Study Ultrasound 07/24/21 20:09 IMPRESSION: -Both ovaries demonstrate normal arterial and venous waveforms. Renal Ultrasound 07/24/21 20:09 IMPRESSION: No renal calculi or hydronephrosis of either kidney. Discharge Plan Discharge Patient Disposition: Home, Self-Care Discharge Diagnosis: cyclic vomiting syndrome/cannabinoid hyperemesis syndrome, vaginal candidiasis Referrals: Navi Real MD [Primary Care Provider] - 1 Week Discharge Medications: New fluconazole 150 mg tablet 150 mg PO ONCE Qty: 1 RF: 0 ondansetron 4 mg tablet,disintegrating 4 mg PO Q8H PRN (Reason: nausea and vomiting) Qty: 14 RF: 0 Continued ascorbic acid (vitamin C) 1,000 mg tablet 1 g PO DAILY 90 Days Qty: 90 RF: 0 methenamine hippurate 1 gram tablet 1 tab PO DAILY RF: 0 ferrous sulfate 324 mg (65 mg iron) Tablet,Delayed Release (Dr/Ec) 324 mg PO DAILY Qty: 30 RF: 0 ibuprofen 800 mg tablet 1 tab PO Q8H PRN (Reason: pain) Qty: 60 RF: 1 nicotine (polacrilex) 2 mg gum 2 mg buccal Q1H Qty: 110 RF: 0 metronidazole 500 mg Tablet 500 mg PO Q12H Qty: 22 RF: 0 doxycycline hyclate 100 mg Tablet 100 mg PO Q12H Qty: 22 RF: 0 Changed oxycodone 5 mg tablet 1 tab PO Q12H PRN (Reason: pain) Qty: 10 RF: 0 Discharge Orders: Discharge Order (Routine); Ordered 07/26/21 Ordered By: Breezy Andersen Diet: other Activity on Discharge: As tolerated Stand Alone Forms: Patient Portal Discharge page, Work/School Release Care Plan Goals: relief of nausea/vomiting/abdominal pain Health Concerns: cyclic vomiting syndrome/cannabinoid hyperemesis syndrome, vaginal candidiasis Plan of Treatment: BRAT diet x 2 days, then advance as tolerated take ondansetron 4 mg every 8 hours as needed for severe nausea/vomiting most importantly, avoid all cannabis and other cannabinoids take fluconazole 150 mg once on 07/29/21 Assessment: as above Patient Instructions: Cannabis Abuse (DC), Cyclic Vomiting Syndrome (DC)
--- NOTE | 2021-07-26 12:18 | MHC.CM.PN ---
PT DISCHARGING HOME SELF-CARE, PT TO ARRANGE TRANSPORTATION.
== END 2021-07-26 12:40 | disposition home or self-care (01) ==
LOC: HO.ED 18:23 → HO.EDOVER 07-25 00:23 → HO.S3 07-25 06:39
PROVIDERS: Physician Assistant; Admitting Provider Hospitalist; Emergency Provider Emergency Medicine; PCP Family Medicine; Visit Provider Family Medicine
DX: R11.15 Cyclical vomiting syndrome unrelated to migraine (principal); R11.2 Nausea with vomiting, unspecified; B37.49 Other urogenital candidiasis; F12.10 Cannabis abuse, uncomplicated; F14.10 Cocaine abuse, uncomplicated; Z20.822 Contact with and (suspected) exposure to COVID-19; Z88.1 Allergy status to other antibiotic agents; Z88.0 Allergy status to penicillin; Z79.899 Other long term (current) drug therapy
CPT/HCPCS: 36415; 76775; 76830; 76856; 80048; 80053; 81003; 81025; 84702; 85025; 87480; 87491; 87510; 87591; 87635; 87660; 93975; 96361; 96372; 96374; 96375; 96376; 99218; 99284; 99285; J1170; J1200; J1650; J1885; J2270; J2405; J2765

== ENCOUNTER 2021-08-07 07:59 | Observation (INO) | payer OTHER, SELFPAY ==
[2021-08-07] VITALS (8 sets, daily range): BP systolic 121–177; BP diastolic 72–95; PULSE 79–98; RESP 18–22; TEMP 36.7–38.3; O2SAT 96–98; BMI 26.6
--- NOTE | ~2021-08-07 | CT_ITS ---
EXAMINATION: CT ABDOMEN AND PELVIS WITHOUT CONTRAST CLINICAL INFORMATION: Abdominal pain and fever COMPARISON: Previous CT of the abdomen and pelvis June 2021, pelvic and renal ultrasound July 2021 TECHNIQUE: Multidetector volumetric imaging was performed from the superior aspect of the liver through the pubic symphysis. Sagittal and coronal reformatted images were obtained on the technologist's workstation. This CT examination was performed using dose optimization techniques as appropriate, variously including the following: *Automated exposure control *Adjustment of mA and/or kV according to patient size (this includes techniques or standardized protocols for targeted exams where dose is matched to indication/reason for exam; i.e. extremities or head) *Use of iterative reconstruction technique DLP: 443 mGy-cm FINDINGS: LUNG BASES: The visualized lung bases are unremarkable. LIVER, GALLBLADDER, AND BILIARY TREE: The liver is normal in size, shape, and attenuation. No focal hepatic lesion or biliary ductal dilatation is present. The gallbladder is unremarkable with no evidence of radiopaque gallstones, gallbladder wall thickening, or obvious pericholecystic inflammatory changes. PANCREAS: Unremarkable. SPLEEN: Unremarkable. ADRENAL GLANDS: Unremarkable. KIDNEYS AND URETERS: The kidneys are normal in size, shape, and attenuation. No hydronephrosis, hydroureter, or calculi seen. No perinephric stranding. BLADDER: Unremarkable. GASTROINTESTINAL TRACT: The small and large bowel are unremarkable. The appendix is unremarkable. ABDOMINAL WALL: No significant hernia is appreciated. LYMPH NODES: There are small retroperitoneal lymph nodes in the abdomen and pelvis. No enlarged lymph nodes are seen. There is trace ascites in the pelvis. VASCULAR: Unremarkable. PELVIC VISCERA: There is a cyst in the lower cervix or upper vagina. This appears unchanged. The uterus and adnexa are unremarkable. There is trace fluid in the right pelvis. OSSEOUS STRUCTURES: Unremarkable. CT/CT abdomen pelvis wo con IMPRESSION: Unremarkable exam.
--- NOTE | 2021-08-07 08:16 | ED.NAVMDI ---
HPI - Nausea/Vomiting/Diarrhea General Chief complaint: Nausea/Vomiting/Diarrhea Stated complaint: abd pain Time Seen by Provider: 08/07/21 08:15 Source: patient and old records reviewed Mode of arrival: ambulatory Limitations: no limitations History of Present Illness MD elicited complaint: nausea, vomiting and abdominal pain Pertinent past history: cyclical vomiting and other (recurrent UTI/pyelo) Onset (ago): day(s) (2) Associated nausea: Yes Associated abdominal pain: Yes Location of pain: R flank and suprapubic Radiation: diffuse Pain consistency: constant Severity: severe Quality: stabbing Exacerbating factors: none Relieving factors: none Context: recent antibiotic use and marijuana use Associated symptoms: fever/chills, loss of appetite, malaise, nausea/vomiting, weakness and decreased urine output Related Data Home Medications Medication Instructions Recorded Confirmed methenamine hippurate 1 gram tablet 1 tab PO DAILY 07/25/21 07/25/21 Previous Rx's Medication Instructions Recorded ascorbic acid (vitamin C) 1,000 mg 1 g PO DAILY 90 Days #90 tab NS 05/11/21 tablet ferrous sulfate 324 mg (65 mg 324 mg PO DAILY #30 tab 07/08/21 iron) tablet,delayed release ibuprofen 800 mg tablet 1 tab PO Q8H PRN #60 tab 07/08/21 nicotine (polacrilex) 2 mg gum 2 mg BUCCAL Q1H #110 ea 07/08/21 doxycycline hyclate 100 mg tablet 100 mg PO Q12H #22 tab 07/11/21 metronidazole 500 mg tablet 500 mg PO Q12H #22 tab 07/11/21 fluconazole 150 mg tablet 150 mg PO ONCE #1 tab 07/26/21 ondansetron 4 mg disintegrating 4 mg PO Q8H PRN #14 tab 07/26/21 tablet oxycodone 5 mg tablet 1 tab PO Q12H PRN #10 tab 07/26/21 Allergies Allergy/AdvReac Type Severity Reaction Status Date / Time amoxicillin [Amoxicillin] Allergy Intermediate HIVES Verified 07/08/21 15:11 tramadol AdvReac Intermediate SOB Verified 07/08/21 15:11 Review of Systems Review of Systems: Constitutional : No Weight loss, pos Fever, pos Chills ENT/Mouth : No sore throat, No Rhinorrhea Eyes: No Swelling, No Redness Cardiovascular : No Chest Pain, No SOB, NoEdema Respiratory : No Cough, No Sputum, No Wheezing Gastrointestinal : Positive Nausea, Positive Vomiting, no Diarrhea, positive abdominal Pain, No Hematochezia, No Melena Genitourinary : pos Dysuria, No Urinary Frequency, No Hematuria, No Urgency , pos hesitancy Musculoskeletal : No joint pain, No Myalgias, No Joint Swelling Skin : No Skin Lesions, No rash Neuro : No Weakness, No Numbness, No Dizziness, No Headache Psych : No Anxiety/Panic, No Depression Heme/Lymph: No Bruising, No Lymphadenopathy Endocrine : No Polyuria, No Polydipsia All other systems reviewed and are negative. Gastrointestinal: Gastrointestinal: Reports nausea PMFSH Past Medical History Attestation statement: The following information was validated with the patient. Medical History Abdominal pain Abscess Acidosis, lactic Bacteremia Cocaine abuse Complicated UTI (urinary tract infection) Cyclical vomiting Hidradenitis suppurativa Hypokalemia Hypothyroidism Intractable vomiting Marijuana abuse Opioid abuse Pelvic inflammatory disease Pyelonephritis Pyelonephritis UTI (urinary tract infection) Vomiting Surgical History Tubal ligation status Family History Family History Mother CVD (cardiovascular disease) HTN (hypertension) Maternal Grandmother High cholesterol HTN (hypertension) Maternal Grandfather Prostate cancer Other Heart disease Social History Social History Household Members: Family Housing: Apartment Do you presently have visiting nurse or other home services: No Alcohol intake: never Patient Tobacco Use Status: Current everyday Tobacco user Tobacco use type: Cigarette Cigarettes Per Day: 4 Years Smoked: 20 e-Cigarette/Vaping Use: Never Used Second Hand Smoke Exposure: No Substance Use Type: Marijuana Advance Directives: Yes Advance Directives on File: Yes Advance Directives Date on File: 01/02/21 service: No Current occupational status: employed Physical Exam Vital Signs: Vital Signs: Last Vital Signs Temp 99.6 F 08/07/21 11:51 Pulse 98 08/07/21 11:51 Resp 18 08/07/21 11:51 BP 154/72 H 08/07/21 11:51 Pulse Ox 98 08/07/21 11:51 Body Mass Index 26.6 Appearance: Alert. Oriented X3. active vomiting mild acute distress. Eyes: Pupils equal, round and reactive to light. ENT: Pharynx mild dry MM Neck: Normal inspection. Neck supple. CVS: Normal heart rate and rhythm. Pulses normal. Respiratory: No respiratory distress. Breath sounds normal. Abdomen: Soft and diffuse lower abdominal ttp no rebound or guarding Back: L CVA ttp Skin: Skin warm and dry. pale skin color. Normal skin turgor. Extremities: No lower extremity edema. No calf ttp Neuro: Oriented X 3. No motor deficit. No sensory deficit. Course Course Course Narrative: empiric cefepime ordered, CT scan given fevers UA negative ?opiate withdrawal has been positive for fentanyl again with pain n/v no acute findings on CT scan, lactic acid cleared, UA negative when asked about the fentanyl patient reports that she doesn't use she is not on trazodone (false positive) states that she doesn't need support for opiate use will admit for intractable n/v MDM - Nausea/Vomiting/Diarrhea MDM Narrative Medical decision making narrative: 41 yo female with hx of recurrent UTI/pyelo - VRE and pseudomonas in past - at this time will need labs, IVF, pain and nausea medications ordered, doubt stones - typical presentation for her with vomiting/pain/possible UTI - will need cefepime for pseudomonas and S to linezolid - dispo per results and findings. Lab Data Result diagrams: 08/07/21 09:03 08/07/21 09:03 Labs: Lab Results 08/07/21 08/07/21 08/07/21 Range/Units 09:03 09:03 09:03 WBC 6.4 (4.8-10.8) X10*3/uL RBC 4.55 (4.20-5.50) X10*6/uL Hgb 10.8 L (12.0-16.0) g/dl Hct 35.9 L (37-47) % MCV 78.9 L (80-98) fL MCH 23.7 L (27.0-33.0) pg MCHC 30.1 L (31.0-35.0) g/dl RDW 17.7 H (11.0-16.0) % Plt Count 253 (160-400) X10*3/uL MPV 11.8 (9.4-12.3) fL Immature Gran % (Auto) Cancelled Neut % (Auto) Cancelled Lymph % (Auto) Cancelled [place] % (Auto) Cancelled Eos % (Auto) Cancelled Baso % (Auto) Cancelled Lymph # (Auto) Cancelled [place] # (Auto) Cancelled Eos # (Auto) Cancelled Baso # (Auto) Cancelled Abs Immat Gran (auto) Cancelled Absolute Neuts (auto) Cancelled Absolute Nucleated RBC 0.000 (0.0-0.012) X10*3/uL Nucleated RBC % (auto) 0.0 (0.0-0.2) /100WBC Neutrophils % (Manual) 70 (45-73) % Band Neutrophils % 3 (3-5) % Lymphocytes % (Manual) 21 (20-40) % Monocytes % (Manual) 6 (2-11) % Abs Neuts (Manual) 4.7 (2.2-7.9) X10*3/uL Lymphocytes # (Manual) 1.3 (0.6-4.8) X10*3/uL Monocytes # (Manual) 0.4 (0.0-1.2) X10*3/uL Platelet Estimate NORMAL (NORMAL) Plt Morphology Comment NORMAL RBC Morphology NOTED Hypochromasia 1+ (5-14) /OIF Microcytosis 1+ (5-14) /OIF Sodium 138 (135-145) mmol/L Potassium 3.5 (3.3-5.1) mmol/L Chloride 108 (96-108) mmol/L Carbon Dioxide 18 L (22-29) mmol/L Anion Gap 16 (12-20) BUN 7 L (9-16) mg/dL Creatinine 0.75 (0.5-1.4) mg/dL Estim Creat Clear Calc 93.0 Estimated GFR > 60 Random Glucose 114 (60-115) mg/dL Lactic Acid (0.5-2.0) mmol/L Lactic Acid Fup @ 2Hr (0.5-2.0) mmol/L Calcium 9.6 (8.4-10.2) mg/dL Magnesium 2.3 (1.6-2.6) mg/dL Total Bilirubin 0.6 (0.0-1.0) mg/dL Direct Bilirubin 0.2 (0.0-0.5) mg/dL AST 17 (5-31) U/L ALT 15 (0-31) U/L Alkaline Phosphatase 61 (39-117) U/L Total Protein 8.8 H (6.5-8.0) g/dL Albumin 4.7 (3.5-5.0) g/dL Lipase 76 (8-78) U/L Urine Color Urine Appearance Urine pH (5.0-8.0) Ur Specific [place] (1.005-1.025) Urine Protein (NEG-TRACE) MG/DL Urine Glucose (UA) (NEG) MG/DL Urine Ketones (NEG) MG/DL Urine Blood (NEG) Urine Nitrite (NEG) Ur Leukocyte Esterase (NEG) Urine Test (NEGATIVE) Urine Opiates Screen (Not Detect) Urine Fentanyl Screen (Not Detect) Ur Barbiturates Screen (Not Detect) Ur Phencyclidine Scrn (Not Detect) Ur Amphetamines Screen (Not Detect) U Benzodiazepines Scrn (Not Detect) Urine Cocaine Screen (Not Detect) U Marijuana (THC) Screen (Not Detect) COVID-19 (MILLICENT) Negative (Negative) COVID-19 Clin Com See Note 08/07/21 08/07/21 08/07/21 Range/Units 09:03 10:33 10:33 WBC (4.8-10.8) X10*3/uL RBC (4.20-5.50) X10*6/uL Hgb (12.0-16.0) g/dl Hct (37-47) % MCV (80-98) fL MCH (27.0-33.0) pg MCHC (31.0-35.0) g/dl RDW (11.0-16.0) % Plt Count (160-400) X10*3/uL MPV (9.4-12.3) fL Immature Gran % (Auto) Neut % (Auto) Lymph % (Auto) [place] % (Auto) Eos % (Auto) Baso % (Auto) Lymph # (Auto) [place] # (Auto) Eos # (Auto) Baso # (Auto) Abs Immat Gran (auto) Absolute Neuts (auto) Absolute Nucleated RBC (0.0-0.012) X10*3/uL Nucleated RBC % (auto) (0.0-0.2) /100WBC Neutrophils % (Manual) (45-73) % Band Neutrophils % (3-5) % Lymphocytes % (Manual) (20-40) % Monocytes % (Manual) (2-11) % Abs Neuts (Manual) (2.2-7.9) X10*3/uL Lymphocytes # (Manual) (0.6-4.8) X10*3/uL Monocytes # (Manual) (0.0-1.2) X10*3/uL Platelet Estimate (NORMAL) Plt Morphology Comment RBC Morphology Hypochromasia /OIF Microcytosis /OIF Sodium (135-145) mmol/L Potassium (3.3-5.1) mmol/L Chloride (96-108) mmol/L Carbon Dioxide (22-29) mmol/L Anion Gap (12-20) BUN (9-16) mg/dL Creatinine (0.5-1.4) mg/dL Estim Creat Clear Calc Estimated GFR Random Glucose (60-115) mg/dL Lactic Acid 3.1 H* (0.5-2.0) mmol/L Lactic Acid Fup @ 2Hr (0.5-2.0) mmol/L Calcium (8.4-10.2) mg/dL Magnesium (1.6-2.6) mg/dL Total Bilirubin (0.0-1.0) mg/dL Direct Bilirubin (0.0-0.5) mg/dL AST (5-31) U/L ALT (0-31) U/L Alkaline Phosphatase (39-117) U/L Total Protein (6.5-8.0) g/dL Albumin (3.5-5.0) g/dL Lipase (8-78) U/L Urine Color YELLOW Urine Appearance HAZY Urine pH 7.0 (5.0-8.0) Ur Specific [place] 1.020 (1.005-1.025) Urine Protein NEG (NEG-TRACE) MG/DL Urine Glucose (UA) NEG (NEG) MG/DL Urine Ketones NEG (NEG) MG/DL Urine Blood NEG (NEG) Urine Nitrite NEG (NEG) Ur Leukocyte Esterase NEG (NEG) Urine Test NEGATIVE (NEGATIVE) Urine Opiates Screen (Not Detect) Urine Fentanyl Screen (Not Detect) Ur Barbiturates Screen (Not Detect) Ur Phencyclidine Scrn (Not Detect) Ur Amphetamines Screen (Not Detect) U Benzodiazepines Scrn (Not Detect) Urine Cocaine Screen (Not Detect) U Marijuana (THC) Screen (Not Detect) COVID-19 (MILLICENT) (Negative) COVID-19 Clin Com 08/07/21 08/07/21 Range/Units 10:33 11:23 WBC (4.8-10.8) X10*3/uL RBC (4.20-5.50) X10*6/uL Hgb (12.0-16.0) g/dl Hct (37-47) % MCV (80-98) fL MCH (27.0-33.0) pg MCHC (31.0-35.0) g/dl RDW (11.0-16.0) % Plt Count (160-400) X10*3/uL MPV (9.4-12.3) fL Immature Gran % (Auto) Neut % (Auto) Lymph % (Auto) [place] % (Auto) Eos % (Auto) Baso % (Auto) Lymph # (Auto) [place] # (Auto) Eos # (Auto) Baso # (Auto) Abs Immat Gran (auto) Absolute Neuts (auto) Absolute Nucleated RBC (0.0-0.012) X10*3/uL Nucleated RBC % (auto) (0.0-0.2) /100WBC Neutrophils % (Manual) (45-73) % Band Neutrophils % (3-5) % Lymphocytes % (Manual) (20-40) % Monocytes % (Manual) (2-11) % Abs Neuts (Manual) (2.2-7.9) X10*3/uL Lymphocytes # (Manual) (0.6-4.8) X10*3/uL Monocytes # (Manual) (0.0-1.2) X10*3/uL Platelet Estimate (NORMAL) Plt Morphology Comment RBC Morphology Hypochromasia /OIF Microcytosis /OIF Sodium (135-145) mmol/L Potassium (3.3-5.1) mmol/L Chloride (96-108) mmol/L Carbon Dioxide (22-29) mmol/L Anion Gap (12-20) BUN (9-16) mg/dL Creatinine (0.5-1.4) mg/dL Estim Creat Clear Calc Estimated GFR Random Glucose (60-115) mg/dL Lactic Acid (0.5-2.0) mmol/L Lactic Acid Fup @ 2Hr 1.2 (0.5-2.0) mmol/L Calcium (8.4-10.2) mg/dL Magnesium (1.6-2.6) mg/dL Total Bilirubin (0.0-1.0) mg/dL Direct Bilirubin (0.0-0.5) mg/dL AST (5-31) U/L ALT (0-31) U/L Alkaline Phosphatase (39-117) U/L Total Protein (6.5-8.0) g/dL Albumin (3.5-5.0) g/dL Lipase (8-78) U/L Urine Color Urine Appearance Urine pH (5.0-8.0) Ur Specific [place] (1.005-1.025) Urine Protein (NEG-TRACE) MG/DL Urine Glucose (UA) (NEG) MG/DL Urine Ketones (NEG) MG/DL Urine Blood (NEG) Urine Nitrite (NEG) Ur Leukocyte Esterase (NEG) Urine Test (NEGATIVE) Urine Opiates Screen POSITIVE H (Not Detect) Urine Fentanyl Screen POSITIVE H (Not Detect) Ur Barbiturates Screen Not Detected (Not Detect) Ur Phencyclidine Scrn Not Detected (Not Detect) Ur Amphetamines Screen Not Detected (Not Detect) U Benzodiazepines Scrn Not Detected (Not Detect) Urine Cocaine Screen Not Detected (Not Detect) U Marijuana (THC) Screen POSITIVE H (Not Detect) COVID-19 (MILLICENT) (Negative) COVID-19 Clin Com Critical Care Time Critical Care Time Critical Care Time: Yes Total Critical Care Time: 45 Attestation: 2L of IVF, review of records, admission to hospital I attest to this time spent taking care of the patient Discharge Plan Discharge Clinical Impression: Cyclical vomiting, intractable, Abdominal pain, Fever, Acidosis, lactic, Positive urine drug screen Patient Disposition: Admitted As Inpatient
[2021-08-07] MEDS: Ketorolac Tromethamine 15 MG/ML VIAL 30 MG IVPUSH (08:52)
[2021-08-07] MEDS: Prochlorperazine Edisylate 10 MG/2 ML VIAL IVPUSH (08:52)
[2021-08-07] MEDS: Morphine Sulfate 4 MG/ML CARTRIDGE IVPUSH (08:53)
[2021-08-07] MEDS: 0.9 % Sodium Chloride 1,000 ML 999 ML IVCONT ×2 (08:53→08:58)
[2021-08-07] MEDS: diphenhydrAMINE HCL 50 MG/ML VIAL 25 MG IVPUSH (08:53)
--- NOTE | 2021-08-07 09:00 | PC.NURSE ---
pt alert and oriented x4, vss. Pt state she is on prophylactic antibiotic, this morning when she woke up she started vomiting and not able to keep her medication down. She also reports fever, chills, loss of appetite, weakness and decreased urine output. she also thinks she is dehydrated because she has not been voiding as much. On arrival to ed pt's diaphoretic, and reports feeling very cold, rectal temp 100.9. pt actively vomiting. pt denies sob/dizziness/headache. she denies being exposed to anyone sick. Pt was a difficult stick however an iv was established in her L AC with multiple attempts.
[2021-08-07 09:17] LABS: Red Cell Distribution Width 17.7 % (11.0-16.0)
[2021-08-07 09:19] LABS: Hematocrit 35.9 % (37-47); Hemoglobin 10.8 g/dl (12.0-16.0); Mean Corpuscular HGB Conc 30.1 g/dl (31.0-35.0); Mean Corpuscular Hemoglobin 23.7 pg (27.0-33.0); Mean Corpuscular Volume 78.9 fL (80-98); Mean Platelet Volume 11.8 fL (9.4-12.3); Platelet Count 253 X10*3/uL (160-400); Red Blood Count 4.55 X10*6/uL (4.20-5.50)
[2021-08-07 09:20] LABS: PLT ABN DIST 1; WBC ABN SCTR FOR CBC 1
[2021-08-07] MEDS: cefEPime HCl 2 GM in 0.9 % Sodium Chloride 50 ML IV (09:21)
[2021-08-07 09:30] LABS: COVID-19 Test Negative (Negative)
[2021-08-07 09:31] LABS: Alanine Aminotransferase 15 U/L (0-31); Albumin Level 4.7 g/dL (3.5-5.0); Alkaline Phosphatase 61 U/L (39-117); Anion Gap 16 (12-20); Aspartate Amino Transferase 17 U/L (5-31); Bilirubin Direct 0.2 mg/dL (0.0-0.5); Bilirubin Total 0.6 mg/dL (0.0-1.0); Blood Urea Nitrogen 7 mg/dL (9-16); Calcium 9.6 mg/dL (8.4-10.2); Carbon Dioxide 18 mmol/L (22-29); Chloride 108 mmol/L (96-108); Estimated Glomerular Filt Rate > 60; Glucose Random 114 mg/dL (60-115); Lipase 76 U/L (8-78); Magnesium 2.3 mg/dL (1.6-2.6); Potassium 3.5 mmol/L (3.3-5.1); Sodium 138 mmol/L (135-145); Total Protein 8.8 g/dL (6.5-8.0)
[2021-08-07 09:45] LABS: Lactic Acid 3.1 mmol/L (0.5-2.0)
[2021-08-07 09:57] LABS: Band Neutrophils Percent 3 % (3-5); Lymphocytes Percent Manual 21 % (20-40); Monocytes Percent Manual 6 % (2-11); Neutrophils Percent Manual 70 % (45-73); RBC Morphology NOTED
[2021-08-07 09:58] LABS: Hypochromasia 1+ (5-14) /OIF; Microcytosis 1+ (5-14) /OIF; Platelet Estimate NORMAL (NORMAL); Platelet Morphology Comment NORMAL
[2021-08-07 09:59] LABS: Lymphocytes Absolute Manual 1.3 X10*3/uL (0.6-4.8); Monocytes Absolute Manual 0.4 X10*3/uL (0.0-1.2); Neutrophils Absolute Manual 4.7 X10*3/uL (2.2-7.9); White Blood Count 6.4 X10*3/uL (4.8-10.8)
[2021-08-07 10:48] LABS: Appearance Urine HAZY; Color Urine YELLOW; Glucose Urine UA NEG (NEG); Leukocyte Esterase Urine NEG (NEG); Nitrite Urine NEG (NEG); Urine Blood NEG (NEG); Urine Ketones NEG (NEG); Urine Protein NEG (NEG-TRACE)
[2021-08-07 10:51] LABS: UPreg QC Valid YES; Urine Pregnancy NEGATIVE (NEGATIVE)
[2021-08-07 11:01] LABS: Amphetamine Screen Urine Not Detected (Not Detect); Barbiturates, Urine Not Detected (Not Detect); Benzodiazepines Screen Urine Not Detected (Not Detect); Cannabinoid Screen Urine POSITIVE (Not Detect); Cocaine Screen Urine Not Detected (Not Detect); Fentanyl, urine POSITIVE (Not Detect); Opiate Screen Urine POSITIVE (Not Detect); Phencyclidine Screen Urine Not Detected (Not Detect)
[2021-08-07 11:13] LABS: Reflex Lactate? Lactic Acid Added
[2021-08-07] MEDS: Acetaminophen 325 MG TABLET 650 MG PO ×2 (11:27→18:28)
[2021-08-07 11:46] LABS: ~Lactic Acid-LAB USE ONLY 1.2 mmol/L (0.5-2.0)
[2021-08-07] MEDS: Haloperidol Lactate 5 MG/ML VIAL IM (13:19)
--- NOTE | 2021-08-07 13:48 | P.HPHOSP_ITS ---
History of Present Illness Date of Service: 08/07/21 Chief Complaint: lower abdominal pain, nausea and vomiting This is a 41 yo F, well known to [facility] and hospitalist services for recurrent admissions surrounding GI and issues, namely recurrent UTI/Pyelonephritis and cyclical vomiting syndrome (suspected Marijuana induced). The patient was last admitted to [facility] from 07/24-07/26 where she was treated for cyclical vomiting syndrome. Prior to this she was admitted from 07/09 to 07/11 for infectious etiology (UTI vs PID). Priot to his was 07/07 to 07/08 UTI. During one of these admissions, she admitted to using cocaine (an although her fentanyl / opiate screen was positive, she denied use). She has, during each admission, been encouraged complete cessation of all substances, particularly cannabis as this was felt to worsen her cyclical vomiting syndrome. The patient now presents with a several day history of nausea, vomiting and inability to take anything by mouth. She reports that her symptoms were initi ally mild, but this AM she woke up with severe lower abdominal cramping pain and was unable to keep even water down, so she came to the ED. She denied any hematemesis or melena. She endorsed subjective fevers and chills. She denied opiate (including fentanyl) use. She endorses marijuana consumption. In regards to her history of PID -- she reported that she has completed f/u with [facility] as an outpatient since last admission and reports everything was fine. She denies any vaginal discharge Upon arrival to the ED, the patient was found to have an isolated temp of 100.9. A UA was checked which was negative for any suggestion of UTI. She was in visible distress and required IV toradol+IV morphine for pain control. She required 3 rounds of IV anti-emetics and still vomiting after this. Due to her low grade temperature (with a history of pseudomonas / VRE UTI) + inability to keep anything down by mouth, she will be placed under observation for further treatment and diagnosis. Review of Systems Review of Systems: General - +fevers and chills, denies weakness or fatigue HEENT -denies blurred vision, denies headache, denies sore throat Cardiovascular - denies chest pain or palpitations, denies edema Respiratory - denies shortness of breath, coughing, wheezing Gastrointestinal - +nausea/vomiting, +bilateral lower quad pain; no hematemesis / melena - denies flank pain, denies dysuria, denies frequency or urgency Musculoskeletal - denies back pain, denies hip pain, denies knee pain, denies shoulder pain Neurological - denies any focal weakness or numbness Skin, denies any bruising or redness Psychiatric - denies any suicidal ideation, hallucinations, homicidal ideation Endocrinology - denies intolerance to hot / cold temperatures [facility] Medical History Abdominal pain Abscess Acidosis, lactic Bacteremia Cocaine abuse Complicated UTI (urinary tract infection) Cyclical vomiting Hidradenitis suppurativa Hypokalemia Hypothyroidism Intractable vomiting Marijuana abuse Opioid abuse Pelvic inflammatory disease Pyelonephritis Pyelonephritis UTI (urinary tract infection) Vomiting Family History Mother CVD (cardiovascular disease) HTN (hypertension) Maternal Grandmother High cholesterol HTN (hypertension) Maternal Grandfather Prostate cancer Other Heart disease Pertinent family history: . Surgical History Tubal ligation status Social History Household Members: Family Housing: Apartment Do you presently have visiting nurse or other home services: No Alcohol intake: never Patient Tobacco Use Status: Current everyday Tobacco user Tobacco use type: Cigarette Cigarettes Per Day: 4 Years Smoked: 20 e-Cigarette/Vaping Use: Never Used Second Hand Smoke Exposure: No Substance Use Type: Marijuana Advance Directives: Yes Advance Directives on File: Yes Advance Directives Date on File: 01/02/21 service: No Current occupational status: employed Meds Allergies Allergy/AdvReac Type Severity Reaction Status Date / Time amoxicillin [Amoxicillin] Allergy Intermediate HIVES Verified 07/08/21 15:11 tramadol AdvReac Intermediate SOB Verified 07/08/21 15:11 Active Medications: Current Medications Acetaminophen (Acetaminophen 325 Mg Tablet) 650 mg PO Q6H PRN PRN Reason: Pain, Mild (Pain Scale 1-3) Dextrose/Sodium Chloride (D51/2ns) 1,000 mls @ 100 mls/hr IVCONT .Q10H VICTOR M Morphine Sulfate (Morphine Sulfate 4 Mg/Ml Cartridge) 2 mg IVPUSH Q4H PRN; Protocol PRN Reason: Pain, Severe (Pain Scale 7-10) Pharmacy Consult (Consult Rx Perform Med Rec) 1 each MISCELLANE ONCE PRN PRN Reason: Consult order Sodium Chloride (0.9 % Sodium Chloride Flush 3 Ml Syringe) 3 ml IVFLUSH QSHIFT [facility] Home Medications Medication Instructions Recorded Confirmed Last Taken Type methenamine hippurate 1 gram tablet 1 tab PO DAILY 07/25/21 07/25/21 07/24/21 Hi story Physical Exam Vital Signs and Narrative: Vital Signs: Last Vital Signs Temp 98.8 F 08/07/21 13:42 Pulse 86 08/07/21 13:42 Resp 20 08/07/21 13:42 BP 146/82 H 08/07/21 13:42 Pulse Ox 98 08/07/21 13:42 Body Mass Index 26.6 Const: Other: Constitutional - Awake and Alert,appears nauseous and in pain Eyes - PERRLA, EOMI Cardiovascular - S1S2, RRR, No edema Respiratory - Normal lung expansion, Normal respiratory effort, No respiratory distress, CTA bilaterally Gastrointestinal - soft without rebound or guarding; bilateral lower quad TTP; +BS - No CVA tenderness Extremities - no calf tenderness bilaterally, no swelling Musculoskeletal - Normal inspection, normal ROM Skin - Warm/Dry Neurological - Alert & oriented x3, No focal deficit Psychological - Appropriate affect Results Labs CBC and Chem 7: 08/07/21 09:03 08/07/21 09:03 Labs: Laboratory Results - last 24 hr 08/07/21 08/07/21 08/07/21 09:03 09:03 09:03 MCV 78.9 L MCH 23.7 L MCHC 30.1 L RDW 17.7 H Plt Count 253 MPV 11.8 Immature Gran % (Auto) Cancelled Neut % (Auto) Cancelled Lymph % (Auto) Cancelled [place] % (Auto) Cancelled Eos % (Auto) Cancelled Baso % (Auto) Cancelled Lymph # (Auto) Cancelled [place] # (Auto) Cancelled Eos # (Auto) Cancelled Baso # (Auto) Cancelled Abs Immat Gran (auto) Cancelled Absolute Neuts (auto) Cancelled Absolute Nucleated RBC 0.000 Nucleated RBC % (auto) 0.0 Neutrophils % (Manual) 70 Band Neutrophils % 3 Lymphocytes % (Manual) 21 Monocytes % (Manual) 6 Abs Neuts (Manual) 4.7 Lymphocytes # (Manual) 1.3 Monocytes # (Manual) 0.4 Platelet Estimate NORMAL Plt Morphology Comment NORMAL RBC Morphology NOTED Hypochromasia 1+ (5-14) Microcytosis 1+ (5-14) Anion Gap 16 Estim Creat Clear Calc 93.0 Estimated GFR > 60 Random Glucose 114 Lactic Acid Lactic Acid Fup @ 2Hr Calcium 9.6 Magnesium 2.3 Total Bilirubin 0.6 Direct Bilirubin 0.2 AST 17 ALT 15 Alkaline Phosphatase 61 Total Protein 8.8 H Albumin 4.7 Lipase 76 Urine Color Urine Appearance Urine pH Ur Specific [place] Urine Protein Urine Glucose (UA) Urine Ketones Urine Blood Urine Nitrite Ur Leukocyte Esterase Urine Test Urine Opiates Screen Urine Fentanyl Screen Ur Barbiturates Screen Ur Phencyclidine Scrn Ur Amphetamines Screen U Benzodiazepines Scrn Urine Cocaine Screen U Marijuana (THC) Screen COVID-19 (MILLICENT) Negative COVID-19 Clin Com See Note 08/07/21 08/07/21 08/07/21 09:03 10:33 10:33 MCV MCH MCHC RDW Plt Count MPV Immature Gran % (Auto) Neut % (Auto) Lymph % (Auto) [place] % (Auto) Eos % (Auto) Baso % (Auto) Lymph # (Auto) [place] # (Auto) Eos # (Auto) Baso # (Auto) Abs Immat Gran (auto) Absolute Neuts (auto) Absolute Nucleated RBC Nucleated RBC % (auto) Neutrophils % (Manual) Band Neutrophils % Lymphocytes % (Manual) Monocytes % (Manual) Abs Neuts (Manual) Lymphocytes # (Manual) Monocytes # (Manual) Platelet Estimate Plt Morphology Comment RBC Morphology Hypochromasia Microcytosis Anion Gap Estim Creat Clear Calc Estimated GFR Random Glucose Lactic Acid 3.1 H* Lactic Acid Fup @ 2Hr Calcium Magnesium Total Bilirubin Direct Bilirubin AST ALT Alkaline Phosphatase Total Protein Albumin Lipase Urine Color YELLOW Urine Appearance HAZY Urine pH 7.0 Ur Specific [place] 1.020 Urine Protein NEG Urine Glucose (UA) NEG Urine Ketones NEG Urine Blood NEG Urine Nitrite NEG Ur Leukocyte Esterase NEG Urine Test NEGATIVE Urine Opiates Screen Urine Fentanyl Screen Ur Barbiturates Screen Ur Phencyclidine Scrn Ur Amphetamines Screen U Benzodiazepines Scrn Urine Cocaine Screen U Marijuana (THC) Screen COVID-19 (MILLICENT) COVID-19 Clin Com 08/07/21 08/07/21 10:33 11:23 MCV MCH MCHC RDW Plt Count MPV Immature Gran % (Auto) Neut % (Auto) Lymph % (Auto) [place] % (Auto) Eos % (Auto) Baso % (Auto) Lymph # (Auto) [place] # (Auto) Eos # (Auto) Baso # (Auto) Abs Immat Gran (auto) Absolute Neuts (auto) Absolute Nucleated RBC Nucleated RBC % (auto) Neutrophils % (Manual) Band Neutrophils % Lymphocytes % (Manual) Monocytes % (Manual) Abs Neuts (Manual) Lymphocytes # (Manual) Monocytes # (Manual) Platelet Estimate Plt Morphology Comment RBC Morphology Hypochromasia Microcytosis Anion Gap Estim Creat Clear Calc Estimated GFR Random Glucose Lactic Acid Lactic Acid Fup @ 2Hr 1.2 Calcium Magnesium Total Bilirubin Direct Bilirubin AST ALT Alkaline Phosphatase Total Protein Albumin Lipase Urine Color Urine Appearance Urine pH Ur Specific [place] Urine Protein Urine Glucose (UA) Urine Ketones Urine Blood Urine Nitrite Ur Leukocyte Esterase Urine Test Urine Opiates Screen POSITIVE H Urine Fentanyl Screen POSITIVE H Ur Barbiturates Screen Not Detected Ur Phencyclidine Scrn Not Detected Ur Amphetamines Screen Not Detected U Benzodiazepines Scrn Not Detected Urine Cocaine Screen Not Detected U Marijuana (THC) Screen POSITIVE H COVID-19 (MILLICENT) COVID-19 Clin Com Imaging Radiologist's Impressions: Impressions Abdomen/Pelvis CT 08/07/21 10:53 IMPRESSION: Unremarkable exam. Assessment and Plan (1) Cyclical vomiting, intractable: Status: Acute This is a 41 yo F with a PMH of Cyclical vomiting syndrome, Recurrent UTI/Pyelo, PID, cocaine and fentanyl positive drug screens who presents to the hospital for the 3rd time in the last 1 month with complaints of intractable nausea/vomiting and lower abodminal pain which has not responded to several rounds of IV analgesics and anti-emetics in the ED. She will be admitted for further work up. 1. Intractable abdominal pain, nause and vomiting CT abdomen and pelvis is negative for any acute findings She has a history of VRE/Pseudomonas UTI in the past and did have a low grade temp in the ED. However, her UA has NO signs of UTI. She was given a dose of cefepime in the ED. At this time, will hold off on any further antibitoics. If recurrent fevers, will need workup. The patient does have a history of cyclical vomiting syndrome and continues to use marijuana despite being educated on its potential to worseng her symptoms. For now, will continue with symptomatic treatment including IV H2 blockers and anti-emetics. Will involve GI if symptoms persist. If she improves and is discharged -- may benefit from outpatient GI evaluation given recurrece of her symptoms. Question her symptoms are in part due to opiate withdrawal. Despite her denying use -- her drug screen is positive for opiates (and more specifically fentanyl). She has declined treatment for withdrawal and at this time, does not want consultation with addiction medicine. 2. Lactic acidosis NOT due to severe sepsis. Do not feel the patient has severe sepsis at this time Patients med rec is pending at the time of this note, will continue her baseline medications (as appropriate) once med rec. is completed. Full Code DVT pptx -- low risk, use mech device and early ambulation. Quality Stroke Does the patient have a stroke diagnosis?: No VTE Prior VTE?: No VTE Risk Level:: Medical - low VTE Device Contraindication: N/A - Device Ordered VTE Drug Contraindication: Treatment Not Indicated
[2021-08-07] MEDS: Morphine Sulfate 4 MG/ML CARTRIDGE 2 MG IVPUSH ×3 (14:10→23:32)
[2021-08-07] MEDS: Famotidine/PF 20 MG/2 ML VIAL IVPUSH ×2 (14:11→21:03)
[2021-08-07] MEDS: Dextrose 5 % and 0.45 % NaCl 1,000 ML 100 ML IVCONT (14:14)
--- NOTE | 2021-08-07 15:06 | PC.NURSE ---
Report given to next nurse. Safely transfered.
[2021-08-07] MEDS: ondansetron HCL 4 MG/2 ML VIAL IVPUSH (15:40)
--- NOTE | 2021-08-07 16:04 | PHA.MEDREC ---
Pharmacy Consult ? Medication Reconciliation Pharmacy has completed the medication reconciliation.
[2021-08-07] MEDS: LORazepam 0.5 MG TABLET PO (21:03)
[2021-08-08] VITALS (7 sets, daily range): BP systolic 121–145; BP diastolic 74–90; PULSE 71–94; RESP 14–20; TEMP 36.8–37.1; O2SAT 99–100
[2021-08-08] MEDS: Dextrose 5 % and 0.45 % NaCl 1,000 ML 100 ML IVCONT ×3 (01:41→18:44)
[2021-08-08] MEDS: Morphine Sulfate 4 MG/ML CARTRIDGE 2 MG IVPUSH ×5 (04:43→23:09)
[2021-08-08 06:45] LABS: MANUAL DIFF FLAG NO
[2021-08-08 06:50] LABS: Basophils Percent Auto 0.2 % (0-2); Eosinophils Percent Auto 0.6 % (0-4); Hematocrit 29.7 % (37-47); Imm Gran Abs Auto 0.01 X10*3/uL (0.00-0.03); Imm Gran Pct Auto 0.2 % (0.0-0.4); Lymphocytes Absolute Auto 1.3 X10*3/uL (1.2-4.9); Mean Corpuscular HGB Conc 30.3 g/dl (31.0-35.0); Mean Corpuscular Hemoglobin 23.7 pg (27.0-33.0); Mean Corpuscular Volume 78.2 fL (80-98); Monocytes Absolute Auto 0.5 X10*3/uL (0.1-1.2); Monocytes Percent Auto 9.8 % (2-11); Neutrophils Absolute Auto 2.9 X10*3/uL (2.0-8.3); Neutrophils Percent Auto 61.2 % (45-73); Platelet Count 223 X10*3/uL (160-400); Red Cell Distribution Width 17.3 % (11.0-16.0); White Blood Count 4.8 X10*3/uL (4.8-10.8)
[2021-08-08 07:24] LABS: Anion Gap 10 (12-20); Blood Urea Nitrogen 6 mg/dL (9-16); Calcium 8.5 mg/dL (8.4-10.2); Carbon Dioxide 22 mmol/L (22-29); Chloride 107 mmol/L (96-108); Creatinine Clr Calc Pharmacy 98.3; Estimated Glomerular Filt Rate > 60; Glucose Random 104 mg/dL (60-115); Potassium 3.4 mmol/L (3.3-5.1); Sodium 136 mmol/L (135-145)
--- NOTE | 2021-08-08 08:37 | P.DS_ITS ---
DS: Providers Provider Date of Service: 08/09/21 Date of admission: 08/07/21 13:45 Primary care physician: Unknown Physician Attending physician on discharge: Saravanan Conley Discharging clinician: Sruthi Jimenez DS: Diagnosis Discharge Diagnosis (1) Cyclical vomiting, intractable: Status: Acute (2) Acidosis, lactic: Status: Acute DS: Summary Hospital Course Hospital Course: 41 yo F with a PMH of Cyclical vomiting syndrome, Recurrent UTI/Pyelo, PID, cocaine and fentanyl positive drug screens who presents to the hospital for the 3rd time in the last 1 month with complaints of intractable nausea/vomiting and lower abodminal pain which has not responded to several rounds of IV analgesics and anti-emetics in the ED. She will be admitted for further work up. Intractable abdominal pain, nause and vomiting. CT abdomen and pelvis is negative for any acute findings. She has a history of VRE/Pseudomonas UTI in the past and did have a low grade temp in the ED. However, her UA has NO signs of UTI. She was given a dose of cefepime in the ED but no further antibiotics needed. The patient does have a history of cyclical vomiting syndrome and continues to use marijuana despite being educated on its potential to worsening of her symptoms. Treatment included IV H2 blockers and anti-emetics. Her symptoms may have been in part due to opiate withdrawal as well. Despite her denying use -- her drug screen is positive for opiates (and more specifically fentanyl). She has declined treatment for withdrawal and at this time, does not want consultation with addiction medicine. Lactic acidosis . Secondary to vomiting, not sepsis Time Spent with Patient Time attestation: Total time spent providing and/or coordinating discharge services: Discharge coordination time: Greater than 30 minutes Quality: Stroke Does the patient have a stroke diagnosis?: No Physical Exam Vital Signs: Vital Signs: Last Vital Signs Temp 98.4 F 08/08/21 07:47 Pulse 71 08/08/21 07:47 Resp 17 08/08/21 07:47 BP 139/90 H 08/08/21 07:47 Pulse Ox 100 08/08/21 07:47 Body Mass Index 26.6 Appearing in no acute distress head is normocephalic atraumatic eyes pupils are PERRLA sclera is anicteric mouth throat mucous membranes are intact and moist neck is supple no lymphadenopathy, no JVD noted lung sounds are clear to auscultation heart regular rate rhythm, clear S1, S2 positive bowel sounds, abdomen is soft, nontender neuro patient is alert x3, no focal deficits DS: Data Data Completed and Pending Labs on day of discharge: Laboratory Results - last 24 hr 08/07/21 08/07/21 08/07/21 09:03 09:03 09:03 WBC 6.4 RBC 4.55 Hgb 10.8 L Hct 35.9 L MCV 78.9 L MCH 23.7 L MCHC 30.1 L RDW 17.7 H Plt Count 253 MPV 11.8 Immature Gran % (Auto) Cancelled Neut % (Auto) Cancelled Lymph % (Auto) Cancelled [place] % (Auto) Cancelled Eos % (Auto) Cancelled Baso % (Auto) Cancelled Lymph # (Auto) Cancelled [place] # (Auto) Cancelled Eos # (Auto) Cancelled Baso # (Auto) Cancelled Abs Immat Gran (auto) Cancelled Absolute Neuts (auto) Cancelled Absolute Nucleated RBC 0.000 Nucleated RBC % (auto) 0.0 Neutrophils % (Manual) 70 Band Neutrophils % 3 Lymphocytes % (Manual) 21 Monocytes % (Manual) 6 Abs Neuts (Manual) 4.7 Lymphocytes # (Manual) 1.3 Monocytes # (Manual) 0.4 Platelet Estimate NORMAL Plt Morphology Comment NORMAL RBC Morphology NOTED Hypochromasia 1+ (5-14) Microcytosis 1+ (5-14) Sodium 138 Potassium 3.5 Chloride 108 Carbon Dioxide 18 L Anion Gap 16 BUN 7 L Creatinine 0.75 Estim Creat Clear Calc 93.0 Estimated GFR > 60 Random Glucose 114 Lactic Acid Lactic Acid Fup @ 2Hr Calcium 9.6 Magnesium 2.3 Total Bilirubin 0.6 Direct Bilirubin 0.2 AST 17 ALT 15 Alkaline Phosphatase 61 Total Protein 8.8 H Albumin 4.7 Lipase 76 Urine Color Urine Appearance Urine pH Ur Specific [place] Urine Protein Urine Glucose (UA) Urine Ketones Urine Blood Urine Nitrite Ur Leukocyte Esterase Urine Test Urine Opiates Screen Urine Fentanyl Screen Ur Barbiturates Screen Ur Phencyclidine Scrn Ur Amphetamines Screen U Benzodiazepines Scrn Urine Cocaine Screen U Marijuana (THC) Screen COVID-19 (MILLICENT) Negative COVID-19 Clin Com See Note 08/07/21 08/07/21 08/07/21 09:03 10:33 10:33 WBC RBC Hgb Hct MCV MCH MCHC RDW Plt Count MPV Immature Gran % (Auto) Neut % (Auto) Lymph % (Auto) [place] % (Auto) Eos % (Auto) Baso % (Auto) Lymph # (Auto) [place] # (Auto) Eos # (Auto) Baso # (Auto) Abs Immat Gran (auto) Absolute Neuts (auto) Absolute Nucleated RBC Nucleated RBC % (auto) Neutrophils % (Manual) Band Neutrophils % Lymphocytes % (Manual) Monocytes % (Manual) Abs Neuts (Manual) Lymphocytes # (Manual) Monocytes # (Manual) Platelet Estimate Plt Morphology Comment RBC Morphology Hypochromasia Microcytosis Sodium Potassium Chloride Carbon Dioxide Anion Gap BUN Creatinine Estim Creat Clear Calc Estimated GFR Random Glucose Lactic Acid 3.1 H* Lactic Acid Fup @ 2Hr Calcium Magnesium Total Bilirubin Direct Bilirubin AST ALT Alkaline Phosphatase Total Protein Albumin Lipase Urine Color YELLOW Urine Appearance HAZY Urine pH 7.0 Ur Specific [place] 1.020 Urine Protein NEG Urine Glucose (UA) NEG Urine Ketones NEG Urine Blood NEG Urine Nitrite NEG Ur Leukocyte Esterase NEG Urine Test NEGATIVE Urine Opiates Screen Urine Fentanyl Screen Ur Barbiturates Screen Ur Phencyclidine Scrn Ur Amphetamines Screen U Benzodiazepines Scrn Urine Cocaine Screen U Marijuana (THC) Screen COVID-19 (MILLICENT) COVID-19 Clin Com 08/07/21 08/07/21 08/08/21 10:33 11:23 05:58 WBC 4.8 RBC 3.80 L Hgb 9.0 L Hct 29.7 L MCV 78.2 L MCH 23.7 L MCHC 30.3 L RDW 17.3 H Plt Count 223 MPV 13.0 H Immature Gran % (Auto) 0.2 Neut % (Auto) 61.2 Lymph % (Auto) 28.0 [place] % (Auto) 9.8 Eos % (Auto) 0.6 Baso % (Auto) 0.2 Lymph # (Auto) 1.3 [place] # (Auto) 0.5 Eos # (Auto) 0.0 Baso # (Auto) 0.0 Abs Immat Gran (auto) 0.01 Absolute Neuts (auto) 2.9 Absolute Nucleated RBC 0.000 Nucleated RBC % (auto) 0.0 Neutrophils % (Manual) Band Neutrophils % Lymphocytes % (Manual) Monocytes % (Manual) Abs Neuts (Manual) Lymphocytes # (Manual) Monocytes # (Manual) Platelet Estimate Plt Morphology Comment RBC Morphology Hypochromasia Microcytosis Sodium Potassium Chloride Carbon Dioxide Anion Gap BUN Creatinine Estim Creat Clear Calc Estimated GFR Random Glucose Lactic Acid Lactic Acid Fup @ 2Hr 1.2 Calcium Magnesium Total Bilirubin Direct Bilirubin AST ALT Alkaline Phosphatase Total Protein Albumin Lipase Urine Color Urine Appearance Urine pH Ur Specific [place] Urine Protein Urine Glucose (UA) Urine Ketones Urine Blood Urine Nitrite Ur Leukocyte Esterase Urine Test Urine Opiates Screen POSITIVE H Urine Fentanyl Screen POSITIVE H Ur Barbiturates Screen Not Detected Ur Phencyclidine Scrn Not Detected Ur Amphetamines Screen Not Detected U Benzodiazepines Scrn Not Detected Urine Cocaine Screen Not Detected U Marijuana (THC) Screen POSITIVE H COVID-19 (MILLICENT) COVID-[facility] 08/08/21 05:58 WBC RBC Hgb Hct MCV MCH MCHC RDW Plt Count MPV Immature Gran % (Auto) Neut % (Auto) Lymph % (Auto) [place] % (Auto) Eos % (Auto) Baso % (Auto) Lymph # (Auto) [place] # (Auto) Eos # (Auto) Baso # (Auto) Abs Immat Gran (auto) Absolute Neuts (auto) Absolute Nucleated RBC Nucleated RBC % (auto) Neutrophils % (Manual) Band Neutrophils % Lymphocytes % (Manual) Monocytes % (Manual) Abs Neuts (Manual) Lymphocytes # (Manual) Monocytes # (Manual) Platelet Estimate Plt Morphology Comment RBC Morphology Hypochromasia Microcytosis Sodium 136 Potassium 3.4 Chloride 107 Carbon Dioxide 22 Anion Gap 10 L BUN 6 L Creatinine 0.71 Estim Creat Clear Calc 98.3 Estimated GFR > 60 Random Glucose 104 Lactic Acid Lactic Acid Fup @ 2Hr Calcium 8.5 D Magnesium Total Bilirubin Direct Bilirubin AST ALT Alkaline Phosphatase Total Protein Albumin Lipase Urine Color Urine Appearance Urine pH Ur Specific [place] Urine Protein Urine Glucose (UA) Urine Ketones Urine Blood Urine Nitrite Ur Leukocyte Esterase Urine Test Urine Opiates Screen Urine Fentanyl Screen Ur Barbiturates Screen Ur Phencyclidine Scrn Ur Amphetamines Screen U Benzodiazepines Scrn Urine Cocaine Screen U Marijuana (THC) Screen COVID-19 (MILLICENT) COVID-19 [facility] Discharge Plan Discharge Anticipated Discharge Date/Time: 08/09/21 08:09 Patient Disposition: Home, Self-Care Discharge Diagnosis: Cyclical vomiting Abdominal pain Referrals: Physician,Unknown [Primary Care Provider] - 1 Week Discharge Medications: New ondansetron HCl [Zofran] 4 mg tablet 4 mg PO Q8H PRN (Reason: nausea and vomiting) Qty: 6 RF: 0 oxycodone 5 mg tablet 5 mg PO Q8H PRN (Reason: pain) Qty: 6 RF: 0 Continued ascorbic acid (vitamin C) 1,000 mg tablet 1 g PO DAILY 90 Days Qty: 90 RF: 0 methenamine hippurate 1 gram tablet 1 tab PO DAILY RF: 0 ondansetron 4 mg tablet,disintegrating 4 mg PO Q8H PRN (Reason: nausea and vomiting) Qty: 14 RF: 0 ferrous sulfate 324 mg (65 mg iron) Tablet,Delayed Release (Dr/Ec) 324 mg PO DAILY Qty: 30 RF: 0 nicotine (polacrilex) 2 mg gum 2 mg buccal Q1H Qty: 110 RF: 0 ibuprofen 800 mg tablet 1 tab PO Q8H PRN (Reason: Pain, Moderate) RF: 0 Discontinued oxycodone 5 mg tablet 1 tab PO Q12H PRN (Reason: pain) Qty: 10 RF: 0 Discharge Orders: Discharge Order (Routine); Ordered 08/09/21 Ordered By: Sruthi Jimenez Diet: advance to usual diet Activity on Discharge: As tolerated Stand Alone Forms: Patient Portal Discharge page Care Plan Goals: complete resolution of abdominal pain and vomiting, stop using marijuana which may be contributing to some of your symptoms Health Concerns: cyclical vomiting Plan of Treatment: follow-up with primary care provider as needed Assessment: Discharge summary
--- NOTE | 2021-08-08 09:43 | MHC.CM.PN ---
met with pt who is indepdent pt has no community support servceis ?care team rferral [facility]
[2021-08-08] MEDS: ondansetron HCL 4 MG/2 ML VIAL IVPUSH (09:46)
[2021-08-08] MEDS: Famotidine/PF 20 MG/2 ML VIAL IVPUSH ×2 (09:46→20:20)
[2021-08-08] MEDS: 0.9 % Sodium Chloride Flush 3 ML SYRINGE IVFLUSH ×2 (09:46→20:20)
--- NOTE | 2021-08-08 17:10 | PM.IMPN ---
Progress Note: A&P (1) Cyclical vomiting, intractable: Status: Acute Assessment and Plan: This is a 41 yo F with a PMH of Cyclical vomiting syndrome, Recurrent UTI/Pyelo, PID, cocaine and fentanyl positive drug screens who presents to the hospital for the 3rd time in the last 1 month with complaints of intractable nausea/vomiting and lower abodminal pain which has not responded to several rounds of IV analgesics and anti-emetics in the ED. She will be admitted for further work up. Intractable abdominal pain, nausea and vomiting. Hx cyclical vomiting from marijuana CT abdomen and pelvis is negative for any acute findings She has a history of VRE/Pseudomonas UTI, neg UA continue antiemetics advance diet Fever no source of infection noted follow cx follow overnight Lactic acidosis NOT due to severe sepsis. Do not feel the patient has severe sepsis at this time Full Code DVT pptx -- low risk, use mech device and early ambulation. Attending Dr. Conley Subjective Subjective Date of Service: 08/08/21 Review of Systems Follow up abdominal pain nausea and vomiting feeling better diet advanced Physical Exam Vital Signs: Vital Signs: Last Vital Signs Temp 98.4 F 08/08/21 15:40 Pulse 94 08/08/21 15:40 Resp 20 08/08/21 15:40 BP 121/74 08/08/21 15:40 Pulse Ox 100 08/08/21 15:40 Body Mass Index 26.6 Appearing in no acute distress lung sounds are clear to auscultation heart regular rate rhythm, clear S1, S2 positive bowel sounds, abdomen is soft, nontender neuro patient is alert x3, no focal deficits Objective Data Current Medications Acetaminophen (Acetaminophen 325 Mg Tablet) 650 mg PO Q6H PRN PRN Reason: Pain, Mild (Pain Scale 1-3) Last Admin: 08/07/21 18:28 Dose: 650 mg Documented by: Famotidine (Famotidine/Pf 20 Mg/2 Ml Vial) 20 mg IVPUSH BID [facility] Last Admin: 08/08/21 09:46 Dose: 20 mg Documented by: Dextrose/Sodium Chloride (D51/2ns) 1,000 mls @ 100 mls/hr IVCONT .Q10H [facility] Last Infusion: 08/08/21 11:03 Dose: 100 mls/hr Documented by: Morphine Sulfate (Morphine Sulfate 4 Mg/Ml Cartridge) 2 mg IVPUSH Q4H PRN; Protocol PRN Reason: Pain, Severe (Pain Scale 7-10) Last Admin: 08/08/21 14:50 Dose: 2 mg Documented by: Ondansetron HCl (Ondansetron Hcl 4 Mg/2 Ml Vial) 4 mg IVPUSH Q8H PRN PRN Reason: Nausea and Vomiting Last Admin: 08/08/21 09:46 Dose: 4 mg Documented by: Pharmacy Consult (Consult Rx Perform Med Rec) 1 each MISCELLANE ONCE PRN PRN Reason: Consult order Sodium Chloride (0.9 % Sodium Chloride Flush 3 Ml Syringe) 3 ml IVFLUSH QSHIFT VICTOR M Last Admin: 08/08/21 17:00 Dose: Not Given Documented by: Labs CBC & Chem 7: 08/08/21 05:58 08/08/21 05:58 Labs: Laboratory Results - last 24 hr 08/08/21 08/08/21 05:58 05:58 MCV 78.2 L MCH 23.7 L MCHC 30.3 L RDW 17.3 H Plt Count 223 MPV 13.0 H Immature Gran % (Auto) 0.2 Neut % (Auto) 61.2 Lymph % (Auto) 28.0 Ellis % (Auto) 9.8 Eos % (Auto) 0.6 Baso % (Auto) 0.2 Lymph # (Auto) 1.3 Ellis # (Auto) 0.5 Eos # (Auto) 0.0 Baso # (Auto) 0.0 Abs Immat Gran (auto) 0.01 Absolute Neuts (auto) 2.9 Absolute Nucleated RBC 0.000 Nucleated RBC % (auto) 0.0 Anion Gap 10 L Estim Creat Clear Calc 98.3 Estimated GFR > 60 Random Glucose 104 Calcium 8.5 D Microbiology Microbiology Results: Microbiology 08/07/21 09:01 Blood - Venous Blood Culture - Preliminary No growth after 24 hours. 08/07/21 08:52 Blood - Venous Blood Culture - Preliminary No growth after 24 hours. Quality Stroke Does the patient have a stroke diagnosis?: No VTE Prior VTE?: No VTE Risk Level:: Medical - low VTE Device Contraindication: N/A - Device Ordered VTE Drug Contraindication: Treatment Not Indicated
[2021-08-08] MEDS: LORazepam 0.5 MG TABLET PO (20:20)
[2021-08-09 03:24] VITALS: BP 136/81; PULSE 72; RESP 16; TEMP 36.6; O2SAT 99
[2021-08-09] MEDS: Morphine Sulfate 4 MG/ML CARTRIDGE 2 MG IVPUSH ×2 (03:27→08:27)
[2021-08-09] MEDS: Dextrose 5 % and 0.45 % NaCl 1,000 ML 100 ML IVCONT (05:59)
[2021-08-09 07:27] VITALS: BP 135/83; PULSE 81; RESP 16; TEMP 36.8; O2SAT 97
[2021-08-09 08:27] VITALS: RESP 18
[2021-08-09] MEDS: 0.9 % Sodium Chloride Flush 3 ML SYRINGE IVFLUSH (08:27)
[2021-08-09] MEDS: Famotidine/PF 20 MG/2 ML VIAL IVPUSH (08:27)
--- NOTE | 2021-08-09 09:59 | MHC.CM.PN ---
CM MET W/PT TO DISCUSS CARE TEAM/RECOVERY SUPPORT CONSULT, PT IS DECLINING NEED TO SEE STAFF FROM EITHER AND REPORTS SHE JUST WANTS TO GO HOME AND DOESN'T NEED ANY OTHER SERVICES, PT WILL D/C HOME SELF-CARE, PT TO ARRANGE TRANSPORT.
== END 2021-08-09 10:10 | disposition home or self-care (01) ==
LOC: HO.ED 13:15 → HO.EDOVER 13:52 → HO.IMC 14:21 → HO.S3 08-09 02:01
PROVIDERS: Admitting Provider Family Medicine; Emergency Provider Emergency Medicine; Visit Provider Nurse Practitioner Acute Care
DX: R11.15 Cyclical vomiting syndrome unrelated to migraine (principal); E87.2 Acidosis; R10.9 Unspecified abdominal pain; R50.9 Fever, unspecified; N39.0 Urinary tract infection, site not specified; N73.9 Female pelvic inflammatory disease, unspecified; E87.6 Hypokalemia; E03.9 Hypothyroidism, unspecified; F12.10 Cannabis abuse, uncomplicated; F14.10 Cocaine abuse, uncomplicated; F17.210 Nicotine dependence, cigarettes, uncomplicated; Z20.822 Contact with and (suspected) exposure to COVID-19; Z79.891 Long term (current) use of opiate analgesic
CPT/HCPCS: 36415; 74176; 80048; 80076; 80307; 81003; 81025; 83605; 83690; 83735; 85007; 85025; 85027; 87040; 87635; 99218; 99225; 99284; J0692; J1200; J1885; J2270; J2405

== ENCOUNTER 2021-08-14 07:15 | Emergency (ER) | payer OTHER, SELFPAY ==
[2021-08-14 07:21] VITALS: BP 172/104; PULSE 98; O2SAT 99
[2021-08-14 07:28] VITALS: BP 161/101; PULSE 109; RESP 20; O2SAT 100; BMI 25.7
--- NOTE | 2021-08-14 07:32 | ED.NAVMDI ---
HPI - Nausea/Vomiting/Diarrhea General Chief complaint: Nausea/Vomiting/Diarrhea Stated complaint: VOMITING X'S 2 DAYS Time Seen by Provider: 08/14/21 07:23 Source: patient, EMS and old records reviewed Mode of arrival: EMS Limitations: no limitations History of Present Illness HPI Narrative: 41 yo female with recurrent visits to the ED for lower abdominal pain and cyclical vomiting - attributed to either THC abuse, UTI/pyelo, and she has been testing positive for fentanyl and cocaine so there is some concern for a component of opiate withdrawal. At this time she c/o MD elicited complaint: nausea, vomiting and abdominal pain Pertinent past history: cyclical vomiting Onset (ago): day(s) (2) Description of vomiting: food contents, watery and bilious Associated nausea: Yes Associated abdominal pain: Yes Location of pain: suprapubic Radiation: diffuse Pain consistency: constant Severity: severe Quality: stabbing Exacerbating factors: movement Relieving factors: none Context: marijuana use Associated symptoms: fever/chills, loss of appetite, malaise and nausea/vomiting Treatment prior to arrival: other Related Data Home Medications Medication Instructions Recorded Confirmed methenamine hippurate 1 gram tablet 1 tab PO DAILY 07/25/21 08/07/21 ibuprofen 800 mg tablet 1 tab PO Q8H PRN 08/07/21 08/07/21 Previous Rx's Medication Instructions Recorded ascorbic acid (vitamin C) 1,000 mg 1 g PO DAILY 90 Days #90 tab NS 05/11/21 tablet ferrous sulfate 324 mg (65 mg 324 mg PO DAILY #30 tab 07/08/21 iron) tablet,delayed release nicotine (polacrilex) 2 mg gum 2 mg BUCCAL Q1H #110 ea 07/08/21 ondansetron 4 mg disintegrating 4 mg PO Q8H PRN #14 tab 07/26/21 tablet ondansetron HCl 4 mg tablet 4 mg PO Q8H PRN #6 tab 08/08/21 (Zofran) oxycodone 5 mg tablet 5 mg PO Q8H PRN #6 tab 08/08/21 buprenorphine 4 mg-naloxone 1 mg 1 film SUBLINGUAL DAILY #5 ea 08/14/21 sublingual film (Suboxone) ondansetron 4 mg disintegrating 4 mg PO Q8H PRN #20 tab 08/14/21 tablet promethazine 25 mg rectal 25 mg MA Q6H PRN #12 ea 08/14/21 suppository Allergies Allergy/AdvReac Type Severity Reaction Status Date / Time amoxicillin [Amoxicillin] Allergy Intermediate HIVES Verified 07/08/21 15:11 tramadol AdvReac Intermediate SOB Verified 07/08/21 15:11 Review of Systems Review of Systems: Constitutional : No Weight loss, No Fever, No Chills ENT/Mouth : No sore throat, No Rhinorrhea Eyes: No Swelling, No Redness Cardiovascular : No Chest Pain, No SOB, NoEdema Respiratory : No Cough, No Sputum, No Wheezing Gastrointestinal : Positive Nausea, Positive Vomiting, no Diarrhea, positive abdominal Pain, No Hematochezia, No Melena Genitourinary : No Dysuria, No Urinary Frequency, No Hematuria, No Urgency Musculoskeletal : No joint pain, No Myalgias, No Joint Swelling Skin : No Skin Lesions, No rash Neuro : No Weakness, No Numbness, No Dizziness, No Headache Psych : No Anxiety/Panic, No Depression Heme/Lymph: No Bruising, No Lymphadenopathy Endocrine : No Polyuria, No Polydipsia All other systems reviewed and are negative. Gastrointestinal: Gastrointestinal: Reports nausea PMFSH Past Medical History Attestation statement: The following information was validated with the patient. Medical History Abdominal pain Abscess Acidosis, lactic Bacteremia Cocaine abuse Complicated UTI (urinary tract infection) Cyclical vomiting Hidradenitis suppurativa Hypokalemia Hypothyroidism Intractable vomiting Marijuana abuse Opioid abuse Pelvic inflammatory disease Pyelonephritis Pyelonephritis UTI (urinary tract infection) Vomiting Surgical History Tubal ligation status Family History Family History Mother CVD (cardiovascular disease) HTN (hypertension) Maternal Grandmother High cholesterol HTN (hypertension) Maternal Grandfather Prostate cancer Other Heart disease Social History Social History Household Members: Family Housing: Apartment Do you presently have visiting nurse or other home services: No Alcohol intake: never Patient Tobacco Use Status: Current someday Tobacco user Tobacco use type: Cigarette Cigarettes Per Day: 4 Years Smoked: 20 e-Cigarette/Vaping Use: Never Used Second Hand Smoke Exposure: No Substance Use Type: Marijuana Advance Directives Date on File: 01/02/21 service: No Current occupational status: employed Physical Exam Vital Signs: Vital Signs: Last Vital Signs Temp 98.4 F 08/14/21 09:42 Pulse 86 08/14/21 11:09 Resp 16 08/14/21 11:09 BP 122/83 08/14/21 11:09 Pulse Ox 100 08/14/21 11:09 Body Mass Index 25.7 Appearance: Alert. Oriented X3. Anxious,moderate acute distress Eyes: Pupils equal, round and reactive to light. ENT: Pharynx dry MM Neck: Normal inspection. Neck supple. CVS: Normal heart rate and rhythm. Pulses normal. Respiratory: No respiratory distress. Breath sounds normal. Abdomen: Soft and diffuse lower abdominal ttp no rebound or guarding Skin: Skin warm and dry. pale skin color. Normal skin turgor. Extremities: No lower extremity edema. No calf ttp Neuro: Oriented X 3. No motor deficit. No sensory deficit. Course Course Course Narrative: negative UA, lactic acidosis due to vomiting and dehydration and not infection or severe sepsis patient positive again for fentanyl after discussion with addiction medicine - will try low dose suboxone lactic acidosis cleared no signs of UTI will DC home on zofran and suboxone she is able to tolerate PO MDM - Nausea/Vomiting/Diarrhea MDM Narrative Medical decision making narrative: 41 yo female with recurrent visits to the ED for lower abdominal pain and cyclical vomiting - attributed to either THC abuse, UTI/pyelo, and she has been testing positive for fentanyl and cocaine so there is some concern for a component of opiate withdrawal. Will obtain labs, IVF x 2L, anti emetics and UA/UPT and drug screen. She recently was admitted for this found not to have UTI and she had a negative CT scan. This is her 4th visit this month for same presentation. Patient is still unfortunately smoking at this time. Lab Data Result diagrams: 08/14/21 07:50 08/14/21 07:50 Labs: Lab Results 08/14/21 08/14/21 08/14/21 Range/Units 07:50 07:50 07:50 WBC 7.8 (4.8-10.8) X10*3/uL RBC 4.71 D (4.20-5.50) X10*6/uL Hgb 11.1 L D (12.0-16.0) g/dl Hct 36.3 L D (37-47) % MCV 77.1 L (80-98) fL MCH 23.6 L (27.0-33.0) pg MCHC 30.6 L (31.0-35.0) g/dl RDW 17.4 H (11.0-16.0) % Plt Count 279 D (160-400) X10*3/uL MPV 12.4 H (9.4-12.3) fL Immature Gran % (Auto) 0.8 H (0.0-0.4) % Neut % (Auto) 75.8 H (45-73) % Lymph % (Auto) 16.1 L (20-40) % [place] % (Auto) 6.9 (2-11) % Eos % (Auto) 0.1 (0-4) % Baso % (Auto) 0.3 (0-2) % Lymph # (Auto) 1.3 (1.2-4.9) X10*3/uL [place] # (Auto) 0.5 (0.1-1.2) X10*3/uL Eos # (Auto) 0.0 (0.0-0.4) X10*3/uL Baso # (Auto) 0.0 (0.0-0.2) X10*3/uL Abs Immat Gran (auto) 0.06 H (0.00-0.03) X10*3/uL Absolute Neuts (auto) 5.9 (2.0-8.3) X10*3/uL Absolute Nucleated RBC 0.000 (0.0-0.012) X10*3/uL Nucleated RBC % (auto) 0.0 (0.0-0.2) /100WBC Sodium 137 (135-145) mmol/L Potassium 3.7 (3.3-5.1) mmol/L Chloride 102 (96-108) mmol/L Carbon Dioxide 21 L (22-29) mmol/L Anion Gap 18 (12-20) BUN 17 H D (9-16) mg/dL Creatinine 0.84 (0.5-1.4) mg/dL Estim Creat Clear Calc 81.8 Estimated GFR > 60 Random Glucose 108 (60-115) mg/dL Lactic Acid 2.5 H* (0.5-2.0) mmol/L Lactic Acid Fup @ 2Hr (0.5-2.0) mmol/L Calcium 10.3 H D (8.4-10.2) mg/dL Magnesium 2.3 (1.6-2.6) mg/dL Total Bilirubin 0.6 (0.0-1.0) mg/dL Direct Bilirubin 0.2 (0.0-0.5) mg/dL AST 17 (5-31) U/L ALT 14 (0-31) U/L Alkaline Phosphatase 65 (39-117) U/L Total Protein 9.6 H (6.5-8.0) g/dL Albumin 5.1 H (3.5-5.0) g/dL Lipase 89 H (8-78) U/L Urine Color Urine Appearance Urine pH (5.0-8.0) Ur Specific [place] (1.005-1.025) Urine Protein (NEG-TRACE) MG/DL Urine Glucose (UA) (NEG) MG/DL Urine Ketones (NEG) MG/DL Urine Blood (NEG) Urine Nitrite (NEG) Ur Leukocyte Esterase (NEG) Urine RBC (0) /HPF Urine WBC (0-4) /HPF Ur Squamous Epith Cells /LPF Urine Bacteria /LPF Urine Mucus /LPF Urine Test (NEGATIVE) Urine Opiates Screen (Not Detect) Urine Fentanyl Screen (Not Detect) Ur Barbiturates Screen (Not Detect) Ur Phencyclidine Scrn (Not Detect) Ur Amphetamines Screen (Not Detect) U Benzodiazepines Scrn (Not Detect) Urine Cocaine Screen (Not Detect) U Marijuana (THC) Screen (Not Detect) COVID-19 (MILLICENT) (Negative) COVID-19 Clin Com 08/14/21 08/14/21 08/14/21 Range/Units 07:50 08:44 08:44 WBC (4.8-10.8) X10*3/uL RBC (4.20-5.50) X10*6/uL Hgb (12.0-16.0) g/dl Hct (37-47) % MCV (80-98) fL MCH (27.0-33.0) pg MCHC (31.0-35.0) g/dl RDW (11.0-16.0) % Plt Count (160-400) X10*3/uL MPV (9.4-12.3) fL Immature Gran % (Auto) (0.0-0.4) % Neut % (Auto) (45-73) % Lymph % (Auto) (20-40) % Hardin % (Auto) (2-11) % Eos % (Auto) (0-4) % Baso % (Auto) (0-2) % Lymph # (Auto) (1.2-4.9) X10*3/uL Hardin # (Auto) (0.1-1.2) X10*3/uL Eos # (Auto) (0.0-0.4) X10*3/uL Baso # (Auto) (0.0-0.2) X10*3/uL Abs Immat Gran (auto) (0.00-0.03) X10*3/uL Absolute Neuts (auto) (2.0-8.3) X10*3/uL Absolute Nucleated RBC (0.0-0.012) X10*3/uL Nucleated RBC % (auto) (0.0-0.2) /100WBC Sodium (135-145) mmol/L Potassium (3.3-5.1) mmol/L Chloride (96-108) mmol/L Carbon Dioxide (22-29) mmol/L Anion Gap (12-20) BUN (9-16) mg/dL Creatinine (0.5-1.4) mg/dL Estim Creat Clear Calc Estimated GFR Random Glucose (60-115) mg/dL Lactic Acid (0.5-2.0) mmol/L Lactic Acid Fup @ 2Hr (0.5-2.0) mmol/L Calcium (8.4-10.2) mg/dL Magnesium (1.6-2.6) mg/dL Total Bilirubin (0.0-1.0) mg/dL Direct Bilirubin (0.0-0.5) mg/dL AST (5-31) U/L ALT (0-31) U/L Alkaline Phosphatase (39-117) U/L Total Protein (6.5-8.0) g/dL Albumin (3.5-5.0) g/dL Lipase (8-78) U/L Urine Color YELLOW Urine Appearance HAZY Urine pH 6.0 (5.0-8.0) Ur Specific [place] 1.020 (1.005-1.025) Urine Protein 1+ H (NEG-TRACE) MG/DL Urine Glucose (UA) NEG (NEG) MG/DL Urine Ketones NEG (NEG) MG/DL Urine Blood NEG (NEG) Urine Nitrite NEG (NEG) Ur Leukocyte Esterase NEG (NEG) Urine RBC 0-2 (0) /HPF Urine WBC 0-2 (0-4) /HPF Ur Squamous Epith Cells 2+ /LPF Urine Bacteria NONE /LPF Urine Mucus 3+ /LPF Urine Test NEGATIVE (NEGATIVE) Urine Opiates Screen (Not Detect) Urine Fentanyl Screen (Not Detect) Ur Barbiturates Screen (Not Detect) Ur Phencyclidine Scrn (Not Detect) Ur Amphetamines Screen (Not Detect) U Benzodiazepines Scrn (Not Detect) Urine Cocaine Screen (Not Detect) U Marijuana (THC) Screen (Not Detect) COVID-19 (MILLICENT) Negative (Negative) COVID-19 Clin Com See Note 08/14/21 08/14/21 Range/Units 08:44 11:24 WBC (4.8-10.8) X10*3/uL RBC (4.20-5.50) X10*6/uL Hgb (12.0-16.0) g/dl Hct (37-47) % MCV (80-98) fL MCH (27.0-33.0) pg MCHC (31.0-35.0) g/dl RDW (11.0-16.0) % Plt Count (160-400) X10*3/uL MPV (9.4-12.3) fL Immature Gran % (Auto) (0.0-0.4) % Neut % (Auto) (45-73) % Lymph % (Auto) (20-40) % Hardin % (Auto) (2-11) % Eos % (Auto) (0-4) % Baso % (Auto) (0-2) % Lymph # (Auto) (1.2-4.9) X10*3/uL Hardin # (Auto) (0.1-1.2) X10*3/uL Eos # (Auto) (0.0-0.4) X10*3/uL Baso # (Auto) (0.0-0.2) X10*3/uL Abs Immat Gran (auto) (0.00-0.03) X10*3/uL Absolute Neuts (auto) (2.0-8.3) X10*3/uL Absolute Nucleated RBC (0.0-0.012) X10*3/uL Nucleated RBC % (auto) (0.0-0.2) /100WBC Sodium (135-145) mmol/L Potassium (3.3-5.1) mmol/L Chloride (96-108) mmol/L Carbon Dioxide (22-29) mmol/L Anion Gap (12-20) BUN (9-16) mg/dL Creatinine (0.5-1.4) mg/dL Estim Creat Clear Calc Estimated GFR Random Glucose (60-115) mg/dL Lactic Acid (0.5-2.0) mmol/L Lactic Acid Fup @ 2Hr 0.7 (0.5-2.0) mmol/L Calcium (8.4-10.2) mg/dL Magnesium (1.6-2.6) mg/dL Total Bilirubin (0.0-1.0) mg/dL Direct Bilirubin (0.0-0.5) mg/dL AST (5-31) U/L ALT (0-31) U/L Alkaline Phosphatase (39-117) U/L Total Protein (6.5-8.0) g/dL Albumin (3.5-5.0) g/dL Lipase (8-78) U/L Urine Color Urine Appearance Urine pH (5.0-8.0) Ur Specific [place] (1.005-1.025) Urine Protein (NEG-TRACE) MG/DL Urine Glucose (UA) (NEG) MG/DL Urine Ketones (NEG) MG/DL Urine Blood (NEG) Urine Nitrite (NEG) Ur Leukocyte Esterase (NEG) Urine RBC (0) /HPF Urine WBC (0-4) /HPF Ur Squamous Epith Cells /LPF Urine Bacteria /LPF Urine Mucus /LPF Urine Test (NEGATIVE) Urine Opiates Screen Not Detected (Not Detect) Urine Fentanyl Screen POSITIVE H (Not Detect) Ur Barbiturates Screen Not Detected (Not Detect) Ur Phencyclidine Scrn Not Detected (Not Detect) Ur Amphetamines Screen Not Detected (Not Detect) U Benzodiazepines Scrn Not Detected (Not Detect) Urine Cocaine Screen Not Detected (Not Detect) U Marijuana (THC) Screen POSITIVE H (Not Detect) COVID-19 (MILLICENT) (Negative) COVID-19 Clin Com Critical Care Time Critical Care Time Critical Care Time: Yes Total Critical Care Time: 45 Attestation: review of medical records, repeat medications, consult to addiction medicine I attest to this time spent taking care of the patient Discharge Plan Discharge Clinical Impression: Acidosis, lactic, Vomiting, Abdominal pain, Opioid abuse Patient Disposition: Home, Self-Care Instructions: Acute Nausea and Vomiting (ED), Abdominal Pain (ED) Additional Instructions: return to ED for any worsening symptoms or concerns Prescriptions: New promethazine 25 mg suppository 25 mg MA Q6H PRN (Reason: nausea and vomiting) Qty: 12 RF: 0 ondansetron 4 mg tablet,disintegrating 4 mg PO Q8H PRN (Reason: nausea and vomiting) Qty: 20 RF: 0 buprenorphine-naloxone [Suboxone] 4-1 mg film 1 film sublingual DAILY Qty: 5 RF: 0 No Action ascorbic acid (vitamin C) 1,000 mg tablet 1 g PO DAILY 90 Days Qty: 90 RF: 0 methenamine hippurate 1 gram tablet 1 tab PO DAILY RF: 0 ondansetron 4 mg tablet,disintegrating 4 mg PO Q8H PRN (Reason: nausea and vomiting) Qty: 14 RF: 0 ferrous sulfate 324 mg (65 mg iron) Tablet,Delayed Release (Dr/Ec) 324 mg PO DAILY Qty: 30 RF: 0 nicotine (polacrilex) 2 mg gum 2 mg buccal Q1H Qty: 110 RF: 0 ibuprofen 800 mg tablet 1 tab PO Q8H PRN (Reason: Pain, Moderate) RF: 0 ondansetron HCl [Zofran] 4 mg tablet 4 mg PO Q8H PRN (Reason: nausea and vomiting) Qty: 6 RF: 0 oxycodone 5 mg tablet 5 mg PO Q8H PRN (Reason: pain) Qty: 6 RF: 0 Stand Alone Forms: Work/School Release Interventions: ED Discharge Assessment Last Done: 08/14/21 13:06 Discharge Date/Time: 08/14/21 13:07
[2021-08-14 07:54] LABS: MANUAL DIFF FLAG NO
[2021-08-14 07:55] VITALS: BP 169/97; PULSE 96; RESP 20; TEMP 37.3; O2SAT 99
[2021-08-14 08:02] LABS: Basophils Percent Auto 0.3 % (0-2); Eosinophils Percent Auto 0.1 % (0-4); Hematocrit 36.3 % (37-47); Hemoglobin 11.1 g/dl (12.0-16.0); Imm Gran Abs Auto 0.06 X10*3/uL (0.00-0.03); Imm Gran Pct Auto 0.8 % (0.0-0.4); Lymphocytes Absolute Auto 1.3 X10*3/uL (1.2-4.9); Lymphocytes Percent Auto 16.1 % (20-40); Mean Corpuscular HGB Conc 30.6 g/dl (31.0-35.0); Mean Corpuscular Hemoglobin 23.6 pg (27.0-33.0); Mean Corpuscular Volume 77.1 fL (80-98); Mean Platelet Volume 12.4 fL (9.4-12.3); Monocytes Absolute Auto 0.5 X10*3/uL (0.1-1.2); Monocytes Percent Auto 6.9 % (2-11); Neutrophils Absolute Auto 5.9 X10*3/uL (2.0-8.3); Neutrophils Percent Auto 75.8 % (45-73); Platelet Count 279 X10*3/uL (160-400); Red Blood Count 4.71 X10*6/uL (4.20-5.50); Red Cell Distribution Width 17.4 % (11.0-16.0); White Blood Count 7.8 X10*3/uL (4.8-10.8)
[2021-08-14] MEDS: LORazepam 2 MG/ML VIAL 1 MG IVPUSH (08:07)
[2021-08-14] MEDS: Metoclopramide HCl 10 MG/2 ML VIAL IVPUSH (08:07)
[2021-08-14] MEDS: diphenhydrAMINE HCL 50 MG/ML VIAL 25 MG IVPUSH (08:07)
[2021-08-14 08:08] LABS: Lactic Acid 2.5 mmol/L (0.5-2.0)
[2021-08-14] MEDS: Haloperidol Lactate 5 MG/ML VIAL IM (08:08)
[2021-08-14] MEDS: 0.9 % Sodium Chloride 1,000 ML 999 ML IVCONT ×2 (08:08→10:06)
[2021-08-14 08:11] LABS: Alanine Aminotransferase 14 U/L (0-31); Albumin Level 5.1 g/dL (3.5-5.0); Alkaline Phosphatase 65 U/L (39-117); Anion Gap 18 (12-20); Aspartate Amino Transferase 17 U/L (5-31); Bilirubin Direct 0.2 mg/dL (0.0-0.5); Bilirubin Total 0.6 mg/dL (0.0-1.0); Blood Urea Nitrogen 17 mg/dL (9-16); Calcium 10.3 mg/dL (8.4-10.2); Carbon Dioxide 21 mmol/L (22-29); Chloride 102 mmol/L (96-108); Creatinine Clr Calc Pharmacy 81.8; Estimated Glomerular Filt Rate > 60; Glucose Random 108 mg/dL (60-115); Lipase 89 U/L (8-78); Magnesium 2.3 mg/dL (1.6-2.6); Potassium 3.7 mmol/L (3.3-5.1); Sodium 137 mmol/L (135-145); Total Protein 9.6 g/dL (6.5-8.0)
[2021-08-14 08:18] LABS: COVID-19 Test Negative (Negative); IDNOW Serial# 9DD0AD1C
[2021-08-14 09:00] LABS: Appearance Urine HAZY; Color Urine YELLOW; Glucose Urine UA NEG (NEG); Leukocyte Esterase Urine NEG (NEG); Nitrite Urine NEG (NEG); UACC Culture Trigger NO; Urine Blood NEG (NEG); Urine Ketones NEG (NEG); Urine Protein 1+ MG/DL (NEG-TRACE)
[2021-08-14 09:02] LABS: UPreg QC Valid YES; Urine Pregnancy NEGATIVE (NEGATIVE)
[2021-08-14 09:09] LABS: WBC Urine 0-2 /HPF (0-4)
[2021-08-14 09:10] LABS: Mucus Urine 3+ /LPF; RBC Urine 0-2 /HPF (0); Squamous Epithelial Cell Urine 2+ /LPF
[2021-08-14 09:15] LABS: Amphetamine Screen Urine Not Detected (Not Detect); Barbiturates, Urine Not Detected (Not Detect); Benzodiazepines Screen Urine Not Detected (Not Detect); Cannabinoid Screen Urine POSITIVE (Not Detect); Cocaine Screen Urine Not Detected (Not Detect); Fentanyl, urine POSITIVE (Not Detect); Opiate Screen Urine Not Detected (Not Detect); Phencyclidine Screen Urine Not Detected (Not Detect)
[2021-08-14 09:42] VITALS: BP 171/99; PULSE 94; RESP 18; TEMP 36.9
[2021-08-14 09:52] LABS: Reflex Lactate? Lactic Acid Added
[2021-08-14] MEDS: Buprenorphine/Naloxone 2/0.5mg FILM 1 FILM SUBLINGUAL ×2 (10:09→11:06)
--- NOTE | 2021-08-14 11:08 | MHC.RECOVRN ---
41 year old [place] [facility] [place] due to vomiting x 2 days. Pt has presented same in the past and had been attributed to cyclical vomiting syndrome. Pts UDS in Jun, Jul, Aug are positive for opiates/fentanyl. Pt denies use. Pt states I only smoke weed. Pt reports last substance use was or Saturday. Pt aware that fentanyl has been added to many substances and pts presentation is similar to opiate withdrawal. Discussed with pt and provider a trial of 2 mg Suboxone. Pt agreed. Upon reevaluation after Suboxone, pt reports feeling better. Pt states I haven't vomited and it's been days of vomiting. Provider to order additional 2 mg Suboxone. Pt educated regarding Suboxone, pt states I'll take it every day if it is going to make me feel better. Will continue to follow.
[2021-08-14 11:09] VITALS: BP 122/83; PULSE 86; RESP 16; O2SAT 100
[2021-08-14 11:44] LABS: ~Lactic Acid-LAB USE ONLY 0.7 mmol/L (0.5-2.0)
== END 2021-08-14 13:07 | disposition home or self-care (01) ==
PROVIDERS: Emergency Provider Emergency Medicine; PCP Internal Medicine
DX: R11.10 Vomiting, unspecified (principal); F17.210 Nicotine dependence, cigarettes, uncomplicated; F11.10 Opioid abuse, uncomplicated; R50.9 Fever, unspecified; R10.9 Unspecified abdominal pain; Z20.822 Contact with and (suspected) exposure to COVID-19; Z71.6 Tobacco abuse counseling; Z79.899 Other long term (current) drug therapy
CPT/HCPCS: 36415; 80048; 80076; 80307; 81001; 81003; 81025; 83605; 83690; 83735; 85025; 87635; 96361; 96372; 96374; 96375; 99284; 99291; J1200; J2060; J2765

== ENCOUNTER 2021-09-06 10:55 | Observation (INO) | payer OTHER, SELFPAY ==
[2021-09-06] VITALS (8 sets, daily range): BP systolic 115–155; BP diastolic 63–100; PULSE 42–82; RESP 14–20; TEMP 36.3–37.1; O2SAT 95–100; BMI 31.8; BMI 25.0
--- NOTE | 2021-09-06 12:22 | ED.ABDPAIN ---
HPI - Abdominal Pain General Chief Complaint: Abdominal Pain Stated Complaint: abd pain, fever Time Seen by Provider: 09/06/21 11:50 Source: patient Mode of arrival: ambulatory Limitations: no limitations History of Present Illness HPI narrative: 41-year-old woman who presents emergency department for evaluation of nausea vomiting abdominal pain and urinary frequency. Patient states that she has been vomiting nonstop for approximately 3 days. She states this is not able to hold down food or fluid. She states she is having lower abdominal pain, she describes his pain is a constant, burning pain which is 8/10 at its worst. She states she did have a fever at home of 102? F. patient states she has had similar presentations in the past for urinary tract infection. Her last urinary tract infection was several weeks prior. Patient was seen in the emergency department with similar symptoms on 08/14/2020. During that ED visit, the patient had abdominal pain and the record states that the patient has a history cyclical vomiting - attributed to either THC abuse, UTI/pyelo. Her urine drug screen positive for fentanyl and cocaine so there was some concern for a component of opiate withdrawal. Related Data Home Medications Medication Instructions Recorded Confirmed methenamine hippurate 1 gram tablet 1 tab PO DAILY 07/25/21 09/06/21 Previous Rx's Medication Instructions Recorded ascorbic acid (vitamin C) 1,000 mg 1 g PO DAILY 90 Days #90 tab NS 05/11/21 tablet Allergies Allergy/AdvReac Type Severity Reaction Status Date / Time amoxicillin [Amoxicillin] Allergy Intermediate HIVES Verified 07/08/21 15:11 tramadol AdvReac Intermediate SOB Verified 07/08/21 15:11 Review of Systems Review of Systems Yes all other systems are reviewed and are negative Physical Exam Vital Signs: Vital Signs: Last Vital Signs Temp 97.6 F 09/06/21 16:07 Pulse 76 09/06/21 16:07 Resp 18 09/06/21 16:07 BP 155/90 H 09/06/21 16:07 Pulse Ox 99 09/06/21 16:00 Body Mass Index 31.8 Const: Other: Awake, alert female patient, she is actively vomiting, she is shaking uncontrollably, she is diaphoretic, she is able to answer all questions without any difficulty. HENMT: Head: Yes normal to inspection, Yes normocephalic and Yes atraumatic Ears: external ears normal General nose exam: Normal external nose present Face and sinus: Yes normal facial exam Mouth: Normal oral and palatal mucosa present Throat: Yes posterior oropharynx normal Eyes: General: appearance normal, both eyes and all related structures Pupils: Equal, round and reactive pupils present Neck: Neck: Yes normal visual inspection, Yes no lymphadenopathy, Yes trachea midline and Yes supple Chest: Chest palpation & inspection: normal inspection of the chest and normal palpation of entire chest wall Resp: Effort & Inspection: normal respiratory effort and able to speak in complete sentences Auscultation: clear to auscultation bilaterally Cardio: Rate: regular rate Rhythm: regular rhythm Heart sounds: S1 normal heart sound present, S2 normal heart sound present and no murmurs GI: Inspection: Yes normal to inspection Palpation (GI): Soft to palpation, Tenderness to palpation present (GI) suprapubicly (Moderate) and no guarding Auscultation: normal bowel sounds : General: Yes no CVA tenderness Back/Spine/Pelvis: Back: no CVA tenderness Skin: General skin exam: no rashes or lesions noted Neuro: Cranial nerves: Yes CN's II-XII intact bilaterally and Yes Equal, round and reactive pupils present Cognition (Neuro): normal cognition Motor exam (neuro): 5/5 motor strength present throughout Extrem: General: Yes normal to inspection Psych: Appearance: grossly normal Speech and movement: Normal speech and movement present Affect: normal affect Attitude: cooperative Thought process: Normal thought process present Thought content: Normal thought content present Course Course Course Narrative: 41-year-old female who presents emergency department for evaluation of uncontrollable vomiting for 3 days, unable to eat or drink secondary to her emesis, lower abdominal pain and reported fever 102? F at home. Patient has had similar presentations in the past secondary to urinary tract infections, cyclic vomiting syndrome and possible opiate withdrawal. Patient's vital signs reveal that she was afebrile with a temperature of 97.8?, vital signs otherwise normal. On initial examination she was diaphoretic and she was shaking uncontrollably, she did have suprapubic tenderness otherwise exam was unremarkable. I ordered a CBC, CMP, lipase, urinalysis, urine drug screen, lactate, blood cultures x2. Patient was treated with Toradol 30 mg IV, regular and 10 mg IV and Benadryl 50 mg IV. She was given normal saline x1 L. 1556: Patient's laboratory evaluation revealed mild anemia with an H&H of 10 and 33.9 and an elevated lactic acid of 2.9. Patient's comprehensive metabolic panel was normal. Patient did not get any relief with the above treatment. She was then treated with Haldol 2.5 mg IV and morphine 4 mg IV. The patient got some improvement with the Haldol however her pain continued and she continued to have vomiting. Patient is ordered to get Phenergan 25 mg IV. Patient's urinalysis is pending. 1718: The patient got minimal improvement with the Phenergan. The patient is continuing to have nausea and pain. The patient's urinalysis was negative. The patient's urine tox screen was positive for opiates however she did receive morphine before the tox screen. The urine tox screen however was positive for fentanyl. Patient denies using any narcotics. It is also positive for marijuana. Patient continues to have intractable vomiting continues to have abdominal pain. I did order a 2nd dose of morphine 4 mg IV. I will discuss admission with the covering hospitalist. 1819: Patient's case was presented to the hospitalist, Dr. Fermin, the patient will be admitted to the hospital service for further treatment MDM - Abdominal Pain Lab Data Result diagrams: 09/06/21 12:27 09/06/21 12:27 Labs: Lab Results 09/06/21 09/06/21 09/06/21 Range/Units 12:27 12:27 12:27 WBC 8.9 (4.8-10.8) X10*3/uL RBC 4.30 (4.20-5.50) X10*6/uL Hgb 10.2 L (12.0-16.0) g/dl Hct 33.9 L (37-47) % MCV 78.8 L (80-98) fL MCH 23.7 L (27.0-33.0) pg MCHC 30.1 L (31.0-35.0) g/dl RDW 17.7 H (11.0-16.0) % Plt Count 239 (160-400) X10*3/uL MPV 12.2 (9.4-12.3) fL Immature Gran % (Auto) Cancelled Neut % (Auto) Cancelled Lymph % (Auto) Cancelled [place] % (Auto) Cancelled Eos % (Auto) Cancelled Baso % (Auto) Cancelled Lymph # (Auto) Cancelled [place] # (Auto) Cancelled Eos # (Auto) Cancelled Baso # (Auto) Cancelled Abs Immat Gran (auto) Cancelled Absolute Neuts (auto) Cancelled Absolute Nucleated RBC 0.000 (0.0-0.012) X10*3/uL Nucleated RBC % (auto) 0.0 (0.0-0.2) /100WBC Neutrophils % (Manual) 85 H (45-73) % Band Neutrophils % 1 L (3-5) % Lymphocytes % (Manual) 10 L (20-40) % Monocytes % (Manual) 4 (2-11) % Abs Neuts (Manual) 7.7 (2.2-7.9) X10*3/uL Lymphocytes # (Manual) 0.9 (0.6-4.8) X10*3/uL Monocytes # (Manual) 0.4 (0.0-1.2) X10*3/uL Platelet Estimate NORMAL (NORMAL) Plt Morphology Comment NORMAL RBC Morphology NOTED Hypochromasia 1+ (5-14) /OIF Microcytosis 1+ (5-14) /OIF Sodium 137 (135-145) mmol/L Potassium 3.8 (3.3-5.1) mmol/L Chloride 102 (96-108) mmol/L Carbon Dioxide 22 (22-29) mmol/L Anion Gap 17 (12-20) BUN 10 (9-16) mg/dL Creatinine 0.80 (0.5-1.4) mg/dL Estim Creat Clear Calc 91.7 Estimated GFR > 60 Random Glucose 101 (60-115) mg/dL Lactic Acid 2.9 H* (0.5-2.0) mmol/L Lactic Acid Fup @ 2Hr (0.5-2.0) mmol/L Calcium 9.3 D (8.4-10.2) mg/dL Total Bilirubin 0.8 (0.0-1.0) mg/dL AST 21 (5-31) U/L ALT 12 (0-31) U/L Alkaline Phosphatase 67 (39-117) U/L Total Protein 8.7 H (6.5-8.0) g/dL Albumin 4.6 (3.5-5.0) g/dL Lipase 53 (8-78) U/L Urine Color Urine Appearance Urine pH (5.0-8.0) Ur Specific [place] (1.005-1.025) Urine Protein (NEG-TRACE) MG/DL Urine Glucose (UA) (NEG) MG/DL Urine Ketones (NEG) MG/DL Urine Blood (NEG) Urine Nitrite (NEG) Ur Leukocyte Esterase (NEG) Urine RBC (0) /HPF Urine WBC (0-4) /HPF Ur Squamous Epith Cells /LPF Urine Bacteria /LPF Urine Opiates Screen (Not Detect) Urine Fentanyl Screen (Not Detect) Ur Barbiturates Screen (Not Detect) Ur Phencyclidine Scrn (Not Detect) Ur Amphetamines Screen (Not Detect) U Benzodiazepines Scrn (Not Detect) Urine Cocaine Screen (Not Detect) U Marijuana (THC) Screen (Not Detect) COVID-19 (MILLICENT) (Negative) COVID-19 Clin Com 09/06/21 09/06/21 09/06/21 Range/Units 12:41 15:37 15:37 WBC (4.8-10.8) X10*3/uL RBC (4.20-5.50) X10*6/uL Hgb (12.0-16.0) g/dl Hct (37-47) % MCV (80-98) fL MCH (27.0-33.0) pg MCHC (31.0-35.0) g/dl RDW (11.0-16.0) % Plt Count (160-400) X10*3/uL MPV (9.4-12.3) fL Immature Gran % (Auto) Neut % (Auto) Lymph % (Auto) [place] % (Auto) Eos % (Auto) Baso % (Auto) Lymph # (Auto) [place] # (Auto) Eos # (Auto) Baso # (Auto) Abs Immat Gran (auto) Absolute Neuts (auto) Absolute Nucleated RBC (0.0-0.012) X10*3/uL Nucleated RBC % (auto) (0.0-0.2) /100WBC Neutrophils % (Manual) (45-73) % Band Neutrophils % (3-5) % Lymphocytes % (Manual) (20-40) % Monocytes % (Manual) (2-11) % Abs Neuts (Manual) (2.2-7.9) X10*3/uL Lymphocytes # (Manual) (0.6-4.8) X10*3/uL Monocytes # (Manual) (0.0-1.2) X10*3/uL Platelet Estimate (NORMAL) Plt Morphology Comment RBC Morphology Hypochromasia /OIF Microcytosis /OIF Sodium (135-145) mmol/L Potassium (3.3-5.1) mmol/L Chloride (96-108) mmol/L Carbon Dioxide (22-29) mmol/L Anion Gap (12-20) BUN (9-16) mg/dL Creatinine (0.5-1.4) mg/dL Estim Creat Clear Calc Estimated GFR Random Glucose (60-115) mg/dL Lactic Acid (0.5-2.0) mmol/L Lactic Acid Fup @ 2Hr 1.6 (0.5-2.0) mmol/L Calcium (8.4-10.2) mg/dL Total Bilirubin (0.0-1.0) mg/dL AST (5-31) U/L ALT (0-31) U/L Alkaline Phosphatase (39-117) U/L Total Protein (6.5-8.0) g/dL Albumin (3.5-5.0) g/dL Lipase (8-78) U/L Urine Color YELLOW Urine Appearance HAZY Urine pH 7.0 (5.0-8.0) Ur Specific [place] 1.025 (1.005-1.025) Urine Protein TRACE (NEG-TRACE) MG/DL Urine Glucose (UA) NEG (NEG) MG/DL Urine Ketones >=80 (NEG) MG/DL Urine Blood 3+ H (NEG) Urine Nitrite NEG (NEG) Ur Leukocyte Esterase NEG (NEG) Urine RBC 15-29 H (0) /HPF Urine WBC 0 (0-4) /HPF Ur Squamous Epith Cells 2+ /LPF Urine Bacteria 1+ /LPF Urine Opiates Screen (Not Detect) Urine Fentanyl Screen (Not Detect) Ur Barbiturates Screen (Not Detect) Ur Phencyclidine Scrn (Not Detect) Ur Amphetamines Screen (Not Detect) U Benzodiazepines Scrn (Not Detect) Urine Cocaine Screen (Not Detect) U Marijuana (THC) Screen (Not Detect) COVID-19 (MILLICENT) Negative (Negative) COVID-19 Clin Com See Note 09/06/21 Range/Units 15:37 WBC (4.8-10.8) X10*3/uL RBC (4.20-5.50) X10*6/uL Hgb (12.0-16.0) g/dl Hct (37-47) % MCV (80-98) fL MCH (27.0-33.0) pg MCHC (31.0-35.0) g/dl RDW (11.0-16.0) % Plt Count (160-400) X10*3/uL MPV (9.4-12.3) fL Immature Gran % (Auto) Neut % (Auto) Lymph % (Auto) [place] % (Auto) Eos % (Auto) Baso % (Auto) Lymph # (Auto) [place] # (Auto) Eos # (Auto) Baso # (Auto) Abs Immat Gran (auto) Absolute Neuts (auto) Absolute Nucleated RBC (0.0-0.012) X10*3/uL Nucleated RBC % (auto) (0.0-0.2) /100WBC Neutrophils % (Manual) (45-73) % Band Neutrophils % (3-5) % Lymphocytes % (Manual) (20-40) % Monocytes % (Manual) (2-11) % Abs Neuts (Manual) (2.2-7.9) X10*3/uL Lymphocytes # (Manual) (0.6-4.8) X10*3/uL Monocytes # (Manual) (0.0-1.2) X10*3/uL Platelet Estimate (NORMAL) Plt Morphology Comment RBC Morphology Hypochromasia /OIF Microcytosis /OIF Sodium (135-145) mmol/L Potassium (3.3-5.1) mmol/L Chloride (96-108) mmol/L Carbon Dioxide (22-29) mmol/L Anion Gap (12-20) BUN (9-16) mg/dL Creatinine (0.5-1.4) mg/dL Estim Creat Clear Calc Estimated GFR Random Glucose (60-115) mg/dL Lactic Acid (0.5-2.0) mmol/L Lactic Acid Fup @ 2Hr (0.5-2.0) mmol/L Calcium (8.4-10.2) mg/dL Total Bilirubin (0.0-1.0) mg/dL AST (5-31) U/L ALT (0-31) U/L Alkaline Phosphatase (39-117) U/L Total Protein (6.5-8.0) g/dL Albumin (3.5-5.0) g/dL Lipase (8-78) U/L Urine Color Urine Appearance Urine pH (5.0-8.0) Ur Specific [place] (1.005-1.025) Urine Protein (NEG-TRACE) MG/DL Urine Glucose (UA) (NEG) MG/DL Urine Ketones (NEG) MG/DL Urine Blood (NEG) Urine Nitrite (NEG) Ur Leukocyte Esterase (NEG) Urine RBC (0) /HPF Urine WBC (0-4) /HPF Ur Squamous Epith Cells /LPF Urine Bacteria /LPF Urine Opiates Screen POSITIVE H (Not Detect) Urine Fentanyl Screen POSITIVE H (Not Detect) Ur Barbiturates Screen Not Detected (Not Detect) Ur Phencyclidine Scrn Not Detected (Not Detect) Ur Amphetamines Screen Not Detected (Not Detect) U Benzodiazepines Scrn Not Detected (Not Detect) Urine Cocaine Screen Not Detected (Not Detect) U Marijuana (THC) Screen POSITIVE H (Not Detect) COVID-19 (MILLICENT) (Negative) COVID-19 Clin Com Discharge Plan Discharge Patient Disposition: Admitted As Inpatient [facility] Past Medical History [facility] Narrative: Social history: The patient states she smokes 5 cigarettes per day since she was 16 years old. She denies alcohol use. When I asked her about drug use, she states that she uses marijuana occasionally and denied any other drug use. Medical History Abdominal pain Abscess Acidosis, lactic Bacteremia Cocaine abuse Complicated UTI (urinary tract infection) Cyclical vomiting Hidradenitis suppurativa Hypokalemia Hypothyroidism Intractable vomiting Marijuana abuse Opioid abuse Pelvic inflammatory disease Pyelonephritis Pyelonephritis UTI (urinary tract infection) Vomiting Surgical History Tubal ligation status Family History Family History Mother CVD (cardiovascular disease) HTN (hypertension) Maternal Grandmother High cholesterol HTN (hypertension) Maternal Grandfather Prostate cancer Other Heart disease Social History Social History Household Members: Family Housing: Apartment Do you presently have visiting nurse or other home services: No Alcohol intake: never Patient Tobacco Use Status: Current someday Tobacco user Tobacco use type: Cigarette Cigarettes Per Day: 4 Years Smoked: 20 e-Cigarette/Vaping Use: Never Used Second Hand Smoke Exposure: No Substance Use Type: Marijuana Advance Directives: Yes Advance Directives on File: Yes Advance Directives Date on File: 01/02/21 service: No Current occupational status: employed
[2021-09-06] MEDS: diphenhydrAMINE HCL 50 MG/ML VIAL IVPUSH (12:34)
[2021-09-06] MEDS: Ketorolac Tromethamine 15 MG/ML VIAL 30 MG IVPUSH (12:34)
[2021-09-06] MEDS: 0.9 % Sodium Chloride 1,000 ML 999 ML IV (12:35)
[2021-09-06 12:38] LABS: Hematocrit 33.9 % (37-47); Hemoglobin 10.2 g/dl (12.0-16.0); Mean Corpuscular HGB Conc 30.1 g/dl (31.0-35.0); Mean Corpuscular Hemoglobin 23.7 pg (27.0-33.0); Mean Corpuscular Volume 78.8 fL (80-98); Mean Platelet Volume 12.2 fL (9.4-12.3); Platelet Count 239 X10*3/uL (160-400); Red Cell Distribution Width 17.7 % (11.0-16.0)
[2021-09-06 12:48] LABS: WBC ABN SCTR FOR CBC 1
[2021-09-06 12:51] LABS: Lactic Acid 2.9 mmol/L (0.5-2.0)
[2021-09-06 13:00] LABS: Alanine Aminotransferase 12 U/L (0-31); Albumin Level 4.6 g/dL (3.5-5.0); Alkaline Phosphatase 67 U/L (39-117); Anion Gap 17 (12-20); Aspartate Amino Transferase 21 U/L (5-31); Bilirubin Total 0.8 mg/dL (0.0-1.0); Blood Urea Nitrogen 10 mg/dL (9-16); Calcium 9.3 mg/dL (8.4-10.2); Carbon Dioxide 22 mmol/L (22-29); Chloride 102 mmol/L (96-108); Creatinine Clr Calc Pharmacy 91.7; Estimated Glomerular Filt Rate > 60; Glucose Random 101 mg/dL (60-115); Lipase 53 U/L (8-78); Potassium 3.8 mmol/L (3.3-5.1); Sodium 137 mmol/L (135-145); Total Protein 8.7 g/dL (6.5-8.0)
[2021-09-06 13:10] LABS: Band Neutrophils Percent 1 % (3-5); Lymphocytes Percent Manual 10 % (20-40); Monocytes Percent Manual 4 % (2-11); Neutrophils Percent Manual 85 % (45-73)
[2021-09-06 13:11] LABS: Hypochromasia 1+ (5-14) /OIF; Microcytosis 1+ (5-14) /OIF; Platelet Estimate NORMAL (NORMAL); Platelet Morphology Comment NORMAL; RBC Morphology NOTED
[2021-09-06 13:12] LABS: Lymphocytes Absolute Manual 0.9 X10*3/uL (0.6-4.8); Monocytes Absolute Manual 0.4 X10*3/uL (0.0-1.2); Neutrophils Absolute Manual 7.7 X10*3/uL (2.2-7.9); White Blood Count 8.9 X10*3/uL (4.8-10.8)
[2021-09-06 13:17] LABS: COVID-19 Test Negative (Negative)
[2021-09-06] MEDS: Haloperidol Lactate 5 MG/ML VIAL 2.5 MG IVPUSH (13:37)
[2021-09-06] MEDS: 0.9 % Sodium Chloride 2,449.41 ML 2449.41 ML IV (13:39)
[2021-09-06] MEDS: Morphine Sulfate 4 MG/ML CARTRIDGE IVPUSH ×3 (13:39→21:15)
[2021-09-06 14:32] LABS: Reflex Lactate? Lactic Acid Added
[2021-09-06 15:46] LABS: Appearance Urine HAZY; Color Urine YELLOW; Glucose Urine UA NEG (NEG); Leukocyte Esterase Urine NEG (NEG); Nitrite Urine NEG (NEG); Specific Gravity - Urine 1.025 (1.005-1.025); UACC Culture Trigger NO; Urine Blood 3+ (NEG); Urine Ketones >=80 MG/DL (NEG); Urine Protein TRACE MG/DL (NEG-TRACE)
[2021-09-06 15:52] LABS: ~Lactic Acid-LAB USE ONLY 1.6 mmol/L (0.5-2.0)
[2021-09-06 15:55] LABS: Squamous Epithelial Cell Urine 2+ /LPF
[2021-09-06 15:56] LABS: Bacteria Urine 1+ /LPF; WBC Urine 0 /HPF (0-4)
[2021-09-06 15:57] LABS: Amphetamine Screen Urine Not Detected (Not Detect); Barbiturates, Urine Not Detected (Not Detect); Benzodiazepines Screen Urine Not Detected (Not Detect); Cannabinoid Screen Urine POSITIVE (Not Detect); Cocaine Screen Urine Not Detected (Not Detect); Fentanyl, urine POSITIVE (Not Detect); Opiate Screen Urine POSITIVE (Not Detect); Phencyclidine Screen Urine Not Detected (Not Detect)
--- NOTE | 2021-09-06 16:46 | PC.NURSE ---
Pt alert and oriented x4, calm and cooperative. Pt states she has 8/10 abd pain and nausea persists. Pt asking for more pain medMD jean aware. Urine collected. IV intact and infusing fluids. Vitals remain stable, afebrile. Pt resting in stretcher at this time, will continue to monitor.
--- NOTE | 2021-09-06 17:56 | P.HPHOSP_ITS ---
History of Present Illness Date of Service: 09/06/21 Chief Complaint: Nausea vomiting 41-year-old female with history of cyclic vomiting syndrome, presented with 3 days of crampy abdominal pain and 1 day of nausea and vomiting with inability to tolerate p.o. reports similar to previous cyclic vomiting episodes. Denies fever, chills, chest pain, shortness of breath. Denies sick contacts, denies eating any questionable foods. Actively using marijuana. Review of Systems Review of Systems: Constitutional: Denies fever, denies Chills Eyes: denies blurry vision ENT: denies sore throat CVS: denies chest pain Respiratory: Denies dyspnea GI: abdominal pain : denies dysuria MSK: denies neck pain Skin: denies rash Neuro: denies specific motor weakness Psych: denies suicidal ideation Endocrine: denies heat/cold intolerance Hematologic: denies easy bleeding Allergy: denies hives [facility] Medical History Abdominal pain Abscess Acidosis, lactic Bacteremia Cocaine abuse Complicated UTI (urinary tract infection) Cyclical vomiting Hidradenitis suppurativa Hypokalemia Hypothyroidism Intractable vomiting Marijuana abuse Opioid abuse Pelvic inflammatory disease Pyelonephritis Pyelonephritis UTI (urinary tract infection) Vomiting Family History Mother CVD (cardiovascular disease) HTN (hypertension) Maternal Grandmother High cholesterol HTN (hypertension) Maternal Grandfather Prostate cancer Other Heart disease Pertinent family history: . Surgical History Tubal ligation status Social History Household Members: Family Housing: Apartment Do you presently have visiting nurse or other home services: No Alcohol intake: never Patient Tobacco Use Status: Current someday Tobacco user Tobacco use type: Cigarette Cigarettes Per Day: 4 Years Smoked: 20 e-Cigarette/Vaping Use: Never Used Second Hand Smoke Exposure: No Substance Use Type: Marijuana Advance Directives: Yes Advance Directives on File: Yes Advance Directives Date on File: 01/02/21 service: No Current occupational status: employed Meds Allergies Allergy/AdvReac Type Severity Reaction Status Date / Time amoxicillin [Amoxicillin] Allergy Intermediate HIVES Verified 07/08/21 15:11 tramadol AdvReac Intermediate SOB Verified 07/08/21 15:11 Active Medications: Current Medications Pharmacy Consult (Consult Rx Perform Med Rec) 1 each MISCELLANE ONCE PRN PRN Reason: Consult order Home Medications Medication Instructions Recorded Confirmed Last Taken Type methenamine hippurate 1 gram tablet 1 tab PO DAILY 07/25/21 09/06/21 09/03/21 History Physical Exam Vital Signs and Narrative: Vital Signs: Last Vital Signs Temp 97.6 F 09/06/21 16:07 Pulse 76 09/06/21 16:07 Resp 18 09/06/21 16:07 BP 155/90 H 09/06/21 16:07 Pulse Ox 99 09/06/21 16:00 Body Mass Index 31.8 General: nausea HEENT: atraumatic Neck: normal to visual inspection CVS: S1, S2, RRR Resp: CTA bilateral Chest: non tender GI: soft, tender, non distended : no CVA tenderness Skin: no rashes Extremities: no edema Neuro: Oriented X3, grossly intact Psych: cooperative Results Labs CBC and Chem 7: 09/06/21 12:27 09/06/21 12:27 Labs: Laboratory Results - last 24 hr 09/06/21 09/06/21 09/06/21 12:27 12:27 12:27 MCV 78.8 L MCH 23.7 L MCHC 30.1 L RDW 17.7 H Plt Count 239 MPV 12.2 Immature Gran % (Auto) Cancelled Neut % (Auto) Cancelled Lymph % (Auto) Cancelled [place] % (Auto) Cancelled Eos % (Auto) Cancelled Baso % (Auto) Cancelled Lymph # (Auto) Cancelled [place] # (Auto) Cancelled Eos # (Auto) Cancelled Baso # (Auto) Cancelled Abs Immat Gran (auto) Cancelled Absolute Neuts (auto) Cancelled Absolute Nucleated RBC 0.000 Nucleated RBC % (auto) 0.0 Neutrophils % (Manual) 85 H Band Neutrophils % 1 L Lymphocytes % (Manual) 10 L Monocytes % (Manual) 4 Abs Neuts (Manual) 7.7 Lymphocytes # (Manual) 0.9 Monocytes # (Manual) 0.4 Platelet Estimate NORMAL Plt Morphology Comment NORMAL RBC Morphology NOTED Hypochromasia 1+ (5-14) Microcytosis 1+ (5-14) Anion Gap 17 Estim Creat Clear Calc 91.7 Estimated GFR > 60 Random Glucose 101 Lactic Acid 2.9 H* Lactic Acid Fup @ 2Hr Calcium 9.3 D Total Bilirubin 0.8 AST 21 ALT 12 Alkaline Phosphatase 67 Total Protein 8.7 H Albumin 4.6 Lipase 53 Urine Color Urine Appearance Urine pH Ur Specific [place] Urine Protein Urine Glucose (UA) Urine Ketones Urine Blood Urine Nitrite Ur Leukocyte Esterase Urine RBC Urine WBC Ur Squamous Epith Cells Urine Bacteria Urine Opiates Screen Urine Fentanyl Screen Ur Barbiturates Screen Ur Phencyclidine Scrn Ur Amphetamines Screen U Benzodiazepines Scrn Urine Cocaine Screen U Marijuana (THC) Screen COVID-19 (MILLICENT) COVID-19 Clin Com 09/06/21 09/06/21 09/06/21 12:41 15:37 15:37 MCV MCH MCHC RDW Plt Count MPV Immature Gran % (Auto) Neut % (Auto) Lymph % (Auto) [place] % (Auto) Eos % (Auto) Baso % (Auto) Lymph # (Auto) [place] # (Auto) Eos # (Auto) Baso # (Auto) Abs Immat Gran (auto) Absolute Neuts (auto) Absolute Nucleated RBC Nucleated RBC % (auto) Neutrophils % (Manual) Band Neutrophils % Lymphocytes % (Manual) Monocytes % (Manual) Abs Neuts (Manual) Lymphocytes # (Manual) Monocytes # (Manual) Platelet Estimate Plt Morphology Comment RBC Morphology Hypochromasia Microcytosis Anion Gap Estim Creat Clear Calc Estimated GFR Random Glucose Lactic Acid Lactic Acid Fup @ 2Hr 1.6 Calcium Total Bilirubin AST ALT Alkaline Phosphatase Total Protein Albumin Lipase Urine Color YELLOW Urine Appearance HAZY Urine pH 7.0 Ur Specific [place] 1.025 Urine Protein TRACE Urine Glucose (UA) NEG Urine Ketones >=80 Urine Blood 3+ H Urine Nitrite NEG Ur Leukocyte Esterase NEG Urine RBC 15-29 H Urine WBC 0 Ur Squamous Epith Cells 2+ Urine Bacteria 1+ Urine Opiates Screen Urine Fentanyl Screen Ur Barbiturates Screen Ur Phencyclidine Scrn Ur Amphetamines Screen U Benzodiazepines Scrn Urine Cocaine Screen U Marijuana (THC) Screen COVID-19 (MILLICENT) Negative COVID-19 Clin Com See Note 09/06/21 15:37 MCV MCH MCHC RDW Plt Count MPV Immature Gran % (Auto) Neut % (Auto) Lymph % (Auto) [place] % (Auto) Eos % (Auto) Baso % (Auto) Lymph # (Auto) [place] # (Auto) Eos # (Auto) Baso # (Auto) Abs Immat Gran (auto) Absolute Neuts (auto) Absolute Nucleated RBC Nucleated RBC % (auto) Neutrophils % (Manual) Band Neutrophils % Lymphocytes % (Manual) Monocytes % (Manual) Abs Neuts (Manual) Lymphocytes # (Manual) Monocytes # (Manual) Platelet Estimate Plt Morphology Comment RBC Morphology Hypochromasia Microcytosis Anion Gap Estim Creat Clear Calc Estimated GFR Random Glucose Lactic Acid Lactic Acid Fup @ 2Hr Calcium Total Bilirubin AST ALT Alkaline Phosphatase Total Protein Albumin Lipase Urine Color Urine Appearance Urine pH Ur Specific [place] Urine Protein Urine Glucose (UA) Urine Ketones Urine Blood Urine Nitrite Ur Leukocyte Esterase Urine RBC Urine WBC Ur Squamous Epith Cells Urine Bacteria Urine Opiates Screen POSITIVE H Urine Fentanyl Screen POSITIVE H Ur Barbiturates Screen Not Detected Ur Phencyclidine Scrn Not Detected Ur Amphetamines Screen Not Detected U Benzodiazepines Scrn Not Detected Urine Cocaine Screen Not Detected U Marijuana (THC) Screen POSITIVE H COVID-19 (MILLICENT) COVID-19 Clin Com Assessment and Plan (1) Vomiting: Qualifiers: Nausea presence: with nausea Vomiting Intractability: intractable Vomiting type: unspecified Qualified Code(s): R11.2 - Nausea with vomiting, unspecified Status: Acute (2) Abdominal pain: Qualifiers: Abdominal location: lower abdomen, unspecified Qualified Code(s): R10.30 - Lower abdominal pain, unspecified Status: Acute 41F presented with nausea and vomitting Nausea vomiting Cyclic vomiting versus cannabinoid associated emesis IV fluids, antiemetics, pain control Monitor electrolytes Quality Stroke Does the patient have a stroke diagnosis?: No VTE Prior VTE?: No VTE Risk Level:: Medical - low VTE Device Contraindication: Treatment Not Indicated VTE Drug Contraindication: Treatment Not Indicated
[2021-09-06] MEDS: Pantoprazole Sodium 40 MG/10 ML VIAL IVPUSH (18:28)
--- NOTE | 2021-09-06 20:01 | PC.NURSE ---
Pt alert and oriented x4, calm and cooperative. Pt OOB ambulating independently. Vital stable. IV intact. Pt states N, no vomiting at this time. Pain improved but persists. Pt aware of being admitted.
[2021-09-06] MEDS: Dextrose 5 % and 0.45 % NaCl 1,000 ML 80 ML IVCONT (21:17)
[2021-09-06] MEDS: Melatonin 3 MG TABLET 6 MG PO (21:39)
[2021-09-06] MEDS: Nicotine 14 MG PATCH.TD24 TRANSDERMA (21:39)
--- NOTE | 2021-09-07 00:57 | PC.NURSE ---
Pt urine tox screen came back positive for fentanyl. RN asked where she bought her marijuana from and she said she gets it from a dealer off the street. She reports the last time she came to the ED for the same symptoms she tested positive for fentanyl as well. RN educated patient that if she is going to smoke marijuana she should be getting it from a reputable source such as a dispensary to prevent the substance from being laced with other substances. PT is agreeable and understanding to education.
[2021-09-07] MEDS: Morphine Sulfate 4 MG/ML CARTRIDGE IVPUSH ×3 (02:15→10:32)
[2021-09-07 04:00] VITALS: BP 155/71; PULSE 76; RESP 18; TEMP 36.4; O2SAT 99
[2021-09-07 06:15] LABS: Hematocrit 27.8 % (37-47); Hemoglobin 8.6 g/dl (12.0-16.0); Mean Corpuscular HGB Conc 30.9 g/dl (31.0-35.0); Mean Corpuscular Hemoglobin 24.3 pg (27.0-33.0); Mean Corpuscular Volume 78.5 fL (80-98); Mean Platelet Volume 12.4 fL (9.4-12.3); Platelet Count 175 X10*3/uL (160-400); Red Blood Count 3.54 X10*6/uL (4.20-5.50); Red Cell Distribution Width 17.4 % (11.0-16.0); WBC ABN SCTR FOR CBC 1
[2021-09-07] MEDS: Pantoprazole Sodium 40 MG/10 ML VIAL IVPUSH (06:17)
[2021-09-07 06:18] LABS: White Blood Count 5.5 X10*3/uL (4.8-10.8)
[2021-09-07] MEDS: Dextrose 5 % and 0.45 % NaCl 1,000 ML 80 ML IVCONT (06:22)
[2021-09-07] MEDS: Metoclopramide HCl 10 MG/2 ML VIAL 5 MG IVPUSH (06:22)
[2021-09-07 06:35] LABS: Anion Gap 9 (12-20); Blood Urea Nitrogen 6 mg/dL (9-16); Calcium 8.2 mg/dL (8.4-10.2); Carbon Dioxide 26 mmol/L (22-29); Chloride 105 mmol/L (96-108); Estimated Glomerular Filt Rate > 60; Glucose Fasting 88 mg/dL (60-99); Magnesium 2.1 mg/dL (1.6-2.6); Potassium 3.2 mmol/L (3.3-5.1); Sodium 137 mmol/L (135-145)
[2021-09-07 07:29] VITALS: BP 140/83; PULSE 74; RESP 16; TEMP 36.7; O2SAT 100
[2021-09-07] MEDS: Nicotine 14 MG PATCH.TD24 TRANSDERMA (09:02)
[2021-09-07 11:36] VITALS: BP 133/90; PULSE 78; RESP 18; TEMP 36.6; O2SAT 100
[2021-09-07 12:15] VITALS: BMI 25.0
--- NOTE | 2021-09-07 12:29 | MHC.CLN ---
RE: CONSULT PT TRIGGERS FOR 15% SIGNIFICANT WT LOSS X 180DAYS R/T RECURRENT CYCLICAL N/V. PT WITH FREQUENT HOSPITALIZATIONS FOR CHRONIC N/V. NO S/S MALNUTRITION S/P NFPE PREVIOUS WT HX: 141# 09/06/21 149.6# (08/14/21) -6% WT LOSS X 30DAYS 153# (06/05/21) -8% WT LOSS X 90DAYS 165# (03/15/21) -15% X 180DAYS 170# (07/2020) -17% X 1 YEAR (NON-SIGNIFICANT) PT REPORTS SHE HAS NOTICED THE WT LOSS HER CLOTHES ARE MORE LOOSE, BUT WT LOSS WAS UNINTENTIONAL. PT'S WT GOAL IS 150# AND RECEPTIVE TO TRIAL OF ENSURE SHAKE (PREFERS CHOCOLATE) DIET RX: BLAND-APPROPRIATE RECOMMEND ADDING ENSURE BID TO PROVIDE 700KCALS, 40G PROTEIN MONITOR PO INTAKE CLOSELY SEE ALSO CLINICAL NUTRITION ASSESSMENT
--- NOTE | 2021-09-07 13:04 | PM.DS ---
DS: Providers Provider Date of Service: 09/07/21 Date of admission: 09/06/21 17:54 Primary care physician: Navi Real MD DS: Diagnosis Discharge Diagnosis (1) Vomiting: Status: Acute (2) Abdominal pain: Status: Acute DS: Summary Hospital Course Hospital Course: Patient was admitted for cyclic vomiting complicated by dehydration, she received IV fluids and antiemetics. She was advised to stop marijuana. Symptoms improved, she tolerated p.o.. She will be discharged home. Time Spent with Patient Time attestation: Total time spent providing and/or coordinating discharge services: Discharge coordination time: Less than 30 minutes Quality: Stroke Does the patient have a stroke diagnosis?: No Physical Exam Vital Signs: Vital Signs: Last Vital Signs Temp 97.9 F 09/07/21 11:36 Pulse 78 09/07/21 11:36 Resp 18 09/07/21 11:36 BP 133/90 H 09/07/21 11:36 Pulse Ox 100 09/07/21 11:36 Body Mass Index 25.0 General: AO X 3, no acute distress Resp: CTA bilateral, no accessory muscles used CVS: S1,S2,RRR GI: soft, non tender, non distended Neuro: motor grossly intact, alert Psych: appropriate affect, appropriate insight DS: Data Data Completed and Pending Labs on day of discharge: Laboratory Results - last 24 hr 09/06/21 09/06/21 09/06/21 12:27 12:41 15:37 WBC 8.9 RBC Hgb Hct MCV MCH MCHC RDW Plt Count MPV Absolute Nucleated RBC Nucleated RBC % (auto) Neutrophils % (Manual) 85 H Band Neutrophils % 1 L Lymphocytes % (Manual) 10 L Monocytes % (Manual) 4 Abs Neuts (Manual) 7.7 Lymphocytes # (Manual) 0.9 Monocytes # (Manual) 0.4 Platelet Estimate NORMAL Plt Morphology Comment NORMAL RBC Morphology NOTED Hypochromasia 1+ (5-14) Microcytosis 1+ (5-14) Sodium Potassium Chloride Carbon Dioxide Anion Gap BUN Creatinine Estim Creat Clear Calc Estimated GFR Fasting Glucose Lactic Acid Fup @ 2Hr 1.6 Calcium Magnesium Urine Color Urine Appearance Urine pH Ur Specific [place] Urine Protein Urine Glucose (UA) Urine Ketones Urine Blood Urine Nitrite Ur Leukocyte Esterase Urine RBC Urine WBC Ur Squamous Epith Cells Urine Bacteria Urine Opiates Screen Urine Fentanyl Screen Ur Barbiturates Screen Ur Phencyclidine Scrn Ur Amphetamines Screen U Benzodiazepines Scrn Urine Cocaine Screen U Marijuana (THC) Screen COVID-19 (MILLICENT) Negative COVID-19 Chance (app) Com See Note 09/06/21 09/06/21 09/07/21 15:37 15:37 05:58 WBC 5.5 RBC 3.54 L Hgb 8.6 L Hct 27.8 L MCV 78.5 L MCH 24.3 L MCHC 30.9 L RDW 17.4 H Plt Count 175 D MPV 12.4 H Absolute Nucleated RBC 0.000 Nucleated RBC % (auto) 0.0 Neutrophils % (Manual) Band Neutrophils % Lymphocytes % (Manual) Monocytes % (Manual) Abs Neuts (Manual) Lymphocytes # (Manual) Monocytes # (Manual) Platelet Estimate Plt Morphology Comment RBC Morphology Hypochromasia Microcytosis Sodium Potassium Chloride Carbon Dioxide Anion Gap BUN Creatinine Estim Creat Clear Calc Estimated GFR Fasting Glucose Lactic Acid Fup @ 2Hr Calcium Magnesium Urine Color YELLOW Urine Appearance HAZY Urine pH 7.0 Ur Specific [place] 1.025 Urine Protein TRACE Urine Glucose (UA) NEG Urine Ketones >=80 Urine Blood 3+ H Urine Nitrite NEG Ur Leukocyte Esterase NEG Urine RBC 15-29 H Urine WBC 0 Ur Squamous Epith Cells 2+ Urine Bacteria 1+ Urine Opiates Screen POSITIVE H Urine Fentanyl Screen POSITIVE H Ur Barbiturates Screen Not Detected Ur Phencyclidine Scrn Not Detected Ur Amphetamines Screen Not Detected U Benzodiazepines Scrn Not Detected Urine Cocaine Screen Not Detected U Marijuana (THC) Screen POSITIVE H COVID-19 (MILLICENT) COVID-19 Chance (app) Com 09/07/21 05:58 WBC RBC Hgb Hct MCV MCH MCHC RDW Plt Count MPV Absolute Nucleated RBC Nucleated RBC % (auto) Neutrophils % (Manual) Band Neutrophils % Lymphocytes % (Manual) Monocytes % (Manual) Abs Neuts (Manual) Lymphocytes # (Manual) Monocytes # (Manual) Platelet Estimate Plt Morphology Comment RBC Morphology Hypochromasia Microcytosis Sodium 137 Potassium 3.2 L Chloride 105 Carbon Dioxide 26 Anion Gap 9 L BUN 6 L Creatinine 0.66 Estim Creat Clear Calc 99.0 Estimated GFR > 60 Fasting Glucose 88 Lactic Acid Fup @ 2Hr Calcium 8.2 L D Magnesium 2.1 Urine Color Urine Appearance Urine pH Ur Specific [place] Urine Protein Urine Glucose (UA) Urine Ketones Urine Blood Urine Nitrite Ur Leukocyte Esterase Urine RBC Urine WBC Ur Squamous Epith Cells Urine Bacteria Urine Opiates Screen Urine Fentanyl Screen Ur Barbiturates Screen Ur Phencyclidine Scrn Ur Amphetamines Screen U Benzodiazepines Scrn Urine Cocaine Screen U Marijuana (THC) Screen COVID-19 (MILLICENT) COVID-19 Clin Com Discharge Plan Discharge Patient Disposition: Home, Self-Care Referrals: Navi Real MD [Primary Care Provider] - 1 Week Discharge Medications: Continued ascorbic acid (vitamin C) 1,000 mg tablet 1 g PO DAILY 90 Days Qty: 90 RF: 0 methenamine hippurate 1 gram tablet 1 tab PO DAILY RF: 0 Discharge Orders: Discharge Order (Routine); Ordered 09/07/21 Ordered By: Matt Fermin Diet: advance to usual diet Activity on Discharge: As tolerated Stand Alone Forms: Patient Portal Discharge page, Work/School Release Care Plan Goals: achieve adequate intake Health Concerns: cyclic vomitting Plan of Treatment: avoid marijuana, advance diet as tolerated Assessment: see above
--- NOTE | 2021-09-07 13:25 | MHC.CM.PN ---
SAMIA 09/07/21 Female 41 DX N/V VAC x1 PFISER. Patient due for 2nd injection today. She plans on receiving the 2nd shot today. She is independent. She lives with family. She is discharged today. DP home no services family providing transportation.
== END 2021-09-07 14:46 | disposition home or self-care (01) ==
LOC: HO.ED 17:22 → HO.EDOVER 18:34 → HO.IMC 19:49
PROVIDERS: Admitting Provider Internal Medicine; Emergency Provider Emergency Medicine Emergency Medical Services; PCP Family Medicine; Visit Provider Internal Medicine
DX: R11.15 Cyclical vomiting syndrome unrelated to migraine (principal); E86.0 Dehydration; R10.30 Lower abdominal pain, unspecified; G43.909 Migraine, unspecified, not intractable, without status migrainosus; N39.0 Urinary tract infection, site not specified; I10 Essential (primary) hypertension; E03.9 Hypothyroidism, unspecified; E87.6 Hypokalemia; F17.210 Nicotine dependence, cigarettes, uncomplicated; F12.10 Cannabis abuse, uncomplicated; F11.10 Opioid abuse, uncomplicated; Z20.822 Contact with and (suspected) exposure to COVID-19; Z71.51 Drug abuse counseling and surveillance of drug abuser
CPT/HCPCS: 36415; 80048; 80053; 80307; 81001; 83605; 83690; 83735; 85007; 85027; 87635; 90471; 90686; 96361; 96374; 96375; 96376; 99219; 99285; J1200; J1885; J2270; J2550; J2765

== ENCOUNTER 2022-01-23 11:32 | Emergency (ER) | payer OTHER, SELFPAY ==
[2022-01-23 11:41] VITALS: BP 149/104; PULSE 92; RESP 18; TEMP 36.8; O2SAT 99; BMI 25.7
--- NOTE | 2022-01-23 11:42 | ED_ITS ---
HPI - Nausea/Vomiting/Diarrhea General Chief complaint: Nausea/Vomiting/Diarrhea Stated complaint: VOMITINGFLANK PAIN,TREMMORS SINCE LAST NOC PER EMS Time Seen by Provider: 01/23/22 11:41 Source: patient Mode of arrival: EMS Limitations: no limitations History of Present Illness HPI Narrative: Patient with suprapubic pain, chills and continuous vomiting. She has a frequency and dysuria. Patient feels that this is a UTI. Patient with multiple visits for UTI and cyclical vomiting secondary to marijuana use MD elicited complaint: nausea, vomiting, abdominal pain and flank pain Pertinent past history: cyclical vomiting and other (UTI) Onset (ago): day(s) Associated nausea: Yes Location of pain: suprapubic Related Data Home Medications Medication Instructions Recorded Confirmed methenamine hippurate 1 gram tablet 1 tab PO DAILY 07/25/21 09/06/21 Previous Rx's Medication Instructions Recorded ascorbic acid (vitamin C) 1,000 mg 1 g PO DAILY 90 Days #90 tab NS 05/11/21 tablet ondansetron 4 mg disintegrating 4 mg PO Q8H 4 Days #12 tab 01/23/22 tablet Allergies Allergy/AdvReac Type Severity Reaction Status Date / Time amoxicillin [Amoxicillin] Allergy Intermediate HIVES Verified 07/08/21 15:11 tramadol AdvReac Intermediate SOB Verified 07/08/21 15:11 Review of Systems Gastrointestinal: Gastrointestinal: Reports nausea Neurologic: Denies Sensory deficit (Neuro) PMFSH Past Medical History Medical History Abdominal pain Abscess Acidosis, lactic Bacteremia Cocaine abuse Complicated UTI (urinary tract infection) Cyclical vomiting Hidradenitis suppurativa Hypokalemia Hypothyroidism Intractable vomiting Marijuana abuse Opioid abuse Pelvic inflammatory disease Pyelonephritis Pyelonephritis UTI (urinary tract infection) Vomiting Surgical History Tubal ligation status Family History Family History Mother CVD (cardiovascular disease) HTN (hypertension) Maternal Grandmother High cholesterol HTN (hypertension) Maternal Grandfather Prostate cancer Other Heart disease Social History Social History Household Members: Children Housing: House Do you presently have visiting nurse or other home services: No Alcohol intake: never Patient Tobacco Use Status: Current someday Tobacco user Tobacco use type: Cigarette Cigarettes Per Day: 4 Years Smoked: 25 e-Cigarette/Vaping Use: Never Used Second Hand Smoke Exposure: No Use of substances other than those prescribed or required for medical reasons: Yes Substance Use Type: Marijuana Advance Directives: Yes Advance Directives on File: Yes Advance Directives Date on File: 01/02/21 service: No Current occupational status: employed Physical Exam Vital Signs: Vital Signs: Last Vital Signs Temp 98.0 F 01/23/22 13:25 Pulse 88 01/23/22 13:25 Resp 22 H 01/23/22 13:25 BP 169/97 H 01/23/22 13:25 Pulse Ox 100 01/23/22 13:25 BMI result Body Mass Index 25.7 Const: Other: Female in distress, vomiting, anxious Orientation/consciousness: oriented to person and patient oriented x3 Limitations: no limitations HENMT: Head: Yes normal to inspection Ears: external ears normal General nose exam: Normal external nose present Mouth: Normal oral and palatal mucosa present and oropharynx normal Throat: Yes posterior oropharynx normal Eyes: General: appearance normal, both eyes and all related structures Neck: Other: supple Neck: Yes normal visual inspection Chest: Chest palpation & inspection: normal inspection of the chest Resp: Auscultation: clear to auscultation bilaterally Cardio: Jugular venous distension: no JVD Rate: regular rate Rhythm: regular rhythm Heart sounds: S1 normal heart sound present and S2 normal heart sound present GI: Other: suprapubic pain tenderness but not peritoneal Inspection: Yes normal to inspection Auscultation: normal bowel sounds Back/Spine/Pelvis: Other: right sided CVAT greater than left. Skin: General skin exam: no rashes or lesions noted Neuro: General: oriented to person and patient oriented x3 Cranial nerves: Yes CN's II-XII intact bilaterally Motor exam (neuro): 5/5 motor strength present throughout Sensory Exam: No Sensory deficit (Neuro) Extrem: General: Yes normal to inspection Psych: Other: anxious Course Reevaluation(s) Reevaluation #1: patient with UTox positive for Cannibis, Cocaine and fentanyl. she denies being in withdrawal. will dc home. I suggested a lean coach but she denied w anting to speak to someone Time: 15:09 MDM - Nausea/Vomiting/Diarrhea Lab Data Result diagrams: 01/23/22 12:06 01/23/22 13:37 Labs: Lab Results 01/23/22 01/23/22 01/23/22 Range/Units 12:06 12:18 12:18 WBC 9.0 (4.8-10.8) X10*3/uL RBC 4.74 (4.20-5.50) X10*6/uL Hgb 11.2 L (12.0-16.0) g/dl Hct 37.9 (37.0-47.0) % MCV 80.0 (80.0-98.0) fL MCH 23.6 L (27.0-33.0) pg MCHC 29.6 L (31.0-35.0) g/dl RDW 17.9 H (11.0-16.0) % Plt Count 211 (160-400) X10*3/uL MPV 12.6 H (9.4-12.3) fL Immature Gran % (Auto) 0.3 (0.0-0.4) % Neut % (Auto) 84.1 H (45-73) % Lymph % (Auto) 10.3 L (20-40) % [place] % (Auto) 4.7 (2-11) % Eos % (Auto) 0.4 (0-4) % Baso % (Auto) 0.2 (0-2) % Lymph # (Auto) 0.9 L (1.2-4.9) X10*3/uL [place] # (Auto) 0.4 (0.1-1.2) X10*3/uL Eos # (Auto) 0.0 (0.0-0.4) X10*3/uL Baso # (Auto) 0.0 (0.0-0.2) X10*3/uL Abs Immat Gran (auto) 0.03 (0.00-0.03) X10*3/uL Absolute Neuts (auto) 7.6 (2.0-8.3) x10*3/uL Absolute Nucleated RBC 0.000 (0.0-0.012) X10*3/uL Nucleated RBC % (auto) 0.0 (0.0-0.2) /100WBC Sodium (135-145) mmol/L Potassium (3.3-5.1) mmol/L Chloride (96-108) mmol/L Carbon Dioxide (22-29) mmol/L Anion Gap (12-20) BUN (9-16) mg/dL Creatinine (0.5-1.4) mg/dL Estim Creat Clear Calc Estimated GFR Random Glucose (60-115) mg/dL Calcium (8.4-10.2) mg/dL Total Bilirubin (0.0-1.0) mg/dL Direct Bilirubin (0.0-0.5) mg/dL AST (5-31) U/L ALT (0-31) U/L Alkaline Phosphatase (39-117) U/L Total Protein (6.5-8.0) g/dL Albumin (3.5-5.0) g/dL Lipase (8-78) U/L Urine Color STRAW Urine Appearance CLOUDY Urine pH 8.5 H (5.0-8.0) Ur Specific [place] 1.015 (1.005-1.025) Urine Protein TRACE (NEG-TRACE) MG/DL Urine Glucose (UA) NEG (NEG) MG/DL Urine Ketones NEG (NEG) MG/DL Urine Blood NEG (NEG) Urine Nitrite NEG (NEG) Ur Leukocyte Esterase 1+ H (NEG) Urine RBC 0-2 (0) /HPF Urine WBC 10-14 H (0-4) /HPF Ur Squamous Epith Cells 3+ /LPF Amorphous Sediment 1+ /LPF Urine Bacteria 1+ /LPF Urine Test (NEGATIVE) Urine Opiates Screen Not Detected (Not Detect) Urine Fentanyl Screen POSITIVE H (Not Detect) Ur Barbiturates Screen Not Detected (Not Detect) Ur Phencyclidine Scrn Not Detected (Not Detect) Ur Amphetamines Screen Not Detected (Not Detect) U Benzodiazepines Scrn Not Detected (Not Detect) Urine Cocaine Screen POSITIVE H (Not Detect) U Marijuana (THC) Screen POSITIVE H (Not Detect) 01/23/22 01/23/22 Range/Units 12:18 13:37 WBC (4.8-10.8) X10*3/uL RBC (4.20-5.50) X10*6/uL Hgb (12.0-16.0) g/dl Hct (37.0-47.0) % MCV (80.0-98.0) fL MCH (27.0-33.0) pg MCHC (31.0-35.0) g/dl RDW (11.0-16.0) % Plt Count (160-400) X10*3/uL MPV (9.4-12.3) fL Immature Gran % (Auto) (0.0-0.4) % Neut % (Auto) (45-73) % Lymph % (Auto) (20-40) % [place] % (Auto) (2-11) % Eos % (Auto) (0-4) % Baso % (Auto) (0-2) % Lymph # (Auto) (1.2-4.9) X10*3/uL [place] # (Auto) (0.1-1.2) X10*3/uL Eos # (Auto) (0.0-0.4) X10*3/uL Baso # (Auto) (0.0-0.2) X10*3/uL Abs Immat Gran (auto) (0.00-0.03) X10*3/uL Absolute Neuts (auto) (2.0-8.3) x10*3/uL Absolute Nucleated RBC (0.0-0.012) X10*3/uL Nucleated RBC % (auto) (0.0-0.2) /100WBC Sodium 137 (135-145) mmol/L Potassium 4.0 D (3.3-5.1) mmol/L Chloride 108 (96-108) mmol/L Carbon Dioxide 18 L (22-29) mmol/L Anion Gap 15 (12-20) BUN 11 (9-16) mg/dL Creatinine 0.76 (0.5-1.4) mg/dL Estim Creat Clear Calc 89.5 Estimated GFR > 60 Random Glucose 106 (60-115) mg/dL Calcium 8.7 D (8.4-10.2) mg/dL Total Bilirubin 0.3 (0.0-1.0) mg/dL Direct Bilirubin 0.2 (0.0-0.5) mg/dL AST 19 (5-31) U/L ALT 17 (0-31) U/L Alkaline Phosphatase 57 (39-117) U/L Total Protein 7.9 (6.5-8.0) g/dL Albumin 4.1 (3.5-5.0) g/dL Lipase 80 H (8-78) U/L Urine Color Urine Appearance Urine pH (5.0-8.0) Ur Specific [place] (1.005-1.025) Urine Protein (NEG-TRACE) MG/DL Urine Glucose (UA) (NEG) MG/DL Urine Ketones (NEG) MG/DL Urine Blood (NEG) Urine Nitrite (NEG) Ur Leukocyte Esterase (NEG) Urine RBC (0) /HPF Urine WBC (0-4) /HPF Ur Squamous Epith Cells /LPF Amorphous Sediment /LPF Urine Bacteria /LPF Urine Test NEGATIVE (NEGATIVE) Urine Opiates Screen (Not Detect) Urine Fentanyl Screen (Not Detect) Ur Barbiturates Screen (Not Detect) Ur Phencyclidine Scrn (Not Detect) Ur Amphetamines Screen (Not Detect) U Benzodiazepines Scrn (Not Detect) Urine Cocaine Screen (Not Detect) U Marijuana (THC) Screen (Not Detect) Discharge Plan Discharge Clinical Impression: Polysubstance (including opioids) dependence with physiol dependence, Cyclical vomiting Patient Disposition: Home, Self-Care Instructions: Cocaine Abuse (ED), Acute Nausea and Vomiting (ED), Cannabis Abuse (ED) Prescriptions: New ondansetron 4 mg tablet,disintegrating 4 mg PO Q8H 4 Days Qty: 12 0RF No Action ascorbic acid (vitamin C) 1,000 mg tablet 1 g PO DAILY 90 Days Qty: 90 0RF methenamine hippurate 1 gram tablet 1 tab PO DAILY 0RF Referrals: Navi Real MD [Primary Care Provider] - 1 week
[2022-01-23] MEDS: 0.9 % Sodium Chloride 1,000 ML 999 ML IVCONT ×2 (12:10→12:13)
[2022-01-23] MEDS: ondansetron HCL 4 MG/2 ML VIAL IVPUSH (12:10)
--- NOTE | 2022-01-23 12:13 | MHC.RECOVSUP ---
? Reason for consult:recovery Support o Current location:[facility] o Identified substance use concern: Percocet - Withdrawal - Support ? Intervention: o Community resources provided o Harm reduction discussion ? Plan: o Referral to [facility] o Patient to follow up with [facility] after discharge ? Additional information: patient deinies having a problem, refuses to go to detox, patient referred to the [facility] and [facility].
[2022-01-23 12:15] LABS: MANUAL DIFF FLAG NO
[2022-01-23 12:31] LABS: Appearance Urine CLOUDY; Color Urine STRAW; Glucose Urine UA NEG (NEG); Leukocyte Esterase Urine 1+ (NEG); Nitrite Urine NEG (NEG); PH 8.5 (5.0-8.0); Specific Gravity - Urine 1.015 (1.005-1.025); UACC Culture Trigger YES; Urine Blood NEG (NEG); Urine Ketones NEG (NEG); Urine Protein TRACE MG/DL (NEG-TRACE)
[2022-01-23 12:33] LABS: UPreg QC Valid YES; Urine Pregnancy NEGATIVE (NEGATIVE)
[2022-01-23 12:38] LABS: Amorphous Sediment Urine 1+ /LPF; Bacteria Urine 1+ /LPF; RBC Urine 0-2 /HPF (0); Squamous Epithelial Cell Urine 3+ /LPF
[2022-01-23 12:40] LABS: Basophils Percent Auto 0.2 % (0-2); Eosinophils Percent Auto 0.4 % (0-4); Hematocrit 37.9 % (37.0-47.0); Hemoglobin 11.2 g/dl (12.0-16.0); Imm Gran Abs Auto 0.03 X10*3/uL (0.00-0.03); Imm Gran Pct Auto 0.3 % (0.0-0.4); Lymphocytes Absolute Auto 0.9 X10*3/uL (1.2-4.9); Lymphocytes Percent Auto 10.3 % (20-40); Mean Corpuscular HGB Conc 29.6 g/dl (31.0-35.0); Mean Corpuscular Hemoglobin 23.6 pg (27.0-33.0); Mean Platelet Volume 12.6 fL (9.4-12.3); Monocytes Absolute Auto 0.4 X10*3/uL (0.1-1.2); Monocytes Percent Auto 4.7 % (2-11); Neutrophils Absolute Auto 7.6 x10*3/uL (2.0-8.3); Neutrophils Percent Auto 84.1 % (45-73); Platelet Count 211 X10*3/uL (160-400); Red Blood Count 4.74 X10*6/uL (4.20-5.50); Red Cell Distribution Width 17.9 % (11.0-16.0)
[2022-01-23 12:48] LABS: Amphetamine Screen Urine Not Detected (Not Detect); Barbiturates, Urine Not Detected (Not Detect); Benzodiazepines Screen Urine Not Detected (Not Detect); Cannabinoid Screen Urine POSITIVE (Not Detect); Cocaine Screen Urine POSITIVE (Not Detect); Fentanyl, urine POSITIVE (Not Detect); Opiate Screen Urine Not Detected (Not Detect); Phencyclidine Screen Urine Not Detected (Not Detect)
[2022-01-23] MEDS: diphenhydrAMINE HCL 50 MG/ML VIAL 25 MG IVPUSH (13:23)
[2022-01-23] MEDS: Haloperidol Lactate 5 MG/ML VIAL IVPUSH (13:24)
[2022-01-23 13:25] VITALS: BP 169/97; PULSE 88; RESP 22; TEMP 36.7; O2SAT 100
[2022-01-23 14:00] LABS: Alanine Aminotransferase 17 U/L (0-31); Albumin Level 4.1 g/dL (3.5-5.0); Alkaline Phosphatase 57 U/L (39-117); Anion Gap 15 (12-20); Aspartate Amino Transferase 19 U/L (5-31); Bilirubin Direct 0.2 mg/dL (0.0-0.5); Bilirubin Total 0.3 mg/dL (0.0-1.0); Blood Urea Nitrogen 11 mg/dL (9-16); Calcium 8.7 mg/dL (8.4-10.2); Carbon Dioxide 18 mmol/L (22-29); Chloride 108 mmol/L (96-108); Creatinine Clr Calc Pharmacy 89.5; Estimated Glomerular Filt Rate > 60; Glucose Random 106 mg/dL (60-115); Lipase 80 U/L (8-78); Sodium 137 mmol/L (135-145); Total Protein 7.9 g/dL (6.5-8.0)
[2022-01-23 15:32] VITALS: BP 147/88; PULSE 104; RESP 16; O2SAT 100
== END 2022-01-23 15:40 | disposition home or self-care (01) ==
PROVIDERS: Nurse Practitioner Family; Emergency Provider Emergency Medicine; PCP Family Medicine
DX: R11.15 Cyclical vomiting syndrome unrelated to migraine (principal); F12.20 Cannabis dependence, uncomplicated; F19.20 Other psychoactive substance dependence, uncomplicated; F14.20 Cocaine dependence, uncomplicated; F11.20 Opioid dependence, uncomplicated; F17.200 Nicotine dependence, unspecified, uncomplicated
CPT/HCPCS: 36415; 80048; 80076; 80307; 81001; 81025; 83690; 85025; 87086; 87147; 96361; 96374; 96375; 99284; J1200; J2405; J2550

== ENCOUNTER 2022-04-21 17:49 | Emergency (ER) | payer OTHER, SELFPAY ==
[2022-04-21 18:25] VITALS: BP 160/100; PULSE 72; PULSE 90; RESP 18; TEMP 37.2; O2SAT 100; O2SAT 98; BMI 24.1
[2022-04-21] MEDS: ondansetron HCL 4 MG/2 ML VIAL IVPUSH (18:36)
[2022-04-21] MEDS: 0.9 % Sodium Chloride 1,000 ML 999 ML IV (18:36)
[2022-04-21] MEDS: Ketorolac Tromethamine 30 MG/ML VIAL IVPUSH (19:19)
--- NOTE | 2022-04-21 19:37 | ED_ITS ---
HPI - Abdominal Pain General Chief Complaint: Nausea/Vomiting/Diarrhea Stated Complaint: abd pain/?uti Time Seen by Provider: 04/21/22 18:12 Source: patient Mode of arrival: ambulatory Limitations: no limitations History of Present Illness HPI narrative: Patient presents to the emergency department for evaluation of nausea vomiting and lower abdominal pain. She also reports dysuria and urinary frequency. She reports feeling this way in the past with prior urinary tract infections. She has had symptoms for 3 days with a become increasingly worse. Denies fevers, chills, chest pain, palpitations, shortness of breath and difficulty breathing, upper abdominal pain, constipation, diarrhea, hematuria, abnormal vaginal discharge, possibility of Related Data Home Medications Medication Instructions Recorded Confirmed methenamine hippurate 1 gram tablet 1 tab PO DAILY 07/25/21 09/06/21 Previous Rx's Medication Instructions Recorded ascorbic acid (vitamin C) 1,000 mg 1 g PO DAILY chronic uti 90 days 05/11/21 tablet #90 tabs ondansetron 4 mg disintegrating 4 mg PO Q8H 4 days #12 tabs 01/23/22 tablet Allergies Allergy/AdvReac Type Severity Reaction Status Date / Time amoxicillin [Amoxicillin] Allergy Intermediate HIVES Verified 07/08/21 15:11 tramadol AdvReac Intermediate SOB Verified 07/08/21 15:11 Review of Systems Review of Systems Constitutional : No Weight loss, No Fever, No Chills ENT/Mouth :? No sore throat, No Rhinorrhea Eyes: No Swelling, No Redness Cardiovascular : No Chest Pain, No SOB, No Edema Respiratory : No Cough, No Sputum, No Wheezing Gastrointestinal : Positive Nausea, Positive Vomiting, no Diarrhea, positive abdominal pain, No Hematochezia, No Melena Genitourinary : Positive Dysuria, positive Urinary Frequency, No Hematuria, No Urgency? Musculoskeletal : No joint pain, No Myalgias, No Joint Swelling Skin : No Skin Lesions, No rash Neuro : No Weakness, No Numbness, No Dizziness, No Headache Psych : No Anxiety/Panic, No Depression Heme/Lymph: No Bruising, No Lymphadenopathy Endocrine : No Polyuria, No Polydipsia Yes all other systems are reviewed and are negative PMFSH Past Medical History Attestation statement: The following information was validated with the patient. Source: old records reviewed Medical History Abdominal pain Abscess Acidosis, lactic Bacteremia Cocaine abuse Complicated UTI (urinary tract infection) Cyclical vomiting Hidradenitis suppurativa Hypokalemia Hypothyroidism Intractable vomiting Marijuana abuse Opioid abuse Pelvic inflammatory disease Pyelonephritis Pyelonephritis UTI (urinary tract infection) Vomiting Surgical History Tubal ligation status Family History Family History Mother CVD (cardiovascular disease) HTN (hypertension) Maternal Grandmother High cholesterol HTN (hypertension) Maternal Grandfather Prostate cancer Other Heart disease Social History Social History Household Members: Children Housing: House Do you presently have visiting nurse or other home services: No Alcohol intake: never Patient Tobacco Use Status: Current someday Tobacco user Tobacco use type: Cigarette Cigarettes Per Day: 4 Years Smoked: 25 Smoked in Last 30 Days: No e-Cigarette/Vaping Use: Never Used Second Hand Smoke Exposure: No Use of substances other than those prescribed or required for medical reasons: Yes Substance Use Type: Marijuana Substance Use Frequency: Daily Last Used Substance: Hours (ago) Any prior treatment program specific to substance use: No Advance Directives: Yes Advance Directives on File: Yes Advance Directives Date on File: 01/02/21 Patient : No service: No Current occupational status: employed Physical Exam ED Vital Signs: Vital Signs - 24 hr 04/21/22 18:25 Temperature 99.0 F Pulse Rate 90 Respiratory Rate 18 Pulse Oximetry 100 Oxygen Delivery Method Room Air BMI result Body Mass Index 24.1 Vital signs have been reviewed as normal and appeared to be correct. Blood pressure normal.? Heart rate normal.? Respiration rate normal. Temperature normal.? Oxygen saturation normal. Appearance: Alert.?Oriented to person, place and time. No acute distress.?Normal affect. Eyes: Pupils equal, round and reactive to light.? ENT: Pharynx normal.?? Neck: Normal inspection.? Neck supple.?? CVS: Heart sounds normal. Normal heart rate and rhythm.? Pulses normal.?? Respiratory: No respiratory distress.? Lung sounds clear to auscultation bilaterally?? Abdomen: Soft and non-tender. Normoactive bowel sounds. No pulsatile mass.??No CVA tenderness Skin: Skin warm and dry.? Normal skin color.? Extremities: No lower extremity edema.? Neuro: Moves all extremities spontaneously. Sensation intact bilaterally. No motor deficits Ambulates with normal steady gait. Course Course Course Narrative: Patient is a 42-year-old female with a past medical history of urinary tract infection, cyclical vomiting presenting to emergency department for evaluation of nausea vomiting and abdominal pain and urinary symptoms. Patient does endorse daily marijuana usage, denies any other drug usage. Will obtain CBC, CMP/lipase, urinalysis, urine , drug abuse screen. Patient to receive Zofran 4 mg IV, and Toradol 30 mg IV, saline 1 L bolus. Disposition pending results. Reevaluation(s) Reevaluation #1: Serum labs are pending at this time. Patient continues to have nausea with significant dry heaving and small amount of emesis and lower abdominal pain. Will trial Reglan 10 mg IV, and Benadryl 50 mg IV. Time: 20:06 Reevaluation #2: CBC reveals a microcytic anemia consistent with baseline. CMP is overall unremarkable, lipase normal. Urinalysis positive for nitrates, 3+ leuk esterase, in addition to symptoms consistent with urinary tract infection, will treat with Macrobid b.i.d. for 5 days, patient to receive the first dose in the emergency department. Urine test is negative. Patient is tearful, reporting severe pain, 10/10, requesting additional pain medication at this time . Will trial morphine 4mg IV for pain. Time: 20:39 Reevaluation #3: Patient signed out to Dr. Maldonado pending symptomatic treatment, p.o. trial. Time: 21:07 MDM - Abdominal Pain Lab Data Result diagrams: 04/21/22 19:59 04/21/22 19:59 Labs: Lab Results 04/21/22 04/21/22 04/21/22 Range/Units 19:59 19:59 20:11 WBC 9.6 (4.8-10.8) X10*3/uL RBC 4.46 (4.20-5.50) X10*6/uL Hgb 10.8 L (12.0-16.0) g/dl Hct 35.5 L (37.0-47.0) % MCV 79.6 L (80.0-98.0) fL MCH 24.2 L (27.0-33.0) pg MCHC 30.4 L (31.0-35.0) g/dl RDW 16.9 H (11.0-16.0) % Plt Count 215 (160-400) X10*3/uL MPV 11.8 (9.4-12.3) fL Immature Gran % (Auto) 0.2 (0.0-0.4) % Neut % (Auto) 88.7 H (45-73) % Lymph % (Auto) 7.9 L (20-40) % [place] % (Auto) 2.9 (2-11) % Eos % (Auto) 0.1 (0-4) % Baso % (Auto) 0.2 (0-2) % Lymph # (Auto) 0.8 L (1.2-4.9) X10*3/uL [place] # (Auto) 0.3 (0.1-1.2) X10*3/uL Eos # (Auto) 0.0 (0.0-0.4) X10*3/uL Baso # (Auto) 0.0 (0.0-0.2) X10*3/uL Abs Immat Gran (auto) 0.02 (0.00-0.03) X10*3/uL Absolute Neuts (auto) 8.5 H (2.0-8.3) x10*3/uL Absolute Nucleated RBC 0.000 (0.0-0.012) X10*3/uL Nucleated RBC % (auto) 0.0 (0.0-0.2) /100WBC Sodium 140 (135-145) mmol/L Potassium 3.6 (3.3-5.1) mmol/L Chloride 109 H (96-108) mmol/L Carbon Dioxide 18 L (22-29) mmol/L Anion Gap 17 (12-20) BUN 11 (9-16) mg/dL Creatinine 0.83 (0.5-1.4) mg/dL Estim Creat Clear Calc 74.6 Estimated GFR > 60 Random Glucose 100 (60-115) mg/dL Calcium 9.5 D (8.4-10.2) mg/dL Total Bilirubin 0.9 (0.0-1.0) mg/dL AST 18 (5-31) U/L ALT 15 (0-31) U/L Alkaline Phosphatase 68 (39-117) U/L Total Protein 8.7 H (6.5-8.0) g/dL Albumin 4.6 (3.5-5.0) g/dL Lipase 44 (8-78) U/L Urine Color YELLOW Urine Appearance CLOUDY Urine pH 8.5 H (5.0-8.0) Ur Specific [place] 1.020 (1.005-1.025) Urine Protein TRACE (NEG-TRACE) MG/DL Urine Glucose (UA) NEG (NEG) MG/DL Urine Ketones 15 (NEG) MG/DL Urine Blood TRACE (NEG) Urine Nitrite POS H (NEG) Ur Leukocyte Esterase 3+ H (NEG) Urine RBC 1-4 (0) /HPF Urine WBC 50-75 H (0-4) /HPF Ur Squamous Epith Cells 3+ /LPF Urine Bacteria 2+ /LPF Urine Trichomonas NOTED Urine Test (NEGATIVE) Urine Opiates Screen (Not Detect) Urine Fentanyl Screen (Not Detect) Ur Barbiturates Screen (Not Detect) Ur Phencyclidine Scrn (Not Detect) Ur Amphetamines Screen (Not Detect) U Benzodiazepines Scrn (Not Detect) Urine Cocaine Screen (Not Detect) U Marijuana (THC) Screen (Not Detect) 04/21/22 04/21/22 Range/Units 20:11 20:11 WBC (4.8-10.8) X10*3/uL RBC (4.20-5.50) X10*6/uL Hgb (12.0-16.0) g/dl Hct (37.0-47.0) % MCV (80.0-98.0) fL MCH (27.0-33.0) pg MCHC (31.0-35.0) g/dl RDW (11.0-16.0) % Plt Count (160-400) X10*3/uL MPV (9.4-12.3) fL Immature Gran % (Auto) (0.0-0.4) % Neut % (Auto) (45-73) % Lymph % (Auto) (20-40) % [place] % (Auto) (2-11) % Eos % (Auto) (0-4) % Baso % (Auto) (0-2) % Lymph # (Auto) (1.2-4.9) X10*3/uL [place] # (Auto) (0.1-1.2) X10*3/uL Eos # (Auto) (0.0-0.4) X10*3/uL Baso # (Auto) (0.0-0.2) X10*3/uL Abs Immat Gran (auto) (0.00-0.03) X10*3/uL Absolute Neuts (auto) (2.0-8.3) x10*3/uL Absolute Nucleated RBC (0.0-0.012) X10*3/uL Nucleated RBC % (auto) (0.0-0.2) /100WBC Sodium (135-145) mmol/L Potassium (3.3-5.1) mmol/L Chloride (96-108) mmol/L Carbon Dioxide (22-29) mmol/L Anion Gap (12-20) BUN (9-16) mg/dL Creatinine (0.5-1.4) mg/dL Estim Creat Clear Calc Estimated GFR Random Glucose (60-115) mg/dL Calcium (8.4-10.2) mg/dL Total Bilirubin (0.0-1.0) mg/dL AST (5-31) U/L ALT (0-31) U/L Alkaline Phosphatase (39-117) U/L Total Protein (6.5-8.0) g/dL Albumin (3.5-5.0) g/dL Lipase (8-78) U/L Urine Color Urine Appearance Urine pH (5.0-8.0) Ur Specific [place] (1.005-1.025) Urine Protein (NEG-TRACE) MG/DL Urine Glucose (UA) (NEG) MG/DL Urine Ketones (NEG) MG/DL Urine Blood (NEG) Urine Nitrite (NEG) Ur Leukocyte Esterase (NEG) Urine RBC (0) /HPF Urine WBC (0-4) /HPF Ur Squamous Epith Cells /LPF Urine Bacteria /LPF Urine Trichomonas Urine Test NEGATIVE (NEGATIVE) Urine Opiates Screen Not Detected (Not Detect) Urine Fentanyl Screen POSITIVE H (Not Detect) Ur Barbiturates Screen Not Detected (Not Detect) Ur Phencyclidine Scrn Not Detected (Not Detect) Ur Amphetamines Screen Not Detected (Not Detect) U Benzodiazepines Scrn Not Detected (Not Detect) Urine Cocaine Screen POSITIVE H (Not Detect) U Marijuana (THC) Screen POSITIVE H (Not Detect) Discharge Plan Discharge Clinical Impression: Urinary tract infection Instructions: Urinary Tract Infection in Women (ED) Prescriptions: No Action ascorbic acid (vitamin C) 1,000 mg tablet 1 g PO DAILY 90 Days Qty: 90 0RF methenamine hippurate 1 gram tablet 1 tab PO DAILY ondansetron 4 mg tablet,disintegrating 4 mg PO Q8H 4 Days Qty: 12 0RF
[2022-04-21 20:03] LABS: MANUAL DIFF FLAG NO
[2022-04-21] MEDS: diphenhydrAMINE HCL 50 MG/ML VIAL IVPUSH (20:18)
[2022-04-21] MEDS: Metoclopramide HCl 10 MG/2 ML VIAL IVPUSH (20:18)
[2022-04-21 20:19] LABS: Basophils Percent Auto 0.2 % (0-2); Eosinophils Percent Auto 0.1 % (0-4); Hematocrit 35.5 % (37.0-47.0); Hemoglobin 10.8 g/dl (12.0-16.0); Imm Gran Abs Auto 0.02 X10*3/uL (0.00-0.03); Imm Gran Pct Auto 0.2 % (0.0-0.4); Lymphocytes Absolute Auto 0.8 X10*3/uL (1.2-4.9); Lymphocytes Percent Auto 7.9 % (20-40); Mean Corpuscular HGB Conc 30.4 g/dl (31.0-35.0); Mean Corpuscular Hemoglobin 24.2 pg (27.0-33.0); Mean Corpuscular Volume 79.6 fL (80.0-98.0); Mean Platelet Volume 11.8 fL (9.4-12.3); Monocytes Absolute Auto 0.3 X10*3/uL (0.1-1.2); Monocytes Percent Auto 2.9 % (2-11); Neutrophils Absolute Auto 8.5 x10*3/uL (2.0-8.3); Neutrophils Percent Auto 88.7 % (45-73); Platelet Count 215 X10*3/uL (160-400); Red Blood Count 4.46 X10*6/uL (4.20-5.50); Red Cell Distribution Width 16.9 % (11.0-16.0); White Blood Count 9.6 X10*3/uL (4.8-10.8)
[2022-04-21 20:23] LABS: Appearance Urine CLOUDY; Color Urine YELLOW; Glucose Urine UA NEG (NEG); Leukocyte Esterase Urine 3+ (NEG); Nitrite Urine POS (NEG); PH 8.5 (5.0-8.0); UACC Culture Trigger YES; UPreg QC Valid YES; Urine Blood TRACE (NEG); Urine Ketones 15 MG/DL (NEG); Urine Pregnancy NEGATIVE (NEGATIVE); Urine Protein TRACE MG/DL (NEG-TRACE)
[2022-04-21 20:29] LABS: Alanine Aminotransferase 15 U/L (0-31); Albumin Level 4.6 g/dL (3.5-5.0); Alkaline Phosphatase 68 U/L (39-117); Anion Gap 17 (12-20); Aspartate Amino Transferase 18 U/L (5-31); Bilirubin Total 0.9 mg/dL (0.0-1.0); Blood Urea Nitrogen 11 mg/dL (9-16); Calcium 9.5 mg/dL (8.4-10.2); Carbon Dioxide 18 mmol/L (22-29); Chloride 109 mmol/L (96-108); Creatinine Clr Calc Pharmacy 74.6; Estimated Glomerular Filt Rate > 60; Glucose Random 100 mg/dL (60-115); Lipase 44 U/L (8-78); Potassium 3.6 mmol/L (3.3-5.1); Sodium 140 mmol/L (135-145); Total Protein 8.7 g/dL (6.5-8.0)
[2022-04-21 20:37] LABS: Bacteria Urine 2+ /LPF; Squamous Epithelial Cell Urine 3+ /LPF; Trichomonas Urine NOTED; WBC Urine 50-75 /HPF (0-4)
[2022-04-21 20:53] LABS: Amphetamine Screen Urine Not Detected (Not Detect); Barbiturates, Urine Not Detected (Not Detect); Benzodiazepines Screen Urine Not Detected (Not Detect); Cannabinoid Screen Urine POSITIVE (Not Detect); Cocaine Screen Urine POSITIVE (Not Detect); Fentanyl, urine POSITIVE (Not Detect); Opiate Screen Urine Not Detected (Not Detect); Phencyclidine Screen Urine Not Detected (Not Detect)
[2022-04-21 21:17] VITALS: BP 170/97; PULSE 83; RESP 20; O2SAT 100
[2022-04-21] MEDS: Morphine Sulfate 4 MG/ML CARTRIDGE IVPUSH (21:21)
[2022-04-21] MEDS: Nitrofurantoin Monohyd/M-Cryst 100 MG CAPSULE PO (21:21)
[2022-04-21] MEDS: LORazepam 2 MG/ML VIAL 1 MG IVPUSH (21:21)
[2022-04-21 22:41] VITALS: BP 165/88
[2022-04-21] MEDS: cefTRIAXone sodium 1 GM in 0.9 % Sodium Chloride 50 ML IV (23:46)
[2022-04-22 00:34] VITALS: BP 145/78; PULSE 82; RESP 18; TEMP 36.1; O2SAT 100
== END 2022-04-22 00:55 | disposition home or self-care (01) ==
PROVIDERS: Nurse Practitioner Family; Emergency Provider Internal Medicine
DX: N39.0 Urinary tract infection, site not specified (principal); R10.30 Lower abdominal pain, unspecified; R11.2 Nausea with vomiting, unspecified; F12.10 Cannabis abuse, uncomplicated; F19.10 Other psychoactive substance abuse, uncomplicated; F17.200 Nicotine dependence, unspecified, uncomplicated; Z79.899 Other long term (current) drug therapy
CPT/HCPCS: 36415; 80053; 80307; 81001; 81025; 83690; 85025; 87086; 87088; 87186; 96361; 96365; 96375; 99284; J0696; J1200; J1885; J2060; J2270; J2405; J2765

== ENCOUNTER 2024-06-22 15:34 | Emergency (ER) | payer OTHER, SELFPAY ==
--- NOTE | ~2024-06-22 | CT_ITS ---
EXAMINATION: CT ABDOMEN AND PELVIS WITH CONTRAST CLINICAL INFORMATION: lower abdominal pain COMPARISON: 08/07/2021 TECHNIQUE: Multidetector volumetric imaging was performed from the superior aspect of the liver through the pubic symphysis following administration of 85 mL Omnipaque 300 intravenous contrast. Sagittal and coronal reformatted images were obtained on the technologist workstation.. This CT examination was performed using dose optimization techniques as appropriate, variously including the following: *Automated exposure control *Adjustment of mA and/or kV according to patient size (this includes techniques or standardized protocols for targeted exams where dose is matched to indication/reason for exam; i.e. extremities or head) *Use of iterative reconstruction technique DLP: 511 mGy-cm FINDINGS: LUNG BASES: The visualized lung bases are unremarkable. LIVER, GALLBLADDER, AND BILIARY TREE: The liver is normal in size, shape, and attenuation. No focal hepatic lesion or biliary ductal dilatation is present. The gallbladder is unremarkable with no evidence of radiopaque gallstones, gallbladder wall thickening, or obvious pericholecystic inflammatory changes. PANCREAS: Unremarkable. SPLEEN: Unremarkable. ADRENAL GLANDS: Unremarkable. KIDNEYS AND URETERS: The kidneys are normal in size, shape, and attenuation. No hydronephrosis, hydroureter, or perinephric stranding. No calculi. BLADDER: Bladder is decompressed. Low-attenuation fluid collection along the urethra likely represents a urethral diverticulum now with tiny calcifications in the dependent aspect. The calcifications within the urethral diverticulum are new from the prior 2020 study. I do not appreciate any significant surrounding inflammatory changes or obvious enhancement. GASTROINTESTINAL TRACT: Colon is mostly decompressed. I do not appreciate any colonic wall thickening or pericolonic inflammatory changes. Unremarkable appendix in the right lower quadrant. Small bowel is also mostly decompressed and grossly unremarkable ABDOMINAL WALL: No significant hernia is appreciated. LYMPHOVASCULAR STRUCTURES: Vascular calcification within the aorta PELVIC VISCERA: Unremarkable. OSSEOUS STRUCTURES: Mild degenerative changes in the hips CT/CT abdomen pelvis w IV con IMPRESSION: Low-attenuation 2 cm fluid collection along the urethra likely represents a urethral diverticulum now with tiny calcifications in the dependent aspect. The calcifications are new from the prior 2020 study.
[2024-06-22 16:24] VITALS: BP 136/78; BP 174/82; PULSE 71; PULSE 96; RESP 16; TEMP 37.2; O2SAT 100; O2SAT 99; BMI 27.5
--- NOTE | 2024-06-22 16:30 | ED.FEMALEGU ---
HPI - Female Genitourinary General Chief complaint: Urogenital-Female Stated complaint: NAUSEA VOMITING Time Seen by Provider: 06/22/24 16:11 Source: patient, RN notes reviewed and old records reviewed Mode of arrival: EMS Limitations: no limitations History of Present Illness ED Provider: Pasquale IGLESIAS Narrative: Medical history significant for polysubstance abuse, hypothyroidism presents for evaluation abdominal pain and vomiting. Patient reports that she has had lower abdominal pain that radiates around to her right flank for the last 2 days. She states that she has had vomiting that started today at 8:00 a.m. She complains of 10/10 abdominal pain Patient reports that she had ?an infection in my stomach treated at [facility] a few months ago. ? Is unsure exactly what her diagnosis was at that time The patient denies any active substance abuse Subjective fevers but did not take a temperature today Patient denies any new sexual partners but states that she is concerned she has ?an STD. She reports that she had an abdominal surgery in her childhood which she ?thinks may have been a hernia repair. ? Related Data Home Medications ?Medication ?Instructions ?Recorded ?Confirmed methenamine hippurate 1 gram tablet 1 tab PO DAILY 07/25/21 09/06/21 Previous Rx's ?Medication ?Instructions ?Recorded ascorbic acid (vitamin C) 1,000 mg 1 g PO DAILY chronic uti 90 days 05/11/21 tablet #90 tabs ondansetron 4 mg disintegrating 4 mg PO Q8H 4 days #12 tabs 01/23/22 tablet nitrofurantoin 100 mg PO Q12H 5 days #10 caps 04/21/22 monohydrate/macrocrystals 100 mg capsule (Macrobid) ondansetron 4 mg disintegrating 4 mg PO Q6-8H PRN nausea and 04/22/22 tablet vomiting #10 tabs doxycycline hyclate 100 mg tablet 100 mg PO BID #28 tabs 06/22/24 metronidazole 500 mg tablet 500 mg PO Q12H #28 tabs 06/22/24 Allergies Allergy/AdvReac Type Severity Reaction Status Date / Time amoxicillin [Amoxicillin] Allergy Intermediate HIVES Verified 06/22/24 16:29 tramadol AdvReac Intermediate SOB Verified 06/22/24 16:29 Review of Systems Constitutional: Constitutional: Denies body ache(s), Reports chills, Reports fever(s) and Denies headache(s) Eyes: Eyes: Denies blurry vision ENT: Denies headache(s) and Denies sore throat Cardiovascular: Cardiovascular: Denies chest pain and Denies dyspnea Respiratory: Respiratory: Denies cough and Denies dyspnea Gastrointestinal: Gastrointestinal: Reports abdominal pain, Denies hematochezia, Denies diarrhea, Reports nausea and Reports vomiting Genitourinary: Genitourinary: Reports pelvic pain and Reports flank pain Musculoskeletal: Musculoskeletal: Reports back pain Integumentary/Breasts: Skin/Breast: Denies rash Neurologic: Denies headache(s) Psychiatric: Psychiatric: Denies anxiety and Denies suicidal ideation [facility] Past Medical History Medical History Abdominal pain Abscess Acidosis, lactic Bacteremia Cocaine abuse Complicated UTI (urinary tract infection) Cyclical vomiting Hidradenitis suppurativa Hypokalemia Hypothyroidism Intractable vomiting Marijuana abuse Opioid abuse Pelvic inflammatory disease Pyelonephritis Pyelonephritis UTI (urinary tract infection) Vomiting Surgical History Tubal ligation status Family History Family History Mother CVD (cardiovascular disease) HTN (hypertension) Maternal Grandmother High cholesterol HTN (hypertension) Maternal Grandfather Prostate cancer Other Heart disease Social History Social History Household Members: Children Housing: House Do you presently have visiting nurse or other home services: No Alcohol intake: current Alcohol intake frequency: a few times a week Alcohol type: wine and hard liquor Comment: no bm yet Patient Tobacco Use Status: Current someday Tobacco user Tobacco use type: Cigarette Cigarettes Per Day: 4 Years Smoked: 25 Smoked in Last 30 Days: No e-Cigarette/Vaping Use: Never Used Second Hand Smoke Exposure: No Use of substances other than those prescribed or required for medical reasons: No Substance Use Type: Marijuana Advance Directives: Yes Advance Directives on File: Yes Advance Directives Date on File: 01/02/21 Patient : No service: No Current occupational status: employed Physical Exam Vital Signs: Vital Signs: Last Vital Signs Temp 99 F 06/22/24 16:24 Pulse 80 06/22/24 18:57 Resp 16 06/22/24 18:57 BP 161/96 H 06/22/24 18:57 Pulse Ox 100 06/22/24 18:57 O2 Del Method Room Air 06/22/24 18:57 BMI result Body Mass Index 27.5 Const: General: healthy appearing, comfortable, no acute distress, alert and awake Nutritional Appearance: well nourished Orientation/consciousness: patient oriented x3 HEENT: Head: Yes normocephalic and Yes atraumatic Eyes: Eyelids: Yes eyelids normal Conjunctivae: conjunctivae normal Sclerae: sclerae normal Corneas: corneas normal Pupils: Equal, round and reactive pupils present EOM: EOMs intact bilaterally Neck: Neck: Yes full ROM Resp: Effort & Inspection: normal respiratory effort, able to speak in complete sentences and not labored : External Female Exam: normal external appearance and normal appearance of the urethra Speculum Exam - Vagina: normal appearance of the vagina Speculum Exam - Cervix: normal appearance of the cervix, Cervical os closed, Abnormal cervical discharge present white and Cervical tenderness present Bimanual exam- vagina & uterus: Cervical tenderness present Bimanual Exam- Adnexa, other: normal adnexae, no tenderness and No adnexal tenderness Skin: General skin exam: elasticity normal Neuro: General: patient oriented x3 Cranial nerves: Yes Equal, round and reactive pupils present and Yes Bilaterally intact EOM present Cognition (Neuro): normal cognition Course Reevaluation(s) Reevaluation #1: Addendum patient's CT scan shows a urethral diverticulum which appears new when compared to July of 2021. Pelvic examination does not show any obvious abscess in this area but does show some vaginal discharge and positive cervical motion tenderness, we will treat as presumed PID. The patient can be referred to both Urology for the urethral diverticulum and OBGYN PID follow-up Time: 21:00 Medications Administered Discontinued Medications Generic Name Dose Route Start Last Admin Trade Name Freq PRN Reason Stop Dose Admin Diphenhydramine HCl 25 mg 06/22/24 16:18 06/22/24 17:10 Diphenhydramine Hcl 50 Mg/Ml Vial IVPUSH 06/22/24 16:19 25 mg ONCE ONE Administration Sodium Chloride 1,000 mls @ 999 mls/hr 06/22/24 16:30 06/22/24 18:52 Ns IV 06/22/24 17:30 Infused .Q1H1M VICTOR M Infusion Iohexol 85 ml 06/22/24 19:18 06/22/24 19:19 Iohexol 350 Mg/Ml 100 Ml Infus..Btl IV 06/22/24 19:19 85 ml ONCE ONE Administration Metoclopramide HCl 10 mg 06/22/24 16:18 06/22/24 17:10 Metoclopramide Hcl 10 Mg/2 Ml Vial IVPUSH 06/22/24 16:19 10 mg ONCE ONE Administration Morphine Sulfate 4 mg 06/22/24 16:18 06/22/24 17:10 Morphine Sulfate 4 Mg/Ml Cartridge IVPUSH 06/22/24 16:19 4 mg ONCE ONE Administration Protocol Morphine Sulfate 4 mg 06/22/24 18:37 06/22/24 18:57 Morphine Sulfate 4 Mg/Ml Cartridge IVPUSH 06/22/24 18:38 4 mg ONCE ONE Administration Protocol Medical Decision Making Medical Decision Making [facility] Narrative: 44-year-old female with past medical history as documented above presents for evaluation of abdominal pain and vomiting. She denies any active substance abuse, her vital signs are currently stable. Plan for labs, urinalysis, pelvic examination. Will have low threshold for advanced imaging. Will treat the patient's pain and vomiting with morphine, Benadryl and Reglan. The patient reports that she has Zofran at home that did not help. Broad differential at this time including acute appendicitis, cyclic vomiting syndrome, gastroenteritis, PID, pyelonephritis, UTI, biliary disease Differential Diagnosis Differential Diagnoses: The differential diagnosis associated with the presentation includes Lab Data [facility] Lab Attestation statement: I reviewed the patient's lab results. No significant leukocytosis at only 10.4. Mild anemia with a hemoglobin 11.3 hematocrit 37.6. Platelet count within normal limits, electrolytes within normal limits although patient does have a carbon dioxide level that is low at 20 which may be related to hyperventilating due to pain and discomfort. Glucose elevated to 136, the patient's lactic acid was elevated 3.2 which improved with IV fluids alone. 06/22/24 16:56 06/22/24 16:56 Labs: Lab Results 06/22/24 06/22/24 06/22/24 Range/Units 16:56 19:01 20:22 WBC 10.4 (4.8-10.8) X10*3/uL RBC 4.78 (4.20-5.50) X10*6/uL Hgb 11.3 L (12.0-16.0) g/dl Hct 37.6 (37.0-47.0) % MCV 78.7 L (80.0-98.0) fL MCH 23.6 L (27.0-33.0) pg MCHC 30.1 L (31.0-35.0) g/dl RDW 17.8 H (11.0-16.0) % Plt Count 192 (160-400) X10*3/uL MPV 12.6 H (9.4-12.3) fL Immature Gran % (Auto) 0.5 H (0.0-0.4) % Neut % (Auto) 91.9 H (45-73) % Lymph % (Auto) 5.1 L (20-40) % [place] % (Auto) 2.3 (2-11) % Eos % (Auto) 0.0 (0-4) % Baso % (Auto) 0.2 (0-2) % Lymph # (Auto) 0.5 L (1.2-4.9) X10*3/uL [place] # (Auto) 0.2 (0.1-1.2) X10*3/uL Eos # (Auto) 0.0 (0.0-0.4) X10*3/uL Baso # (Auto) 0.0 (0.0-0.2) X10*3/uL Abs Immat Gran (auto) 0.05 H (0.00-0.03) X10*3/uL Absolute Neuts (auto) 9.6 H (2.0-8.3) x10*3/uL Absolute Nucleated RBC 0.000 (0.0-0.012) X10*3/uL Nucleated RBC % (auto) 0.0 (0.0-0.2) /100WBC Smear Tech's Comments VERIFIED Sodium 141 (135-145) mmol/L Potassium 3.6 (3.3-5.1) mmol/L Chloride 108 (96-108) mmol/L Carbon Dioxide 20 L (22-29) mmol/L Anion Gap 17 (12-20) BUN 10 (9-16) mg/dL Creatinine 0.82 (0.5-1.4) mg/dL Estim Creat Clear Calc 83.8 Estimated GFR > 60 Random Glucose 136 H (60-115) mg/dL Lactic Acid 3.2 H* (0.5-2.0) mmol/L Lactic Acid F/U @ 2Hr 1.7 (0.5-2.0) mmol/L Calcium 9.9 (8.4-10.2) mg/dL Magnesium 1.9 (1.6-2.6) mg/dL Total Bilirubin 0.5 (0.0-1.0) mg/dL AST 16 (5-31) U/L ALT 12 (0-31) U/L Alkaline Phosphatase 56 (39-117) U/L Total Protein 8.9 H (6.5-8.0) g/dL Albumin 4.7 (3.5-5.0) g/dL Beta HCG, Quant < 2 mIU/mL Urine Color Yellow Urine Appearance Hazy Urine pH 7.0 (5.0-9.0) Ur Specific [place] 1.015 (1.005-1.025) Urine Protein Negative (Neg-Trace) mg/dL Urine Glucose (UA) Negative (Negative) mg/dL Urine Ketones 15 (Negative) mg/dL Urine Blood Negative (Negative) Urine Nitrite Positive H (Negative) Ur Leukocyte Esterase Negative (Negative) Urine RBC 0-2 (0-2) /HPF Urine WBC 6-10 H (0-5) /HPF Ur Squamous Epith Cells 11-20 (0-2) /HPF Urine Bacteria 2+ (None Seen) Hyaline Casts 0-2 (0-2) /LPF Urine Opiates Screen POSITIVE H (Not Detect) Ur Buprenorphine Scrn Not Detected (Not Detect) ng/mL Ur Oxycodone Screen Not Detected (Not Detect) ng/mL Urine Methadone Screen Not Detected (Not Detect) ng/mL Urine Fentanyl Screen POSITIVE H (Not Detect) Ur Barbiturates Screen Not Detected (Not Detect) Ur Phencyclidine Scrn Not Detected (Not Detect) Ur Amphetamines Screen Not Detected (Not Detect) U Benzodiazepines Scrn Not Detected (Not Detect) Urine Cocaine Screen Not Detected (Not Detect) U Marijuana (THC) Screen POSITIVE H (Not Detect) Influenza Type A (PCR) NEGATIVE (Negative) Influenza Type B (PCR) NEGATIVE (Negative) RSV RNA Qual (PCR) NEGATIVE (Negative) SARS-CoV-2 RNA (RT-PCR) NEGATIVE (Negative) Discharge Plan Discharge Clinical Impression: Abdominal pain with vomiting, Acute pelvic inflammatory disease Patient Disposition: Home, Self-Care Instructions: Pelvic Inflammatory Disease (ED) Additional Instructions: Your CT scan showed a urethral diverticulum. You may follow-up with Dr. Walton regarding this. Additionally, you are being treated for pelvic inflammatory disease, take both antibiotics as prescribed Drink lots of fluids, take Motrin or Tylenol as needed for pain Follow-up with your primary doctor and return for new or worsening symptoms Prescriptions: New doxycycline hyclate 100 mg tablet 100 mg PO BID Qty: 28 0RF metronidazole 500 mg tablet 500 mg PO Q12H Qty: 28 0RF No Action ascorbic acid (vitamin C) 1,000 mg tablet 1 g PO DAILY 90 Days Qty: 90 0RF methenamine hippurate 1 gram tablet 1 tab PO DAILY ondansetron 4 mg tablet,disintegrating 4 mg PO Q8H 4 Days Qty: 12 0RF nitrofurantoin monohyd/m-cryst [Macrobid] 100 mg capsule 100 mg PO Q12H 5 Days Qty: 10 0RF Rx Instructions: must administer with a meal/food ondansetron 4 mg tablet,disintegrating 4 mg PO Q6-8H PRN (Reason: nausea and vomiting) Qty: 10 0RF Referrals: Andrey Walton MD [Physician] - (urethral diverticulum) Elton Baez MD [Physician] - (Pelvic inflammatory disease) Print Language: Portuguese
--- OUTSIDE RECORDS SUMMARY | 2024-06-22 16:38 | XMS_ITS | Continuity of Care Document ---
Author Organization [facility] ter Address [address] [place] [phone]- Care Team Providers Care Wool Washing Machine Operator Name Role Phone Farhan THOMAS, Navi Velasquez Primary Care Physician [phone] [place]counter [facility] [place](s): 04/23/22 - 04/25/[address] [address] Discharge Disposition: A-D/C Home Attending Physician: Harriet Richards MD Admitting Physician: Carin Candelario MD Referring Physician: Not on Staff, Referring MD Allergies, Adverse Reactions, Alerts Substance Reaction Severity Status amoxicillin Active Immunizations Given and Recorded Vaccine Date Status Refusal Reason SARS-CoV-2 (COVID-19) mRNA BNT-162b2 vac 09/07/21 Recorded SARS-CoV-2 (COVID-19) mRNA BNT-162b2 vac 08/02/21 Recorded influenza virus vaccine, inactivated 09/06/21 Peng rded influenza virus vaccine, inactivated 11/29/19 Peng rded influenza virus vaccine, inactivated 11/05/17 Peng rded Medications cefpodoxime 200 mg oral tablet 1 tablet = 200 mg, By Mouth, Every 12 hours, start on 04[facility]26 [facility], [facility], 0 Refills, Acute 05/02/22 21:00:00 EDT, 04/26/22 9:00:00 EDT, Tablet, [facility], Partial fill upon patient reques... Start Date: 04/26/22 Stop Date: 05/02/22 Status: Ordered Dilaudid Inj 0.5 mg, Injection, IV Push Slowly, Every 4 hours, PRN for Pain , Severe, Routine, 04/24/22 11:18:00EDT Start Date: 04/24/22 Stop Date: 04/25/22 Status: Discontinued ondansetron 4 mg oral tablet, disintegrating 1 tablet = 4 mg, By Mouth, Every 8 hours, PRN as needed for nausea/vomiting, 0 Refills, Maintenance, 04/23/22 11:01:00 EDT, DIS Tablet, Partial fill upon patient request if the prescription is for a schedule II opioid drug. Start Date: 04/23/22 Status: Ordered oxyCODONE 5 mg oral tablet 5 mg, 1, tablet, By Mouth, Every 6 hours, PRN, # 12 tablet, Refills 0, Tot. Refills 0, Acute 04/27/22 21:00:00 EDT, Pain , Severe, 04/25/22 12:37:00 EDT, Route to Pharmacy Electronically, [facility], Partial fill upon patient request if... Start Date: 04/25/22 Stop Date: 04/27/22 Status: Ordered Results Orders for Microbiology Reports Name Date Urine Culture (URINE CULTURE) 04/23/22 Blood Culture 04/23/22 Blood Culture #2 04/23/22 Microbiology Reports TEST:Urine Culture STATUS:Auth (Verified) BODY SITE: SOURCE:URINE COLLECTED DATE/TIME:04/23/22 5:40 AM Urine Culture SPECIMEN DESCRIPTION : URINE SPECIAL REQUESTS : NONE CULTURE : NO GROWTH REPORT STATUS : FINAL 04/25/2022 TEST:Blood Culture STATUS:Unauthenticated BODY SITE: SOURCE:Blood COLLECTED DATE/TIME:04/23/22 5:27 AM Blood Culture SPECIMEN DESCRIPTION : BLOOD LF HAND SPECIAL REQUESTS : NONE CULTURE : NO GROWTH AFTER 48 HOURS REPORT STATUS : PRELIMINARY REPORT TEST:Blood Culture, Second Order STATUS:Unauthenticated BODY SITE: SOURCE:Blood COLLECTED DATE/TIME:04/23/22 5:27 AM Blood Culture, Second Order SPECIMEN DESCRIPTION : BLOOD RT HAND SPECIAL REQUESTS : NONE CULTURE : NO GROWTH AFTER 48 HOURS REPORT STATUS : PRELIMINARY REPORT Vital Signs Most recent to oldest [Reference Range]: 1 2 3 Height 162 cm (04/25/22 11:42 AM) 162 cm (04/25/22 7:06 AM) 162 cm (04/25/22 4:00 AM) Weight 63.5 kg (04/23/22 2:07 PM) Oxygen Saturation [94-100 %] 100 % (04/25/22 11:42 AM) 100 % (04/25/22 7:06 AM) 100 % (04/25/22 4:00 AM) Pulse Rate [55-90 bpm] 62 bpm (04/25/22 11:42 AM) 68 bpm (04/25/22 7:06 AM) 64 bpm (04/25/22 4:00 AM) Body Mass Index [18.5-24.99] 24.2 (04/23/22 2:07 PM) Blood Pressure [90-138/55-84 mm Hg] 145/59mm Hg *H* (04/25/22 11:42 AM) 120/68mm Hg (04/25/22 7:06 AM) 154/91mm Hg *H* (04/25/22 4:00 AM) Respiratory Rate [16-30 br/min] 18 br/min (04/25/22 11:42 AM) 18 br/min (04/25/22 8:24 AM) 18 br/min (04/25/22 7:06 AM) Temperature [96.8-100.4 DegF] 97.8 DegF (04/25/22 11:42 AM) 98.5 DegF (04/25/22 7:06 AM) 98.8 DegF (04/25/22 4:00 AM) Mode of Delivery (Oxygen) Room air (04/25/22 11:42 AM) Room air (04/25/22 7:06 AM) Room air (04/25/22 4:00 AM) Blood pressure sites Arm, right (04/25/22 11:42 AM) Arm, right (04/25/22 7:06 AM) Arm, right (04/25/22 4:00 AM) Temperature Route Oral (04/25/22 11:42 AM) Oral (04/25/22 7:06 AM) Oral (04/25/22 4:00 AM) Dry Weight 63.5 kg (04/23/22 2:07 PM) Weight Obtained Via Patient/family state d (04/23/22 2:07 PM)
--- OUTSIDE RECORDS SUMMARY | 2024-06-22 16:38 | XMS_ITS | Continuity of Care Document ---
Author Organization [facility] ter Address [address] [place] [id number]- Care Team Providers Care Food And Drug Inspector Name Role Phone Not on Staff, PCP Primary Care Physician Unavail able Encounter [facility] [place] Date(s): 01/31/22 - 01/31/[address] [address]- Encounter Diagnosis Flank pain(Final) - 01/31/22 Discharge Disposition: A-D/C Home Attending Physician: Naty Barboza MD Admitting Physician: Naty Barboza MD Referring Physician: Not on Staff, Referring MD Allergies, Adverse Reactions, Alerts Substance Reaction Severity Status amoxicillin Active Medications cephalexin monohydrate 500 mg oral capsule 1 capsule = 500 mg, By Mouth, 4 times a day, for 7 days, # 28 capsule, 0 Refills, Acute 02/07/22 18:54:00 EDT, 01/31/22 18:54:00 EDT, Capsule, [id number], Partial fill upon patient request ifthe prescription is for a schedule II opioid drug. Start Date: 01/31/22 Stop Date: 02/07/22 Status: Ordered MorPHINE Inj 4 mg, Injection, IV Push Slowly, Every 5 minutes for 3 doses/times, PRN for Pain , Moderate, and SBP greater than 100, Routine, 01/31/22 12:26:00 EDT, Stop date Limited # of times Start Date: 01/31/22 Stop Date: 01/31/22 Status: Completed oxyCODONE 5 mg oral tablet 5 mg, 1, tablet, By Mouth, Every 6 hours, PRN, for 3 days, # 12 tablet, Refills 0, Tot. Refills 0, Acute 02/03/22 18:53:00 EDT, as needed for pain, 01/31/22 18:53:00 EDT, Route to Pharmacy Electronically, [id number], Partial fill upon patient... Start Date: 01/31/22 Stop Date: 02/03/22 Status: Ordered traZODone 100 mg oral tablet 100 mg, 1, tablet, By Mouth, Daily at bedtime, Refills 0, Maintenance, 03/26/18 22:30:04 EDT Start Date: 03/26/18 Status: Ordered Zoloft 100 mg oral tablet 1 tablet = 100 mg, By Mouth, Daily at bedtime, # 30 tablet, 0 Refills, Maintenance, 03/26/18 22:30:15 EDT, Tablet Start Date: 03/26/18 Status: Ordered Vital Signs Most recent to oldest [Reference Range]: 1 2 3 Oxygen Saturation [94-100 %] 98 % (01/31/22 7:36 PM) 99 % (01/31/22 5:27 PM) 100 % (01/31/22 2:38 PM) Pulse Rate [55-90 bpm] 79 bpm (01/31/22 7:36 PM) 80 bpm (01/31/22 5:27 PM) 81 bpm (01/31/22 2:38 PM) Blood Pressure [90-138/55-84 mm Hg] 138/76mm Hg (01/31/22 7:36 PM) 134/89mm Hg (01/31/22 5:27 PM) 132/80mm Hg (01/31/22 2:38 PM) Respiratory Rate [16-30 br/min] 20 br/min (01/31/22 7:36 PM) 20 br/min (01/31/22 5:31 PM) 23 br/min (01/31/22 5:27 PM) Temperature [96.8-100.4 DegF] 99.1 DegF (01/31/22 5:27 PM) 98.6 DegF (01/31/22 12:11 PM) Liters per Minute 0 L/min (01/31/22 5:27 PM) Mode of Delivery (Oxygen) Room air (01/31/22 7:36 PM) Room air (01/31/22 5:27 PM) Room air (01/31/22 2:38 PM) Blood pressure sites Arm, left (01/31/22 5:27 PM) Arm, left (01/31/22 2:38 PM) Arm, right (01/31/22 12:11 PM) Temperature Route Oral (01/31/22 5:27 PM) Oral (01/31/22 12:11 PM)
--- OUTSIDE RECORDS SUMMARY | 2024-06-22 16:38 | XMS_ITS | Continuity of Care Document ---
Author Organization [facility] ter Address [address] [place] [id number]- Care Team Providers Care Ammonia Worker Name Role Phone Farhan THOMAS, Navi Velasquez Primary Care Physician [phone] [facility] [place] Date(s): 05/03/22 - 05/05/[address] [address]- Encounter Diagnosis Abdominal pain(Final) - 05/03/22 Discharge Disposition: A-D/C AMA Attending Physician: Benjamin THOMAS, Noreen Klein Admitting Physician: Antonio Khan DO Referring Physician: Not on Staff, Referring MD [...] 200 mg, By Mouth, Every 12 hours, # 14 tablet, 0 Refills, Maintenance, 05/03/22 20:49:00EDT, Tablet, Partial fill upon patient request if the prescription is for a schedule II opioid drug. Start Date: 05/03/22 Stop Date: 05/10/22 Status: Ordered Dilaudid Inj 0.5 mg, Injection, IV Push Slowly, Once, PRN for Pain , Severe, ARNAV, 05/05/22 5:46:00 EDT Start Date: 05/05/22 Stop Date: 05/05/22 Status: Completed ondansetron 4 mg oral tablet, disintegrating 1 tablet = 4 mg, By Mouth, Every 8 hours, PRN as needed for nausea/vomiting, 0 Refills, Maintenance, 04/23/22 11:01:00 EDT, DIS Tablet, Partial fill upon patient request if the prescription is for a schedule II opioid drug. Start Date: 04/23/22 Status: Ordered Procedures Procedure Date Related Diagnosis Body Site Status Tubal ligation Completed Results Orders for Microbiology Reports Name Date Urine Culture (URINE CULTURE) 05/04/22 Blood Culture 05/03/22 Blood Culture #2 05/03/22 Microbiology Reports TEST:Urine Culture STATUS:Unauthenticated BODY SITE: SOURCE:URINE COLLECTED DATE/TIME:05/04/22 1:45 AM Urine Culture SPECIMEN DESCRIPTION : URINE SPECIAL REQUESTS : NONE CULTURE : >100,000 COL/ML ENTEROCOCCUS FAECALIS This isolate was identified using Maldi-TOF system REPORT STATUS : PRELIMINARY REPORT TEST:Blood Culture STATUS:Unauthenticated BODY SITE: SOURCE:Blood COLLECTED DATE/TIME:05/03/22 4:30 PM Blood Culture SPECIMEN DESCRIPTION : BLOOD SPECIAL REQUESTS : NONE CULTURE : NO GROWTH AFTER 48 HOURS REPORT STATUS : PRELIMINARY REPORT TEST:Blood Culture, Second Order STATUS:Unauthenticated BODY SITE: SOURCE:Blood COLLECTED DATE/TIME:05/03/22 4:30 PM Blood Culture, Second Order SPECIMEN DESCRIPTION : BLOOD SPECIAL REQUESTS : NONE CULTURE : NO GROWTH AFTER 48 HOURS REPORT STATUS : PRELIMINARY REPORT Vital Signs Most recent to oldest [Reference Range]: 1 2 3 Height 163 cm (05/05/22 7:43 AM) 163 cm (05/05/22 3:57 AM) 163 cm (05/04/22 11:32 PM) Weight 64 kg (05/04/22 2:30 PM) 64 kg (05/03/22 9:04 PM) 64 kg (05/03/22 7:08 PM) Oxygen Saturation [94-100 %] 100 % (05/05/22 7:43 AM) 100 % (05/05/22 3:57 AM) 100 % (05/04/22 11:32 PM) Pulse Rate [55-90 bpm] 70 bpm (05/05/22 7:43 AM) 67 bpm (05/05/22 3:57 AM) 67 bpm (05/04/22 11:32 PM) Body Mass Index [18.5-24.99] 24.09 (05/04/22 2:30 PM) 24.09 (05/03/22 9:04 PM) 24.09 (05/03/22 7:08 PM) Blood Pressure [90-138/55-84 mm Hg] 130/89mm Hg (05/05/22 7:43 AM) 119/82mm Hg (05/05/22 3:57 AM) 128/82mm Hg (05/04/22 11:32 PM) Respiratory Rate [16-30 br/min] 17 br/min (05/05/22 7:43 AM) 18 br/min (05/05/22 5:53 AM) 16 br/min (05/05/22 3:57 AM) Temperature [96.8-100.4 DegF] 98.1 DegF (05/05/22 7:43 AM) 98.1 DegF (05/05/22 3:57 AM) 98.7 DegF (05/04/22 11:32 PM) Mode of Delivery (Oxygen) Room air (05/05/22 7:43 AM) Room air (05/05/22 3:57 AM) Room air (05/04/22 11:32 PM) Blood pressure sites Arm, left (05/05/22 3:57 AM) Arm, right (05/04/22 11:32 PM) Arm, right (05/04/22 8:52 PM) Temperature Route Oral (05/05/22 7:43 AM) Oral (05/05/22 3:57 AM) Oral (05/04/22 11:32 PM) Dry Weight 64 kg (05/04/22 2:30 PM) 64 kg (05/03/22 9:04 PM) 64 kg (05/03/22 7:08 PM) Social History Social History Type Response Smoking Status Use: 4 or less cigar ettes(less than 1/4 pack)/day in last 30 days;5-9 cigarettes (between 1/4 to 1/2 pack)/day in last 30 days entered on: 05/03/22 Sex
--- OUTSIDE RECORDS SUMMARY | 2024-06-22 16:38 | XMS_ITS | Continuity of Care Document ---
Author Organization [facility] ter Address [address] [place] [id number]- Care Team Providers Care Agronomist Name Role Phone Navi Real MD Primary Care Physician [phone] [place] [facility] [place](s): 09/04/21 - 09/05/[address] [address]- Encounter Diagnosis Abdominal pain(Final) - 09/05/21 Discharge Disposition: A-D/C Home Attending Physician: Juma Schafer MD Admitting Physician: Juma Schafer MD Referring Physician: Not on Staff, Referring MD Allergies, Adverse Reactions, Alerts Substance Reaction Severity Status amoxicillin Active Medications Dilaudid Inj 0.5 mg, Injection, IV Push Slowly, Every 15 minutes for 3 doses/times, PRN for Pain , Moderate, andSBP greater than 100, STAT, 09/04/21 21:02:00 EDT, Stop date Limited # of times Start Date: 09/04/21 Stop Date: 09/05/21 Status: Discontinued traZODone 100 mg oral tablet 100 mg, 1, tablet, By Mouth, Daily at bedtime, Refills 0, Maintenance, 03/26/18 22:30:04 EDT Start Date: 03/26/18 Status: Ordered Zoloft 100 mg oral tablet 1 tablet = 100 mg, By Mouth, Daily at bedtime, # 30 tablet, 0 Refills, Maintenance, 03/26/18 22:30:15 EDT, Tablet Start Date: 03/26/18 Status: Ordered Results Orders for Microbiology Reports Name Date Wet Prep 09/04/21 Microbiology Reports TEST:Wet Prep STATUS:Auth (Verified) BODY SITE: SOURCE:VAGINA COLLECTED DATE/TIME:09/04/21 11:20 PM Wet Prep SPECIMEN DESCRIPTION : VAGINAL SPECIMEN SPECIAL REQUESTS : NONE DIRECT EXAM : SPECIMEN RECEIVED ON DRY SWAB. UNABLE TO ANALYZE FOR TRICHOMONADS. PLEASE SUBMIT SWAB IN STERILE TUBE CONTAINING 1 ML STERILE SALINE. 1+ CLUE CELLS NO YEAST OBSERVED REPORT STATUS : FINAL 09/05/2021 Vital Signs Most recent to oldest [Reference Range]: 1 2 3 Oxygen Saturation [94-100 %] 100 % (09/05/21 2:55 AM) 100 % (09/04/21 11:30 PM) 100 % (09/04/21 6:55 PM) Pulse Rate [55-90 bpm] 74 bpm (09/05/21 2:55 AM) 79 bpm (09/04/21 11:30 PM) 85 bpm (09/04/21 6:55 PM) Blood Pressure [90-138/55-84 mm Hg] 112/76mm Hg (09/05/21 2:55 AM) 117/79mm Hg (09/04/21 11:30 PM) 170/84mm Hg *H* (09/04/21 6:55 PM) Respiratory Rate [16-30 br/min] 17 br/min (09/05/21 2:55 AM) 19 br/min (09/05/21 12:24 AM) 15 br/min *L* (09/04/21 11:30 PM) Temperature [96.8-100.4 DegF] 98.8 DegF (09/05/21 2:55 AM) 99.1 DegF (09/04/21 6:55 PM) 97.8 DegF (09/04/21 2:06 PM) Mode of Delivery (Oxygen) Room air (09/05/21 2:55 AM) Room air (09/04/21 11:30 PM) Room air (09/04/21 6:55 PM) Blood pressure sites Arm, right (09/05/21 2:55 AM) Arm, right (09/04/21 11:30 PM) Arm, right (09/04/21 6:55 PM) Temperature Route Oral (09/05/21 2:55 AM) Oral (09/04/21 6:55 PM) Oral (09/04/21 2:06 PM)
--- OUTSIDE RECORDS SUMMARY | 2024-06-22 16:38 | XMS_ITS | Continuity of Care Document ---
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 Date(s): 09/17/22 - 09/19/[address] [address]- Encounter Diagnosis Abdominal pain(Final) - 09/17/22 Discharge Disposition: A-D/C Home Attending Physician: Benjamin THOMAS, Noreen Klein Admitting Physician: Betsy Mack MD Referring Physician: Not on Staff, Referring MD Allergies, Adverse Reactions, Alerts Substance Reaction Severity Status amoxicillin Active traMADol MARION - Difficulty in breathing Active Immunizations Given and Recorded Vaccine Date Status Refusal Reason influenza virus vaccine, inactivated 09/19/22 Give n influenza virus vaccine, inactivated 09/06/21 Peng rded influenza virus vaccine, inactivated 11/29/19 Peng rded influenza virus vaccine, inactivated 11/05/17 Peng rded SARS-CoV-2 (COVID-19) mRNA BNT-162b2 vac 09/07/21 Recorded SARS-CoV-2 (COVID-19) mRNA BNT-162b2 vac 08/02/21 Recorded Medications methenamine hippurate 1 gm oral tablet 1 tablet = 1 Gm, By Mouth, 2 times a day, 0 Refills, Maintenance, 06/19/22 16:59:00 EDT, Partial fill upon patient request if the prescription is for a schedule II opioid drug. Start Date: 06/19/22 Status: Ordered metroNIDAZOLE 500 mg oral tablet 1 tablet = 500 mg, By Mouth, 2 times a day, for 6 days, # 12 tablet, 0 Refills, Acute 09/25/22 8:25:00 EST, 09/19/22 8:25:00 EST, Tablet, [facility], Partial fill upon patient request if the prescription is for a schedule II opioid drug.... Start Date: 09/19/22 Stop Date: 09/25/22 Status: Ordered MorPHINE Inj 2 mg, Injection, IV Push Slowly, Every 4 hours, PRN for Pain , Moderate, Routine, 09/18/22 0:32:00 EST Start Date: 09/18/22 Stop Date: 09/19/22 Status: Discontinued nitrofurantoin macrocrystals By Mouth, 4 times a day, Maintenance, Take on capsule ever and Saturday before bedtime., 06/19/22 17:00:00 EDT Start Date: 06/19/22 Status: Ordered Results Orders for Microbiology Reports Name Date Wet Prep 09/17/22 Urine Culture (URINE CULTURE) 09/17/22 Blood Culture 09/17/22 Blood Culture #2 09/17/22 Microbiology Reports TEST:Wet Prep STATUS:Auth (Verified) BODY SITE: SOURCE:VAGINA COLLECTED DATE/TIME:09/17/22 6:58 PM Wet Prep SPECIMEN DESCRIPTION : VAGINAL SPECIMEN SPECIAL REQUESTS : NONE DIRECT EXAM : 2+ TRICHOMONAS 3+ WHITE BLOOD CELLS NO YEAST OBSERVED NO CLUE CELLS OBSERVED REPORT STATUS : FINAL 09/17/2022 TEST:Blood Culture, Second Order STATUS:Unauthenticated BODY SITE: SOURCE:Blood COLLECTED DATE/TIME:09/17/22 5:30 PM Blood Culture, Second Order SPECIMEN DESCRIPTION : BLOOD SPECIAL REQUESTS : NONE CULTURE : NO GROWTH AFTER 48 HOURS REPORT STATUS : PRELIMINARY REPORT TEST:Urine Culture STATUS:Auth (Verified) BODY SITE: SOURCE:URINE COLLECTED DATE/TIME:09/17/22 4:40 PM Urine Culture SPECIMEN DESCRIPTION : URINE SPECIAL REQUESTS : NONE CULTURE : <10,000 COL/ML REPORT STATUS : FINAL 09/19/2022 TEST:Blood Culture STATUS:Unauthenticated BODY SITE: SOURCE:Blood COLLECTED DATE/TIME:09/17/22 11:57 AM Blood Culture SPECIMEN DESCRIPTION : BLOOD NO SITE SPECIAL REQUESTS : NONE CULTURE : NO GROWTH AFTER 48 HOURS REPORT STATUS : PRELIMINARY REPORT Radiology Reports * Exam Date Time Procedure Performing Provider Status 09/17/22 8:15 PM US Pelvic Transabdominal Yane Parish; Auth (Verified) Notes: (US Pelvic Transabdominal) Reason For Exam: Pelvic Pain;Other: RESULT: US Pelvic Transabdominal US Pelvic Transvaginal, US Pelvic Doppler Comp, US Pelvic Transabdominal History of Present Illness: Right lower quadrant pain.? pyelonephritis recent UTI not resolved. Reason: Pelvic Pain. Clinical Question(s): Torsion. COMPARISON: Pelvic ultrasound 05/04/2022, CT abdomen pelvis with IV contrast 09/17/2022, CT abdomen and pelvis without contrast 05/29/2022. TECHNIQUE: Transabdominal and transvaginal pelvic ultrasound with grayscale, color Doppler, and spectral Doppler analysis. FINDINGS: UTERUS: Size: 9.3 x 4.4 x 5.4 cm, volume 116.7 cc. Endometrial thickness: 1.0 cm. Morphology: Normal configuration and echotexture. There are a few subcentimeter nabothian cysts in the cervix. RIGHT OVARY: Size: 3.3 x 2.5 x 2.6 cm, volume 11.0 cc. Morphology: Normal echotexture. 2.2 x 1.3 x 1.9 cm well-circumscribed anechoic lesion with posterior acoustic enhancement abutting the right ovary, likely a paraovarian simple cyst. No pathologic mass. Normal arterial and venous waveforms. LEFT OVARY: Size: 3.1 x 2.1 x 2.7 cm, volume 9.1 cc. Morphology: Normal echotexture. No pathologic cysts or mass. Normal arterial and venous waveforms. ADNEXA: Normal. No adnexal masses or fluid collections. IMPRESSION: No evidence of ovarian torsion. A 2.2 cm right paraovarian simple cyst without suspicious features. No routine follow-up is needed. I have personally reviewed the images and I agree with this report. WSN: [id number] Ordering Physician: Ajti Hardy Dictated By: Dylon Francis MD Dictated Date/Time: 09/17/22 8:34 pm Reviewed By: Edna Teran MD Signed By: Edna Teran MD Signed Date/Time: 09/17/22 8:39 pm Transcribed By: FABI Transcribed Date/Time: 09/17/22 8:28 pm * Exam Date Time Procedure Performing Provider Status 09/17/22 8:15 PM US Pelvic Doppler Comp Yane Parish; Rosa Maria ut (Verified) Notes: (US Pelvic Doppler Comp) Reason For Exam: Pelvic Pain;Other: RESULT: US Pelvic Doppler Comp US Pelvic Transvaginal, US Pelvic Doppler Comp, US Pelvic Transabdominal History of Present Illness: Right lower quadrant pain.? pyelonephritis recent UTI not resolved. Reason: Pelvic Pain. Clinical Question(s): Torsion. COMPARISON: Pelvic ultrasound 05/04/2022, CT abdomen pelvis with IV contrast 09/17/2022, CT abdomen and pelvis without contrast 05/29/2022. TECHNIQUE: Transabdominal and transvaginal pelvic ultrasound with grayscale, color Doppler, and spectral Doppler analysis. FINDINGS: UTERUS: Size: 9.3 x 4.4 x 5.4 cm, volume 116.7 cc. Endometrial thickness: 1.0 cm. Morphology: Normal configuration and echotexture. There are a few subcentimeter nabothian cysts in the cervix. RIGHT OVARY: Size: 3.3 x 2.5 x 2.6 cm, volume 11.0 cc. Morphology: Normal echotexture. 2.2 x 1.3 x 1.9 cm well-circumscribed anechoic lesion with posterior acoustic enhancement abutting the right ovary, likely a paraovarian simple cyst. No pathologic mass. Normal arterial and venous waveforms. LEFT OVARY: Size: 3.1 x 2.1 x 2.7 cm, volume 9.1 cc. Morphology: Normal echotexture. No pathologic cysts or mass. Normal arterial and venous waveforms. ADNEXA: Normal. No adnexal masses or fluid collections. IMPRESSION: No evidence of ovarian torsion. A 2.2 cm right paraovarian simple cyst without suspicious features. No routine follow-up is needed. I have personally reviewed the images and I agree with this report. WSN: [id number] Ordering Physician: Ajit Hardy Dictated By: Dylon Francis MD Dictated Date/Time: 09/17/22 8:34 pm Reviewed By: Edna Teran MD Signed By: Edna Teran MD Signed Date/Time: 09/17/22 8:39 pm Transcribed By: FABI Transcribed Date/Time: 09/17/22 8:28 pm * Exam Date Time Procedure Performing Provider Status 09/17/22 8:15 PM US Pelvic Transvaginal Marnie Parish uth (Verified) Notes: (US Pelvic Transvaginal) Reason For Exam: Pelvic Pain;Other: RESULT: US Pelvic Transvaginal US Pelvic Transvaginal, US Pelvic Doppler Comp, US Pelvic Transabdominal History of Present Illness: Right lower quadrant pain.? pyelonephritis recent UTI not resolved. Reason: Pelvic Pain. Clinical Question(s): Torsion. COMPARISON: Pelvic ultrasound 05/04/2022, CT abdomen pelvis with IV contrast 09/17/2022, CT abdomen and pelvis without contrast 05/29/2022. TECHNIQUE: Transabdominal and transvaginal pelvic ultrasound with grayscale, color Doppler, and spectral Doppler analysis. FINDINGS: UTERUS: Size: 9.3 x 4.4 x 5.4 cm, volume 116.7 cc. Endometrial thickness: 1.0 cm. Morphology: Normal configuration and echotexture. There are a few subcentimeter nabothian cysts in the cervix. RIGHT OVARY: Size: 3.3 x 2.5 x 2.6 cm, volume 11.0 cc. Morphology: Normal echotexture. 2.2 x 1.3 x 1.9 cm well-circumscribed anechoic lesion with posterior acoustic enhancement abutting the right ovary, likely a paraovarian simple cyst. No pathologic mass. Normal arterial and venous waveforms. LEFT OVARY: Size: 3.1 x 2.1 x 2.7 cm, volume 9.1 cc. Morphology: Normal echotexture. No pathologic cysts or mass. Normal arterial and venous waveforms. ADNEXA: Normal. No adnexal masses or fluid collections. IMPRESSION: No evidence of ovarian torsion. A 2.2 cm right paraovarian simple cyst without suspicious features. No routine follow-up is needed. I have personally reviewed the images and I agree with this report. WSN: [id number] Ordering Physician: Ajit Hardy Dictated By: Dylon Francis MD Dictated Date/Time: 09/17/22 8:34 pm Reviewed By: Edna Teran MD Signed By: Edna Teran MD Signed Date/Time: 09/17/22 8:39 pm Transcribed By: FABI Transcribed Date/Time: 09/17/22 8:28 pm * Exam Date Time Procedure Performing Provider Status 09/17/22 2:[address] Abd/Pelvis W/ IV Contrast Only Jaja Rodriguez; Auth (Verified) Notes: (CT Abd/Pelvis W/ IV Contrast Only) Reason For Exam: RLQ abdominal pain;Other: RESULT: CT Abd/Pelvis W/ IV Contrast Only CT Abd/Pelvis W/ IV Contrast Only Hx of Present Illness: ? Pyelonephritis recent UTI not resolved; Reason: Other:; RLQ abdominal pain; Clinical Question(s): Calculus; appendix; Order Comment: TECHNIQUE: Spiral CT through the abdomen and pelvis with IV contrast formatted in 3 planes. 100 cc of Omnipaque 350 was administered intravenously. This study was performed without oral contrast. Weight-based protocol using automatic tube modulation was used to optimize exposure parameters. CTDIvol Body: 14.00 mGy, DLP Body: 745 mGy*cm. COMPARISON: 05/29/2022. FINDINGS: Television Anchor View Findings, Lines and Tubes: None. Visualized Chest: Lung bases are clear. No pleural effusion. The heart is normal in size. No pericardial effusion. Diaphragm: Normal. Liver: Normal. Gallbladder: No CT evidence of gallbladder pathology. Bile ducts: No biliary ductal dilation. Spleen: Normal. Pancreas: Normal. Adrenal glands: Normal. Kidneys and ureters: No hydronephrosis, stones, or suspicious masses. A 3 mm area of low-attenuation is seen in the upper pole of left kidney posteriorly which is too small to be characterized. No abnormal enhancement. The ureters are normal in calibers. Bladder: Normal. Reproductive organs: The uterus is normal for age. It contains a small amount fluid in the endometrial cavity. Bilateral adnexa have small lobulated ovoid cysts. Please correlate patent with pelvic ultrasound if clinically necessary. Stomach, small bowel, and large bowel: Stomach is distended by fluid but otherwise unremarkable. The evaluation of the bowel loops is limited due to lack of oral contrast. A few dilated small bowel loops are seen involving the jejunum which is nonspecific. No definite obstruction. The ileum is normal in caliber. No diverticulosis of the colon. Appendix: Normal. Peritoneum and retroperitoneum: No ascites or pneumoperitoneum. No omental or mesenteric lesions. Lymph nodes: No enlarged lymph nodes. Blood vessels: Mild vascular calcifications but no aneurysm. No evidence of venous thrombosis. Abdominal and pelvic wall: Unremarkable. Bones: No acute abnormality. IMPRESSION: No acute pathology seen in the abdomen and pelvis. No renal calculi or obstruction of collecting system. There is no evidence of pyelonephritis. Bilateral adnexa have small lobulated ovoid cysts. Please correlate patent with pelvic ultrasound if clinically necessary. WSN: [id number] Ordering Physician: Jamie Bryant Dictated By: Louie Vázquez MD Dictated Date/Time: 09/17/22 4:11 pm Reviewed By: Louie Vázquez MD Signed By: Louie Vázquez MD Signed Date/Time: 09/17/22 4:11 pm Transcribed By: FABI Transcribed Date/Time: 09/17/22 4:10 pm Vital Signs Most recent to oldest [Reference Range]: 1 2 3 Height 163 cm (09/19/22 7:41 AM) 163 cm (09/19/22 4:32 AM) 163 cm (09/18/22 11:38 PM) Weight 68.4 kg (09/18/22 12:18 AM) 68.4 kg (09/18/22 12:08 AM) 73 kg (09/17/22 11:41 AM) Oxygen Saturation [94-100 %] 100 % (09/19/22 7:41 AM) 67 % *L* (09/19/22 4:32 AM) 99 % (09/18/22 11:38 PM) Pulse Rate [55-90 bpm] 78 bpm (09/19/22 7:41 AM) 67 bpm (09/19/22 4:32 AM) 74 bpm (09/18/22 11:38 PM) Body Mass Index [18.5-24.99 kg/m2] 25.74 kg/m2 *H* (09/18/22 12:08 AM) 27.48 kg/m2 *H* (09/17/22 10:25 AM) 27.48 kg/m2 *H* (09/17/22 10:16 AM) Blood Pressure [90-138/55-84 mm Hg] 139/77mm Hg *H* (09/19/22 7:41 AM) 135/77mm Hg (09/19/22 4:32 AM) 144/90mm Hg *H* (09/18/22 11:38 PM) Respiratory Rate [16-30 br/min] 18 br/min (09/19/22 9:05 AM) 17 br/min (09/19/22 7:41 AM) 18 br/min (09/19/22 5:43 AM) Temperature [96.8-100.4 DegF] 98.5 DegF (09/19/22 7:41 AM) 98.2 DegF (09/19/22 4:32 AM) 98.2 DegF (09/18/22 11:38 PM) Mode of Delivery (Oxygen) Room air (09/19/22 7:41 AM) Room air (09/19/22 4:32 AM) Room air (09/18/22 11:38 PM) Blood pressure sites Arm, left (09/19/22 7:41 AM) Arm, left (09/19/22 4:32 AM) Arm, left (09/18/22 11:38 PM) Temperature Route Oral (09/19/22 7:41 AM) Oral (09/19/22 4:32 AM) Oral (09/18/22 11:38 PM) Dry Weight 68.4 kg (09/18/22 12:08 AM) 73 kg (09/17/22 11:41 AM) 73 kg (09/17/22 10:25 AM) Weight Obtained Via Patient/family state d (09/17/22 10:16 AM) Dry Weight Obtained Via Patient/family s tated (09/17/22 10:16 AM) Social History Social History Type Response Smoking Status Use: 4 or less cigar ettes(less than 1/4 pack)/day in last 30 days;5-9 cigarettes (between 1/4 to 1/2 pack)/day in last 30 days entered on: 05/03/22 Sex Admission evaluation note * Shelia Tellez MD: PERFORM Event Display: Admission Note Authored Date: Patient: ??ANGELITA MELÉNDEZ ? Age:??42 Years?Sex:??Female?:??1980?? Chief Complaint/Reason for Consultation nauea vomit chills, chronic utis just completed antx for it. now has above symptoms. pt alert active vomit History of Present Illness 42-year-old female patient with history of recurrent UTIs, hemorrhagic cystitis and hypothyroidism???not on thyroid replacement at this time presented to the ER with right lower quadrant abdominal pain that began 24 hours prior to arrival with accompanying chills diaphoresis nausea and vomiting.?? Patient did not check her temperature at home due to not having access to a thermometer.?? She completed a course of ciprofloxacin about 5 days ago.?? She follows with urology outpatient.?? UTI frequency has been increasing.?? She does report flank pain on the right side along with right lower quadrant abdominal pain.?? Patient denies any hematemesis but did have multiple episodes of vomiting.?? Denies any diarrhea or hematochezia.?? Denies any cardiac, respiratory, or neurological complaints.??Does report urinary frequency and pressure when she urinates.?? She appears comfortable during my interview.?? She had just received Dilaudid for pain control.?? She is alert awake and oriented x4.??Wants to be full code ?? On review of vitals, noted to be afebrile, initially her blood pressure was uncontrolled???most likely secondary to pain, no normotensive, heart rate is now in 80s, saturation of 100% on room air.?? On review of labs, initially found to have lactate of 3.3 which trended down to 1.5, sodium 142, potassium 4.0, bicarb 21, anion gap 15, glucose 139, albumin 5.0, normal LFTs, wet prep showing trich omonas.?? Urinalysis showed pH of 8.5 with trace albumin, trace ketones, trace hemoglobin, trace leukocyte esterase, 6 WBCs, bacteria slight and blood test was negative.?? On review of CBC,found a white count of 12.4 with 95.5% neutrophils, hemoglobin 11.6, platelets 283..On CT abdomen pelvis with IV contrast noted to have acute pathology bilateral adnexa had a small lobulated ovoid cyst.?? No evidence of pyelonephritis.?? Patient subsequently underwent ultrasound of the pelvis with Doppler and did not have any evidence of ovarian torsion.?? 2.2 cm right paraovarian simple cyst without suspicious features was noted. Review of Systems General ROS:??Positive for chills and diaphoresis, positive for fatigue, no night sweats, no unexpained weight loss or weight gain Psychological ROS:negative for anxiety or depressive symptoms, no suicidal thoughts, appropriate insight into situation, mood appears appropriate for situation ENT ROS:??negative for nasal congestion, no sinus drainage, no nosebleeding, no sore throat, no dysphagia, no ear pain Hematological and Lymphatic ROS:??negative for bleeding problems, no history of blood clots, no recent increase in bruising, no noted swollen lymph nodes Endocrine ROS:??negative for polyuria/polydipsia?? Respiratory ROS:??negative for cough, no shortness of breath, no wheezing Cardiovascular ROS:??no chest pain, ??No dyspnea on exertion, ??No edema, no palpitations, no history of loss of consciousness, no orthopnea, no paroxysmal nocturnal dyspnea?? Gastrointestinal ROS:??negative for reflux, positive for right flank pain and right lower quadrant abdominal pain,??positive for nausea and vomiting, no black or bloody stools- also no history of constipation, diarrhea, heartburn or hematemesis Genito-Urinary ROS:??Positive for urinary frequency and dysuria, no trouble voiding, or hematuria Musculoskeletal ROS:??negative for worsening ongoing back pain, no worsening or chronic neck pain, no new or worsening joint pain, no calf swelling Neurological ROS:??no symptoms of confusion, no dizziness, no gait disturbance, no impaired coordination/balance, no memory loss, no history of seizures, no history of speech problems, no tremors , no visual changes. Objective Measurements?? Height: 163 cm (09/17/22) Weight: 73 kg (09/17/22) Dry Weight: 73 kg (09/17/22) Body Mass Index:??27.48 kg/m2??High (09/17/22) ? Vital Signs?? Temperature: 98.8 DegF (09/17/22 20:55:00) Temperature Route: Oral (09/17/22 20:55:00) Pulse Rate: 88 bpm (09/17/22 20:55:00) Respiratory Rate: 18 br/min (09/17/22 21:48:00) Systolic Blood Pressure: 124 mm Hg (09/17/22 20:55:00) Diastolic Blood Pressure: 81 mm Hg (09/17/22 20:55:00) Blood pressure sites: Arm, left (09/17/22 20:55:00) Mean Arterial Pressure: 115 mm Hg (09/17/22 10:16:00) Pulse Pressure: 56 mm Hg (09/17/22 12:39:00) Oxygen Saturation: 100 % (09/17/22 20:55:00) Mode of Delivery (Oxygen): Room air (09/17/22 20:55:00) Early Warning Score: 0 (09/17/22 23:48:37) ? Pain Scores 1 - 10 Pain Scale Score: 10 (11:41) ? Intake/Output? No Data Available ? Edgard Coma Scale Edgard Coma Score: 15 (09/17/22 11:41:00) Motor Response-Adult: Obeys commands (09/17/22 11:41:00) Response Eye Opening: Spontaneously (09/17/22 11:41:00) Verbal Response-Adult: Oriented and converses (09/17/22 11:41:00) ? Basic ADLs Ambulatory devices needed: None (09/17/22) ? Physical Exam ?? General appearance- alert, cooperative, no distress, appears stated age, oriented to time, place and person, Head- Normocephalic, without obvious abnormality, atraumatic Eyes-conjunctivae/corneas clear. PERRL, EOM's intact. Nose- Nares normal. Septum midline. Mucosa normal. No drainage or sinus tenderness. Throat-Lips, mucosa, and tongue dry Neck- supple, symmetrical, trachea midline, no adenopathy, thyroid: not enlarged, symmetric, no tenderness/mass/nodules, no carotid bruit and no JVD Back- symmetric, no curvature. ROM normal. ??Positive for right CVA tenderness Lungs-??clear to auscultation bilaterally Chest wall- no tenderness, no skin rash or lesions or bruising, no crepitance Heart- regular rate and rhythm, S1, S2 normal, no click, rub or gallop Abdomen-??soft, positive for right flank and right lower quadrant tenderness without any rebound orguarding or peritoneal signs, bowel sounds normal. No masses,?? No organomegaly Extremities- extremities normal, atraumatic, no cyanosis or edema, warm and well perfused. Muscle tone is normal and equal bilaterally Pulses- 2+ and symmetric on dorsal pedal pulses, posterior tibial pulses, radial pulses Skin- Skin color, texture, turgor normal. No rashes or lesions Lymph nodes- Cervical, supraclavicular, and axillary nodes do not feel enlarged on exam Neurologic- Normal, nonfocal, no focal weakness, ? Assessment/Plan ?? Right lower quadrant abdominal pain/recurrent UTIs/trichomoniasis/right ovarian simple cyst CT abdomen pelvis with contrast??and??ultrasound pelvis with Doppler were obtained in the ER Patient was started on Rocephin, will continue Rocephin Add Flagyl Blood cultures were ordered Await urine culture Tailor antibiotics based on culture result Lactic acidosis resolved Outpatient [facility] and urology follow-up Pain control with as needed meds Diet as tolerated IV fluids ?? Hypothyroidism Not on any meds ?? Diet???regular ?? DVT prophylaxis???pneumoboots ?? CODE STATUS???full code ?? Shelia Tellez MD [facility] Date-September 17, 2022. ??Patient seen at 11 PM, observation status ?? IMPORTANT: This document was created by voice recognition software. A conscious effort has been made to improve accuracy of the prevocational/rehabilitation counselor. Any obvious errors or omissions should be clarified with the authorof this document. ? Histories Allergies Allergies ?(Active and Proposed Allergies Only) traMADol? (Severity: Unknown severity, Onset: Unknown) ?Reactions: MARION - Difficulty in breathing amoxicillin? (Severity: Unknown severity, Onset: Unknown) ? Past Medical History/Problem List Recurrent UTIs, hypothyroidism ? Past Surgical History Tubal ligation ? Social History Alcohol Details:??Use: Current. ??Frequency: 1-2 times per year. ??Other: socially. Tobacco Details:??Use: 4 or less cigarettes(less than 1/4 pack)/day in last 30 days, 5-9 cigarettes (between 1/4 to 1/2 pack)/day in last 30 days. ? Psychosocial History ? Family History Mother: Cancer ? Travel History Travel Outside [facility]: No ?? Medications Home Medications fosfomycin (fosfomycin 3 g oral granule for reconstitution)?1?Each?3?gram?By Mouth?Once Methenamine (methenamine hippurate 1 gm oral tablet)?1?tab(s)?1?gram?By Mouth?2 times a day Nitrofurantoin (nitrofurantoin macrocrystals)?By Mouth?4 times a day?Take on capsule ever Sat, and Saturday before bedtime. ? Results Recent Labs BLOOD COUNT & DIFF WBC 12.4 k/mm3 (High)?? 09/17/2022 11:57 RBC 4.67 m/mm3 ()?? 09/17/2022 11:57 Hgb 11.6 Gm/dL (Low)?? 09/17/2022 11:57 Hct 38.8 % ()?? 09/17/2022 11:57 MCV 83.1 femtoliters ()?? 09/17/2022 11:57 MCH 24.8 pg (Low)?? 09/17/2022 11:57 MCHC 29.9 g/dL (Low)?? 09/17/2022 11:57 Platelet Count 283 k/mm3 ()?? 09/17/2022 11:57 RDW-SD 47.8 femtoliters (High)?? 09/17/2022 11:57 MPV 13.3 femtoliters (High)?? 09/17/2022 11:57 Nucleated RBC (Automated) 0.0 #/100 WBC'S ()?? 09/17/2022 11:57 Abs. NRBC 0.0 k/mm3 ()?? 09/17/2022 11:57 Abs. Neut 11.9 k/mm3 (High)?? 09/17/2022 11:57 Abs. Lymph 0.3 k/mm3 (Low)?? 09/17/2022 11:57 Abs. Parke 0.2 k/mm3 (Low)?? 09/17/2022 11:57 Abs. Eo 0.0 k/mm3 ()?? 09/17/2022 11:57 Abs. Baso 0.0 k/mm3 ()?? 09/17/2022 11:57 Neut % 95.5 % (High)?? 09/17/2022 11:57 Lymph % 2.7 % (Low)?? 09/17/2022 11:57 Parke % 1.4 % (Low)?? 09/17/2022 11:57 Eos % 0.0 % ()?? 09/17/2022 11:57 Baso % 0.2 % ()?? 09/17/2022 11:57 Imm Gran 0.2 % ()?? 09/17/2022 11:57 Abs. Imm Gran 0.0 k/mm3 ()?? 09/17/2022 11:57 ?? CHEM GENERAL Sodium 142 mmol/L ()?? 09/17/2022 11:57 Potassium 4.0 mmol/L ()?? 09/17/2022 11:57 Chloride 106 mmol/L ()?? 09/17/2022 11:57 Bicarbonate Level 21 mmol/L (Low)?? 09/17/2022 11:57 Anion Gap 15 ()?? 09/17/2022 11:57 Glucose Level 139 mg/dL (High)?? 09/17/2022 11:57 BUN 16 mg/dL ()?? 09/17/2022 11:57 Creatinine-Blood 0.6 mg/dL ()?? 09/17/2022 11:57 Estimated GFR Creatinine 113 ML/MIN/1.73 M2 ()?? 09/17/2022 11:57 Calcium 9.7 mg/dL ()?? 09/17/2022 11:57 Protein, Total 8.7 Gm/dL (High)?? 09/17/2022 11:57 Albumin 5.0 Gm/dL (High)?? 09/17/2022 11:57 AG Ratio 1.4 ()?? 09/17/2022 11:57 Alkaline Phosphatase 68 units/L ()?? 09/17/2022 11:57 AST (SGOT) 21 units/L ()?? 09/17/2022 11:57 ALT (SGPT) 15 units/L ()?? 09/17/2022 11:57 Bilirubin, Total 0.5 mg/dL ()?? 09/17/2022 11:57 Lactate 1.5 mmol/L ()?? 09/17/2022 17:30 ?? ENDOCRINE/TUMOR MARKER Blood <1 mIU/mL ()?? 09/17/2022 11:57 ?? HEME OTHER Hold Lavender Top SPECIMEN DISCARDED AFTER 24 HOURS. ()?? 09/17/2022 11:57 Hold Blue Top SPECIMEN DISCARDED AFTER 4 HOURS. ()?? 09/17/2022 11:57 ?? MISC. CHEMISTRY Hold Green Top SPECIMEN DISCARDED AFTER 1 WEEK ()?? 09/17/2022 11:57 ?? UA/URINALYSIS Appear/Color, Urine COLORLESS ()?? 09/17/2022 16:40 Specific Simms, Urine >1.050 (High)?? 09/17/2022 16:40 pH, Urine 8.5 (High)?? 09/17/2022 16:40 Albumin, Urine TRACE (Abnormal)?? 09/17/2022 16:40 Glucose, Urine NEGATIVE ()?? 09/17/2022 16:40 Ketones, Urine TRACE (Abnormal)?? 09/17/2022 16:40 Bilirubin, Urine NEGATIVE ()?? 09/17/2022 16:40 Hemoglobin, Urine TRACE (Abnormal)?? 09/17/2022 16:40 Nitrite, Urine NEGATIVE ()?? 09/17/2022 16:40 Leukocyte, Urine TRACE (Abnormal)?? 09/17/2022 16:40 Urobilinogen NORMAL mg/dL ()?? 09/17/2022 16:40 WBC's, Urine 6 /HPF (High)?? 09/17/2022 16:40 RBC's, Urine 4 /HPF (High)?? 09/17/2022 16:40 Bacteria SLIGHT HPF (Abnormal)?? 09/17/2022 16:40 Squamous Epith 12 /HPF (High)?? 09/17/2022 16:40 Mucus SLIGHT /LPF ()?? 09/17/2022 16:40 Hold Urine Culture Testing available 48 hours from time of collection. ()?? 09/17/2022 16:40 ?? VIROLOGY COVID-19 POC Result NEGATIVE ()?? 09/17/2022 10:42 ? Abnormal Labs ?? BLOOD COUNT & DIFF ??Abs. Imm Gran ??0.0 k/mm3 () ??09/17/2022 11:57 ??Abs. Lymph ??0.3 k/mm3 (Low) ??09/17/2022 11:57 ??Abs. Parke ??0.2 k/mm3 (Low) ??09/17/2022 11:57 ??Abs. NRBC ??0.0 k/mm3 () ??09/17/2022 11:57 ??Abs. Neut ??11.9 k/mm3 (High) ??09/17/2022 11:57 ??Hgb ??11.6 Gm/dL (Low) ??09/17/2022 11:57 ??Imm Gran ??0.2 % () ??09/17/2022 11:57 ??Lymph % ??2.7 % (Low) ??09/17/2022 11:57 ??MCH ??24.8 pg (Low) ??09/17/2022 11:57 ??MCHC ??29.9 g/dL (Low) ??09/17/2022 11:57 ??MPV ??13.3 femtoliters (High) ??09/17/2022 11:57 ??Parke % ??1.4 % (Low) ??09/17/2022 11:57 ??Neut % ??95.5 % (High) ??09/17/2022 11:57 ??Nucleated RBC (Automated) ??0.0 #/100 WBC'S () ??09/17/2022 11:57 ??RDW-SD ??47.8 femtoliters (High) ??09/17/2022 11:57 ??WBC ??12.4 k/mm3 (High) ??09/17/2022 11:57 ? CHEM GENERAL ??AG Ratio ??1.4 () ??09/17/2022 11:57 ??Albumin ??5.0 Gm/dL (High) ??09/17/2022 11:57 ??Bicarbonate Level ??21 mmol/L (Low) ??09/17/2022 11:57 ??Estimated GFR Creatinine ??113 ML/MIN/1.73 M2 () ??09/17/2022 11:57 ??Glucose Level ??139 mg/dL (High) ??09/17/2022 11:57 ??Protein, Total ??8.7 Gm/dL (High) ??09/17/2022 11:57 ? ENDOCRINE/TUMOR MARKER ??Blood ??<1 mIU/mL () ??09/17/2022 11:57 ? HEME OTHER ??Hold Blue Top ??SPECIMEN DISCARDED AFTER 4 HOURS. () ??09/17/2022 11:57 ??Hold Lavender Top ??SPECIMEN DISCARDED AFTER 24 HOURS. () ??09/17/2022 11:57 ? MISC. CHEMISTRY ??Hold Green Top ??SPECIMEN DISCARDED AFTER 1 WEEK () ??09/17/2022 11:57 ? UA/URINALYSIS ??Albumin, Urine ??TRACE (Abnormal) ??09/17/2022 16:40 ??Appear/Color, Urine ??COLORLESS () ??09/17/2022 16:40 ??Bacteria ??SLIGHT HPF (Abnormal) ??09/17/2022 16:40 ??Bilirubin, Urine ??NEGATIVE () ??09/17/2022 16:40 ??Glucose, Urine ??NEGATIVE () ??09/17/2022 16:40 ??Hemoglobin, Urine ??TRACE (Abnormal) ??09/17/2022 16:40 ??Hold Urine Culture ??Testing available 48 hours from time of collection. () ??09/17/2022 16:40 ??Ketones, Urine ??TRACE (Abnormal) ??09/17/2022 16:40 ??Leukocyte, Urine ??TRACE (Abnormal) ??09/17/2022 16:40 ??Mucus ??SLIGHT /LPF () ??09/17/2022 16:40 ??Nitrite, Urine ??NEGATIVE () ??09/17/2022 16:40 ??RBC's, Urine ??4 /HPF (High) ??09/17/2022 16:40 ??Specific Simms, Urine ??>1.050 (High) ??09/17/2022 16:40 ??Squamous Epith ??12 /HPF (High) ??09/17/2022 16:40 ??Urobilinogen ??NORMAL mg/dL () ??09/17/2022 16:40 ??WBC's, Urine ??6 /HPF (High) ??09/17/2022 16:40 ??pH, Urine ??8.5 (High) ??09/17/2022 16:40 ? VIROLOGY ??COVID-19 POC Result ??NEGATIVE () ??09/17/2022 10:42 ? Note: Critical results are displayed in red. ? Blood Glucose Trend Glucose Level:??139 mg/dL??High (09/17/22 11:57:00) ? CBC, CBC w/Diff?? CBC?? Differential?? WBC:??12.4 k/mm3??High (11:57) Abs. Neut:??11.9 k/mm3??High (11:57) RBC: 4.67 m/mm3 (11:57) Abs. Lymph:??0.3 k/mm3??Low (11:57) Hct: 38.8 % (11:57) Abs. Parke:??0.2 k/mm3??Low (11:57) RDW-SD:??47.8 femtoliters??High (11:57) Abs. Eo: 0 k/mm3 (11:57) Nucleated RBC (Automated): 0 #/100 WBC'S (11:57) Abs. Baso: 0 k/mm3 (11:57) Abs. NRBC: 0 k/mm3 (11:57) Neut %:??95.5 %??High (11:57) ?? Lymph %:??2.7 %??Low (11:57) ?? Parke %:??1.4 %??Low (11:57) ?? Eos %: 0 % (11:57) ?? Baso %: 0.2 % (11:57) ?? Imm Gran: 0.2 % (11:57) ?? Abs. Imm Gran: 0 k/mm3 (11:57) ? BMP, Mg, and Phos Anion Gap: 15 (11:57) Bicarbonate Level:??21 mmol/L??Low (11:57) BUN: 16 mg/dL (11:57) Calcium: 9.7 mg/dL (11:57) Chloride: 106 mmol/L (11:57) Creatinine-Blood: 0.6 mg/dL (11:57) Estimated GFR Creatinine: 113 ML/MIN/1.73 M2 (11:57) Glucose Level:??139 mg/dL??High (11:57) Potassium: 4 mmol/L (11:57) Sodium: 142 mmol/L (11:57) ?? Coagulation Profile?? No qualifying data available. ?? LFT Albumin:??5 Gm/dL??High (11:57) Alkaline Phosphatase: 68 units/L (11:57) ALT (SGPT): 15 units/L (11:57) AST (SGOT): 21 units/L (11:57) Bilirubin, Total: 0.5 mg/dL (11:57) ?? Urinalysis Albumin, Urine: TRACE Abnormal (16:40) Appear/Color, Urine: COLORLESS (16:40) Bacteria: SLIGHT Abnormal (16:40) Bilirubin, Urine: NEGATIVE (16:40) Glucose, Urine: NEGATIVE (16:40) Hemoglobin, Urine: TRACE Abnormal (16:40) Hold Urine Culture: Testing available 48 hours from time of collection. (16:40) Ketones, Urine: TRACE Abnormal (16:40) Leukocyte, Urine: TRACE Abnormal (16:40) Mucus: SLIGHT (16:40) Nitrite, Urine: NEGATIVE (16:40) pH, Urine:??8.5??High (16:40) RBC's, Urine:??4 /HPF??High (16:40) Specific Simms, Urine:??>1.050??High (16:40) Squamous Epith:??12 /HPF??High (16:40) Urobilinogen: NORMAL (16:40) WBC's, Urine:??6 /HPF??High (16:40) ?? Microbiology ?? Neisseria gonorrheae Culture?? Collected?? Source: Discharge Body Site: Cervix Collected Dt/Tm: 09/17/2022 18:54 Last Updated Dt/Tm: 09/17/2022 18:54 Chlamydia Trachomatis Cult?? Collected?? Source: Discharge Body Site: Cervix Collected Dt/Tm: 09/17/2022 18:54 Last Updated Dt/Tm: 09/17/2022 18:54 Wet Prep?? Completed?? Source: Vaginal Body Site: ?? Collected Dt/Tm: 09/17/2022 18:54 Last Updated Dt/Tm: 09/17/2022 21:01 ?SPECIMEN DESCRIPTION : VAGINAL SPECIMENSPECIAL REQUESTS : NONEDIRECT EXAM : 2+ TRICHOMONAS ?3+ WHITE BLOOD CELLS ?NO YEAST OBSERVED ?NO CLUE CELLS OBSERVEDREPORT STATUS : FINAL 09/17/2022 ?? Hospital Progress note * Patti Teresa RN: VERIFY, PERFORM, SIGN Event Display: Progress Note Hospital Authored Date: Patient: ANGELITA MELÉNDEZ Age: 42 years Sex: Female : 1980 Associated Diagnoses: None Author: Patti Teresa RN Findings Pt received stat dose ceftriaxone prior to d/c, pt discharged from [facility] to home, discharge instructions, medications, and education reviewed with pt, signed and placed in chart, pt with no further questions at this time, IV removed upon d/c, pt left unit with staff accompany via w/c with no issues * Benjamin THOMAS, Noreen Klein: PERFORM Event Display: Progress Note Hospital Authored Date: Patient: ??ANGELITA MELÉNDEZ ? Age:??42 Years?Sex:??Female?:??1980?? Subjective seen and examined today ?? Review of Systems Constitutional: No fever or chills. ENT: No sore throat or nasal congestion. Respiratory: No shortness of breath or cough??. Cardiovascular: No chest pain or??palpitation. Gastrointestinal: Continue??nausea, no vomiting or diarrhea., c/o abd pain Skin: No rash or lesion Neurology: No speech problem no vision problem no focal weakness, no dizziness. Psychiatric: Cooperative, normal mood and affect Objective ?? Physical Exam Awake, alert, oriented Lungs: Clear to auscultation bilateral, no wheezing no rales Heart: Regular rate and rhythm, no murmur, no rub or gallop Abdomen: Soft, tender, non specific; nondistended; Bowel sounds present Extremity: No edema cyanosis clubbing Neurological: No focal deficit Psychiatric: Normal mood and affect Assessment/Plan 42 y/o female patient with history of recurrent UTIs, recently treated for UTI, hemorrhagic cystitis and hypothyroidism???not on thyroid replacement at this time presented to the ER with right lower quadrant abdominal pain that began 24 hours prior to arrival with accompanying chills diaphoresis nausea and vomiting. ? Right lower quadrant abdominal pain ? H/O recurrent UTIs/trichomoniasis/right ovarian simple cyst ?? CT abdomen pelvis with contrast and ultrasound pelvis non signoficant Small ovarian cysts ?? Cervical swab DIRECT EXAM : 2+ TRICHOMONAS ?3+ WHITE BLOOD CELLS ?NO YEAST OBSERVED ?NO CLUE CELLS OBSERVED ?? Gonococcal cs pending ?? Unlikely UTI ??Nausea and vomiting improved ? Plan: ??Will continue Rocephin and Flagyl ??Follow CS ??Encouraged po intake ? Outpatient [facility] and urology follow-up ? H/O Hypothyroidism ??Not on any meds Will check TSH, T3, T4 ? Diet???regular ?? DVT prophylaxis???pneumoboots ?? CODE STATUS???full code Disp: Carlito d/c am pending CS ? Discharge Planning:??Likely??d/c am ? Note * Patti Teresa RN: PERFORM Event Display: Discharge/Transfer Note Hospital Authored Date: [id number] Nursing Discharge Note Entered On: 09/19/2022 10:37 EST Performed On: 09/19/2022 10:37 EST by Patti Teresa RN Nursing Discharge Note 2 Discharge Time : 09/19/2022 10:30 EST Patti Teresa RN - 09/19/2022 12:44 EST Discharge Level of Care at Discharge : Home/Prison/Foster Care Patient Left Unit Via : Wheelchair Patient Accompanied Off Unit with : Responsible adult DC Instructions Provided & Signed by Pt : Yes Patient Understands D/C Instructions : Yes Patient Instructions Discharge Signed : Yes Did Pt have Specialty Bed or Wound Vac : No Patti Teresa RN - 09/19/2022 10:37 EST * Noreen Alexander MD: PERFORM Event Display: Discharge/Transfer Note Hospital Authored Date: Patient: ??ANGELITA MELÉNDEZ ? Age:??42 Years?Sex:??Female?:??1980?? Patient Information Discharge Location: B Primary Care Physician: Not on Staff, PCP Admit Date/Time: 09/17/22 10:06 Discharge Disposition Discharge Disposition: ?? Discharge Diagnosis Abdominal pain (R10.9) ??Trichomonas vaginitis _ Discharge Medications Methenamine (methenamine hippurate 1 gm oral tablet)?1?tab(s)?1?gram?By Mouth?2 times a day Metronidazole (metroNIDAZOLE 500 mg oral tablet)?1?tab(s)?500?Milligram?By Mouth?2 times a day?for 6?Days Nitrofurantoin (nitrofurantoin macrocrystals)?By Mouth?4 times a day?Take on capsule ever Sat, and Saturday before bedtime. ? Quality Measures Tobacco Use Treatment:? Medications Started Metronidazole Allergies Allergies ?(Active and Proposed Allergies Only) traMADol? (Severity: Unknown severity, Onset: Unknown) ?Reactions: MARION - Difficulty in breathing amoxicillin? (Severity: Unknown severity, Onset: Unknown) ? Hospital Course ?? 42 y/o female patient with history of recurrent UTIs, recently treated for UTI, hemorrhagic cystitis and hypothyroidism???not on thyroid replacement at this time presented to the ER with right lower quadrant abdominal pain that began 24 hours prior to arrival with accompanying chills diaphoresis nausea and vomiting. ?Right lower quadrant abdominal pain ?H/O recurrent UTIs/trichomoniasis/right ovarian simple cyst ?CT abdomen pelvis with contrast and ultrasound pelvis non signoficant ??Small ovarian cysts ? Cervical swab ??DIRECT EXAM : 2+ TRICHOMONAS ?3+ WHITE BLOOD CELLS ?NO YEAST OBSERVED ?NO CLUE CELLS OBSERVED ? Gonococcal cs pending ?Unlikely UTI as she was treated already; cs < 10,000 colony ?? Getting Metronidazole and Cefriaxone She also received ceftriaxone which should get rid of any residual infection; no additional antibiotic needed for UTI ?Nausea and vomiting improved ?She is being discharged home in a stable and improved condition ?? Plan: Will continue Metronidazole for total 7 days F/up with PCP f/up Gonococcal CS at??pcp f/up ?Outpatient [facility] and urology follow-up for small ovarian cyst ? H/O Hypothyroidism ?Not on any meds ??Will check TSH, T3, T4 (Added on) PCP can start Levothyroxine depending on TSH value ?Diet???regular ? Objective Assessment and Plan Assessment:??42 y/o female patient with history of recurrent UTIs, recently treated for UTI, hemorrhagic cystitis and hypothyroidism???not on thyroid replacement at this time presented to the ER withright lower quadrant abdominal pain that began 24 hours prior to arrival with accompanying chills diaphoresis nausea and vomiting. ? Right lower quadrant abdominal pain ? H/O recurrent UTIs/trichomoniasis/right ovarian simple cyst ?CT abdomen pelvis with contrast and ultrasound pelvis non signoficant ?? Small ovarian cysts ?? Cervical swab DIRECT EXAM : 2+ TRICHOMONAS ?3+ WHITE BLOOD CELLS ?NO YEAST OBSERVED ?NO CLUE CELLS OBSERVED ?? Gonococcal cs pending ?? Unlikely UTI ?? Nausea and vomiting improved ? Plan: ?? Will continue Rocephin and Flagyl ?? Follow CS ?? Encouraged po intake ? Outpatient [facility] and urology follow-up ? H/O Hypothyroidism ??Not on any meds Will check TSH, T3, T4 ? Diet???regular ? CODE STATUS???full code ? Discharge Planning:? Vital Signs?? Temperature: 98.5 DegF (09/19/22 07:41:00) Temperature Route: Oral (09/19/22 07:41:00) Pulse Rate: 78 bpm (09/19/22 07:41:00) Respiratory Rate: 17 br/min (09/19/22 07:41:00) Systolic Blood Pressure:??139 mm Hg??High (09/19/22 07:41:00) Diastolic Blood Pressure: 77 mm Hg (09/19/22 07:41:00) Blood pressure sites: Arm, left (09/19/22 07:41:00) Mean Arterial Pressure: 98 mm Hg (09/19/22 07:41:00) Pulse Pressure: 62 mm Hg (09/19/22 07:41:00) Oxygen Saturation: 100 % (09/19/22 07:41:00) Mode of Delivery (Oxygen): Room air (09/19/22 07:41:00) Early Warning Score: 0 (09/19/22 07:42:01) ? . Physical Exam Awake, alert, oriented Lungs: Clear to auscultation bilateral, no wheezing no rales Heart: Regular rate and rhythm, no murmur, no rub or gallop Abdomen: Soft, nontender, nondistended; Bowel sounds present Extremity: No edema cyanosis clubbing Neurological: No focal deficit Psychiatric: Normal mood and affect Pending Results Add On Lab Order ordered on 09/17/2022 Add On Lab Order ordered on 09/19/2022 Blood Culture ordered on 09/17/2022 Blood Culture #2 ordered on 09/17/2022 Chlamydia Trachomatis Cult ordered on 09/17/2022 Lactic Acid Level ordered on 09/17/2022 Neisseria gonorrheae Culture ordered on 09/17/2022 Follow-Up Appointments Added Follow Up ?Time Frame ?Comments Not on Staff, PCP?pl follow up with your PCP and [facility] doctor Home Health Face to Face ^HomeHealthFTF Results Discharge Labs BLOOD COUNT & DIFF WBC 5.4 k/mm3 ()?? 09/19/2022 02:53 RBC 3.41 m/mm3 (Low)?? 09/19/2022 02:53 Hgb 8.9 Gm/dL (Low)?? 09/19/2022 02:53 Hct 28.9 % (Low)?? 09/19/2022 02:53 MCV 84.8 femtoliters ()?? 09/19/2022 02:53 MCH 26.1 pg (Low)?? 09/19/2022 02:53 MCHC 30.8 g/dL (Low)?? 09/19/2022 02:53 Platelet Count 166 k/mm3 ()?? 09/19/2022 02:53 RDW-SD 48.2 femtoliters (High)?? 09/19/2022 02:53 MPV 12.2 femtoliters ()?? 09/19/2022 02:53 Nucleated RBC (Automated) 0.0 #/100 WBC'S ()?? 09/19/2022 02:53 Abs. NRBC 0.0 k/mm3 ()?? 09/19/2022 02:53 Abs. Neut 11.9 k/mm3 (High)?? 09/17/2022 11:57 Abs. Lymph 0.3 k/mm3 (Low)?? 09/17/2022 11:57 Abs. Parke 0.2 k/mm3 (Low)?? 09/17/2022 11:57 Abs. Eo 0.0 k/mm3 ()?? 09/17/2022 11:57 Abs. Baso 0.0 k/mm3 ()?? 09/17/2022 11:57 Neut % 95.5 % (High)?? 09/17/2022 11:57 Lymph % 2.7 % (Low)?? 09/17/2022 11:57 Parke % 1.4 % (Low)?? 09/17/2022 11:57 Eos % 0.0 % ()?? 09/17/2022 11:57 Baso % 0.2 % ()?? 09/17/2022 11:57 Imm Gran 0.2 % ()?? 09/17/2022 11:57 Abs. Imm Gran 0.0 k/mm3 ()?? 09/17/2022 11:57 ?? CHEM GENERAL Sodium 137 mmol/L ()?? 09/19/2022 02:53 Potassium 3.3 mmol/L (Low)?? 09/19/2022 02:53 Chloride 101 mmol/L ()?? 09/19/2022 02:53 Bicarbonate Level 25 mmol/L ()?? 09/19/2022 02:53 Anion Gap 11 ()?? 09/19/2022 02:53 Glucose Level 88 mg/dL ()?? 09/19/2022 02:53 BUN 5 mg/dL (Low)?? 09/19/2022 02:53 Creatinine-Blood 0.6 mg/dL ()?? 09/19/2022 02:53 Estimated GFR Creatinine 114 ML/MIN/1.73 M2 ()?? 09/19/2022 02:53 Calcium 9.7 mg/dL ()?? 09/17/2022 11:57 Magnesium 1.8 mg/dL ()?? 09/19/2022 02:53 Protein, Total 8.7 Gm/dL (High)?? 09/17/2022 11:57 Albumin 5.0 Gm/dL (High)?? 09/17/2022 11:57 AG Ratio 1.4 ()?? 09/17/2022 11:57 Alkaline Phosphatase 68 units/L ()?? 09/17/2022 11:57 AST (SGOT) 21 units/L ()?? 09/17/2022 11:57 ALT (SGPT) 15 units/L ()?? 09/17/2022 11:57 Bilirubin, Total 0.5 mg/dL ()?? 09/17/2022 11:57 Lactate 1.5 mmol/L ()?? 09/17/2022 17:30 ? ENDOCRINE/TUMOR MARKER Blood <1 mIU/mL ()?? 09/17/2022 11:57 ? HEME OTHER Hold Lavender Top SPECIMEN DISCARDED AFTER 24 HOURS. ()?? 09/17/2022 11:57 Hold Blue Top SPECIMEN DISCARDED AFTER 4 HOURS. ()?? 09/17/2022 11:57 ?? MISC. CHEMISTRY Hold Green Top SPECIMEN DISCARDED AFTER 1 WEEK ()?? 09/17/2022 11:57 ? SEROLOGY INF DISEASE Chlamydia Trachomatis Amplified Probe NEGATIVE ()?? 09/17/2022 18:58 N. Gonorrhoeae Amplified Probe NEGATIVE ()?? 09/17/2022 18:58 Chlamydia / GC AMP Probe Specimen CERVIX ()?? 09/17/2022 18:58 ? UA/URINALYSIS Appear/Color, Urine COLORLESS ()?? 09/17/2022 16:40 Specific Simms, Urine >1.050 (High)?? 09/17/2022 16:40 pH, Urine 8.5 (High)?? 09/17/2022 16:40 Albumin, Urine TRACE (Abnormal)?? 09/17/2022 16:40 Glucose, Urine NEGATIVE ()?? 09/17/2022 16:40 Ketones, Urine TRACE (Abnormal)?? 09/17/2022 16:40 Bilirubin, Urine NEGATIVE ()?? 09/17/2022 16:40 Hemoglobin, Urine TRACE (Abnormal)?? 09/17/2022 16:40 Nitrite, Urine NEGATIVE ()?? 09/17/2022 16:40 Leukocyte, Urine TRACE (Abnormal)?? 09/17/2022 16:40 Urobilinogen NORMAL mg/dL ()?? 09/17/2022 16:40 WBC's, Urine 6 /HPF (High)?? 09/17/2022 16:40 RBC's, Urine 4 /HPF (High)?? 09/17/2022 16:40 Bacteria SLIGHT HPF (Abnormal)?? 09/17/2022 16:40 Squamous Epith 12 /HPF (High)?? 09/17/2022 16:40 Mucus SLIGHT /LPF ()?? 09/17/2022 16:40 Hold Urine Culture Testing available 48 hours from time of collection. ()?? 09/17/2022 16:40 ? VIROLOGY COVID-19 POC Result NEGATIVE ()?? 09/17/2022 10:42 ? Microbiology ?? Neisseria gonorrheae Culture?? Collected?? Source: Discharge Body Site: Cervix Collected Dt/Tm: 09/17/2022 18:54 Last Updated Dt/Tm: 09/17/2022 18:54 Chlamydia Trachomatis Cult?? Collected?? Source: Discharge Body Site: Cervix Collected Dt/Tm: 09/17/2022 18:54 Last Updated Dt/Tm: 09/17/2022 18:54 Wet Prep?? Completed?? Source: Vaginal Body Site: ?? Collected Dt/Tm: 09/17/2022 18:54 Last Updated Dt/Tm: 09/17/2022 21:01 ?SPECIMEN DESCRIPTION : VAGINAL SPECIMENSPECIAL REQUESTS : NONEDIRECT EXAM : 2+ TRICHOMONAS ?3+ WHITE BLOOD CELLS ?NO YEAST OBSERVED ?NO CLUE CELLS OBSERVEDREPORT STATUS : FINAL 09/17/2022 Chlamydia/N. Gonorrhoeae TMA (NAAT)?? Completed?? Source: Swab Body Site: Cervix Collected Dt/Tm: 09/17/2022 20:49 Last Updated Dt/Tm: 09/18/2022 17:55 ? 20 minutes spent on discharge * Malick OLIVEIRA, Patti Cedeno: PERFORM Event Display: Patient Education/Instruction Authored Date: [id number] Inpatient Adult Discharge Instructions [address] [address] Name: ANGELITA MELÉNDEZ : 1980 Visit: 09/17/2022 10:06:00 Current Date: 09/19/2022 10:37 Account: [id number] Inpatient Adult Discharge Instructions We would like to thank you for allowing us to assist you with your healthcare needs. The following includes patient education materials and information regarding your injury/illness. Our entire staffstrives to provide an excellent experience for our patients and their families. PLEASE ENSURE YOU FOLLOW-UP PER THE INSTRUCTIONS BELOW! ?? YOUR OPINION IS IMPORTANT TO US! Please complete the survey you may receive by mail or email. Your feedback will be used to make improvements to the healthcare experiences of our patients and their families. Surveys are administered by [employer] ?? If further treatment with your primary care physician or another doctor is recommended, it is important for you to keep the appointment. Call your primary care physician or return to the Emergency Department immediately if your condition worsens, fails to improve, or new symptoms develop. If you need to find a doctor, you can call [facility] for a referral at [phone] or toll free at [phone] or log in to [email or web address].. ?? You can view and manage your care through the patient portal or by using a health care malia of your choosing. [employer] is a website that allows you to securely view your medical information including your hospital discharge summary, office visit summaries, medications and follow-up visits. You can also request appointments, renew medications, and request access to your medical information using a health care malia of your choosing, or just ask a question. You can enroll at [email or web address] or register during your next office visit. You have been discharged from [facility], Patient Care Unit: [facility]. If you have any questions regarding these instructions after you leave, please call us and we will be happy to assist you. [facility] Your Care Team Attending Physician Noreen Alexander MD Discharging Providers Noreen Alexander MD Reason for Admission nauea vomit chills, chronic utis just completed antx for it. now has above symptoms. pt alert active vomit Your Diagnosis Abdominal pain Tests Performed Below is a partial list of the tests performed during your hospitalization. You may have had other tests and procedures not included in this list. Please discuss all test results with your provider. BUN CBC CBC w/ Differential Chlamydia Trachomatis Cult?-- Results Pending -- Chlamydia/N. Gonorrhoeae TMA (NAAT) Comprehensive Metabolic Panel COVID-19 RNA POC Creatinine Electrolytes GC Culture?-- Results Pending -- Glucose Level HOLD BLUE TUBE HOLD GREEN TUBE HOLD LAVENDER TUBE Lactate Level Magnesium Level Serum Quantitative Urinalysis w/hold for Urine Culture CT Abd/Pelvis W/ IV Contrast Only US Pelvic Doppler Comp US Pelvic Transabdominal US Pelvic Transvaginal ? You will be contacted within 72 hours with your results. Primary Care Provider Not on Staff, PCP Advance Directive Health Care Proxy on File No Patient refuses to discuss No qualifying data available. Discharge Vitals Temperature: 98.5 DegF Height: 163 cm Pulse Rate: 78 bpm Weight: 68.4 kg Respiratory Rate: 18 br/min Body Mass Index:??25.74 kg/m2??High Systolic Blood Pressure:??139 mm Hg??High Body surface area: 1.76 Diastolic Blood Pressure: 77 mm Hg ?? Oxygen Saturation: 100 % ?? Studies Pending All tests and labs ordered during this hospital stay have been completed unless listed below. Please discuss all pending results with your provider listed above in these instructions. ?? Add On Lab Order Blood Culture Blood Culture #2 Chlamydia Trachomatis Cult Free T4 Lactic Acid Level Neisseria gonorrheae Culture (GC Culture) T3 Free (FREE T3) TSH What to do next Instructions From Your Doctor Discharge Orders You Need to Schedule the Following Appointments Follow Up with??Not on Staff, PCP When?? Why: pl follow up with your PCP and [facility] doctor Where: Discharge Medications ANGELITA MELÉNDEZ :1980 Visit Date:09/17/2022 Medications: Please continue your medications until treatment is completed or stopped by your provider. Medications not listed below should be discontinued. Discuss any questions related to medications with your provider. What How Much When Instructions Next Dose New Metronidazole (metroNIDAZOLE 500 mg oral tablet) 1 tab(s) Oral Twice a day Duration: 6 Days Pickup at [facility] 3 tonight at 9pm Unchanged Methenamine (methenamine hippurate 1 gm oral tablet) 1 tab(s) Oral Twice a day resume home schedule Unchanged Nitrofurantoin (nitrofurantoin macrocrystals) Oral 4 times a day Take on capsule ever Sat, and Saturday before bedtime. ?? resume home schedule [facility]: [address], [place] [id number] [phone] ?? What How Much When Comments Stop Taking fosfomycin (fosfomycin 3 g oral granule for reconstitution) 1 Each Oral Once Test Results Below is a partial list of the most recent Laboratory test results done prior to this discharge. You may have had other tests and procedures not included in this list. Please discuss all test resultswith your provider. BUN (09/19/2022) ???BUN - 5 mg/dL CBC (09/19/2022) ???WBC - 5.4 k/mm3???RBC - 3.41 m/mm3???Hgb - 8.9 Gm/dL???Hct - 28.9 %???MCV - 84.8 femtoliters???MCH - 26.1 pg???MCHC - 30.8 g/dL???Platelet Count - 166 k/mm3???RDW-SD - 48.2 femtoliters???MPV - 12.2 femtoliters???Nucleated RBC (Automated) - 0.0 #/100 WBC'S???Abs. NRBC - 0.0 k/mm3 CBC w/ Differential (09/17/2022) ???WBC - 12.4 k/mm3???RBC - 4.67 m/mm3???Hgb - 11.6 Gm/dL???Hct - 38.8 %???MCV - 83.1 femtoliters???MCH - 24.8 pg???MCHC - 29.9 g/dL???Platelet Count - 283 k/mm3???RDW-SD - 47.8 femtoliters???MPV - 13.3 femtoliters???Nucleated RBC (Automated) - 0.0 #/100 WBC'S???Abs. NRBC - 0.0 k/mm3???Abs. Neut - 11.9 k/mm3???Abs. Lymph - 0.3 k/mm3???Abs. Parke - 0.2 k/mm3???Abs. Eo - 0.0 k/mm3???Abs. Baso - 0.0 k/mm3???Neut % - 95.5 %???Lymph % - 2.7 %???Parke % - 1.4 %???Eos % - 0.0 %???Baso % - 0.2 %???Imm Gran - 0.2 %???Abs. Imm Gran - 0.0 k/mm3 Chlamydia/N. Gonorrhoeae TMA (NAAT) (09/17/2022) ???Chlamydia Trachomatis Amplified Probe - NEGATIVE???N. Gonorrhoeae Amplified Probe - NEGATIVE???Chlamydia / GC AMP Probe Specimen - CERVIX Comprehensive Metabolic Panel (09/17/2022) ???Sodium - 142 mmol/L???Potassium - 4.0 mmol/L???Chloride - 106 mmol/L???Bicarbonate Level - 21 mmol/L???Anion Gap - 15???Glucose Level - 139 mg/dL???BUN - 16 mg/dL???Creatinine-Blood - 0.6 mg/dL???Estimated GFR Creatinine - 113 ML/MIN/1.73 M2???Calcium - 9.7 mg/dL???Protein, Total - 8.7 Gm/dL???Al bumin - 5.0 Gm/dL???AG Ratio - 1.4???Alkaline Phosphatase - 68 units/L???AST (SGOT) - 21 units/L???ALT (SGPT) - 15 units/L???Bilirubin, Total - 0.5 mg/dL COVID-19 RNA POC (09/17/2022) ???COVID-19 POC Result - NEGATIVE Creatinine (09/19/2022) ???Creatinine-Blood - 0.6 mg/dL???Estimated GFR Creatinine - 114 ML/MIN/1.73 M2 Electrolytes (09/19/2022) ???Sodium - 137 mmol/L???Potassium - 3.3 mmol/L???Chloride - 101 mmol/L???Bicarbonate Level - 25 mmol/L???Anion Gap - 11 Glucose Level (09/19/2022) ???Glucose Level - 88 mg/dL HOLD BLUE TUBE (09/17/2022) ???Hold Blue Top - SPECIMEN DISCARDED AFTER 4 HOURS. HOLD GREEN TUBE (09/17/2022) ???Hold Green Top - SPECIMEN DISCARDED AFTER 1 WEEK HOLD LAVENDER TUBE (09/17/2022) ???Hold Lavender Top - SPECIMEN DISCARDED AFTER 24 HOURS. Lactate Level (09/17/2022) ???Lactate - 1.5 mmol/L Magnesium Level (09/19/2022) ???Magnesium - 1.8 mg/dL Serum Quantitative (09/17/2022) ? ?Blood - <1 mIU/mL Urinalysis w/hold for Urine Culture (09/17/2022) ? ?Appear/Color, Urine - COLORLESS? ?Specific Simms, Urine - >1.050? ?pH, Urine - 8.5? ?Albumin, Urine - TRACE???Glucose, Urine - NEGATIVE???Ketones, Urine - TRACE???Bilirubin, Urine - NEGATIVE???Hemoglobin, Urine - TRACE???Nitrite, Urine - NEGATIVE???Leukocyte, Urine - TRACE???Urobilinogen - NORMAL???WBC's, Urine - 6 /HPF???RBC's, Urine - 4 /HPF???Bacteria - SLIGHT???Squamous Epith - 12 /HPF ???Mucus - SLIGHT???Hold Urine Culture - Testing available 48 hours from time of collection. Immunizations This Visit Given Vaccine Dateinfluenza virus vaccine, inactivated 09/19/2022 Allergies (NKA means No Known Allergies) amoxicillin traMADol??(MARION - Difficulty in breathing) Problems No qualifying data available Education Materials Below is the list of Educational Leaflet Providered with your Discharge Instructions. Metronidazole Oral Tablet?? Trichomonas Vaginal Infection (Trichomoniasis)?? Valuables and Belongings I fully understand and agree that [facility] accepts no responsibility for all my personal property including clothing, toilet articles, radios, jewelry, dentures, hearing aids, rings, money, or any other property that is in my possession or is brought to me after admission. I understand certain valuables may be placed in a hospital safe for a short period of time. I understand that the hospital is not liable for loss or damage due to accident, fire, or other natural occurrence while said property is in the safe. I accept full responsibility for any personal property that I keep with me, and will not hold the hospital responsible in case of loss or disappearance. I acknowledge that i have been encouraged to send valuables and belongings home. ?? No Valuables/Belongings: No valuables/belongings present Review of Valuable and Belonging List: With patient Date for Pt to Sign Valuables/Belongings: 09/17/22 21:43:00 ?? Other Discharge Information ? Pulmonary Rehab Status?? Pulmonary Rehab Discharge Status?? Respiratory Rate: 18 br/min ? Common Emergency Awareness Tips IS IT A STROKE? Act FAST and Check for these signs: FACE Does the face look uneven? ARM Does one arm drift down? SPEECH Does their speech sound strange? TIME Call at any sign of stroke ?? Heart Attack Signs Chest discomfort: Most heart attacks involve discomfort in the center of the chest and lasts more than a few minutes, or goes away and comes back. It can feel like uncomfortable pressure, squeezing, fullness or pain. Discomfort in upper body: Symptoms can include pain or discomfort in one or both arms, back, neck, jaw or stomach. Shortness of breath: With or without discomfort. Other signs: Breaking out in a cold sweat, nausea, or lightheaded. Remember, MINUTES DO MATTER. If you experience any of these heart attack warning signs, call to get immediate medical attention! ?? Smoking can increase your chances of developing chronic health problems and can cause harmful effects to other family members in your house. If you smoke, you are strongly encouraged to quit. Please call [facility] at [phone] or [phone] ([phone]) or log in to [email or web address] for referrals to smoking cessation programs. ?? The National Suicide Prevention Hotline is available 03/06 if you or someone you know needs to find a reason to keep living. By calling 5-834-222-tecy (8891) you'll be connected to a skilled, trained counselor at a crisis center in your area. INPATIENT DISCHARGE INSTRUCTIONS SIGNATURE PAGE ANGELITA MELÉNDEZ Location:[facility] Registration Date and Time:09/17/2022 10:06 EST Primary Care Physician: Not on Staff, PCP I BRISA MELÉNDEZTHIA, have received the above patient education materials/instructions and have verbalized understanding. If ambulance or transport services are being used I further acknowledge being given a choice of service. ?? If you need to contact me, please call me at this number: . 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 65661-88 Metronidazole Oral Tablet Brands: Flagyl Uses For infection. ?? Instructions Swallow with a full glass (8 oz) of water unless your doctor gives you different instructions. You may take with food to prevent stomach upset. It is very important that you take the medicine at about the same time every day. It will work bestif you do this. Space doses evenly to keep a steady amount of medicine in the body. Keep the medicine at room temperature. Avoid heat and direct light. If you forget to take a dose on time, take it as soon as you remember. If it is almost time for thenext dose, do not take the missed dose. Return to your normal dosing schedule. Do not take 2 doses of this medicine at one time. Drug interactions can change how medicines work or increase risk for side effects. Tell your healthcare providers about all medicines taken. Include prescription and uhho-odw-tdrcuvu medicines, vitamins, and herbal medicines. Speak with your doctor or pharmacist before starting or stopping any medicine. Tell your doctor if symptoms do not get better or if they get worse. Keep using this medicine for the full number of days that it is prescribed. Do not stop the medicine even if you start to feel better. Keep all appointments for medical exams and tests while on this medicine. ?? Cautions Tell your doctor and pharmacist if you ever had an allergic reaction to a medicine. Do not use the medication any more than instructed. Your ability to stay alert or to react quickly may be impaired by this medicine. Do not drive or operate machinery until you know how this medicine will affect you. Avoid alcohol and products containing propylene glycol during and for 3 days after treatment with this medicine. Speak with your health care provider before receiving any vaccinations. Please tell your doctor if you have moderate to severe diarrhea while on this medicine. Do not treat the diarrhea with bhrg-ljo-krymisv diarrhea medicine. Tell the doctor or pharmacist if you are , planning to be , or . Do not share this medicine with anyone who has not been prescribed this medicine. ?? Side Effects The following is a list of some common side effects from this medicine. Please speak with your doctor about what you should do if you experience these or other side effects. ??? decreased appetite ??? diarrhea ??? dizziness ??? headaches ??? nausea and vomiting ??? stomachupset or abdominal pain ??? changes in taste or unpleasant taste Call your doctor or get medical help right away if you notice any of these more serious side effects: ??? confusion ??? numbness or tingling in hands and feet ??? severe or persistent headache ??? signs of liver damage (such as yellowing of eye or skin, dark urine, or unusual tiredness) ??? seizures ??? unsteadiness while walking ??? difficulty or discomfort urinating ??? vaginal itching or yeast infection ??? sudden change or loss of vision A few people may have an allergic reaction to this medicine. Symptoms can include difficulty breathing, skin rash, itching, swelling, or severe dizziness. If you notice any of these symptoms, seek medical help quickly. ?? Extra Please speak with your doctor, nurse, or pharmacist if you have any questions about this medicine. ?? [email or web address] IMPORTANT NOTE: This document tells you briefly how to take your medicine, but it does not tell youall there is to know about it. Your doctor or pharmacist may give you other documents about your medicine. Please talk to them if you have any questions. Always follow their advice. There is a more complete description of this medicine available in [place]ian. Scan this code on your smartphone or tablet or use the web address below. You can also ask your pharmacist for a printout. If you have any questions, please ask your pharmacist. The display and use of this drug information is subject to Terms of Use. Copyright(c) 2021 [employer]. ?? The Listen Edition. All rights reserved. This information is not intended as a substitute for professional medical care. Always follow your healthcare professional's instructions. ?? * Malick RN, Patti Cedeno: PERFORM Event Display: Patient Education Leaflets Authored Date: [id number] Trichomonas Vaginal Infection (Trichomoniasis) ?? [id number] Trichomonas Vaginal Infection (Trichomoniasis) Trichomonas??vaginal infection is often called ???trich.?? It is caused by a parasite that is passed during sex. This makes trich a sexually transmitted infection (STI). Both men and women can get trich, but it is more common in women. Most people who have trich don???t have any symptoms at first. If symptoms do occur, they may take weeks or months to develop. Symptoms in women can include: ??? Thin discharge from the vagina??that may smell bad and be clear, white, carbajal, green, or yellow in color ??? Itching,??burning, redness, or soreness in or around the vagina ??? Pain in the lower belly ??? Frequent urination or pain and burning during urination ??? Pain during sex Symptoms in men are not very common.??Men may have trich and pass it to women during sex without knowing they were ever infected. Trich is most often treated with antibiotics. Without treatment, trich can increase the risk of more serious health problems such as: ??? Pelvic inflammatory disease (PID) ??? delivery (giving to a baby early if you???re ) ??? HIV and certain other STIs Home care ??? Take the antibiotics you???re prescribed exactly as directed. Finish?? all of the medicine, even if your symptoms go away. ??? Don't drink alcohol until you???re done with your treatment. ??? Tell any partners you have sex with that you have trich.??They will need to be tested for trich and possibly treated as well. ??? Don't have sex until 7 to 10 days after you and any partners you have sex with are confirmed to have been treated. ?? Prevention The only way to prevent getting trich or any other STI is to not have sex. If you choose to have sex, then take steps to lower your health risks: ??? Use condoms when having sex. ??? Limit the numberof partners you have sex with. ??? Get tested regularly for STIs. Ask any partner you have sex withto do the same. ??? Don???t have sex with anyone who has symptoms that may be due to an STI. ?? Follow-up care Follow up with your healthcare provider, or as advised.??Testing will likely be done to ensure thatthe infection has cleared. ?? When to get medical advice Call your healthcare provider right away if: ??? You have a fever of??100.4??F (38??C)??or higher, or as directed by your provider. ??? Your symptoms get worse, or they don???t go away even after completing your treatment. ??? You have new pain in the lower belly??or pelvic region. ??? You have side effects that bother you or a reaction to the medicine you???re taking. ??? You or any partners youhave sex with have new symptoms, such as a??rash, joint pain, or sores. ?? Last Reviewed Date: 2020 ?? [id number] The Listen Edition. All rights reserved. This information is not intended as a substitute for professional medical care. Always follow your healthcare professional's instructions. ?? * [facility] , CIS S: TRANSCRIBE Jeffry THOMAS, Devrim: VERIFY Tito THOMAS, Dylon T: SIGN Event Display: Result: Authored Date: [id number] US Pelvic Transvaginal, US Pelvic Doppler Comp, US Pelvic Transabdominal History of Present Illness: Right lower quadrant pain.? pyelonephritis recent UTI not resolved. Reason: Pelvic Pain. Clinical Question(s): Torsion. COMPARISON: Pelvic ultrasound 05/04/2022, CT abdomen pelvis with IV contrast 09/17/2022, CT abdomen and pelvis without contrast 05/29/2022. TECHNIQUE: Transabdominal and transvaginal pelvic ultrasound with grayscale, color Doppler, and spectral Doppler analysis. FINDINGS: UTERUS: Size: 9.3 x 4.4 x 5.4 cm, volume 116.7 cc. Endometrial thickness: 1.0 cm. Morphology: Normal configuration and echotexture. There are a few subcentimeter nabothian cysts in the cervix. RIGHT OVARY: Size: 3.3 x 2.5 x 2.6 cm, volume 11.0 cc. Morphology: Normal echotexture. 2.2 x 1.3 x 1.9 cm well-circumscribed anechoic lesion with posterior acoustic enhancement abutting the right ovary, likely a paraovarian simple cyst. No pathologic mass. Normal arterial and venous waveforms. LEFT OVARY: Size: 3.1 x 2.1 x 2.7 cm, volume 9.1 cc. Morphology: Normal echotexture. No pathologic cysts or mass. Normal arterial and venous waveforms. ADNEXA: Normal. No adnexal masses or fluid collections. IMPRESSION: No evidence of ovarian torsion. A 2.2 cm right paraovarian simple cyst without suspicious features. No routine follow-up is needed. I have personally reviewed the images and I agree with this report. WSN: [id number] Ordering Physician: Ajit Hardy Dictated By: Dylon Francis MD Dictated Date/Time: 09/17/22 8:34 pm Reviewed By: Edna Teran MD Signed By: Edna Teran MD Signed Date/Time: 09/17/22 8:39 pm Transcribed By: FABI Transcribed Date/Time: 09/17/22 8:[address] Abdomen and Pelvis W contrast IV * [facility] , CIS S: TRANSCRIYURY Váqzuez MD, Louie: VERIFY Event Display: Result: Authored Date: [id number] CT Abd/Pelvis W/ IV Contrast Only Hx of Present Illness: ? Pyelonephritis recent UTI not resolved; Reason: Other:; RLQ abdominal pain; Clinical Question(s): Calculus; appendix; Order Comment: TECHNIQUE: Spiral CT through the abdomen and pelvis with IV contrast formatted in 3 planes. 100 cc of Omnipaque 350 was administered intravenously. This study was performed without oral contrast. Weight-based protocol using automatic tube modulation was used to optimize exposure parameters. CTDIvol Body: 14.00 mGy, DLP Body: 745 mGy*cm. COMPARISON: 05/29/2022. FINDINGS: Television Anchor View Findings, Lines and Tubes: None. Visualized Chest: Lung bases are clear. No pleural effusion. The heart is normal in size. No pericardial effusion. Diaphragm: Normal. Liver: Normal. Gallbladder: No CT evidence of gallbladder pathology. Bile ducts: No biliary ductal dilation. Spleen: Normal. Pancreas: Normal. Adrenal glands: Normal. Kidneys and ureters: No hydronephrosis, stones, or suspicious masses. A 3 mm area of low-attenuation is seen in the upper pole of left kidney posteriorly which is too small to be characterized. No abnormal enhancement. The ureters are normal in calibers. Bladder: Normal. Reproductive organs: The uterus is normal for age. It contains a small amount fluid in the endometrial cavity. Bilateral adnexa have small lobulated ovoid cysts. Please correlate patent with pelvic ultrasound if clinically necessary. Stomach, small bowel, and large bowel: Stomach is distended by fluid but otherwise unremarkable. The evaluation of the bowel loops is limited due to lack of oral contrast. A few dilated small bowel loops are seen involving the jejunum which is nonspecific. No definite obstruction. The ileum is normal in caliber. No diverticulosis of the colon. Appendix: Normal. Peritoneum and retroperitoneum: No ascites or pneumoperitoneum. No omental or mesenteric lesions. Lymph nodes: No enlarged lymph nodes. Blood vessels: Mild vascular calcifications but no aneurysm. No evidence of venous thrombosis. Abdominal and pelvic wall: Unremarkable. Bones: No acute abnormality. IMPRESSION: No acute pathology seen in the abdomen and pelvis. No renal calculi or obstruction of collecting system. There is no evidence of pyelonephritis. Bilateral adnexa have small lobulated ovoid cysts. Please correlate patent with pelvic ultrasound if clinically necessary. WSN: [id number] Ordering Physician: Jamie Bryant Dictated By: Louie Vázquez MD Dictated Date/Time: 09/17/22 4:11 pm Reviewed By: Louie Vázquez MD Signed By: Louie Vázquez MD Signed Date/Time: 09/17/22 4:11 pm Transcribed By: FABI Transcribed Date/Time: 09/17/22 4:10 pm US Pelvis * [facility] , CIS S: TRANSCRIBE Jeffry THOMAS, Devrim: VERIFY Dylon Francis MD T: SIGN Event Display: Result: Authored Date: [id number] US Pelvic Transvaginal, US Pelvic Doppler Comp, US Pelvic Transabdominal History of Present Illness: Right lower quadrant pain.? pyelonephritis recent UTI not resolved. Reason: Pelvic Pain. Clinical Question(s): Torsion. COMPARISON: Pelvic ultrasound 05/04/2022, CT abdomen pelvis with IV contrast 09/17/2022, CT abdomen and pelvis without contrast 05/29/2022. TECHNIQUE: Transabdominal and transvaginal pelvic ultrasound with grayscale, color Doppler, and spectral Doppler analysis. FINDINGS: UTERUS: Size: 9.3 x 4.4 x 5.4 cm, volume 116.7 cc. Endometrial thickness: 1.0 cm. Morphology: Normal configuration and echotexture. There are a few subcentimeter nabothian cysts in the cervix. RIGHT OVARY: Size: 3.3 x 2.5 x 2.6 cm, volume 11.0 cc. Morphology: Normal echotexture. 2.2 x 1.3 x 1.9 cm well-circumscribed anechoic lesion with posterior acoustic enhancement abutting the right ovary, likely a paraovarian simple cyst. No pathologic mass. Normal arterial and venous waveforms. LEFT OVARY: Size: 3.1 x 2.1 x 2.7 cm, volume 9.1 cc. Morphology: Normal echotexture. No pathologic cysts or mass. Normal arterial and venous waveforms. ADNEXA: Normal. No adnexal masses or fluid collections. IMPRESSION: No evidence of ovarian torsion. A 2.2 cm right paraovarian simple cyst without suspicious features. No routine follow-up is needed. I have personally reviewed the images and I agree with this report. WSN: [id number] Ordering Physician: Ajit Hardy Dictated By: Dylon Francis MD Dictated Date/Time: 09/17/22 8:34 pm Reviewed By: Edna Teran MD Signed By: Edna Teran MD Signed Date/Time: 09/17/22 8:39 pm Transcribed By: FAIB Transcribed Date/Time: 09/17/22 8:28 pm US Pelvis transvaginal * [facility] , CIS S: TRANSCRIBE Edna Teran MD: VERIFY Dylon Francis MD: SIGN Event Display: Result: Authored Date: [id number] US Pelvic Transvaginal, US Pelvic Doppler Comp, US Pelvic Transabdominal History of Present Illness: Right lower quadrant pain.? pyelonephritis recent UTI not resolved. Reason: Pelvic Pain. Clinical Question(s): Torsion. COMPARISON: Pelvic ultrasound 05/04/2022, CT abdomen pelvis with IV contrast 09/17/2022, CT abdomen and pelvis without contrast 05/29/2022. TECHNIQUE: Transabdominal and transvaginal pelvic ultrasound with grayscale, color Doppler, and spectral Doppler analysis. FINDINGS: UTERUS: Size: 9.3 x 4.4 x 5.4 cm, volume 116.7 cc. Endometrial thickness: 1.0 cm. Morphology: Normal configuration and echotexture. There are a few subcentimeter nabothian cysts in the cervix. RIGHT OVARY: Size: 3.3 x 2.5 x 2.6 cm, volume 11.0 cc. Morphology: Normal echotexture. 2.2 x 1.3 x 1.9 cm well-circumscribed anechoic lesion with posterior acoustic enhancement abutting the right ovary, likely a paraovarian simple cyst. No pathologic mass. Normal arterial and venous waveforms. LEFT OVARY: Size: 3.1 x 2.1 x 2.7 cm, volume 9.1 cc. Morphology: Normal echotexture. No pathologic cysts or mass. Normal arterial and venous waveforms. ADNEXA: Normal. No adnexal masses or fluid collections. IMPRESSION: No evidence of ovarian torsion. A 2.2 cm right paraovarian simple cyst without suspicious features. No routine follow-up is needed. I have personally reviewed the images and I agree with this report. WSN: [id number] Ordering Physician: Ajit Hardy Dictated By: Dylon Francis MD Dictated Date/Time: 09/17/22 8:34 pm Reviewed By: Edna Teran MD Signed By: Edna Teran MD Signed Date/Time: 09/17/22 8:39 pm Transcribed By: FABI Transcribed Date/Time: 09/17/22 8:28 pm Patient Care team information Care Team Personnel Name: Ibis Ghosh RN Position: [facility] RN Member Role: Primary Care Nurse Name: Jolly Galo RN Position: [facility] RN Member Role: Primary Care Nurse Name: Not on Staff, PCP Position: [facility] Physician (General Medicine) Member Role: PCP Name: Shilpa Temple RN Position: [facility] RN Member Role: Primary Care Nurse Name: Carmen Gandara RN Position: [facility] RN Member Role: Primary Care Nurse Name: Miguel Campa Position: [facility] ED TA [facility] Member Role: ED Associate Name: Awa Hassan RN Position: [facility] ED RN W/OE and Tasks Member Role: Patient Care Provider Name: Ajit Hardy DO Position: [facility] Resident Member Role: ED Resident Address: Address: [address] [place] [address] [place], [place] [address] Name: Juma Schafer MD Position: [facility] ED Medicine Address: Address: [address] [place] [address] [place] [address]- Care Team Related Persons Name: MANNY LINARES Address: home [address] [facility] [id number]
--- OUTSIDE RECORDS SUMMARY | 2024-06-22 16:38 | XMS_ITS | Continuity of Care Document ---
Author Organization [facility] ter Address [address] [place] [address]- Care Team Providers Care Card Puncher Name Role Phone Not on Staff, PCP Primary Care Physician Unavail able Encounter [facility] [place] Date(s): 05/28/22 - 05/31/[address] [address]- Encounter Diagnosis Suprapubic pain(Final) - 05/29/22 Discharge Disposition: A-D/C Home Attending Physician: Jerry Luis MD Admitting Physician: Kit Velasquez MD Referring Physician: Not on Staff, Referring [...] virus vaccine, inactivated 11/05/17 Peng rded Medications Dilaudid 2 mg oral tablet 1 tablet = 2 mg, By Mouth, Every 6 hours, PRN Pain , Severe, # 12 tablet, 0 Refills, Acute 07/11/2210:00:00 EDT, 05/31/22 13:41:00 EDT, Tablet, Partial fill upon patient request if the prescription is for a schedule II opioid drug. Start Date: 05/31/22 Stop Date: 07/11/22 Status: Ordered Dilaudid Inj 1 mg, Injection, IV Push Slowly, Every 3 hours, PRN for Pain , Severe, Routine, 05/30/22 8:52:00 EDT Start Date: 05/30/22 Stop Date: 06/01/22 Status: Discontinued Dulcolax 5 mg oral enteric coated tablet 2 tablet = 10 mg, By Mouth, Daily, PRN as needed for constipation, # 30 tablet, 0 Refills, Acute 08/10/22 10:00:00 EDT, 05/31/22 13:39:00 EDT, CR Tablet, Partial fill upon patient request if the prescription is for a schedule II opioid drug. Start Date: 05/31/22 Stop Date: 08/10/22 Status: Ordered ondansetron 4 mg oral tablet 1 tablet = 4 mg, By Mouth, Every 8 hours, PRN as needed for nausea/vomiting, # 15 tablet, 0 Refills, Acute 07/11/22 10:00:00 EDT, 05/31/22 13:42:00 EDT, Tablet, Partial fill upon patient request if the prescription is for a schedule II opioid drug. Start Date: 05/31/22 Stop Date: 07/11/22 Status: Ordered Tylenol 325 mg oral tablet 650 mg, 2, tablet, By Mouth, Every 6 hours, PRN, # 30 tablet, Refills 0, Tot. Refills 0, Acute 07/28/22 10:00:00 EDT, Pain , Mild, 05/31/22 13:41:00 EDT, Print Requisition, Partial fill upon patient request if the prescription is for a schedule II opi... Start Date: 05/31/22 Stop Date: 07/28/22 Status: Ordered Results Orders for Microbiology Reports Name Date Urine Culture (URINE CULTURE) 05/29/22 Microbiology Reports TEST:Urine Culture STATUS:Auth (Verified) BODY SITE: SOURCE:URINE COLLECTED DATE/TIME:05/29/22 12:45 AM Urine Culture SPECIMEN DESCRIPTION : URINE SPECIAL REQUESTS : NONE CULTURE : Mixed bacterial favian, indicative of urogenital contamination. REPORT STATUS : FINAL 05/31/2022 Vital Signs Most recent to oldest [Reference Range]: 1 2 3 Height 154 cm (05/31/22 11:08 AM) 154 cm (05/31/22 7:10 AM) 154 cm (05/30/22 3:19 PM) Weight 63.9 kg (05/29/22 4:30 AM) 66 kg (05/28/22 4:54 PM) 66 kg (05/28/22 2:17 PM) Oxygen Saturation [94-100 %] 96 % (7/21/22 7:10 AM) 98 % (05/31/22 4:00 AM) 98 % (05/30/22 8:00 PM) Pulse Rate [55-90 bpm] 75 bpm (05/31/22 7:10 AM) 69 bpm (05/31/22 4:00 AM) 62 bpm (05/30/22 8:00 PM) Body Mass Index [18.5-24.99] 26.94 *H* (05/29/22 4:30 AM) Blood Pressure [90-138/55-84 mm Hg] 176/84mm Hg *H* (05/31/22 11:08 AM) 162/100mm Hg *H* (05/31/22 7:10 AM) 128/83mm Hg (05/31/22 4:00 AM) Respiratory Rate [16-30 br/min] 20 br/min (05/31/22 3:00 PM) 19 br/min (05/31/22 2:11 PM) 20 br/min (05/31/22 12:00 PM) Temperature [96.8-100.4 DegF] 97.7 DegF (05/31/22 7:10 AM) 98.3 DegF (05/31/22 4:00 AM) 98.1 DegF (05/30/22 8:00 PM) Mode of Delivery (Oxygen) Room air (05/31/22 7:10 AM) Room air (05/30/22 8:00 PM) Room air (05/30/22 3:19 PM) Blood pressure sites Arm, left (05/31/22 11:08 AM) Arm, right (05/31/22 7:10 AM) Arm, left (05/31/22 4:00 AM) Temperature Route Oral (05/31/22 7:10 AM) Oral (05/31/22 4:00 AM) Oral (05/30/22 8:00 PM) Dry Weight 66 kg (05/28/22 4:54 PM) 66 kg (05/28/22 2:17 PM) Weight Obtained Via Bed scale (05/29/22 4:30 AM) Social History Social History Type Response Smoking Status Use: 4 or less cigar ettes(less than 1/4 pack)/day in last 30 days;5-9 cigarettes (between 1/4 to 1/2 pack)/day in last 30 days entered on: 05/03/22 Sex
--- OUTSIDE RECORDS SUMMARY | 2024-06-22 16:38 | XMS_ITS | Continuity of Care Document ---
Author Organization [facility] ter Address [address] [place] [id number]- Care Team Providers Care Optical Effects Line Up Person Name Role Phone Not on Staff, PCP Primary Care Physician Unavail able Encounter [facility] [place] Date(s): 11/20/23 - 11/21/[address] [address]- Discharge Disposition: A-D/C Home Attending Physician: Margret Gray MD Admitting Physician: Margret Gray MD Referring Physician: Not on Staff, Referring [...] opioid drug. Start Date: 06/19/22 Status: Ordered MorPHINE Inj 4 mg, Injection, IV Push Slowly, Once, Routine, 11/20/23 19:00:00 EST, Stop date 11/20/23 19:00:00 EST Start Date: 11/20/23 Stop Date: 11/20/23 Status: Completed MorPHINE Inj 4 mg, Injection, IV Push Slowly, Once, STAT, 11/20/23 22:06:00 EST, Stop date 11/20/23 22:06:00 EST Start Date: 11/20/23 Stop Date: 11/20/23 Status: Completed nitrofurantoin macrocrystals By Mouth, 4 times a day, Maintenance, Take on capsule ever Sat, and Saturday before bedtime., 06/19/22 17:00:00 EDT Start Date: 06/19/22 Status: Ordered Results Radiology Reports * Exam Date Time Procedure Performing Provider Status 11/20/23 8:[address] Abd/Pelvis W/ IV Contrast Only Nicolle Doyle; Auth (Verified) Notes: (CT Abd/Pelvis W/ IV Contrast Only) Reason For Exam: RLQ abdominal pain;Other: RESULT: CT Abd/Pelvis W/ IV Contrast Only CT Abd/Pelvis W/ IV Contrast Only Hx of Present Illness: Patient reports RLQ abd pain started yesterday afternoon, N V started today.Reports urinary frequency with dark colored urine. Has been having chills.; Reason: Other:; RLQ abdominal pain; Clinical Question(s): Appendicitis; Order Comment: TECHNIQUE: Spiral CT through the abdomen and pelvis with IV contrast formatted in 3 planes. 100 cc of Omnipaque 300 was administered intravenously. This study was performed without oral contrast. Weight-based protocol using automatic tube modulation was used to optimize exposure parameters. 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 Visualized Chest: Minimal linear atelectasis in the right middle lobe. Otherwise, clear lungs. No pleural effusion. The heart is normal in size. No pericardial effusion. Diaphragm: Normal. Liver: Normal. Gallbladder: No CT evidence of gallbladder pathology. Bile ducts: No biliary ductal dilation. Spleen: Normal. Pancreas: Normal. Adrenal glands: Normal. Kidneys and ureters: No hydronephrosis, stones, or suspicious masses. Small hypodensities that are too small to characterize are noted, requiring no dedicated follow up. Bladder: Normal. Reproductive organs: A 2.2 cm right paraovarian cyst, unchanged from 09/17/2022 not requiring any further follow-up. Normal uterus and bilateral ovaries.. 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 Normal caliber small and largebowel without evidence of obstruction or inflammation. Fluid-filled loops of small and large bowel extending to the rectum. Appendix: Normal. (Series 201, image 88) Peritoneum and retroperitoneum: No ascites or pneumoperitoneum. No omental or mesenteric lesions. Lymph nodes: There are a few prominent lymph nodes within the retroperitoneum with the largest at level of the midpole of the left kidney measuring 1.4 x 1 cm. Blood vessels: Normal. No aneurysm. No evidence of venous thrombosis. Abdominal and pelvic wall: Unremarkable. Bones: No acute abnormality. IMPRESSION: Likely enteritis. A few prominent retroperitoneal lymph nodes, not significantly changed from previous exam. 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 An actionable message (Bartholomew) has been communicated via the Upplication system on 11/20/2023 8:28 PM, Message ID [id number]. I have personally reviewed the images and I agree with this report. WSN: [id number] Ordering Physician: Monique Parks Dictated By: Heraclio Mack MD Dictated Date/Time: 11/20/23 8:28 pm Reviewed By: Sarah Schneider MD Signed By: Sarah Schneider MD Signed Date/Time: 11/20/23 8:33 pm Transcribed By: FABI Transcribed Date/Time: 11/20/23 8:19 pm Vital Signs Most recent to oldest [Reference Range]: 1 2 3 Height 163 cm (11/20/23 8:27 PM) 163 cm (11/20/23 7:28 PM) 163 cm (11/20/23 2:55 PM) Oxygen Saturation [94-100 %] 100 % (11/21/23 2:35 AM) 100 % (11/20/23 8:27 PM) 100 % (11/20/23 5:48 PM) Pulse Rate [55-90 bpm] 84 bpm (11/21/23 2:35 AM) 77 bpm (11/20/23 8:27 PM) 91 bpm *H* (11/20/23 5:48 PM) Blood Pressure [90-138/55-84 mm Hg] 131/91mm Hg (11/21/23 2:35 AM) 173/82mm Hg *H* (11/20/23 8:27 PM) 166/117mm Hg *H* (11/20/23 5:48 PM) Respiratory Rate [16-30 br/min] 18 br/min (11/21/23 2:35 AM) 20 br/min (11/20/23 10:18 PM) 20 br/min (11/20/23 10:05 PM) Temperature [96.8-100.4 DegF] 98.6 DegF (11/21/23 2:35 AM) 98.9 DegF (11/20/23 5:48 PM) 98.5 DegF (11/20/23 1:47 PM) Mode of Delivery (Oxygen) Room air (11/21/23 2:35 AM) Room air (11/20/23 8:27 PM) Room air (11/20/23 5:48 PM) Blood pressure sites Arm, right (11/20/23 8:27 PM) Arm, left (11/20/23 5:48 PM) Arm, left (11/20/23 1:47 PM) Temperature Route Oral (11/21/23 2:35 AM) Oral (11/20/23 5:48 PM) Oral (11/20/23 1:47 PM) Dry Weight 75 kg (11/20/23 8:27 PM) 75 kg (11/20/23 7:28 PM) 75 kg (11/20/23 2:55 PM) Dry Weight Obtained Via Patient/family s tated (11/20/23 1:47 PM) Social History Social History Type Response Smoking Status Use: 4 or less cigar ettes(less than 1/4 pack)/day in last 30 days;5-9 cigarettes (between 1/4 to 1/2 pack)/day in last 30 days entered on: 05/03/22 Sex EKG study * Event Display: EKG Authored Date: * Event Display: ECG 12-Lead Authored Date: Please click on pdf link to open report * Event Display: ECG 12-Lead Authored Date: Ventricular Rate: 89 BPM Atrial Rate: 89 BPM P-R Interval: 136 ms QRS Duration: 74 ms Q-T Interval: 426 ms QTC Calculation(Bazett): 518 ms P [place]: 61 degrees R [place]: 58 degrees T [place]: 21 degrees Normal sinus rhythm Minimal voltage criteria for LVH, may be normal variant ( Sokolow-Jaeger ) Nonspecific ST abnormality Abnormal ECG When compared with ECG of 28-MAY-2022 15:08, ST more depressed in Inferior leads Nonspecific T wave abnormality now evident in Inferior leads T wave inversion no longer evident in Lateral leads Confirmed by MICKY BASSETT MD ([id number]) on 11/20/2023 3:24:57 PM [place]: MICKY BASSETT MD Patient Care team information Care Team Personnel Name: Ibis Ghosh RN Position: S RN Member Role: Primary Care Nurse Name: Jolly Galo RN Position: S RN Member Role: Primary Care Nurse Name: Not on Staff, PCP Position: [facility] Physician (General Medicine) Member Role: PCP Name: Shilpa Temple RN Position: [facility] RN Member Role: Primary Care Nurse Name: Carmen Gandara RN Position: [facility] RN Member Role: Primary Care Nurse Name: Miguel Campa Position: [facility] ED TA [facility] Member Role: Artillery Meteorological Man Name: Margret Gray MD Position: [facility] ED Medicine MD Member Role: ED Attending Physician Address: Address: [address] [place] [address]- Name: Juliette Chao DO Position: [facility] Resident Member Role: Resident Address: Address: [address] [place] [address] Name: John Lorenzana RN Position: [facility] ED RN W/OE and Tasks Member Role: Patient Care Provider Name: Alyssa Lazar RN Position: [facility] ED RN W/OE and Tasks Member Role: Patient Care Provider Care Team Related Persons Name: VIJAY MANNY Address: home [address] [place] [address]
--- OUTSIDE RECORDS SUMMARY | 2024-06-22 16:38 | XMS_ITS | Continuity of Care Document ---
Author Organization [facility] ter Address [address] [place] [address]- Care Team Providers Care Cilnical Scientist Name Role Phone Navi Real MD Primary Care Physician [phone] [facility] [place] Date(s): 04/13/21 - 07/07/[address] [address]- Attending Physician: Navi Real MD Admitting Physician: Navi Real MD Referring Physician: Navi Real MD Allergies, Adverse Reactions, Alerts Substance Reaction Severity Status amoxicillin Active Medications traZODone 100 mg oral tablet 100 mg, 1, tablet, By Mouth, Daily at bedtime, Refills 0, Maintenance, 03/26/18 22:30:04 EDT Start Date: 03/26/18 Status: Ordered Zoloft 100 mg oral tablet 1 tablet = 100 mg, By Mouth, Daily at bedtime, # 30 tablet, 0 Refills, Maintenance, 03/26/18 22:30:15 EDT, Tablet Start Date: 03/26/18 Status: Ordered
--- OUTSIDE RECORDS SUMMARY | 2024-06-22 16:39 | XMS_ITS | Continuity of Care Document ---
Author Organization [facility] ter Address [address] [place] [address]- Care Team Providers Care Warehouse Team Leader Name Role Phone Farhan THOMAS, Navi Velasquez Primary Care Physician [phone] Encounter [facility] [place] Date(s): 02/01/22 - 02/03/[address] [address] Encounter Diagnosis Pyelonephritis(Final) - 02/01/22 Discharge Disposition: A-D/C Home Attending Physician: Lydia Briscoe MD Admitting Physician: Kimberley Marquis MD Referring Physician: Not on Staff, Referring MD Allergies, Adverse Reactions, Alerts Substance Reaction Severity Status amoxicillin Active Medications cephalexin monohydrate 500 mg oral capsule 1 capsule = 500 mg, By Mouth, 4 times a day, for 7 days, # 28 capsule, 0 Refills, Acute 02/07/22 18:54:00 EDT, 01/31/22 18:54:00 EDT, Capsule, [id number], Partial fill upon patient request ifthe prescription is for a schedule II opioid drug. Start Date: 01/31/22 Stop Date: 02/07/22 Status: Ordered oxyCODONE 5 mg oral tablet 5 mg, Tablet, By Mouth, Every 6 hours, PRN for Pain , Moderate, Routine, 02/02/22 16:08:00 EDT Start Date: 02/02/22 Stop Date: 02/03/22 Status: Discontinued Toradol Inj 15 mg, Injection, IV Push Slowly, 02/03/22 10:00:00 EDT, Stop date 02/03/22 10:00:00 EDT Start Date: 02/03/22 Stop Date: 02/03/22 Status: Completed Tylenol 325 mg oral tablet 650 mg, Tablet, By Mouth, 02/03/22 10:17:00 EDT Start Date: 02/03/22 Stop Date: 02/03/22 Status: Completed Results Orders for Microbiology Reports Name Date Blood Culture 02/01/22 Blood Culture #2 02/01/22 Urine Culture (URINE CULTURE) 01/31/22 Microbiology Reports TEST:Blood Culture STATUS:Unauthenticated BODY SITE: SOURCE:Blood COLLECTED DATE/TIME:02/01/22 10:19 AM Blood Culture SPECIMEN DESCRIPTION : BLOOD R ARM SPECIAL REQUESTS : NONE CULTURE : NO GROWTH AFTER 48 HOURS REPORT STATUS : PRELIMINARY REPORT TEST:Blood Culture, Second Order STATUS:Unauthenticated BODY SITE: SOURCE:Blood COLLECTED DATE/TIME:02/01/22 10:19 AM Blood Culture, Second Order SPECIMEN DESCRIPTION : BLOOD L ARM SPECIAL REQUESTS : NONE CULTURE : NO GROWTH AFTER 48 HOURS REPORT STATUS : PRELIMINARY REPORT TEST:Urine Culture STATUS:Unauthenticated BODY SITE: SOURCE:URINE COLLECTED DATE/TIME:01/31/22 2:17 PM Urine Culture SPECIMEN DESCRIPTION : URINE SPECIAL REQUESTS : NONE CULTURE : >100,000 COL/ML STAPHYLOCOCCUS AUREUS. This isolate was identified using Maldi-TOF system >100,000 COL/ML STREPTOCOCCUS AGALACTIAE SERO GROUP B This isolate was identified using Maldi-TOF system SUSCEPTIBILITY TESTING NOT ROUTINELY PERFORMED ON THIS ISOLATE. IF THIS PATIENT IS , PLEASE REFER TO ACOG GUIDELINES (2002) FOR APPROPRIATE SCREENING AND MANAGEMENT OF COLONIZED WOMEN. REPORT STATUS : PRELIMINARY REPORT Vital Signs Most recent to oldest [Reference Range]: 1 2 3 Oxygen Saturation [94-100 %] 98 % (02/03/22 7:17 AM) 99 % (02/03/22 12:58 AM) 100 % (02/02/22 7:51 PM) Pulse Rate [55-90 bpm] 88 bpm (02/03/22 7:17 AM) 87 bpm (02/03/22 12:58 AM) 76 bpm (02/02/22 7:51 PM) Blood Pressure [90-138/55-84 mm Hg] 129/86mm Hg (02/03/22 7:17 AM) 154/96mm Hg *H* (02/03/22 12:58 AM) 188/93mm Hg *H* (02/02/22 7:51 PM) Respiratory Rate [16-30 br/min] 17 br/min (02/03/22 11:41 AM) 18 br/min (02/03/22 11:11 AM) 17 br/min (02/03/22 8:39 AM) Temperature [96.8-100.4 DegF] 98.4 DegF (02/03/22 7:17 AM) 98.6 DegF (02/03/22 12:58 AM) 97.9 DegF (02/02/22 7:51 PM) Liters per Minute 0 L/min (02/01/22 10:33 AM) Mode of Delivery (Oxygen) Room air (02/03/22 7:17 AM) Room air (02/03/22 12:58 AM) Room air (02/02/22 7:51 PM) Blood pressure sites Arm, right (02/03/22 7:17 AM) Arm, right (02/03/22 12:58 AM) Arm, right (02/02/22 7:51 PM) Temperature Route Oral (02/03/22 7:17 AM) Oral (02/03/22 12:58 AM) Oral (02/02/22 7:51 PM)
--- OUTSIDE RECORDS SUMMARY | 2024-06-22 16:39 | XMS_ITS | Continuity of Care Document ---
Author Organization [facility] Address [address] [place] [address]- Care Team Providers Care Pattern Marking Supervisor Name Role Phone Not on Staff, PCP Primary Care Physician Unavail able Encounter [facility] Date(s): 06/19/22 - 07/19/22 [facility] [address] [place] [address]- Attending Physician: Tyrese Reyes Admitting Physician: Tyrese Reyes Referring Physician: Tyrese Reyes Allergies, Adverse Reactions, Alerts Substance Reaction Severity Status amoxicillin Active traMADol MARION - Difficulty in breathing Active Immunizations Given and Recorded Vaccine Date Status Refusal Reason SARS-CoV-2 (COVID-19) mRNA BNT-162b2 vac 09/07/21 Recorded SARS-CoV-2 (COVID-19) mRNA BNT-162b2 vac 08/02/21 Recorded influenza virus vaccine, inactivated 09/06/21 Peng rded influenza virus vaccine, inactivated 11/29/19 Peng rded influenza virus vaccine, inactivated 11/05/17 Peng rded Medications Dulcolax 5 mg oral enteric coated tablet 2 tablet = 10 mg, By Mouth, Daily, PRN as needed for constipation, # 30 tablet, 0 Refills, Acute 08/10/22 10:00:00 EDT, 05/31/22 13:39:00 EDT, CR Tablet, Partial fill upon patient request if the prescription is for a schedule II opioid drug. Start Date: 05/31/22 Stop Date: 08/10/22 Status: Ordered fosfomycin 3 g oral granule for reconstitution 1 each = 3 Gm, By Mouth, Once, # 1 capsule, 1 Refills, Soft Stop, 06/19/22 18:18:00 EDT, [id number], Partial fill upon patient request if the prescription is for a schedule II opioid drug., 154, cm, 06/19/22 17:31:00 EDT, Height, 66, kg, 05/28... Start Date: 06/19/22 Status: Ordered methenamine hippurate 1 gm oral tablet 1 tablet = 1 Gm, By Mouth, 2 times a day, 0 Refills, Maintenance, 06/19/22 16:59:00 EDT, Partial fill upon patient request if the prescription is for a schedule II opioid drug. Start Date: 06/19/22 Status: Ordered nitrofurantoin macrocrystals By Mouth, 4 times a day, Maintenance, Take on capsule ever Sat, and Saturday before bedtime., 06/19/22 17:00:00 EDT Start Date: 06/19/22 Status: Ordered Tylenol 325 mg oral tablet 650 mg, 2, tablet, By Mouth, Every 6 hours, PRN, # 30 tablet, Refills 0, Tot. Refills 0, Acute 07/28/22 10:00:00 EDT, Pain , Mild, 05/31/22 13:41:00 EDT, Print Requisition, Partial fill upon patient request if the prescription is for a schedule II opi... Start Date: 05/31/22 Stop Date: 07/28/22 Status: Ordered Social History Social History Type Response Smoking Status Use: 4 or less cigar ettes(less than 1/4 pack)/day in last 30 days;5-9 cigarettes (between 1/4 to 1/2 pack)/day in last 30 days entered on: 05/03/22 Sex Care Team Personnel Name: Not on Staff, PCP
[2024-06-22] MEDS: 0.9 % Sodium Chloride 1,000 ML 999 ML IV (17:06)
[2024-06-22] MEDS: diphenhydrAMINE HCL 50 MG/ML VIAL 25 MG IVPUSH (17:10)
[2024-06-22] MEDS: Metoclopramide HCl 10 MG/2 ML VIAL IVPUSH ×2 (17:10→22:23)
[2024-06-22] MEDS: Morphine Sulfate 4 MG/ML CARTRIDGE IVPUSH ×2 (17:10→18:57)
[2024-06-22 17:11] LABS: Basophils Percent Auto 0.2 % (0-2); Hematocrit 37.6 % (37.0-47.0); Hemoglobin 11.3 g/dl (12.0-16.0); Imm Gran Abs Auto 0.05 X10*3/uL (0.00-0.03); Imm Gran Pct Auto 0.5 % (0.0-0.4); Lymphocytes Absolute Auto 0.5 X10*3/uL (1.2-4.9); Lymphocytes Percent Auto 5.1 % (20-40); MANUAL DIFF FLAG SCAN; Mean Corpuscular HGB Conc 30.1 g/dl (31.0-35.0); Mean Corpuscular Hemoglobin 23.6 pg (27.0-33.0); Mean Corpuscular Volume 78.7 fL (80.0-98.0); Mean Platelet Volume 12.6 fL (9.4-12.3); Monocytes Absolute Auto 0.2 X10*3/uL (0.1-1.2); Monocytes Percent Auto 2.3 % (2-11); Neutrophils Absolute Auto 9.6 x10*3/uL (2.0-8.3); Neutrophils Percent Auto 91.9 % (45-73); Platelet Count 192 X10*3/uL (160-400); Red Blood Count 4.78 X10*6/uL (4.20-5.50); Red Cell Distribution Width 17.8 % (11.0-16.0); SCAN SMEAR FLAG 1; White Blood Count 10.4 X10*3/uL (4.8-10.8)
[2024-06-22 17:28] LABS: SLIDE REVIEW VERIFIED
[2024-06-22 17:31] LABS: Alanine Aminotransferase 12 U/L (0-31); Albumin Level 4.7 g/dL (3.5-5.0); Alkaline Phosphatase 56 U/L (39-117); Anion Gap 17 (12-20); Aspartate Amino Transferase 16 U/L (5-31); Bilirubin Total 0.5 mg/dL (0.0-1.0); Blood Urea Nitrogen 10 mg/dL (9-16); Calcium 9.9 mg/dL (8.4-10.2); Carbon Dioxide 20 mmol/L (22-29); Chloride 108 mmol/L (96-108); Creatinine Clr Calc Pharmacy 83.8; Estimated Glomerular Filt Rate > 60; Glucose Random 136 mg/dL (60-115); Magnesium 1.9 mg/dL (1.6-2.6); Potassium 3.6 mmol/L (3.3-5.1); Sodium 141 mmol/L (135-145); Total Protein 8.9 g/dL (6.5-8.0)
[2024-06-22 17:36] LABS: Lactic Acid 3.2 mmol/L (0.5-2.0)
[2024-06-22 17:46] LABS: HCG Quantitative < 2 mIU/mL
[2024-06-22 18:02] LABS: Influenza A PCR NEGATIVE (Negative); Influenza B PCR NEGATIVE (Negative); Resp Syncy Virus RNA Qual PCR NEGATIVE (Negative); SARS COV2 PCR INHOUSE NEGATIVE (Negative)
[2024-06-22 18:57] VITALS: BP 161/96; PULSE 80; RESP 16; O2SAT 100
[2024-06-22 19:01] LABS: Reflex Lactate? Lactic Acid Added
[2024-06-22 19:16] LABS: Appearance Urine Hazy; Color Urine Yellow; Glucose Urine UA Negative (Negative); Leukocyte Esterase Urine Negative (Negative); Nitrite Urine Positive (Negative); Specific Gravity - Urine 1.015 (1.005-1.025); UMIC TRIGGER UACC YES; Urine Blood Negative (Negative); Urine Ketones 15 mg/dL (Negative); Urine Protein Negative (Neg-Trace)
[2024-06-22 19:17] LABS: Amphetamine Screen Urine Not Detected (Not Detect); Barbiturates, Urine Not Detected (Not Detect); Benzodiazepines Screen Urine Not Detected (Not Detect); Buprenorphine Scr Not Detected (Not Detect); Cannabinoid Screen Urine POSITIVE (Not Detect); Cocaine Screen Urine Not Detected (Not Detect); Fentanyl, urine POSITIVE (Not Detect); Methadone Screen, Urine Not Detected (Not Detect); Opiate Screen Urine POSITIVE (Not Detect); Oxycodone Screen Urine Not Detected (Not Detect); Phencyclidine Screen Urine Not Detected (Not Detect)
[2024-06-22] MEDS: iohexoL 350 MG/ML 100 ML INFUS..BTL 85 ML IV (19:19)
[2024-06-22 19:54] LABS: RBC Urine 0-2 /HPF (0-2); UACC Culture Trigger YES
[2024-06-22 19:55] LABS: Bacteria Urine 2+ (None Seen)
[2024-06-22 20:03] LABS: Hyaline Casts Urine 0-2 /LPF (0-2)
[2024-06-22 20:36] LABS: ~Lactic Acid-LAB USE ONLY 1.7 mmol/L (0.5-2.0)
[2024-06-22 21:48] VITALS: BP 115/74; PULSE 72; RESP 17; TEMP 37.2; O2SAT 100
[2024-06-22] MEDS: metroNIDAZOLE 500 MG TABLET PO (21:52)
[2024-06-22] MEDS: Doxycycline Monohydrate 100 MG CAPSULE PO (21:52)
[2024-06-22] MEDS: cefTRIAXone sodium 1 GM in 0.9 % Sodium Chloride 50 ML IV (21:52)
[2024-06-22] MEDS: Ketorolac Tromethamine 30 MG/ML VIAL IVPUSH (22:23)
[2024-06-23] VITALS: BP 111/64; PULSE 84; RESP 18; TEMP 36.9; O2SAT 99
[2024-06-23 11:33] LABS: Bacterial Vaginosis PCR POSITIVE (Negative); Candida Group PCR NOT DETECTED (Not Detect); Candida glab krusei PCR NOT DETECTED (Not Detect); Trichomonas vaginalis PCR NOT DETECTED (Not Detect)
[2024-06-23 11:40] LABS: CT PCR NOT DETECTED (Not Detect.); NG PCR NOT DETECTED (Not Detect.)
== END 2024-06-23 00:02 | disposition home or self-care (01) ==
PROVIDERS: Physician Assistant; Physician Assistant Medical; Emergency Provider Emergency Medicine
DX: R11.2 Nausea with vomiting, unspecified (principal); N73.9 Female pelvic inflammatory disease, unspecified; E03.9 Hypothyroidism, unspecified; Z03.818 Encounter for observation for suspected exposure to other biological agents ruled out; Z79.899 Other long term (current) drug therapy
CPT/HCPCS: 0241U; 0352U; 36415; 74177; 80053; 80307; 81001; 83605; 83735; 84702; 85025; 87040; 87086; 87491; 87591; 96361; 96374; 96375; 96376; 99284; J0696; J1200; J1885; J2270; J2765; Q9967

== ENCOUNTER 2024-06-24 10:33 | Emergency (ER) | payer OTHER, SELFPAY ==
--- NOTE | 2024-06-24 10:40 | ECG_ITS ---
Test Reason : ABD PAIN Blood Pressure : / mmHG Vent. Rate : 084 BPM Atrial Rate : 084 BPM P-R Int : 116 ms QRS Dur : 086 ms QT Int : 404 ms P-R-T Axes : 067 050 051 degrees QTc Int : 477 ms Artifact in tracing Normal sinus rhythm Possible Left atrial enlargement Minimal voltage criteria for LVH, may be normal variant ( Sokolow-Jaeger ) Nonspecific ST abnormality Abnormal ECG When compared with ECG of 07-JUL-2021 11:07, No significant change was found Referred By: Kera Moreno Electronically Signed By:ALEENA JACQUES
[2024-06-24 10:51] VITALS: BP 171/84; BP 190/100; PULSE 102; PULSE 88; RESP 20; TEMP 36.8; O2SAT 100; O2SAT 99; BMI 28.0
--- NOTE | 2024-06-24 11:07 | ED_ITS ---
HPI - Abdominal Pain General Chief Complaint: Abdominal Pain Stated Complaint: ABD PAIN Source: patient and old records reviewed Mode of arrival: ambulatory Limitations: no limitations History of Present Illness ED Provider: DAVID HPI narrative: 44 yo female with PMH of polysubstance abuse though she denies this to me but her drug screen always shows opiates and fentanyl as well as some cocaine, anemia, chronic abdominal pain just seen 2 days ago for ?PID though she admits to only a little discharge and she was positive for BV which should not cause these symptoms. She was discharged on doxy and flagyl. She states she has her abdominal pain that she typicallyl has n/v has hx of daily heavy THC use, and her chronic back pain. She has been seen for the same several times. She states she is not in withdrawal and does not use MAT therapy. No fevers. MD elicited complaint: abdominal pain Pertinent past history: other (chronic abdominal pain and n/v) Onset (ago): day(s) (3) Pain Consistency: constant Location: epigastric and periumbilical Severity: severe Quality: aching Radiation: none Migration to: other (low back) Exacerbating factors: eating and movement Relieving factors: nothing Context: history of similar episodes Associated symptoms: nausea and vomiting Related Data Home Medications ?Medication ?Instructions ?Recorded ?Confirmed methenamine hippurate 1 gram tablet 1 tab PO DAILY 07/25/21 09/06/21 Previous Rx's ?Medication ?Instructions ?Recorded ascorbic acid (vitamin C) 1,000 mg 1 g PO DAILY chronic uti 90 days 05/11/21 tablet #90 tabs ondansetron 4 mg disintegrating 4 mg PO Q8H 4 days #12 tabs 01/23/22 tablet nitrofurantoin 100 mg PO Q12H 5 days #10 caps 04/21/22 monohydrate/macrocrystals 100 mg capsule (Macrobid) ondansetron 4 mg disintegrating 4 mg PO Q6-8H PRN nausea and 04/22/22 tablet vomiting #10 tabs doxycycline hyclate 100 mg tablet 100 mg PO BID #28 tabs 06/22/24 metronidazole 500 mg tablet 500 mg PO Q12H #28 tabs 06/22/24 metoclopramide HCl 10 mg tablet 10 mg PO Q6H PRN nausea and 06/24/24 (Reglan) vomiting #20 tabs ondansetron 4 mg disintegrating 4 mg PO Q8H PRN nausea and 06/24/24 tablet vomiting #20 tabs promethazine 25 mg rectal 25 mg UT Q6H PRN nausea and 06/24/24 suppository vomiting #12 ea Allergies Allergy/AdvReac Type Severity Reaction Status Date / Time amoxicillin [Amoxicillin] Allergy Intermediate HIVES Verified 06/24/24 10:54 tramadol AdvReac Intermediate SOB Verified 06/24/24 10:54 Review of Systems Review of Systems Constitutional : No Weight loss, No Fever, No Chills ENT/Mouth : No sore throat, No Rhinorrhea Eyes: No Swelling, No Redness Cardiovascular : No Chest Pain, No SOB, NoEdema Respiratory : No Cough, No Sputum, No Wheezing Gastrointestinal : Positive Nausea, Positive Vomiting, no Diarrhea, positive abdominal Pain, No Hematochezia, No Melena Genitourinary : No Dysuria, No Urinary Frequency, No Hematuria, No Urgency Musculoskeletal : No joint pain, No Myalgias, No Joint Swelling Skin : No Skin Lesions, No rash Neuro : No Weakness, No Numbness, No Dizziness, No Headache Psych : No Anxiety/Panic, No Depression All other systems reviewed and are negative. [facility] Past Medical History Attestation statement: The following information was validated with the patient. Source: old records reviewed Medical History Intractable vomiting Bacteremia Acidosis, lactic Pyelonephritis Cocaine abuse Vomiting Abdominal pain Pelvic inflammatory disease UTI (urinary tract infection) Hypokalemia Hidradenitis suppurativa Complicated UTI (urinary tract infection) Cyclical vomiting Marijuana abuse Opioid abuse Hypothyroidism Pyelonephritis Abscess Surgical History Tubal ligation status Family History Family History Mother CVD (cardiovascular disease) HTN (hypertension) Maternal Grandmother High cholesterol HTN (hypertension) Maternal Grandfather Prostate cancer Other Heart disease Social History Social History Household Members: Children Housing: House Do you presently have visiting nurse or other home services: No Alcohol intake: current Alcohol intake frequency: a few times a week Alcohol type: wine and hard liquor Comment: no bm yet Patient Tobacco Use Status: Current someday Tobacco user Tobacco use type: Cigarette Cigarettes Per Day: 4 Years Smoked: 25 e-Cigarette/Vaping Use: Never Used Second Hand Smoke Exposure: No Substance Use Type: Marijuana Advance Directives: Yes Advance Directives on File: Yes Advance Directives Date on File: 01/02/21 Patient : No service: No Current occupational status: employed Physical Exam ED Vital Signs: Vital Signs - 24 hr 06/24/24 10:51 06/24/24 13:13 06/24/24 16:47 Temperature 98.3 F Pulse Rate 88 87 74 Respiratory Rate 20 19 16 Blood Pressure 171/84 H 157/102 H 187/94 H Pulse Oximetry 100 100 100 Oxygen Delivery Method Room Air Room Air Room Air BMI result Body Mass Index 28.0 Appearance: Alert. Oriented X3. Mild acute distress. Eyes: Pupils equal, round and reactive to light. ENT: Pharynx normal. Neck: Normal inspection. Neck supple. CVS: Normal heart rate and rhythm. Pulses normal. Respiratory: No respiratory distress. Breath sounds normal. Abdomen: Soft and moderate lower ttp no rebound Skin: Skin warm and clammy pale skin color. Normal skin turgor. Extremities: No lower extremity edema. No calf ttp Neuro: Oriented X 3. No motor deficit. No sensory deficit. Medical Decision Making Medical Decision Making MDM Narrative: 44 yo female with PMH of polysubstance abuse though she denies this to me but her drug screen always shows opiates and fentanyl as well as some cocaine, anemia, chronic abdominal pain here with c/o recurrent pain her symptoms are typical of her n/v and pain I have low susp for PID and she just had CT scan which did not show TOA. At this time I have ordered, IVF, nausea medications and I am going to ask addiction medicine to see the patient given her chronic drug screens and my concern for actual withdrawal. Differential Diagnosis Differential Diagnoses: The differential diagnosis associated with the presentation includes gastritis, withdrawal, low suspicion for PID - BV no sig drainage, recurrent cyclical vomiting Admission/Observation Consideration of admission/observation: Escalation of care including admission/observation considered patient feels much better at this time will continue with flagyl and DC home with nausea medications plan to follow up with [facility] office Consult Healthcare Provider Management of the patient was discussed with: Consultant Dawn CLINICAL CYTOPATHOLOGIST start with methadone 10mg patient threw up initial 10mg reportedly may need to redose Lab Data MDM Lab Attestation statement: I reviewed the patient's lab results. 06/24/24 11:07 06/24/24 11:07 Labs: Lab Results 06/24/24 06/24/24 Range/Units 11:07 15:09 WBC 6.5 (4.8-10.8) X10*3/uL RBC 4.54 (4.20-5.50) X10*6/uL Hgb 10.8 L (12.0-16.0) g/dl Hct 34.5 L (37.0-47.0) % MCV 76.0 L (80.0-98.0) fL MCH 23.8 L (27.0-33.0) pg MCHC 31.3 (31.0-35.0) g/dl RDW 17.9 H (11.0-16.0) % Plt Count 180 (160-400) X10*3/uL MPV 12.0 (9.4-12.3) fL Immature Gran % (Auto) 0.8 H (0.0-0.4) % Neut % (Auto) 71.5 (45-73) % Lymph % (Auto) 18.3 L (20-40) % [place]th[place]omew % (Auto) 7.7 (2-11) % Eos % (Auto) 1.2 (0-4) % Baso % (Auto) 0.5 (0-2) % Lymph # (Auto) 1.2 (1.2-4.9) X10*3/uL [place]w # (Auto) 0.5 (0.1-1.2) X10*3/uL Eos # (Auto) 0.1 (0.0-0.4) X10*3/uL Baso # (Auto) 0.0 (0.0-0.2) X10*3/uL Abs Immat Gran (auto) 0.05 H (0.00-0.03) X10*3/uL Absolute Neuts (auto) 4.7 (2.0-8.3) x10*3/uL Absolute Nucleated RBC 0.000 (0.0-0.012) X10*3/uL Nucleated RBC % (auto) 0.0 (0.0-0.2) /100WBC Smear Tech's Comments VERIFIED Sodium 140 (135-145) mmol/L Potassium 3.7 (3.3-5.1) mmol/L Chloride 110 H (96-108) mmol/L Carbon Dioxide 18 L (22-29) mmol/L Anion Gap 16 (12-20) BUN 15 (9-16) mg/dL Creatinine 0.93 (0.5-1.4) mg/dL Estim Creat Clear Calc 74.5 Estimated GFR > 60 Random Glucose 124 H (60-115) mg/dL Calcium 9.7 (8.4-10.2) mg/dL Magnesium 1.9 (1.6-2.6) mg/dL Total Bilirubin 0.4 (0.0-1.0) mg/dL Direct Bilirubin 0.1 (0.0-0.5) mg/dL AST 16 (5-31) U/L ALT 11 (0-31) U/L Alkaline Phosphatase 49 (39-117) U/L Total Protein 8.3 H (6.5-8.0) g/dL Albumin 4.4 (3.5-5.0) g/dL Beta HCG, Quant < 2 mIU/mL Urine Color Yellow Urine Appearance Clear Urine pH 7.0 (5.0-9.0) Ur Specific [place] 1.015 (1.005-1.025) Urine Protein Negative (Neg-Trace) mg/dL Urine Glucose (UA) Negative (Negative) mg/dL Urine Ketones Negative (Negative) mg/dL Urine Blood Negative (Negative) Urine Nitrite Negative (Negative) Ur Leukocyte Esterase Trace H (Negative) Urine RBC 0-2 (0-2) /HPF Urine WBC 0-5 (0-5) /HPF Ur Squamous Epith Cells 6-10 (0-2) /HPF Urine Bacteria None Seen (None Seen) Hyaline Casts 0-2 (0-2) /LPF Urine Opiates Screen Not Detected (Not Detect) Ur Buprenorphine Scrn Not Detected (Not Detect) ng/mL Ur Oxycodone Screen Not Detected (Not Detect) ng/mL Urine Methadone Screen Not Detected (Not Detect) ng/mL Urine Fentanyl Screen POSITIVE H (Not Detect) Ur Barbiturates Screen Not Detected (Not Detect) Ur Phencyclidine Scrn Not Detected (Not Detect) Ur Amphetamines Screen Not Detected (Not Detect) U Benzodiazepines Scrn Not Detected (Not Detect) Urine Cocaine Screen Not Detected (Not Detect) U Marijuana (THC) Screen POSITIVE H (Not Detect) Independent Interpretation I performed an independent interpretation of an: EKG Interpretation: Rate: 84 Rhythm: NSR [place]: normal Normal P waves. Normal PARRISH. Normal QRS complex. ST T wave : inverted t waves V1 and V2, no CHERIE qTC: 477 prior studies: no sig change from priors The study has been interpreted contemporaneously by me. . Independent Historian Clinical information obtained from an independent historian. History obtained from or confirmed by: EMS External Record Review External record reviewed: Inpatient record Medications Administered Discontinued Medications Generic Name Dose Route Start Last Admin Trade Name Freq PRN Reason Stop Dose Admin Diphenhydramine HCl 50 mg 06/24/24 12:26 06/24/24 12:48 Diphenhydramine Hcl 50 Mg/Ml Vial IVPUSH 06/24/24 12:27 50 mg ONCE ONE Administration Droperidol 1.25 mg 06/24/24 10:46 06/24/24 11:15 Droperidol 5 Mg/2 Ml Vial IVPUSH 06/24/24 10:47 1.25 mg ONCE ONE Administration Lactated Ringer's 1,000 mls @ 999 mls/hr 06/24/24 10:46 06/24/24 16:05 Lr IV 06/24/24 11:46 Infused .Q1H1M ONE Infusion Lorazepam 1 mg 06/24/24 10:46 06/24/24 11:15 Lorazepam 2 Mg/Ml Vial IVPUSH 06/24/24 10:47 1 mg STAT STA Administration Methadone HCl 10 mg 06/24/24 13:00 06/24/24 13:12 Methadone Hcl 20 Mg/2 Ml Oral.Conc PO 06/24/24 13:01 10 mg ONCE ONE Administration Methadone HCl 10 mg 06/24/24 14:04 06/24/24 14:16 Methadone Hcl 20 Mg/2 Ml Oral.Conc PO 06/24/24 14:05 10 mg ONCE ONE Administration Methadone HCl 20 mg 06/24/24 15:42 06/24/24 16:05 Methadone Hcl 20 Mg/2 Ml Oral.Conc PO 06/24/24 15:43 20 mg ONCE ONE Administration Ondansetron HCl 4 mg 06/24/24 13:16 06/24/24 13:23 Ondansetron Hcl 4 Mg/2 Ml Vial IVPUSH 06/24/24 13:17 4 mg ONCE ONE Administration Critical Care Time Critical Care Time Critical Care Time: Yes Total Critical Care Time: 60 Attestation: IVF, repeat medications, repeat IV nausea medications consult, repeat methadone dosing I attest to this time spent taking care of the patient Discharge Plan Discharge Clinical Impression: Polysubstance (including opioids) dependence with physiol dependence Abdominal pain Qualifiers: Abdominal location: generalized Qualified Code(s): R10.84 - Generalized abdominal pain Nausea & vomiting Qualifiers: Vomiting type: unspecified Qualified Code(s): R11.2 - Nausea with vomiting, unspecified Patient Disposition: Home, Self-Care Instructions: Acute Nausea and Vomiting (ED), Abdominal Pain (ED), Opioid Use Disorder (ED) Additional Instructions: return for fevers, worsening pain, vomiting or any other concerns stay hydrated follow up tomorrow continue flagyl only take suppository as last resort for nausea/vomiting [facility] AM JUST WALK IN FOR NEXT DOSE THEY ARE EXPECTING [facility] LAST DOSE OF METHADONE 06/24/24 [facility] 30MG OF METHADONE Prescriptions: New promethazine 25 mg suppository 25 mg UT Q6H PRN (Reason: nausea and vomiting) Qty: 12 0RF ondansetron 4 mg tablet,disintegrating 4 mg PO Q8H PRN (Reason: nausea and vomiting) Qty: 20 0RF metoclopramide HCl [Reglan] 10 mg tablet 10 mg PO Q6H PRN (Reason: nausea and vomiting) Qty: 20 0RF No Action ascorbic acid (vitamin C) 1,000 mg tablet 1 g PO DAILY 90 Days Qty: 90 0RF methenamine hippurate 1 gram tablet 1 tab PO DAILY ondansetron 4 mg tablet,disintegrating 4 mg PO Q8H 4 Days Qty: 12 0RF nitrofurantoin monohyd/m-cryst [Macrobid] 100 mg capsule 100 mg PO Q12H 5 Days Qty: 10 0RF Rx Instructions: must administer with a meal/food ondansetron 4 mg tablet,disintegrating 4 mg PO Q6-8H PRN (Reason: nausea and vomiting) Qty: 10 0RF doxycycline hyclate 100 mg tablet 100 mg PO BID Qty: 28 0RF metronidazole 500 mg tablet 500 mg PO Q12H Qty: 28 0RF Print Language: Georgian
[2024-06-24] MEDS: LORazepam 2 MG/ML VIAL 1 MG IVPUSH (11:15)
[2024-06-24] MEDS: droPERidol 5 MG/2 ML VIAL 1.25 MG IVPUSH (11:15)
[2024-06-24] MEDS: Lactated Ringers 1,000 ML 999 ML IV (11:19)
[2024-06-24 11:23] LABS: Basophils Percent Auto 0.5 % (0-2); Eosinophils Absolute Auto 0.1 X10*3/uL (0.0-0.4); Eosinophils Percent Auto 1.2 % (0-4); Hematocrit 34.5 % (37.0-47.0); Hemoglobin 10.8 g/dl (12.0-16.0); Imm Gran Abs Auto 0.05 X10*3/uL (0.00-0.03); Imm Gran Pct Auto 0.8 % (0.0-0.4); Lymphocytes Absolute Auto 1.2 X10*3/uL (1.2-4.9); Lymphocytes Percent Auto 18.3 % (20-40); MANUAL DIFF FLAG SCAN; Mean Corpuscular HGB Conc 31.3 g/dl (31.0-35.0); Mean Corpuscular Hemoglobin 23.8 pg (27.0-33.0); Monocytes Absolute Auto 0.5 X10*3/uL (0.1-1.2); Monocytes Percent Auto 7.7 % (2-11); Neutrophils Absolute Auto 4.7 x10*3/uL (2.0-8.3); Neutrophils Percent Auto 71.5 % (45-73); PLT CLUMP 1; Red Blood Count 4.54 X10*6/uL (4.20-5.50); Red Cell Distribution Width 17.9 % (11.0-16.0); SCAN SMEAR FLAG 1
[2024-06-24 11:36] LABS: Platelet Count 180 X10*3/uL (160-400); White Blood Count 6.5 X10*3/uL (4.8-10.8)
[2024-06-24 11:37] LABS: SLIDE REVIEW VERIFIED
[2024-06-24 11:38] LABS: Alanine Aminotransferase 11 U/L (0-31); Albumin Level 4.4 g/dL (3.5-5.0); Alkaline Phosphatase 49 U/L (39-117); Anion Gap 16 (12-20); Aspartate Amino Transferase 16 U/L (5-31); Bilirubin Direct 0.1 mg/dL (0.0-0.5); Bilirubin Total 0.4 mg/dL (0.0-1.0); Blood Urea Nitrogen 15 mg/dL (9-16); Calcium 9.7 mg/dL (8.4-10.2); Carbon Dioxide 18 mmol/L (22-29); Chloride 110 mmol/L (96-108); Creatinine Clr Calc Pharmacy 74.5; Estimated Glomerular Filt Rate > 60; Glucose Random 124 mg/dL (60-115); Magnesium 1.9 mg/dL (1.6-2.6); Potassium 3.7 mmol/L (3.3-5.1); Sodium 140 mmol/L (135-145); Total Protein 8.3 g/dL (6.5-8.0)
[2024-06-24 11:42] LABS: HCG Quantitative < 2 mIU/mL
[2024-06-24] MEDS: diphenhydrAMINE HCL 50 MG/ML VIAL IVPUSH (12:48)
[2024-06-24] MEDS: methADONE HCl 20 MG/2 ML ORAL.CONC 10 MG PO ×2 (13:12→14:16)
[2024-06-24 13:13] VITALS: BP 157/102; PULSE 87; RESP 19; O2SAT 100
[2024-06-24] MEDS: ondansetron HCL 4 MG/2 ML VIAL IVPUSH (13:23)
--- NOTE | 2024-06-24 13:53 | PC.NURSE ---
Pt continues with persistent nausea/vomiting, Zofran given. Attempted to admin Methadone however pt vomited shortly after. Per Dr Moreno we will re attempt pending decrease in nausea. Pt restless, LR infusing slowly d/t pt moving frequently and IV becomes kinked.
[2024-06-24 15:16] LABS: Appearance Urine Clear; Color Urine Yellow; Glucose Urine UA Negative (Negative); Leukocyte Esterase Urine Trace (Negative); Nitrite Urine Negative (Negative); Specific Gravity - Urine 1.015 (1.005-1.025); UMIC TRIGGER UACC YES; Urine Blood Negative (Negative); Urine Ketones Negative (Negative); Urine Protein Negative (Neg-Trace)
[2024-06-24 15:20] LABS: Bacteria Urine None Seen (None Seen); Hyaline Casts Urine 0-2 /LPF (0-2); RBC Urine 0-2 /HPF (0-2); WBC Urine 0-5 /HPF (0-5)
[2024-06-24 15:31] LABS: Amphetamine Screen Urine Not Detected (Not Detect); Barbiturates, Urine Not Detected (Not Detect); Benzodiazepines Screen Urine Not Detected (Not Detect); Buprenorphine Scr Not Detected (Not Detect); Cannabinoid Screen Urine POSITIVE (Not Detect); Cocaine Screen Urine Not Detected (Not Detect); Fentanyl, urine POSITIVE (Not Detect); Methadone Screen, Urine Not Detected (Not Detect); Opiate Screen Urine Not Detected (Not Detect); Oxycodone Screen Urine Not Detected (Not Detect); Phencyclidine Screen Urine Not Detected (Not Detect)
[2024-06-24] MEDS: methADONE HCl 20 MG/2 ML ORAL.CONC PO (16:05)
--- NOTE | 2024-06-24 16:08 | HO.ADDICT_ITS ---
History of Present Illness Date of Service: 06/24/2024 Chief Complaint: ABD PAIN Reason for Consult: ? opioid use disorder Requesting physician: Kera Moreno Discussed with referring provider: Yes Sources of Information: patient interviewed and chart reviewed HPI Narrative: Patient is a 44 year old female who presented to ED with abdominal pain and vomiting. She was here 2 days ago with similar presentation Has been to ED several times and each time UDS +opiates, however patient denies use. Today patient seen by t/w and paralegal legal secretary in ED She reports taking percocets from her friend almost daily --twice a day. Unclear for how long. Guarded when discussing use, but eventually acknowledges that fentanyl is what she is taking and what is contributing to or causing her current sx Shes agreeable to methadone Past Psychiatric History: not reviewed Review of Systems Constitutional: Reports as per HPI, Reports body ache(s), Reports chills and Reports malaise Gastrointestinal: Reports nausea and Reports vomiting Diagnostics Vital Signs (24Hr): Vital Signs - 24 hr 06/24/24 10:51 06/24/24 13:13 Temperature 98.3 F Pulse Rate 88 87 Respiratory Rate 20 19 Blood Pressure 171/84 H 157/102 H Pulse Oximetry 100 100 Oxygen Delivery Method Room Air Room Air BMI result Body Mass Index 28.0 Labs 06/24/24 11:07 06/24/24 11:07 Labs: Laboratory Results - last 48 hr 06/24/24 06/24/24 11:07 15:09 WBC 6.5 RBC 4.54 Hgb 10.8 L Hct 34.5 L MCV 76.0 L MCH 23.8 L MCHC 31.3 RDW 17.9 H Plt Count 180 MPV 12.0 Immature Gran % (Auto) 0.8 H Neut % (Auto) 71.5 Lymph % (Auto) 18.3 L [place] % (Auto) 7.7 Eos % (Auto) 1.2 Baso % (Auto) 0.5 Lymph # (Auto) 1.2 [place] # (Auto) 0.5 Eos # (Auto) 0.1 Baso # (Auto) 0.0 Abs Immat Gran (auto) 0.05 H Absolute Neuts (auto) 4.7 Absolute Nucleated RBC 0.000 Nucleated RBC % (auto) 0.0 Smear Tech's Comments VERIFIED Sodium 140 Potassium 3.7 Chloride 110 H Carbon Dioxide 18 L Anion Gap 16 BUN 15 Creatinine 0.93 Estim Creat Clear Calc 74.5 Estimated GFR > 60 Random Glucose 124 H Calcium 9.7 Magnesium 1.9 Total Bilirubin 0.4 Direct Bilirubin 0.1 AST 16 ALT 11 Alkaline Phosphatase 49 Total Protein 8.3 H Albumin 4.4 Beta HCG, Quant < 2 Urine Color Yellow Urine Appearance Clear Urine pH 7.0 Ur Specific [place] 1.015 Urine Protein Negative Urine Glucose (UA) Negative Urine Ketones Negative Urine Blood Negative Urine Nitrite Negative Ur Leukocyte Esterase Trace H Urine RBC 0-2 Urine WBC 0-5 Ur Squamous Epith Cells 6-10 Urine Bacteria None Seen Hyaline Casts 0-2 Urine Opiates Screen Not Detected Ur Buprenorphine Scrn Not Detected Ur Oxycodone Screen Not Detected Urine Methadone Screen Not Detected Urine Fentanyl Screen POSITIVE H Ur Barbiturates Screen Not Detected Ur Phencyclidine Scrn Not Detected Ur Amphetamines Screen Not Detected U Benzodiazepines Scrn Not Detected Urine Cocaine Screen Not Detected U Marijuana (THC) Screen POSITIVE H Mental Status Exam Mental Status Exam Level of Consciousness: Awake and Restless Patient Behavior: Appropriate and Guarded Medications Allergies Allergies Allergy/AdvReac Type Severity Reaction Status Date / Time amoxicillin [Amoxicillin] Allergy Intermediate HIVES Verified 06/24/24 10:54 tramadol AdvReac Intermediate SOB Verified 06/24/24 10:54 Assessment & Plan Assessment & Plan (1) Opioid use disorder: Status: Acute Code(s): F11.90 - Opioid use, unspecified, uncomplicated Assessment and Plan: * received total of methadone 40mg while in ED and sx resolved * referral sent to [facility] Total time managing care of this patient today ____ minutes. [facility] Past Medical History Medical History Intractable vomiting Bacteremia Acidosis, lactic Pyelonephritis Cocaine abuse Vomiting Abdominal pain Pelvic inflammatory disease UTI (urinary tract infection) Hypokalemia Hidradenitis suppurativa Complicated UTI (urinary tract infection) Cyclical vomiting Marijuana abuse Opioid abuse Hypothyroidism Pyelonephritis Abscess Family History Family History Mother CVD (cardiovascular disease) HTN (hypertension) Maternal Grandmother High cholesterol HTN (hypertension) Maternal Grandfather Prostate cancer Other Heart disease Surgical History Surgical History Tubal ligation status Social History Social History Household Members: Children Housing: House Do you presently have visiting nurse or other home services: No Alcohol intake: current Alcohol intake frequency: a few times a week Alcohol type: wine and hard liquor Comment: no bm yet Patient Tobacco Use Status: Current someday Tobacco user Tobacco use type: Cigarette Cigarettes Per Day: 4 Years Smoked: 25 e-Cigarette/Vaping Use: Never Used Second Hand Smoke Exposure: No Substance Use Type: Marijuana Advance Directives: Yes Advance Directives on File: Yes Advance Directives Date on File: 01/02/21 Patient : No service: No Current occupational status: employed
--- NOTE | 2024-06-24 16:23 | MHC.RECOVRN ---
Pts referral sent to [facility].
[2024-06-24 16:47] VITALS: BP 187/94; PULSE 74; RESP 16; O2SAT 100
[2024-06-24] MEDS: Naloxone HCl Nasal TAKE HOME 4 MG SPRAY 8 MG NOSTRILALT (16:56)
[2024-06-24 17:03] VITALS: BP 187/94; PULSE 74; RESP 16; TEMP 37.1; O2SAT 100
== END 2024-06-24 17:05 | disposition home or self-care (01) ==
PROVIDERS: Emergency Provider Emergency Medicine
DX: F11.20 Opioid dependence, uncomplicated (principal); R10.84 Generalized abdominal pain; F14.10 Cocaine abuse, uncomplicated; M54.50 Low back pain, unspecified; R10.13 Epigastric pain; R11.2 Nausea with vomiting, unspecified; Z79.899 Other long term (current) drug therapy
CPT/HCPCS: 36415; 80048; 80076; 80307; 81001; 83735; 84702; 85025; 93005; 96361; 96374; 96375; 99285; G2213; J1200; J1790; J2060; J2405; J7120

== ENCOUNTER → 2024-06-24 10:40 | Outpatient (BNV) | payer OTHER, SELFPAY | PROVIDERS: Emergency Provider Emergency Medicine; Visit Provider Internal Medicine | DX: R94.31 Abnormal electrocardiogram [ECG] [EKG] (principal) | CPT/HCPCS: 93010 ==

== ENCOUNTER → 2024-06-24 11:08 | Outpatient (BNV) | payer OTHER, SELFPAY | PROVIDERS: Emergency Provider Emergency Medicine; Visit Provider Nurse Practitioner Psychiatric/Mental Health | DX: F11.90 Opioid use, unspecified, uncomplicated (principal) | CPT/HCPCS: 99284 ==

== ENCOUNTER 2024-10-19 14:27 | Emergency (ER) | payer OTHER, SELFPAY ==
[2024-10-19] VITALS (7 sets, daily range): BP systolic 116–155; BP diastolic 70–94; PULSE 82–107; RESP 12–20; TEMP 37.3–39; O2SAT 98–100; BMI 22.2
--- NOTE | ~2024-10-19 | CT_ITS ---
EXAMINATION: CT ABDOMEN AND PELVIS WITH CONTRAST CLINICAL INFORMATION: Right lower quadrant pain, tender to palpation, dysuria COMPARISON: None available. TECHNIQUE: Multidetector volumetric images were obtained from the superior aspect of the liver through the pubic symphysis following administration 85 mL of Omnipaque 350 intravenous contrast. Sagittal and coronal reformatted images were obtained on the technologist's workstation. Oral contrast: No This CT examination was performed using dose optimization techniques as appropriate, variously including the following: *Automated exposure control *Adjustment of mA and/or kV according to patient size (this includes techniques or standardized protocols for targeted exams where dose is matched to indication/reason for exam; i.e. extremities or head) *Use of iterative reconstruction technique DLP: 368 mGy-cm FINDINGS: LUNG BASES: The visualized lung bases are unremarkable. LIVER, GALLBLADDER, AND BILIARY TREE: The liver is normal in size, shape, and attenuation. No focal hepatic lesion or biliary ductal dilatation is present. The gallbladder is unremarkable with no evidence of radiopaque gallstones, gallbladder wall thickening, or obvious pericholecystic inflammatory changes. PANCREAS: Unremarkable. SPLEEN: Unremarkable. ADRENAL GLANDS: Unremarkable. KIDNEYS AND URETERS: Focal area of hypoenhancement upper pole right kidney. Otherwise the kidneys size. No hydronephrosis). BLADDER: Unremarkable. GASTROINTESTINAL TRACT: The small and large bowel are unremarkable. The appendix is unremarkable. ABDOMINAL WALL: No significant hernia is appreciated. LYMPH NODES: Normal. VASCULAR: Unremarkable. PELVIC VISCERA: Unchanged 2 cm Papi's duct cyst in the vagina OSSEOUS STRUCTURES: Unremarkable. CT/CT abdomen pelvis w IV con IMPRESSION: Focal area of hypoenhancement in the upper pole of the right kidney. This may represent pyelonephritis. Correlate with urinalysis. Fleischner guidelines were followed. Electronically signed by: Sai Montero MD 10/19/2024 07:54 PM EST
--- NOTE | 2024-10-19 15:24 | ED.GENADULT ---
HPI - General Adult General Chief complaint: Abdominal Pain Stated complaint: SICK X 4 DAYS, ABD PAIN/N/V/D Time Seen by Provider: 10/19/24 16:00 Source: patient Mode of arrival: ambulatory Limitations: no limitations History of Present Illness ED Provider: Susan De Los Santos NP HPI narrative: Patient is a 44-year-old female who presents emergency department for evaluation. She reports 5 days ago she began having nausea, nonbloody bilious emesis, chills, tactile fever, and a few episodes of watery diarrhea without hematochezia or melena. This lasted 2 days. She then began experiencing pain to the right lower quadrant of her abdomen that is radiating all across to her lower back. Over the past couple of days she is also experiencing dysuria and urinary urgency. She denies any known sick contacts. When asked, she denies any overt concern for sexually transmitted infections she is without pelvic pain or abnormal vaginal discharge or pain with intercourse, however she has recently had intercourse with a past partner who has given her an infection in the past and is requesting testing for chlamydia and gonorrhea. She denies possibility of , reporting her last menstrual period approximately 1 week ago. Related Data Home Medications ?Medication ?Instructions ?Recorded ?Confirmed methenamine hippurate 1 gram tablet 1 tab PO DAILY 07/25/21 09/06/21 Previous Rx's ?Medication ?Instructions ?Recorded ascorbic acid (vitamin C) 1,000 mg 1 g PO DAILY chronic uti 90 days 05/11/21 tablet #90 tabs ondansetron 4 mg disintegrating 4 mg PO Q8H 4 days #12 tabs 01/23/22 tablet nitrofurantoin 100 mg PO Q12H 5 days #10 caps 04/21/22 monohydrate/macrocrystals 100 mg capsule (Macrobid) ondansetron 4 mg disintegrating 4 mg PO Q6-8H PRN nausea and 04/22/22 tablet vomiting #10 tabs doxycycline hyclate 100 mg tablet 100 mg PO BID #28 tabs 06/22/24 metronidazole 500 mg tablet 500 mg PO Q12H #28 tabs 06/22/24 metoclopramide HCl 10 mg tablet 10 mg PO Q6H PRN nausea and 06/24/24 (Reglan) vomiting #20 tabs ondansetron 4 mg disintegrating 4 mg PO Q8H PRN nausea and 06/24/24 tablet vomiting #20 tabs promethazine 25 mg rectal 25 mg AL Q6H PRN nausea and 06/24/24 suppository vomiting #12 ea cefpodoxime 200 mg tablet 200 mg PO BID 14 days #28 tabs 10/19/24 oxycodone 5 mg tablet 5 mg PO Q6H PRN pain #7 tabs 10/19/24 Allergies Allergy/AdvReac Type Severity Reaction Status Date / Time amoxicillin [Amoxicillin] Allergy Intermediate HIVES Verified 10/19/24 15:19 tramadol AdvReac Intermediate SOB Verified 10/19/24 15:19 Review of Systems Review of Systems: Yes all other systems are reviewed and are negative [facility] Past Medical History Attestation statement: The following information was validated with the patient. Source: old records reviewed Medical History Intractable vomiting Bacteremia Acidosis, lactic Pyelonephritis Cocaine abuse Vomiting Abdominal pain Pelvic inflammatory disease UTI (urinary tract infection) Hypokalemia Hidradenitis suppurativa Complicated UTI (urinary tract infection) Cyclical vomiting Marijuana abuse Opioid abuse Hypothyroidism Pyelonephritis Abscess Surgical History Tubal ligation status Family History Family History Mother CVD (cardiovascular disease) HTN (hypertension) Maternal Grandmother High cholesterol HTN (hypertension) Maternal Grandfather Prostate cancer Other Heart disease Social History Social History Household Members: Children Housing: House Do you presently have visiting nurse or other home services: No Alcohol intake: current Alcohol intake frequency: a few times a week Alcohol type: wine and hard liquor Comment: no bm yet Patient Tobacco Use Status: Current someday Tobacco user Tobacco use type: Cigarette Cigarettes Per Day: 4 Years Smoked: 25 Smoked in Last 30 Days: Yes e-Cigarette/Vaping Use: Never Used Second Hand Smoke Exposure: No Substance Use Type: Marijuana Advance Directives: Yes Advance Directives on File: Yes Advance Directives Date on File: 01/02/21 Do you have a plan to hurt others: No Plan service: No Current occupational status: employed Physical Exam ED Vital Signs: Vital Signs - 24 hr 10/19/24 15:13 10/19/24 17:37 10/19/24 18:33 Temperature 102.2 F H 99.3 F 99.2 F Pulse Rate 107 H 84 84 Respiratory Rate 20 16 15 Blood Pressure 149/94 H 130/80 116/73 Pulse Oximetry 100 98 Oxygen Delivery Method Room Air Room Air 10/19/24 18:50 10/19/24 21:15 10/19/24 22:06 Temperature 99.7 F 100.0 F 100.0 F Pulse Rate 82 88 88 Respiratory Rate 12 14 14 Blood Pressure 121/70 125/82 125/82 Pulse Oximetry 100 100 100 Oxygen Delivery Method Room Air Room Air Room Air BMI result Body Mass Index 22.2 Appearance: Alert.?Oriented to person, place and time. No acute distress.?Normal affect.?? Neck: Normal inspection.? Neck supple.?? CVS: Heart sounds normal. Normal heart rate and rhythm.? Pulses normal.?? Respiratory: No respiratory distress.? Lung sounds clear to auscultation bilaterally?? Abdomen: Soft with right lower quadrant tenderness upon palpation. Negative psoas sign. Negative Rovsing sign. Negative Lam sign. Bilateral CVAT. Normoactive bowel sounds. No pulsatile mass.?? Skin: Skin warm and dry.? Normal skin color.? Extremities: No lower extremity edema.? Neuro: Moves all extremities spontaneously. Sensation intact bilaterally. Ambulates with normal steady gait. Course Course Course Narrative: RME: 44-year-old female with history of kidney stones and pyelonephritis presents to ED for right flank pain going to the right low quadrant. Patient states history of kidney stones and UTI. Patient is febrile intact. Patient will be brought to ED immediately for sepsis protocol. Reevaluation(s) Reevaluation #1: CT of the abdomen pelvis representing focal area of hypoenhancement in the upper pole of the right kidney, suggestive of pyelonephritis given presence of urinary tract infection. She has required a few doses of IV analgesia. Had an at length discussion with patient, she would like to be discharged home, and trial outpatient therapy. We discussed strict return precautions. Sent prescription for antibiotic as well as a short course of oxycodone to pharmacy. All questions answered Medications Administered Discontinued Medications Generic Name Dose Route Start Last Admin Trade Name Freq PRN Reason Stop Dose Admin Acetaminophen 975 mg 10/19/24 16:01 10/19/24 16:05 Acetaminophen 325 Mg Tablet PO 10/19/24 16:02 975 mg ONCE ONE Administration Ceftriaxone Sodium 1 gm 10/19/24 16:11 10/19/24 16:22 Ceftriaxone Sodium 1 Gm Vial IVPUSH 10/19/24 16:12 1 gm ONCE ONE Administration Sodium Chloride 1,761 mls @ 1,761 mls/hr 10/19/24 16:11 10/19/24 18:20 Ns 30 ml/kg infuse over 1 hr (1761 ml) 10/19/24 17:10 Infused IV Infusion .Q1H STA Iohexol 100 ml 10/19/24 16:40 10/19/24 16:40 Iohexol 350 Mg/Ml 100 Ml Infus..Btl IV 10/19/24 16:41 85 ml ONCE ONE Administration Morphine Sulfate 4 mg 10/19/24 16:11 10/19/24 16:22 Morphine Sulfate 4 Mg/Ml Cartridge IVPUSH 10/19/24 16:12 4 mg ONCE ONE Administration Protocol Morphine Sulfate 4 mg 10/19/24 18:02 10/19/24 18:33 Morphine Sulfate 4 Mg/Ml Cartridge IVPUSH 10/19/24 18:03 4 mg ONCE ONE Administration Protocol Ondansetron HCl 4 mg 10/19/24 16:11 10/19/24 16:22 Ondansetron Hcl 4 Mg/2 Ml Vial IVPUSH 10/19/24 16:12 4 mg ONCE ONE Administration Oxycodone HCl 5 mg 10/19/24 21:31 10/19/24 21:37 Oxycodone Hcl Immed Release 5 Mg Tablet PO 10/19/24 21:32 5 mg ONCE ONE Administration Medical Decision Making Medical Decision Making MDM Narrative: Patient is a 44-year-old female with past medical history polysubstance use disorder, pelvic inflammatory disease, pyelonephritis, hidradenitis suppurativa, cyclical vomiting, hypothyroidism, tubal ligation who presents emergency department for evaluation of nausea vomiting abdominal pain radiating to the back, resolved diarrhea and symptoms as per HPI. I assumed care patient at 16:00 she is meeting SIRS criteria with tachycardia and temp of 102.2 degrees for which sepsis alert was called, she received acetaminophen 975 mg orally, sepsis fluid bolus, and covering with Rocephin for presumed urinary tract infection, pyelonephritis. However given initial onset of diarrhea and right lower quadrant pain preceding her genitourinary symptoms obtaining CT of the abdomen and pelvis to exclude alternative pathology such as appendicitis, colitis, enteritis, bowel obstruction. Patient with lower suspicion for a 60 transmitted infection, she does have a history of PID secondary to sexually transmitted infection, she declines pelvic examination at this time, no abnormal vaginal discharge or bleeding, no painful intercourse, no pelvic pain. Sending testing for chlamydia and gonorrhea, at this time lower suspicion for TOA. Differential Diagnosis Differential Diagnoses: The differential diagnosis associated with the presentation includes (See narrative above) Admission/Observation Consideration of admission/observation: Escalation of care including admission/observation considered (See narrative above ) Lab Data MDM Lab Attestation statement: I reviewed the patient's lab results. CBC reveals a mild leukocytosis with left shift, chronic stable microcytic anemia that does not meet transfusion criteria, mild thrombocytopenia. Mild hyponatremia of 133, no additional electrolyte derangement. No CHASE. T bili 1.2, remainder of LFTs unremarkable. No lactic acidosis. Urinalysis consistent with urinary tract infection. HCG is negative. Urine toxicology positive for marijuana. 10/19/24 15:50 10/19/24 15:50 Labs: Lab Results 10/19/24 10/19/24 10/19/24 Range/Units 15:50 16:00 17:21 WBC 11.8 H (4.8-10.8) X10*3/uL RBC 4.44 (4.20-5.50) X10*6/uL Hgb 10.5 L (12.0-16.0) g/dl Hct 34.5 L (37.0-47.0) % MCV 77.7 L (80.0-98.0) fL MCH 23.6 L (27.0-33.0) pg MCHC 30.4 L (31.0-35.0) g/dl RDW 17.3 H (11.0-16.0) % Plt Count 146 L (160-400) X10*3/uL MPV 11.9 (9.4-12.3) fL Immature Gran % (Auto) Cancelled Neut % (Auto) Cancelled Lymph % (Auto) Cancelled Ellis % (Auto) Cancelled Eos % (Auto) Cancelled Baso % (Auto) Cancelled Lymph # (Auto) Cancelled Ellis # (Auto) Cancelled Eos # (Auto) Cancelled Baso # (Auto) Cancelled Abs Immat Gran (auto) Cancelled Absolute Neuts (auto) Cancelled Absolute Nucleated RBC 0.000 (0.0-0.012) X10*3/uL Nucleated RBC % (auto) 0.0 (0.0-0.2) /100WBC Neutrophils % (Manual) 85 H (45-73) % Band Neutrophils % 0 L (3-5) % Lymphocytes % (Manual) 10 L (20-40) % Monocytes % (Manual) 4 (2-11) % Eosinophils % (Manual) 1 (0-4) % Abs Neuts (Manual) 10.0 H (2.0-8.3) X10*3/uL Lymphocytes # (Manual) 1.2 (1.2-4.9) X10*3/uL Monocytes # (Manual) 0.5 (0.1-1.2) X10*3/uL Eosinophils # (Manual) 0.1 (0.0-0.4) X10*3/uL Platelet Estimate NORMAL (NORMAL) Plt Morphology Comment NORMAL RBC Morphology NORMAL Sodium 133 L (135-145) mmol/L Potassium 4.1 (3.3-5.1) mmol/L Chloride 99 (96-108) mmol/L Carbon Dioxide 22 (22-29) mmol/L Anion Gap 16 (12-20) BUN 10 (9-16) mg/dL Creatinine 0.81 (0.5-1.4) mg/dL Estim Creat Clear Calc 74.9 Estimated GFR > 60 Random Glucose 99 (60-115) mg/dL Lactic Acid 1.8 (0.5-2.0) mmol/L Calcium 9.4 (8.4-10.2) mg/dL Total Bilirubin 1.2 H (0.0-1.0) mg/dL AST 28 (5-31) U/L ALT 10 (0-31) U/L Alkaline Phosphatase 58 (39-117) U/L Total Protein 8.7 H (6.5-8.0) g/dL Albumin 4.2 (3.5-5.0) g/dL Urine Color Dark Yellow Urine Appearance Turbid Urine pH 6.5 (5.0-9.0) Ur Specific [place] 1.020 (1.005-1.025) Urine Protein 100 (2+) H (Neg-Trace) mg/dL Urine Glucose (UA) Negative (Negative) mg/dL Urine Ketones Trace (Negative) mg/dL Urine Blood Large (3+) H (Negative) Urine Nitrite Positive H (Negative) Ur Leukocyte Esterase Large (3+) H (Negative) Urine RBC >20 H (0-2) /HPF Urine WBC >50 H (0-5) /HPF Ur Squamous Epith Cells 11-20 (0-2) /HPF Urine Bacteria 4+ (None Seen) Hyaline Casts 3-5 (0-2) /LPF Urine Test NEGATIVE (NEGATIVE) Urine Opiates Screen Not Detected (Not Detect) Ur Buprenorphine Scrn Not Detected (Not Detect) ng/mL Ur Oxycodone Screen Not Detected (Not Detect) ng/mL Urine Methadone Screen Not Detected (Not Detect) ng/mL Urine Fentanyl Screen Not Detected (Not Detect) Ur Barbiturates Screen Not Detected (Not Detect) Ur Phencyclidine Scrn Not Detected (Not Detect) Ur Amphetamines Screen Not Detected (Not Detect) U Benzodiazepines Scrn Not Detected (Not Detect) Urine Cocaine Screen Not Detected (Not Detect) U Marijuana (THC) Screen POSITIVE H (Not Detect) Chlam trachomat DNA PCR NOT DETECTED (Not Detect.) Influenza Type A (PCR) NEGATIVE (Negative) Influenza Type B (PCR) NEGATIVE (Negative) N.gonorrhoeae DNA (PCR) NOT DETECTED (Not Detect.) RSV RNA Qual (PCR) NEGATIVE (Negative) SARS-CoV-2 RNA (RT-PCR) NEGATIVE (Negative) Radiology Impression Discussion of test interpretation with radiology: I have reviewed the radiologist's reading. Radiologist Impression: CT/CT abdomen pelvis w IV con IMPRESSION: Focal area of hypoenhancement in the upper pole of the right kidney. This may represent pyelonephritis. Correlate with urinalysis. Fleischner guidelines were followed. External Record Review External record reviewed: Outpatient record and Other I attest that I have reviewed patients [employer], and at the time prescribing the patient a controlled substance is appropriate based off of patients diagnosis and treatment plan. Critical Care Time Critical Care Time Critical Care Time: Yes Total Critical Care Time: 35 Attestation: I personally attest to this critical care time spent taking care of the patient exclusive of all other billable procedures was approximately 35 minutes including initial evaluation of patient, ordering tests, CT interpretation, morphine IV for analgesia on re-evaluation,, medical consultation, documentation, re-evaluation. Discharge Plan Discharge Clinical Impression: Pyelonephritis Patient Disposition: Home, Self-Care Instructions: Kidney Infection (ED) Additional Instructions: Complete the entire course of antibiotics as prescribed. You can take ibuprofen 200 mg, 3 tablets (600mg) every 6-8 hours as needed for pain, in addition to Tylenol 500 mg, 2 tablets (1,000mg) every 4-6 hours as needed for pain, but not to exceed 3 doses daily (3,000mg).? For pain that is unrelieved by either of the above I have sent a short prescription for oxycodone to your pharmacy. This is a narcotic medication. It may be addicting. You should not drive, drink alcohol, or work while taking this medication. Return with any new or worsening symptoms or concerns. If you are unable to tolerate oral intake, inability to urinate, having fevers, chills, worsening pain, please seek re-evaluation. Prescriptions: New cefpodoxime 200 mg tablet 200 mg PO BID 14 Days Qty: 28 0RF Rx Instructions: must administer with a meal/food oxycodone 5 mg tablet 5 mg PO Q6H PRN (Reason: pain) Qty: 7 0RF Rx Instructions: Partial Fill upon patient request. No Action ascorbic acid (vitamin C) 1,000 mg tablet 1 g PO DAILY 90 Days Qty: 90 0RF methenamine hippurate 1 gram tablet 1 tab PO DAILY ondansetron 4 mg tablet,disintegrating 4 mg PO Q8H 4 Days Qty: 12 0RF nitrofurantoin monohyd/m-cryst [Macrobid] 100 mg capsule 100 mg PO Q12H 5 Days Qty: 10 0RF Rx Instructions: must administer with a meal/food ondansetron 4 mg tablet,disintegrating 4 mg PO Q6-8H PRN (Reason: nausea and vomiting) Qty: 10 0RF doxycycline hyclate 100 mg tablet 100 mg PO BID Qty: 28 0RF metronidazole 500 mg tablet 500 mg PO Q12H Qty: 28 0RF promethazine 25 mg suppository 25 mg AL Q6H PRN (Reason: nausea and vomiting) Qty: 12 0RF ondansetron 4 mg tablet,disintegrating 4 mg PO Q8H PRN (Reason: nausea and vomiting) Qty: 20 0RF metoclopramide HCl [Reglan] 10 mg tablet 10 mg PO Q6H PRN (Reason: nausea and vomiting) Qty: 20 0RF Referrals: Physician,None [Primary Care Provider] - Stand Alone Forms: Work/School Release Interventions: ED Discharge Assessment Last Done: 10/19/24 22:06 Discharge Date/Time: 10/19/24 22:21 Print Language: Slovenian
[2024-10-19] MEDS: Acetaminophen 325 MG TABLET 975 MG PO (16:05)
[2024-10-19 16:06] LABS: Hematocrit 34.5 % (37.0-47.0); Hemoglobin 10.5 g/dl (12.0-16.0); Mean Corpuscular HGB Conc 30.4 g/dl (31.0-35.0); Mean Corpuscular Hemoglobin 23.6 pg (27.0-33.0); Mean Corpuscular Volume 77.7 fL (80.0-98.0); Mean Platelet Volume 11.9 fL (9.4-12.3); PLT CLUMP 1; Red Blood Count 4.44 X10*6/uL (4.20-5.50); Red Cell Distribution Width 17.3 % (11.0-16.0); WBC ABN SCTR FOR CBC 1
[2024-10-19 16:11] LABS: Lactic Acid 1.8 mmol/L (0.5-2.0)
[2024-10-19 16:19] LABS: Appearance Urine Turbid; Color Urine Dark Yellow; Glucose Urine UA Negative (Negative); Leukocyte Esterase Urine Large (3+) (Negative); Nitrite Urine Positive (Negative); PH 6.5 (5.0-9.0); UMIC TRIGGER UACC YES; Urine Blood Large (3+) (Negative); Urine Ketones Trace mg/dL (Negative); Urine Protein 100 (2+) mg/dL (Neg-Trace)
[2024-10-19 16:20] LABS: Albumin Level 4.2 g/dL (3.5-5.0); Anion Gap 16 (12-20); Aspartate Amino Transferase 28 U/L (5-31); Bilirubin Total 1.2 mg/dL (0.0-1.0); Blood Urea Nitrogen 10 mg/dL (9-16); Calcium 9.4 mg/dL (8.4-10.2); Carbon Dioxide 22 mmol/L (22-29); Chloride 99 mmol/L (96-108); Creatinine Clr Calc Pharmacy 74.9; Estimated Glomerular Filt Rate > 60; Glucose Random 99 mg/dL (60-115); Potassium 4.1 mmol/L (3.3-5.1); Sodium 133 mmol/L (135-145); Total Protein 8.7 g/dL (6.5-8.0)
[2024-10-19 16:20] LABS: UPreg QC Valid YES; Urine Pregnancy NEGATIVE (NEGATIVE)
[2024-10-19 16:22] LABS: Amphetamine Screen Urine Not Detected (Not Detect); Barbiturates, Urine Not Detected (Not Detect); Benzodiazepines Screen Urine Not Detected (Not Detect); Buprenorphine Scr Not Detected (Not Detect); Cannabinoid Screen Urine POSITIVE (Not Detect); Cocaine Screen Urine Not Detected (Not Detect); Fentanyl, urine Not Detected (Not Detect); Methadone Screen, Urine Not Detected (Not Detect); Opiate Screen Urine Not Detected (Not Detect); Oxycodone Screen Urine Not Detected (Not Detect); Phencyclidine Screen Urine Not Detected (Not Detect)
[2024-10-19 16:22] LABS: Alanine Aminotransferase 10 U/L (0-31); Alkaline Phosphatase 58 U/L (39-117)
[2024-10-19] MEDS: cefTRIAXone sodium 1 GM VIAL IVPUSH (16:22)
[2024-10-19] MEDS: Morphine Sulfate 4 MG/ML CARTRIDGE IVPUSH ×2 (16:22→18:33)
[2024-10-19] MEDS: SODIUM CHLORIDE 1761 ML IV (16:22)
[2024-10-19] MEDS: ondansetron HCL 4 MG/2 ML VIAL IVPUSH (16:22)
[2024-10-19 16:24] LABS: Band Neutrophils Percent 0 % (3-5); Eosinophils Percent Manual 1 % (0-4); Lymphocytes Percent Manual 10 % (20-40); Monocytes Percent Manual 4 % (2-11); Neutrophils Percent Manual 85 % (45-73)
[2024-10-19 16:25] LABS: Bacteria Urine 4+ (None Seen); RBC Urine >20 /HPF (0-2); UACC Culture Trigger YES; WBC Urine >50 /HPF (0-5)
[2024-10-19 16:25] LABS: Platelet Estimate NORMAL (NORMAL); Platelet Morphology Comment NORMAL; RBC Morphology NORMAL
[2024-10-19 16:26] LABS: Eosinophils Absolute Manual 0.1 X10*3/uL (0.0-0.4); Lymphocytes Absolute Manual 1.2 X10*3/uL (1.2-4.9); Monocytes Absolute Manual 0.5 X10*3/uL (0.1-1.2); Platelet Count 146 X10*3/uL (160-400); White Blood Count 11.8 X10*3/uL (4.8-10.8)
[2024-10-19] MEDS: iohexoL 350 MG/ML 100 ML INFUS..BTL IV (16:40)
[2024-10-19 18:16] LABS: Influenza A PCR NEGATIVE (Negative); Influenza B PCR NEGATIVE (Negative); Resp Syncy Virus RNA Qual PCR NEGATIVE (Negative); SARS COV2 PCR INHOUSE NEGATIVE (Negative)
[2024-10-19] MEDS: oxyCODONE HCl Immed Release 5 MG TABLET PO (21:37)
[2024-10-20 02:49] LABS: CT PCR NOT DETECTED (Not Detect.); NG PCR NOT DETECTED (Not Detect.)
== END 2024-10-19 22:21 | disposition home or self-care (01) ==
PROVIDERS: Nurse Practitioner Family; Physician Assistant; Emergency Provider Emergency Medicine
DX: N12 Tubulo-interstitial nephritis, not specified as acute or chronic (principal); R11.2 Nausea with vomiting, unspecified; R50.9 Fever, unspecified; R19.7 Diarrhea, unspecified; R10.2 Pelvic and perineal pain; Z87.442 Personal history of urinary calculi; Z51.81 Encounter for therapeutic drug level monitoring; Z03.818 Encounter for observation for suspected exposure to other biological agents ruled out
CPT/HCPCS: 0241U; 36415; 74177; 80053; 80307; 81001; 81025; 83605; 85007; 85025; 85027; 87040; 87086; 87088; 87186; 87491; 87591; 96361; 96374; 96375; 96376; 99285; J0696; J2270; J2405; Q9967

== ENCOUNTER 2025-09-21 15:23 | Emergency (ER) | payer SELFPAY ==
--- NOTE | ~2025-09-21 | CT_ITS ---
CLINICAL HISTORY: pyelo? CT abdomen and pelvis with IV contrast Comparison: CT/SR - CT ABDOMEN PELVIS WITH IV CONTRAST - 10/19/24 16:33 EST Findings: Lung bases show no active disease. No dependent layering pleural effusions. The heart is not enlarged. Coronary artery calcifications: None. Liver normal size and contour. No focal hepatic lesions. Patent hepatic and portal veins. Physiologic distention of the gallbladder with no radiopaque gallstones. Homogeneous enhancement of the pancreas. No splenomegaly. Normal adrenal glands. Symmetrical renal excretion with no segmental or diffuse renal parenchymal disease or evidence of obstructive uropathy/hydroureteronephrosis. Normal caliber abdominal aorta. Bowel demonstrates a nonobstructive pattern. No free air. Normal appendix and terminal ileum. Diverticulosis coli without CT evidence of acute diverticulitis. No intraperitoneal, retroperitoneal, pelvic or inguinal masses lymphadenopathy or abnormal fluid collections. Equivocal mild cystitis. Stable 2 cm Papi duct cyst with dependent calcification left vaginal wall. No vertebral body compression fractures or spondylolisthesis. No bony destructive lesions. Impression: 1. Equivocal mild cystitis. No evidence of pyelitis /pyonephrosis or pyelonephritis. 2. 2 cm probable cyst left adnexa. Pelvic sonogram would be confirmatory. Free fluid in the cul-de-sac deemed physiologic. This document has been electronically signed by: John Rosas MD on 09/21/2025 22:01:41
[2025-09-21 15:31] VITALS: BP 186/107; PULSE 91; RESP 20; TEMP 36.9; O2SAT 100; BMI 28.2
--- NOTE | 2025-09-21 15:34 | ED_ITS ---
HPI - General Adult General Chief complaint: Abdominal Pain Stated complaint: Stomach Pain Time Seen by Provider: 09/21/25 20:14 Source: patient Limitations: no limitations History of Present Illness ED Provider: Sadie Faust PA-C HPI narrative: 45-year-old female with a history of prior pyelonephritis, polysubstance abuse, cannabinoid hyperemesis syndrome, hidradenitis suppurativa, obesity, who presents with dysuria times 1-2 days. Pain over suprapubic region, with the associated burning with urination. Patient also states she is having low back pain with nausea vomiting and fevers of 101.2 at home. Denies concurrent cough or cold symptoms. Denies flank pain or history of kidney stones. Related Data Home Medications ?Medication ?Instructions ?Recorded ?Confirmed methenamine hippurate 1 gram tablet 1 tab PO DAILY 09/06/21 Previous Rx's ?Medication ?Instructions ?Recorded ascorbic acid (vitamin C) 1,000 mg 1 g PO DAILY chroni c uti 90 days 05/11/21 tablet #90 tabs ondansetron 4 mg disintegrating 4 mg PO Q8H 4 days #12 tabs 01/23/22 tablet nitrofurantoin 100 mg PO Q12H 5 days #10 ca ps 04/21/22 monohydrate/macrocrystals 100 mg capsule (Macrobid) ondansetron 4 mg disintegrating 4 mg PO Q6-8H PRN naus ea and 04/22/22 tablet vomiting #10 tabs doxycycline hyclate 100 mg tablet 100 mg PO BID #28 ta bs 06/22/24 metronidazole 500 mg tablet 500 mg PO Q12H #28 tabs metoclopramide HCl 10 mg tablet 10 mg PO Q6H PRN nause a and 06/24/24 (Reglan) vomiting #20 tabs ondansetron 4 mg disintegrating 4 mg PO Q8H PRN nausea and 06/24/24 tablet vomiting #20 tabs promethazine 25 mg rectal 25 mg AZ Q6H PRN nausea and 06/24/24 suppository vomiting #12 ea cefpodoxime 200 mg tablet 200 mg PO BID 14 days #28 ta bs 10/19/24 oxycodone 5 mg tablet 5 mg PO Q6H PRN pain #7 tabs 10/19/24 cephalexin 500 mg capsule 500 mg PO Q12H #13 caps 09/11 12/05 dicyclomine 20 mg tablet 20 mg PO QID PRN abdominal p ain 09/21/25 #10 tabs ketorolac 10 mg tablet 10 mg PO Q6H PRN pain #20 ta bs 09/21/25 phenazopyridine 200 mg tablet 200 mg PO TID PRN pain # 10 tabs 09/21/25 (Pyridium) Allergies Allergy/AdvReac Type Severity Reaction Status Date / Time amoxicillin (Amoxicillin) Allergy Intermediate HIVES Verified 09/21/25 15:35 tramadol AdvReac Intermediate SOB Verified 09/21/25 15:35 Review of Systems 2 Review of Systems: Yes all other systems are reviewed and are negative Constitutional: Constitutional: Denies fatigue and Reports fever(s) Cardiovascular: Cardiovascular: Denies chest pain and Denies dyspnea Respiratory: Respiratory: Denies cough and Denies dyspnea Gastrointestinal: Gastrointestinal: Reports abdominal pain, Denies diarrhea, Reports nausea and Reports vomiting Genitourinary: Genitourinary: Reports dysuria and Denies flank pain Musculoskeletal: Musculoskeletal: Reports back pain Endocrine: Endocrine: Denies fatigue [facility] Past Medical History Attestation statement: The following information was validated with the patient. Medical History Intractable vomiting Bacteremia Acidosis, lactic Pyelonephritis Cocaine abuse Vomiting Abdominal pain Pelvic inflammatory disease UTI (urinary tract infection) Hypokalemia Hidradenitis suppurativa Complicated UTI (urinary tract infection) Cyclical vomiting Marijuana abuse Opioid abuse Hypothyroidism Pyelonephritis Abscess Surgical History Tubal ligation status Family History Family History Mother CVD (cardiovascular disease) HTN (hypertension) Maternal Grandmother High cholesterol HTN (hypertension) Maternal Grandfather Prostate cancer Other Heart disease Social History Social History Household Members: Children Housing: House Do you presently have visiting nurse or other home services: No Alcohol intake: current Alcohol intake frequency: a few times a week Alcohol type: wine and hard liquor Comment: no bm yet Patient Tobacco Use Status: Current someday Tobacco user Tobacco use type: Cigarette Cigarettes Per Day: 4 Years Smoked: 25 e-Cigarette/Vaping Use: Never Used Second Hand Smoke Exposure: No Substance Use Type: Marijuana Advance Directives: Yes Advance Directives on File: Yes Advance Directives Date on File: 01/02/21 Do you have a plan to hurt others: No Plan service: No Current occupational status: employed Physical Exam ED Vital Signs: Vital Signs - 24 hr 09/21/25 15:31 09/21/25 19:01 09/21/25 22:47 Temperature 98.4 F 97.8 F 97.9 F Pulse Rate 91 75 72 Respiratory Rate 20 20 16 Blood Pressure 186/107 H 172/87 H 144/88 H Pulse Oximetry 100 100 99 Oxygen Delivery Method Room Air Room Air Room Air BMI result Body Mass Index 28.2 Const Other: Alert Orientation/consciousness: patient oriented x3 Resp Effort & Inspection: normal respiratory effort Cardio Other: Normal peripheral perfusion General: Yes no CVA tenderness Back/Spine/Pelvis Back: no CVA tenderness Skin Other: Warm dry no rash Neuro General: patient oriented x3, gait normal, no focal motor deficits and CN's II- XI intact bilaterally Psych Other: Cooperative Course Course Course Narrative: This is a rapid medical exam performed by Rose Mary Rincon NP: Additional HPI, ROS, PE not included below will be deferred to primary provider. Patient is a 45y/o F presenting to the ED with c/o vomiting, subjective fevers yesterday. Today reports urinary frequency and going small amounts. Has been told BP elevated in the past but is not on antihypertensives. Plan: labs, viral serology, UA Medications Administered Discontinued Medications Generic Name Dose Route Start Last Admin Trade Name Joseq PRN Reason Stop Dose Admin Diazepam 5 mg 09/21/25 21:56 09/21/25 22:09 Diazepam 10 Mg/2 Ml Cartridge IVPUSH 09/21/25 21:57 5 mg STAT STA Administration Sodium Chloride 500 mls @ 500 mls/hr 09/21/25 20:30 09/21/25 21:52 Ns IV 09/21/25 21:29 Infused .Q1H ONE Infusion Ceftriaxone Sodium 2 gm/ 50 mls @ 100 mls/hr 09/21/25 20:30 09/21/25 21:52 Sodium Chloride IV 09/21/25 20:59 Infused ONCE ONE Infusion Iohexol 85 ml 09/21/25 21:08 09/21/25 21:09 Iohexol 350 Mg/Ml 100 Ml Infus..Btl IV 09/21/25 21:09 85 ml ONCE ONE Administration Ketorolac Tromethamine 15 mg 09/21/25 20:30 09/21/25 21:01 Ketorolac Tromethamine 15 Mg/Ml Vial IVPUSH 09/21/25 20:31 15 mg ONCE ONE Administration Phenazopyridine HCl 200 mg 09/21/25 20:30 09/21/25 21:01 Phenazopyridine Hcl 200 Mg Tablet PO 09/21/25 20:31 200 mg ONCE ONE Administration Medical Decision Making Medical Decision Making MDM Narrative: 45-year-old female with a history of prior pyelonephritis, polysubstance abuse, cannabinoid hyperemesis syndrome, hidradenitis suppurativa, obesity, who presents with dysuria times 1-2 days. Pain over suprapubic region, with the associated burning with urination. Patient also states she is having low back pain with nausea vomiting and fevers of 101.2 at home. Denies concurrent cough or cold symptoms. Denies flank pain or history of kidney stones. Problem: Polyp pyelonephritis, polysubstance abuse History: Per patient I have considered the following differential diagnoses: Urinary tract infection, pyelonephritis, renal colic, sepsis Plan: The patient is not febrile here, although she is stating she has had fevers at home with the associated nausea vomiting back pain, her urine is positive for urinary tract infection, I am concerned for pyelonephritis, obtaining a CT scan. Adding blood cultures, lactic, she is not hypotensive, giving a 500ml fluid bolus, starting ceftriaxone. Giving Toradol and Pyridium for her pain. Doubtful to be renal colic, she is well-appearing, she has not had flank pain, she has no history of kidney stones. I have independently reviewed the following tests: Labs: No overall leukocytosis, left shift noted, stable anemia, no electrolyte abnormality, urine is infected, not , lactic CT abdomen and pelvis:mpression: 1. Equivocal mild cystitis. No evidence of pyelitis /pyonephrosis or pyelonephritis. 2. 2 cm probable cyst left adnexa. Pelvic sonogram would be confirmatory. Free fluid in the cul-de-sac deemed physiologic. Differential Diagnosis Differential Diagnoses: The differential diagnosis associated with the presentation includes See medical decision-making Admission/Observation Consideration of admission/observation: Escalation of care including admission/observation considered Consult Healthcare Provider Management of the patient was discussed with: Hospitalist Lab Data MDM Lab Attestation statement: I reviewed the patient's lab results. 09/21/25 16:16 09/21/25 16:16 Labs: Lab Results 09/21/25 09/21/25 09/21/25 Range/Units 16:06 16:09 16:16 WBC 6.1 (4.8-10.8) X10*3/uL RBC 4.27 (4.20-5.50) X10*6/uL Hgb 9.8 L (12.0-16.0) g/dl Hct 33.2 L (37.0-47.0) % MCV 77.8 L (80.0-98.0) fL MCH 23.0 L (27.0-33.0) pg MCHC 29.5 L (31.0-35.0) g/dl RDW 17.5 H (11.0-16.0) % Plt Count 196 D (160-400) X10*3/uL MPV 12.6 H (9.4-12.3) fL Immature Gran % (Auto) Cancelled Neut % (Auto) Cancelled Lymph % (Auto) Cancelled Lipscomb % (Auto) Cancelled Eos % (Auto) Cancelled Baso % (Auto) Cancelled Lymph # (Auto) Cancelled Lipscomb # (Auto) Cancelled Eos # (Auto) Cancelled Baso # (Auto) Cancelled Abs Immat Gran (auto) Cancelled Absolute Neuts (auto) Cancelled Absolute Nucleated RBC 0.000 (0.0-0.012) X10*3/uL Nucleated RBC % (auto) 0.0 (0.0-0.2) /100WBC Neutrophils % (Manual) 76 H (45-73) % Band Neutrophils % 0 L (3-5) % Lymphocytes % (Manual) 20 (20-40) % Monocytes % (Manual) 4 (2-11) % Abs Neuts (Manual) 4.6 (2.0-8.3) X10*3/uL Lymphocytes # (Manual) 1.2 (1.2-4.9) X10*3/uL Monocytes # (Manual) 0.2 (0.1-1.2) X10*3/uL Platelet Estimate NORMAL (NORMAL) Large Platelets PRESENT Plt Morphology Comment NORMAL RBC Morphology NORMAL Sodium 139 (135-145) mmol/L Potassium 3.7 (3.3-5.1) mmol/L Chloride 107 (96-108) mmol/L Carbon Dioxide 26 (22-29) mmol/L Anion Gap 10 L (12-20) BUN 15 (9-16) mg/dL Creatinine 0.73 (0.5-1.4) mg/dL Estim Creat Clear Calc 94.2 Estimated GFR > 60 Random Glucose 110 (60-115) mg/dL Lactic Acid (0.5-2.0) mmol/L Calcium 9.0 (8.4-10.2) mg/dL Total Bilirubin 0.4 (0.0-1.0) mg/dL AST 21 (5-31) U/L ALT 12 (0-31) U/L Alkaline Phosphatase 53 (39-117) U/L Total Protein 7.9 (6.5-8.0) g/dL Albumin 4.3 (3.5-5.0) g/dL Beta HCG, Quant < 2 mIU/mL Urine Color Yellow Urine Appearance Turbid Urine pH 5.5 (5.0-9.0) Ur Specific Eva 1.025 (1.005-1.025) Urine Protein Trace (Neg-Trace) mg/dL Urine Glucose (UA) Negative (Negative) mg/dL Urine Ketones Trace (Negative) mg/dL Urine Blood Negative (Negative) Urine Nitrite Positive H (Negative) Ur Leukocyte Esterase Small (1+) H (Negative) Urine RBC 0-2 (0-2) /HPF Urine WBC 21-50 H (0-5) /HPF Ur Squamous Epith Cells >20 (0-2) /HPF Urine Bacteria 4+ (None Seen) Hyaline Casts 3-5 (0-2) /LPF Influenza Type A (PCR) NEGATIVE (Negative) Influenza Type B (PCR) NEGATIVE (Negative) RSV RNA Qual (PCR) NEGATIVE (Negative) SARS-CoV-2 RNA (RT-PCR) NEGATIVE (Negative) 09/21/25 Range/Units 20:56 WBC (4.8-10.8) X10*3/uL RBC (4.20-5.50) X10*6/uL Hgb (12.0-16.0) g/dl Hct (37.0-47.0) % MCV (80.0-98.0) fL MCH (27.0-33.0) pg MCHC (31.0-35.0) g/dl RDW (11.0-16.0) % Plt Count (160-400) X10*3/uL MPV (9.4-12.3) fL Immature Gran % (Auto) Neut % (Auto) Lymph % (Auto) Lipscomb % (Auto) Eos % (Auto) Baso % (Auto) Lymph # (Auto) Lipscomb # (Auto) Eos # (Auto) Baso # (Auto) Abs Immat Gran (auto) Absolute Neuts (auto) Absolute Nucleated RBC (0.0-0.012) X10*3/uL Nucleated RBC % (auto) (0.0-0.2) /100WBC Neutrophils % (Manual) (45-73) % Band Neutrophils % (3-5) % Lymphocytes % (Manual) (20-40) % Monocytes % (Manual) (2-11) % Abs Neuts (Manual) (2.0-8.3) X10*3/uL Lymphocytes # (Manual) (1.2-4.9) X10*3/uL Monocytes # (Manual) (0.1-1.2) X10*3/uL Platelet Estimate (NORMAL) Large Platelets Plt Morphology Comment RBC Morphology Sodium (135-145) mmol/L Potassium (3.3-5.1) mmol/L Chloride (96-108) mmol/L Carbon Dioxide (22-29) mmol/L Anion Gap (12-20) BUN (9-16) mg/dL Creatinine (0.5-1.4) mg/dL Estim Creat Clear Calc Estimated GFR Random Glucose (60-115) mg/dL Lactic Acid 0.9 (0.5-2.0) mmol/L Calcium (8.4-10.2) mg/dL Total Bilirubin (0.0-1.0) mg/dL AST (5-31) U/L ALT (0-31) U/L Alkaline Phosphatase (39-117) U/L Total Protein (6.5-8.0) g/dL Albumin (3.5-5.0) g/dL Beta HCG, Quant mIU/mL Urine Color Urine Appearance Urine pH (5.0-9.0) Ur Specific Eva (1.005-1.025) Urine Protein (Neg-Trace) mg/dL Urine Glucose (UA) (Negative) mg/dL Urine Ketones (Negative) mg/dL Urine Blood (Negative) Urine Nitrite (Negative) Ur Leukocyte Esterase (Negative) Urine RBC (0-2) /HPF Urine WBC (0-5) /HPF Ur Squamous Epith Cells (0-2) /HPF Urine Bacteria (None Seen) Hyaline Casts (0-2) /LPF Influenza Type A (PCR) (Negative) Influenza Type B (PCR) (Negative) RSV RNA Qual (PCR) (Negative) SARS-CoV-2 RNA (RT-PCR) (Negative) Radiology Impression Discussion of test interpretation with radiology: I have reviewed the radiologist's reading. Discharge Plan Discharge Clinical Impression: Urinary tract infection, Adnexal cyst Patient Disposition: Home, Self-Care Additional Instructions: You were found to have a urinary tract infection, the CT scan did not reveal a kidney infection. The remainder of your screening labs were normal. You were found to have a cyst that has associated with the left ovary, this should be followed by your tube blower, you can call to schedule an outpatient appointment, they will likely obtain an ultrasound as an outpatient. Take the cephalexin as directed this is an antibiotic to treat the urinary tract infection. Be sure to take all of the antibiotic. Use the Pyridium as needed for urinary pain, this medication we will cause your urine to become fluorescent orange, this is normal, be sure to increase your fluid intake, drinking 96 oz of water a day. Use the ketorolac for pain take with food Use the dicyclomine as needed for abdominal and urinary pain as well. Follow up with primary care as needed. Prescriptions: New cephalexin 500 mg capsule 500 mg PO Q12H Qty: 13 0RF phenazopyridine [Pyridium] 200 mg tablet 200 mg PO TID PRN (Reason: pain) Qty: 10 0RF dicyclomine 20 mg tablet 20 mg PO QID PRN (Reason: abdominal pain) Qty: 10 0RF ketorolac 10 mg tablet 10 mg PO Q6H PRN (Reason: pain) Qty: 20 0RF Rx Instructions: maximum total duration of 5 days from all oral, intranasal, or parenteral formulations. The patient received an IV dose of Toradol here in the emergency room No Action ascorbic acid (vitamin C) 1,000 mg tablet 1 g PO DAILY 90 Days Qty: 90 0RF methenamine hippurate 1 gram tablet 1 tab PO DAILY ondansetron 4 mg tablet,disintegrating 4 mg PO Q8H 4 Days Qty: 12 0RF nitrofurantoin monohyd/m-cryst [Macrobid] 100 mg capsule 100 mg PO Q12H 5 Days Qty: 10 0RF Rx Instructions: must administer with a meal/food ondansetron 4 mg tablet,disintegrating 4 mg PO Q6-8H PRN (Reason: nausea and vomiting) Qty: 10 0RF doxycycline hyclate 100 mg tablet 100 mg PO BID Qty: 28 0RF metronidazole 500 mg tablet 500 mg PO Q12H Qty: 28 0RF promethazine 25 mg suppository 25 mg AZ Q6H PRN (Reason: nausea and vomiting) Qty: 12 0RF ondansetron 4 mg tablet,disintegrating 4 mg PO Q8H PRN (Reason: nausea and vomiting) Qty: 20 0RF metoclopramide HCl [Reglan] 10 mg tablet 10 mg PO Q6H PRN (Reason: nausea and vomiting) Qty: 20 0RF cefpodoxime 200 mg tablet 200 mg PO BID 14 Days Qty: 28 0RF Rx Instructions: must administer with a meal/food oxycodone 5 mg tablet 5 mg PO Q6H PRN (Reason: pain) Qty: 7 0RF Rx Instructions: Partial Fill upon patient request. Stand Alone Forms: Work/School Release Print Language: Turkmen
[2025-09-21 16:30] LABS: Appearance Urine Turbid; Glucose Urine UA Negative (Negative); PH 5.5 (5.0-9.0); Specific Gravity - Urine 1.025 (1.005-1.025); UMIC TRIGGER UACC YES
[2025-09-21 16:37] LABS: Hematocrit 33.2 % (37.0-47.0); Hemoglobin 9.8 g/dl (12.0-16.0); Mean Corpuscular HGB Conc 29.5 g/dl (31.0-35.0); Mean Corpuscular Hemoglobin 23.0 pg (27.0-33.0); Mean Corpuscular Volume 77.8 fL (80.0-98.0); NRBC Abs Auto 0.000 X10*3/uL (0.0-0.012); NRBC Pct Auto 0.0 /100WBC (0.0-0.2); PLT CLUMP 1; Red Blood Count 4.27 X10*6/uL (4.20-5.50)
[2025-09-21 16:38] LABS: WBC ABN SCTR FOR CBC 1
[2025-09-21 16:47] LABS: Alanine Aminotransferase 12 U/L (0-31); Albumin Level 4.3 g/dL (3.5-5.0); Alkaline Phosphatase 53 U/L (39-117); Anion Gap 10 (12-20); Aspartate Amino Transferase 21 U/L (5-31); Blood Urea Nitrogen 15 mg/dL (9-16); Calcium 9.0 mg/dL (8.4-10.2); Carbon Dioxide 26 mmol/L (22-29); Chloride 107 mmol/L (96-108); Creatinine Clr Calc Pharmacy 94.2; Estimated Glomerular Filt Rate > 60; Potassium 3.7 mmol/L (3.3-5.1); Sodium 139 mmol/L (135-145); Total Protein 7.9 g/dL (6.5-8.0)
[2025-09-21 16:59] LABS: UACC Culture Trigger YES
[2025-09-21 17:03] LABS: Resp Syncy Virus RNA Qual PCR NEGATIVE (Negative); SARS COV2 PCR INHOUSE NEGATIVE (Negative)
[2025-09-21 17:06] LABS: Lymphocytes Percent Manual 20 % (20-40); Monocytes Percent Manual 4 % (2-11); Neutrophils Percent Manual 76 % (45-73)
[2025-09-21 17:07] LABS: Band Neutrophils Percent 0 % (3-5); Large Platelet PRESENT; RBC Morphology NORMAL
[2025-09-21 17:08] LABS: Lymphocytes Absolute Manual 1.2 X10*3/uL (1.2-4.9); Monocytes Absolute Manual 0.2 X10*3/uL (0.1-1.2); Neutrophils Absolute Manual 4.6 X10*3/uL (2.0-8.3); Platelet Count 196 X10*3/uL (160-400); White Blood Count 6.1 X10*3/uL (4.8-10.8)
[2025-09-21 19:01] VITALS: BP 172/87; PULSE 75; RESP 20; TEMP 36.6; O2SAT 100
[2025-09-21] MEDS: iohexoL 350 MG/ML 100 ML INFUS..BTL 85 ML IV (21:09)
[2025-09-21] MEDS: diazePAM 10 MG/2 ML CARTRIDGE 5 MG IVPUSH (22:09)
[2025-09-21 22:47] VITALS: BP 144/88; PULSE 72; RESP 16; TEMP 36.6; O2SAT 99
[2025-09-21 23:05] VITALS: BP 167/81; PULSE 82; RESP 20; TEMP 36.3; O2SAT 100
== END 2025-09-21 23:06 | disposition home or self-care (01) ==
PROVIDERS: Physician Assistant Medical; Registered Nurse Emergency; Emergency Provider Emergency Medicine
DX: N39.0 Urinary tract infection, site not specified (principal); N83.202 Unspecified ovarian cyst, left side; Z03.818 Encounter for observation for suspected exposure to other biological agents ruled out
CPT/HCPCS: 36415; 74177; 80053; 81001; 83605; 84702; 85007; 85027; 87040; 87086; 87088; 87186; 87637; 96365; 96375; 99284; 99285; J0696; J1885; J3360; Q9967

== ENCOUNTER → 2025-09-21 20:30 | Outpatient (BNV) | payer SELFPAY | PROVIDERS: Emergency Provider Emergency Medicine; Visit Provider Radiology Diagnostic Radiology | DX: N30.90 Cystitis, unspecified without hematuria (principal) | CPT/HCPCS: 74177 ==